=== PATIENT | male | born 1935 | race African-American/Black ===

== ENCOUNTER 2016-09-20 17:27 | Inpatient (IN) | payer MEDICARE, OTHER ==
[~2016-09-20] VITALS: Ht 188 cm; Wt 98.0 kg
[~2016-09-20 17:27] MED LIST: AMIODARONE HCL400 M1 ORAL; AMLODIPINE BESYL5 MG ORAL; AVODART0.5 MG ORAL; CARVEDILOL3.125 MG ORAL; COMBIVENT RESPIM4 GM IH; CRESTOR10 M1 ORAL; DOK250 M1 PO; FINASTERIDE5 MG ORAL; FUROSEMIDE20 M1 ORAL; HYDROCODON-ACE1 EA13 ORAL; KLOR-CON 88 MEQ ORAL; LEVAQUIN500 MG ORAL; LOPRESSOR25 M1 ORAL; LOSARTAN POTASS50 MG ORAL; LYRICA50 MG ORAL; MONTELUKAST SOD10 MG ORAL; NITROSTAT0.4 M2 SL; TEMAZEPAM30 MG ORAL; XARELTO10 MG ORAL
[2016-09-20 21:00] VITALS: BP 120/77
[2016-09-20] MEDS ORDERED: GABAPENTIN300 MG ORAL (22:10)
[2016-09-20] MEDS ORDERED: Norco 10mg/325mg tab ORAL PRN (22:30)
[2016-09-21] VITALS: BP 154/82
[2016-09-21] MEDS: DuoNeb 0.5-3(2.5)mg/3ml neb HHN SCH ×4 (02:11→19:00)
[2016-09-21 04:10] VITALS: BP 124/74
[2016-09-21] MEDS: Norco 10mg/325mg tab ORAL SCH ×2 (07:58→17:00)
[2016-09-21 08:00] VITALS: BP 123/80
[2016-09-21] MEDS: Docusate 250mg cap ORAL SCH (08:34)
[2016-09-21] MEDS: Losartan 50mg tab ORAL SCH (08:35)
[2016-09-21] MEDS: Amiodarone 200mg tab ORAL SCH (08:36)
[2016-09-21] MEDS ORDERED: Metoprolol 50mg tab ORAL SCH (09:00)
--- NOTE | 2016-09-21 09:18 | History and Physical Report ---
DATE OF ADMISSION: 09/20/2016 CHIEF COMPLAINT: CHF exacerbation. HISTORY OF PRESENT ILLNESS: The patient is a very pleasant, 80-year-old male. He has a history of hypertension, congestive heart failure, chronic atrial fibrillation, COPD, , BPH, and urinary retention. He has a prior history of aortic aneurysm status post repair. He was seen by his java software architect on the day of admission, complaints of lower extremity edema, worsening dyspnea on exertion and shortness of breath. He was diagnosed with CHF exacerbation. He has been on oral diuretic therapy, but did not improve and he is now admitted for further evaluation and care. PAST MEDICAL HISTORY: As above. PAST SURGICAL HISTORY: As above. MEDICATIONS: Current medications reconciled and reviewed. ALLERGIES: None. SOCIAL HISTORY: The patient is a prior smoker. No alcohol. no drugs. FAMILY HISTORY: None. REVIEW OF SYSTEMS: General: No fever or chills. HEENT: No headaches or visual changes. Cardiopulmonary: No chest pain. Positive shortness of breath and dyspnea on exertion. No orthopnea and PND. Gastrointestinal: No nausea or vomiting. Genitourinary: No urgency or frequency. Musculoskeletal: Positive joint swelling. Neurologic: No evidence of seizures. PHYSICAL EXAMINATION: VITAL SIGNS: Temperature 97.8 degrees, pulse 60, respirations 18, and blood pressure 124/74. GENERAL: The patient is a well-developed male, in no apparent distress. HEART: Regular rate and rhythm. NECK: There is no jugular venous distention. LUNGS: Clear except for diminished breath sounds and some rales at bases. ABDOMEN: Soft, nontender, and nondistended. EXTREMITIES: Without clubbing, cyanosis, or edema. LABORATORY DATA: Labs are pending. ASSESSMENT: This is a pleasant male who complaints of congestive heart failure exacerbation. Problems, 1. Congestive heart failure exacerbation. 2. History of thoracic aortic aneurysm status post repair. 3. Hypertension. 4. Paroxysmal atrial fibrillation. 5. Chronic obstructive pulmonary disease. PLAN: Diuresis. Follow up chest x-ray and labs. Supplemental oxygen as needed. DVT and stress ulcer prophylaxis. Sumit Hallman M.D. DR: Oliva JOB#: [id number] CC:
[2016-09-21 09:33] LABS: TROPONIN I < 0.30 ng/mL (<=0.30)
--- NOTE | 2016-09-21 09:51 | Diagnostic Imaging Report ---
Indication: Abnormal breath sounds Comparison: 11/07/14 A single view chest radiograph was obtained. Findings: Cardiomegaly and enlargement of the aorta noted. Pacemaker and sternotomy are present. Lungs are essentially clear. No pleural effusion appreciated. Impression: No acute disease
[2016-09-21 09:55] LABS: EOSINOPHILS % (AUTO) 10.4 % (0.0-3.0); LYMPHOCYTES % (AUTO) 26.5 % (20.0-45.0); MEAN CORPUSCULAR HEMOGLOBIN 27.9 PG (27.0-31.0); MEAN CORPUSCULAR HGB CONC 30.2 G/DL (32.0-36.0); MEAN CORPUSCULAR VOLUME 92 FL (80-99); MEAN PLATELET VOLUME 7.6 FL (6.5-10.1); MONOCYTES % (AUTO) 7.8 % (1.0-10.0); NEUTROPHILS % (AUTO) 54.3 % (45.0-75.0); PLATELET COUNT 121 K/UL (150-450); RED BLOOD COUNT 4.92 M/UL (4.70-6.10); RED CELL DISTRIBUTION WIDTH 15.1 % (11.6-14.8); WHITE BLOOD COUNT 6.4 K/UL (4.8-10.8)
[2016-09-21 10:06] LABS: ALANINE AMINOTRANSFERASE 9 U/L (3-41); ANION GAP 14 (5-15); ASPARTATE AMINO TRANSFERASE 15 U/L (5-40); CALCIUM 10.3 mg/dL (8.6-10.2); CARBON DIOXIDE 30 mEQ/L (20-30); CHLORIDE 95 mEQ/L (98-107); HEMOLYSIS 3; MAGNESIUM 1.7 mg/dL (1.7-2.5); POTASSIUM 3.5 mEQ/L (3.4-4.9); SODIUM 139 mEQ/L (135-145); TOTAL PROTEIN 7.8 g/dL (6.6-8.7)
[2016-09-21 10:17] LABS: THYROID STIMULATING HORMONE 0.723 uIU/mL (0.300-4.500)
[2016-09-21] MEDS: Norco 10mg/325mg tab ORAL PRN (11:48)
[2016-09-21 12:00] VITALS: BP 110/74
[2016-09-21] MEDS: Solu-MEDROL 40mg Inj IVP SCH ×2 (14:14→20:58)
[2016-09-21 16:00] VITALS: BP 137/91
[2016-09-21] MEDS: Montelukast 10mg tablet ORAL SCH (16:58)
[2016-09-21] MEDS: Xarelto 10mg tab ORAL SCH (16:58)
[2016-09-21 20:00] VITALS: BP 107/71
[2016-09-21] MEDS: Metoprolol 25mg tab ORAL SCH (20:58)
[2016-09-22] VITALS: BP 113/75
[2016-09-22] MEDS: Norco 10mg/325mg tab ORAL SCH ×3 (00:10→13:25)
[2016-09-22] MEDS: DuoNeb 0.5-3(2.5)mg/3ml neb HHN SCH ×2 (01:00→07:22)
[2016-09-22 04:00] VITALS: BP 119/76
--- NOTE | 2016-09-22 05:19 | Progress Note ---
DATE: 09/21/2016 CARDIOLOGY PROGRESS NOTE SUBJECTIVE: The patient feels better. Still short of breath and congested. No chest pain. Monitored rhythm is atrial paced with rare PVC. OBJECTIVE: VITAL SIGNS: Blood pressure 107/71, heart rate 60, and respiratory rate 18. NECK: Supple. LUNGS: With coarse breath sounds and rhonchi. HEART: Regular rhythm and rate. Normal S1 and S2. ABDOMEN: Soft. EXTREMITIES: Trace to 1+ ankle edema, but improved. LABORATORY DATA: White count 6.4, hemoglobin 13.7, potassium 3.5, BUN 9, and creatinine 1. Troponin negative. Pro-natriuretic peptide 279. TSH 0.7. Magnesium 1.7. IMPRESSION: 1. Chronic obstructive pulmonary disease exacerbation. 2. Permanent pacemaker. 3. Dmycf-zv-vonqfsd diastolic congestive heart failure. 4. Status post repair of thoracic aortic aneurysm. 5. Borderline potassium and magnesium levels. PLAN: 1. Continue inhaled bronchodilator. 2. Decrease beta-elyssa. 3. Maintenance dose amiodarone. 4. Steroid taper. 5. Nebulizer for home use. Yvan Encarnacion M.D. DR: Mike JOB#: [id number] CC:
[2016-09-22] MEDS: Norco 10mg/325mg tab ORAL PRN (06:28)
[2016-09-22 07:58] VITALS: BP 128/78
[2016-09-22] MEDS ORDERED: KCl 10% 20 mEq/15ml liquid ORAL ONE (08:00)
[2016-09-22] MEDS ORDERED: KCl 10% 40mEq/30ml liquid ORAL ONE (10:00)
[2016-09-22] MEDS: Losartan 50mg tab ORAL SCH (10:04)
[2016-09-22] MEDS: Amiodarone 200mg tab ORAL SCH (10:05)
[2016-09-22] MEDS: Metoprolol 25mg tab ORAL SCH (10:05)
[2016-09-22] MEDS: Docusate 250mg cap ORAL SCH (10:05)
[2016-09-22] MEDS: Solu-MEDROL 40mg Inj IVP SCH (10:05)
[2016-09-22 11:38] VITALS: BP 136/88
[2016-09-22 15:38] VITALS: BP 114/71
[2016-09-22] MEDS: Xarelto 10mg tab ORAL SCH (16:30)
[2016-09-22] MEDS: Montelukast 10mg tablet ORAL SCH (17:58)
--- NOTE | 2016-09-22 22:48 | Discharge Summary ---
DATE OF ADMISSION: 09/20/2016 DATE OF DISCHARGE: 09/22/2016 ADMISSION DIAGNOSES: 1. Acute on chronic diastolic and systolic heart failure exacerbation. 2. History of thoracic aortic aneurysm status post repair. 3. Hypertension. 4. History of anemia. 5. Chronic kidney disease. 6. Chronic obstructive pulmonary disease. DISCHARGE DIAGNOSES: 1. Acute on chronic diastolic and systolic heart failure exacerbation. 2. History of thoracic aortic aneurysm status post repair. 3. Hypertension. 4. History of anemia. 5. Chronic kidney disease. 6. Chronic obstructive pulmonary disease. HOSPITAL COURSE: The patient is a very pleasant male admitted with complaints of shortness of breath and lower extremity edema. He was admitted for diuretic therapy. He received intravenous Lasix, respiratory treatments, and steroids. He improved quickly. On discharge, he was doing well. The patient will be discharged home with close outpatient followup. DISCHARGE MEDICATIONS: Please see discharge medication list for discharge medications. DIET: Cardiac diet. ACTIVITY: Ad-amy. FOLLOWUP: The patient will follow up in one to two weeks in the office. Sumit Hallman M.D. DR: SERA JOB#: [id number] CC:
--- NOTE | 2016-09-23 00:59 | Progress Note ---
DATE: 09/22/2016 CARDIOLOGY PROGRESS NOTE SUBJECTIVE: The patient has less congestion. No shortness of breath or chest pain. Nebulizer was requested yesterday, however, the order has still not been processed by 4 p.m. OBJECTIVE: VITAL SIGNS: Blood pressure 128/78 to 136/88, oxygen saturation on room air 96%, heart rate 60 and atrial paced, and respiratory rate 20. He is afebrile. HEENT: Conjunctivae are pink. Sclerae are anicteric. No sinus tenderness. Oropharynx clear. Trachea midline. LUNGS: Coarse breath sounds. No wheezing or rales. HEART: Regular rhythm and rate. Normal S1 and S2 with a fourth heart sound and a 1/6 systolic murmur at apex. ABDOMEN: Soft. EXTREMITIES: There is no edema. IMPRESSION: 1. Chronic obstructive pulmonary disease exacerbation, improved. 2. Hypertensive heart disease, now with controlled blood pressure range overall. 3. Acute on chronic diastolic congestive heart failure, clinically compensated. 4. History of thoracic aortic aneurysm repair. 5. Permanent pacemaker. 6. Paroxysmal bronchospasm. PLAN: 1. Outpatient followup. 2. Nebulizer for home use on a p.r.n. basis. 3. Salt restriction. 4. Taper beta blockers. 5. Continue amiodarone. 6. Further medication adjustments will follow as an outpatient as the patient is stable for lower level of care. Yvan Encarnacion M.D. DR: AIYANA JOB#: [id number] CC:
--- NOTE | 2016-09-23 02:08 | Consultation ---
DATE OF CONSULTATION: 09/20/2016 CARDIOLOGY CONSULTATION CONSULTING PHYSICIAN: Yvan Encarnacion M.D. REQUESTING PHYSICIAN: Sumit Hallman M.D. REASON FOR CONSULTATION: Congestive heart failure exacerbation. HISTORY: This is an 80-year-old male with a longstanding history of hypertensive heart disease, paroxysmal atrial fibrillation, and permanent pacemaker. He has undergone repair of a thoracic aortic aneurysm about two years ago. He has been managed medically and remains on antiarrhythmics including amiodarone. The patient was seen in my office last several days ago and noted to have increasing congestion and shortness of breath. He was started on a low-dose diuretic and inhaled bronchodilator. He states that he has difficulty using the inhalers. He continued to progress with the symptoms noted and hospitalization has been initiated due to failure to improve with outpatient management. PAST MEDICAL HISTORY: Permanent pacemaker, chronic obstructive pulmonary disease, status post thoracic aortic aneurysm repair, hypertensive heart disease, diastolic dysfunction, degenerative valve disease, degenerative disk disease, osteoarthritis, prostatic hypertrophy, diverticular disease, paroxysmal atrial fibrillation, and hypothyroidism. MEDICATIONS: Prior to admission, reviewed and reconciled. ALLERGIES: None. SOCIAL HISTORY: Prior smoker. No alcohol or substance abuse. He is a [employer]oration[employer]. REVIEW OF SYSTEMS: No fevers. Some nonproductive cough. No loss of vision or hearing. No chest pain. Some leg swelling noted. He gained a few pounds over the past few days. He has some mucus production that is clear. He has no melena or bright red blood per rectum. He occasionally has difficulty voiding, but no recent change. He has chronic back and hip pain. There is no history of seizure or stroke. Recent echocardiogram revealed normal ejection fraction with concentric hypertrophy and mild tricuspid regurgitation. The patient ambulates with a walker or cane. IMPRESSION: 1. Acute on chronic diastolic congestive heart failure. 2. Paroxysmal atrial fibrillation maintaining sinus rhythm on amiodarone. 3. Permanent pacemaker. 4. History of thoracic aortic aneurysm repair. 5. Chronic obstructive pulmonary disease with mild exacerbation and difficulty using HFA inhalers. 6. Degenerative disk disease with gait abnormality and chronic pain. PLAN: 1. Cautious diuresis. 2. Titrate . 3. Consider steroids if symptoms progress. 4. Mobilize with pain control and fall precautions. Yvan Encarnacion M.D. DR: AIYANA JOB#: [id number] CC:
== END 2016-09-22 18:26 | disposition home or self-care (01) | DRG 291 ==
LOC: 2E 20:00
DX: I13.0 Hypertensive heart and chronic kidney disease with heart failure and stage 1 through stage 4 chronic kidney disease, or unspecified chronic kidney disease (principal); I50.33 Acute on chronic diastolic (congestive) heart failure; J44.1 Chronic obstructive pulmonary disease with (acute) exacerbation; I48.0 Paroxysmal atrial fibrillation; N18.9 Chronic kidney disease, unspecified; N40.1 Benign prostatic hyperplasia with lower urinary tract symptoms; R33.8 Other retention of urine; Z95.0 Presence of cardiac pacemaker
CPT/HCPCS: 36415; 71010; 80053; 83735; 83880; 84443; 84484; 85025; 94640; 94664; J7620

== ENCOUNTER 2017-03-09 11:19 | Outpatient (CLI) | payer MEDICARE, OTHER ==
[~2017-03-09 11:19] MED LIST changes: +GABAPENTIN300 MG ORAL
--- NOTE | 2017-03-09 12:14 | Diagnostic Imaging Report ---
Indication: Chest pain Technique: Two views of the chest Comparison: 09/21/2016 Findings: There is evidence of prior valve replacement and left atrial appendage clipping. Left chest pacemaker is again demonstrated. The lungs and pleural spaces are clear. Heart size is normal. Aorta is tortuous. Impression: No acute process. Stable findings as described
== END 2017-03-09 13:19 | disposition home or self-care (01) ==
LOC: RAD 11:19
DX: R04.2 Hemoptysis (principal); R07.9 Chest pain, unspecified; Z95.0 Presence of cardiac pacemaker; Z95.2 Presence of prosthetic heart valve
CPT/HCPCS: 71020

== ENCOUNTER 2017-08-08 11:59 | Inpatient (IN) | payer MEDICARE, OTHER ==
[~2017-08-08] VITALS: Ht 188 cm; Wt 99.8 kg
[2017-08-08] MEDS ORDERED: FUROSEMIDE20 M1 PO (15:38)
[2017-08-08] MEDS ORDERED: METOPROLOL SUCC25 MG PO (15:38)
[2017-08-08] MEDS ORDERED: FINASTERIDE5 MG PO (15:38)
[2017-08-08] MEDS ORDERED: LOSARTAN POTAS100 MG PO (15:38)
[2017-08-08] MEDS ORDERED: VITAMIN D22000 UNIT PO (15:39)
[2017-08-08 16:00] VITALS: BP 125/75
[2017-08-08] MEDS: HYDROcodone/Acetamin 10/325 tab ORAL PRN (17:41)
[2017-08-08] MEDS: Docusate 250mg cap ORAL SCH (19:00)
[2017-08-08 19:54] LABS: BASOPHILS % (AUTO) 0.9 % (0.0-2.0); EOSINOPHILS % (AUTO) 2.8 % (0.0-3.0); HEMATOCRIT 36.5 % (42.0-52.0); HEMOGLOBIN 11.4 G/DL (14.2-18.0); LYMPHOCYTES % (AUTO) 19.4 % (20.0-45.0); MEAN CORPUSCULAR VOLUME 91 FL (80-99); MONOCYTES % (AUTO) 7.5 % (1.0-10.0); NEUTROPHILS % (AUTO) 69.4 % (45.0-75.0); PLATELET COUNT 135 K/UL (150-450); RED BLOOD COUNT 4.02 M/UL (4.70-6.10); RED CELL DISTRIBUTION WIDTH 15.5 % (11.6-14.8); WHITE BLOOD COUNT 7.3 K/UL (4.8-10.8)
[2017-08-08 20:00] VITALS: BP 101/64
[2017-08-08 20:10] LABS: ALANINE AMINOTRANSFERASE 13 U/L (12-78); ALBUMIN 3.4 G/DL (3.4-5.0); ALBUMIN/GLOBULIN RATIO 0.8 (1.0-2.7); ALKALINE PHOSPHATASE 60 U/L (46-116); ANION GAP 4 mmol/L (5-15); ASPARTATE AMINO TRANSFERASE 13 U/L (15-37); BILIRUBIN,TOTAL 0.8 MG/DL (0.2-1.0); BLOOD UREA NITROGEN 11 mg/dL (7-18); CALCIUM 9.9 MG/DL (8.5-10.1); CARBON DIOXIDE 33 MMOL/L (21-32); CHLORIDE 105 MMOL/L (98-107); CHOLESTEROL 138 MG/DL (< 200); CREATININE 1.2 MG/DL (0.55-1.30); HDL CHOLESTEROL 79 MG/DL (40-60); SODIUM 142 MMOL/L (136-145); TRIGLYCERIDES 19 MG/DL (30-150)
[2017-08-08] MEDS: Atorvastatin 20mg tab ORAL SCH (21:15)
[2017-08-08] MEDS: Lyrica 50mg cap ORAL SCH (21:18)
[2017-08-09] VITALS: BP 115/74
[2017-08-09 04:00] VITALS: BP_SYST 110; BP_SYST 99; BP_DIAS 50; BP_DIAS 69
[2017-08-09 08:00] VITALS: BP 118/75
[2017-08-09] MEDS ORDERED: Xarelto 10mg tab ORAL SCH (09:00)
[2017-08-09] MEDS: HYDROcodone/Acetamin 10/325 tab ORAL PRN ×2 (09:16→20:14)
[2017-08-09] MEDS: Montelukast 10mg tablet ORAL SCH (09:23)
[2017-08-09] MEDS: Docusate 250mg cap ORAL SCH (09:23)
[2017-08-09] MEDS: Metoprolol Succinate XL 25mg tab ORAL SCH (09:23)
[2017-08-09] MEDS: Losartan 50mg tab ORAL SCH (09:24)
[2017-08-09] MEDS: Amiodarone 200mg tab ORAL SCH (09:25)
[2017-08-09] MEDS: Lyrica 50mg cap ORAL SCH ×2 (09:26→21:04)
--- NOTE | 2017-08-09 09:29 | Diagnostic Imaging Report ---
Indication: Altered mental status Technique: spiral acquisitions obtained through the brain. Angled axial and coronal 5 x 5 mm slices were reconstructed. No IV contrast utilized. Radiation dose was minimized using automated exposure control Total dose length product 1354.97 mGycm. CTDIvol(s) 70.38 mGy Comparison: none FINDINGS: No acute hemorrhage or edema. No mass effect or midline shift. There is age-related enlargement of the ventricles and extra axial CSF spaces. There is periventricular deep white matter ischemic change. Normal hamilton-white differentiation. There is evidence of prior bilateral cataract surgery. There is bilateral ethmoid and right sphenoid sinus mucosal thickening. The mastoids are clear. Intact calvarium. IMPRESSION: Chronic and age-related changes. Negative for acute intracranial bleed or mass effect -Agrees stat rad The CT scanner at [facility] is accredited by the [employer] and the scans are performed using protocols designed to limit radiation exposure to as low as reasonably achievable to attain images of sufficient resolution adequate for diagnostic evaluation
[2017-08-09 12:00] VITALS: BP 134/77
--- NOTE | 2017-08-09 12:21 | Neurology Progress Note ---
Objective Physical Exam Last Vital Signs Date Time Temp Pulse Resp B/P (MAP) Pulse Ox O2 Delivery O2 Flow Rate FiO2 08/09/17 10:15 98.4 08/09/17 09:26 63 118/75 08/09/17 08:00 19 98 Room Air Laboratory Tests Test 08/08/17 19:00 White Blood Count 7.3 K/UL (4.8-10.8) Red Blood Count 4.02 M/UL (4.70-6.10) L Hemoglobin 11.4 G/DL (14.2-18.0) L Hematocrit 36.5 % (42.0-52.0) L Mean Corpuscular Volume 91 FL (80-99) Mean Corpuscular Hemoglobin 28.4 PG (27.0-31.0) Mean Corpuscular Hemoglobin Concent 31.3 G/DL (32.0-36.0) L Red Cell Distribution Width 15.5 % (11.6-14.8) H Platelet Count 135 K/UL (150-450) L Mean Platelet Volume 10.6 FL (6.5-10.1) H Neutrophils (%) (Auto) 69.4 % (45.0-75.0) Lymphocytes (%) (Auto) 19.4 % (20.0-45.0) L Monocytes (%) (Auto) 7.5 % (1.0-10.0) Eosinophils (%) (Auto) 2.8 % (0.0-3.0) Basophils (%) (Auto) 0.9 % (0.0-2.0) Sodium Level 142 MMOL/L (136-145) Potassium Level 4.0 MMOL/L (3.5-5.1) Chloride Level 105 MMOL/L (98-107) Carbon Dioxide Level 33 MMOL/L (21-32) H Anion Gap 4 mmol/L (5-15) L Blood Urea Nitrogen 11 mg/dL (7-18) Creatinine 1.2 MG/DL (0.55-1.30) Estimat Glomerular Filtration Rate mL/min (>60) Glucose Level 136 MG/DL (74-106) H Calcium Level 9.9 MG/DL (8.5-10.1) Total Bilirubin 0.8 MG/DL (0.2-1.0) Aspartate Amino Transf (AST/SGOT) 13 U/L (15-37) L Alanine Aminotransferase (ALT/SGPT) 13 U/L (12-78) Alkaline Phosphatase 60 U/L (46-116) Total Protein 7.5 G/DL (6.4-8.2) Albumin 3.4 G/DL (3.4-5.0) Globulin 4.1 g/dL Albumin/Globulin Ratio 0.8 (1.0-2.7) L Triglycerides Level 19 MG/DL (30-150) L Cholesterol Level 138 MG/DL (< 200) LDL Cholesterol 61 mg/dL (<100) HDL Cholesterol 79 MG/DL (40-60) H Cholesterol/HDL Ratio 1.7 (3.3-4.4) L Impression/Recommendations Problems: (1) acute onset left [place] pulsy. (2) Generalized ischemic cerebrovascular disease Status: not improved, unchanged Recommendations #[id number] MOSHE RUSHING Aug 09, 2017 12:21
[2017-08-09 16:00] VITALS: BP 107/69
--- NOTE | 2017-08-09 16:15 | History and Physical Report ---
DATE OF ADMISSION: 08/08/2017 CHIEF COMPLAINT: Possible stroke. HISTORY OF PRESENT ILLNESS: The patient is a pleasant male. He has extensive past medical history includes a history of thoracic aneurysm, status post repair, hypertension, hypertensive heart disease, history of paroxysmal atrial fibrillation, and DVT. He presented to the office on the day of admission with complaints of drooping of the left face. According to the patient and his , he noted the onset of left facial droop and difficulty swallowing about two days prior to admission. He did not present until now. He denies any focal weakness or numbness. He has been drooling. He denies any headaches or visual changes. The patient was directly admitted with concern about a possible stroke. PAST MEDICAL HISTORY: As above. PAST SURGICAL HISTORY: Thoracic aneurysm repair, history of pacemaker, paroxysmal atrial fibrillation, COPD, history of degenerative disk disease, lumbar radiculopathy, and peripheral neuropathy. CURRENT MEDICATIONS: Reconciled and reviewed. ALLERGIES: None. FAMILY HISTORY: None. SOCIAL HISTORY: Negative for alcohol or drugs. The patient is a prior smoker. 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 PHYSICAL EXAMINATION: HEENT: There is a left facial droop. Pupils are equal, round, and reactive to light. Oropharynx clear. NECK: Supple. No jugular venous distention. No carotid bruits. HEART: Regular rate and rhythm. LUNGS: Clear. ABDOMEN: Soft, nontender, and nondistended. EXTREMITIES: Without clubbing, cyanosis, or edema. LABORATORY AND DIAGNOSTIC DATA: Labs, white count 7, hemoglobin 11. LDL 61. CT of the head currently pending. ASSESSMENT: This is a pleasant male admitted with complaints of left facial droop possibly secondary to stroke or possibly Lieberman's palsy. PROBLEM LIST: 1. Possible cerebrovascular accident, possible Lieberman's palsy. 2. History of thoracic aneurysm, status post repair. 3. Conduction system disease, status post pacemaker. 4. Hypertension. 5. COPD. 6. History of chronic lower back pain. 7. Peripheral neuropathy. PLAN: CT of the head. We will hold Xarelto until bleed has been ruled out. Neurology and Cardiology evaluations. Continue outpatient cardiac regimen. Get a swallow evaluation. Sumit Hallman M.D. DR: CLEOPATRA JOB#: [id number] CC:
[2017-08-09 20:00] VITALS: BP 129/78
--- NOTE | 2017-08-09 20:00 | Consultation ---
DATE OF CONSULTATION: 08/09/2017 NEUROLOGICAL CONSULTATION CONSULTING PHYSICIAN: Ambrosio Clark M.D. REQUESTING PHYSICIAN: Sumit Hallman M.D. HISTORY OF PRESENT ILLNESS: This 81-year-old gentleman seen in neurological consultation to evaluate the possible stroke. According to the patient in the last couple of months, he is bothered with hemoptysis. He was seen recently by a "specialist" and no cause of bleeding from his throat noted. Yesterday, he noticed that food was drooling from left side of the mouth. With this, he was sent to this facility for further assessment and treatment. Stat CT of the brain was obtained. This revealed no evidence of acute intracranial abnormalities. There were periventricular deep white matter ischemic changes. No evidence of acute stroke. No hemorrhage. No midline shift. Lab work included chemistry panel with blood sugar 136. Normal lipid panel. CBC study with mild anemia, hemoglobin 11.4 and hematocrit 36.5. Since admission till present, there were no further changes. The patient informed me that physical therapy was seeing him this morning and assisted him with ambulation. There were no changes in his gait. He was evaluated by Speech Therapy, found with mild aphagia, and placed on soft mechanical diet. PAST MEDICAL HISTORY: The patient has history of hypertension, hypertensive heart disease, history of paroxysmal atrial fibrillation. He underwent thoracic aortic aneurysm repair two years ago, following which he developed abnormal gait. He has a history of diastolic dysfunction, degenerative joint disease, prostatic hypertrophy, hypothyroidism, and COPD. MEDICATIONS: His treatment prior to admission included amiodarone, Avodart, vitamin D, finasteride, furosemide, gabapentin 300 mg q.i.d., [place] as needed, losartan, metoprolol, montelukast, nitro, Lyrica 100 mg b.i.d., Xarelto 20 mg daily, Crestor 10 mg daily, and temazepam. ALLERGIES: None reported. SOCIAL HISTORY: The patient lives at home. He has no history of alcohol or drug abuse. Previously a smoker. Hinduism. FAMILY HISTORY: Noncontributory. REVIEW OF SYMPTOMS: The patient indicates presence of facial asymmetry, feeling left eye getting slightly larger with some redness yesterday. He denies unilateral weakness, numbness, tingling. He admitted having hoarse voice, in the last couple of months hemoptysis. Shortness of breath on exertion. No chest pain. No palpitations. Gait abnormal, using walker, limited ambulation. PHYSICAL EXAMINATION: GENERAL: A well-developed, well-nourished, pleasant man, not in acute distress. VITAL SIGNS: Now are stable. Blood pressure 118/75, heart rate of 63, and temperature 98.3. HEENT: Head is normocephalic. There is no evidence of trauma. Eyes, ears, and throat are clear. There is slight tearing from the left eye. CRANIAL NERVE VII: Significant left facial droop, mild left periorbital weakness. CRANIAL NERVE IX THROUGH XII: Tongue is midline. Voice somewhat hoarse. Normal palate elevation. MOTOR EXAMINATION: Normal muscle tone and strength 5/5 in all extremities. There is a slight decrease in lateral hamstring 5-/5. Muscle tone is normal. Deep tendon reflexes 1+ bilaterally symmetric with absent both ankle jerks. Plantar response is flexor. No pathological responses. SENSORY: Normal to pinprick and light touch. COORDINATION: Normal [id number] test. GAIT: Positive Romberg test. Gait very ataxia . IMPRESSION: 1. New onset of left-sided Lieberman's palsy. Rule out minor right-sided lacunar stroke, ?old versus new. 2. Ischemic cerebrovascular disease, probably previous lacunar stroke without gait ataxia. 3. Paroxysmal atrial fibrillation. 4. Hypertension. 5. Status post thoracic aortic aneurysm repair. 6. Chronic obstructive pulmonary disease. 7. Hemoptysis. RECOMMENDATION: The patient has no strong evidence of acute stroke, but has definite peripheral left facial palsy. There is minor strength asymmetry in both lower extremities, which may indicate old lacunar stroke. This goes back to the time where the patient had acute onset of gait ataxia, which he claims occurred after having thoracic surgery. At this time, the patient to continue with his current treatment. A short course of steroid may improve outcome. Thank you for allowing me to see this interesting patient in neurological consultation. Ambrosio Clark M.D. DR: Shira JOB#: [id number] CC:
[2017-08-09] MEDS: Atorvastatin 20mg tab ORAL SCH (21:03)
[2017-08-10] VITALS: BP 128/74
[2017-08-10 04:00] VITALS: BP 111/73
--- NOTE | 2017-08-10 05:00 | Consultation ---
DATE OF CONSULTATION: 08/08/2017 CARDIOLOGY CONSULTATION The patient is seen in my office earlier today. REASON FOR CONSULTATION: Possible acute cerebrovascular insult in the setting of paroxysmal atrial fibrillation and coagulopathy due to rivaroxaban therapy. HISTORY OF PRESENT ILLNESS: This is a male, known to me for over 20 years of care. He is now 81 years of age. He presented to the office for evaluation of drooping of his left face with difficulty holding his secretions and chewing as well as swallowing. The symptoms have been ongoing for two days prior to admission and apparently worsened today. No weakness of his extremities was noted and he has been compliant with all his medications including his rivaroxaban anticoagulant. PAST MEDICAL HISTORY: 1. Status post repair of thoracic aortic aneurysm. 2. Paroxysmal atrial fibrillation. 3. Hypertensive heart disease. 4. Chronic obstructive pulmonary disease. 5. Permanent pacemaker. 6. Degenerative disk disease with chronic lumbar radiculopathy. 7. Peripheral neuropathy. MEDICATIONS: Prior to admission, reviewed and reconciled. ALLERGIES: None. SOCIAL HISTORY: Former smoker. He is a Christianity. No alcohol or substance abuse. FAMILY HISTORY: None known. PHYSICAL EXAMINATION: VITAL SIGNS: Blood pressure 125/75, pulse 60, respiratory rate 18, and afebrile. HEENT: Conjunctiva pink. Sclerae are anicteric. There is difficulty with strength of the left eye muscles. There is droop of the left facies. NECK: Supple. LUNGS: Coarse breath sounds. CARDIAC: Regular rhythm and rate. Normal S1, S2 with a 1/6 systolic murmur at the apex. Pacemaker pocket site noted. ABDOMEN: Soft. EXTREMITIES: No edema. All surgical scars are healed. LABORATORY AND DIAGNOSTIC DATA: CAT scan of the brain with no acute process. Monitored rhythm reveals atrial pacing. White count 7.3 and hemoglobin 11.4. Potassium 4, BUN 11, and creatinine 1.2. Glucose 136. LDL cholesterol 61. IMPRESSION: 1. Possible acute cerebrovascular insult versus Lieberman's palsy on the left. 2. Hypertensive heart disease with controlled blood pressure. 3. Paroxysmal atrial fibrillation maintaining sinus rhythm with amiodarone. 4. Permanent pacemaker with stable function. 5. Chronic obstructive pulmonary disease with no active bronchospasm. 6. Diastolic dysfunction with no signs of acute congestive heart failure. 7. History of thoracic aortic aneurysm repair. PLAN: 1. Neurologic evaluation. 2. Full anticoagulation. 3. Titrate antihypertensives. 4. P.r.n. bronchodilators. 5. Aspiration precautions. 6. Consider steroids if acute stroke is ruled out. This may limit affects of Lieberman's palsy. Yvan Phil Encarnacion DR: AIYANA JOB#: [id number] CC:
--- NOTE | 2017-08-10 05:00 | Progress Note ---
DATE: 08/09/2017 CARDIOLOGY PROGRESS NOTE SUBJECTIVE: The patient continues to have difficulty with chewing and he still has drooping of his left facies. He has not had any weakness of his left extremities. PHYSICAL EXAMINATION: VITAL SIGNS: Blood pressure 129/78, pulse 62, respiratory rate 16, and afebrile. Monitored rhythm is paced. LUNGS: Coarse breath sounds. HEART: Regular rhythm and rate. Normal S1, S2. ABDOMEN: Soft, no edema. NEUROLOGIC: Left facies with droop. Tongue is midline and there is also weakness of his left eye muscle. IMPRESSION: 1. Lieberman's palsy. 2. Cerebrovascular disease with prior lacunar infarct. 3. Hypertensive cardiomyopathy. 4. Paroxysmal atrial fibrillation. 5. Permanent pacemaker. 6. Status post repair of thoracic aortic aneurysm. 7. Chronic obstructive pulmonary disease. PLAN: 1. Steroid trial. 2. Titrate antihypertensives. 3. Maintenance dose diuretic. 4. Continue amiodarone for maintenance of sinus rhythm. 5. Full anticoagulation with rivaroxaban. Yvan Encarnacion M.D. DR: ANDREW JOB#: [id number] CC:
[2017-08-10] MEDS: HYDROcodone/Acetamin 10/325 tab ORAL PRN (05:18)
[2017-08-10 08:00] VITALS: BP 104/75
[2017-08-10] MEDS: Amiodarone 200mg tab ORAL SCH (09:00)
[2017-08-10] MEDS ORDERED: Xarelto 10mg tab ORAL SCH (09:00)
[2017-08-10] MEDS: Metoprolol Succinate XL 25mg tab ORAL SCH (09:00)
[2017-08-10] MEDS: Losartan 50mg tab ORAL SCH (09:00)
[2017-08-10] MEDS: Docusate 250mg cap ORAL SCH (09:01)
[2017-08-10] MEDS: Montelukast 10mg tablet ORAL SCH (09:01)
[2017-08-10] MEDS: Lyrica 50mg cap ORAL SCH ×2 (09:02→21:00)
--- NOTE | 2017-08-10 11:45 | Neurology Progress Note ---
Interim History Interim History ROS Limited/Unobtainable: No Complaints: hemoptysis, very concern. Events: started on steroids , no change in facial palsy Objective Physical Exam Last Vital Signs Date Time Temp Pulse Resp B/P (MAP) Pulse Ox O2 Delivery O2 Flow Rate FiO2 08/10/17 09:00 68 104/75 08/10/17 08:00 97.6 18 99 Room Air 97.6 General: well developed, well nourished, no acute distress Head: normocophalic, atraumatic Neck: no rigidity Neurologic Exam Mental Status: awake, alert, oriented x4, normal cognition Speech: normal speech, no dysarthia Language: normal language, no aphasia Cranial Nerve II: fundus normal, visual steele, no papilledema Cranial Nerves III, IV, : PERRLA, EOMI, pupils Cranial Nerve V: other - reduced PP L face Cranial Nerve VII: other - L face droop weakness L periorbital muscles Cranial Nerve VIII: no nystagmus Cranial Nerve IX: gag response Cranial Nerve XI: SCM symmetric, trapezii function normal Cranial Nerve XII: tongue midline, no tongue atrophy/fasciculations Motor System: normal muscle tone, strength 5/5, no involuntary movement, no muscle wasting Sensory: normal pinprick Coordination: normal finger to nose bilaterally, normal heel to jacob bilaterally Deep Tendon Reflexes: 0 bicep (L), 0 bicep (R), 0 tricep (L), 0 tricep (R), 0 brachioradialis (L), 0 brachioradialis (R), 0 knee (L), 0 knee (R), 0 ankle (L) , 0 ankle (R) Reflexes: mute plantar (L), mute plantar (R) Impression/Recommendations Problems: (1) acute onset left [place] pulsy. (2) Generalized ischemic cerebrovascular disease Status: stable, not improved, unchanged Recommendations #[id number] ok steroids x 6 days w/u of hemoptysis ? ENT MOSHE RUSHING Aug 10, 2017 11:45
[2017-08-10 12:00] VITALS: BP 123/73
[2017-08-10] MEDS ORDERED: Norco 5mg/325mg tab ORAL PRN (13:15)
[2017-08-10] MEDS ORDERED: HYDROcodone/Acetamin 10/325 tab ORAL PRN (13:30)
--- NOTE | 2017-08-10 15:09 | Diagnostic Imaging Report ---
Indication: Difficulty swallowing, left facial droop Technique: No IV contrast, per referring physician request Spiral acquisitions obtained through the face and neck Multiplanar reconstructions were generated. Total dose length product 697.57 mGycm. CTDIvol(s) 20.06 mGy. Radiation dose was minimized using automated exposure control. Facial and neck CT ordered; imaging volume extended cephalad to include the entire face Comparison: none Findings: The nasopharynx, oropharynx and hypopharynx, larynx are unremarkable. The cervical esophagus and proximal thoracic esophagus are unremarkable. The bilateral parapharyngeal spaces are clear, symmetric. No prevertebral soft tissue swelling is demonstrated. Minimal mucosal thickening is seen in the bilateral ethmoid sinuses, the right sphenoid sinus, and the left maxillary sinus. Polyp or mucocyst retention cyst is seen in the floor of the left maxillary sinus. There is questionably a faint calcification within the right submandibular gland. The salivary glands are otherwise unremarkable. No cervical mass or adenopathy. There is evidence of extensive prior dental extractions. The mastoid air cells are clear. The bones demonstrate reversal of the normal cervical lordosis, extensive cervical spondylosis, and at least mild lower cervical spinal stenosis. There is evidence of prior laminectomies of C3 and C4. There is extensive facet arthrosis and likely significant neural foraminal stenoses bilaterally. The thyroid is mildly enlarged and bulky but no discrete abnormality demonstrated. The included upper thoracic structures are remarkable for the presence of pulmonary hyperinflation and bullous changes. A calcified granuloma is seen in the right upper lobe. The ascending thoracic aorta is ectatic bordering on aneurysmal. Surgical clips are seen surrounding it and intake history describes prior surgical repair. The descending thoracic aorta is also aneurysmal proximally. There is a left chest pacemaker. No supraclavicular mass or adenopathy demonstrated. Impression: No definite mass or abnormality demonstrated to explain surgically history of difficulty swallowing. Note that evaluation for possible abscess is limited in the absence of IV contrast, but there is no soft tissue swelling or other finding to suggest such Mild sinus disease, as described Extensive cervical spondylosis and at least mild lower cervical spinal stenosis. Evidence of prior C3 and C4 laminectomies. Other degenerative changes, as described Mildly enlarged bulky thyroid, without discrete abnormality Equivocal small right submandibular salivary gland sialolith Evidence of COPD Evidence of old granulomatous disease in the right upper lobe Ectasia and aneurysmal changes of the visualized thoracic aorta, with postsurgical changes, clinical history of prior thoracic aortic aneurysm surgical repair Pacemaker The CT scanner at [facility] is accredited by the [employer] and the scans are performed using protocols designed to limit radiation exposure to as low as reasonably achievable to attain images of sufficient resolution adequate for diagnostic evaluation.
[2017-08-10 16:00] VITALS: BP 106/62
--- NOTE | 2017-08-10 16:14 | Cardiology Report ---
APPROVED REPORT EKG Measurement Heart [id number] CO 308P [id number] Atrial Pacemaker Left axis deviation Left ventricular hypertrophy with QRS widening and repolarization abnormality Abnormal ECG
[2017-08-10 20:00] VITALS: BP 104/70
--- NOTE | 2017-08-10 21:40 | General Progress Note ---
Assessment/Plan Problem List: (1) Hemoptysis ICD Codes: R04.2 - Hemoptysis SNOMED: 50070766 (2) Stroke ICD Codes: I63.9 - Cerebral infarction, unspecified SNOMED: 047317120 (3) acute onset left [place] pulsy. (4) COPD exacerbation ICD Codes: J44.1 - Chronic obstructive pulmonary disease with (acute) exacerbation SNOMED: 128178435 (5) Acute exacerbation of CHF (congestive heart failure) Status: stable Assessment/Plan steroids speech rx hold antiplt rx D/w - to have laryngoscopy follow ct neck Subjective ROS Limited/Unobtainable: No Constitutional: Reports: malaise, weakness HEENT: Reports: no symptoms Cardiovascular: Reports: no symptoms Respiratory: Reports: no symptoms Gastrointestinal/Abdominal: Reports: no symptoms Genitourinary: Reports: no symptoms Neurologic/Psychiatric: Reports: pre-existing deficit Endocrine: Reports: no symptoms Hematologic/Lymphatic: Reports: no symptoms Allergies: Coded Allergies: No Known Allergies (Verified Allergy, Mild, 01/23/09) All Systems: reviewed and negative except above Subjective ?hemoptysis last night. facial droop not any better. on steroids for possible bells palsy. Objective Last 24 Hour Vital Signs Date Time Temp Pulse Resp B/P (MAP) Pulse Ox O2 Delivery O2 Flow Rate FiO2 08/10/17 16:00 97.8 60 21 106/62 98 Room Air 97.8 08/10/17 15:30 63 08/10/17 12:00 97.5 73 20 123/73 96 Room Air 97.5 08/10/17 11:27 71 08/10/17 09:00 68 104/75 08/10/17 09:00 104/75 08/10/17 09:00 68 104/75 08/10/17 08:00 97.6 68 18 104/75 99 Room Air 97.6 08/10/17 07:50 71 08/10/17 04:00 98.1 69 20 111/73 95 Room Air 98.1 08/10/17 04:00 61 08/10/17 00:16 60 08/10/17 00:00 97.0 62 20 128/74 96 Room Air 97.0 Intake and Output 08/09/17 08/10/17 19:00 07:00 Intake Total 430 ml Output Total 1300 ml 700 ml Balance -870 ml -700 ml Intake Oral 430 ml Output Urine Total 1300 ml 700 ml # Voids 3 3 Height (Feet): 6 Height (Inches): 2.00 Weight (Pounds): 220 General Appearance: WD/WN, alert Neck: supple Cardiovascular: normal rate Respiratory/Chest: lungs clear, normal breath sounds Abdomen: normal bowel sounds, non tender, soft, no organomegaly Edema: no edema noted Arm (L), no edema noted Arm (R), no edema noted Leg (L), no edema noted Leg (R), no edema noted Pedal (L), no edema noted Pedal (R), no edema noted Generalized Neurologic: other - left facial droop BALDOMERO JURADO Aug 10, 2017 21:40
[2017-08-10] MEDS: Atorvastatin 20mg tab ORAL SCH (22:26)
[2017-08-11] VITALS: BP 97/66
[2017-08-11 04:00] VITALS: BP 102/70
--- NOTE | 2017-08-11 07:51 | General Progress Note ---
Assessment/Plan Problem List: (1) Hemoptysis ICD Codes: R04.2 - Hemoptysis SNOMED: 07279719 (2) Stroke ICD Codes: I63.9 - Cerebral infarction, unspecified SNOMED: 331210260 (3) acute onset left [place] pulsy. (4) COPD exacerbation ICD Codes: J44.1 - Chronic obstructive pulmonary disease with (acute) exacerbation SNOMED: 014753176 (5) Acute exacerbation of CHF (congestive heart failure) Status: stable, progressing Assessment/Plan steroids speech rx hold antiplt rx.xarelto D/w ent- no obvious source of bleeding on laryngoscopy pulm eval pending pain rx dc planning if no additional w/u needed steroid taper as outpt Subjective ROS Limited/Unobtainable: No Constitutional: Reports: malaise, weakness HEENT: Reports: no symptoms Cardiovascular: Reports: no symptoms Respiratory: Reports: cough Gastrointestinal/Abdominal: Reports: no symptoms Genitourinary: Reports: no symptoms Neurologic/Psychiatric: Reports: pre-existing deficit Endocrine: Reports: no symptoms Hematologic/Lymphatic: Reports: no symptoms Allergies: Coded Allergies: No Known Allergies (Verified Allergy, Mild, 01/23/09) All Systems: reviewed and negative except above Subjective no more hemoptysis. xarelto dcd night before lsat due to coughing/spitting up [place]. ct noted. Objective Last 24 Hour Vital Signs Date Time Temp Pulse Resp B/P (MAP) Pulse Ox O2 Delivery O2 Flow Rate FiO2 08/11/17 04:00 60 08/11/17 04:00 97.0 61 20 102/70 100 Room Air 97.0 08/11/17 00:00 97.0 64 20 97/66 97 Room Air 97.0 08/11/17 00:00 64 08/10/17 20:00 97.0 64 20 104/70 100 Room Air 97.0 08/10/17 19:19 64 08/10/17 16:00 97.8 60 21 106/62 98 Room Air 97.8 08/10/17 15:30 63 08/10/17 12:00 97.5 73 20 123/73 96 Room Air 97.5 08/10/17 11:27 71 08/10/17 09:00 68 104/75 08/10/17 09:00 104/75 08/10/17 09:00 68 104/75 08/10/17 08:00 97.6 68 18 104/75 99 Room Air 97.6 08/10/17 07:50 71 Intake and Output 08/10/17 08/11/17 19:00 07:00 Intake Total 600 ml Output Total 800 ml 1500 ml Balance -200 ml -1500 ml Intake Oral 600 ml Output Urine Total 800 ml 1500 ml # Voids 3 Height (Feet): 6 Height (Inches): 2.00 Weight (Pounds): 220 Objective General Appearance: WD/WN, alert Neck: supple Cardiovascular: normal rate Respiratory/Chest: lungs clear, normal breath sounds Abdomen: normal bowel sounds, non tender, soft, no organomegaly Edema: no edema noted Arm (L), no edema noted Arm (R), no edema noted Leg (L), no edema noted Leg (R), no edema noted Pedal (L), no edema noted Pedal (R), no edema noted Generalized Neurologic: other - left facial droop BALDOMERO JURADO Aug 11, 2017 07:51
[2017-08-11 08:00] VITALS: BP 106/65
--- NOTE | 2017-08-11 08:02 | Consultation ---
Consult Note Consult Note 81 year old patient presents with Acton Palsy. He has extensive past medical history and has noted hemoptysis. He presented to the office on the day of admission with complaints of drooping of the left face. He has persistent left facial droop and difficulty swallowing. He was seen by neuro and cleared for discharge. He has been drooling. he currently is doing well without distress. he is currently on anticoagulation and prednisone. no Asthma but possible COPD. no distress at present PAST MEDICAL HISTORY: thoracic aneurysm, status post repair, hypertension, hypertensive heart disease, history of paroxysmal atrial fibrillation, and DVT, history of pacemaker, COPD, history of degenerative disk disease, lumbar radiculopathy, and peripheral neuropathy. CURRENT MEDICATIONS: Reconciled and reviewed. ALLERGIES: None. FAMILY HISTORY: None. SOCIAL HISTORY: Negative for alcohol or drugs. The patient is a prior smoker. He is a [employer]. PHYSICAL EXAMINATION: 102/70 97.6 74 14 HEENT: There is a left facial droop. Pupils are equal, round, and reactive to light. Oropharynx clear without bleeding NECK: Supple. No jugular venous distention. No carotid bruits. HEART: Regular rate and rhythm. without MRG LUNGS: Clear. without rhonchi or wheeze ABDOMEN: Soft, nontender, and nondistended. EXTREMITIES: Without clubbing, cyanosis, or edema. Labs Test 08/08/17 19:00 White Blood Count 7.3 K/UL (4.8-10.8) Red Blood Count 4.02 M/UL (4.70-6.10) Hemoglobin 11.4 G/DL (14.2-18.0) Hematocrit 36.5 % (42.0-52.0) Mean Corpuscular Volume 91 FL (80-99) Mean Corpuscular Hemoglobin 28.4 PG (27.0-31.0) Mean Corpuscular Hemoglobin Concent 31.3 G/DL (32.0-36.0) Red Cell Distribution Width 15.5 % (11.6-14.8) Platelet Count 135 K/UL (150-450) Mean Platelet Volume 10.6 FL (6.5-10.1) Neutrophils (%) (Auto) 69.4 % (45.0-75.0) Lymphocytes (%) (Auto) 19.4 % (20.0-45.0) Monocytes (%) (Auto) 7.5 % (1.0-10.0) Eosinophils (%) (Auto) 2.8 % (0.0-3.0) Basophils (%) (Auto) 0.9 % (0.0-2.0) Sodium Level 142 MMOL/L (136-145) Potassium Level 4.0 MMOL/L (3.5-5.1) Chloride Level 105 MMOL/L (98-107) Carbon Dioxide Level 33 MMOL/L (21-32) Anion Gap 4 mmol/L (5-15) Blood Urea Nitrogen 11 mg/dL (7-18) Creatinine 1.2 MG/DL (0.55-1.30) Estimat Glomerular Filtration Rate mL/min (>60) Glucose Level 136 MG/DL (74-106) Calcium Level 9.9 MG/DL (8.5-10.1) Total Bilirubin 0.8 MG/DL (0.2-1.0) Aspartate Amino Transf (AST/SGOT) 13 U/L (15-37) Alanine Aminotransferase (ALT/SGPT) 13 U/L (12-78) Alkaline Phosphatase 60 U/L (46-116) Total Protein 7.5 G/DL (6.4-8.2) Albumin 3.4 G/DL (3.4-5.0) Globulin 4.1 g/dL Albumin/Globulin Ratio 0.8 (1.0-2.7) Triglycerides Level 19 MG/DL (30-150) Cholesterol Level 138 MG/DL (< 200) LDL Cholesterol 61 mg/dL (<100) HDL Cholesterol 79 MG/DL (40-60) Cholesterol/HDL Ratio 1.7 (3.3-4.4) PROBLEM LIST: 1. Lieberman's palsy. 2. History of thoracic aneurysm, status post repair. 3. Conduction system disease, status post pacemaker. 4. Hypertension. 5. COPD. 6. History of chronic lower back pain. 7. Peripheral neuropathy 8. Hemoptysis, likely due to anticoagulation and described nasal bleeding PLAN care noted ok to discharge consider CT chest after discharge monitor for change with anticoagulation would be happy to see as an outpatient for further evaluation impression, plan, and exam edited and reviewed in detail care discussed with CORNELIA RENE Aug 11, 2017 08:02
[2017-08-11] MEDS: Metoprolol Succinate XL 25mg tab ORAL SCH (09:00)
[2017-08-11] MEDS: Amiodarone 200mg tab ORAL SCH (09:00)
[2017-08-11] MEDS: Losartan 50mg tab ORAL SCH (09:00)
[2017-08-11] MEDS: Docusate 250mg cap ORAL SCH (09:12)
[2017-08-11] MEDS: Montelukast 10mg tablet ORAL SCH (09:12)
[2017-08-11] MEDS: Lyrica 50mg cap ORAL SCH (09:13)
[2017-08-11 12:00] VITALS: BP 90/56
[2017-08-11] MEDS ORDERED: Aspirin Baby 81mg ORAL SCH (13:00)
[2017-08-11] MEDS ORDERED: PREDNISONE10 M2 PO ×3 (13:03→13:05)
--- NOTE | 2017-08-11 21:00 | Operative Note - Dictated ---
DATE OF OPERATION: 08/10/2017 PROCEDURE: Fiberoptic laryngoscopy. SURGEON: Cornel Armas M.D. ANESTHESIA: None. INDICATION FOR PROCEDURE: Epistaxis and hemoptysis of unknown etiology. PREOPERATIVE DIAGNOSES: Epistaxis and hemoptysis of unknown etiology. POSTOPERATIVE DIAGNOSES: Epistaxis and hemoptysis of unknown etiology. FINDINGS: Basically normal exam. TECHNIQUE: The patient was prepped and draped in the usual manner. Scope placed both through the right and left nostrils to evaluate the nasal cavity and then going into the right nostril and further passed the soft palate to visualize the larynx. Scope was then removed. ESTIMATED BLOOD LOSS: Zero. COUNTS: None. DRAINS: None. The patient is stable before, throughout, and after the procedure. Please note, there was no bleeding during any of this procedure as well. Cornel Armas M.D. DR: PAVAN JOB#: [id number] CC: PETER
--- NOTE | 2017-08-11 21:30 | Consultation ---
DATE OF CONSULTATION: 08/11/2017 HEAD AND NECK SURGERY INITIAL CONSULTATION CONSULTING PHYSICIAN: Cornel Armas M.D. REQUESTING PHYSICIAN: Sumit Hallman M.D. INDICATION FOR CONSULTATION: This is an 81-year-old male who for months is complaining of spitting up blood. He has seen Dr. Day at the [facility], who did not find anything. He showed me some red-stained mucus he coughed up in the morning that he saved. PAST MEDICAL HISTORY: His past medical history through the patient and the records is significant for thoracic aneurysm repair, pacemaker, paroxysmal atrial fibrillation, COPD, degenerative disk disease, lumbar radiculopathy, and peripheral neuropathy. He was a smoker in the past, but not for many years. He is [employer] and has negative history for alcohol and drugs. He was admitted to the hospital on 08/08/2017 with left facial droop with consideration of Lieberman palsy, stroke, cerebrovascular accident. He did have head CT a day ago, which showed chronic age-related changes, but no acute disease. He also had a CT of his neck, which was done yesterday on my recommendation, mild sinus disease, what I was looking for was any vascular malformations, there were none found. MEDICATIONS: His medications in the hospital include prednisone, Pollock, Protonix, Xarelto, Cordarone, Lasix, Cozaar, Toprol, Proscar, Singulair, Restoril, Lipitor, and Colace. PHYSICAL EXAMINATION: VITAL SIGNS: Height 187.96 cm, weight 99.79 kg, and BMI 28.2 kg/m2. GENERAL: He is conversant, alert, awake, and stable. HEENT: Mouth is normal except he is missing many teeth. Fiberoptic exam, his nose did not show any site of bleeding. Possibly he had a few areas of hypovascularity, but I did not see any area that was bleeding. Down to his vocal cords, I did not see any area to explain the bleed. ASSESSMENT: He may be coughing hard and popping blood vessels back in his nose, but not evident. It is not significant amount of blood. He coughs very hard and certainly he has as issue and needs to be addressed, now that we ruled out any significant issues in his head and neck, both myself and Dr. Day a few months ago. He does have history of COPD. PLAN: The CT scan was done after my conversation with Dr. Hallman and noted above. I did see the patient yesterday and just did not complete the dictation, so doing that today. Thank you very much for asking my opinion in the care and treatment of this patient. Cornel Armas M.D. DR: DIEGO JOB#: [id number] CC: PETER
--- NOTE | 2017-08-12 08:52 | Diagnostic Imaging Report ---
APPROVED REPORT CPT Code: 66130 Vascular Symptoms CVA/TIA: Doppler Spectral Velocity Analysis RightLeft RIGHT SIDE: CCA - Imaging reveals no significant plaque in the common carotid artery. ICA arteries. The Doppler signal indicates the degree of stenosis is minimal (05- 10%) in the internal carotid, and in the external carotid arteries. VERTEBRAL - The vertebral artery is patent, without evidence of stenosis or steal. LEFT SIDE: CCA - Imaging reveals no significant plaque within the extracranial carotid arteries. The Doppler spectral flow analysis is within normal limits throughout the extracranial carotid arteries. VERTEBRAL - The vertebral artery is patent, without evidence of stenosis or steal.
--- NOTE | 2017-08-12 11:20 | Discharge Summary ---
Discharge Summary Discharge Summary Discharge Summary DATE OF ADMISSION: 08/08/2017 DATE OF DISCHARGE: 08/11/2017 CONSULTANTS: 1. Dr. Yvan Encarnacion 2. Dr. Adriano Castañeda 3. Dr. Cornel Armas ATTENDING: Dr. Sumit Hallman BRIEF HOSPITAL COURSE: Patient is an 81-year-old male who has extensive medical history, including thoracic aneurysm, status post repair, hypertension, hypertensive heart disease , history of paroxysmal atrial fibrillation, and DVT. He presented to the office on the day of admission with complaints of drooping of the left face. He had left facial droop and noted difficulty swallowing for 2 days. He denied any focal weakness or numbness. He denied any headaches or visual changes. He was then directly admitted to the hospital for concerns of a possible stroke. Xarelto was placed on hold. He underwent neuro evaluation with Dr. Clark. Head CT showed no definite mass or abnormality to explain difficulty swallowing. He had no strong evidence of acute stroke, but has discontinued peripheral left facial palsy. He was given trial of steroids. He also complained of hemoptysis. 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 He had a neck CT that showed no definite mass or abnormality to explain difficulty swallowing. There was no vascular malformations found. On 08/11/2017, he underwent fiberoptic laryngoscopy and showed epistaxis and hemoptysis of unknown etiology. He was eventually cleared for discharge home, to follow-up with Dr. Ricketts for an outpatient chest CT. FINAL DIAGNOSES: 1. Hemoptysis 2. Acute onset of left Lieberman's palsy 3. Generalized ischemic cerebrovascular disease 4. Hypertensive cardiomyopathy 5. Paroxysmal atrial fibrillation 6. Permanent pacemaker 7. Cerebrovascular disease with prior lacunar infarct 8. COPD DISPOSITION: Patient was discharged home. DISCHARGE MEDICATIONS: Refer to Discharge Medication List. Continue with tapering doses of steroids. I have been assigned to dictate discharge summary on this account, and I was not involved in the patient's management. Paty Lowry NP Aug 12, 2017 11:20
--- NOTE | 2017-08-13 03:45 | Progress Note ---
DATE: 08/10/2017 CARDIOLOGY PROGRESS NOTE Late entry for 08/10/2017. SUBJECTIVE: The patient was seen and evaluated. Case was discussed with Dr. Armas. He is status post laryngoscopy due to hemoptysis. No acute findings noted. CT scan of the neck is planned. The patient has no chest pain. His left facial weakness has decreased and there is no new focal weakness noted. OBJECTIVE: VITAL SIGNS: Blood pressure 106/62, pulse 60, and respirations 21. Afebrile. HEENT: Facial droop on the left. NECK: Supple. LUNGS: Clear. CARDIAC: Regular. Normal S1, S2 with a fourth heart sound and a 1/4 diastolic murmur. ABDOMEN: Soft. EXTREMITIES: No edema. IMPRESSION: 1. Paroxysmal atrial fibrillation, suppressed with amiodarone. 2. History of thoracic aortic repair. 3. Chronic obstructive pulmonary disease. 4. Chronic bronchitis. 5. Hemoptysis due to anticoagulation. 6. Lieberman's palsy. 7. Acute on chronic diastolic congestive heart failure. 8. Hypertensive cardiomyopathy. PLAN: 1. Discontinue rivaroxaban. 2. Resume aspirin. 3. Continue amiodarone, bronchodilators, steroids, and respiratory hygiene. 4. Titration of antihypertensives. 5. Maintenance dose diuretic. Yvan Encarnacion M.D. : AIYANA JOB#: [id number] CC:
--- NOTE | 2017-08-13 05:30 | Progress Note ---
DATE: 08/11/2017 CARDIOLOGY PROGRESS NOTE Late entry, 08/11/2017. SUBJECTIVE: No more hemoptysis. The patient is off anticoagulation. Anti-platelet therapy with aspirin has resumed. ENT evaluation negative. CT scan of the neck with no abnormalities. OBJECTIVE: VITAL SIGNS: Blood pressure 102/70, pulse 61, and respirations 20. LUNGS: Coarse breath sounds. Scattered rhonchi. No wheezing. HEART: Regular rhythm and rate. Normal S1, S2. A 1/4 diastolic decrescendo. ABDOMEN: Soft. EXTREMITIES: No edema. NEUROLOGIC: Left facial weakness and droop has improved. IMPRESSION: 1. Lieberman's palsy. 2. No acute cerebrovascular accident. 3. History of thoracic aortic aneurysm repair. 4. Paroxysmal atrial fibrillation, suppressed with amiodarone. 5. Hemoptysis resolved, likely due to COPD, bronchitis, and coagulopathy while on anticoagulants. 6. Hypertensive heart disease with stable blood pressure control. PLAN: 1. Steroid taper as outpatient as facial droop recovers. 2. Continue anti-platelet therapy. 3. No anticoagulation. 4. Respiratory bronchodilator therapy. 5. Maintain current antihypertensives with hold parameters based on outpatient monitoring. Yvan Encarnacion M.D. DR: AIYANA JOB#: [id number] CC:
--- NOTE | 2017-08-16 13:34 | Diagnostic Imaging Report ---
Indications: Dysphagia Technique: Patient ingested multiple substances under the supervision of speech pathology. Video fluoroscopic recording performed. Total fluoroscopy time 201 seconds. Total dose area product 0.90558 mGycm2 Comparison: none Findings: Supraglottic laryngeal penetration is observed with ingestion of thin liquid barium. Penetration of nectar thick liquid barium also demonstrated mild early pooling of honey thick liquid barium, no significant residual. No issues with barium puree Impression: Positive for penetration of thin liquid barium and nectar thick liquid barium Please refer to speech pathology report for more detailed analysis
== END 2017-08-11 14:55 | disposition home or self-care (01) | DRG 73 ==
LOC: OBSVTOIN 13:42 → 2E 13:42
PROC: 0CJS8ZZ Inspection of Larynx, Via Natural or Artificial Opening Endoscopic (ICD-10-PCS; principal; 2017-08-10)
DX: G51.0 Bell's palsy (principal); I50.33 Acute on chronic diastolic (congestive) heart failure; R04.2 Hemoptysis; D68.32 Hemorrhagic disorder due to extrinsic circulating anticoagulants; I48.0 Paroxysmal atrial fibrillation; J44.9 Chronic obstructive pulmonary disease, unspecified; Z95.0 Presence of cardiac pacemaker; G62.9 Polyneuropathy, unspecified; M51.16 Intervertebral disc disorders with radiculopathy, lumbar region; Z79.01 Long term (current) use of anticoagulants; Z86.73 Personal history of transient ischemic attack (TIA), and cerebral infarction without residual deficits; N40.0 Benign prostatic hyperplasia without lower urinary tract symptoms; E03.9 Hypothyroidism, unspecified; Z87.891 Personal history of nicotine dependence; J42 Unspecified chronic bronchitis; T45.515A Adverse effect of anticoagulants, initial encounter; I11.0 Hypertensive heart disease with heart failure
CPT/HCPCS: 36415; 70450; 70490; 74230; 80053; 80061; 85025; 93005; 93880

== ENCOUNTER 2017-12-14 15:25 | Outpatient (CLI) | payer MEDICARE, OTHER ==
[~2017-12-14 15:25] MED LIST changes: +FINASTERIDE5 MG PO; +FUROSEMIDE20 M1 PO; +LOSARTAN POTAS100 MG PO; +METOPROLOL SUCC25 MG PO; +PREDNISONE10 M2 PO; +VITAMIN D22000 UNIT PO
--- NOTE | 2017-12-14 16:40 | Diagnostic Imaging Report ---
Indication: Chronic back pain Technique: Spiral acquisitions obtained through the thoracic spine. No IV contrast utilized. Multiplanar reconstructions were generated. Total dose length product 1184.55 mGycm. CTDIvol(s) 29.41 mGy. Dose reduction achieved using automated exposure control Comparison: none Findings: The bony alignment is normal. Vertebral body heights are preserved. There is degenerative disc narrowing of the lower cervical spine. There are degenerative proliferative changes of the lower thoracic and upper lumbar spine. There is degenerative neural foraminal narrowing at C7-T1 bilaterally. At the thoracic levels, no significant disc bulge or protrusion, spinal stenosis, or neural foraminal stenosis. The included extraspinal soft tissues demonstrate a very large cyst coming off of the right kidney but this is incompletely included and therefore cannot be measured. There is evidence of a cardiac pacemaker. The thoracic disc spaces are preserved. No acute fractures. No dislocations. Impression: No acute bony trauma Mild degenerative changes, as described No evidence of significant thoracic neural impingement. Incidental finding large right renal cyst, incompletely visualized The CT scanner at [facility] is accredited by the [employer] and the scans are performed using protocols designed to limit radiation exposure to as low as reasonably achievable to attain images of sufficient resolution adequate for diagnostic evaluation.
--- NOTE | 2017-12-14 16:53 | Diagnostic Imaging Report ---
Indications: Chronic back pain Technique: Spiral acquisitions obtained through the lumbar spine. Multiplanar reconstructions were generated. No IV contrast utilized. Total dose length product 563.77 mGycm. CTDIvol(s) 19.3 mGy. Dose reduction achieved using automated exposure control Comparison: none Findings: Bony alignment is normal. Vertebral body heights are preserved. There is [id number] apposition of the L3, L4, L5, and S1 spinous processes. No acute fractures. No dislocations. At T12-L1, there is vacuum formation, indicating early degenerative change, but no significant disc narrowing. There is bilateral facet arthrosis. No significant disc bulge or protrusion, spinal stenosis, or neural foraminal stenosis. At L1-2, there is circumferential annular bulge. This results in mild to moderate narrowing of the spinal canal. There is bilateral facet arthrosis, resulting in mild narrowing of the bilateral neural foramina. The disc space is preserved, although there is vacuum phenomenon indicating early degenerative change. At L2-3, circumferential annular bulge results in mild narrowing of the spinal canal and mild compromise of the bilateral neural foramina. There is minimal bilateral facet arthrosis. There is mild degenerative disc narrowing At L3-4, there is vacuum phenomenon within the disc but no significant disc narrowing. There are degenerative proliferative changes. There is minimal bilateral facet arthrosis. There is mild circumferential annular bulge, but no definite significant spinal stenosis or neural foraminal narrowing. At L4-5, there is mild degenerative disc narrowing. There is considerable endplate irregularity, on both sides of the disc. There is minimal bilateral facet arthrosis. There is minimal circumferential annular bulge which does not significantly impinge upon the spinal canal. There is slight left paracentral evidence of foraminal disc protrusion, which may impinge slightly on the lateral recess. No significant neural foraminal compromise is evident. At L5-S1, there is mild degenerative disc narrowing. There is considerable irregularity of both endplates, with numerous subchondral cysts and subchondral sclerosis. Vacuum formation indicates degenerative change and likely absence of infection. There is bilateral facet arthrosis, resulting in mild bilateral neural foraminal stenosis. No significant disc bulge or protrusion or spinal stenosis. There are degenerative changes of the bilateral sacroiliac joints, with subchondral sclerosis and subchondral cysts on the iliac side bilaterally, and vacuum formation and joint space narrowing on the left, Included extraspinal soft tissues demonstrate colonic diverticulosis. There are at least 2 right renal cysts, incompletely included, that coming off of the upper pole being quite large. Impression: No acute bony trauma Degenerative changes, as detailed on a level by level basis above. Incidental finding of right renal cysts The CT scanner at [facility] is accredited by the [employer] and the scans are performed using protocols designed to limit radiation exposure to as low as reasonably achievable to attain images of sufficient resolution adequate for diagnostic evaluation.
== END 2017-12-14 17:25 | disposition home or self-care (01) ==
LOC: CAT 15:25
DX: M51.36 Other intervertebral disc degeneration, lumbar region (principal); N20.0 Calculus of kidney; K57.90 Diverticulosis of intestine, part unspecified, without perforation or abscess without bleeding
CPT/HCPCS: 72125; 72128; 72131

== ENCOUNTER 2018-03-07 15:00 | Outpatient (RCR) | payer MEDICARE, OTHER | END 2018-03-15 | disposition home or self-care (01) | LOC: PTY 15:00 | DX: R26.89 Other abnormalities of gait and mobility (principal); M54.17 Radiculopathy, lumbosacral region; M24.561 Contracture, right knee; I48.0 Paroxysmal atrial fibrillation; Z95.0 Presence of cardiac pacemaker; J44.9 Chronic obstructive pulmonary disease, unspecified; G62.9 Polyneuropathy, unspecified | CPT/HCPCS: 97110; 97116; 97162; G8978; G8979 ==

== ENCOUNTER 2018-03-22 12:55 | Outpatient (RCR) | payer MEDICARE, OTHER | END 2018-04-14 | disposition home or self-care (01) | LOC: PTY 12:55 | DX: R26.89 Other abnormalities of gait and mobility (principal); M54.16 Radiculopathy, lumbar region; M24.561 Contracture, right knee; M24.551 Contracture, right hip; G51.0 Bell's palsy; I48.91 Unspecified atrial fibrillation; J44.9 Chronic obstructive pulmonary disease, unspecified; Z95.0 Presence of cardiac pacemaker ==

== ENCOUNTER 2018-05-27 15:21 | Inpatient (IN) | payer MEDICARE, OTHER ==
[~2018-05-27] VITALS: Ht 188 cm; Wt 101.4 kg
[2018-05-27 15:35] VITALS: BP 166/66
--- NOTE | 2018-05-27 15:35 | NUR ---
ED Nurse Note: PT WALKED IN TO ER TODAY FROM HOME. AOX4. PT C/O SOB X 2-3 DAYS. LUNG SOUNDS CLEAR IN ALL LOBES. RR22 AT 90% O2 SAT ON 2L O2 VIA NC. PT HAS HX OF COPD. PT APPEARS SOB WITH EXERTION BUT NO DISTRESS SEEN AT REST.
[2018-05-27] MEDS ORDERED: Sodium Chloride 500ML 500 ML IV ONE (15:53)
[2018-05-27] MEDS ORDERED: Acetaminophen 500mg (ES) tab ORAL ONE (16:00)
[2018-05-27] MEDS ORDERED: Solu-MEDROL 125mg Inj IVP ONE (16:00)
--- NOTE | 2018-05-27 16:00 | NUR ---
ED Nurse Note: XRAY AT BEDSIDE.
[2018-05-27] MEDS: Ipratropium 0.02% Inh Soln 2.5ml UD HHN SCH ×3 (16:11→16:43)
[2018-05-27] MEDS: Albuterol ud Inhalation HHN SCH ×3 (16:14→16:45)
[2018-05-27 16:29] LABS: HEMATOCRIT 34.2 % (42.0-52.0); HEMOGLOBIN 10.4 G/DL (14.2-18.0); MEAN CORPUSCULAR VOLUME 84 FL (80-99); PLATELET COUNT 166 K/UL (150-450); RED BLOOD COUNT 4.05 M/UL (4.70-6.10); RED CELL DISTRIBUTION WIDTH 17.2 % (11.6-14.8); WHITE BLOOD COUNT 15.6 K/UL (4.8-10.8)
--- NOTE | 2018-05-27 16:30 | NUR ---
ED Nurse Note: PT STATES HE IS UNABLE TO GIVE URINE SAMPLE AT THIS TIME. PT REFUSES STRAIGHT CATHETER.
[2018-05-27] MEDS ORDERED: ASPIRIN EC325 MG ORAL (16:31)
[2018-05-27] MEDS ORDERED: TAMSULOSIN HCL0.4 MG ORAL (16:31)
[2018-05-27] MEDS ORDERED: ZOLPIDEM TARTRA10 MG ORAL (16:31)
[2018-05-27 16:37] LABS: ANION GAP 7 mmol/L (5-15); BLOOD UREA NITROGEN 16 mg/dL (7-18); CALCIUM 10.8 MG/DL (8.5-10.1); CARBON DIOXIDE 30 MMOL/L (21-32); CHLORIDE 102 MMOL/L (98-107); CREATININE 1.4 MG/DL (0.55-1.30); SODIUM 139 MMOL/L (136-145)
--- NOTE | 2018-05-27 16:37 | Diagnostic Imaging Report ---
EXAM: XR Chest, 1 View CLINICAL HISTORY: Shortness of breath TECHNIQUE: Frontal view of the chest. COMPARISON: Chest x-ray dated 03/09/17 FINDINGS: Lungs: Patchy opacities in bilateral lower lungs. Pleural space: Unremarkable. The costophrenic angles are sharp. No visible pneumothorax. Heart: Status post heart valve replacement. Borderline enlarged heart, however cardiac silhouette is magnified by portable film technique. Mediastinum: Unremarkable. Bones/joints: Status post median sternotomy. Sternal wires appear intact. Tubes, lines and devices: Cardiac pacer in the left chest wall with the lead tips in the right atrium and right ventricle regions. EKG leads overlie the thorax. IMPRESSION: Patchy opacities in bilateral lower lungs, which may represent pneumonia versus atelectasis.
[2018-05-27] MEDS ORDERED: Piperacillin/Tazobactam 3.375 GM in NS 110 ML IVPB ONE (16:45)
[2018-05-27] MEDS ORDERED: Azithromycin 500 MG in NS 275 ML IV ONE (16:45)
[2018-05-27 16:50] LABS: ALANINE AMINOTRANSFERASE 16 U/L (12-78); ALBUMIN 2.8 G/DL (3.4-5.0); ALBUMIN/GLOBULIN RATIO 0.6 (1.0-2.7); ALKALINE PHOSPHATASE 57 U/L (46-116); ASPARTATE AMINO TRANSFERASE 20 U/L (15-37); BILIRUBIN,TOTAL 1.4 MG/DL (0.2-1.0); CKMB < 0.5 NG/ML (0.0-3.6); CREATINE KINASE 153 U/L (26-308)
[2018-05-27 16:52] LABS: BILIRUBIN,DIRECT 0.5 MG/DL (0.0-0.3)
--- NOTE | 2018-05-27 17:00 | NUR ---
ED Nurse Note: PT REMINDED AGAIN THAT URINE SAMPLE IS NEEDED. PT STATES HE IS UNABLE AT THIS TIME AND CONTINUES TO REFUSE STRAIGHT CATHETER.
--- NOTE | 2018-05-27 17:12 | NUR ---
ED Nurse Note: second latic acid specimen sent down to the lab.
[2018-05-27 17:20] VITALS: BP 99/47
--- NOTE | 2018-05-27 17:50 | NUR ---
ED Nurse Note: TELE UNIT CALLED FOR PT TRANSFER. REPORT GIVEN TO JENNIFER OSORIO. PER BLEACHING SUPERVISOR, HOLD PT IN ER UNTIL 1615. WILL CONTINUE TO MONITOR PT UNTIL THAT TIME AND THEN TRANSFER UP TO TELE UNIT.
--- NOTE | 2018-05-27 18:00 | Emergency Room Report ---
History of Present Illness General Chief Complaint: Dyspnea/Respdistress Source: Patient, Medical Record Present Illness HPI 82-year-old M presents to ED for evaluation. Coming from home with shortness of breath 3 days. Hypoxic in triage. History of COPD. Notes cough is productive with yellowish phlegm. Has temperature of 101.5. Denies chest pain. Sick contacts or recent travel. No other aggravating relieving factors. Denies any other associated symptoms Allergies: Coded Allergies: No Known Allergies (Verified , 01/23/09) Patient History Past Medical History: HTN, COPD Past Surgical History: pacemaker Pertinent Family History: none Social History: Denies: smoking, alcohol use, drug use Immunizations: UTD Reviewed Nursing Documentation: PMH: Agreed; PSxH: Agreed Nursing Documentation-PMH Hx Hypertension: Yes Hx Pacemaker: Yes - L chest pacemaker Hx Asthma: Yes Hx COPD: Yes Hx Diabetes: No Hx Cancer: No Hx Gastrointestinal Problems: Yes - constipation Hx Dialysis: No Hx Neurological Problems: Yes - Hx Cerebrovascular Accident: No Hx Seizures: No Hx Peripheral Neuropathy: Yes Hx Memory Loss: Yes Hx Dizziness: Yes Hx Headaches: Yes Hx Weakness: Yes Review of Systems All Other Systems: negative except mentioned in HPI Physical Exam Vital Signs Date Time Temp Pulse Resp B/P (MAP) Pulse Ox O2 Delivery O2 Flow Rate FiO2 05/27/18 15:34 101.5 83 15 122/71 90 Nasal Cannula 2.0 05/27/18 16:16 28 Sp02 EP Interpretation: reviewed, normal General Appearance: no apparent distress, alert, GCS 15, non-toxic Head: normocephalic Eyes: bilateral eye normal inspection, bilateral eye PERRL ENT: normal ENT inspection Neck: normal inspection Respiratory: chest non-tender, lungs clear, decreased breath sounds, crackles, speaking full sentences, wheezing Cardiovascular #1: regular rate, rhythm, no edema Gastrointestinal: normal inspection Rectal: deferred Genitourinary: no CVA tenderness Musculoskeletal: normal inspection Neurologic: alert, oriented x3, responsive, motor strength/tone normal, sensory intact, speech normal Psychiatric: normal inspection Skin: normal inspection Lymphatic: normal inspection Procedures Critical Care Time Critical Care Time i. I feel this is a highly complex case requiring extensive working including EKG/Rhythm strip, Xray/CT/US, Blood/urine lab work, repeat exams while in ED, and administration of strong opiates/narcotics for pain control, admission to hospital or close patient follow up. Total time: 40 min bedside evaluation and treatment excludes procedures (EKG). Reason for critical care: hypoxic, pneumonia, elevated troponin Possible complications: hypotension, hypertension, NC, shock, arrhythmias, metabolic acidosis, end organ damage, respiratory failure. Interventions: labs, EKG, CXR, nebs, antibiotics, aspirin, Lasix, discussion with cardiology Course: Patient presents with shortness of breath, hypoxic, fever. History of COPD. Breathing treatments started. Chest x-ray shows bilateral infiltrates. Lactic elevated. Troponin elevated. BNP greater than 4000. No chest pain. Given aspirin. Given Lasix. Given broad-spectrum antibiotics. Discussed with cardiology Consultations: nursing staff, EMS, family Performed by: Dr Blanchard Tolerated well condition = serious j. because of unstable vital signs this patient had a condition that could potentially threaten life or limb. I feel this is a critical patient who required my full attention while patient was considered critical. Total Critical Care Time excluding procedures was greater than 35 minutes Medical Decision Making Diagnostic Impression: Primary Impression: Pneumonia Qualified Codes: J18.1 - Lobar pneumonia, unspecified organism Additional Impressions: COPD (chronic obstructive pulmonary disease) Qualified Codes: J44.9 - Chronic obstructive pulmonary disease, unspecified Sepsis Qualified Codes: A41.9 - Sepsis, unspecified organism Elevated troponin CHF (congestive heart failure) Qualified Codes: I50.9 - Heart failure, unspecified ER Course Hospital Course 82-year-old M presenting to ED with SOB, fever, hypoxic Differential diagnoses include: Pneumonia, CHF exacerbation, pneumothorax, fluid overload Clinical course Patient placed on stretcher. On monitoring manager with hypoxia on room air. After initial history and physical, I ordered nebulizer treatments. I ordered labs, IV fluids, EKG, chest x-ray, blood cultures, UA. Labs - leukocytosis noted, hemoglobin/hematocrit stable, Cr 1.4, lactic 2.6, trop 0.115, BNP > 4000 CXR - bilateral infiltrates Given Tylenol. Given broad-spectrum antibiotics. Given Lasix. 30 mL per KG fluid bolus withheld because of fluid overload due to CHF Case discussed with Dr. Hallman/Alysha and he agreed to the patient to his service for further care and support I feel this is a highly complex case requiring extensive working including EKG/ Rhythm strip, Xray/CT/US, Blood/urine lab work, repeat exams while in ED, and administration of strong opiates/narcotics for pain control, admission to hospital or close patient follow up. Diagnosis - pneumonia, COPD, sepsis, elevated troponin, CHF Patient admitted to telemetry in serious condition Labs Test 05/27/18 16:10 05/27/18 17:00 White Blood Count 15.6 K/UL (4.8-10.8) Red Blood Count 4.05 M/UL (4.70-6.10) Hemoglobin 10.4 G/DL (14.2-18.0) Hematocrit 34.2 % (42.0-52.0) Mean Corpuscular Volume 84 FL (80-99) Mean Corpuscular Hemoglobin 25.6 PG (27.0-31.0) Mean Corpuscular Hemoglobin Concent 30.4 G/DL (32.0-36.0) Red Cell Distribution Width 17.2 % (11.6-14.8) Platelet Count 166 K/UL (150-450) Mean Platelet Volume 6.5 FL (6.5-10.1) Neutrophils (%) (Auto) % (45.0-75.0) Lymphocytes (%) (Auto) % (20.0-45.0) Monocytes (%) (Auto) % (1.0-10.0) Eosinophils (%) (Auto) % (0.0-3.0) Basophils (%) (Auto) % (0.0-2.0) Differential Total Cells Counted 100 Neutrophils % (Manual) 90 % (45-75) Lymphocytes % (Manual) 3 % (20-45) Monocytes % (Manual) 7 % (1-10) Eosinophils % (Manual) 0 % (0-3) Basophils % (Manual) 0 % (0-2) Band Neutrophils 0 % (0-8) Platelet Estimate Adequate Platelet Morphology Normal Polychromasia 1+ Hypochromasia 1+ Anisocytosis 1+ Sodium Level 139 MMOL/L (136-145) Potassium Level 4.0 MMOL/L (3.5-5.1) Chloride Level 102 MMOL/L (98-107) Carbon Dioxide Level 30 MMOL/L (21-32) Anion Gap 7 mmol/L (5-15) Blood Urea Nitrogen 16 mg/dL (7-18) Creatinine 1.4 MG/DL (0.55-1.30) Estimat Glomerular Filtration Rate mL/min (>60) Glucose Level 138 MG/DL (74-106) Lactic Acid Level 2.60 mmol/L (0.4-2.0) 2.10 mmol/L (0.66-2.22) Calcium Level 10.8 MG/DL (8.5-10.1) Total Bilirubin 1.4 MG/DL (0.2-1.0) Direct Bilirubin 0.5 MG/DL (0.0-0.3) Aspartate Amino Transf (AST/SGOT) 20 U/L (15-37) Alanine Aminotransferase (ALT/SGPT) 16 U/L (12-78) Alkaline Phosphatase 57 U/L (46-116) Total Creatine Kinase 153 U/L (26-308) Creatine Kinase MB < 0.5 NG/ML (0.0-3.6) Creatine Kinase MB Relative Index 0.3 Troponin I 0.115 ng/mL (0.000-0.056) Pro-B-Type Natriuretic Peptide 4238 pg/mL (0-125) Total Protein 7.8 G/DL (6.4-8.2) Albumin 2.8 G/DL (3.4-5.0) Globulin 5.0 g/dL Albumin/Globulin Ratio 0.6 (1.0-2.7) EKG Diagnostic Results Rate: normal Rhythm: other - junctional ST Segments: no acute changes ASA given to the pt in ED: Yes Rhythm Strip Diag. Results EP Interpretation: yes Rhythm: no PVC's, no ectopy Chest X-Ray Diagnostic Results Chest X-Ray Diagnostic Results : Chest X-Ray Ordered: Yes # of Views/Limited/Complete: 1 View Indication: Shortness of Breath EP Interpretation: Yes Interpretation: no pneumothorax, other - bilateral opacities, infiltrates Impression: Other - CHF/PNA Electronically Signed by: Electronically signed by Shay Blanchard MD Last Vital Signs Date Time Temp Pulse Resp B/P (MAP) Pulse Ox O2 Delivery O2 Flow Rate FiO2 05/27/18 17:20 102.4 89 22 99/47 95 Nasal Cannula 2.0 05/27/18 17:18 28 Status: improved Disposition: ADMITTED INPATIENT Condition: Serious Referrals: Yvan Encarnacion MD (PCP) Shay Blanchard MD May 27, 2018 18:00
--- NOTE | 2018-05-27 19:00 | NUR ---
NURSE NOTES: report received from Damián RODRIGUEZ. patient a/o x 4. no c/o pain and SOB at this time. call light and frequent used objects left with in reach. bed at lowest position rails up x 2 for safety reasons.all belonging reviewed per protocol. patient placed on terminal superintendent. iv intact and patent. report given to Rob RODRIGUEZ.
--- NOTE | 2018-05-27 19:05 | NUR ---
NURSE NOTES: cont.. Needs and wants anticipated and attended, will continue plan of care and monitor for any changes noted
--- NOTE | 2018-05-27 19:05 | NUR ---
NURSE NOTES: Received report from Rene Langley RN. Patient in bed AAO x4 with HOB elevated at semi fowlers, no complaint of acute pain at this time, kept clean, dry, and comfortable in bed. IV line intact and patent. Safety precaution in place; siderails x3 up, call light within reach, bed in lowest position, brakes and alarm on at all times. nurse monitoring in place per protocol. Needs and wants anticipatye
[2018-05-27 20:00] VITALS: BP 91/56
[2018-05-27] MEDS ORDERED: Milk of Magnesia 30ml Ud ORAL PRN (20:00)
[2018-05-27] MEDS: Tamsulosin 0.4mg cap ORAL SCH (21:16)
[2018-05-27] MEDS: Solu-MEDROL 125mg Inj IVP SCH (21:16)
[2018-05-27] MEDS: Piperacillin/Tazobactam 3.375 GM in D5W 110 ML IVPB SCH (21:56)
[2018-05-28] VITALS: BP 96/62
[2018-05-28] MEDS: Albuterol/Ipratropium 3ml neb HHN SCH ×7 (00:59→22:46)
[2018-05-28] MEDS ORDERED: Vancomycin 1.5 GM/D5W 250ML IVPB ONE (02:00)
[2018-05-28 04:00] VITALS: BP 103/60
--- NOTE | 2018-05-28 04:30 | Consultation ---
DATE OF CONSULTATION: 05/27/2018 CARDIOLOGY CONSULTATION CONSULTING PHYSICIAN: Yvan Encarnacion M.D. REQUESTING PHYSICIAN: Sumit Hallman M.D. REASON FOR CONSULTATION: Cardiovascular management in the setting of hypoxia and respiratory distress with underlying cardiomyopathy. HISTORY OF PRESENT ILLNESS: This is an 82-year-old male with a known history of COPD, has had progressive shortness of breath and congestion for the past few days. In the emergency room, he was noted to be hypoxic, febrile, and had leukocytosis. He describes cough with yellow sputum production, but no chest pain or leg swelling. PAST MEDICAL HISTORY: Notable for: 1. Permanent pacemaker. 2. History of aortic aneurysm repair. 3. Non-flow limiting coronary atherosclerosis. 4. Hypertensive heart disease. 5. Chronic diastolic congestive heart failure. 6. Paroxysmal atrial fibrillation. 7. Diverticulosis. 8. Degenerative disk disease with lumbosacral radiculopathy. 9. Cerebrovascular atherosclerosis. 10. Hyperlipidemia. ALLERGIES: None. FAMILY HISTORY: Noncontributory. SOCIAL HISTORY: Former smoker. No alcohol or substance abuse. 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 MEDICATIONS: Prior to admission, reviewed and reconciled. REVIEW OF SYSTEMS: He has had fevers. No chills. There is a history of cataract surgery and some hearing loss. He has COPD. He has been on steroids in the past intermittently, but not chronically. There is no history of abnormal blood clotting. His permanent pacemaker was interrogated within the last six months and functioning appropriately. He is on amiodarone for atrial fibrillation. There is no history of flow-limiting coronary disease. He had a repair of a thoracic aortic aneurysm several years ago. There is no history of diabetes or thyroid impairment. There is no history of prostate cancer or elevated PSA. He does have some prostatic hypertrophy and has had episodes of difficulty voiding with urinary infection. He has been on anti-lipid therapy. There is no history of seizure or stroke. PHYSICAL EXAMINATION: GENERAL: Well developed and well nourished, in mild distress. VITAL SIGNS: Temperature 101.5, blood pressure 122/71, heart rate 83, respiratory rate 15, and oxygen saturation on 2 L 90%. Male pattern balding. HEENT: Conjunctivae are pink. Sclerae are anicteric. Arcus senilis. Oropharynx clear. Mucous membranes moist. No exudate. No thrush. NECK: Supple. No accessory muscle use. There is no thyromegaly or adenopathy. LUNGS: Coarse breath sounds. Rhonchi and rales at the right. CARDIAC: Regular rhythm and rate. Normal S1 and S2. There is a 1/6 systolic murmur at the apex. Chest wall with permanent pacemaker on the left. Site is clean and dry. ABDOMEN: Soft and nontender. EXTREMITIES: Good pulses. Trace edema. He ambulates with a cane. LABORATORY DATA: White count 15.6 and hemoglobin 10.4. Sodium 139, potassium 4, bicarbonate 30, BUN 16, and creatinine 1.4. Lactic acid 2.6. Glucose 138. Troponin 0.115. Natriuretic peptide 4238. Albumin 2.8. Chest x-ray revealed bilateral infiltrates and pulmonary venous congestion. EKG, atrial pacing and minimal voltage for left ventricular hypertrophy with repolarization changes. IMPRESSION: 1. Healthcare-acquired pneumonia. 2. Chronic obstructive pulmonary disease exacerbation. 3. Lactic acidosis. 4. Hypoxia. 5. Acute on chronic diastolic congestive heart failure. 6. Acute myocardial ischemia. 7. Paroxysmal atrial fibrillation, on amiodarone therapy. 8. Moderate protein-calorie malnutrition. PLAN: 1. Cardiac monitoring. 2. Nasal oxygen. 3. Inhaled bronchodilators. 4. Empiric antibiotics. 5. Follow up cultures of the blood and sputum. 6. Hydration with caution. 7. Hold additional diuresis for now. 8. Serial lactic acid levels. 9. DVT prophylaxis. 10. Reassess for steroids if no improvement in respiratory parameters. Yvan Encarnacion M.D. DR: ALEJANDRA JOB#: [id number] CC:
[2018-05-28] MEDS: Solu-MEDROL 125mg Inj IVP SCH ×3 (05:47→21:16)
[2018-05-28] MEDS: Piperacillin/Tazobactam 3.375 GM in D5W 110 ML IVPB SCH ×3 (05:47→21:16)
[2018-05-28] MEDS: HYDROcodone/Acetamin 10/325 tab ORAL PRN ×2 (05:50→16:14)
[2018-05-28 07:34] LABS: HEMATOCRIT 30.5 % (42.0-52.0); HEMOGLOBIN 9.6 G/DL (14.2-18.0); MEAN CORPUSCULAR VOLUME 83 FL (80-99); PLATELET COUNT 186 K/UL (150-450); RED BLOOD COUNT 3.68 M/UL (4.70-6.10); RED CELL DISTRIBUTION WIDTH 17.1 % (11.6-14.8)
--- NOTE | 2018-05-28 07:35 | NUR ---
HAND-OFF: Report given to Rene Dolan RN. Patient in stable condition, Endorsed plan of care.
--- NOTE | 2018-05-28 07:40 | NUR ---
NURSE NOTES: Received patient from JENNIFER Rivas. Patient resting in his bed with open eyes. AOx4. no c/o pain and distress at this time. IV site intact and patent. Bed brakes engaged. call light and frequent used objects are with in reach. pt instructed to use his call light when need help and do not try to get out of bed with no night assistant for safety reasons. patient verbalized understanding of the given instruction. will continue to monitor.
[2018-05-28 08:00] VITALS: BP 106/67
[2018-05-28 08:24] LABS: ALANINE AMINOTRANSFERASE 18 U/L (12-78); ALBUMIN 2.4 G/DL (3.4-5.0); ALBUMIN/GLOBULIN RATIO 0.5 (1.0-2.7); ALKALINE PHOSPHATASE 48 U/L (46-116); ANION GAP 7 mmol/L (5-15); ASPARTATE AMINO TRANSFERASE 19 U/L (15-37); BLOOD UREA NITROGEN 20 mg/dL (7-18); CALCIUM 10.5 MG/DL (8.5-10.1); CARBON DIOXIDE 29 MMOL/L (21-32); CHLORIDE 103 MMOL/L (98-107); CREATININE 1.5 MG/DL (0.55-1.30); POTASSIUM 3.4 MMOL/L (3.5-5.1); SODIUM 139 MMOL/L (136-145)
[2018-05-28] MEDS: Docusate 250mg cap ORAL SCH (09:05)
[2018-05-28] MEDS: Losartan 50mg tab ORAL SCH (09:05)
[2018-05-28] MEDS: Metoprolol Succinate XL 25mg tab ORAL SCH (09:06)
[2018-05-28] MEDS: Amiodarone 200mg tab ORAL SCH (09:06)
[2018-05-28 09:34] LABS: APPEARANCE,URINE CLEAR; BILIRUBIN, URINE NEGATIVE (NEGATIVE); COLOR,URINE PALE YELLOW; GLUCOSE, URINE (UA) NEGATIVE (NEGATIVE); KETONES,URINE NEGATIVE (NEGATIVE); LEUKOCYTE ESTERASE ,URINE 1+ (NEGATIVE); NITRITE,URINE NEGATIVE (NEGATIVE); PH,URINE 5 (4.5-8.0); PROTEIN,URINE 1+ (NEGATIVE); UROBILINOGEN,URINE NORMAL MG/DL (0.0-1.0)
--- NOTE | 2018-05-28 10:29 | Diagnostic Imaging Report ---
INDICATION: Chest pain COMPARISON: Chest x-ray dated 05/27/18 FINDINGS: Single frontal view demonstrates prominent cardiac size. Status post median sternotomy. Left chest wall pacemaker in place. Patchy bilateral mid to lower lung zone opacities, grossly unchanged. No pleural effusions. The visualized osseous structures are within normal limits. IMPRESSION: Prominent cardiac size. Status post median sternotomy. Left chest wall pacemaker in place. Patchy bilateral mid to lower lung zone opacities, grossly unchanged.
--- NOTE | 2018-05-28 11:45 | History and Physical Report ---
DATE OF ADMISSION: 05/27/2018 CHIEF COMPLAINT: Pneumonia. HISTORY OF PRESENT ILLNESS: The patient is a pleasant 82-year-old male, well known to me. He has a history of hypertension, COPD, and hypertensive heart disease. He has a history of congestive status post pacemaker. He has a history of a thoracic aortic aneurysm repair who presented from home with complaints of cough, congestion, and generalized weakness. According to the patient, he has been weak for the last several days. He has had a productive cough, shortness of breath, fevers, and chills. On evaluation in the emergency room, the patient was febrile to 101.5. He had x-ray evidence of bilateral pneumonia. The patient has been pancultured and has been started on broad-spectrum IV antibiotic therapy. He is now admitted for further evaluation and care. PAST MEDICAL HISTORY: As above. history of atrial fibrillation, hypertension, history of asthma, history of chronic cough, history of chronic lower back pain, and osteoarthritis. PAST SURGICAL HISTORY: As above. CURRENT MEDICATIONS: Reconciled and reviewed. ALLERGIES: None. FAMILY HISTORY: None. SOCIAL HISTORY: The patient is a prior smoker. No alcohol. No drugs. REVIEW OF SYSTEMS: GENERAL: Positive fevers and chills. No night sweats. HEENT: No headaches or visual changes. CARDIOPULMONARY: No chest pain. Positive cough, congestion, and shortness of breath. GASTROINTESTINAL: No nausea or vomiting. GENITOURINARY: No urgency or frequency. MUSCULOSKELETAL: History of chronic joint pains. NEUROLOGIC: No evidence of seizures. PHYSICAL EXAMINATION: VITAL SIGNS: T-max is 101.5, current temp 97.9 pulse 63, respirations 20, and blood pressure 103/60. GENERAL: The patient is well developed, in no apparent distress. HEART: Regular rate and rhythm. LUNGS: Significant for bilateral rhonchi and rales. ABDOMEN: Soft, nontender, and nondistended. EXTREMITIES: Without clubbing, cyanosis, or edema. LABORATORY AND IMAGING DATA: Sodium 139, potassium 4, and creatinine is 1.4. White count 16,000, hemoglobin 10, hematocrit 34, and platelets of 166,000. UA was clear. Chest x-ray showed bilateral infiltrates. ASSESSMENT: This is a pleasant male with multiple medical problems including history of hypertension, chronic obstructive pulmonary disease, history of thoracic aortic aneurysm repair, atrial fibrillation, pacemaker, admitted with complaints of sepsis secondary to pneumonia. 1. Sepsis. 2. Pneumonia. 3. Hypertension. 4. Atrial fibrillation. 5. History of chronic obstructive pulmonary disease. PLAN: 1. IV antibiotics. 2. Follow up cultures. 3. Respiratory treatments. 4. IV steroids for chronic obstructive pulmonary disease exacerbation. 5. Cardiology consultation. 6. ID and Pulmonary evaluations will be obtained. Sumit Hallman M.D. DR: PAULETTE JOB#: [id number] CC:
[2018-05-28 12:00] VITALS: BP 100/62
[2018-05-28] MEDS: Vancomycin 750mg/NS 250ml IVPB SCH (12:29)
--- NOTE | 2018-05-28 15:23 | Cardiology Report ---
APPROVED REPORT EKG Measurement Heart [id number] Low atrial focus. Left ventricular hypertrophy with repolarization abnormality Abnormal ECG
[2018-05-28 16:00] VITALS: BP 107/67
[2018-05-28] MEDS: Montelukast 10mg tablet ORAL SCH (16:13)
[2018-05-28] MEDS: Xarelto 10mg tab ORAL SCH (16:13)
--- NOTE | 2018-05-28 19:55 | NUR ---
HAND-OFF: Report given to Cynthia RODRIGUEZ.
[2018-05-28 20:00] VITALS: BP 101/55
--- NOTE | 2018-05-28 20:24 | NUR ---
NURSE NOTES: Report received from JENNIFER Hogan. Pt is lying comfortably in semi-fowlers with no signs of distress noted. A+Ox4, denies pain/SOB. IV site is patent, intact, and saline locked. Respirations are even and unlabored on 2 L NC. Bed is at lowest position, brakes engaged, siderails x2, bed alarm on, and call light within reach. Pt is in stable condition at this time; will continue to monitor. Addendum: 05/28/18 at 2024 by ALESSANDRO NGO RN Report received from Saad
[2018-05-28] MEDS: Tamsulosin 0.4mg cap ORAL SCH (21:16)
[2018-05-29] VITALS: BP 122/68
[2018-05-29] MEDS: HYDROcodone/Acetamin 10/325 tab ORAL PRN ×3 (00:16→17:55)
[2018-05-29] MEDS: Vancomycin 750mg/NS 250ml IVPB SCH ×2 (02:00→13:03)
[2018-05-29] MEDS ORDERED: cefTRIAXone 1 GM in D5W 55 ML IVPB SCH (02:00)
--- NOTE | 2018-05-29 02:30 | Progress Note ---
CARDIOLOGY PROGRESS NOTE DATE: 05/28/2018 SUBJECTIVE: The patient feels better today with less congestion, cough, and shortness of breath. He has defervesced. OBJECTIVE: VITAL SIGNS: Blood pressure 101/55, pulse 74, and respiratory rate 18. Monitored rhythm is sinus with atrial pacing. HEENT: Dry mucous membranes. NECK: Jugular venous pressure elevated. LUNGS: With coarse breath sounds and rhonchi. CARDIAC: Regular rhythm and rate. Normal S1, S2 with a fourth heart sound. ABDOMEN: Soft. EXTREMITIES: With trace dependent edema. DIAGNOSTIC DATA: Chest x-ray reveals cardiomegaly, median sternotomy left chest pacemaker, and bilateral patchy infiltrates. White count 16, hemoglobin 9.6. Potassium 3.4, magnesium 1.8. BUN 20, creatinine 1.5. Albumin 2.4. Pro-natriuretic peptide 3583. IMPRESSION: 1. Bilateral health community-acquired pneumonia. 2. Chronic obstructive pulmonary disease with exacerbation. 3. Acute on chronic diastolic congestive heart failure. 4. Acute myocardial ischemia. 5. Permanent pacemaker. 6. Paroxysmal bronchospasm. 7. Anemia of chronic disease. 8. Hypokalemia. 9. Chronic kidney disease. 10. Lactic acidosis, recovered. 11. Severe sepsis, improving. 12. Severe protein-calorie malnutrition. PLAN: 1. Cardiac monitoring. 2. Respiratory hygiene. 3. Bronchodilators. 4. Broad-spectrum antibiotics. 5. Discontinue hydration. 6. Hold diuresis. 7. Protein supplement. 8. Cardioembolic prophylaxis with rivaroxaban. 9. Maintain amiodarone for suppression of atrial tachyarrhythmias. Yvan Encarnacion M.D. DR: CAROLINE JOB#: [id number] CC:
[2018-05-29] MEDS: Albuterol/Ipratropium 3ml neb HHN SCH ×6 (03:15→22:53)
[2018-05-29 04:00] VITALS: BP 137/84
[2018-05-29] MEDS: Piperacillin/Tazobactam 3.375 GM in D5W 110 ML IVPB SCH ×3 (05:10→21:30)
[2018-05-29] MEDS: Solu-MEDROL 125mg Inj IVP SCH (05:14)
--- NOTE | 2018-05-29 07:20 | NUR ---
NURSE NOTES: I received the patient resting in bed. Patient alert and oriented x4. Bed in the lowest position and call light within reach. Patient does not display any signs of distress or SOB. I will continue to monitor the patient and implement care.
--- NOTE | 2018-05-29 07:21 | NUR ---
HAND-OFF: Report given to JENNIFER Saldana. Pt is in stable condition; plan of care endorsed.
--- NOTE | 2018-05-29 07:47 | General Progress Note ---
Assessment/Plan Problem List: (1) COPD (chronic obstructive pulmonary disease) ICD Codes: J44.9 - Chronic obstructive pulmonary disease, unspecified SNOMED: 07615284 Qualifiers: Qualified Codes: J44.9 - Chronic obstructive pulmonary disease, unspecified (2) Sepsis ICD Codes: A41.9 - Sepsis, unspecified organism SNOMED: 45203355 Qualifiers: Qualified Codes: A41.9 - Sepsis, unspecified organism (3) Pneumonia ICD Codes: J18.9 - Pneumonia, unspecified organism SNOMED: 618780204 Qualifiers: Qualified Codes: J18.1 - Lobar pneumonia, unspecified organism (4) Elevated troponin ICD Codes: R74.8 - Elevated troponin SNOMED: 532198572 (5) Stroke ICD Codes: I63.9 - Cerebral infarction, unspecified SNOMED: 100247047 Status: stable, progressing Assessment/Plan cont iv abx follow up repeat cxr follow up cultures resp rx wean iv steroids follow labs pt/ot Subjective ROS Limited/Unobtainable: No Constitutional: Reports: malaise, weakness HEENT: Reports: no symptoms Cardiovascular: Reports: no symptoms Respiratory: Reports: cough Gastrointestinal/Abdominal: Reports: no symptoms Neurologic/Psychiatric: Reports: no symptoms Endocrine: Reports: no symptoms Hematologic/Lymphatic: Reports: no symptoms Allergies: Coded Allergies: No Known Allergies (Verified , 01/23/09) All Systems: reviewed and negative except above Subjective states he feels "better." decreased cough and congestion. no fever or chills. no sob. labs not back yet Objective Last 24 Hour Vital Signs Date Time Temp Pulse Resp B/P (MAP) Pulse Ox O2 Delivery O2 Flow Rate FiO2 05/29/18 07:36 67 18 96 Nasal Cannula 2.0 28 05/29/18 07:23 95 Nasal Cannula 2.0 28 05/29/18 07:23 65 17 95 Nasal Cannula 2.0 28 05/29/18 07:23 Nasal Cannula 2.0 28 05/29/18 04:00 97.1 68 19 137/84 (101) 99 05/29/18 04:00 69 05/29/18 03:15 76 18 96 Nasal Cannula 2.0 28 05/29/18 03:03 67 18 94 Nasal Cannula 2.0 28 05/29/18 00:00 72 05/29/18 00:00 97.7 78 18 122/68 (86) 95 05/28/18 22:48 70 18 97 Nasal Cannula 2.0 28 05/28/18 22:40 65 18 95 Nasal Cannula 2.0 28 05/28/18 21:00 Nasal Cannula 3.0 05/28/18 20:00 97.6 74 18 101/55 (70) 95 05/28/18 20:00 71 05/28/18 19:00 72 18 96 Nasal Cannula 2.0 28 05/28/18 18:59 94 Nasal Cannula 2.0 28 05/28/18 18:57 Nasal Cannula 2.0 28 05/28/18 18:50 68 18 94 Nasal Cannula 2.0 28 05/28/18 16:44 97.8 05/28/18 16:00 97.5 64 20 107/67 (80) 94 05/28/18 16:00 68 05/28/18 15:20 74 20 97 Nasal Cannula 2.0 28 05/28/18 15:14 81 18 97 Nasal Cannula 2.0 28 05/28/18 15:14 28 05/28/18 12:00 97.8 68 20 100/62 (75) 94 05/28/18 12:00 68 05/28/18 10:52 79 18 97 Nasal Cannula 2.0 28 05/28/18 10:45 76 16 96 Nasal Cannula 2.0 28 05/28/18 10:45 28 05/28/18 09:06 84 106/67 05/28/18 09:05 84 106/67 05/28/18 09:05 106/67 05/28/18 09:00 Nasal Cannula 2.0 05/28/18 08:00 67 05/28/18 08:00 97.6 84 22 106/67 (80) 94 Intake and Output 05/28/18 05/29/18 19:00 07:00 Intake Total 360 ml Output Total 600 ml 600 ml Balance -240 ml -600 ml Intake Oral 360 ml Output Urine Total 600 ml 600 ml Height (Feet): 6 Height (Inches): 2.00 Weight (Pounds): 210 General Appearance: WD/WN, alert EENT: normal ENT inspection Neck: supple Cardiovascular: regular rhythm Respiratory/Chest: chest wall non-tender, rhonchi - bilaterally Abdomen: normal bowel sounds, non tender, soft, no organomegaly Edema: no edema noted Arm (L), no edema noted Arm (R), no edema noted Leg (L), no edema noted Leg (R), no edema noted Pedal (L), no edema noted Pedal (R), no edema noted Generalized Neurologic: sewer cleaner II-XII 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, no motor/sensory deficits, alert, oriented x 3 Sumit Hallman MD May 29, 2018 07:47
[2018-05-29 08:00] VITALS: BP 108/69
[2018-05-29 08:23] LABS: HEMATOCRIT 30.5 % (42.0-52.0); HEMOGLOBIN 9.3 G/DL (14.2-18.0); MEAN CORPUSCULAR VOLUME 84 FL (80-99); PLATELET COUNT 206 K/UL (150-450); RED BLOOD COUNT 3.64 M/UL (4.70-6.10); RED CELL DISTRIBUTION WIDTH 17.2 % (11.6-14.8)
[2018-05-29 08:31] LABS: WHITE BLOOD COUNT 23.3 K/UL (4.8-10.8)
[2018-05-29] MEDS: Docusate 250mg cap ORAL SCH (08:40)
[2018-05-29] MEDS: Amiodarone 200mg tab ORAL SCH (08:40)
[2018-05-29] MEDS: Losartan 50mg tab ORAL SCH (08:44)
[2018-05-29] MEDS: Metoprolol Succinate XL 25mg tab ORAL SCH (08:44)
[2018-05-29 09:03] LABS: ALANINE AMINOTRANSFERASE 19 U/L (12-78); ALBUMIN 2.4 G/DL (3.4-5.0); ALBUMIN/GLOBULIN RATIO 0.5 (1.0-2.7); ALKALINE PHOSPHATASE 48 U/L (46-116); ANION GAP 8 mmol/L (5-15); ASPARTATE AMINO TRANSFERASE 21 U/L (15-37); BILIRUBIN,TOTAL 0.6 MG/DL (0.2-1.0); BLOOD UREA NITROGEN 33 mg/dL (7-18); CALCIUM 10.9 MG/DL (8.5-10.1); CARBON DIOXIDE 28 MMOL/L (21-32); CHLORIDE 102 MMOL/L (98-107); CREATININE 1.7 MG/DL (0.55-1.30); POTASSIUM 3.5 MMOL/L (3.5-5.1); SODIUM 138 MMOL/L (136-145)
[2018-05-29 11:49] VITALS: BP 106/59
[2018-05-29 16:00] VITALS: BP 110/64
[2018-05-29] MEDS: Xarelto 10mg tab ORAL SCH (17:05)
[2018-05-29] MEDS: Montelukast 10mg tablet ORAL SCH (17:05)
--- NOTE | 2018-05-29 17:42 | NUR ---
CASE MANAGEMENT:REVIEW IN WHEELCHAIR FROM HOME CC; SOB X3 DAYS. T~101.5 SI: COPD. PNA. SEPSIS. ELEVATED TROPONIN 102.4 83 15 122/71 90% ON 2L/NC WBC+15.6 TROPONIN(+) 0.115 IS: DUONEB HHN Q15 X3 500CC NS BOLUS IV SOLUMEDROL TYLENOL PO CXR BLOOD CX : TO TELEMETRY INTERQUAL CRITERIA MET
--- NOTE | 2018-05-29 19:32 | NUR ---
HAND-OFF: Report given to JENNIFER Priest.
--- NOTE | 2018-05-29 19:34 | NUR ---
NURSE NOTES: Received report from Shana RODRIGUEZ. Pt in stable condition denies any pain or discomfort. No s/s of distress or discomfort noted. Call light within reach, bedside table within reach, bed in low and locked position. Continue to monitor.
[2018-05-29 20:00] VITALS: BP 115/68
[2018-05-29] MEDS ORDERED: Solu-MEDROL 125mg Inj IVP SCH (21:00)
[2018-05-29] MEDS: Tamsulosin 0.4mg cap ORAL SCH (21:29)
[2018-05-30] VITALS: BP 102/59
--- NOTE | 2018-05-30 02:15 | Progress Note ---
DATE: 05/29/2018 CARDIOLOGY PROGRESS NOTE SUBJECTIVE: The patient feels better. Less congestion and shortness of breath. No chest pain. Appetite is improved. He is on antimicrobials, intravenous steroids, inhaled bronchodilators, and he has been on diuresis as well. Monitored rhythm sinus with atrial ectopy. Cultures remain negative of the blood. PHYSICAL EXAMINATION: VITAL SIGNS: Blood pressure 115/68, pulse 67, respiratory rate 16. Afebrile. Oropharynx clear. NECK: Supple. LUNGS: With coarse breath sounds and rhonchi. CARDIAC: Regular rhythm and rate. Normal S1, S2 with a 1/6 systolic apical murmur. ABDOMEN: Soft, trace edema. LABORATORY DATA: White count 23, hemoglobin 9.3, sodium 138, potassium 3.5, bicarbonate 28, BUN 33, creatinine 1.7. Pro natriuretic peptide down to 1427. Albumin 2.4. Lactic acid has normalized. IMPRESSION: 1. Sepsis. 2. Pneumonia. 3. Acute on chronic diastolic congestive heart failure. 4. Hypokalemia corrected. 5. Acute on chronic renal failure post diuresis. 6. Lactic acidosis corrected. 7. Hypertensive heart disease with controlled blood pressure. 8. Severe protein-calorie malnutrition. 9. Permanent pacemaker. 10. History of thoracic aortic aneurysm repair. 11. Chronic obstructive pulmonary disease now with no active bronchospasm. 12. Leukocytosis due to steroids. PLAN: 1. Hold diuresis. 2. Monitor volume status. 3. Cardiorenal parameters. 4. Taper steroids. 5. Protein supplement. 6. Empiric antibiotics. 7. Continue cardioembolic prophylaxis with apixaban and arrhythmia suppression with amiodarone. Yvan Encarnacion M.D. DR: ANDREW JOB#: [id number] CC:
[2018-05-30] MEDS: Vancomycin 750mg/NS 250ml IVPB SCH ×2 (02:30→15:57)
[2018-05-30] MEDS: HYDROcodone/Acetamin 10/325 tab ORAL PRN ×3 (03:22→20:43)
[2018-05-30] MEDS: Albuterol/Ipratropium 3ml neb HHN SCH ×6 (03:40→23:02)
[2018-05-30 04:54] VITALS: BP 102/64
[2018-05-30] MEDS: Piperacillin/Tazobactam 3.375 GM in D5W 110 ML IVPB SCH ×3 (05:36→21:28)
[2018-05-30 07:16] LABS: HEMATOCRIT 28.4 % (42.0-52.0); HEMOGLOBIN 8.8 G/DL (14.2-18.0); MEAN CORPUSCULAR VOLUME 83 FL (80-99); PLATELET COUNT 219 K/UL (150-450); RED BLOOD COUNT 3.43 M/UL (4.70-6.10); RED CELL DISTRIBUTION WIDTH 17.2 % (11.6-14.8); WHITE BLOOD COUNT 20.4 K/UL (4.8-10.8)
[2018-05-30 07:20] LABS: ALANINE AMINOTRANSFERASE 20 U/L (12-78); ALBUMIN 2.2 G/DL (3.4-5.0); ALBUMIN/GLOBULIN RATIO 0.5 (1.0-2.7); ALKALINE PHOSPHATASE 51 U/L (46-116); ANION GAP 8 mmol/L (5-15); ASPARTATE AMINO TRANSFERASE 21 U/L (15-37); BILIRUBIN,TOTAL 0.5 MG/DL (0.2-1.0); BLOOD UREA NITROGEN 33 mg/dL (7-18); CALCIUM 10.5 MG/DL (8.5-10.1); CARBON DIOXIDE 28 MMOL/L (21-32); CHLORIDE 103 MMOL/L (98-107); CREATININE 1.4 MG/DL (0.55-1.30); POTASSIUM 4.2 MMOL/L (3.5-5.1); SODIUM 139 MMOL/L (136-145)
--- NOTE | 2018-05-30 07:30 | NUR ---
HAND-OFF: Report given to [facility] RN. Endorsed plan of care.
--- NOTE | 2018-05-30 07:58 | NUR ---
NURSE NOTES: Received patient from JENNIFER Barnhart. Patient resting in his bed with open eyes. AOx4. no c/o pain and distress at this time. IV site intact and patent. Bed brakes engaged. call light and frequent used objects are with in reach. pt instructed to use his call light when need help and do not try to get out of bed with no assistant professor of theater for safety reasons. patient verbalized understanding of the given instruction. will continue to monitor.
[2018-05-30 08:00] VITALS: BP 117/64
[2018-05-30] MEDS: Metoprolol Succinate XL 25mg tab ORAL SCH (08:23)
[2018-05-30] MEDS: Docusate 250mg cap ORAL SCH (08:25)
[2018-05-30] MEDS: Amiodarone 200mg tab ORAL SCH (08:25)
[2018-05-30] MEDS: Losartan 50mg tab ORAL SCH (08:27)
[2018-05-30] MEDS ORDERED: Solu-MEDROL 40mg Inj IVP SCH (09:00)
--- NOTE | 2018-05-30 09:56 | General Progress Note ---
Assessment/Plan Problem List: (1) COPD (chronic obstructive pulmonary disease) ICD Codes: J44.9 - Chronic obstructive pulmonary disease, unspecified SNOMED: 47424755 Qualifiers: Qualified Codes: J44.9 - Chronic obstructive pulmonary disease, unspecified (2) Sepsis ICD Codes: A41.9 - Sepsis, unspecified organism SNOMED: 89017899 Qualifiers: Qualified Codes: A41.9 - Sepsis, unspecified organism (3) Pneumonia ICD Codes: J18.9 - Pneumonia, unspecified organism SNOMED: 968582479 Qualifiers: Qualified Codes: J18.1 - Lobar pneumonia, unspecified organism (4) Elevated troponin ICD Codes: R74.8 - Elevated troponin SNOMED: 126208661 (5) Stroke ICD Codes: I63.9 - Cerebral infarction, unspecified SNOMED: 658695111 Status: stable, progressing Assessment/Plan cont iv abx follow up cultures resp rx wean iv steroids follow labs- wbc pt/ot Subjective ROS Limited/Unobtainable: No Constitutional: Reports: malaise, weakness HEENT: Reports: no symptoms Cardiovascular: Reports: no symptoms Respiratory: Reports: cough, shortness of breath Gastrointestinal/Abdominal: Reports: no symptoms Genitourinary: Reports: no symptoms Neurologic/Psychiatric: Reports: no symptoms Endocrine: Reports: no symptoms Hematologic/Lymphatic: Reports: no symptoms Allergies: Coded Allergies: No Known Allergies (Verified , 01/23/09) All Systems: reviewed and negative except above Subjective no complaints. feels better. cxr- no change. wbc remains elevatred- ?due to steroids remains on iv abx. Objective Last 24 Hour Vital Signs Date Time Temp Pulse Resp B/P (MAP) Pulse Ox O2 Delivery O2 Flow Rate FiO2 05/30/18 08:27 117/64 05/30/18 08:24 60 117/64 05/30/18 08:23 60 117/64 05/30/18 08:00 96.9 60 20 117/64 (81) 95 05/30/18 07:45 68 18 96 Nasal Cannula 2.0 28 05/30/18 07:36 100 Nasal Cannula 2.0 28 05/30/18 07:36 Nasal Cannula 2.0 28 05/30/18 07:35 60 18 100 Nasal Cannula 2.0 28 05/30/18 04:54 97.9 62 19 102/64 (77) 95 05/30/18 04:00 63 05/30/18 03:52 97.7 05/30/18 03:40 Nasal Cannula 2.0 28 05/30/18 03:40 Nasal Cannula 2.0 28 05/30/18 00:00 66 05/30/18 00:00 97.7 66 20 102/59 (73) 95 05/29/18 23:06 64 18 98 Nasal Cannula 2.0 28 05/29/18 22:53 66 18 94 Nasal Cannula 2.0 28 05/29/18 21:00 Nasal Cannula 2.0 05/29/18 20:00 65 05/29/18 20:00 97.7 67 16 115/68 (84) 98 05/29/18 19:52 66 18 98 Nasal Cannula 2.0 28 05/29/18 19:41 61 18 95 Nasal Cannula 2.0 28 05/29/18 19:41 95 Nasal Cannula 2.0 28 05/29/18 19:41 Nasal Cannula 2.0 28 05/29/18 16:00 98.0 62 20 110/64 (79) 95 05/29/18 15:16 65 05/29/18 15:16 64 16 97 Nasal Cannula 2.0 28 05/29/18 15:05 63 17 95 Nasal Cannula 2.0 28 05/29/18 12:23 73 05/29/18 11:49 98.5 69 20 106/59 (75) 95 05/29/18 11:10 69 17 97 Nasal Cannula 2.0 28 05/29/18 11:00 68 17 94 Nasal Cannula 2.0 28 Intake and Output 05/29/18 05/30/18 19:00 07:00 Intake Total 933.334 ml Output Total 500 ml 600 ml Balance 433.334 ml -600 ml Intake Oral 600 ml IV Total 333.334 ml Output Urine Total 500 ml 600 ml # Voids 2 Laboratory Tests 05/30/18 00:55: Vancomycin Level Trough 14.9H 05/30/18 06:05: White Blood Count 20.4H, Red Blood Count 3.43L, Hemoglobin 8.8L, Hematocrit 28.4L, Mean Corpuscular Volume 83, Mean Corpuscular Hemoglobin 25.7L, Mean Corpuscular Hemoglobin Concent 31.1L, Red Cell Distribution Width 17.2H, Platelet Count 219, Mean Platelet Volume 7.2, Neutrophils (%) (Auto) , Lymphocytes (%) (Auto) , Monocytes (%) (Auto) , Eosinophils (%) (Auto) , Basophils (%) (Auto) , Differential Total Cells Counted 100, Neutrophils % ( Manual) 94H, Lymphocytes % (Manual) 3L, Monocytes % (Manual) 2, Eosinophils % ( Manual) 0, Basophils % (Manual) 0, Band Neutrophils 1, Nucleated Red Blood Cells 1, Platelet Estimate Adequate, Platelet Morphology Normal, Hypochromasia 1 +, Anisocytosis 1+, Ovalocytes Occasional, Schistocytes Occasional, Sodium Level 139, Potassium Level 4.2, Chloride Level 103, Carbon Dioxide Level 28, Anion Gap 8, Blood Urea Nitrogen 33H, Creatinine 1.4H, Estimat Glomerular Filtration Rate , Glucose Level 147H, Calcium Level 10.5H, Total Bilirubin 0.5, Aspartate Amino Transf (AST/SGOT) 21, Alanine Aminotransferase (ALT/SGPT) 20, Alkaline Phosphatase 51, Total Protein 6.7, Albumin 2.2L, Globulin 4.5, Albumin/ Globulin Ratio 0.5L Height (Feet): 6 Height (Inches): 2.00 Weight (Pounds): 210 Objective General Appearance: WD/WN, alert EENT: normal ENT inspection Neck: supple Cardiovascular: regular rhythm Respiratory/Chest: chest wall non-tender, rhonchi - bilaterally Abdomen: normal bowel sounds, non tender, soft, no organomegaly Edema: no edema noted Arm (L), no edema noted Arm (R), no edema noted Leg (L), no edema noted Leg (R), no edema noted Pedal (L), no edema noted Pedal (R), no edema noted Generalized Neurologic: staff consultant II-XII 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, no motor/sensory deficits, alert, oriented x 3 Sumit Hallman MD May 30, 2018 09:56
[2018-05-30 12:00] VITALS: BP 103/63
[2018-05-30 16:06] VITALS: BP 130/77
[2018-05-30] MEDS: Xarelto 10mg tab ORAL SCH (16:26)
[2018-05-30] MEDS: Montelukast 10mg tablet ORAL SCH (16:26)
--- NOTE | 2018-05-30 19:00 | Progress Note ---
DATE: 05/30/2018 CARDIOLOGY PROGRESS NOTE SUBJECTIVE: The patient feels better. He is still coughing with congestion and shortness of breath. He is on IV antibiotics. OBJECTIVE: VITAL SIGNS: Blood pressure 130/77, pulse 69, and respirations 20. LUNGS: Coarse breath sounds. Few rhonchi. HEART: Regular rhythm and rate. Normal S1, S2. Monitor reveals a paced rhythm. ABDOMEN: Soft. EXTREMITIES: No edema with degenerative changes of the hands and leg joints. CULTURES: Remain negative. LABORATORY DATA: Labs notable for white count 20 and hemoglobin 8.8. Potassium 4.2, BUN 33, and creatinine 1.4. Albumin 2.2. IMPRESSION: 1. Pneumonia. 2. Paroxysmal bronchospasm. 3. Chronic obstructive pulmonary disease exacerbation. 4. Acute on chronic kidney injury. 5. Acute on chronic diastolic congestive heart failure. 6. Severe protein-calorie malnutrition. 7. Osteoarthritis. 8. Unsteady gait. 9. Permanent pacemaker. PLAN: 1. Antimicrobials. 2. Bronchodilators. 3. Respiratory hygiene. 4. Steroid taper. 5. Full anticoagulation for cardioembolic prophylaxis. 6. Protein supplement. 7. Monitor volume status. 8. Titrate anti-failure and antihypertensive regimen. Yvan Encarnacion M.D. DR: AIYANA JOB#: [id number] CC:
--- NOTE | 2018-05-30 19:14 | NUR ---
NURSE NOTES: Received bedside report from JENNIFER Nash.Patient stable,A&O x4,SR on monitor worker, 2 L/min N/C,IV asymptomatic,intact on L f/arm 20 G SL,pt bed bound,verbally understand given instructions,no c/o pain,no respiratory distress noted,BS active in all quadrants,bed secured in a low safety position,call light within a reach,Will continue to monitor and follow POC.
--- NOTE | 2018-05-30 19:36 | NUR ---
HAND-OFF: Report given to TRAMAINE RODRIGUEZ.
[2018-05-30 20:00] VITALS: BP 120/70
[2018-05-30] MEDS: Tamsulosin 0.4mg cap ORAL SCH (20:38)
[2018-05-31] VITALS (7 sets, daily range): BP systolic 102–140; BP diastolic 61–79
[2018-05-31] MEDS: Vancomycin 750mg/NS 250ml IVPB SCH (01:31)
[2018-05-31] MEDS: Albuterol/Ipratropium 3ml neb HHN SCH ×6 (03:00→23:18)
[2018-05-31] MEDS: Piperacillin/Tazobactam 3.375 GM in D5W 110 ML IVPB SCH ×3 (05:28→21:30)
--- NOTE | 2018-05-31 07:13 | NUR ---
NURSE NOTES: Report received from JENNIFER Fraire. Patient in 2L NC, denies any SOB or pain. L FA IV 20g running ProtoExchangen at this time. Site intact. Bed on lowest position, side rails upx2, brakes engaged. Call light within easy reach.
--- NOTE | 2018-05-31 07:13 | NUR ---
HAND-OFF: Report given to JENNIFER Rajput.Patient stable.
[2018-05-31] MEDS: Docusate 250mg cap ORAL SCH (08:51)
[2018-05-31] MEDS: Amiodarone 200mg tab ORAL SCH (08:51)
[2018-05-31] MEDS: Losartan 50mg tab ORAL SCH (08:52)
[2018-05-31] MEDS: Metoprolol Succinate XL 25mg tab ORAL SCH (08:52)
[2018-05-31] MEDS: HYDROcodone/Acetamin 10/325 tab ORAL PRN ×2 (08:59→17:12)
[2018-05-31 09:16] LABS: HEMATOCRIT 31.7 % (42.0-52.0); HEMOGLOBIN 9.8 G/DL (14.2-18.0); MEAN CORPUSCULAR VOLUME 83 FL (80-99); PLATELET COUNT 223 K/UL (150-450); RED CELL DISTRIBUTION WIDTH 17.6 % (11.6-14.8)
[2018-05-31 09:32] LABS: WHITE BLOOD COUNT 24.3 K/UL (4.8-10.8)
[2018-05-31 09:38] LABS: ALANINE AMINOTRANSFERASE 25 U/L (12-78); ALBUMIN 2.4 G/DL (3.4-5.0); ALBUMIN/GLOBULIN RATIO 0.5 (1.0-2.7); ALKALINE PHOSPHATASE 52 U/L (46-116); ANION GAP 7 mmol/L (5-15); ASPARTATE AMINO TRANSFERASE 21 U/L (15-37); BILIRUBIN,TOTAL 0.5 MG/DL (0.2-1.0); BLOOD UREA NITROGEN 33 mg/dL (7-18); CALCIUM 10.5 MG/DL (8.5-10.1); CARBON DIOXIDE 29 MMOL/L (21-32); CHLORIDE 103 MMOL/L (98-107); CREATININE 1.4 MG/DL (0.55-1.30); POTASSIUM 4.1 MMOL/L (3.5-5.1); SODIUM 139 MMOL/L (136-145)
--- NOTE | 2018-05-31 09:46 | NUR ---
REHAB MED PT NOTE CONSULT JEWEL CARRTED, PATIENT WILL BENEFIT FROM SKILLED PT DURING STAY FOR RETURN TO [facility]. RECOMMEND HOME PT AT MO. PLAN OF CARE INITIATED. DEE DEE LOTT PT DPT Addendum: 05/31/18 at 0947 by DE EDEE LOTT PT Amended: Links added.
--- NOTE | 2018-05-31 10:00 | Discharge Summary ---
DATE OF ADMISSION: 05/27/2018 DATE OF DISCHARGE: 05/31/2018 ADMISSION DIAGNOSES: 1. Pneumonia. 2. Hypertension. 3. COPD exacerbation. 4. Sepsis. 5. Elevated troponin. 6. History of thoracic aortic aneurysm repair. 7. Severe protein malnutrition. 8. Unstable gait. 9. History of pacemaker. DISCHARGE DIAGNOSES: 1. Pneumonia. 2. Hypertension. 3. COPD exacerbation. 4. Sepsis. 5. Elevated troponin. 6. History of thoracic aortic aneurysm repair. 7. Severe protein malnutrition. 8. Unstable gait. 9. History of pacemaker. BRIEF HISTORY AND HOSPITAL COURSE: The patient is a pleasant male, admitted with complaints of shortness of breath, cough, and congestion. He was diagnosed with pneumonia and COPD exacerbation. He received intravenous antibiotics and IV steroids. He received respiratory treatments [id number]. Cardiology consultation was obtained to assist with the patient's cardiac medications. The patient improved, but was too weak to go home. He will be discharged to go to a [facility] facility. We will complete antibiotic therapy as well as physical therapy. DISCHARGE MEDICATIONS: Please see discharge medication list for discharge medications. DIET: Cardiac diet. ACTIVITIES: Ad-amy. FOLLOWUP: The patient will follow up in one to two days at the [facility] facility. Sumit Hallman M.D. DR: CLEOPATRA JOB#: [id number] CC:
--- NOTE | 2018-05-31 10:45 | NUR ---
NURSE NOTES: Left a message to Dr. Hallman regarding Patient's WBC. Waiting for a call back.
[2018-05-31] MEDS ORDERED: Milk of Magnesia 30ml Ud ORAL PRN (13:00)
--- NOTE | 2018-05-31 13:00 | NUR ---
TRANSFER TO FLOOR: Patient transferred to [facility], per Dr. Encarnacion. Report given to ANA Kim. Belongings and medications given to ANA Kim. Patient called family to informed of transfer.
--- NOTE | 2018-05-31 13:10 | NUR ---
NURSE NOTES: Patient's own 2 electronic shaving devices and a bible added into belongings list.
[2018-05-31] MEDS: Vancomycin 750mg/NS 250ml 250 ML IVPB SCH ×2 (13:46→14:36)
[2018-05-31] MEDS ORDERED: Piperacillin/Tazobactam 3.375 GM in D5W 110 ML IVPB SCH (14:00)
[2018-05-31] MEDS: Xarelto 10mg tab ORAL SCH (16:11)
[2018-05-31] MEDS: Montelukast 10mg tablet ORAL SCH (16:12)
--- NOTE | 2018-05-31 17:13 | NUR ---
CASE MANAGEMENT:REVIEW 05/31/18 SI: COPD. PNA. SEPSIS. ELEVATED TROPONIN 97.3 65 20 140/73 92% ON 2L/NC WBC+24.3 IS: IV ZOSYN Q8HRS IV VANCOMYCIN Q12 DUONEB HHN Q4HRS PREDNISONE PO QD COZAAR PO QD NORVASC PO QD AMIODARONE PO QD : TELEMETRY STATUS DCP: PATIENT IS FROM HOME
--- NOTE | 2018-05-31 19:11 | NUR ---
HAND-OFF: Report given to JENNIFER Collier.
--- NOTE | 2018-05-31 19:30 | NUR ---
NURSE NOTES: Patient received sitting on the bed, no acute distress at this time. On o2 via NC. IV is intact and patent, zosyn infusing. Call light in reach. Urinal and personal belongings within reach. Will continue to monitor.
[2018-05-31] MEDS: Tamsulosin 0.4mg cap ORAL SCH (21:30)
[2018-06-01] MEDS: Vancomycin 750mg/NS 250ml 250 ML IVPB SCH ×2 (02:01→13:34)
[2018-06-01] MEDS: Albuterol/Ipratropium 3ml neb HHN SCH ×5 (02:44→20:10)
--- NOTE | 2018-06-01 04:15 | Progress Note ---
DATE: 05/31/2018 CARDIOLOGY PROGRESS NOTE SUBJECTIVE: The patient has less congestion and shortness of breath. Mobilization is just being started. OBJECTIVE: VITAL SIGNS: Blood pressure 104/65, pulse 64, respirations 19, and afebrile. LUNGS: Coarse breath sounds. Scattered rhonchi. HEART: Regular rhythm and rate. Normal S1 and S2. There is 1/6 systolic apical murmur. ABDOMEN: Soft. No edema. LABORATORY DATA: White count 24 and hemoglobin 9.8. Potassium 4.1, BUN 33, and creatinine 1.4. IMPRESSION: Improving. PLAN: 1. Continue antimicrobials. 2. Respiratory hygiene. 3. Steroid taper. 4. Transition from IV to oral diuretics. 5. Titrate anti-failure and antihypertensive regimen based on clinical parameters. 6. Physical and occupational therapy at retirement facility for rehabilitation. Short course of rehabilitation is being considered. Yvan Encarnacion M.D. DR: NOHEMY JOB#: [id number] CC:
[2018-06-01 04:16] VITALS: BP 120/70
[2018-06-01] MEDS: HYDROcodone/Acetamin 10/325 tab ORAL PRN ×3 (04:46→22:01)
[2018-06-01] MEDS: Piperacillin/Tazobactam 3.375 GM in D5W 110 ML IVPB SCH ×3 (05:02→22:42)
--- NOTE | 2018-06-01 06:59 | NUR ---
HAND-OFF: Report given to Alecia RODRIGUEZ.
--- NOTE | 2018-06-01 07:16 | NUR ---
NURSE NOTES: Report received from JENNIFER Collier. Pt in bed, awake, A/O x 4, eating breakfast, NC O2 on at 2 L, no SOB, no complaints of pain, no apparent distress, bed in lowest position, call light within reach.
--- NOTE | 2018-06-01 07:22 | General Progress Note ---
Assessment/Plan Problem List: (1) COPD (chronic obstructive pulmonary disease) ICD Codes: J44.9 - Chronic obstructive pulmonary disease, unspecified SNOMED: 62434048 Qualifiers: Qualified Codes: J44.9 - Chronic obstructive pulmonary disease, unspecified (2) Sepsis ICD Codes: A41.9 - Sepsis, unspecified organism SNOMED: 69740013 Qualifiers: Qualified Codes: A41.9 - Sepsis, unspecified organism (3) Pneumonia ICD Codes: J18.9 - Pneumonia, unspecified organism SNOMED: 817844646 Qualifiers: Qualified Codes: J18.1 - Lobar pneumonia, unspecified organism (4) Elevated troponin ICD Codes: R74.8 - Elevated troponin SNOMED: 646940474 (5) Stroke ICD Codes: I63.9 - Cerebral infarction, unspecified SNOMED: 158768386 Status: stable, progressing Assessment/Plan cont iv abx follow up cultures resp rx po steroid taper follow labs- wbc pt/ot dc planning to snf Subjective ROS Limited/Unobtainable: No Constitutional: Reports: malaise, weakness HEENT: Reports: no symptoms Cardiovascular: Reports: no symptoms Respiratory: Reports: cough, shortness of breath Gastrointestinal/Abdominal: Reports: no symptoms Genitourinary: Reports: no symptoms Neurologic/Psychiatric: Reports: no symptoms Endocrine: Reports: no symptoms Hematologic/Lymphatic: Reports: no symptoms Allergies: Coded Allergies: No Known Allergies (Verified , 01/23/09) All Systems: reviewed and negative except above Subjective no complaints. eating breakfast. nontoxic. feels better. cxr- no change. wbc remains elevatred- ?due to steroids remains on iv abx. labs pending for today. Objective Last 24 Hour Vital Signs Date Time Temp Pulse Resp B/P (MAP) Pulse Ox O2 Delivery O2 Flow Rate FiO2 06/01/18 05:16 98.0 06/01/18 04:16 98.0 61 18 120/70 (87) 97 06/01/18 02:45 Nasal Cannula 2.0 28 06/01/18 02:44 Nasal Cannula 2.0 28 05/31/18 23:38 97.6 61 19 116/65 (82) 94 05/31/18 23:19 64 20 99 Nasal Cannula 2.0 28 05/31/18 23:08 59 18 98 Nasal Cannula 2.0 28 05/31/18 21:00 Nasal Cannula 2.0 05/31/18 20:00 Nasal Cannula 2.0 28 05/31/18 20:00 97.4 64 19 104/65 (78) 97 05/31/18 20:00 Nasal Cannula 2.0 28 05/31/18 20:00 97 Nasal Cannula 2.0 28 05/31/18 20:00 Nasal Cannula 2.0 28 05/31/18 16:00 97.3 65 20 140/73 (95) 92 05/31/18 14:37 Nasal Cannula 2.0 28 05/31/18 14:37 Nasal Cannula 2.0 28 05/31/18 12:00 98.0 70 20 109/68 (82) 95 05/31/18 10:51 93 20 98 Nasal Cannula 2.0 28 05/31/18 10:45 88 22 96 Nasal Cannula 2.0 28 05/31/18 09:00 Nasal Cannula 2.0 05/31/18 08:52 69 122/71 05/31/18 08:52 122/71 05/31/18 08:51 69 122/71 05/31/18 08:00 97.9 69 20 122/71 (88) 98 05/31/18 07:39 67 05/31/18 07:25 89 22 99 Nasal Cannula 2.0 28 05/31/18 07:24 Nasal Cannula 2.0 28 05/31/18 07:24 97 Nasal Cannula 2.0 28 05/31/18 07:20 91 18 97 Nasal Cannula 2.0 Intake and Output 05/31/18 06/01/18 18:59 06:59 Intake Total 994.17 ml 692.500 ml Output Total 250 ml Balance 744.17 ml 692.500 ml Intake Oral 800 ml 250 ml IV Total 194.17 ml 442.500 ml Output Urine Total 250 ml # Voids 2 # Bowel Movements 1 Laboratory Tests 05/31/18 08:10: White Blood Count 24.3*H, Red Blood Count 3.80L, Hemoglobin 9.8L, Hematocrit 31.7L, Mean Corpuscular Volume 83, Mean Corpuscular Hemoglobin 25.7L, Mean Corpuscular Hemoglobin Concent 30.8L, Red Cell Distribution Width 17.6H, Platelet Count 223, Mean Platelet Volume 6.9, Neutrophils (%) (Auto) , Lymphocytes (%) (Auto) , Monocytes (%) (Auto) , Eosinophils (%) (Auto) , Basophils (%) (Auto) , Differential Total Cells Counted 100, Neutrophils % ( Manual) 87H, Lymphocytes % (Manual) 6L, Monocytes % (Manual) 4, Eosinophils % ( Manual) 0, Basophils % (Manual) 0, Band Neutrophils 3, Nucleated Red Blood Cells 1, Platelet Estimate Adequate, Platelet Morphology Normal, Hypochromasia 1 +, Anisocytosis 1+, Sodium Level 139, Potassium Level 4.1, Chloride Level 103, Carbon Dioxide Level 29, Anion Gap 7, Blood Urea Nitrogen 33H, Creatinine 1.4H, Estimat Glomerular Filtration Rate , Glucose Level 118H, Calcium Level 10.5H, Total Bilirubin 0.5, Aspartate Amino Transf (AST/SGOT) 21, Alanine Aminotransferase (ALT/SGPT) 25, Alkaline Phosphatase 52, Total Protein 7.2, Albumin 2.4L, Globulin 4.8, Albumin/Globulin Ratio 0.5L 05/31/18 13:00: Vancomycin Level Trough 14.6H Height (Feet): 6 Height (Inches): 2.00 Weight (Pounds): 223 Objective General Appearance: WD/WN, alert EENT: normal ENT inspection Neck: supple Cardiovascular: regular rhythm Respiratory/Chest: chest wall non-tender, rhonchi - bilaterally Abdomen: normal bowel sounds, non tender, soft, no organomegaly Edema: no edema noted Arm (L), no edema noted Arm (R), no edema noted Leg (L), no edema noted Leg (R), no edema noted Pedal (L), no edema noted Pedal (R), no edema noted 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
[2018-06-01 08:00] VITALS: BP 122/73
[2018-06-01] MEDS: Docusate 250mg cap ORAL SCH (08:10)
[2018-06-01] MEDS: Amiodarone 200mg tab ORAL SCH (08:10)
[2018-06-01] MEDS: Losartan 50mg tab ORAL SCH (08:12)
[2018-06-01 08:49] LABS: HEMOGLOBIN 9.5 G/DL (14.2-18.0); MEAN CORPUSCULAR VOLUME 83 FL (80-99); PLATELET COUNT 210 K/UL (150-450); RED BLOOD COUNT 3.73 M/UL (4.70-6.10); RED CELL DISTRIBUTION WIDTH 17.5 % (11.6-14.8); WHITE BLOOD COUNT 20.7 K/UL (4.8-10.8)
[2018-06-01 09:16] VITALS: BP 124/77
[2018-06-01] MEDS: Metoprolol Succinate XL 25mg tab ORAL SCH (09:16)
[2018-06-01 12:00] VITALS: BP 127/77
--- NOTE | 2018-06-01 14:31 | NUR ---
RADIOLOGY DEPT CHEST X-RAY DONE. ATTEMPTED LATERAL VIEW PT COULD NOT STAND AND FELL BACK OF SUPPORT CHAIR.VINNIE
[2018-06-01 15:59] VITALS: BP 103/57
[2018-06-01] MEDS: Montelukast 10mg tablet ORAL SCH (16:13)
[2018-06-01] MEDS: Xarelto 10mg tab ORAL SCH (16:13)
--- NOTE | 2018-06-01 19:30 | NUR ---
NURSE NOTES: Received report from JENNIFER Alston. Patient A&Ox4, in bed. On nasal cannula 2L/min,.No signs of distress or labored breathing. IV intact, patent, and infusing antibiotics. Currently denies pain. Bed in lowest position with call light in reach.
--- NOTE | 2018-06-01 19:42 | NUR ---
HAND-OFF: Report given to JENNIFER Williamson.
[2018-06-01 20:00] VITALS: BP 97/58
[2018-06-01] MEDS: Tamsulosin 0.4mg cap ORAL SCH (22:00)
[2018-06-02] VITALS: BP 122/73
--- NOTE | 2018-06-02 03:15 | Progress Note ---
DATE: 06/01/2018 CARDIOLOGY PROGRESS NOTE SUBJECTIVE: The patient still has some cough and congestion, but is improved. He is on tapering doses of steroids. He has no chest pain. OBJECTIVE: VITAL SIGNS: Blood pressure 103/57, pulse 71, and respirations 18. LUNGS: Coarse breath sounds. Few rhonchi. HEART: Regular rhythm and rate. Normal S1, S2. ABDOMEN: Soft. EXTREMITIES: No edema. LABORATORY DATA: Labs notable for white count 20.7, hemoglobin 9.5. Potassium 4.1, BUN 33, creatinine 1.4. Albumin 2.4. IMPRESSION: 1. COPD exacerbation. 2. Healthcare-acquired pneumonia. 3. Paroxysmal atrial fibrillation. 4. Acute on chronic diastolic congestive heart failure. 5. Permanent pacemaker. 6. Low range of blood pressure today. 7. Severe protein-calorie malnutrition. 8. Functional decline. 9. Degenerative disk disease. PLAN: The patient is slowly improving. Elevated white count is likely due to steroids and they will be tapered. Antimicrobials continued. Antihypertensive dose decreased. Antiarrhythmic therapy continued. Discharge planning. Anticoagulation ongoing for cardioembolic prophylaxis. Phil Alves JOB#: [id number] CC:
[2018-06-02] MEDS: Vancomycin 750mg/NS 250ml 250 ML IVPB SCH ×2 (03:19→14:07)
[2018-06-02 04:00] VITALS: BP 152/78
[2018-06-02] MEDS: Piperacillin/Tazobactam 3.375 GM in D5W 110 ML IVPB SCH ×2 (05:52→13:05)
[2018-06-02] MEDS: HYDROcodone/Acetamin 10/325 tab ORAL PRN ×2 (06:04→14:11)
[2018-06-02 08:00] VITALS: BP 110/62
--- NOTE | 2018-06-02 08:01 | NUR ---
HAND-OFF: Report given to JENNIFER Obrien.
--- NOTE | 2018-06-02 08:11 | NUR ---
NURSE NOTES: received patient lying in bed, no respiratory distress noted, on nasal cannula 2L: O2/min, no complaint of pain or discomfort. Patient has right hand IV access, saline locked. Call light within easy reach, siderails upx2, bed locked at the lowest position possible. Will continue to monitor patient and follow up with the plan of care.
[2018-06-02] MEDS: Metoprolol Succinate XL 25mg tab ORAL SCH (09:00)
[2018-06-02] MEDS: Docusate 250mg cap ORAL SCH ×2 (09:00→09:22)
[2018-06-02] MEDS: Losartan 50mg tab ORAL SCH (09:00)
[2018-06-02] MEDS: Amiodarone 200mg tab ORAL SCH (09:22)
--- NOTE | 2018-06-02 10:42 | General Progress Note ---
Assessment/Plan Problem List: (1) COPD (chronic obstructive pulmonary disease) ICD Codes: J44.9 - Chronic obstructive pulmonary disease, unspecified SNOMED: 00530041 Qualifiers: Qualified Codes: J44.9 - Chronic obstructive pulmonary disease, unspecified (2) Sepsis ICD Codes: A41.9 - Sepsis, unspecified organism SNOMED: 92310831 Qualifiers: Qualified Codes: A41.9 - Sepsis, unspecified organism (3) Pneumonia ICD Codes: J18.9 - Pneumonia, unspecified organism SNOMED: 580138882 Qualifiers: Qualified Codes: J18.1 - Lobar pneumonia, unspecified organism (4) Elevated troponin ICD Codes: R74.8 - Elevated troponin SNOMED: 319105928 (5) Stroke ICD Codes: I63.9 - Cerebral infarction, unspecified SNOMED: 852613706 Status: stable Assessment/Plan cont iv abx follow up cultures resp rx po steroid taper follow labs- wbc pt/ot dc planning to snf Subjective ROS Limited/Unobtainable: No Constitutional: Reports: malaise, weakness HEENT: Reports: no symptoms Cardiovascular: Reports: no symptoms Respiratory: Reports: cough Gastrointestinal/Abdominal: Reports: no symptoms Genitourinary: Reports: no symptoms Neurologic/Psychiatric: Reports: pre-existing deficit Endocrine: Reports: no symptoms Hematologic/Lymphatic: Reports: no symptoms Allergies: Coded Allergies: No Known Allergies (Verified , 01/23/09) All Systems: reviewed and negative except above Subjective no complaints. eating breakfast. nontoxic. feels better. cxr- no change. wbc remains elevatred- ?due to steroids remains on iv abx. labs pending for today. Objective Last 24 Hour Vital Signs Date Time Temp Pulse Resp B/P (MAP) Pulse Ox O2 Delivery O2 Flow Rate FiO2 06/02/18 09:00 64 110/62 06/02/18 09:00 110/62 06/02/18 08:00 98.0 64 19 110/62 (78) 98 06/02/18 04:00 97.0 69 19 152/78 (102) 97 06/02/18 00:00 97.7 60 19 122/73 (89) 97 06/01/18 23:37 Nasal Cannula 2.0 28 06/01/18 23:37 Nasal Cannula 2.0 28 06/01/18 21:00 Nasal Cannula 2.0 06/01/18 20:22 64 18 98 Nasal Cannula 2.0 28 06/01/18 20:11 65 18 95 Nasal Cannula 2.0 28 06/01/18 20:11 Nasal Cannula 2.0 28 06/01/18 20:11 95 Nasal Cannula 2.0 28 06/01/18 20:00 97.9 65 19 97/58 (71) 97 06/01/18 16:21 96 06/01/18 15:59 97.8 71 18 103/57 (72) 90 06/01/18 15:30 68 18 97 Nasal Cannula 2.0 28 06/01/18 15:18 67 16 90 Room Air 21 06/01/18 13:42 98.1 06/01/18 12:53 98.1 06/01/18 12:00 98.3 67 18 127/77 (94) 98 06/01/18 11:40 70 19 99 Nasal Cannula 2.0 28 06/01/18 11:27 68 18 97 Nasal Cannula 2.0 28 Intake and Output 06/01/18 06/02/18 18:59 06:59 Intake Total 442.50 ml 693.334 ml Output Total 1000 ml Balance 442.50 ml -306.666 ml Intake Oral 250 ml IV Total 442.50 ml 443.334 ml Output Urine Total 1000 ml # Voids 6 # Bowel Movements 2 3 Laboratory Tests 06/02/18 10:30: White Blood Count [Pending], Red Blood Count [Pending], Hemoglobin [Pending], Hematocrit [Pending], Mean Corpuscular Volume [Pending], Mean Corpuscular Hemoglobin [Pending], Mean Corpuscular Hemoglobin Concent [Pending], Red Cell Distribution Width [Pending], Platelet Count [Pending], Mean Platelet Volume [ Pending], Neutrophils (%) (Auto) [Pending], Lymphocytes (%) (Auto) [Pending], Monocytes (%) (Auto) [Pending], Eosinophils (%) (Auto) [Pending], Basophils (%) (Auto) [Pending], Sodium Level [Pending], Potassium Level [Pending], Chloride Level [Pending], Carbon Dioxide Level [Pending], Blood Urea Nitrogen [Pending], Creatinine [Pending], Estimat Glomerular Filtration Rate [Pending], Glucose Level [Pending], Calcium Level [Pending], Magnesium Level [Pending], Pro-B-Type Natriuretic Peptide [Pending] Height (Feet): 6 Height (Inches): 2.00 Weight (Pounds): 223 Objective General Appearance: WD/WN, alert EENT: normal ENT inspection Neck: supple Cardiovascular: regular rhythm Respiratory/Chest: chest wall non-tender, rhonchi - bilaterally Abdomen: normal bowel sounds, non tender, soft, no organomegaly Edema: no edema noted Arm (L), no edema noted Arm (R), no edema noted Leg (L), no edema noted Leg (R), no edema noted Pedal (L), no edema noted Pedal (R), no edema noted 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
[2018-06-02 10:52] LABS: BASOPHILS % (AUTO) 0.4 % (0.0-2.0); EOSINOPHILS % (AUTO) 2.1 % (0.0-3.0); HEMATOCRIT 29.7 % (42.0-52.0); LYMPHOCYTES % (AUTO) 8.4 % (20.0-45.0); MEAN CORPUSCULAR VOLUME 83 FL (80-99); MONOCYTES % (AUTO) 6.4 % (1.0-10.0); NEUTROPHILS % (AUTO) 82.7 % (45.0-75.0); PLATELET COUNT 209 K/UL (150-450); RED BLOOD COUNT 3.57 M/UL (4.70-6.10); RED CELL DISTRIBUTION WIDTH 17.7 % (11.6-14.8); WHITE BLOOD COUNT 16.8 K/UL (4.8-10.8)
[2018-06-02 10:57] LABS: ANION GAP 3 mmol/L (5-15); BLOOD UREA NITROGEN 26 mg/dL (7-18); CALCIUM 10.3 MG/DL (8.5-10.1); CARBON DIOXIDE 32 MMOL/L (21-32); CHLORIDE 104 MMOL/L (98-107); CREATININE 1.2 MG/DL (0.55-1.30); POTASSIUM 3.8 MMOL/L (3.5-5.1); SODIUM 138 MMOL/L (136-145)
[2018-06-02 12:00] VITALS: BP 117/80
[2018-06-02] MEDS ORDERED: Tubing IV Secondary IV ONE ×2 (13:36→16:39)
[2018-06-02] MEDS ORDERED: NS 275ml ONE (13:36)
[2018-06-02] MEDS ORDERED: Lactobacillus-GG tablet ORAL SCH (14:45)
--- NOTE | 2018-06-02 15:16 | NUR ---
*-* DISCHARGE PLANNED *-* PATIENT IS DISCHARGED TO: [facility] ROOM# 11-C SKILLED T:[phone] FOR NURSE TO NURSE REPORT [facility] HAS BEEN ARRANGED FOR [facility] AT 1615 S/[address]I [id number] Addendum: 06/02/18 at 1611 by RENATO SALAS CM SPOKE TO PATIENT DAUGHTER KAI LANTIGUA INFORMED HER PATIENT WOULD BE DISCHARGE TODAY TO [facility]. ALSO LEFT A VOICEMAIL FOR HIS SPOUSE JAIR YOUNG ALSO TO LET HER KNOW PATIENT WILL D/C TODAY
[2018-06-02] MEDS: Xarelto 10mg tab ORAL SCH (15:47)
[2018-06-02] MEDS: Montelukast 10mg tablet ORAL SCH (15:47)
[2018-06-02 16:00] VITALS: BP 104/62
--- NOTE | 2018-06-02 16:45 | NUR ---
NURSE NOTES: patient has been discharged to [facility], report given to JENNIFER Marin from the facility. Patient has signed the belongings list and left with all his belongings. Taken IV access off, no bleeding noted after site compression. Notified Lauren regarding the discharge and transfer to [facility]. Patient left with [facility], given discharge packet and report. Patient left in stable condition and VVSS, nocomplaint of pain or discomfort, left with 2L O2/min nasal cannula.
[2018-06-02] MEDS ORDERED: Augmentin 875mg Tab ORAL SCH (21:00)
--- NOTE | 2018-06-03 13:00 | Progress Note ---
DATE: 06/02/2018 CARDIOLOGY PROGRESS NOTE SUBJECTIVE: The patient feels better with regard to shortness of breath and congestion. He is able to mobilize with assist. Chest x-ray was not able to be performed due to his back pain. OBJECTIVE: VITAL SIGNS: Blood pressure 104/62, pulse 62, and respiratory rate 19. LUNGS: Coarse breath sounds. HEART: Regular rhythm and rate. Normal S1, S2. ABDOMEN: Soft. EXTREMITIES: No edema. LABORATORY DATA: White count 16.8, hemoglobin 9. Potassium 3.8, BUN 26, creatinine 1.2. Pro natriuretic peptide has decreased to 700. IMPRESSION: Significant improvement in cardiopulmonary parameters. PLAN: Transition from IV to oral antimicrobials. Continue steroid taper. Transition from IV to oral maintenance dose diuretic. Titrate antihypertensive. [facility]red [facility] for [facility] prior to returning home. Yvan Encarnacion M.D. DR: SAMMIE JOB#: [id number] CC:
== END 2018-06-02 16:40 | DRG 871 ==
LOC: EDBEDREQ 15:55 → EMR 16:19 → 2E 16:23 → EDBEDREQ 17:25 → 2E 18:33 → 4E 05-31 13:00
DX: A41.9 Sepsis, unspecified organism (principal); J18.9 Pneumonia, unspecified organism; I50.33 Acute on chronic diastolic (congestive) heart failure; E43 Unspecified severe protein-calorie malnutrition; J44.0 Chronic obstructive pulmonary disease with (acute) lower respiratory infection; J44.1 Chronic obstructive pulmonary disease with (acute) exacerbation; N17.9 Acute kidney failure, unspecified; I13.0 Hypertensive heart and chronic kidney disease with heart failure and stage 1 through stage 4 chronic kidney disease, or unspecified chronic kidney disease; R65.20 Severe sepsis without septic shock; I48.0 Paroxysmal atrial fibrillation; Z95.0 Presence of cardiac pacemaker; R26.81 Unsteadiness on feet; R74.8 Abnormal levels of other serum enzymes; I25.10 Atherosclerotic heart disease of native coronary artery without angina pectoris; E78.5 Hyperlipidemia, unspecified; Z87.891 Personal history of nicotine dependence; I51.3 Intracardiac thrombosis, not elsewhere classified; D63.8 Anemia in other chronic diseases classified elsewhere; E87.6 Hypokalemia; Z86.73 Personal history of transient ischemic attack (TIA), and cerebral infarction without residual deficits; N18.9 Chronic kidney disease, unspecified; M19.90 Unspecified osteoarthritis, unspecified site; N40.0 Benign prostatic hyperplasia without lower urinary tract symptoms; K57.90 Diverticulosis of intestine, part unspecified, without perforation or abscess without bleeding; M51.16 Intervertebral disc disorders with radiculopathy, lumbar region
CPT/HCPCS: 36415; 71045; 80048; 80053; 80202; 81003; 82248; 82550; 82553; 83605; 83735; 83880; 84443; 84484; 85007; 85025; 86710; 87040; 93005; 94640; 94644; 94664; 94760; 96361; 96365; 96368; 96375; 99285; J7620; J8499

== ENCOUNTER 2018-10-31 12:18 | Inpatient (IN) | payer MEDICARE, OTHER ==
[~2018-10-31] VITALS: Ht 188 cm; Wt 98.0 kg
[~2018-10-31 12:18] MED LIST changes: +ASPIRIN EC325 MG ORAL; +TAMSULOSIN HCL0.4 MG ORAL; +ZOLPIDEM TARTRA10 MG ORAL
[2018-10-31 18:35] VITALS: BP 123/70
--- NOTE | 2018-10-31 19:01 | NUR ---
NURSE NOTES: Patient arrived the floor by wheelchair, accompanied by transporter and his . Patient alert timesx4, on room air, no sign of distress and shortness of breath; no sign of chest pain. Belonging lists noted and singed by patient and RN at the bed side. Vitals taken upon arrival of the unit. T 98.6, BP 123/70, P 64 O2 92% R 16 No pain. Bed at lowest position, side rails up x2, breaks engaged. Call light within reach. Will keep monitoring.
--- NOTE | 2018-10-31 19:41 | NUR ---
HAND-OFF: Report given to JENNIFER Beauchamp.
[2018-10-31] MEDS ORDERED: PROSCAR5 MG ORAL (20:34)
[2018-10-31] MEDS ORDERED: PREDNISONE10 MG ORAL (20:34)
[2018-10-31] MEDS ORDERED: BREO ELLIPTA 11 EACH IH (20:34)
[2018-10-31] MEDS ORDERED: AMIODARONE HCL200 MG ORAL (20:34)
[2018-10-31] MEDS ORDERED: ASPIR 8181 MG ORAL (20:34)
[2018-10-31 20:38] VITALS: BP 101/63
--- NOTE | 2018-10-31 20:55 | NUR ---
NURSE NOTES: PATIENT IS A DIRECT ADMIT FROM HOME. PATIENT IN BED, AOX4. AT BEDSIDE. BROUGHT PATIENT'S MEDICATIONS, WILL TAKE HOME AFTER NURSE HAS WRITTEN DOWN MEDICATIONS. PATIENT DENIES FEELING SHORTNESS OF BREATH OR PAIN AT THIS TIME. BELONGINGS LIST WAS DONE BY PREVIOUS AM NURSE, JENNIFER QUILES. NO S/S DISTRESS NOTED. NOTED TO HAVE OPEN WOUND, PINK, NEAR SACRAL/RIGHT BUTTOCKS AREA, WCP TAKEN AND DRESSING DONE. WILL CONTINUE TO MONITOR.
[2018-10-31] MEDS ORDERED: Albuterol/Ipratropium 3ml neb HHN PRN (21:00)
--- NOTE | 2018-10-31 21:10 | NUR ---
NURSE NOTES: CALLED AND RECEIVED ADMISSION ORDERS FROM DR. JEAN.
[2018-10-31] MEDS: HYDROcodone/Acetamin 10/325 tab ORAL PRN (22:23)
--- NOTE | 2018-10-31 23:00 | NUR ---
NURSE NOTES: NEW IV ACCESS RIGHT ANTECUBITAL 20 GAUGE, INTACT AND PATENT.
[2018-10-31] MEDS: cefTRIAXone 1 GM in D5W 55 ML IVPB SCH (23:07)
[2018-11-01 00:18] VITALS: BP 117/70
[2018-11-01] MEDS: Solu-MEDROL 40mg Inj IVP SCH ×3 (02:23→20:25)
--- NOTE | 2018-11-01 03:11 | NUR ---
NURSE NOTES: PATIENT MADE AWARE OF NEED FOR SPUTUM CULTURE AND URINE SPECIMEN.
[2018-11-01 04:36] VITALS: BP 102/65
[2018-11-01 06:58] LABS: APPEARANCE,URINE SLIGHTLY CLOUDY; BILIRUBIN, URINE NEGATIVE (NEGATIVE); GLUCOSE, URINE (UA) NEGATIVE (NEGATIVE); KETONES,URINE NEGATIVE (NEGATIVE); LEUKOCYTE ESTERASE ,URINE 2+ (NEGATIVE); NITRITE,URINE NEGATIVE (NEGATIVE); PH,URINE 6.5 (4.5-8.0); PROTEIN,URINE 2+ (NEGATIVE); UROBILINOGEN,URINE 4 MG/DL (0.0-1.0)
[2018-11-01 07:01] LABS: COLOR,URINE YELLOW
--- NOTE | 2018-11-01 07:14 | NUR ---
HAND-OFF: Report given to ETTA KANG RN.
--- NOTE | 2018-11-01 07:28 | NUR ---
NURSE NOTES: Patient awake, alert x4; on room air, no sign of distress and shortness of breath; no sing of chest pain; IV Right AC flushes well; bed at lowest position, side rails up x2, breaks engaged, bed al; call light within reach. will keep monitoring.
[2018-11-01 07:38] LABS: HEMATOCRIT 25.7 % (42.0-52.0); HEMOGLOBIN 7.6 G/DL (14.2-18.0); MEAN CORPUSCULAR VOLUME 71 FL (80-99); PLATELET COUNT 228 K/UL (150-450); RED BLOOD COUNT 3.61 M/UL (4.70-6.10); WHITE BLOOD COUNT 9.6 K/UL (4.8-10.8)
[2018-11-01 08:00] VITALS: BP 109/68
[2018-11-01 08:14] LABS: ALANINE AMINOTRANSFERASE 19 U/L (12-78); ALBUMIN 2.5 G/DL (3.4-5.0); ALBUMIN/GLOBULIN RATIO 0.5 (1.0-2.7); ALKALINE PHOSPHATASE 44 U/L (46-116); ANION GAP 9 mmol/L (5-15); ASPARTATE AMINO TRANSFERASE 16 U/L (15-37); BILIRUBIN,TOTAL 0.7 MG/DL (0.2-1.0); BLOOD UREA NITROGEN 23 mg/dL (7-18); CALCIUM 10.5 MG/DL (8.5-10.1); CARBON DIOXIDE 27 MMOL/L (21-32); CHLORIDE 109 MMOL/L (98-107); CREATININE 1.3 MG/DL (0.55-1.30); POTASSIUM 4.5 MMOL/L (3.5-5.1); SODIUM 144 MMOL/L (136-145)
[2018-11-01] MEDS: Metoprolol Succinate XL 25mg tab ORAL SCH (08:51)
[2018-11-01] MEDS: Amiodarone 200mg tab ORAL SCH (08:51)
[2018-11-01] MEDS: Breo Ellipta 100/25mcg - 14 dose INH SCH (08:51)
[2018-11-01] MEDS: Losartan 50mg tab ORAL SCH (08:52)
[2018-11-01] MEDS ORDERED: Aspirin EC 81mg tab ORAL SCH (09:00)
--- NOTE | 2018-11-01 09:29 | Diagnostic Imaging Report ---
Indication: Shortness of breath Technique: One view of the chest Comparison: 05/28/2018 Findings: There is interstitial and airspace disease in the right mid and lower lung. This is more extensive than seen on the prior study. The left lung is probably clear. The heart is enlarged. There is a left chest bifocal pacemaker. Prosthetic heart valve and left atrial appendage clip are noted. Impression: Right mid and lower lung interstitial and airspace disease, likely pneumonia but interstitial edema from congestive heart failure also possible Other findings as noted
--- NOTE | 2018-11-01 10:05 | NUR ---
NURSE NOTES: Patient ambulates with assist, MD Encarnacion ordered ambulation for DVT Prophylaxis.
--- NOTE | 2018-11-01 11:45 | NUR ---
RADIOLOGY DEPT., CHEST X-RAY DONE.-P.DYE
[2018-11-01 12:00] VITALS: BP 115/70
[2018-11-01] MEDS ORDERED: Albuterol/Ipratropium 3ml neb HHN SCH (13:30)
[2018-11-01 14:13] LABS: HEMATOCRIT 27.1 % (42.0-52.0); HEMOGLOBIN 7.8 G/DL (14.2-18.0); MEAN CORPUSCULAR VOLUME 72 FL (80-99); PLATELET COUNT 249 K/UL (150-450); RED BLOOD COUNT 3.78 M/UL (4.70-6.10); RED CELL DISTRIBUTION WIDTH 21.1 % (11.6-14.8)
--- NOTE | 2018-11-01 14:45 | NUR ---
NURSE NOTES: MD Encarnacion ordered blood transfusion for patient. Patient stated that his a [employer] and doesn't accept blood transfusion. I call MD Encarnacion office and I was told that MD Encarnacion will call back. Waiting call back.
--- NOTE | 2018-11-01 14:59 | NUR ---
NURSE NOTES: MD Encarnacion asked if I got a call from lab regarding patient's hemoglobin which is 7.6. I told MD that I didn't received any call regarding patient's hemoglobin. MD Encarnacion stated that I should write incident report on the terrazzo laborer, with the hemoglobin of 7.6. I ask charge nurseTahir what I need to do, CN said called to nursing room service supervisor. I called NSP Sarah and asked what I need to do, NSP said call lab and find out the parameters of the hemoglobin and if the hemoglobin of the patient doesn't follow on the parameter to call and let MD Encarnacion know. Charge nurseTahir called lab and terrazzo laborer said any hemoglobin less than 6 should be notified to nurse. I called MD Encarnacion office to let him know the parameters of the lab. Waiting call back.
[2018-11-01] MEDS: Albuterol/Ipratropium 3ml neb HHN SCH ×3 (15:00→23:00)
--- NOTE | 2018-11-01 15:10 | NUR ---
NURSE NOTES: Sputum culture sent to lab; waiting for result.
[2018-11-01] MEDS: HYDROcodone/Acetamin 10/325 tab ORAL PRN ×2 (15:11→20:26)
--- NOTE | 2018-11-01 15:37 | NUR ---
CASE MANAGEMENT:REVIEW DIRECTLY ADMITTED FROM HOME SI: COPD. MALNUTRITION 98.6 64 16 123/70 92% ON RA H/H-7.6/25.7 IS: TRANSFUSE 1 UNIT PRBC'S IV ROCEPHIN Q24 IV SOLUMEDROL Q12 CXR URINE CX SPUTUM CX : DIRECTLY ADMITTED TO [facility]
--- NOTE | 2018-11-01 15:37 | Consultation ---
History of Present Illness Present Illness HPI This is a very pleasant 83 year old male who presented to [facility] for care and management. Patient states he was doing well recently and on admission was noted to have anemia as well as abnormal labs. On admission also noted to have forming sacral decubitus ulcer. States he had known something was forming in the sacral area but was unsure what. no n/v/f/c. surgery called to evaluate and assist with care. patient seen, chart reviewed, patient examined. Allergies: Coded Allergies: No Known Allergies (Verified , 01/23/09) Medication History Scheduled Amiodarone Hcl* (Cordarone*), 200 MG ORAL DAILY, (Reported) Amlodipine Besylate* (Amlodipine Besylate*), 5 MG ORAL DAILY, (Reported) Aspirin* (Aspir 81*), 81 MG ORAL DAILY, (Reported) Ergocalciferol (Vitamin D2) (Vitamin D2), 50,000 UNIT PO ONCE A WEEK, (Reported) Finasteride* (Proscar*), 5 MG ORAL DAILY, (Reported) Losartan Potassium (Losartan Potassium), 100 MG PO DAILY, (Reported) Metoprolol Succinate* (Metoprolol Succinate*), 25 MG PO DAILY, (Reported) Prednisone* (Prednisone*), 5 MG ORAL DAILY, (Reported) Rosuvastatin Calcium (Crestor), 10 MG ORAL DAILY, (Reported) Scheduled PRN Fluticasone/Vilanterol (Breo Ellipta 100-25 Mcg INH), 1 EACH IH DAILY PRN for Shortness of Breath, (Reported) Hydrocodone Bit/Acetaminophen 10-325* (Hydrocodon-Acetaminophn 10-325*), 1 TAB ORAL BID PRN for For Pain, (Reported) Ipratropium/Albuterol Sulfate (Combivent Respimat Inhal [place]), 4 GM IH for Shortness of Breath, (Reported) Temazepam* (Temazepam*), 15 MG ORAL BEDTIME PRN for Insomnia, (Reported) Discontinued Medications Amiodarone Hcl* (Amiodarone Hcl*), 200 MG ORAL DAILY, (Reported) Discontinued Reason: Medication dose changed Aspirin* (Aspirin Ec*), 325 MG ORAL, (Reported) Discontinued Reason: Medication dose changed Docusate Sodium (Dok), 250 MG PO DAILY, (Reported) Discontinued Reason: Pt stopped taking med Dutasteride (Avodart), 0.5 MG ORAL DAILY, (Reported) Discontinued Reason: Pt stopped taking med Finasteride (Finasteride), 5 MG PO DAILY, (Reported) Discontinued Reason: Medication dose changed Furosemide* (Lasix*), 20 MG PO DAILY, (Reported) Discontinued Reason: Pt stopped taking med Gabapentin* (Gabapentin*), 300 MG ORAL THREE TIMES A DAY, (Reported) Discontinued Reason: Pt stopped taking med Montelukast Sodium* (Montelukast Sodium*), 10 MG ORAL DAILY, (Reported) Discontinued Reason: Pt stopped taking med Nitroglycerin (Nitrostat), 0.4 MG SL, (Reported) Discontinued Reason: Pt stopped taking med Prednisone (Prednisone), 10 MG PO DAILY, (Reported) Discontinued Reason: Medication dose changed Prednisone (Prednisone), 10 MG PO DAILY, (Reported) Discontinued Reason: Medication dose changed Prednisone (Prednisone), 10 MG PO, (Reported) Discontinued Reason: Medication dose changed Pregabalin (Lyrica), 100 MG ORAL BID, (Reported) Discontinued Reason: Pt stopped taking med Rivaroxaban (Xarelto*), 20 MG ORAL DAILY Discontinued Reason: Pt stopped taking med Tamsulosin Hcl (Tamsulosin Hcl*), 0.4 MG ORAL, (Reported) Discontinued Reason: Pt stopped taking med Zolpidem Tartrate* (Zolpidem Tartrate*), 10 MG ORAL BEDTIME PRN for Insomnia, ( Reported) Discontinued Reason: Pt stopped taking med Patient History History Provided By: Patient, Medical Record, PMD Healthcare decision maker Resuscitation status Advanced Directive on File Past Medical/Surgical History Past Medical/Surgical History: (1) Chronic obstructive pulmonary disease (2) Elevated troponin (3) UTI (lower urinary tract infection) (4) Acute exacerbation of CHF (congestive heart failure) (5) UTI (lower urinary tract infection) (6) Atrial fibrillation (7) CHF (congestive heart failure) (8) Orthopnea (9) Dyspnea on exertion (10) Swelling of lower extremity (11) Generalized ischemic cerebrovascular disease (12) acute onset left [place] pulsy. (13) Hemoptysis (14) Stroke (15) COPD exacerbation (16) Acute exacerbation of CHF (congestive heart failure) (17) Epistaxis Review of Systems Review of Symptoms General ROS: no weight loss or fever Psychological ROS: no depression or mood changes, no memory loss Ophthalmic ROS: no visual changes or eye irritation ENT ROS: no nasal congestion, hearing loss, dizziness Allergy and Immunology ROS: no allergic symptoms or urticaria Hematological and Lymphatic ROS: no swollen glands, unusual bleeding or bruising Endocrine ROS: no polyuria, polydipsia, weight changes, temperature intolerance Respiratory ROS: no cough, shortness of breath, or wheezing Cardiovascular ROS: no chest pain or dyspnea on exertion Gastrointestinal ROS: denies abdominal pain, no right red blood in stool. Musculoskeletal ROS: no myalgias or arthralgias Neurological ROS: no TIA or stroke symptoms Dermatological ROS: no new or changing skin lesions, rashes or pruritis Physical Exam Physical Exam General appearance: alert, cooperative, no distress, appears stated age Head: Normocephalic, without obvious abnormality, atraumatic Eyes: conjunctivae/corneas clear. PERRL, EOM's intact. Fundi benign Throat: Lips, mucosa, and tongue normal. Teeth and gums normal Neck: supple, symmetrical, trachea midline, no adenopathy, thyroid: not enlarged, symmetric, no tenderness/mass/nodules, no carotid bruit and no JVD Lungs: clear to auscultation bilaterally Heart: regular rate and rhythm, S1, S2 normal, no murmur, click, rub or gallop Abdomen: soft, non-tender. Bowel sounds normal. No masses, no organomegaly Extremities: extremities normal, atraumatic, no cyanosis or edema Pulses: 2+ and symmetric Skin: Skin color, texture, turgor normal. No rashes or lesions Neurologic: Grossly normal Last 24 Hour Vital Signs Date Time Temp Pulse Resp B/P (MAP) Pulse Ox O2 Delivery O2 Flow Rate FiO2 11/01/18 15:31 Room Air 11/01/18 15:31 Room Air 11/01/18 14:06 60 20 96 Room Air 11/01/18 13:54 60 22 92 Room Air 11/01/18 12:00 98.1 89 18 115/70 (85) 97 11/01/18 09:00 Room Air 11/01/18 08:53 60 17 100 Room Air 11/01/18 08:52 109/68 11/01/18 08:51 60 17 100 Room Air 11/01/18 08:51 93 109/68 11/01/18 08:51 93 109/68 11/01/18 08:50 60 17 100 Room Air 21 11/01/18 08:00 97.9 93 18 109/68 (82) 96 11/01/18 04:36 97.8 61 18 102/65 (77) 94 11/01/18 00:18 98.4 83 18 117/70 (86) 92 10/31/18 22:53 98.2 10/31/18 20:38 98.2 62 18 101/63 (76) 93 10/31/18 20:00 Room Air 10/31/18 18:35 98.6 64 16 123/70 (87) 92 Intake and Output 10/31/18 11/01/18 18:59 06:59 Intake Total 55 ml Output Total 425 ml Balance -370 ml Intake IV Total 55 ml Output Urine Total 425 ml Laboratory Tests Test 11/01/18 04:16 11/01/18 06:06 11/01/18 13:49 Urine Color Yellow Urine Appearance Slightly cloudy Urine pH 6.5 (4.5-8.0) Urine Specific [place] 1.005 (1.005-1.035) Urine Protein 2+ (NEGATIVE) H Urine Glucose (UA) Negative (NEGATIVE) Urine Ketones Negative (NEGATIVE) Urine Blood Negative (NEGATIVE) Urine Nitrite Negative (NEGATIVE) Urine Bilirubin Negative (NEGATIVE) Urine Urobilinogen 4 MG/DL (0.0-1.0) H Urine Leukocyte Esterase 2+ (NEGATIVE) H Urine RBC 2-4 /HPF (0 - 0) H Urine WBC 5-10 /HPF (0 - 0) H Urine Squamous Epithelial Cells Occasional /LPF Urine Amorphous Sediment Moderate /LPF (NONE) H Urine Bacteria Many /HPF (NONE) H White Blood Count 9.6 K/UL (4.8-10.8) 7.0 K/UL (4.8-10.8) Red Blood Count 3.61 M/UL (4.70-6.10) L 3.78 M/UL (4.70-6.10) L Hemoglobin 7.6 G/DL (14.2-18.0) L 7.8 G/DL (14.2-18.0) L Hematocrit 25.7 % (42.0-52.0) L 27.1 % (42.0-52.0) L Mean Corpuscular Volume 71 FL (80-99) L 72 FL (80-99) L Mean Corpuscular Hemoglobin 21.0 PG (27.0-31.0) L 20.7 PG (27.0-31.0) L Mean Corpuscular Hemoglobin Concent 29.4 G/DL (32.0-36.0) L 28.9 G/DL (32.0-36.0) L Red Cell Distribution Width 21.0 % (11.6-14.8) H 21.1 % (11.6-14.8) H Platelet Count 228 K/UL (150-450) 249 K/UL (150-450) Mean Platelet Volume 6.8 FL (6.5-10.1) 6.1 FL (6.5-10.1) L Neutrophils (%) (Auto) % (45.0-75.0) % (45.0-75.0) Lymphocytes (%) (Auto) % (20.0-45.0) % (20.0-45.0) Monocytes (%) (Auto) % (1.0-10.0) % (1.0-10.0) Eosinophils (%) (Auto) % (0.0-3.0) % (0.0-3.0) Basophils (%) (Auto) % (0.0-2.0) % (0.0-2.0) Differential Total Cells Counted 100 100 Neutrophils % (Manual) 96 % (45-75) H 98 % (45-75) H Lymphocytes % (Manual) 2 % (20-45) L 1 % (20-45) L Monocytes % (Manual) 1 % (1-10) 1 % (1-10) Eosinophils % (Manual) 1 % (0-3) 0 % (0-3) Basophils % (Manual) 0 % (0-2) 0 % (0-2) Band Neutrophils 0 % (0-8) 0 % (0-8) Platelet Estimate Adequate Adequate Platelet Morphology Normal Normal Polychromasia 1+ Hypochromasia 1+ Anisocytosis 2+ 2+ Macrocytosis 1+ Acanthocytes 1+ 1+ Schistocytes 1+ Sodium Level 144 MMOL/L (136-145) Potassium Level 4.5 MMOL/L (3.5-5.1) Chloride Level 109 MMOL/L (98-107) H Carbon Dioxide Level 27 MMOL/L (21-32) Anion Gap 9 mmol/L (5-15) Blood Urea Nitrogen 23 mg/dL (7-18) H Creatinine 1.3 MG/DL (0.55-1.30) Estimat Glomerular Filtration Rate mL/min (>60) Glucose Level 125 MG/DL (74-106) H Calcium Level 10.5 MG/DL (8.5-10.1) H Magnesium Level 1.8 MG/DL (1.8-2.4) Total Bilirubin 0.7 MG/DL (0.2-1.0) Aspartate Amino Transf (AST/SGOT) 16 U/L (15-37) Alanine Aminotransferase (ALT/SGPT) 19 U/L (12-78) Alkaline Phosphatase 44 U/L (46-116) L Pro-B-Type Natriuretic Peptide 1425 pg/mL (0-125) H Total Protein 7.2 G/DL (6.4-8.2) Albumin 2.5 G/DL (3.4-5.0) L Globulin 4.7 g/dL Albumin/Globulin Ratio 0.5 (1.0-2.7) L Nucleated Red Blood Cells 4 /100 WBC Height (Feet): 6 Height (Inches): 2.00 Weight (Pounds): 216 Medications Current Medications Medications (Trade) Dose Ordered Sig/Susie Route PRN Reason Start Time Stop Time Status Last Admin Dose Admin Acetaminophen/ Hydrocodone Bitart ([place] 10/325) 1 tab BIDPRN PRN ORAL For Pain 10/31/18 21:00 11/07/18 20:59 11/01/18 15:11 Albuterol/ Ipratropium (Albuterol/ Ipratropium) 3 ml Q4HRT HHN 11/01/18 15:00 11/06/18 14:59 Amiodarone HCl (Cordarone) 200 mg DAILY ORAL 11/01/18 09:00 12/01/18 08:59 11/01/18 08:51 Amlodipine Besylate (Norvasc) 5 mg DAILY ORAL 11/01/18 09:00 12/01/18 08:59 11/01/18 08:51 Atorvastatin Calcium (Lipitor) 20 mg BEDTIME ORAL 11/01/18 21:00 12/01/18 20:59 Ceftriaxone Sodium 1 gm/ Dextrose 55 ml @ 110 mls/hr Q24H IVPB 10/31/18 22:00 11/07/18 21:59 10/31/18 23:07 Ergocalciferol (Drisdol) 50,000 intlu QWEEK ORAL 11/03/18 09:00 12/03/18 08:59 Finasteride (Proscar) 5 mg DAILY ORAL 11/01/18 09:00 12/01/18 08:59 11/01/18 08:51 Fluticasone/ Vilanterol (Breo Ellipta 100/25) 1 puff DAILY INH 11/01/18 09:00 12/01/18 08:59 11/01/18 08:51 Furosemide (Lasix) 40 mg ONCE ONCE IV 11/01/18 13:30 11/01/18 13:31 UNV Losartan Potassium (Cozaar) 100 mg DAILY ORAL 11/01/18 09:00 12/01/18 08:59 11/01/18 08:52 Methylprednisolone Sodium Succinate (Solu-MEDROL) 40 mg EVERY 12 HOURS IVP 11/01/18 01:45 12/01/18 01:44 11/01/18 08:52 Metoprolol Succinate (Toprol XL) 25 mg DAILY ORAL 11/01/18 09:00 12/01/18 08:59 11/01/18 08:51 Temazepam (Restoril) 15 mg HSPRN PRN ORAL Insomnia 10/31/18 21:30 11/07/18 21:29 Assessment/Plan Problem List: (1) Chronic obstructive pulmonary disease ICD Codes: J44.9 - Chronic obstructive pulmonary disease, unspecified SNOMED: 06362783 (2) Elevated troponin ICD Codes: R74.8 - Elevated troponin SNOMED: 615456690 (3) UTI (lower urinary tract infection) ICD Codes: N39.0 - Urinary tract infection, site not specified SNOMED: 3586413 (4) Acute exacerbation of CHF (congestive heart failure) ICD Codes: I50.9 - Heart failure, unspecified SNOMED: 18683990 (5) UTI (lower urinary tract infection) ICD Codes: N39.0 - Urinary tract infection, site not specified SNOMED: 0908539 (6) Atrial fibrillation ICD Codes: I48.91 - Atrial fibrillation SNOMED: 63238445 (7) CHF (congestive heart failure) ICD Codes: I50.9 - CHF (congestive heart failure) SNOMED: 74245040 (8) Orthopnea (9) Dyspnea on exertion (10) Swelling of lower extremity ICD Codes: M79.89 - Other specified soft tissue disorders SNOMED: 019752888, 334522503 (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 (13) Hemoptysis ICD Codes: R04.2 - Hemoptysis SNOMED: 05519771 (14) Stroke ICD Codes: I63.9 - Cerebral infarction, unspecified SNOMED: 729655408 (15) COPD exacerbation ICD Codes: J44.1 - Chronic obstructive pulmonary disease with (acute) exacerbation SNOMED: 485741062 (16) Acute exacerbation of CHF (congestive heart failure) (17) Epistaxis ICD Codes: R04.0 - Epistaxis SNOMED: 166489145 (18) Sacral decubitus ulcer Assessment & Plan: This is a very pleasant 83 year old male who presented with full thickness sacral decubitus ulcer. Seems to have been a DTPI prior which has opened up. Patient states he knew something was forming in the area but unsure what. 4cm x 3cm area of partial thickness epidermal skin loss and small area of central full thickness with opening. mehrdad wound okay. serous drainage. some stool soilage. Tx plan: discussed findings with patient. patient understands that this is a pressure injury. he is able to participate in exam and understands needs to off load pressure turn q2h air mattress ambulate as much as possible wash wound daily with NS, apply therahoney and foam dressing daily and prn will monitor while in hospital thank you ICD Codes: L89.159 - Pressure ulcer of sacral region, unspecified stage SNOMED: 485092200 Erlin Kearns Nov 01, 2018 15:37
[2018-11-01 16:00] VITALS: BP 119/74
--- NOTE | 2018-11-01 16:09 | NUR ---
NURSE NOTES: MD Encarnacion is aware that patient refused blood transfusion, also the parameter for hearing aide technician to notify nurse for Hemoglobin result is 6 and less.
--- NOTE | 2018-11-01 16:20 | NUR ---
NURSE NOTES: I called MD Encarnacion to get clarification on Lasix 40 MG order, which MD ordered it to be given after blood transfusion. However patient already refused blood transfusion and I want to find out if MD wants the patient to get Lasix or to discontinue the order. Waiting call back.
--- NOTE | 2018-11-01 16:53 | NUR ---
NURSE NOTES: Patient left the floor for CT of the head.
--- NOTE | 2018-11-01 17:12 | Diagnostic Imaging Report ---
Indications: Pain, status post fall Technique: Spiral acquisitions obtained through the brain. Angled axial and coronal 5 x 5 mm slices were reconstructed. Total dose length product 1390.16 mGycm. CTDI vol(s) 70.38 mGy. Dose reduction achieved using automated exposure control Comparison: None. Findings: There is minimal age-related enlargement of the ventricles and extra-axial CSF spaces there is minimal periventricular deep white matter low-attenuation, consistent with chronic microvascular ischemic change. No acute intracranial hemorrhage nor edema, mass effect, nor midline shift. Normal hamilton-white differentiation. 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 The orbits are unremarkable except for evidence of prior bilateral cataract surgery. The mastoids are clear. The sinuses are clear.. 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
--- NOTE | 2018-11-01 17:43 | NUR ---
NURSE NOTES: Second attempt regarding clarification on the Lasix 40MG order. I left my name, call back number and a brief message regarding my call. Waiting for call.
[2018-11-01] MEDS ORDERED: COMBIVENT RESPIM4 GM IH (19:43)
--- NOTE | 2018-11-01 19:52 | NUR ---
NURSE NOTES: Patients visitor gave me a paper saying that NO BLOOD TRANSFUSION for this patient. I asked the charge Nurse, Tahir if it is OK to add the paper on the chart. Charge nurse, Tahir said its OK to add the paper on charte. PM nurse, Nito Knapp/Maria DRN is aware.
--- NOTE | 2018-11-01 19:54 | NUR ---
HAND-OFF: Report given to Nito nKapp/JENNIFER Killian.
--- NOTE | 2018-11-01 19:57 | NUR ---
NURSE NOTES: Received patient from JENNIFER Johnson. Patient is awake, alert, and verbally responsive let needs known. AAOx4. Patient is breathing unlabored and evenly without signs of distress, discomfort, or SOB on a room air. No pain noted at the time of handoff. Patient has 20 g IV on Right AC intact, dry, and clean. Bed is placed at the lowest with HOB elevated. Bed alarm and breaks are on for patient safety. Side rails are up x 2. All questions answered at the moment. Call light is placed within reach for any assistance needed. Will continue to monitor.
[2018-11-01 20:00] VITALS: BP 104/53
[2018-11-01] MEDS: Atorvastatin 20mg tab ORAL SCH (20:25)
--- NOTE | 2018-11-01 20:40 | NUR ---
NURSE NOTES: Called Dr. Encarnacion and left a message for Lasix prescription pending pharmacy verification.
--- NOTE | 2018-11-01 20:45 | NUR ---
NURSE NOTES: Was able to reach Dr. Encarnacion and informed Dr. Encarnacion regards to pending Lasix prescription. No new orders given.
[2018-11-01] MEDS: cefTRIAXone 1 GM in D5W 55 ML IVPB SCH (21:34)
[2018-11-02] VITALS: BP 111/67
[2018-11-02] MEDS: Albuterol/Ipratropium 3ml neb HHN SCH ×6 (03:36→23:00)
--- NOTE | 2018-11-02 03:45 | History and Physical Report ---
DATE OF ADMISSION: 10/31/2018 CARDIOLOGY EVALUATION ADMITTING PHYSICIAN: Yvan Encarnacion M.D. REQUESTING PHYSICIAN: Sumit Hallman M.D. REASON FOR ADMISSION: Shortness of breath. HISTORY OF PRESENT ILLNESS: This is an 83-year-old male with advanced cardiopulmonary disease. He has had increasing cough and congestion over the past week. He was treated with inhaled bronchodilators and oral steroids, but failed to improve. He also noted some increase in leg swelling. He notes that these symptoms began following a head trauma episode about a week ago. He hit is head hard when getting out of his car although did not pass out or lose consciousness, but he continues to have severe significant headache daily. PAST MEDICAL HISTORY: 1. Chronic obstructive pulmonary disease. 2. History of thoracic aortic aneurysm repair. 3. Permanent pacemaker. 4. Coronary atherosclerosis. 5. Hypertensive heart disease. 6. Diastolic congestive heart failure. 7. Paroxysmal atrial fibrillation. 8. Diverticulosis. 9. Degenerative disk disease with lumbosacral radiculopathy. 10. Cerebrovascular atherosclerosis. 11. Hyperlipidemia. 12. Peripheral neuropathy. 13. Prior cataract surgery. MEDICATIONS: Prior to admission, reviewed and reconciled. ALLERGIES: None. FAMILY HISTORY: Noncontributory. SOCIAL HISTORY: Former smoker. No alcohol or substance abuse. He is a [employer] and refuses blood products. REVIEW OF SYSTEMS: No fevers. No chills. She is hard of hearing. His vision is stable. He has been on oral steroids recently as noted. He is no longer on anticoagulation, but is on amiodarone for arrhythmia suppression. He is on anti-lipid therapy. There is no history of prostate cancer. He does have a history of diverticular disease, but no recent change in bowel habits or bleeding. He does have a wound on his buttocks. There is no history of seizure or stroke. His pacemaker was interrogated within the last month and functioning appropriately. PHYSICAL EXAM: GENERAL: He is in mild distress with regard to congestion. VITAL SIGNS: Blood pressure 123/70, pulse 64, respirations 16, and afebrile. Room air oxygen sat 92%. HEENT: Normocephalic and atraumatic. Conjunctivae pink. Oropharynx clear. NECK: Supple. Jugular venous pressure slightly elevated. No accessory muscle use. LUNGS: Coarse breath sounds. Scattered rhonchi and few expiratory wheezes. CARDIAC: Regular rhythm and rate. Normal S1, S2 with a 1/6 systolic murmur at apex. Pacemaker in the chest wall area on the left with no signs of skin breakdown. ABDOMEN: Soft and nontender with no bruits. EXTREMITIES: Good pulses. No edema. SKIN: Reveals stage II sacral decubitus 3 to 4 cm with serous drainage. LABORATORY DATA: Laboratories are pending. Chest x-ray is pending. Outpatient chest x-ray revealed pulmonary infiltrates bibasilarly and edema. IMPRESSION: 1. Community-acquired pneumonia. 2. Chronic obstructive pulmonary disease exacerbation. 3. Paroxysmal bronchospasm. 4. Acute on chronic diastolic congestive heart failure. 5. Paroxysmal atrial fibrillation. 6. Sacral decubitus. 7. Permanent pacemaker. 8. Recent head trauma with headaches, possible concussion. PLAN: 1. Inhaled bronchodilators. 2. Intravenous steroids. 3. Empiric antibiotics intravenously. 4. Follow up chest x-ray. 5. Head CT. No contrast. 6. Reassess for diuresis. 7. Titrate antihypertensive and anti-failure regimen. 8. Wound care evaluation. Yvan Encarnacion M.D. DR: AIYANA JOB#: [id number] CC: PETER
[2018-11-02 04:00] VITALS: BP 118/74
--- NOTE | 2018-11-02 04:15 | Progress Note ---
DATE: 11/01/2018 CARDIOLOGY PROGRESS NOTE SUBJECTIVE: The patient has less congestion and shortness of breath. He does feel weak. He was noted to have a low hemoglobin level. He was offered a packed red blood cell transfusion. However, the order was canceled when the patient reminded me of his being a [employer] and refusing any blood products. The patient was seen in surgical evaluation of sacral decubitus. OBJECTIVE: VITAL SIGNS: Blood pressure 115/70, pulse 89, respirations 18, and afebrile. Room air oxygen sat is 92%. HEENT: Conjunctivae pink. Sclerae anicteric. Oropharynx clear. NECK: Supple. LUNGS: With few rales. CARDIAC: Regular rhythm and rate. Normal S1, S2 with a 1/6 systolic murmur at apex. ABDOMEN: Soft and nontender. EXTREMITIES: No edema. Sacral decubitus with dressing in place. LABORATORY DATA: White count 9.6, hemoglobin 7.6, and platelet count 228,000. Potassium 4.5, BUN 23, and creatinine 1.3. Pro-natriuretic peptide 1425. Albumin 2.5. IMPRESSION: 1. Acute chronic obstructive pulmonary disease exacerbation. 2. Paroxysmal bronchospasm. 3. Community-acquired pneumonia. 4. Acute on chronic diastolic congestive heart failure. 5. Sacral decubitus. 6. Moderate protein-calorie malnutrition. 7. Anemia, etiology unclear. PLAN: 1. Nasal oxygen. 2. Respiratory hygiene. 3. Antimicrobials intravenously. 4. Periodic diuresis. 5. Skin care. 6. Protein supplement. 7. Nasal oxygen. 8. No blood product transfusion. Yvan Encarnacion M.D. DR: AIYANA JOB#: [id number] CC:
--- NOTE | 2018-11-02 07:14 | NUR ---
HAND-OFF: Report given to JENNIFER Johnson. Informed about the Lasix.
--- NOTE | 2018-11-02 07:45 | NUR ---
NURSE NOTES: Patient alert x4, on room air, no sign of distress and shortness of breath; no sing of chest pain; IV Right AC flushes well; side rails up x2, breaks engaged, bed at lowest position, bed alarm on; call light and urinal within reach; will keep monitoring.
[2018-11-02 08:00] VITALS: BP 126/80
[2018-11-02] MEDS: Losartan 50mg tab ORAL SCH (08:46)
[2018-11-02] MEDS: Solu-MEDROL 40mg Inj IVP SCH ×2 (08:46→20:31)
[2018-11-02] MEDS: Metoprolol Succinate XL 25mg tab ORAL SCH (08:46)
[2018-11-02] MEDS: Amiodarone 200mg tab ORAL SCH (08:46)
[2018-11-02] MEDS: Breo Ellipta 100/25mcg - 14 dose INH SCH (10:22)
[2018-11-02] MEDS: HYDROcodone/Acetamin 10/325 tab ORAL PRN ×2 (10:32→20:31)
--- NOTE | 2018-11-02 11:00 | NUR ---
NURSE NOTES: Wound care provided by wound care nurse, patient tolerated well.
[2018-11-02 12:00] VITALS: BP 131/77
--- NOTE | 2018-11-02 14:34 | NUR ---
NURSE NOTES:WOUND CARE NOTES:Pt presented on admission with resolving pressure injury sacrococcygeal -R sacrum.25% slough at coccyx,75% pink granulation extending into R sacrum(L)4cm x (W)3cm. NO odor or exudate noted. An area that is purple and indurated noted inferior to base of wound(L)4cm x (W)2.5cm. Pt verbalized pain at site of wound and indurated area when minimally palpated. Both heels are dry and blanchable. Pt educated on wound prevention. encouraged to frequently turn side to side in bed to relieve pressure off buttocks. Instructed to avoid sliding against bed linens and to off-lift buttocks when repositioning.Pt denied bladder or bowel incontinence. Tx.Plan:Cleanse wound with Saline. Apply Therahoney to area of slough. Apply Triad periwound .Cover with Optifoam drsg. Change every 3 days and prn. Encourage and assist as needed with repositioning at least every 2 hours or as tolerated. Off-load heels with pillow.
--- NOTE | 2018-11-02 15:43 | NUR ---
NURSE NOTES: MD Encarnacion ordered NC 2 Liter, order carried out as ordered.
[2018-11-02 16:00] VITALS: BP 134/80
--- NOTE | 2018-11-02 19:35 | NUR ---
HAND-OFF: Report given to Miguel Knapp/JENNIFER Alvarado.
--- NOTE | 2018-11-02 19:44 | NUR ---
NURSE NOTES: Received report from JENNIFER Johnson. Patient is in bed, awake and alert x 4. No signs of respiratory distress. Right AC IV is intact. Bed is in the lowest position with 2 side rails up. Bed alarm is on, with the call light in reach. Will continue to monitor the patient.
[2018-11-02 20:00] VITALS: BP 117/60
[2018-11-02] MEDS: Atorvastatin 20mg tab ORAL SCH (20:30)
[2018-11-02] MEDS: cefTRIAXone 1 GM in D5W 55 ML IVPB SCH (22:02)
[2018-11-03] VITALS (8 sets, daily range): BP systolic 108–155; BP diastolic 60–87
--- NOTE | 2018-11-03 00:14 | Surgery Progress Note ---
Surgery Progress Note Objective Last 24 Hour Vital Signs Date Time Temp Pulse Resp B/P (MAP) Pulse Ox O2 Delivery O2 Flow Rate FiO2 11/02/18 23:27 Room Air 21 11/02/18 23:26 Room Air 11/02/18 20:00 98.0 62 18 117/60 (79) 96 11/02/18 19:58 Room Air 11/02/18 19:58 Room Air 21 11/02/18 16:07 66 20 99 Room Air 21 11/02/18 16:00 97.9 73 18 134/80 (98) 97 11/02/18 15:50 65 18 97 Room Air 21 11/02/18 12:00 98.1 78 18 131/77 (95) 98 11/02/18 11:33 Room Air 21 11/02/18 11:33 Room Air 21 11/02/18 11:02 97.9 11/02/18 10:25 63 16 97 Room Air 21 11/02/18 10:24 63 16 97 Room Air 21 11/02/18 09:00 Room Air 11/02/18 08:46 74 126/80 11/02/18 08:46 126/80 11/02/18 08:46 74 126/80 11/02/18 08:00 97.9 74 18 126/80 (95) 97 11/02/18 07:42 Room Air 21 11/02/18 07:40 Room Air 21 11/02/18 04:00 98.2 61 18 118/74 (89) 94 11/02/18 03:36 Room Air 21 11/02/18 03:36 Room Air 21 I&O Intake and Output 11/02/18 11/03/18 19:00 07:00 Intake Total 1100 ml Balance 1100 ml Intake Oral 1100 ml # Voids 6 # Bowel Movements 1 Plan Problems: (1) Chronic obstructive pulmonary disease (2) Elevated troponin (3) UTI (lower urinary tract infection) (4) Acute exacerbation of CHF (congestive heart failure) (5) UTI (lower urinary tract infection) (6) Atrial fibrillation (7) CHF (congestive heart failure) (8) Orthopnea (9) Dyspnea on exertion (10) Swelling of lower extremity (11) Generalized ischemic cerebrovascular disease (12) acute onset left [place] pulsy. (13) Hemoptysis (14) Stroke (15) COPD exacerbation (16) Acute exacerbation of CHF (congestive heart failure) (17) Epistaxis (18) Sacral decubitus ulcer Assessment & Plan: This is a very pleasant 83 year old male who presented with full thickness sacral decubitus ulcer. Seems to have been a DTPI prior which has opened up. Patient states he knew something was forming in the area but unsure what. 4cm x 3cm area of partial thickness epidermal skin loss and small area of central full thickness with opening. mehrdad wound okay. serous drainage. some stool soilage. sacrum.25% slough at coccyx,75% pink granulation extending into R sacrum(L)4cm x (W)3cm. NO odor or exudate noted. An area that is purple and indurated noted inferior to base of wound(L)4cm x (W)2.5cm. Pt verbalized pain at site of wound and indurated area when minimally palpated. Both heels are dry and blanchable. Pt educated on wound prevention. encouraged to frequently turn side to side in bed to relieve pressure off buttocks. Instructed to avoid sliding against bed linens and to off-lift buttocks when repositioning.Pt denied bladder or bowel incontinence. Tx plan: discussed findings with patient. patient understands that this is a pressure injury. he is able to participate in exam and understands needs to off load pressure turn q2h air mattress ambulate as much as possible Cleanse wound with Saline. Apply Therahoney to area of slough. Apply Triad periwound .Cover with Optifoam drsg. Change every 3 days and prn. Encourage and assist as needed with repositioning at least every 2 hours or as tolerated. Off-load heels with pillow. will monitor while in hospital thank you Erlin Kearns Nov 03, 2018 00:14
[2018-11-03] MEDS: Albuterol/Ipratropium 3ml neb HHN SCH ×6 (02:20→22:26)
--- NOTE | 2018-11-03 04:00 | Progress Note ---
DATE: 11/02/2018 CARDIOLOGY PROGRESS NOTE SUBJECTIVE: The patient reports no bleeding from his rectum, although he has noted dark stools. He has less shortness of breath. No chest pain. OBJECTIVE: VITAL SIGNS: Blood pressure 108/68, pulse 61, and respiratory rate 19. LUNGS: Coarse breath sounds. Scattered rhonchi. HEART: Regular rhythm and rate. Normal S1 and S2. ABDOMEN: Soft. EXTREMITIES: No edema. IMPRESSION: 1. Chronic obstructive pulmonary disease exacerbation. 2. Community-acquired pneumonia. 3. Severe anemia, possible gastrointestinal bleeding. 4. Hypertensive heart disease. 5. Paroxysmal atrial fibrillation. PLAN: 1. Await stool studies. 2. Serial hemoglobin. 3. Iron panel. 4. Steroid taper. 5. Intravenous antibiotics. 6. Inhaled bronchodilators. 7. No blood product transfusions due to his Jehovah Witness status. Yvan Encarnacion M.D. DR: NOHEMY JOB#: [id number] CC:
--- NOTE | 2018-11-03 04:21 | NUR ---
NURSE NOTES: Performed wound care using therahoney and optifoam, and changed dressing for sacral wound around 0400.
[2018-11-03] MEDS: HYDROcodone/Acetamin 10/325 tab ORAL PRN ×2 (04:56→21:37)
--- NOTE | 2018-11-03 07:15 | NUR ---
NURSE NOTES: Report received from Antionette RODRIGUEZ, rounds made. Patient sitting in chair at this time, alert oriented x4. Denies pain, NV or SOB on RA. Will assess sacral dressing. Call light in reach, bed in lowest position, will continue to monitor.
--- NOTE | 2018-11-03 07:24 | NUR ---
HAND-OFF: Report given to JENNIFER Aaron.
[2018-11-03] MEDS: Breo Ellipta 100/25mcg - 14 dose INH SCH (07:49)
[2018-11-03 08:45] LABS: HEMATOCRIT 25.4 % (42.0-52.0); HEMOGLOBIN 7.6 G/DL (14.2-18.0); MEAN CORPUSCULAR VOLUME 71 FL (80-99); PLATELET COUNT 265 K/UL (150-450); RED BLOOD COUNT 3.58 M/UL (4.70-6.10); RED CELL DISTRIBUTION WIDTH 20.1 % (11.6-14.8); WHITE BLOOD COUNT 15.6 K/UL (4.8-10.8)
[2018-11-03] MEDS ORDERED: Vitamin D 50,000 units cap ORAL SCH ×2 (09:00→11:00)
[2018-11-03] MEDS ORDERED: Solu-MEDROL 40mg Inj IVP SCH (09:00)
[2018-11-03 09:09] LABS: % IRON SATURATION 4 % (15-50); IRON 12 ug/dL (50-175); TOTAL IRON BINDING CAPACITY 303 ug/dL (250-450)
[2018-11-03 09:10] LABS: ANION GAP 11 mmol/L (5-15); BLOOD UREA NITROGEN 25 mg/dL (7-18); CALCIUM 10.5 MG/DL (8.5-10.1); CARBON DIOXIDE 26 MMOL/L (21-32); CHLORIDE 106 MMOL/L (98-107); CREATININE 1.3 MG/DL (0.55-1.30); POTASSIUM 4.3 MMOL/L (3.5-5.1); SODIUM 142 MMOL/L (136-145)
[2018-11-03] MEDS: Amiodarone 200mg tab ORAL SCH (09:53)
[2018-11-03] MEDS: Losartan 50mg tab ORAL SCH (09:54)
[2018-11-03] MEDS: Metoprolol Succinate XL 25mg tab ORAL SCH (09:54)
--- NOTE | 2018-11-03 11:04 | NUR ---
RD ASSESSMENT & RECOMMENDATIONS SEE CARE ACTIVITY FOR COMPLETE ASSESSMENT DAILY ESTIMATED NEEDS: Needs based on Cardiac, wound 89kg adj 25-35 kcals/kg 2379-8904 total kcals 1.25-1.5 g protein/kg 111-134 g total protein Fluid per MD, on lasix NUTRITION DIAGNOSIS: Increased kcal and pro needs r/t wound healing as evidenced by pt being mostly wheelchair bound w/ full thickness sacral decubitus ulcer. CURRENT DIET: BIGG PO DIET RECOMMENDATIONS: LOW NA DIET (texture per ENVIRONMENTAL MONITORING TECHNICIAN) + Snacks BID in b/w meals daily ADDITIONAL RECOMMENDATIONS: 1) Standing wt as able / CALIBRATED BED SCALE wt 2) Monitor BG and need for coverage on solumedrol 3) con't to encourage >75% po intake 4) Texture per ENVIRONMENTAL MONITORING TECHNICIAN 5) Add ENSURE ENLIVE BID in b/w meals 6) WOUND CARE: Add VIT C 250mg BID + MVI x1 daily + KELLEY BID
[2018-11-03] MEDS ORDERED: Vitamin B12 1000mcg/ml Inj IM SCH (12:51)
--- NOTE | 2018-11-03 14:30 | NUR ---
NURSE NOTES: Patient up to chair, has good activity tolerance and bed mobility. Instructed patient on skin precautions, change position every 2 hours, keep skin clean and dry, eat well, keep hydrated, verbalized understanding. Sacral dressing changed at 1235, see wound care assessment, cleansed with NS, pat dry, applied calazime to periwound and therahoney to slough, (wound bed pink), covered with optifoam and secured with tape. Skin guard overlay was delivered and applied at 1250. Will continue to monitor.
--- NOTE | 2018-11-03 15:34 | Surgery Progress Note ---
Surgery Progress Note Subjective Additional Comments leukocytosis noted today micro with UTI. afebrile, HD stable Objective Last 24 Hour Vital Signs Date Time Temp Pulse Resp B/P (MAP) Pulse Ox O2 Delivery O2 Flow Rate FiO2 11/03/18 12:35 Room Air 11/03/18 12:00 97.8 65 18 123/71 (88) 98 11/03/18 11:39 72 18 99 Room Air 21 11/03/18 11:29 69 18 97 Room Air 11/03/18 09:54 61 111/62 11/03/18 09:54 111/62 11/03/18 09:53 61 111/62 11/03/18 09:50 61 111/62 (78) 11/03/18 09:00 67 16 97 Room Air 21 11/03/18 09:00 Room Air 11/03/18 09:00 67 16 97 Room Air 21 11/03/18 08:00 98.2 67 18 112/63 (79) 96 11/03/18 07:59 69 18 98 Room Air 21 11/03/18 07:49 67 18 97 Room Air 11/03/18 04:00 97.9 62 18 108/65 (79) 96 11/03/18 02:21 Room Air 21 11/03/18 02:20 Room Air 11/03/18 00:00 97.6 61 19 108/68 (81) 96 11/02/18 23:27 Room Air 21 11/02/18 23:26 Room Air 11/02/18 21:00 Room Air 11/02/18 20:00 98.0 62 18 117/60 (79) 96 11/02/18 19:58 Room Air 11/02/18 19:58 Room Air 21 11/02/18 16:07 66 20 99 Room Air 21 11/02/18 16:00 97.9 73 18 134/80 (98) 97 11/02/18 15:50 65 18 97 Room Air 21 I&O Intake and Output 11/02/18 11/03/18 18:59 06:59 Intake Total 1100 ml 555 ml Balance 1100 ml 555 ml Intake Oral 1100 ml 500 ml IV Total 55 ml # Voids 6 4 # Bowel Movements 1 Dressing: dry Wound: clean Drains: none Cardiovascular: RSR Respiratory: clear Abdomen: soft, flat, non-tender Extremities: no tenderness, no cyanosis Laboratory Tests Test 6/21/19 06:34 White Blood Count 15.6 K/UL (4.8-10.8) H Red Blood Count 3.58 M/UL (4.70-6.10) L Hemoglobin 7.6 G/DL (14.2-18.0) L Hematocrit 25.4 % (42.0-52.0) L Mean Corpuscular Volume 71 FL (80-99) L Mean Corpuscular Hemoglobin 21.3 PG (27.0-31.0) L Mean Corpuscular Hemoglobin Concent 29.9 G/DL (32.0-36.0) L Red Cell Distribution Width 20.1 % (11.6-14.8) H Platelet Count 265 K/UL (150-450) Mean Platelet Volume 5.8 FL (6.5-10.1) L Neutrophils (%) (Auto) % (45.0-75.0) Lymphocytes (%) (Auto) % (20.0-45.0) Monocytes (%) (Auto) % (1.0-10.0) Eosinophils (%) (Auto) % (0.0-3.0) Basophils (%) (Auto) % (0.0-2.0) Differential Total Cells Counted 100 Neutrophils % (Manual) 96 % (45-75) H Lymphocytes % (Manual) 3 % (20-45) L Monocytes % (Manual) 1 % (1-10) Eosinophils % (Manual) 0 % (0-3) Basophils % (Manual) 0 % (0-2) Band Neutrophils 0 % (0-8) Nucleated Red Blood Cells 1 /100 WBC Platelet Estimate Adequate Platelet Morphology Normal Polychromasia 1+ Hypochromasia 2+ Anisocytosis 2+ Microcytosis 1+ Sodium Level 142 MMOL/L (136-145) Potassium Level 4.3 MMOL/L (3.5-5.1) Chloride Level 106 MMOL/L (98-107) Carbon Dioxide Level 26 MMOL/L (21-32) Anion Gap 11 mmol/L (5-15) Blood Urea Nitrogen 25 mg/dL (7-18) H Creatinine 1.3 MG/DL (0.55-1.30) Estimat Glomerular Filtration Rate mL/min (>60) Glucose Level 131 MG/DL (74-106) H Calcium Level 10.5 MG/DL (8.5-10.1) H Magnesium Level 2.0 MG/DL (1.8-2.4) Iron Level 12 ug/dL (50-175) L Total Iron Binding Capacity 303 ug/dL (250-450) Percent Iron Saturation 4 % (15-50) L Unsaturated Iron Binding 291 ug/dL (112-346) Plan Problems: (1) Chronic obstructive pulmonary disease (2) Elevated troponin (3) UTI (lower urinary tract infection) (4) Acute exacerbation of CHF (congestive heart failure) (5) UTI (lower urinary tract infection) Assessment & Plan: uti leukocytosis abx (6) Atrial fibrillation (7) CHF (congestive heart failure) (8) Orthopnea (9) Dyspnea on exertion (10) Swelling of lower extremity (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 (13) Hemoptysis (14) Stroke (15) COPD exacerbation (16) Acute exacerbation of CHF (congestive heart failure) (17) Epistaxis (18) Sacral decubitus ulcer Assessment & Plan: This is a very pleasant 83 year old male who presented with full thickness sacral decubitus ulcer. Seems to have been a DTPI prior which has opened up. Patient states he knew something was forming in the area but unsure what. 4cm x 3cm area of partial thickness epidermal skin loss and small area of central full thickness with opening. mehrdad wound okay. serous drainage. some stool soilage. sacrum.25% slough at coccyx,75% pink granulation extending into R sacrum(L)4cm x (W)3cm. NO odor or exudate noted. An area that is purple and indurated noted inferior to base of wound(L)4cm x (W)2.5cm. Pt verbalized pain at site of wound and indurated area when minimally palpated. Both heels are dry and blanchable. Pt educated on wound prevention. encouraged to frequently turn side to side in bed to relieve pressure off buttocks. Instructed to avoid sliding against bed linens and to off-lift buttocks when repositioning.Pt denied bladder or bowel incontinence. Tx plan: discussed findings with patient. patient understands that this is a pressure injury. he is able to participate in exam and understands needs to off load pressure turn q2h air mattress ambulate as much as possible Cleanse wound with Saline. Apply Therahoney to area of slough. Apply Triad periwound .Cover with Optifoam drsg. Change every 3 days and prn. Encourage and assist as needed with repositioning at least every 2 hours or as tolerated. Off-load heels with pillow. will monitor while in hospital thank you Erlin Kearns Nov 03, 2018 15:34
--- NOTE | 2018-11-03 16:20 | NUR ---
CASE MANAGEMENT:REVIEW 11/03/18 SI: COPD. ELEVATED TROPONIN 97.8 65 18 123/71 98% RA WBC+15.6 H/H-7.6/25.4 GLUCOSE+131 IS: IV VENOFER QHS IV SOLUMEDROL QD DUONEB HHN Q4HRS RTC AMIODARONE PO QD NORVASC PO QD COZAAR PO QD TOPROL XL PO QD IV ROCEPHIN Q24 : MED/SURG STATUS 3 EAST DCP: FROM HOME
--- NOTE | 2018-11-03 17:00 | NUR ---
NURSE NOTES: Patient up to bathroom, no BM, last BM 11/02. Appetite and PO fluid intake good. No NV. Outstanding Stool OB, patient aware. Vitamin B12 x1 IM administered as ordered. Patient aware of Venofer to given tonight.
--- NOTE | 2018-11-03 19:45 | NUR ---
HAND-OFF: Report given to Jo RODRIGUEZ. Addendum: 11/03/18 at 2019 by Agnieszka Lundberg RN Endorsed that patient has outstanding stool OB.
--- NOTE | 2018-11-03 19:45 | NUR ---
NURSE NOTES: Patient sitting up in chair, in no acute distress, on room air, instructed patient on skin precautions, change position every 2 hours, keep skin clean and dry, eat well, keep hydrated, verbalized understanding. Sacral dressing changed 11/03 on day shift, see wound care assessment, cleansed with NS, pat dry, applied calazime to periwound and therahoney to slough, (wound bed pink), covered with optifoam and secured with tape. Will continue to monitor.
[2018-11-03] MEDS: Iron Sucrose 100 MG in NS 55 ML IV SCH (21:12)
[2018-11-03] MEDS: Atorvastatin 20mg tab ORAL SCH (21:12)
[2018-11-03] MEDS: cefTRIAXone 1 GM in D5W 55 ML IVPB SCH (21:37)
[2018-11-03] MEDS: Piperacillin/Tazobactam 3.375 GM in NS 110 ML IVPB SCH (23:45)
--- NOTE | 2018-11-04 00:15 | Progress Note ---
DATE: 11/03/2018 CARDIOLOGY PROGRESS NOTE SUBJECTIVE: The patient had a bowel movement; however, nurses still have not admitted an occult blood test. He has got cough and congestion. He has been started on IV iron based on his iron panel. Cultures of the sputum revealed gram-negative rods. Cultures of the urine revealed Aerococcus. OBJECTIVE: VITAL SIGNS: Afebrile. Blood pressure 110/60, pulse 62, respirations 18. LUNGS: Coarse breath sounds. No wheezes. CARDIAC: Regular rhythm and rate. Normal S1, S2 with a fourth heart sound. ABDOMEN: Soft, nontender. EXTREMITIES: No edema. LABORATORY DATA: White count 15, hemoglobin 7.6. Potassium 4.3, BUN 25, creatinine 1.3. IMPRESSION: 1. Community-acquired pneumonia. 2. COPD exacerbation. 3. Recovering bronchospasm. 4. Severe iron deficiency with anemia. 5. Acute on chronic diastolic congestive heart failure. 6. Permanent pacemaker. 7. Paroxysmal atrial fibrillation. 8. Steroid-associated leukocytosis. 9. Urinary tract infection. PLAN: 1. Antimicrobials adjusted based on cultures. 2. Steroid taper. 3. IV iron. 4. Await stool occult blood testing. 5. Repeat chest x-ray. 6. Respiratory hygiene. 7. GI workup to follow if stool occult blood positive. Yvan Encarnacion M.D. DR: DAREN JOB#: [id number] CC:
[2018-11-04] MEDS: Albuterol/Ipratropium 3ml neb HHN SCH ×6 (02:29→22:42)
[2018-11-04 04:00] VITALS: BP 141/91
[2018-11-04] MEDS: Piperacillin/Tazobactam 3.375 GM in NS 110 ML IVPB SCH ×3 (05:21→22:35)
[2018-11-04 07:57] VITALS: BP 132/75
--- NOTE | 2018-11-04 08:10 | NUR ---
NURSE NOTES: stool ob collected and sent to the lab.
--- NOTE | 2018-11-04 08:14 | NUR ---
HAND-OFF: Report given to JENNIFER Reed.
[2018-11-04 08:48] LABS: HEMATOCRIT 30.2 % (42.0-52.0); HEMOGLOBIN 8.9 G/DL (14.2-18.0); MEAN CORPUSCULAR VOLUME 71 FL (80-99); PLATELET COUNT 295 K/UL (150-450); RED BLOOD COUNT 4.23 M/UL (4.70-6.10); RED CELL DISTRIBUTION WIDTH 21.1 % (11.6-14.8); WHITE BLOOD COUNT 16.2 K/UL (4.8-10.8)
[2018-11-04] MEDS: Solu-MEDROL 40mg Inj IVP SCH (08:56)
[2018-11-04] MEDS: Amiodarone 200mg tab ORAL SCH (08:57)
[2018-11-04] MEDS: Metoprolol Succinate XL 25mg tab ORAL SCH (08:58)
[2018-11-04] MEDS: Losartan 50mg tab ORAL SCH (08:58)
[2018-11-04] MEDS: HYDROcodone/Acetamin 10/325 tab ORAL PRN ×2 (09:01→21:33)
[2018-11-04 09:14] LABS: ALANINE AMINOTRANSFERASE 22 U/L (12-78); ALBUMIN/GLOBULIN RATIO 0.6 (1.0-2.7); ALKALINE PHOSPHATASE 46 U/L (46-116); ANION GAP 11 mmol/L (5-15); ASPARTATE AMINO TRANSFERASE 17 U/L (15-37); BILIRUBIN,TOTAL 0.6 MG/DL (0.2-1.0); BLOOD UREA NITROGEN 30 mg/dL (7-18); CALCIUM 10.8 MG/DL (8.5-10.1); CARBON DIOXIDE 26 MMOL/L (21-32); CHLORIDE 105 MMOL/L (98-107); CREATININE 1.3 MG/DL (0.55-1.30); POTASSIUM 4.3 MMOL/L (3.5-5.1); SODIUM 142 MMOL/L (136-145)
[2018-11-04] MEDS: Breo Ellipta 100/25mcg - 14 dose INH SCH (09:30)
[2018-11-04 12:00] VITALS: BP 116/68
--- NOTE | 2018-11-04 15:21 | Diagnostic Imaging Report ---
EXAM: XR Chest, 2 Views CLINICAL HISTORY: ABN CHST TECHNIQUE: Frontal and lateral views of the chest. COMPARISON: Chest radiograph on 11/01/2018 FINDINGS: Hardware: None. Lungs/pleura: Hyperinflation of the lungs is suggestive of COPD. Probable pulmonary vasculature congestion. Left basilar opacity may represent atelectasis versus pneumonia. No pleural effusion or pneumothorax. Heart/mediastinum: Similar enlargement of the cardiomediastinal silhouette. Left atrial appendage clip. 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 Left-sided pacemaker. Soft tissues: Unremarkable. Bones: No acute fracture. Osteopenia. Degenerative changes of the acromioclavicular joints. Upper abdomen: Normal. IMPRESSION: Hyperinflation of the lungs is suggestive of COPD. Probable pulmonary vasculature congestion. Left basilar opacity may represent atelectasis versus pneumonia.
[2018-11-04 16:00] VITALS: BP 108/67
--- NOTE | 2018-11-04 16:55 | Surgery Progress Note ---
Surgery Progress Note Subjective Additional Comments afebrile, HD stable, exam stable. more mobile. Objective Last 24 Hour Vital Signs Date Time Temp Pulse Resp B/P (MAP) Pulse Ox O2 Delivery O2 Flow Rate FiO2 11/04/18 16:00 98.8 94 18 108/67 (81) 98 11/04/18 15:47 68 18 100 Room Air 21 11/04/18 15:39 63 18 92 Room Air 21 11/04/18 12:00 97.2 61 18 116/68 (84) 97 11/04/18 11:35 Room Air 11/04/18 11:35 Room Air 11/04/18 09:33 60 18 96 Room Air 21 11/04/18 09:31 97.5 11/04/18 09:30 60 18 96 Room Air 21 11/04/18 09:30 Room Air 11/04/18 08:58 61 132/75 11/04/18 08:58 132/75 11/04/18 08:57 61 132/75 11/04/18 07:57 97.5 61 18 132/75 (94) 99 11/04/18 06:45 Room Air 21 11/04/18 06:45 Room Air 21 11/04/18 02:29 Room Air 21 11/04/18 02:29 Room Air 21 11/03/18 22:26 Room Air 21 11/03/18 22:26 Room Air 21 11/03/18 21:00 Room Air 11/03/18 20:43 97.7 62 18 110/60 (77) 95 11/03/18 20:31 Room Air 21 11/03/18 20:31 60 16 92 Room Air 21 I&O Intake and Output 11/03/18 11/04/18 19:00 07:00 Intake Total 1188 ml 360 ml Output Total 250 ml 550 ml Balance 938 ml -190 ml Intake Oral 1188 ml 360 ml Output Urine Total 250 ml 550 ml # Voids 2 2 Dressing: dry Wound: clean Cardiovascular: RSR Respiratory: clear Abdomen: soft, present bowel sounds Extremities: no tenderness, no cyanosis Laboratory Tests Test 11/04/18 08:00 11/04/18 08:16 Stool Occult Blood Positive (NEGATIVE) White Blood Count 16.2 K/UL (4.8-10.8) H Red Blood Count 4.23 M/UL (4.70-6.10) L Hemoglobin 8.9 G/DL (14.2-18.0) L Hematocrit 30.2 % (42.0-52.0) L Mean Corpuscular Volume 71 FL (80-99) L Mean Corpuscular Hemoglobin 21.0 PG (27.0-31.0) L Mean Corpuscular Hemoglobin Concent 29.5 G/DL (32.0-36.0) L Red Cell Distribution Width 21.1 % (11.6-14.8) H Platelet Count 295 K/UL (150-450) Mean Platelet Volume 5.1 FL (6.5-10.1) L Neutrophils (%) (Auto) % (45.0-75.0) Lymphocytes (%) (Auto) % (20.0-45.0) Monocytes (%) (Auto) % (1.0-10.0) Eosinophils (%) (Auto) % (0.0-3.0) Basophils (%) (Auto) % (0.0-2.0) Differential Total Cells Counted 100 Neutrophils % (Manual) 94 % (45-75) H Lymphocytes % (Manual) 3 % (20-45) L Monocytes % (Manual) 3 % (1-10) Eosinophils % (Manual) 0 % (0-3) Basophils % (Manual) 0 % (0-2) Band Neutrophils 0 % (0-8) Nucleated Red Blood Cells 3 /100 WBC Platelet Estimate Adequate Platelet Morphology Normal Polychromasia 1+ Hypochromasia 1+ Anisocytosis 3+ Microcytosis 1+ Sodium Level 142 MMOL/L (136-145) Potassium Level 4.3 MMOL/L (3.5-5.1) Chloride Level 105 MMOL/L (98-107) Carbon Dioxide Level 26 MMOL/L (21-32) Anion Gap 11 mmol/L (5-15) Blood Urea Nitrogen 30 mg/dL (7-18) H Creatinine 1.3 MG/DL (0.55-1.30) Estimat Glomerular Filtration Rate mL/min (>60) Glucose Level 102 MG/DL (74-106) Calcium Level 10.8 MG/DL (8.5-10.1) H Magnesium Level 2.1 MG/DL (1.8-2.4) Total Bilirubin 0.6 MG/DL (0.2-1.0) Aspartate Amino Transf (AST/SGOT) 17 U/L (15-37) Alanine Aminotransferase (ALT/SGPT) 22 U/L (12-78) Alkaline Phosphatase 46 U/L (46-116) Pro-B-Type Natriuretic Peptide 2264 pg/mL (0-125) H Total Protein 8.0 G/DL (6.4-8.2) Albumin 3.0 G/DL (3.4-5.0) L Globulin 5.0 g/dL Albumin/Globulin Ratio 0.6 (1.0-2.7) L Carcinoembryonic Antigen Pending Plan Problems: (1) Chronic obstructive pulmonary disease (2) Elevated troponin (3) UTI (lower urinary tract infection) (4) Acute exacerbation of CHF (congestive heart failure) (5) UTI (lower urinary tract infection) Assessment & Plan: uti leukocytosis (steroid ? 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 (13) Hemoptysis (14) Stroke (15) COPD exacerbation (16) Acute exacerbation of CHF (congestive heart failure) (17) Epistaxis (18) Sacral decubitus ulcer Assessment & Plan: This is a very pleasant 83 year old male who presented with full thickness sacral decubitus ulcer. Seems to have been a DTPI prior which has opened up. Patient states he knew something was forming in the area but unsure what. 4cm x 3cm area of partial thickness epidermal skin loss and small area of central full thickness with opening. mehrdad wound okay. serous drainage. some stool soilage. sacrum.25% slough at coccyx,75% pink granulation extending into R sacrum(L)4cm x (W)3cm. NO odor or exudate noted. An area that is purple and indurated noted inferior to base of wound(L)4cm x (W)2.5cm. Pt verbalized pain at site of wound and indurated area when minimally palpated. Both heels are dry and blanchable. Pt educated on wound prevention. encouraged to frequently turn side to side in bed to relieve pressure off buttocks. Instructed to avoid sliding against bed linens and to off-lift buttocks when repositioning.Pt denied bladder or bowel incontinence. Tx plan: discussed findings with patient. patient understands that this is a pressure injury. he is able to participate in exam and understands needs to off load pressure turn q2h air mattress ambulate as much as possible Cleanse wound with Saline. Apply Therahoney to area of slough. Apply Triad periwound .Cover with Optifoam drsg. Change every 3 days and prn. Encourage and assist as needed with repositioning at least every 2 hours or as tolerated. Off-load heels with pillow. will monitor while in hospital thank you Erlin Kearns Nov 04, 2018 16:55
--- NOTE | 2018-11-04 18:48 | NUR ---
NURSE NOTES: left VM to Dr. Encarnacion regarding positive result for ob stool. await for call back
--- NOTE | 2018-11-04 19:29 | NUR ---
HAND-OFF: Report given to JENNIFER Hernandez.
[2018-11-04 20:00] VITALS: BP 119/80
--- NOTE | 2018-11-04 20:01 | Progress Note ---
CARDIOLOGY AND INTERNAL MEDICINE PROGRESS NOTE DATE: 11/04/2018 SUBJECTIVE: The patient has less congestion, but possibly more short of breath. No chest pain. He received IV iron yesterday. His hemoglobin has improved. His oxygen saturation is now adequate on room air at 96%. OBJECTIVE: VITAL SIGNS: Blood pressure 116/68, pulse 61, respiratory rate 18, and afebrile. LUNGS: With few rales. CARDIAC: Regular rhythm and rate. Normal S1, S2 with a 1/6 systolic murmur at apex. ABDOMEN: Soft. EXTREMITIES: No edema. LABORATORY DATA: Stool occult blood is pending. Magnesium 2.1. Potassium 4.3, BUN 30, and creatinine 1.3. Albumin 3. Pro-natriuretic peptide is 2265. Culture of the sputum is positive for Citrobacter and culture of the urine is positive for Enterococcus. IMPRESSION: 1. Community-acquired gram-negative pneumonia with Citrobacter freundii. 2. Chronic obstructive pulmonary disease exacerbation. 3. Acute bronchospasm. 4. Acute on chronic diastolic congestive heart failure. 5. Permanent pacemaker. 6. Paroxysmal atrial fibrillation. 7. Urinary tract infection. 8. Iron deficiency with anemia. 9. Possible gastrointestinal bleeding. PLAN: 1. Await stool occult blood test. 2. Continue IV iron. 3. Continue inhaled bronchodilators, IV antibiotics, and respiratory hygiene. 4. Titrate cardiovascular regimen. 5. IV diuretic added for today. 6. GI consult if stool occult blood is positive. Yvan Encarnacion M.D. DR: CAROLINE JOB#: [id number] CC:
--- NOTE | 2018-11-04 20:38 | NUR ---
NURSE NOTES: RECIEVED PT. SITTING IN A CHAIR ALERT AND ORIENTED W/ NO SIGN OF DISTRESS NOTED @ TIME .V/S STABLE CALL LIGHT WITHIN REACH.INSTRUCTED TO CALL FOR ANY ASSISTANCE,VERBALIZES UNDERSTANDING.REFUSED RESPIRATORY TREATMENT PER RT.O2 SAT ON R/A 97%.WILL CONTINUE TO MONITOR.
[2018-11-04] MEDS: Atorvastatin 20mg tab ORAL SCH (21:32)
[2018-11-04] MEDS: Iron Sucrose 100 MG in NS 55 ML IV SCH (22:25)
[2018-11-05] VITALS: BP_SYST 111; BP_SYST 123; BP_DIAS 66; BP_DIAS 73
[2018-11-05] MEDS: Albuterol/Ipratropium 3ml neb HHN SCH ×6 (03:34→22:22)
[2018-11-05 04:00] VITALS: BP 123/69
[2018-11-05] MEDS: Piperacillin/Tazobactam 3.375 GM in NS 110 ML IVPB SCH ×3 (05:57→22:37)
--- NOTE | 2018-11-05 07:19 | NUR ---
HAND-OFF: Report given to JERAMIE RODRIGUEZ.
--- NOTE | 2018-11-05 07:36 | NUR ---
RESPIRATORY NOTE: Attempted to give pt breathing TX Duoneb. Pt is refusing. Pt is awake, alert, no SOB or resp distress and has been refusing breathing TX. Inform pt that if he feels SOB and need breathing Tx, please let RN know to call RT. Pt understands it. RN Afsoon made aware.
--- NOTE | 2018-11-05 07:57 | NUR ---
NURSE NOTES: Received pt from JENNIFER SOLO. Pt is alert and orient x4. pt is in RA, No SOB or acute respiratory distress noted. pt has intact iv access LFA 22G SL. Pt is eating breakfast independently. All needs attended, bed is locked and is in the lowest position. call light within easy reach. will continue to monitor.
[2018-11-05 08:00] VITALS: BP 120/72
[2018-11-05] MEDS: Breo Ellipta 100/25mcg - 14 dose INH SCH (08:38)
[2018-11-05] MEDS: Metoprolol Succinate XL 25mg tab ORAL SCH (08:50)
[2018-11-05] MEDS: Losartan 50mg tab ORAL SCH (08:50)
[2018-11-05] MEDS: HYDROcodone/Acetamin 10/325 tab ORAL PRN ×2 (08:51→21:28)
[2018-11-05] MEDS: Amiodarone 200mg tab ORAL SCH (08:51)
[2018-11-05] MEDS: Solu-MEDROL 40mg Inj IVP SCH (08:51)
[2018-11-05 12:00] VITALS: BP 126/77
[2018-11-05] MEDS ORDERED: NS 275ml ONE (13:07)
--- NOTE | 2018-11-05 13:40 | Surgery Progress Note ---
Surgery Progress Note Subjective Additional Comments Patient seen and examined at bedside. Denies any nausea vomiting fever chills. States he feels well. Is up sitting in the chair and ambulatory. Tolerating oral diet. Is less congested today. Objective Last 24 Hour Vital Signs Date Time Temp Pulse Resp B/P (MAP) Pulse Ox O2 Delivery O2 Flow Rate FiO2 11/05/18 12:00 98.0 68 19 126/77 (93) 98 11/05/18 11:06 Room Air 21 11/05/18 11:06 Room Air 21 11/05/18 09:21 97.1 11/05/18 09:00 Room Air 11/05/18 08:51 60 120/72 11/05/18 08:50 60 120/72 11/05/18 08:50 120/72 11/05/18 08:40 60 18 97 Room Air 21 11/05/18 08:38 61 17 96 Room Air 21 11/05/18 08:00 97.1 63 19 120/72 (88) 98 11/05/18 07:36 Room Air 21 11/05/18 07:36 Room Air 21 11/05/18 04:00 97.5 61 18 123/69 (87) 97 11/05/18 03:34 Room Air 21 11/05/18 03:34 Room Air 11/05/18 00:00 97.7 60 18 111/66 (81) 96 11/04/18 22:42 Room Air 11/04/18 22:42 Room Air 21 11/04/18 21:00 Room Air 11/04/18 20:39 60 16 97 Room Air 21 11/04/18 20:39 Room Air 11/04/18 20:00 98.0 63 19 119/80 (93) 99 11/04/18 16:00 98.8 94 18 108/67 (81) 98 11/04/18 15:47 68 18 100 Room Air 21 11/04/18 15:39 63 18 92 Room Air 21 I&O Intake and Output 11/04/18 11/05/18 19:00 07:00 Intake Total 830.0 ml 617.5 ml Output Total 850 ml Balance 830.0 ml -232.5 ml Intake Oral 720 ml 480 ml IV Total 110.0 ml 137.5 ml Output Urine Total 850 ml # Voids 3 2 # Bowel Movements 2 Dressing: dry Wound: clean Cardiovascular: RSR Respiratory: clear, decreased breath sounds Abdomen: soft, present bowel sounds, non-distended Extremities: no tenderness, no cyanosis Plan Problems: (1) Chronic obstructive pulmonary disease (2) Elevated troponin (3) UTI (lower urinary tract infection) (4) Acute exacerbation of CHF (congestive heart failure) (5) UTI (lower urinary tract infection) Assessment & Plan: uti leukocytosis (steroid ? 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 (13) Hemoptysis (14) Stroke (15) COPD exacerbation (16) Acute exacerbation of CHF (congestive heart failure) (17) Epistaxis (18) Sacral decubitus ulcer Assessment & Plan: This is a very pleasant 83 year old male who presented with full thickness sacral decubitus ulcer. Seems to have been a DTPI prior which has opened up. Patient states he knew something was forming in the area but unsure what. 4cm x 3cm area of partial thickness epidermal skin loss and small area of central full thickness with opening. mehrdad wound okay. serous drainage. some stool soilage. sacrum.25% slough at coccyx,75% pink granulation extending into R sacrum(L)4cm x (W)3cm. NO odor or exudate noted. An area that is purple and indurated noted inferior to base of wound(L)4cm x (W)2.5cm. Pt verbalized pain at site of wound and indurated area when minimally palpated. Both heels are dry and blanchable. Pt educated on wound prevention. encouraged to frequently turn side to side in bed to relieve pressure off buttocks. Instructed to avoid sliding against bed linens and to off-lift buttocks when repositioning.Pt denied bladder or bowel incontinence. Tx plan: discussed findings with patient. patient understands that this is a pressure injury. he is able to participate in exam and understands needs to off load pressure turn q2h air mattress ambulate as much as possible Cleanse wound with Saline. Apply Therahoney to area of slough. Apply Triad periwound .Cover with Optifoam drsg. Change every 3 days and prn. Encourage and assist as needed with repositioning at least every 2 hours or as tolerated. Off-load heels with pillow. will monitor while in hospital thank you Erlin Kearns Nov 05, 2018 13:40
[2018-11-05 16:00] VITALS: BP 124/80
--- NOTE | 2018-11-05 19:30 | NUR ---
HAND-OFF: Report given to JENNIFER BROWN.
--- NOTE | 2018-11-05 19:55 | NUR ---
RESPIRATORY NOTE: ATTEMPTED TO GIVE PT HHN TX SCHEDULED BUT PT REFUSED. RISK AND BENEFITS WERE EXPLAINED AND PT STILL DECLINED TX. PT IS AWAKE AND ALERT SHOWING NO S/S OF RESPIRATORY DISTRESS. ALL VS ARE WNL. PT AGREED TO LET RN KNOW IF HE FEELS SOB AND NEEDS RESP TX TO BE GIVEN BY RT. JENNIFER BROWN NOTIFIED.
[2018-11-05 20:00] VITALS: BP 103/64
[2018-11-05] MEDS: Iron Sucrose 100 MG in NS 55 ML IV SCH (21:00)
[2018-11-05] MEDS: Atorvastatin 20mg tab ORAL SCH (21:25)
[2018-11-06] VITALS: BP 103/73
--- NOTE | 2018-11-06 02:30 | Progress Note ---
DATE: 11/05/2018 CARDIOLOGY PROGRESS NOTE SUBJECTIVE: Stool occult blood was positive. The patient has less shortness of breath and congestion. Multiple culture results are abnormal. OBJECTIVE: VITAL SIGNS: Blood pressure 124/80, pulse 65, respiratory rate 18. LUNGS: Clear. CARDIAC: Regular. Normal S1 and S2. ABDOMEN: Soft. EXTREMITIES: No edema. IMPRESSION: 1. Gastrointestinal bleed. 2. Iron deficiency anemia. 3. Polymicrobial pneumonia. 4. Urinary tract infection. 5. Pacemaker. 6. Paroxysmal atrial fibrillation. 7. Sacral wound. 8. Moderate protein calorie malnutrition. PLAN: 1. Adjust antimicrobials. 2. ID consultation. 3. Monitor hemoglobin. No transfusions due to [employer] status. 4. Gastrointestinal consult for panendoscopy. 5. Respiratory hygiene. 6. Titrate cardiovascular regimen based on clinical parameters. Yvan Encarnacion M.D. DR: DELVIN JOB#: [id number] CC:
[2018-11-06] MEDS: Albuterol/Ipratropium 3ml neb HHN SCH ×3 (03:00→11:54)
[2018-11-06 04:00] VITALS: BP 117/71
[2018-11-06 06:41] LABS: HEMATOCRIT 29.4 % (42.0-52.0); HEMOGLOBIN 8.8 G/DL (14.2-18.0); MEAN CORPUSCULAR VOLUME 72 FL (80-99); PLATELET COUNT 306 K/UL (150-450)
[2018-11-06 06:42] LABS: ANION GAP 6 mmol/L (5-15); BLOOD UREA NITROGEN 25 mg/dL (7-18); CALCIUM 10.1 MG/DL (8.5-10.1); CARBON DIOXIDE 30 MMOL/L (21-32); CHLORIDE 105 MMOL/L (98-107); CREATININE 1.3 MG/DL (0.55-1.30); POTASSIUM 4.2 MMOL/L (3.5-5.1); SODIUM 141 MMOL/L (136-145)
--- NOTE | 2018-11-06 07:13 | General Progress Note ---
Assessment/Plan Problem List: (1) PNA (pneumonia) ICD Codes: J18.9 - Pneumonia, unspecified organism SNOMED: 069478753 (2) Chronic obstructive pulmonary disease ICD Codes: J44.9 - Chronic obstructive pulmonary disease, unspecified SNOMED: 98188540 (3) Elevated troponin ICD Codes: R74.8 - Elevated troponin SNOMED: 850615278 (4) Acute exacerbation of CHF (congestive heart failure) ICD Codes: I50.9 - Heart failure, unspecified SNOMED: 12084410 (5) Dyspnea on exertion (6) COPD exacerbation ICD Codes: J44.1 - Chronic obstructive pulmonary disease with (acute) exacerbation SNOMED: 164444894 Status: stable, progressing Assessment/Plan: cont resp care o2 resp rx monitor for bleeding ID for abx BP rx Subjective ROS Limited/Unobtainable: No Constitutional: Reports: malaise, weakness HEENT: Reports: no symptoms Cardiovascular: Reports: no symptoms Respiratory: Reports: cough, shortness of breath Gastrointestinal/Abdominal: Reports: no symptoms Genitourinary: Reports: no symptoms Neurologic/Psychiatric: Reports: no symptoms Endocrine: Reports: no symptoms Hematologic/Lymphatic: Reports: anemia Allergies: Coded Allergies: No Known Allergies (Verified , 01/23/09) All Systems: reviewed and negative except above Subjective no complaints. decreased cough and congestion. +cultures. + infil on cxr. stool ob +. ambulates to the bathroom Objective Last 24 Hour Vital Signs Date Time Temp Pulse Resp B/P (MAP) Pulse Ox O2 Delivery O2 Flow Rate FiO2 11/06/18 04:00 97.5 61 18 117/71 (86) 98 11/06/18 03:00 Room Air 21 11/06/18 03:00 Room Air 11/06/18 02:21 Room Air 11/06/18 00:00 97.9 62 18 103/73 (83) 97 11/05/18 22:22 Room Air 21 11/05/18 22:22 Room Air 21 11/05/18 21:00 Room Air 11/05/18 20:00 97.7 61 18 103/64 (77) 11/05/18 19:55 Room Air 21 11/05/18 19:55 60 20 98 Room Air 21 11/05/18 16:00 98.1 65 18 124/80 (95) 97 11/05/18 15:11 Room Air 21 11/05/18 15:11 Room Air 21 11/05/18 12:00 98.0 68 19 126/77 (93) 98 11/05/18 11:06 Room Air 21 11/05/18 11:06 Room Air 21 11/05/18 09:21 97.1 11/05/18 09:00 Room Air 11/05/18 08:51 60 120/72 11/05/18 08:50 60 120/72 11/05/18 08:50 120/72 11/05/18 08:40 60 18 97 Room Air 21 11/05/18 08:38 61 17 96 Room Air 21 11/05/18 08:00 97.1 63 19 120/72 (88) 98 11/05/18 07:36 Room Air 21 11/05/18 07:36 Room Air 21 Intake and Output 11/05/18 11/06/18 19:00 07:00 Intake Total 1052.5 ml 860 ml Output Total 1820 ml Balance 1052.5 ml -960 ml Intake Oral 860 ml 860 ml IV Total 192.5 ml Output Urine Total 1820 ml # Voids 8 4 Laboratory Tests 11/06/18 05:20: White Blood Count 18.0H, Red Blood Count 4.10L, Hemoglobin 8.8L, Hematocrit 29.4L, Mean Corpuscular Volume 72L, Mean Corpuscular Hemoglobin 21.4L, Mean Corpuscular Hemoglobin Concent 29.9L, Red Cell Distribution Width 21.0H, Platelet Count 306, Mean Platelet Volume 6.2L, Neutrophils (%) (Auto) , Lymphocytes (%) (Auto) , Monocytes (%) (Auto) , Eosinophils (%) (Auto) , Basophils (%) (Auto) , Neutrophils % (Manual) [Pending], Lymphocytes % (Manual) [Pending], Platelet Estimate [Pending], Platelet Morphology [Pending], Sodium Level 141, Potassium Level 4.2, Chloride Level 105, Carbon Dioxide Level 30, Anion Gap 6, Blood Urea Nitrogen 25H, Creatinine 1.3, Estimat Glomerular Filtration Rate , Glucose Level 91, Calcium Level 10.1 Height (Feet): 6 Height (Inches): 2.00 Weight (Pounds): 216 General Appearance: WD/WN, alert Cardiovascular: normal rate Respiratory/Chest: rhonchi - bilaterally Abdomen: normal bowel sounds, non tender, soft, no organomegaly Edema: no edema noted Arm (L), no edema noted Arm (R), no edema noted Leg (L), no edema noted Leg (R), no edema noted Pedal (L), no edema noted Pedal (R), no edema noted Generalized Sumit Hallman MD Nov 06, 2018 07:13
--- NOTE | 2018-11-06 07:34 | NUR ---
NURSE NOTES: pt in bed with no sob nor in any form of distress noted. breathing regular and unlabored. no episode of bleeding noted. denies any pain at this time. bed in lowest position. call light within reach at all time. will continue to monitor.
[2018-11-06 08:00] VITALS: BP 114/70
[2018-11-06] MEDS: Losartan 50mg tab ORAL SCH (08:18)
[2018-11-06] MEDS: Amiodarone 200mg tab ORAL SCH (08:18)
[2018-11-06] MEDS: Metoprolol Succinate XL 25mg tab ORAL SCH (08:19)
[2018-11-06] MEDS: Breo Ellipta 100/25mcg - 14 dose INH SCH (08:21)
[2018-11-06] MEDS: HYDROcodone/Acetamin 10/325 tab ORAL PRN ×2 (08:24→20:42)
--- NOTE | 2018-11-06 08:28 | NUR ---
CASE MANAGEMENT:REVIEW 11/06/18 SI: COPD. PNA. CHF 97.8 63 18 114/70 99% ON RA WBC+18.0 H/H-8.8/29.4 IS: PREDNISONE PO QD IV LEVAQUIN Q24 IV VENOFER QHS DUONEB HHN Q4HRS RTC AMIODARONE PO QD NORVASC PO QD COZAAR PO QD TOPROL XL PO QD : MED/SURG STATUS 4EAST DCP: FROM HOME
[2018-11-06 12:00] VITALS: BP 110/75
[2018-11-06] MEDS ORDERED: Nulytely 4L ORAL SCH (13:00)
[2018-11-06] MEDS: Nystatin Susp 500,000 units/5ml ORAL SCH ×3 (13:46→20:42)
[2018-11-06 16:00] VITALS: BP 120/73
--- NOTE | 2018-11-06 16:53 | Surgery Progress Note ---
Surgery Progress Note Subjective Additional Comments afebrile, HD Stable, exam stable. doing well. wbc 18k Objective Last 24 Hour Vital Signs Date Time Temp Pulse Resp B/P (MAP) Pulse Ox O2 Delivery O2 Flow Rate FiO2 11/06/18 16:00 98.0 68 19 120/73 (89) 99 11/06/18 12:00 97.8 65 17 110/75 (87) 99 11/06/18 11:55 Room Air 21 11/06/18 11:54 Room Air 11/06/18 09:09 Room Air 11/06/18 08:54 97.8 11/06/18 08:31 63 18 99 Room Air 11/06/18 08:25 63 18 99 Room Air 21 11/06/18 08:21 63 18 99 Room Air 21 11/06/18 08:19 63 114/70 11/06/18 08:19 63 114/70 11/06/18 08:18 114/70 11/06/18 08:00 97.8 63 18 114/70 (85) 99 11/06/18 07:59 Room Air 21 11/06/18 07:59 Room Air 21 11/06/18 04:00 97.5 61 18 117/71 (86) 98 11/06/18 03:00 Room Air 21 11/06/18 03:00 Room Air 21 11/06/18 02:21 Room Air 11/06/18 00:00 97.9 62 18 103/73 (83) 97 11/05/18 22:22 Room Air 21 11/05/18 22:22 Room Air 21 11/05/18 21:00 Room Air 11/05/18 20:00 97.7 61 18 103/64 (77) 11/05/18 19:55 Room Air 11/05/18 19:55 60 20 98 Room Air 21 I&O Intake and Output 11/05/18 11/06/18 19:00 07:00 Intake Total 1052.5 ml 860 ml Output Total 1820 ml Balance 1052.5 ml -960 ml Intake Oral 860 ml 860 ml IV Total 192.5 ml Output Urine Total 1820 ml # Voids 8 4 Dressing: dry Wound: clean Drains: none Cardiovascular: RSR Respiratory: clear Abdomen: soft, present bowel sounds, non-distended Extremities: no tenderness, no cyanosis Laboratory Tests Test 11/06/18 05:20 White Blood Count 18.0 K/UL (4.8-10.8) H Red Blood Count 4.10 M/UL (4.70-6.10) L Hemoglobin 8.8 G/DL (14.2-18.0) L Hematocrit 29.4 % (42.0-52.0) L Mean Corpuscular Volume 72 FL (80-99) L Mean Corpuscular Hemoglobin 21.4 PG (27.0-31.0) L Mean Corpuscular Hemoglobin Concent 29.9 G/DL (32.0-36.0) L Red Cell Distribution Width 21.0 % (11.6-14.8) H Platelet Count 306 K/UL (150-450) Mean Platelet Volume 6.2 FL (6.5-10.1) L Neutrophils (%) (Auto) % (45.0-75.0) Lymphocytes (%) (Auto) % (20.0-45.0) Monocytes (%) (Auto) % (1.0-10.0) Eosinophils (%) (Auto) % (0.0-3.0) Basophils (%) (Auto) % (0.0-2.0) Differential Total Cells Counted 100 Neutrophils % (Manual) 84 % (45-75) H Lymphocytes % (Manual) 10 % (20-45) L Monocytes % (Manual) 6 % (1-10) Eosinophils % (Manual) 0 % (0-3) Basophils % (Manual) 0 % (0-2) Band Neutrophils 0 % (0-8) Nucleated Red Blood Cells 1 /100 WBC Platelet Estimate Adequate Platelet Morphology Normal Polychromasia 1+ Hypochromasia 1+ Anisocytosis 3+ Microcytosis 1+ Schistocytes Occasional Sodium Level 141 MMOL/L (136-145) Potassium Level 4.2 MMOL/L (3.5-5.1) Chloride Level 105 MMOL/L (98-107) Carbon Dioxide Level 30 MMOL/L (21-32) Anion Gap 6 mmol/L (5-15) Blood Urea Nitrogen 25 mg/dL (7-18) H Creatinine 1.3 MG/DL (0.55-1.30) Estimat Glomerular Filtration Rate mL/min (>60) Glucose Level 91 MG/DL (74-106) Calcium Level 10.1 MG/DL (8.5-10.1) Plan Problems: (1) Chronic obstructive pulmonary disease (2) Elevated troponin (3) UTI (lower urinary tract infection) (4) Acute exacerbation of CHF (congestive heart failure) (5) UTI (lower urinary tract infection) Assessment & Plan: uti leukocytosis (steroid ? 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 (13) Hemoptysis (14) Stroke (15) COPD exacerbation (16) Acute exacerbation of CHF (congestive heart failure) (17) Epistaxis (18) Sacral decubitus ulcer Assessment & Plan: This is a very pleasant 83 year old male who presented with full thickness sacral decubitus ulcer. Seems to have been a DTPI prior which has opened up. Patient states he knew something was forming in the area but unsure what. 4cm x 3cm area of partial thickness epidermal skin loss and small area of central full thickness with opening. mehrdad wound okay. serous drainage. some stool soilage. sacrum.25% slough at coccyx,75% pink granulation extending into R sacrum(L)4cm x (W)3cm. NO odor or exudate noted. An area that is purple and indurated noted inferior to base of wound(L)4cm x (W)2.5cm. Pt verbalized pain at site of wound and indurated area when minimally palpated. Both heels are dry and blanchable. Pt educated on wound prevention. encouraged to frequently turn side to side in bed to relieve pressure off buttocks. Instructed to avoid sliding against bed linens and to off-lift buttocks when repositioning.Pt denied bladder or bowel incontinence. Tx plan: discussed findings with patient. patient understands that this is a pressure injury. he is able to participate in exam and understands needs to off load pressure turn q2h air mattress ambulate as much as possible Cleanse wound with Saline. Apply Therahoney to area of slough. Apply Triad periwound .Cover with Optifoam drsg. Change every 3 days and prn. Encourage and assist as needed with repositioning at least every 2 hours or as tolerated. Off-load heels with pillow. will monitor while in hospital thank you Erlin Kearns Nov 06, 2018 16:53
--- NOTE | 2018-11-06 18:54 | General Progress Note ---
Assessment/Plan Status: stable, progressing Assessment/Plan: GI CONSULT Dictated Will schedule for EGD/Colon Tuesday Thank you Jacob Deleon MD Subjective Allergies: Coded Allergies: No Known Allergies (Verified , 01/23/09) Objective Last 24 Hour Vital Signs Date Time Temp Pulse Resp B/P (MAP) Pulse Ox O2 Delivery O2 Flow Rate FiO2 11/06/18 16:00 98.0 68 19 120/73 (89) 99 11/06/18 12:00 97.8 65 17 110/75 (87) 99 11/06/18 11:55 Room Air 21 11/06/18 11:54 Room Air 21 11/06/18 09:09 Room Air 11/06/18 08:54 97.8 11/06/18 08:31 63 18 99 Room Air 21 11/06/18 08:25 63 18 99 Room Air 21 11/06/18 08:21 63 18 99 Room Air 21 11/06/18 08:19 63 114/70 11/06/18 08:19 63 114/70 11/06/18 08:18 114/70 11/06/18 08:00 97.8 63 18 114/70 (85) 99 11/06/18 07:59 Room Air 21 11/06/18 07:59 Room Air 21 11/06/18 04:00 97.5 61 18 117/71 (86) 98 11/06/18 03:00 Room Air 21 11/06/18 03:00 Room Air 21 11/06/18 02:21 Room Air 11/06/18 00:00 97.9 62 18 103/73 (83) 97 11/05/18 22:22 Room Air 21 11/05/18 22:22 Room Air 21 11/05/18 21:00 Room Air 11/05/18 20:00 97.7 61 18 103/64 (77) 11/05/18 19:55 Room Air 21 11/05/18 19:55 60 20 98 Room Air 21 Intake and Output 11/05/18 11/06/18 19:00 07:00 Intake Total 1052.5 ml 860 ml Output Total 1820 ml Balance 1052.5 ml -960 ml Intake Oral 860 ml 860 ml IV Total 192.5 ml Output Urine Total 1820 ml # Voids 8 4 Laboratory Tests 11/06/18 05:20: White Blood Count 18.0H, Red Blood Count 4.10L, Hemoglobin 8.8L, Hematocrit 29.4L, Mean Corpuscular Volume 72L, Mean Corpuscular Hemoglobin 21.4L, Mean Corpuscular Hemoglobin Concent 29.9L, Red Cell Distribution Width 21.0H, Platelet Count 306, Mean Platelet Volume 6.2L, Neutrophils (%) (Auto) , Lymphocytes (%) (Auto) , Monocytes (%) (Auto) , Eosinophils (%) (Auto) , Basophils (%) (Auto) , Differential Total Cells Counted 100, Neutrophils % ( Manual) 84H, Lymphocytes % (Manual) 10L, Monocytes % (Manual) 6, Eosinophils % ( Manual) 0, Basophils % (Manual) 0, Band Neutrophils 0, Nucleated Red Blood Cells 1, Platelet Estimate Adequate, Platelet Morphology Normal, Polychromasia 1 +, Hypochromasia 1+, Anisocytosis 3+, Microcytosis 1+, Schistocytes Occasional, Sodium Level 141, Potassium Level 4.2, Chloride Level 105, Carbon Dioxide Level 30, Anion Gap 6, Blood Urea Nitrogen 25H, Creatinine 1.3, Estimat Glomerular Filtration Rate , Glucose Level 91, Calcium Level 10.1 Height (Feet): 6 Height (Inches): 2.00 Weight (Pounds): 216 Jacob Deleon MD Nov 06, 2018 18:54
[2018-11-06] MEDS ORDERED: Sorbitol Solution UD 30ml ORAL SCH (19:00)
--- NOTE | 2018-11-06 19:37 | NUR ---
NURSE NOTES: Received patient in bed , awake, alert, oriented, able to make his needs known, VSS, afebrile, call light is within reach, bed is in low position, locked, and alarm is on. Will continue to monitor for safety and comfort.
[2018-11-06 20:00] VITALS: BP 109/63
[2018-11-06] MEDS: Iron Sucrose 100 MG in NS 55 ML IV SCH (20:42)
[2018-11-06] MEDS: Atorvastatin 20mg tab ORAL SCH (20:42)
[2018-11-07 00:33] VITALS: BP 112/62
--- NOTE | 2018-11-07 03:30 | Progress Note ---
DATE: 11/06/2018 CARDIOLOGY PROGRESS NOTE SUBJECTIVE: Gastrointestinal consult appreciated. Stool occult blood positive. Severe iron deficiency noted with anemia. Panendoscopy is planned. OBJECTIVE: VITAL SIGNS: Blood pressure 110/75, pulse 65, respirations 17, and afebrile. Oxygen saturation on room air 99%. LUNGS: Coarse breath sounds. No wheezing. HEART: Regular rhythm and rate. Normal S1, S2 with a fourth heart sound. ABDOMEN: Soft. EXTREMITIES: No edema. LABORATORY DATA: White count 10 and hemoglobin 8.8. Potassium 4.2, BUN 25, and creatinine 1.3. IMPRESSION AND PLAN: 1. Stable for panendoscopy from cardiopulmonary standpoint. 2. We will continue medication titration and adjustments as recovery advances. 3. Antimicrobials on board for acute pulmonary and urologic infection. 4. The patient is a [employer] and does not accept any transfusion. 5. Intravenous iron continuing pending completion of GI workup. Yvan Encarnacion M.D. DR: AIYANA JOB#: [id number] CC:
[2018-11-07 04:00] VITALS: BP 130/76
--- NOTE | 2018-11-07 06:52 | NUR ---
HAND-OFF: Report given to Tahir RODRIGUEZ.
[2018-11-07] MEDS ORDERED: Nulytely 4L ORAL SCH (07:00)
--- NOTE | 2018-11-07 07:45 | General Progress Note ---
Assessment/Plan Problem List: (1) PNA (pneumonia) ICD Codes: J18.9 - Pneumonia, unspecified organism SNOMED: 298750634 (2) Chronic obstructive pulmonary disease ICD Codes: J44.9 - Chronic obstructive pulmonary disease, unspecified SNOMED: 53959302 (3) Elevated troponin ICD Codes: R74.8 - Elevated troponin SNOMED: 773287682 (4) Acute exacerbation of CHF (congestive heart failure) ICD Codes: I50.9 - Heart failure, unspecified SNOMED: 53001417 (5) Dyspnea on exertion (6) COPD exacerbation ICD Codes: J44.1 - Chronic obstructive pulmonary disease with (acute) exacerbation SNOMED: 713336712 Status: stable, progressing Assessment/Plan: cont resp care o2 resp rx monitor for bleeding iv abx BP rx monitor labs colonoscopy tomorrow Subjective ROS Limited/Unobtainable: No Constitutional: Reports: no symptoms HEENT: Reports: no symptoms Cardiovascular: Reports: no symptoms Respiratory: Reports: cough Gastrointestinal/Abdominal: Reports: no symptoms Genitourinary: Reports: no symptoms Neurologic/Psychiatric: Reports: no symptoms Endocrine: Reports: no symptoms Hematologic/Lymphatic: Reports: anemia Allergies: Coded Allergies: No Known Allergies (Verified , 01/23/09) All Systems: reviewed and negative except above Subjective no complaints. decreased cough and congestion. +cultures- urine and sputum. + infil on cxr. stool ob +. gi noted. cards noted Objective Last 24 Hour Vital Signs Date Time Temp Pulse Resp B/P (MAP) Pulse Ox O2 Delivery O2 Flow Rate FiO2 11/07/18 04:00 97.8 64 18 130/76 (94) 11/07/18 00:33 97.6 62 16 112/62 (79) 11/06/18 21:00 Room Air 11/06/18 20:00 98.1 61 14 109/63 (78) 11/06/18 16:00 98.0 68 19 120/73 (89) 99 11/06/18 12:00 97.8 65 17 110/75 (87) 99 11/06/18 11:55 Room Air 21 11/06/18 11:54 Room Air 21 11/06/18 09:09 Room Air 11/06/18 08:54 97.8 11/06/18 08:31 63 18 99 Room Air 21 11/06/18 08:25 63 18 99 Room Air 21 11/06/18 08:21 63 18 99 Room Air 21 11/06/18 08:19 63 114/70 11/06/18 08:19 63 114/70 11/06/18 08:18 114/70 11/06/18 08:00 97.8 63 18 114/70 (85) 99 11/06/18 07:59 Room Air 21 11/06/18 07:59 Room Air 21 Intake and Output 11/06/18 11/07/18 18:59 06:59 Intake Total 940 ml Balance 940 ml Intake Oral 840 ml IV Total 100 ml # Voids 6 Height (Feet): 6 Height (Inches): 2.00 Weight (Pounds): 216 Objective General Appearance: WD/WN, alert Cardiovascular: normal rate Respiratory/Chest: rhonchi - bilaterally Abdomen: normal bowel sounds, non tender, soft, no organomegaly Edema: no edema noted Arm (L), no edema noted Arm (R), no edema noted Leg (L), no edema noted Leg (R), no edema noted Pedal (L), no edema noted Pedal (R), no edema noted Generalized Sumit Hallman MD Nov 07, 2018 07:45
[2018-11-07 08:00] VITALS: BP 104/69
[2018-11-07] MEDS: Metoprolol Succinate XL 25mg tab ORAL SCH (08:47)
[2018-11-07] MEDS: Losartan 50mg tab ORAL SCH (08:47)
[2018-11-07] MEDS: Amiodarone 200mg tab ORAL SCH (08:54)
[2018-11-07] MEDS: HYDROcodone/Acetamin 10/325 tab ORAL PRN ×2 (08:54→20:50)
[2018-11-07] MEDS: Nystatin Susp 500,000 units/5ml ORAL SCH ×4 (08:54→20:50)
[2018-11-07] MEDS: Breo Ellipta 100/25mcg - 14 dose INH SCH (09:26)
--- NOTE | 2018-11-07 10:06 | NUR ---
NURSE NOTES: pt started bowel prep. provided bed side commode at bedside. denies any pain at this time. call light within reach at all time. will continue to monitor
--- NOTE | 2018-11-07 11:09 | Infectious Diseases Prog Note ---
"Assessment/Plan Assessment/Plan antibiotics : levoquin A 1. citrobacter | stenotrophomonas pneumonia 2. aerococcus urinae UTI 3. leucocytosis increased likely secondary to steroids 4. COPD 5. CHF P 1. continue po levoquin 5 more days 2. will follow up cultures Subjective Constitutional: Denies: fever, chills Respiratory: Reports: shortness of breath - decreased, productive cough - decreased Gastrointestinal/Abdominal: Denies: nausea, vomiting, diarrhea Musculoskeletal: Denies: pain Allergies: Coded Allergies: No Known Allergies (Verified , 01/23/09) Objective Vital Signs Last 24 Hour Vital Signs Date Time Temp Pulse Resp B/P (MAP) Pulse Ox O2 Delivery O2 Flow Rate FiO2 11/07/18 09:27 67 20 98 Room Air 21 11/07/18 09:26 67 20 97 Room Air 21 11/07/18 09:24 97.8 11/07/18 09:00 Room Air 11/07/18 08:47 61 104/69 11/07/18 08:47 104/69 11/07/18 08:46 61 104/69 11/07/18 08:00 97.7 61 18 104/69 (81) 11/07/18 04:00 97.8 64 18 130/76 (94) 11/07/18 00:33 97.6 62 16 112/62 (79) 11/06/18 21:00 Room Air 11/06/18 20:00 98.1 61 14 109/63 (78) 11/06/18 16:00 98.0 68 19 120/73 (89) 99 11/06/18 12:00 97.8 65 17 110/75 (87) 99 11/06/18 11:55 Room Air 21 11/06/18 11:54 Room Air 21 Height (Feet): 6 Height (Inches): 2.00 Weight (Pounds): 216 Respiratory/Chest: lungs clear Cardiovascular: normal rate, regular rhythm, no gallop/murmur Abdomen: soft, non tender Extremities: no edema Current Medications Medications (Trade) Dose Ordered Sig/Susie Route PRN Reason Start Time Stop Time Status Last Admin Dose Admin Acetaminophen/ Hydrocodone Bitart ([place] 10/325) 1 tab BIDPRN PRN ORAL For Pain 10/31/18 21:00 11/07/18 20:59 11/07/18 08:54 Amiodarone HCl (Cordarone) 200 mg DAILY ORAL 11/01/18 09:00 12/01/18 08:59 11/07/18 08:54 Amlodipine Besylate (Norvasc) 5 mg DAILY ORAL 11/01/18 09:00 12/01/18 08:59 11/05/18 08:51 Atorvastatin Calcium (Lipitor) 20 mg BEDTIME ORAL 11/01/18 21:00 12/01/18 20:59 11/06/18 20:42 Ergocalciferol (Drisdol) 50,000 intlu QWEEK ORAL 11/03/18 11:00 12/03/18 10:59 11/03/18 12:13 Finasteride (Proscar) 5 mg DAILY ORAL 11/01/18 09:00 12/01/18 08:59 11/07/18 08:54 Fluticasone/ Vilanterol (Breo Ellipta 100/25) 1 puff DAILY INH 11/01/18 09:00 12/01/18 08:59 11/07/18 09:26 Iron Sucrose 100 mg/Sodium Chloride 60 ml @ 240 mls/hr BEDTIME IV 11/03/18 21:00 11/07/18 21:14 11/06/18 20:42 Levofloxacin 100 ml @ 100 mls/hr Q24H IVPB 11/06/18 09:00 11/13/18 08:59 11/07/18 08:54 Losartan Potassium (Cozaar) 100 mg DAILY ORAL 11/01/18 09:00 12/01/18 08:59 11/06/18 08:18 Metoprolol Succinate (Toprol XL) 25 mg DAILY ORAL 11/01/18 09:00 12/01/18 08:59 11/05/18 08:50 Nystatin (Nystatin) 5 ml QID ORAL 11/06/18 14:00 11/13/18 13:59 11/07/18 08:54 Pantoprazole (Protonix) 40 mg DAILY ORAL 11/07/18 09:00 12/07/18 08:59 11/07/18 08:54 Polyethylene Glycol/ Electrolytes (Nulytely) 4,000 ml ONCE ORAL 11/07/18 07:00 11/07/18 23:59 11/07/18 08:53 Prednisone (predniSONE) 10 mg DAILY ORAL 11/06/18 09:00 12/06/18 08:59 11/07/18 08:54 Temazepam (Restoril) 15 mg HSPRN PRN ORAL Insomnia 10/31/18 21:30 11/07/18 21:29 11/06/18 23:35 Otis Viveros MD Nov 07, 2018 11:09"
[2018-11-07] MEDS ORDERED: Tubing IV Secondary IV ONE (11:29)
[2018-11-07 12:00] VITALS: BP 133/83
--- NOTE | 2018-11-07 13:26 | Surgery Progress Note ---
Surgery Progress Note Subjective Symptoms: improved, tolerating diet, voiding well, BM Objective Last 24 Hour Vital Signs Date Time Temp Pulse Resp B/P (MAP) Pulse Ox O2 Delivery O2 Flow Rate FiO2 11/07/18 12:00 97.8 64 18 133/83 (100) 100 11/07/18 09:27 67 20 98 Room Air 21 11/07/18 09:26 67 20 97 Room Air 21 11/07/18 09:24 97.8 11/07/18 09:00 Room Air 11/07/18 08:47 61 104/69 11/07/18 08:47 104/69 11/07/18 08:46 61 104/69 11/07/18 08:00 97.7 61 18 104/69 (81) 11/07/18 04:00 97.8 64 18 130/76 (94) 11/07/18 00:33 97.6 62 16 112/62 (79) 11/06/18 21:00 Room Air 11/06/18 20:00 98.1 61 14 109/63 (78) 11/06/18 16:00 98.0 68 19 120/73 (89) 99 I&O Intake and Output 11/06/18 11/07/18 19:00 07:00 Intake Total 940 ml Balance 940 ml Intake Oral 840 ml IV Total 100 ml # Voids 6 Dressing: dry Wound: clean, dry Cardiovascular: RSR Respiratory: clear Abdomen: soft, flat, non-tender, present bowel sounds Extremities: no edema, no tenderness, no cyanosis Plan Problems: (1) Chronic obstructive pulmonary disease (2) Elevated troponin (3) UTI (lower urinary tract infection) (4) Acute exacerbation of CHF (congestive heart failure) (5) UTI (lower urinary tract infection) Assessment & Plan: uti leukocytosis (steroid ? 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 (13) Hemoptysis (14) Stroke (15) COPD exacerbation (16) Acute exacerbation of CHF (congestive heart failure) (17) Epistaxis (18) Sacral decubitus ulcer Assessment & Plan: This is a very pleasant 83 year old male who presented with full thickness sacral decubitus ulcer. Seems to have been a DTPI prior which has opened up. Patient states he knew something was forming in the area but unsure what. 4cm x 3cm area of partial thickness epidermal skin loss and small area of central full thickness with opening. mehrdad wound okay. serous drainage. some stool soilage. sacrum.25% slough at coccyx,75% pink granulation extending into R sacrum(L)4cm x (W)3cm. NO odor or exudate noted. An area that is purple and indurated noted inferior to base of wound(L)4cm x (W)2.5cm. Pt verbalized pain at site of wound and indurated area when minimally palpated. Both heels are dry and blanchable. Pt educated on wound prevention. encouraged to frequently turn side to side in bed to relieve pressure off buttocks. Instructed to avoid sliding against bed linens and to off-lift buttocks when repositioning.Pt denied bladder or bowel incontinence. Tx plan: discussed findings with patient. patient understands that this is a pressure injury. he is able to participate in exam and understands needs to off load pressure turn q2h air mattress ambulate as much as possible Cleanse wound with Saline. Apply Therahoney to area of slough. Apply Triad periwound .Cover with Optifoam drsg. Change every 3 days and prn. Encourage and assist as needed with repositioning at least every 2 hours or as tolerated. Off-load heels with pillow. will monitor while in hospital thank you Erlin Kearns Nov 07, 2018 13:26
[2018-11-07 16:00] VITALS: BP 131/78
--- NOTE | 2018-11-07 19:05 | NUR ---
HAND-OFF: Report given to JENNIFER Tovar.
--- NOTE | 2018-11-07 19:38 | NUR ---
NURSE NOTES: Received patient in bed, awake, alert, oriented, able to make his needs known, no acute distress noted, VSS, afebrile. Call light is within reach, bed is locked and alarm is on. Will continue to monitor for safety and comfort.
[2018-11-07 20:00] VITALS: BP 146/74
[2018-11-07] MEDS: Atorvastatin 20mg tab ORAL SCH (20:51)
[2018-11-07] MEDS: Iron Sucrose 100 MG in NS 55 ML IV SCH (21:00)
--- NOTE | 2018-11-07 21:09 | General Progress Note ---
Assessment/Plan Status: stable, progressing Assessment/Plan: Assessment - Iron deficiency anemia - OB (+) stools - normal CEA - Jehova's witness Recommendations - clear liquid - abx - IV Iron - GI tract preparation - EGD/Colon in am Subjective Allergies: Coded Allergies: No Known Allergies (Verified , 01/23/09) Subjective Feels OK (+) BM on clears for colonoscopy confirmed with this Jehova's witness patient that no transfusion of blood products are to be given, even if the alternative outcome would be Objective Last 24 Hour Vital Signs Date Time Temp Pulse Resp B/P (MAP) Pulse Ox O2 Delivery O2 Flow Rate FiO2 11/07/18 16:00 97.4 62 18 131/78 (95) 99 11/07/18 12:00 97.8 64 18 133/83 (100) 100 11/07/18 09:27 67 20 98 Room Air 21 11/07/18 09:26 67 20 97 Room Air 21 11/07/18 09:24 97.8 11/07/18 09:00 Room Air 11/07/18 08:47 61 104/69 11/07/18 08:47 104/69 11/07/18 08:46 61 104/69 11/07/18 08:00 97.7 61 18 104/69 (81) 11/07/18 04:00 97.8 64 18 130/76 (94) 11/07/18 00:33 97.6 62 16 112/62 (79) Intake and Output 11/06/18 11/07/18 19:00 07:00 Intake Total 940 ml Balance 940 ml Intake Oral 840 ml IV Total 100 ml # Voids 6 Height (Feet): 6 Height (Inches): 2.00 Weight (Pounds): 216 Objective WDWN NCAT supple CTA RRR abd soft ND No edema non focal Jacob Deleon MD Nov 07, 2018 21:09
[2018-11-08] VITALS (10 sets, daily range): BP systolic 100–144; BP diastolic 60–89
[2018-11-08 06:28] LABS: BASOPHILS % (AUTO) 0.3 % (0.0-2.0); EOSINOPHILS % (AUTO) 0.7 % (0.0-3.0); HEMATOCRIT 31.5 % (42.0-52.0); HEMOGLOBIN 9.4 G/DL (14.2-18.0); LYMPHOCYTES % (AUTO) 10.9 % (20.0-45.0); MEAN CORPUSCULAR VOLUME 73 FL (80-99); MONOCYTES % (AUTO) 7.6 % (1.0-10.0); NEUTROPHILS % (AUTO) 80.6 % (45.0-75.0); PLATELET COUNT 288 K/UL (150-450); RED BLOOD COUNT 4.34 M/UL (4.70-6.10); RED CELL DISTRIBUTION WIDTH 23.5 % (11.6-14.8); WHITE BLOOD COUNT 11.9 K/UL (4.8-10.8)
[2018-11-08 06:53] LABS: ALANINE AMINOTRANSFERASE 28 U/L (12-78); ALBUMIN 2.7 G/DL (3.4-5.0); ALBUMIN/GLOBULIN RATIO 0.7 (1.0-2.7); ALKALINE PHOSPHATASE 48 U/L (46-116); ANION GAP 7 mmol/L (5-15); ASPARTATE AMINO TRANSFERASE 19 U/L (15-37); BILIRUBIN,TOTAL 0.9 MG/DL (0.2-1.0); BLOOD UREA NITROGEN 13 mg/dL (7-18); CALCIUM 10.1 MG/DL (8.5-10.1); CARBON DIOXIDE 30 MMOL/L (21-32); CHLORIDE 108 MMOL/L (98-107); CREATININE 1.1 MG/DL (0.55-1.30); SODIUM 145 MMOL/L (136-145)
--- NOTE | 2018-11-08 06:58 | Anethesia Preoperative Eval ---
Anesthesia Pre-op PMH/ROS General Date of Evaluation: Nov 08, 2018 Anesthesiologist: Fadi ASA Score: ASA 4 Mallampati Score Class I : Soft palate, uvula, fauces, pillars visible Class II: Soft palate, uvula, fauces visible Class III: Soft palate, base of uvula visible Class IV: Only hard plate visible Mallampati Classification: Class IV Surgeon: Adrienne Diagnosis: Anemia Surgical Procedure: EGD and colonoscopy Anesthesia History: none Family History: no anesthesia problems Allergies: Coded Allergies: No Known Allergies (Verified , 01/23/09) Medications: see eMAR Patient NPO?: Yes NPO Date: Nov 07, 2018 NPO Time: 22:00 Past Medical History Cardiovascular: Reports: HTN, CAD - s/p stent X1, arrhythmia - paroxysmal afib s/p pacemaker placement, other - CHF, h/o aortic aneurysm s/p repair, HLD; Denies: LA, valve dz Pulmonary: Reports: COPD, other - paroxysmal bronchospasm; Denies: asthma, [place] Gastrointestinal/Genitourinary: Denies: GERD, CRI, ESRD, other Neurologic/Psychiatric: Reports: dementia - mild; Denies: CVA, depression/anxiety, TIA, other Endocrine: Denies: DM, hypothyroidism, steroids, other HEENT: Reports: other - chronic CROSS, CT head-clear; Denies: cataract (L), cataract (R), glaucoma, DOUGLAS (L), DOUGLAS (R) Hematology/Immune: Reports: anemia - chronic; Denies: DVT, bleeding disorder, other Musculoskeletal/Integumentary: Reports: RA; Denies: OA, DJD, DDD, edema, other Other: obesity, other - gout PSxH Narrative: pacemaker, aortic valve repair, T&A, bilateral cataract Anesthesia Pre-op Phys. Exam Physician Exam Last Vital Signs Date Time Temp Pulse Resp B/P (MAP) Pulse Ox O2 Delivery O2 Flow Rate FiO2 11/08/18 04:39 97.8 61 18 128/71 (90) 11/07/18 21:00 Room Air 11/07/18 16:00 99 11/07/18 09:27 21 Constitutional: NAD Cardiovascular: RRR Respiratory: CTA Airway Exam Mallampati Score: Class III MO: limited ROM: limited Anesthesia Pre-op A/P Labs Hematology Test 11/08/18 05:10 White Blood Count 11.9 K/UL (4.8-10.8) H Red Blood Count 4.34 M/UL (4.70-6.10) L Hemoglobin 9.4 G/DL (14.2-18.0) L Hematocrit 31.5 % (42.0-52.0) L Mean Corpuscular Volume 73 FL (80-99) L Mean Corpuscular Hemoglobin 21.8 PG (27.0-31.0) L Mean Corpuscular Hemoglobin Concent 30.0 G/DL (32.0-36.0) L Red Cell Distribution Width 23.5 % (11.6-14.8) H Platelet Count 288 K/UL (150-450) Mean Platelet Volume 6.4 FL (6.5-10.1) L Neutrophils (%) (Auto) 80.6 % (45.0-75.0) H Lymphocytes (%) (Auto) 10.9 % (20.0-45.0) L Monocytes (%) (Auto) 7.6 % (1.0-10.0) Eosinophils (%) (Auto) 0.7 % (0.0-3.0) Basophils (%) (Auto) 0.3 % (0.0-2.0) Chemistry Test 11/08/18 05:10 Sodium Level Pending Potassium Level Pending Chloride Level Pending Carbon Dioxide Level Pending Blood Urea Nitrogen Pending Creatinine Pending Estimat Glomerular Filtration Rate Pending Glucose Level Pending Calcium Level Pending Magnesium Level Pending Total Bilirubin Pending Aspartate Amino Transf (AST/SGOT) Pending Alanine Aminotransferase (ALT/SGPT) Pending Alkaline Phosphatase Pending Total Protein Pending Albumin Pending Globulin Pending Studies Pre-op Studies: EKG - afib, CXR - hyperinflation, possible congestion vs atelectasis, other - CT head- no acute process Risk Assessment & Plan Assessment: ASA IV Plan: MAC Status Change Before Surgery: No Pre-Antibiotics Drug: N/A Janice Armenta MD Nov 08, 2018 06:58
[2018-11-08] MEDS ORDERED: DiphenhydrAMINE 50mg/ml Inj IVP PRN (07:00)
[2018-11-08] MEDS ORDERED: LR 1000ml 1,000 ML IVLG SCH (07:00)
--- NOTE | 2018-11-08 07:33 | NUR ---
HAND-OFF: Report given to Petty RODRIGUEZ.
--- NOTE | 2018-11-08 07:33 | NUR ---
NURSE NOTES: Endorsed to am nurse that a tech called from GI lab stating that per anesthesiologist patient to take his 10 mg dose of prednisone as soon as possible prior to his procedure this morning.
--- NOTE | 2018-11-08 07:44 | General Progress Note ---
Assessment/Plan Problem List: (1) PNA (pneumonia) ICD Codes: J18.9 - Pneumonia, unspecified organism SNOMED: 281474451 (2) Chronic obstructive pulmonary disease ICD Codes: J44.9 - Chronic obstructive pulmonary disease, unspecified SNOMED: 40943927 (3) Elevated troponin ICD Codes: R74.8 - Elevated troponin SNOMED: 487907423 (4) Acute exacerbation of CHF (congestive heart failure) ICD Codes: I50.9 - Heart failure, unspecified SNOMED: 44168943 (5) Dyspnea on exertion (6) COPD exacerbation ICD Codes: J44.1 - Chronic obstructive pulmonary disease with (acute) exacerbation SNOMED: 799452472 Status: stable, progressing Assessment/Plan: cont resp care o2 resp rx monitor for bleeding iv abx per id BP rx monitor labs colonoscopy Subjective ROS Limited/Unobtainable: No Constitutional: Reports: malaise, weakness HEENT: Reports: no symptoms Cardiovascular: Reports: no symptoms Respiratory: Reports: cough Gastrointestinal/Abdominal: Reports: no symptoms Genitourinary: Reports: no symptoms Neurologic/Psychiatric: Reports: no symptoms Endocrine: Reports: no symptoms Hematologic/Lymphatic: Reports: anemia Allergies: Coded Allergies: No Known Allergies (Verified , 01/23/09) All Systems: reviewed and negative except above Subjective no new complaints. npo for endoscopy. no fever or chills. no cough. on iv abx. h /h trending up Objective Last 24 Hour Vital Signs Date Time Temp Pulse Resp B/P (MAP) Pulse Ox O2 Delivery O2 Flow Rate FiO2 11/08/18 04:39 97.8 61 18 128/71 (90) 11/08/18 00:37 97.8 66 18 124/66 (85) 11/07/18 21:00 Room Air 11/07/18 20:00 97.6 68 18 146/74 (98) 11/07/18 16:00 97.4 62 18 131/78 (95) 99 11/07/18 12:00 97.8 64 18 133/83 (100) 100 11/07/18 09:27 67 20 98 Room Air 21 11/07/18 09:26 67 20 97 Room Air 21 11/07/18 09:24 97.8 11/07/18 09:00 Room Air 11/07/18 08:47 61 104/69 11/07/18 08:47 /11/07/18 08:46 61 /11/07/18 08:00 97.7 61 18 / (81) Intake and Output 11/07/18 11/08/18 18:59 06:59 Intake Total 700 ml Output Total 700 ml Balance 0 ml Intake Oral 600 ml IV Total 100 ml Output Urine Total 700 ml # Voids 2 # Bowel Movements 7 Laboratory Tests 11/08/18 05:10: White Blood Count 11.9H, Red Blood Count 4.34L, Hemoglobin 9.4L, Hematocrit 31.5L, Mean Corpuscular Volume 73L, Mean Corpuscular Hemoglobin 21.8L, Mean Corpuscular Hemoglobin Concent 30.0L, Red Cell Distribution Width 23.5H, Platelet Count 288, Mean Platelet Volume 6.4L, Neutrophils (%) (Auto) 80.6H, Lymphocytes (%) (Auto) 10.9L, Monocytes (%) (Auto) 7.6, Eosinophils (%) (Auto) 0.7, Basophils (%) (Auto) 0.3, Sodium Level 145, Potassium Level 4.0, Chloride Level 108H, Carbon Dioxide Level 30, Anion Gap 7, Blood Urea Nitrogen 13, Creatinine 1.1, Estimat Glomerular Filtration Rate , Glucose Level 71L, Calcium Level 10.1, Magnesium Level 1.8, Total Bilirubin 0.9, Aspartate Amino Transf ( AST/SGOT) 19, Alanine Aminotransferase (ALT/SGPT) 28, Alkaline Phosphatase 48, Total Protein 6.7, Albumin 2.7L, Globulin 4.0, Albumin/Globulin Ratio 0.7L Height (Feet): 6 Height (Inches): 2.00 Weight (Pounds): 216 Objective General Appearance: WD/WN, alert Cardiovascular: normal rate Respiratory/Chest: rhonchi - bilaterally Abdomen: normal bowel sounds, non tender, soft, no organomegaly Edema: no edema noted Arm (L), no edema noted Arm (R), no edema noted Leg (L), no edema noted Leg (R), no edema noted Pedal (L), no edema noted Pedal (R), no edema noted Generalized Sumit Hallman MD Nov 08, 2018 07:44
--- NOTE | 2018-11-08 07:46 | NUR ---
CASE MANAGEMENT:REVIEW 11/08/18 SI: COPD. PNA. CHF PRESSURE ULCER. ANEMIA 97.8 61 18 128/71 99% ON RA WBC+11.9 H/H-9.4/31.5 IS: PREDNISONE PO QD IV LEVAQUIN Q24 AMIODARONE PO QD NORVASC PO QD COZAAR PO QD TOPROL XL PO QD : MED/SURG STATUS 4EAST DCP: FROM HOME PLAN: EGD/COLONOSCOPY TODAY ~ HAD LOW H/H
--- NOTE | 2018-11-08 07:55 | NUR ---
NURSE NOTES: Patient awake , alert x4; on room air, no sign of distress and shortness of breath; no sing of chest pain; IV Left-Hand 24G flushes well; urinal and commond within reach; patient scheduled for Colonoscopy, consent on file; PM nurse recevied a call from GI lab to give Prednisone 10MG before the Colonoscopy; side rails up x2, breaks engaged, bed at lowest position; call light within reach; will keep monitoring.
[2018-11-08] MEDS ORDERED: Albuterol 90mcg Inhaler 8gm INH ONE (08:09)
[2018-11-08] MEDS: Losartan 50mg tab ORAL SCH (09:00)
[2018-11-08] MEDS ORDERED: Lidocaine 1% MPF 10mg/ml 5ml ONE (09:00)
[2018-11-08] MEDS ORDERED: NS 500ML IVPB ONE (09:00)
[2018-11-08] MEDS: Metoprolol Succinate XL 25mg tab ORAL SCH (09:00)
[2018-11-08] MEDS: Nystatin Susp 500,000 units/5ml ORAL SCH ×4 (09:00→20:47)
[2018-11-08] MEDS ORDERED: Propofol 200mg/20ml IV ONE (09:00)
[2018-11-08] MEDS: Amiodarone 200mg tab ORAL SCH (09:00)
--- NOTE | 2018-11-08 09:00 | General Progress Note ---
Assessment/Plan Status: stable, progressing Assessment/Plan: Assessment - Iron deficiency anemia - OB (+) stools - normal CEA - Jehova's witness Recommendations - NPO - abx - IV Iron - monitor CBC - EGD/Colon today POST PROCEDURE ADDENDUM EGD; Normal except for small incidental hiatal hernia Colon: Redundant colon, no lesions seen to explain anemia Subjective Allergies: Coded Allergies: No Known Allergies (Verified , 01/23/09) Subjective Feels OK NPO for EGD and Colonoscopy Objective Last 24 Hour Vital Signs Date Time Temp Pulse Resp B/P (MAP) Pulse Ox O2 Delivery O2 Flow Rate FiO2 11/08/18 08:00 98.0 60 18 111/71 (84) 97 11/08/18 04:39 97.8 61 18 128/71 (90) 11/08/18 00:37 97.8 66 18 124/66 (85) 11/07/18 21:00 Room Air 11/07/18 20:00 97.6 68 18 146/74 (98) 11/07/18 16:00 97.4 62 18 131/78 (95) 99 11/07/18 12:00 97.8 64 18 133/83 (100) 100 11/07/18 09:27 67 20 98 Room Air 21 11/07/18 09:26 67 20 97 Room Air 21 11/07/18 09:24 97.8 Intake and Output 11/07/18 11/08/18 18:59 06:59 Intake Total 700 ml Output Total 700 ml Balance 0 ml Intake Oral 600 ml IV Total 100 ml Output Urine Total 700 ml # Voids 2 # Bowel Movements 7 Laboratory Tests 11/08/18 05:10: White Blood Count 11.9H, Red Blood Count 4.34L, Hemoglobin 9.4L, Hematocrit 31.5L, Mean Corpuscular Volume 73L, Mean Corpuscular Hemoglobin 21.8L, Mean Corpuscular Hemoglobin Concent 30.0L, Red Cell Distribution Width 23.5H, Platelet Count 288, Mean Platelet Volume 6.4L, Neutrophils (%) (Auto) 80.6H, Lymphocytes (%) (Auto) 10.9L, Monocytes (%) (Auto) 7.6, Eosinophils (%) (Auto) 0.7, Basophils (%) (Auto) 0.3, Sodium Level 145, Potassium Level 4.0, Chloride Level 108H, Carbon Dioxide Level 30, Anion Gap 7, Blood Urea Nitrogen 13, Creatinine 1.1, Estimat Glomerular Filtration Rate , Glucose Level 71L, Calcium Level 10.1, Magnesium Level 1.8, Total Bilirubin 0.9, Aspartate Amino Transf ( AST/SGOT) 19, Alanine Aminotransferase (ALT/SGPT) 28, Alkaline Phosphatase 48, Total Protein 6.7, Albumin 2.7L, Globulin 4.0, Albumin/Globulin Ratio 0.7L Height (Feet): 6 Height (Inches): 2.00 Weight (Pounds): 216 Objective WDWN NCAT supple CTA RRR abd soft ND No edema non focal Jacob Deleon MD Nov 08, 2018 09:00
--- NOTE | 2018-11-08 09:02 | Pre-Procedure Note/Attestation ---
Pre-Procedure Note/Attestation Complete Prior to Procedure Planned Procedure: not applicable Procedure Narrative: esophagogastroduodenoscopy colon Indications for Procedure Pre-Operative Diagnosis: anemia Attestation I attest that I discussed the nature of the procedure; its benefits; risks and complications; and alternatives (and the risks and benefits of such alternatives ), prior to the procedure, with the patient (or the patient's legal customer care representative). I attest that, the patient has stated that he is a Jehova Witness and declines to have a transfusion even if his life is at risk I attest that I re-evaluated the patient just prior to the surgery and that there has been no change in the patient's H&P, except as documented below: Jacob Deleon MD Nov 08, 2018 09:02
[2018-11-08] MEDS: Breo Ellipta 100/25mcg - 14 dose INH SCH (09:35)
--- NOTE | 2018-11-08 10:23 | Immediate Post-Op Evaluation ---
Immediate Post-Op Evalulation Immediate Post-Op Evalulation Procedure: EGD and colonoscopy Date of Evaluation: Nov 08, 2018 Time of Evaluation: 10:24 IV Fluids: 200 Blood Products: 0 Estimated Blood Loss: 0 Urinary Output: 0 Blood Pressure Systolic: 144 Blood Pressure Diastolic: 81 Pulse Rate: 62 Respiratory Rate: 16 O2 Sat by Pulse Oximetry: 100 Temperature (Fahrenheit): 97.3 Pain Score (1-10): 0 Nausea: No Vomiting: No Complications 0 Patient Status: awake, reacts, patent, none Hydration Status: adequate Drug: N/A Janice Armenta MD Nov 08, 2018 10:23
--- NOTE | 2018-11-08 10:24 | 48 Hour Post Anesthesia Eval ---
Post Anesthesia Evaluation Procedure: EGD and colonoscopy Date of Evaluation: Nov 08, 2018 Airway: patent Nausea: No Vomiting: No Hydration Status: adequate Cardiopulmonary Status: at baseline Mental Status/LOC: patient returned to baseline Post-Anesthesia Complications: 0 Follow-up care needed: N/A - further care as per primary team Janice Armenta MD Nov 08, 2018 10:24
--- NOTE | 2018-11-08 11:03 | Infectious Diseases Prog Note ---
"Assessment/Plan Assessment/Plan antibiotics : levoquin A 1. citrobacter | stenotrophomonas pneumonia 2. aerococcus urinae UTI 3. leucocytosis resolved 4. COPD 5. CHF P 1. continue po levoquin 4 more days 2. will follow up cultures Subjective Constitutional: Denies: fever, chills Respiratory: Reports: shortness of breath - decreased, productive cough - decreased Gastrointestinal/Abdominal: Denies: nausea, vomiting, diarrhea Musculoskeletal: Denies: pain Allergies: Coded Allergies: No Known Allergies (Verified , 01/23/09) Objective Vital Signs Last 24 Hour Vital Signs Date Time Temp Pulse Resp B/P (MAP) Pulse Ox O2 Delivery O2 Flow Rate FiO2 11/08/18 10:35 97.8 60 15 132/80 100 Room Air 11/08/18 10:29 60 15 144/77 100 Room Air 11/08/18 10:24 60 13 136/89 100 Room Air 11/08/18 10:23 62 16 100 11/08/18 10:19 97.3 61 15 144/81 100 Simple Mask 6 11/08/18 09:40 Room Air 21 11/08/18 09:40 Room Air 21 11/08/18 09:00 Room Air 11/08/18 08:00 98.0 60 18 111/71 (84) 97 11/08/18 04:39 97.8 61 18 128/71 (90) 11/08/18 00:37 97.8 66 18 124/66 (85) 11/07/18 21:00 Room Air 11/07/18 20:00 97.6 68 18 146/74 (98) 11/07/18 16:00 97.4 62 18 131/78 (95) 99 11/07/18 12:00 97.8 64 18 133/83 (100) 100 Height (Feet): 6 Height (Inches): 2.00 Weight (Pounds): 216 Respiratory/Chest: lungs clear Cardiovascular: normal rate, regular rhythm, no gallop/murmur Abdomen: soft, non tender Extremities: no edema Laboratory Tests Test 11/08/18 05:10 White Blood Count 11.9 K/UL (4.8-10.8) H Red Blood Count 4.34 M/UL (4.70-6.10) L Hemoglobin 9.4 G/DL (14.2-18.0) L Hematocrit 31.5 % (42.0-52.0) L Mean Corpuscular Volume 73 FL (80-99) L Mean Corpuscular Hemoglobin 21.8 PG (27.0-31.0) L Mean Corpuscular Hemoglobin Concent 30.0 G/DL (32.0-36.0) L Red Cell Distribution Width 23.5 % (11.6-14.8) H Platelet Count 288 K/UL (150-450) Mean Platelet Volume 6.4 FL (6.5-10.1) L Neutrophils (%) (Auto) 80.6 % (45.0-75.0) H Lymphocytes (%) (Auto) 10.9 % (20.0-45.0) L Monocytes (%) (Auto) 7.6 % (1.0-10.0) Eosinophils (%) (Auto) 0.7 % (0.0-3.0) Basophils (%) (Auto) 0.3 % (0.0-2.0) Sodium Level 145 MMOL/L (136-145) Potassium Level 4.0 MMOL/L (3.5-5.1) Chloride Level 108 MMOL/L (98-107) H Carbon Dioxide Level 30 MMOL/L (21-32) Anion Gap 7 mmol/L (5-15) Blood Urea Nitrogen 13 mg/dL (7-18) Creatinine 1.1 MG/DL (0.55-1.30) Estimat Glomerular Filtration Rate mL/min (>60) Glucose Level 71 MG/DL (74-106) L Calcium Level 10.1 MG/DL (8.5-10.1) Magnesium Level 1.8 MG/DL (1.8-2.4) Total Bilirubin 0.9 MG/DL (0.2-1.0) Aspartate Amino Transf (AST/SGOT) 19 U/L (15-37) Alanine Aminotransferase (ALT/SGPT) 28 U/L (12-78) Alkaline Phosphatase 48 U/L (46-116) Total Protein 6.7 G/DL (6.4-8.2) Albumin 2.7 G/DL (3.4-5.0) L Globulin 4.0 g/dL Albumin/Globulin Ratio 0.7 (1.0-2.7) L Current Medications Medications (Trade) Dose Ordered Sig/Susie Route PRN Reason Start Time Stop Time Status Last Admin Dose Admin Acetaminophen (Tylenol) 650 mg Q4H PRN ORAL Mild Pain (Pain Scale 1-3) 11/08/18 07:00 11/08/18 12:00 Amiodarone HCl (Cordarone) 200 mg DAILY ORAL 11/01/18 09:00 12/01/18 08:59 11/07/18 08:54 Amlodipine Besylate (Norvasc) 5 mg DAILY ORAL 11/01/18 09:00 12/01/18 08:59 11/05/18 08:51 Atorvastatin Calcium (Lipitor) 20 mg BEDTIME ORAL 11/01/18 21:00 12/01/18 20:59 11/07/18 20:51 Diphenhydramine HCl (Benadryl) 25 mg Q15M PRN IVP Itching 11/08/18 07:00 11/08/18 12:00 Ergocalciferol (Drisdol) 50,000 intlu QWEEK ORAL 11/03/18 11:00 12/03/18 10:59 11/03/18 12:13 Finasteride (Proscar) 5 mg DAILY ORAL 11/01/18 09:00 12/01/18 08:59 11/07/18 08:54 Fluticasone/ Vilanterol (Breo Ellipta 100/25) 1 puff DAILY INH 11/01/18 09:00 12/01/18 08:59 11/07/18 09:26 Hydralazine HCl (Apresoline) 5 mg Q30M PRN IV SBP>160 OR___/DBP>90 OR___ 11/08/18 07:00 11/08/18 12:00 Lactated Ringer's 1,000 ml @ 10 mls/hr Q24H IVLG 11/08/18 07:00 11/08/18 12:00 Levofloxacin 100 ml @ 100 mls/hr Q24H IVPB 11/06/18 09:00 11/13/18 08:59 11/07/18 08:54 Losartan Potassium (Cozaar) 100 mg DAILY ORAL 11/01/18 09:00 12/01/18 08:59 11/06/18 08:18 Metoprolol Succinate (Toprol XL) 25 mg DAILY ORAL 11/01/18 09:00 12/01/18 08:59 11/05/18 08:50 Nystatin (Nystatin) 5 ml QID ORAL 11/06/18 14:00 11/13/18 13:59 11/07/18 20:50 Pantoprazole (Protonix) 40 mg DAILY ORAL 11/07/18 09:00 12/07/18 08:59 11/07/18 08:54 Prednisone (predniSONE) 10 mg DAILY ORAL 11/06/18 09:00 12/06/18 08:59 11/08/18 08:18 Otis Viveros MD Nov 08, 2018 11:03"
--- NOTE | 2018-11-08 11:46 | NUR ---
NURSE NOTES: Patient back from Colonoscopy, I communicated MD Deleon to get a diet order. Waiting for order.
--- NOTE | 2018-11-08 12:15 | NUR ---
NURSE NOTES: called and spoke w dr Deleon re diet order cardiac diet order entered kitchen called
--- NOTE | 2018-11-08 13:52 | Surgery Progress Note ---
Surgery Progress Note Subjective Symptoms: improved, pain absent, tolerating diet, passing flatus, BM Objective Last 24 Hour Vital Signs Date Time Temp Pulse Resp B/P (MAP) Pulse Ox O2 Delivery O2 Flow Rate FiO2 11/08/18 12:00 97.7 60 18 130/74 (92) 95 11/08/18 10:35 97.8 60 15 132/80 100 Room Air 11/08/18 10:29 60 15 144/77 100 Room Air 11/08/18 10:24 60 13 136/89 100 Room Air 11/08/18 10:23 62 16 100 11/08/18 10:19 97.3 61 15 144/81 100 Simple Mask 6 11/08/18 09:40 Room Air 21 11/08/18 09:40 Room Air 21 11/08/18 09:00 Room Air 11/08/18 08:00 98.0 60 18 111/71 (84) 97 11/08/18 04:39 97.8 61 18 128/71 (90) 11/08/18 00:37 97.8 66 18 124/66 (85) 11/07/18 21:00 Room Air 11/07/18 20:00 97.6 68 18 146/74 (98) 11/07/18 16:00 97.4 62 18 131/78 (95) 99 I&O Intake and Output 11/07/18 11/08/18 19:00 07:00 Intake Total 700 ml Output Total 700 ml Balance 0 ml Intake Oral 600 ml IV Total 100 ml Output Urine Total 700 ml # Voids 2 # Bowel Movements 7 Dressing: dry Wound: clean Cardiovascular: RSR Respiratory: clear Abdomen: soft, non-tender, present bowel sounds Extremities: no tenderness, no cyanosis Laboratory Tests Test 11/08/18 05:10 White Blood Count 11.9 K/UL (4.8-10.8) H Red Blood Count 4.34 M/UL (4.70-6.10) L Hemoglobin 9.4 G/DL (14.2-18.0) L Hematocrit 31.5 % (42.0-52.0) L Mean Corpuscular Volume 73 FL (80-99) L Mean Corpuscular Hemoglobin 21.8 PG (27.0-31.0) L Mean Corpuscular Hemoglobin Concent 30.0 G/DL (32.0-36.0) L Red Cell Distribution Width 23.5 % (11.6-14.8) H Platelet Count 288 K/UL (150-450) Mean Platelet Volume 6.4 FL (6.5-10.1) L Neutrophils (%) (Auto) 80.6 % (45.0-75.0) H Lymphocytes (%) (Auto) 10.9 % (20.0-45.0) L Monocytes (%) (Auto) 7.6 % (1.0-10.0) Eosinophils (%) (Auto) 0.7 % (0.0-3.0) Basophils (%) (Auto) 0.3 % (0.0-2.0) Sodium Level 145 MMOL/L (136-145) Potassium Level 4.0 MMOL/L (3.5-5.1) Chloride Level 108 MMOL/L (98-107) H Carbon Dioxide Level 30 MMOL/L (21-32) Anion Gap 7 mmol/L (5-15) Blood Urea Nitrogen 13 mg/dL (7-18) Creatinine 1.1 MG/DL (0.55-1.30) Estimat Glomerular Filtration Rate mL/min (>60) Glucose Level 71 MG/DL (74-106) L Calcium Level 10.1 MG/DL (8.5-10.1) Magnesium Level 1.8 MG/DL (1.8-2.4) Total Bilirubin 0.9 MG/DL (0.2-1.0) Aspartate Amino Transf (AST/SGOT) 19 U/L (15-37) Alanine Aminotransferase (ALT/SGPT) 28 U/L (12-78) Alkaline Phosphatase 48 U/L (46-116) Total Protein 6.7 G/DL (6.4-8.2) Albumin 2.7 G/DL (3.4-5.0) L Globulin 4.0 g/dL Albumin/Globulin Ratio 0.7 (1.0-2.7) L Plan Problems: (1) Chronic obstructive pulmonary disease (2) Elevated troponin (3) UTI (lower urinary tract infection) (4) Acute exacerbation of CHF (congestive heart failure) (5) UTI (lower urinary tract infection) Assessment & Plan: uti leukocytosis (steroid ? 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 (13) Hemoptysis (14) Stroke (15) COPD exacerbation (16) Acute exacerbation of CHF (congestive heart failure) (17) Epistaxis (18) Sacral decubitus ulcer Assessment & Plan: This is a very pleasant 83 year old male who presented with full thickness sacral decubitus ulcer. Seems to have been a DTPI prior which has opened up. Patient states he knew something was forming in the area but unsure what. 4cm x 3cm area of partial thickness epidermal skin loss and small area of central full thickness with opening. mehrdad wound okay. serous drainage. some stool soilage. sacrum.25% slough at coccyx,75% pink granulation extending into R sacrum(L)4cm x (W)3cm. NO odor or exudate noted. An area that is purple and indurated noted inferior to base of wound(L)4cm x (W)2.5cm. Pt verbalized pain at site of wound and indurated area when minimally palpated. Both heels are dry and blanchable. Pt educated on wound prevention. encouraged to frequently turn side to side in bed to relieve pressure off buttocks. Instructed to avoid sliding against bed linens and to off-lift buttocks when repositioning.Pt denied bladder or bowel incontinence. Tx plan: discussed findings with patient. patient understands that this is a pressure injury. he is able to participate in exam and understands needs to off load pressure turn q2h air mattress ambulate as much as possible Cleanse wound with Saline. Apply Therahoney to area of slough. Apply Triad periwound .Cover with Optifoam drsg. Change every 3 days and prn. Encourage and assist as needed with repositioning at least every 2 hours or as tolerated. Off-load heels with pillow. will monitor while in hospital thank you Erlin Kearns Nov 08, 2018 13:52
--- NOTE | 2018-11-08 14:00 | NUR ---
RD ASSESSMENT & RECOMMENDATIONS SEE CARE ACTIVITY FOR COMPLETE ASSESSMENT DAILY ESTIMATED NEEDS: Needs based on Cardiac, wound 89kg adj 25-35 kcals/kg 4526-4934 total kcals 1.25-1.5 g protein/kg 111-134 g total protein Fluid per MD, on lasix mL/kg total fluid mLs NUTRITION DIAGNOSIS: Increased kcal and pro needs r/t wound healing as evidenced by pt being mostly wheelchair bound w/ full thickness sacral decubitus ulcer. CURRENT DIET:CARDIAC + Ensure Enlive QD PO DIET RECOMMENDATIONS: LOW NA DIET (texture per [employer]) + Snacks BID in b/w meals daily ADDITIONAL RECOMMENDATIONS: 1) Standing wt as able / CALIBRATED BED SCALE wt 2) Monitor BG and need for coverage on steroidal med 3) con't to encourage >75% po intake 4) Texture per [employer] 5) Add ENSURE ENLIVE BID in b/w meals 6) WOUND CARE: Add VIT C 500mg BID + MVI w/ min x1 daily + continue KELLEY BID
[2018-11-08] MEDS: HYDROcodone/Acetamin 10/325 tab ORAL PRN ×2 (15:01→20:46)
--- NOTE | 2018-11-08 16:27 | NUR ---
SS note Chart reviewed; patient is from home and showing weakness with nursing. This SW recommended P.T to see patient.
[2018-11-08] MEDS: Levofloxacin 500mg tab ORAL SCH (16:58)
--- NOTE | 2018-11-08 19:42 | NUR ---
HAND-OFF: Report given to Miguel Alvarado/JENNIFER.
--- NOTE | 2018-11-08 19:45 | NUR ---
NURSE NOTES: Received report from JENNIFER Leal. Patient is awake and alert x 4. Patient was on the bedside commode. Helped him back to his bed. No signs of respiratory distress. Left hand IV intact. Bed is in lowest position with 2 bed rails up. Call light is in reach. Will continue to monitor.
[2018-11-08] MEDS: Atorvastatin 20mg tab ORAL SCH (20:47)
--- NOTE | 2018-11-08 21:57 | NUR ---
NURSE NOTES: Performed dressing change for patient's sacral wound at 2152.
--- NOTE | 2018-11-08 23:45 | NUR ---
NURSE NOTES: Patient is requesting a sleep aid. Contacted Dr. Encarnacion around [phone] to ask if he would like to order something for the patient.
[2018-11-09] VITALS: BP 111/68
[2018-11-09 04:00] VITALS: BP 115/69
--- NOTE | 2018-11-09 05:15 | Progress Note ---
DATE: 11/08/2018 CARDIOLOGY PROGRESS NOTE SUBJECTIVE: The patient had a panendoscopy. No source of bleeding found. The patient is tolerating diet. He denies shortness of breath. OBJECTIVE: VITAL SIGNS: Blood pressure 132/80, pulse 60, and respirations 15. Afebrile. LUNGS: Few rhonchi. CARDIAC: Regular rhythm and rate. Normal S1, S2 with a fourth heart sound. ABDOMEN: Soft. No tenderness or edema. IMPRESSION: 1. Polymicrobial pneumonia. 2. Hemoccult-positive stools. 3. Iron deficiency anemia. 4. Permanent pacemaker. 5. Chronic obstructive pulmonary disease. 6. Hypertensive heart disease. PLAN: 1. Decrease prednisone to maintenance dose. 2. Resume diet. 3. Continue iron replacement. 4. Baseline cardiovascular regimen including amiodarone and metoprolol. 5. Discharge planning. Yvan Encarnacion M.D. DR: AIYANA JOB#: [id number] CC:
--- NOTE | 2018-11-09 07:11 | NUR ---
HAND-OFF: Report given to JENNIFER Ho.
--- NOTE | 2018-11-09 07:30 | NUR ---
NURSE NOTES: Received pt from JENNIFER MANNING. Pt is alert and orient x4. pt is in RA, No SOB or acute respiratory distress noted. pt has intact iv access LFA 22G SL. Pt is eating breakfast independently. all needs attended, bed is locked and is in the lowest position. call light within easy reach. will continue to monitor.
[2018-11-09 07:38] LABS: BASOPHILS % (AUTO) 0.3 % (0.0-2.0); HEMOGLOBIN 9.3 G/DL (14.2-18.0); LYMPHOCYTES % (AUTO) 12.5 % (20.0-45.0); MEAN CORPUSCULAR VOLUME 73 FL (80-99); MONOCYTES % (AUTO) 7.3 % (1.0-10.0); NEUTROPHILS % (AUTO) 78.9 % (45.0-75.0); PLATELET COUNT 226 K/UL (150-450); RED BLOOD COUNT 4.25 M/UL (4.70-6.10); WHITE BLOOD COUNT 10.2 K/UL (4.8-10.8)
[2018-11-09 08:00] VITALS: BP 110/61
[2018-11-09 08:10] LABS: ALANINE AMINOTRANSFERASE 22 U/L (12-78); ALBUMIN 2.6 G/DL (3.4-5.0); ALBUMIN/GLOBULIN RATIO 0.7 (1.0-2.7); ALKALINE PHOSPHATASE 42 U/L (46-116); ANION GAP 8 mmol/L (5-15); ASPARTATE AMINO TRANSFERASE 16 U/L (15-37); BILIRUBIN,TOTAL 0.7 MG/DL (0.2-1.0); BLOOD UREA NITROGEN 16 mg/dL (7-18); CALCIUM 9.6 MG/DL (8.5-10.1); CARBON DIOXIDE 29 MMOL/L (21-32); CHLORIDE 105 MMOL/L (98-107); CREATININE 1.3 MG/DL (0.55-1.30); POTASSIUM 3.2 MMOL/L (3.5-5.1); SODIUM 142 MMOL/L (136-145)
--- NOTE | 2018-11-09 08:21 | General Progress Note ---
Assessment/Plan Problem List: (1) PNA (pneumonia) ICD Codes: J18.9 - Pneumonia, unspecified organism SNOMED: 978657953 (2) Chronic obstructive pulmonary disease ICD Codes: J44.9 - Chronic obstructive pulmonary disease, unspecified SNOMED: 81961610 (3) Elevated troponin ICD Codes: R74.8 - Elevated troponin SNOMED: 560865426 (4) Acute exacerbation of CHF (congestive heart failure) ICD Codes: I50.9 - Heart failure, unspecified SNOMED: 88585422 (5) Dyspnea on exertion (6) COPD exacerbation ICD Codes: J44.1 - Chronic obstructive pulmonary disease with (acute) exacerbation SNOMED: 983202311 Status: stable, progressing Assessment/Plan: cont resp care o2 resp rx monitor for bleeding iv abx per id BP rx replace k monitor labs pt/ot Subjective ROS Limited/Unobtainable: No Constitutional: Reports: malaise, weakness HEENT: Reports: no symptoms Cardiovascular: Reports: no symptoms Respiratory: Reports: cough Gastrointestinal/Abdominal: Reports: no symptoms Genitourinary: Reports: no symptoms Neurologic/Psychiatric: Reports: no symptoms Endocrine: Reports: no symptoms Hematologic/Lymphatic: Reports: anemia Allergies: Coded Allergies: No Known Allergies (Verified , 01/23/09) All Systems: reviewed and negative except above Subjective no new complaints.endoscopy results noted. low k noted Objective Last 24 Hour Vital Signs Date Time Temp Pulse Resp B/P (MAP) Pulse Ox O2 Delivery O2 Flow Rate FiO2 11/09/18 04:00 98.3 61 18 115/69 (84) 97 11/09/18 00:00 98.4 61 18 111/68 (82) 97 11/08/18 21:00 Room Air 11/08/18 20:00 98.7 69 18 110/60 (77) 99 11/08/18 16:00 98.0 77 18 109/64 (79) 100 11/08/18 15:31 97.7 11/08/18 12:00 97.7 60 18 130/74 (92) 95 11/08/18 10:35 97.8 60 15 132/80 100 Room Air 11/08/18 10:29 60 15 144/77 100 Room Air 11/08/18 10:24 60 13 136/89 100 Room Air 11/08/18 10:23 62 16 100 11/08/18 10:19 97.3 61 15 144/81 100 Simple Mask 6 11/08/18 09:40 Room Air 21 11/08/18 09:40 Room Air 21 11/08/18 09:00 Room Air Intake and Output 11/08/18 11/09/18 19:00 07:00 Intake Total 440 ml Output Total 700 ml Balance 440 ml -700 ml Intake Oral 240 ml IV Total 200 ml Output Urine Total 700 ml # Voids 3 Laboratory Tests 11/09/18 05:32: White Blood Count 10.2, Red Blood Count 4.25L, Hemoglobin 9.3L, Hematocrit 31.0L , Mean Corpuscular Volume 73L, Mean Corpuscular Hemoglobin 22.0L, Mean Corpuscular Hemoglobin Concent 30.1L, Red Cell Distribution Width 25.0H, Platelet Count 226, Mean Platelet Volume 5.4L, Neutrophils (%) (Auto) 78.9H, Lymphocytes (%) (Auto) 12.5L, Monocytes (%) (Auto) 7.3, Eosinophils (%) (Auto) 1.0, Basophils (%) (Auto) 0.3, Sodium Level 142, Potassium Level 3.2L, Chloride Level 105, Carbon Dioxide Level 29, Anion Gap 8, Blood Urea Nitrogen 16, Creatinine 1.3, Estimat Glomerular Filtration Rate , Glucose Level 73L, Calcium Level 9.6, Total Bilirubin 0.7, Aspartate Amino Transf (AST/SGOT) 16, Alanine Aminotransferase (ALT/SGPT) 22, Alkaline Phosphatase 42L, Pro-B-Type Natriuretic Peptide 612H, Total Protein 6.1L, Albumin 2.6L, Globulin 3.5, Albumin/Globulin Ratio 0.7L Height (Feet): 6 Height (Inches): 2.00 Weight (Pounds): 216 Objective General Appearance: WD/WN, alert Cardiovascular: normal rate Respiratory/Chest: rhonchi - bilaterally Abdomen: normal bowel sounds, non tender, soft, no organomegaly Edema: no edema noted Arm (L), no edema noted Arm (R), no edema noted Leg (L), no edema noted Leg (R), no edema noted Pedal (L), no edema noted Pedal (R), no edema noted Generalized Sumit Hallman MD Nov 09, 2018 08:21
[2018-11-09] MEDS: Losartan 50mg tab ORAL SCH (08:50)
[2018-11-09] MEDS: Levofloxacin 500mg tab ORAL SCH (08:51)
[2018-11-09] MEDS: Nystatin Susp 500,000 units/5ml ORAL SCH ×2 (08:51→12:03)
[2018-11-09] MEDS: Metoprolol Succinate XL 25mg tab ORAL SCH (08:51)
[2018-11-09] MEDS: HYDROcodone/Acetamin 10/325 tab ORAL PRN (08:51)
[2018-11-09] MEDS: Amiodarone 200mg tab ORAL SCH (08:51)
[2018-11-09] MEDS: Breo Ellipta 100/25mcg - 14 dose INH SCH (09:44)
[2018-11-09 12:00] VITALS: BP 106/60
--- NOTE | 2018-11-09 12:08 | Endoscopy Procedure Note ---
Endoscopy Procedure Note General Indication for Procedure: anemia Procedures Performed: EGD, colonoscopy Operative Findings/Diagnosis: normal EGD, Colon polyp x 3, one cold snare Specimen: yes Pt Tolerated Procedure Well: Yes Estimated Blood Loss: none Anesthesia Anesthesiologist: see report Anesthesia: MAC Medications Medication Given: see anesthesia record Inserted Devices Implant(s) used?: No GI Core Measures 50 yrs or older w/o bx or poly: Not Applicable 10yrs. F/U recommended: Not Applicable If not recommended, why?: Jacob Deleon MD Nov 09, 2018 12:08
--- NOTE | 2018-11-09 12:09 | Brief Operative Note ---
Immediate Post Operative Note Operative Note Chief Complaint: anemia Pre-op Diagnosis: anemia Procedure: esophagogastroduodenoscopy, colon with bx and polypectomy, Post-op Diagnosis: normal EGD, cecum polyp x 1 - cold snare, x1 - biopsy, sigmoid polyp x1 - bx Surgeon: salud Anesthesiologist: see report Anesthesia: MAC Specimen: yes Complications: none Condition: stable Fluids: per anesthesia Estimated Blood Loss: none Drains: none Implant(s) used?: No Jacob Deleon MD Nov 09, 2018 12:09
--- NOTE | 2018-11-09 12:12 | General Progress Note ---
Assessment/Plan Status: stable, progressing Assessment/Plan: Assessment - Iron deficiency anemia - OB (+) stools - normal CEA - normal EGD, 3 small colon polyps - removed - Jehova's witness Recommendations - push PO - IV Iron - monitor CBC - OK for d/c from GI standpoint - outpatient GI f/u for capsule endoscopy Subjective Allergies: Coded Allergies: No Known Allergies (Verified , 01/23/09) Subjective Feels OK feels well d/w patient re EGD (normal) and colonoscopy (3 small polyps) results advised to see me as outpatient for possible capsule endoscopy Objective Last 24 Hour Vital Signs Date Time Temp Pulse Resp B/P (MAP) Pulse Ox O2 Delivery O2 Flow Rate FiO2 11/09/18 09:45 69 18 98 Room Air 21 11/09/18 09:45 69 18 98 Room Air 21 11/09/18 09:21 97.9 11/09/18 09:00 Room Air 11/09/18 08:52 61 110/61 11/09/18 08:51 61 110/61 11/09/18 08:50 110/61 11/09/18 08:00 97.9 61 20 110/61 (77) 95 11/09/18 04:00 98.3 61 18 115/69 (84) 97 11/09/18 00:00 98.4 61 18 111/68 (82) 97 11/08/18 21:00 Room Air 11/08/18 20:00 98.7 69 18 110/60 (77) 99 11/08/18 16:00 98.0 77 18 109/64 (79) 100 Intake and Output 11/08/18 11/09/18 18:59 06:59 Intake Total 440 ml Output Total 700 ml Balance 440 ml -700 ml Intake Oral 240 ml IV Total 200 ml Output Urine Total 700 ml # Voids 3 Laboratory Tests 11/09/18 05:32: White Blood Count 10.2, Red Blood Count 4.25L, Hemoglobin 9.3L, Hematocrit 31.0L , Mean Corpuscular Volume 73L, Mean Corpuscular Hemoglobin 22.0L, Mean Corpuscular Hemoglobin Concent 30.1L, Red Cell Distribution Width 25.0H, Platelet Count 226, Mean Platelet Volume 5.4L, Neutrophils (%) (Auto) 78.9H, Lymphocytes (%) (Auto) 12.5L, Monocytes (%) (Auto) 7.3, Eosinophils (%) (Auto) 1.0, Basophils (%) (Auto) 0.3, Sodium Level 142, Potassium Level 3.2L, Chloride Level 105, Carbon Dioxide Level 29, Anion Gap 8, Blood Urea Nitrogen 16, Creatinine 1.3, Estimat Glomerular Filtration Rate , Glucose Level 73L, Calcium Level 9.6, Total Bilirubin 0.7, Aspartate Amino Transf (AST/SGOT) 16, Alanine Aminotransferase (ALT/SGPT) 22, Alkaline Phosphatase 42L, Pro-B-Type Natriuretic Peptide 612H, Total Protein 6.1L, Albumin 2.6L, Globulin 3.5, Albumin/Globulin Ratio 0.7L Height (Feet): 6 Height (Inches): 2.00 Weight (Pounds): 216 Objective WDWN NCAT supple CTA RRR abd soft ND No edema non focal Jacob Deleon MD Nov 09, 2018 12:12
[2018-11-09] MEDS ORDERED: LEVOFLOXACIN500 MG ORAL (12:15)
--- NOTE | 2018-11-09 13:13 | NUR ---
P.T Note: P.T evaluation completed and treatment initiated. Please refer to P.T evaluation for current functional status and POC. Pt is alert, x 4, pleasant and cooperative. Pt denied c/o pain but reports feeling of generalized weakness and easily gets fatigued affecting overall mobility independence and safety. Pt currently require SBA x 1 for bed mobilities, MIN A X 1 for transfers and gait/ambulation activities using the FWW. Pt will benefit from skilled P.T services to increase his strength , balance and activity tolerance to increase his mobility independence and safety. Recommend either SNF for short rehab or home P.T with family assist DC. Thank you for this referral.
--- NOTE | 2018-11-09 13:59 | NUR ---
NURSE NOTES:WOUND CARE FOLLOW-UP NOTES:Full thickness sacral wound with 60% slough with surrounding pink granulation.Small amt seropurulent exudate noted. No odor noted .Periwound without erythema or induration.(L)4cm x (W)6.2cm.Pt re-educated on wound prevention. Encouraged to turn frequently while in bed.Pt sitting up in chair at bedside and reminded to shift and off-lift at least every 15-30 mins to relieve pressure. Pt verbalized understanding on importance to relieving pressure for wound to heal. No new skin concerns noted.
--- NOTE | 2018-11-09 14:35 | NUR ---
NURSE NOTES: Dr troncoso visited pt [phone] and ordered to discharge pt home with home meds and continue levofloxacin for 3 more days, noted and carried out. is aware about sacral wound and asked RN to fax wound order treatment to HH [phone]. didn't tell RN HH name. RN faxed order and given a copy to pt to give it to HH. All discharge assessments and instructions done and pt verbally confirmed to understand all. pt is notified about ATB for 3 days. wound picture done and uploaded. all belongings are with pt and checked with RN and belonging's paper signed with pt. pt is ready to D/C. waiting for to last picker pt. will continue to monitor.
--- NOTE | 2018-11-09 14:57 | Surgery Progress Note ---
Surgery Progress Note Subjective Symptoms: improved, tolerating diet, BM, pain decreased Objective Last 24 Hour Vital Signs Date Time Temp Pulse Resp B/P (MAP) Pulse Ox O2 Delivery O2 Flow Rate FiO2 11/09/18 12:00 97.0 70 18 106/60 (75) 96 11/09/18 09:45 69 18 98 Room Air 21 11/09/18 09:45 69 18 98 Room Air 21 11/09/18 09:21 97.9 11/09/18 09:00 Room Air 11/09/18 08:52 61 110/61 11/09/18 08:51 61 110/61 11/09/18 08:50 110/61 11/09/18 08:00 97.9 61 20 110/61 (77) 95 11/09/18 04:00 98.3 61 18 115/69 (84) 97 11/09/18 00:00 98.4 61 18 111/68 (82) 97 11/08/18 21:00 Room Air 11/08/18 20:00 98.7 69 18 110/60 (77) 99 11/08/18 16:00 98.0 77 18 109/64 (79) 100 I&O Intake and Output 11/08/18 11/09/18 19:00 07:00 Intake Total 440 ml Output Total 700 ml Balance 440 ml -700 ml Intake Oral 240 ml IV Total 200 ml Output Urine Total 700 ml # Voids 3 Dressing: dry Wound: clean Cardiovascular: RSR Respiratory: clear Abdomen: soft, present bowel sounds, non-distended Extremities: no tenderness, no cyanosis Laboratory Tests Test 11/09/18 05:32 White Blood Count 10.2 K/UL (4.8-10.8) Red Blood Count 4.25 M/UL (4.70-6.10) L Hemoglobin 9.3 G/DL (14.2-18.0) L Hematocrit 31.0 % (42.0-52.0) L Mean Corpuscular Volume 73 FL (80-99) L Mean Corpuscular Hemoglobin 22.0 PG (27.0-31.0) L Mean Corpuscular Hemoglobin Concent 30.1 G/DL (32.0-36.0) L Red Cell Distribution Width 25.0 % (11.6-14.8) H Platelet Count 226 K/UL (150-450) Mean Platelet Volume 5.4 FL (6.5-10.1) L Neutrophils (%) (Auto) 78.9 % (45.0-75.0) H Lymphocytes (%) (Auto) 12.5 % (20.0-45.0) L Monocytes (%) (Auto) 7.3 % (1.0-10.0) Eosinophils (%) (Auto) 1.0 % (0.0-3.0) Basophils (%) (Auto) 0.3 % (0.0-2.0) Sodium Level 142 MMOL/L (136-145) Potassium Level 3.2 MMOL/L (3.5-5.1) L Chloride Level 105 MMOL/L (98-107) Carbon Dioxide Level 29 MMOL/L (21-32) Anion Gap 8 mmol/L (5-15) Blood Urea Nitrogen 16 mg/dL (7-18) Creatinine 1.3 MG/DL (0.55-1.30) Estimat Glomerular Filtration Rate mL/min (>60) Glucose Level 73 MG/DL (74-106) L Calcium Level 9.6 MG/DL (8.5-10.1) Total Bilirubin 0.7 MG/DL (0.2-1.0) Aspartate Amino Transf (AST/SGOT) 16 U/L (15-37) Alanine Aminotransferase (ALT/SGPT) 22 U/L (12-78) Alkaline Phosphatase 42 U/L (46-116) L Pro-B-Type Natriuretic Peptide 612 pg/mL (0-125) H Total Protein 6.1 G/DL (6.4-8.2) L Albumin 2.6 G/DL (3.4-5.0) L Globulin 3.5 g/dL Albumin/Globulin Ratio 0.7 (1.0-2.7) L Plan Problems: (1) Chronic obstructive pulmonary disease (2) Elevated troponin (3) UTI (lower urinary tract infection) (4) Acute exacerbation of CHF (congestive heart failure) (5) UTI (lower urinary tract infection) Assessment & Plan: uti leukocytosis (steroid ? abx GI eval for all positive blood in stool We will follow with recommendations thank you for this consultation (6) Atrial fibrillation (7) CHF (congestive heart failure) (8) Orthopnea (9) Dyspnea on exertion (10) Swelling of lower extremity Assessment & Plan: improved (11) Generalized ischemic cerebrovascular disease (12) acute onset left [place] pulsy. (13) Hemoptysis (14) Stroke (15) COPD exacerbation (16) Acute exacerbation of CHF (congestive heart failure) (17) Epistaxis (18) Sacral decubitus ulcer Assessment & Plan: This is a very pleasant 83 year old male who presented with full thickness sacral decubitus ulcer. Seems to have been a DTPI prior which has opened up. Patient states he knew something was forming in the area but unsure what. 4cm x 3cm area of partial thickness epidermal skin loss and small area of central full thickness with opening. mehrdad wound okay. serous drainage. some stool soilage. sacrum.25% slough at coccyx,75% pink granulation extending into R sacrum(L)4cm x (W)3cm. NO odor or exudate noted. An area that is purple and indurated noted inferior to base of wound(L)4cm x (W)2.5cm. Pt verbalized pain at site of wound and indurated area when minimally palpated. Both heels are dry and blanchable. Pt educated on wound prevention. encouraged to frequently turn side to side in bed to relieve pressure off buttocks. Instructed to avoid sliding against bed linens and to off-lift buttocks when repositioning.Pt denied bladder or bowel incontinence. Tx plan: discussed findings with patient. patient understands that this is a pressure injury. he is able to participate in exam and understands needs to off load pressure turn q2h air mattress ambulate as much as possible Cleanse wound with Saline. Apply santyl to area of slough. Apply Triad periwound .Cover with Optifoam drsg. Change every 3 days and prn. Encourage and assist as needed with repositioning at least every 2 hours or as tolerated. Off-load heels with pillow. will monitor while in hospital thank you Erlin Kearns Nov 09, 2018 14:57
[2018-11-09 16:00] VITALS: BP 119/65
--- NOTE | 2018-11-09 16:00 | NUR ---
NURSE NOTES: pt is stable. V/S stable. pt's knows about all instructions too and RN told her to give wound care order to HH. iv access D/C. pt left hospital with accompany of .
--- NOTE | 2018-11-09 16:15 | Operative Note - Dictated ---
DATE OF OPERATION: 11/08/2018 GASTROENTEROLOGY PROCEDURE REPORT PRE-ENDOSCOPIC DIAGNOSIS: Anemia. POST-ENDOSCOPIC DIAGNOSES: 1. Normal upper endoscopy. 2. Two polyps in the cecum and one in the sigmoid colon, which were all removed as described below. 3. No pathology identified to explain the patient's anemia. PROCEDURE IN DETAIL: The procedure, its risks, indications, alternatives, and possible complications were explained and informed consent was obtained. The diagnostic upper endoscope was introduced through the oropharynx and advanced to the duodenum. It was gradually withdrawn and the mucosa examined carefully. The upper gastrointestinal tract was normal. Specifically, there is no evidence of ulcerations or arteriovenous malformations. Rectal exam was then done and the colonoscope was used in the rectum and advanced to the cecum. The cecum was identified by the appearance of the ileocecal valve and the appendiceal orifice. There were two diminutive polyps in the cecum, one was 4 to 5 mm that was removed with a cold snare polypectomy. The other was close to appendiceal orifice that was removed with biopsy forceps. In the sigmoid colon, there was a diminutive polyp, which was removed with biopsy forceps. The rest of the colon was unremarkable and specifically there was no evidence of masses, tumors, or malformations. The colonoscope was removed and the patient was sent to Recovery in good condition. COMPLICATIONS: None. ASSESSMENT: The above examination did not show the site of bleeding, but there were no malignancies or significant pathology identified. The patient should undergo a capsule endoscopy examination, which can be done as an outpatient. RECOMMENDATIONS: 1. Resume oral diet. 2. Complete intravenous iron. 3. Monitor CBC. 4. Outpatient capsule endoscopy. Thank you for asking me to participate in the care of this patient. Jacob Deleon M.D. DR: DAFNE JOB#: [id number] CC:
[2018-11-09] MEDS ORDERED: Iron Sucrose 100 MG in NS 55 ML IV SCH (21:00)
--- NOTE | 2018-11-10 13:10 | Discharge Summary ---
Discharge Summary Discharge Summary _ DATE OF ADMISSION: 10/31/2018 DATE OF DISCHARGE: 11/09/2018 DISCHARGED BY: Dr. Yvan Encarnacion CONSULTANTS: Dr. Sumit Kearns BRIEF HOSPITAL COURSE: Patient is an 83-year-old -Luxembourger male, with advanced cardiopulmonary disease. He had increased cough and congestion over the past week. He was treated with inhaled bronchodilators and oral steroids, but failed to improve. He noted increase in leg swelling. He noted symptoms started following a head trauma episode about a week ago. He hit his head hard when getting out of the car, although he did not pass out or lose consciousness. He continued to have severe significant headache daily. He has medical history significant for COPD , history of thoracic aortic aneurysm repair, permanent pacemaker, coronary atherosclerosis, hypertensive heart disease, diastolic congestive heart failure , paroxysmal atrial fibrillation, reticulosis, hyperlipidemia, degenerative disc disease with lumbosacral radiculopathy, peripheral neuropathy, and prior cataract surgery. He was admitted for pneumonia and COPD exacerbation. He was given inhaled bronchodilators. He was started on intravenous steroids and was given him. Antibiotics. Chest x-ray showed right mid and lower lung interstitial and airspace disease. 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 On admission, he was noted to have a forming sacral decubitus ulcer. Surgery was consulted. Patient presented with full-thickness sacral decubitus ulcer which seemed to have been a deep tissue pressure injury which has opened up. There was area of partial thickness and epidermal skin loss and small area of central full-thickness with opening. Wound had serous drainage. He was given wound care. He was educated on wound care. He was placed on air mattress. He was advised to change position/turn frequently and to ambulate as much as possible. He was noted to have anemia. Hemoglobin 7.6 and hematocrit 25.7 blood transfusion was ordered, however, patient is a Confucianist and would not consent with transfusion. Anemia work-up was done, he was started on IV iron. Sputum culture showed growth of Citrobacter/ Stenotrophomonas and urine culture with aerococcus. ID was consulted. He was given Levaquin. Stool OB positive. GI was consulted. On 11/08/2018, he underwent EGD with colonoscopy. Patient had normal upper endoscopy. There were 2 polyps in the cecum and one in the sigmoid colon which were all removed. The rest of the colon was unremarkable. There was no pathology identified to explain patient's anemia. There was no source of bleeding found. He was recommended outpatient capsule endoscopy. Diet was resumed. Prednisone was decreased to maintenance dose. He was continued on iron replacement and cardiovascular regimen including amiodarone and metoprolol. He was eventually discharged home. FINAL DIAGNOSES: Polymicrobial pneumonia UTI Iron deficiency anemia COPD exacerbation Hypertensive heart disease Permanent pacemaker Full-thickness sacral decubitus ulcer, present on admission Moderate protein calorie malnutrition Status post EGD and colonoscopy Colonic polyp status post removal DISPOSITION: Patient was discharged home with home health. DISCHARGE MEDICATIONS: Refer to Discharge Medication List. DISCHARGE INSTRUCTIONS: Follow-up in a week. I have been assigned to complete a discharge summary on this account, I was not involved with the patient's management.--MERON Pearson Jacqueline Robles NP Nov 10, 2018 13:10
== END 2018-11-09 15:55 | disposition home or self-care (01) | DRG 177 ==
LOC: 4E 17:53
PROC: 0DJ08ZZ Inspection of Upper Intestinal Tract, Via Natural or Artificial Opening Endoscopic (ICD-10-PCS; principal; 2018-11-08 09:06)
PROC: 0DBN8ZZ Excision of Sigmoid Colon, Via Natural or Artificial Opening Endoscopic (ICD-10-PCS; principal; 2018-11-08 09:06)
PROC: 0DBH8ZZ Excision of Cecum, Via Natural or Artificial Opening Endoscopic (ICD-10-PCS; principal; 2018-11-08 09:06)
DX: J15.6 Pneumonia due to other Gram-negative bacteria (principal); I50.33 Acute on chronic diastolic (congestive) heart failure; J44.1 Chronic obstructive pulmonary disease with (acute) exacerbation; N39.0 Urinary tract infection, site not specified; E44.0 Moderate protein-calorie malnutrition; I67.82 Cerebral ischemia; R04.2 Hemoptysis; B96.89 Other specified bacterial agents as the cause of diseases classified elsewhere; Z95.0 Presence of cardiac pacemaker; K57.90 Diverticulosis of intestine, part unspecified, without perforation or abscess without bleeding; Z87.891 Personal history of nicotine dependence; I48.0 Paroxysmal atrial fibrillation; L89.159 Pressure ulcer of sacral region, unspecified stage; E78.5 Hyperlipidemia, unspecified; D50.9 Iron deficiency anemia, unspecified; K63.5 Polyp of colon; G51.0 Bell's palsy; Z86.73 Personal history of transient ischemic attack (TIA), and cerebral infarction without residual deficits; I11.0 Hypertensive heart disease with heart failure; R04.0 Epistaxis; R51 Headache
CPT/HCPCS: 36415; 70450; 71045; 71046; 80048; 80053; 81003; 82270; 82378; 83540; 83550; 83735; 83880; 85007; 85025; 86850; 86900; 86901; 86920; 87070; 87086; 87181; 87205; 94003; 94150; 94640; 94664; J7620; J8499

== ENCOUNTER 2020-06-25 16:12 | Inpatient (IN) | payer MEDICARE, OTHER ==
[~2020-06-25] VITALS: Ht 185.4 cm; Wt 81.6 kg
[~2020-06-25 16:12] MED LIST changes: +AMIODARONE HCL200 MG ORAL; +ASPIR 8181 MG ORAL; +BREO ELLIPTA 11 EACH IH; +LEVOFLOXACIN500 MG ORAL; +PREDNISONE10 MG ORAL; +PROSCAR5 MG ORAL
[2020-06-25 19:40] VITALS: BP 94/48
--- NOTE | 2020-06-25 19:45 | NUR ---
NURSE NOTES: Pt received as direct admit from Dr. Encarnacion's office via wheelchair, ambulated from wheelchair to bed with max assist. Pt alert and oriented x3, with no acute s/s of distress noted, on room air. No IV site noted, pt with list of his home medications with him. Upon interview, pt stated that he "is a Religious and does not consent to any blood transfusions." Pt states that he last had a BM today (06/25) but stated that he did not assess the stool's color or characteristics. Pt denies pain, dizziness or falls within the last few days. 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 Belongings with patient upon admission. Bed in lowest position, call light and belongings within reach.
[2020-06-25] MEDS ORDERED: FLOMAX0.4 MG ORAL (20:25)
[2020-06-25] MEDS ORDERED: FAMOTIDINE20 MG ORAL (20:25)
[2020-06-25] MEDS ORDERED: FUROSEMIDE40 MG ORAL (20:25)
[2020-06-25] MEDS ORDERED: POTASSIUM CHLO20 ME1 ORAL (20:25)
[2020-06-25] MEDS ORDERED: ASPIRIN EC81 MG ORAL (20:25)
[2020-06-25] MEDS ORDERED: FERROUS SULFAT325 MG ORAL (20:25)
[2020-06-25] MEDS ORDERED: ATORVASTATIN CA40 MG ORAL (20:25)
[2020-06-25] MEDS ORDERED: LOSARTAN POTASS50 MG ORAL (20:25)
[2020-06-25] MEDS ORDERED: OXYBUTYNIN CHLOR5 M2 PO (20:25)
--- NOTE | 2020-06-25 20:30 | NUR ---
NURSE NOTES: Received admission orders from Dr. Hallman, will carry out orders accordingly.
[2020-06-25 21:39] LABS: HEMATOCRIT 20.1 % (42.0-52.0); MEAN CORPUSCULAR VOLUME 83 FL (80-99); PLATELET COUNT 125 K/UL (150-450); RED BLOOD COUNT 2.42 M/UL (4.70-6.10); RED CELL DISTRIBUTION WIDTH 22.2 % (11.6-14.8); WHITE BLOOD COUNT 7.3 K/UL (4.8-10.8)
[2020-06-25 21:48] LABS: HEMOGLOBIN 5.8 G/DL (14.2-18.0)
[2020-06-25 22:05] LABS: % IRON SATURATION 4 % (15-50); IRON 17 ug/dL (50-175); TOTAL IRON BINDING CAPACITY 386 ug/dL (250-450)
--- NOTE | 2020-06-25 22:10 | NUR ---
NURSE NOTES: Received Critical Lab result from [facility] - Hgb 5.8, Hct 20.1 at approximately 2140. RN spoke with patient at bedside and communicated critical lab result including the benefits of receiving blood in his case as well as the risks of not accepting the blood. Pt verbalized understanding but reiterated that he "is a Mormon. I do not want to accept someone else's blood. If I were to take it, I would be taking their life. I do not want to take someone else's life." RN endorsed to Dr. Hallman, no new orders given.
[2020-06-25 22:11] LABS: ALANINE AMINOTRANSFERASE 11 U/L (12-78); ALBUMIN 2.9 G/DL (3.4-5.0); ALBUMIN/GLOBULIN RATIO 0.7 (1.0-2.7); ALKALINE PHOSPHATASE 78 U/L (46-116); ANION GAP 10 mmol/L (5-15); ASPARTATE AMINO TRANSFERASE 20 U/L (15-37); BILIRUBIN,TOTAL 1.9 MG/DL (0.2-1.0); BLOOD UREA NITROGEN 62 mg/dL (7-18); CALCIUM 9.8 MG/DL (8.5-10.1); CARBON DIOXIDE 25 MMOL/L (21-32); CHLORIDE 110 MMOL/L (98-107); CREATININE 2.7 MG/DL (0.55-1.30); POTASSIUM 4.1 MMOL/L (3.5-5.1); SODIUM 145 MMOL/L (136-145)
[2020-06-25 22:20] LABS: BILIRUBIN,DIRECT 1.2 MG/DL (0.0-0.3)
[2020-06-25] MEDS: Dyna-Hex 2% Top Sol 2oz TOPIC SCH (22:46)
[2020-06-25] MEDS: Atorvastatin 20mg tab ORAL SCH (22:51)
[2020-06-25] MEDS ORDERED: Epoetin Alfa-EPBX (NON ESRD)10,000 unit/ml vial SUBQ SCH (23:00)
[2020-06-26] VITALS: BP 94/52
--- NOTE | 2020-06-26 03:42 | NUR ---
NURSE NOTES: Pt is incontinent of urine, unable to collect urine collection through urinal provided. Bed bath given and wound care protocol done. Condom catheter placed on patient for urine collection. No stool noted.
[2020-06-26 04:00] VITALS: BP 111/55
--- NOTE | 2020-06-26 04:12 | NUR ---
NURSE NOTES: Pt complained of left lower abdominal sharp pain, requesting for pain medication for relief. RN endorsed to Dr Hallman who ordered for Tylenol 650 mg PO q4h PRN for pain. Will carry out orders accordingly.
--- NOTE | 2020-06-26 07:19 | NUR ---
NURSE HAND-OFF REPORT: Important Events on Shift: Pt incontinent, unable to obtain urine culture, placed condom catheter on to obtain urine collection. Hgb noted at 5.8 but pt refused blood transfusion. VS WNL, afebrile. A-fib (60s) overnight. Patient Status: Ongoing Diet: Cardiac Pending Orders: CT head, David Duplex B lower extremities Pending Results/Labs: n/a Pending MD notification: n/a Latest Vital Signs: Temperature 97.5 , Pulse 60 , B/P 111 /55 , Respiratory Rate 14 , O2 SAT 98 , , O2 Flow Rate . Vital Sign Comment: wNL EKG Rhythm: Atrial Fibrillation Rhythm change?: N MD Notified?: - MD Response: Latest Munroe Fall Score: 55 Fall Risk: High Risk Safety Measures: Call light Within Reach, Bed Alarm Zone 2, Side Rails Side Rails x2, Bed position Low and Locked. Fall Precautions: Yellow Socks Yellow Gown Door Sign Patient Fall Education Report given to JENNIFER Russell.
--- NOTE | 2020-06-26 07:31 | NUR ---
NURSE NOTES: Patient received from Justen RN. Patient comfortable in bed, alert and oriented x3. No c/o pain and no s/s of respiratory distress. On room air, saturation wNL. IV site patent and intact on Right AC 20G and Left FA 22G running NS @ 70cc/hr. Noted to have low Hgb but patient refusing blood transfusion, MD aware per morning nurse. Bed in lowest position and locked. Call light and bedside table within reach.
[2020-06-26 08:00] VITALS: BP 110/52
--- NOTE | 2020-06-26 08:20 | NUR ---
NURSE NOTES: Dr. Hallman came to see patient, notified of critical low Hgb, MD spoke to patient about risks and benefits of blood transfusion but patient refused transfusion. Patient is a Anglican.
[2020-06-26] MEDS: Amiodarone 200mg tab ORAL SCH (08:31)
[2020-06-26] MEDS: Tamsulosin 0.4mg cap ORAL SCH (08:31)
--- NOTE | 2020-06-26 08:37 | NUR ---
NURSE NOTES: Patient taken downstairs on [place] bed for Head CT
--- NOTE | 2020-06-26 09:00 | NUR ---
NURSE NOTES: Patient back from Head CT. Ekg done for admission ,result on chart
--- NOTE | 2020-06-26 09:38 | NUR ---
NURSE NOTES: Dr. Deleon at bedside
--- NOTE | 2020-06-26 11:25 | NUR ---
CASE MANAGEMENT:REVIEW 84 YR OLD MALE SENT FROM MD'S OFFICE SI: ANEMIA IN SETTING OF EPISCOPALIAN 98.8 60 19 94/48 97% ON RA H/H-5.8/20.1 PLT-125 BUN+62 CR+2.7 IS: IV VENOFER QHS IVF@70/HR EPOETIN SQ MWF PROTONIX PO QD AMIODARONE PO QD PROSCAR PO QD FLOMAX PO QD : DIRECTLY ADMITTED TO TELEMETRY
[2020-06-26] MEDS: Iron Sucrose 100 MG in NS 55 ML IVPB SCH (11:28)
[2020-06-26 12:00] VITALS: BP 118/51
--- NOTE | 2020-06-26 12:29 | General Progress Note ---
Subjective Allergies: Coded Allergies: No Known Allergies (Verified , 01/23/09) Objective Last 24 Hour Vital Signs Date Time Temp Pulse Resp B/P (MAP) Pulse Ox O2 Delivery O2 Flow Rate FiO2 06/26/20 09:00 Room Air 06/26/20 08:00 97.7 60 18 110/52 (71) 97 06/26/20 08:00 60 06/26/20 04:00 97.5 53 14 111/55 (73) 98 06/26/20 04:00 60 06/26/20 00:00 97.5 60 16 94/52 (66) 96 06/26/20 00:00 60 06/25/20 21:00 Room Air 06/25/20 20:05 Room Air 06/25/20 20:00 60 06/25/20 19:40 98.8 60 19 94/48 (63) 97 Intake and Output 06/25/20 06/26/20 19:00 07:00 Intake Total 1260 ml Balance 1260 ml Intake Oral 700 ml IV Total 560 ml # Voids 3 Laboratory Tests 06/25/20 21:35: White Blood Count 7.3, Red Blood Count 2.42L, Hemoglobin 5.8*L, Hematocrit 20.1L , Mean Corpuscular Volume 83, Mean Corpuscular Hemoglobin 23.8L, Mean Corpu scular Hemoglobin Concent 28.6L, Red Cell Distribution Width 22.2H, Platelet Count 125L, Mean Platelet Volume 6.4L, Neutrophils (%) (Auto) , Lymphocytes (%) (Auto) , Monocytes (%) (Auto) , Eosinophils (%) (Auto) , Basophils (%) (Auto) , Differential Total Cells Counted 100, Neutrophils % (Manual) 65, Lymphocytes % (Manual) 22, Monocytes % (Manual) 5, Eosinophils % (Manual) 3, Basophils % (Manual) 0, Metamyelocytes % 2H, Myelocytes % 2H, Band Neutrophils 1, Platelet Estimate DecreasedL, Platelet Morphology Normal, Polychromasia 2+, Hypochromasia 3+, Poikilocytosis 2+, Anisocytosis 3+, Schistocytes 2+, Reticulocyte Count 1.4, Sodium Level 145, Potassium Level 4.1, Chloride Level 110H, Carbon Dioxide Level 25, Anion Gap 10, Blood Urea Nitrogen 62H, Creatinine 2.7H, Estimat Glomerular Filtration Rate 27.4, Glucose Level 107H, Calcium Level 9.8, Iron Level 17L, Total Iron Binding Capacity 386, Percent Iron Saturation 4L, Unsaturated Iron Binding 369H, Total Bilirubin 1.9H, Direct Bilirubin 1.2H, Aspartate Amino Transf (AST/SGOT) 20, Alanine Aminotransferase (ALT/SGPT) 11L, Alkaline Phosphatase 78, Total Protein 7.3, Albumin 2.9L, Globulin 4.4, Albumin/Globulin Ratio 0.7L Height (Feet): 6 Height (Inches): 2.00 Weight (Pounds): 204 Assessment/Plan Assessment/Plan: Assessment - Iron deficiency anemia - Jehovas, declines transfusion - lower abdominal TTP, ? etiology - b/l edema - anemia - azotemia - CHF - COPD - CHF Recommendations - Agree with EPO - give qd for a few days, to help boost hematopoiesis - IV Iron - check CT abd/pelvis - PPI - EGD/Colon next week, hopefully with higher H&H Thank you MD Adrienne Ward Payman MD Jun 26, 2020 12:29
[2020-06-26] MEDS ORDERED: Sorbitol Solution UD 30ml ORAL SCH (12:30)
--- NOTE | 2020-06-26 15:10 | Diagnostic Imaging Report ---
Indication: Bilateral leg pain Technique: Grayscale and duplex images of the bilateral lower extremity veins Comparison: 06/26/2020 Findings: Bilaterally, grayscale and duplex images demonstrate no evidence of intraluminal thrombus. Normal phasic Doppler waveforms, demonstrating normal augmentation response and no evidence of valvular insufficiency. Greater saphenous vein(s) and tibial veins are patent. Normal compressibility. Impression: Negative for evidence of lower extremity deep venous thrombosis bilaterally
--- NOTE | 2020-06-26 15:25 | Diagnostic Imaging Report ---
Indications: Altered mental status Technique: Spiral acquisitions obtained through the brain. Angled axial and coronal 5 x 5 mm slices were reconstructed. Total dose length product 1045 mGycm. CTDI vol(s) 53 mGy. Dose reduction achieved using automated exposure control Comparison: 11/01/2018 Findings: Old right parietal deep white matter infarct again demonstrated. Old right cerebellar deep white matter infarct again demonstrated. There is generalized periventricular deep white matter low-attenuation, consistent with chronic microvascular ischemic change. There is age-related enlargement of the ventricles and extra-axial CSF spaces. Visualized orbits and sinuses are unremarkable. The mastoids are clear. The calvarium is intact. Findings are unchanged Impression: Chronic and age related changes, including old infarcts, as described Negative for acute intracranial bleed or mass effect The CT scanner at [facility] is accredited by the [employer] and the scans are performed using protocols designed to limit radiation exposure to as low as reasonably achievable to attain images of sufficient resolution adequate for diagnostic evaluation.
[2020-06-26 16:00] VITALS: BP 113/50
--- NOTE | 2020-06-26 16:24 | Diagnostic Imaging Report ---
Indication: Abdominal pain Technique: Spiral acquisitions obtained through the abdomen and pelvis. Patient given oral contrast. No IV contrast utilized, region estimated.. Multiplanar reconstructions were generated. Total dose length product 456 mGycm. CTDIvol(s) 8 mGy. Dose reduction achieved using automated exposure control Comparison: none Findings: There is extensive and diffuse edema of the subcutaneous fat. There is also edema of the retroperitoneal and mesenteric fat. The included lung bases demonstrate mosaic attenuation pattern and interstitial septal thickening, as well as a few small bullous changes. There is a trace right pleural effusion. The heart is markedly enlarged, contains a pacemaker. There is distention of the inferior vena cava and hepatic veins There is fairly extensive colonic diverticulosis. No definite evidence of diverticulitis, although this is difficult to exclude given the presence of stranding soft tissue edema which could obscure inflammatory changes. The appendix is barely identifiable, probably normal. No small bowel distention or small bowel wall thickening. Ingested contrast has traversed the entirety of the small bowel and is also seen distally in the rectum. There is some contrast within the distal esophagus, could indicate dysmotility or reflux. The stomach is unremarkable. The duodenum is unremarkable. No free intraperitoneal gas. There is some free fluid within the pelvis and in the right paracolic gutter. There is also trace fluid over the dome of the liver. The gallbladder is distended. No definite gallstones. There is questionably some pericholecystic edema. Lack of IV contrast limits assessment of the solid organs. The liver is grossly unremarkable except for a few uptake calcifications. No biliary ductal dilatation. The pancreas, spleen, adrenals are unremarkable. The left kidney demonstrates subcentimeter low attenuation lesions which are too small to characterize. Right kidney demonstrates multiple cysts, including a large upper pole cyst that measures 10 cm long axis dimension. Prominent but not frankly enlarged retroperitoneal nodes are demonstrated. The bladder demonstrates mild wall thickening. The prostate is unremarkable. The bones demonstrate fairly extensive degenerative spondylosis changes. Impression: Marked cardiomegaly Anasarca, probably on the basis of congestive heart failure given the above, with ascites, diffuse edema of the subcutaneous and mesenteric fat, probable pulmonary edema, trace right pleural fluid Colonic diverticulosis. No evidence of diverticulitis Distended gallbladder. No definite gallstones. Pericholecystic edema is probably a manifestation of anasarca Multiple right renal cysts. Subcentimeter low-attenuation left renal lesions also likely represent benign simple cysts and no further follow-up is necessary for these Bladder wall thickening, may indicate chronic outlet obstruction or cystitis Degenerative spondylosis Pulmonary mosaic attenuation and interstitial septal thickening probably represents pulmonary edema. There is also evidence of bullous COPD Pacemaker The CT scanner at [facility] is accredited by the [employer] and the scans are performed using protocols designed to limit radiation exposure to as low as reasonably achievable to attain images of sufficient resolution adequate for diagnostic evaluation.
[2020-06-26] MEDS: Gentamicin 0.3% Opth Soln 5ml BOTH EYES SCH ×2 (17:08→20:22)
[2020-06-26] MEDS: Epoetin Alfa-EPBX (NON ESRD)10,000 unit/ml vial SUBQ SCH (17:08)
--- NOTE | 2020-06-26 18:41 | NUR ---
NURSE HAND-OFF REPORT: Important Events on Shift:[Refused blood transfusion, Dr. Hallman aware. Patient signed form for refusal of blood transfusion. CT abd pelvis done Dr Deleon notified for results, CT head done] Patient Status: [A&O x3, FC, ] Diet: [Cardiac Diet] Pending Orders: [] Pending Results/Labs:[] Pending MD notification:[] Latest Vital Signs: Temperature 97.5 , Pulse 60 , B/P 113 /50 , Respiratory Rate 18 , O2 SAT 99 , , O2 Flow Rate . Vital Sign Comment: [] EKG Rhythm: A-Paced Rhythm change?: N MD Notified?: - MD Response: Latest Munroe Fall Score: 55 Fall Risk: High Risk Safety Measures: Call light Within Reach, Bed Alarm Zone 2, Side Rails Side Rails x2, Bed position Low and Locked. Fall Precautions: Yellow Socks Yellow Gown Door Sign Patient Fall Education Report given to []. Addendum: 06/26/20 at 1920 by Yvonne Munoz RN Patient report given to Tucker [id number]
--- NOTE | 2020-06-26 19:15 | NUR ---
NURSE NOTES: Pt received from JENNIFER Russell. Pt is resting comfortably in bed and c/o pain in eyes relieved by eye drop medication. Pt is A/Ox3 and unoriented to time. Pt is bedbound, able to use wheelchair, and requires q2h turning. Pt is on cardiac monitoring Apaced with BLE swelling. Pt is breathing unlabored on RA and asymptomatic. Pt has RAC 20G and LFA 22G running NS 70ml/hr both patent with dressing dry and intact. Bed is locked and in lowest position with call light within reach. Will continue to monitor.
[2020-06-26 20:00] VITALS: BP 94/44
[2020-06-26] MEDS: Dyna-Hex 2% Top Sol 2oz TOPIC SCH (20:19)
[2020-06-26] MEDS: Atorvastatin 20mg tab ORAL SCH (20:19)
--- NOTE | 2020-06-26 21:00 | NUR ---
NURSE NOTES: Pt reports difficulty sleeping and resting even with fatigue. Requested sleep medication. Notified Dr Hallman and received new order for medication. Pt received medication and states attempt to sleep. Will continue to monitor.
--- NOTE | 2020-06-26 21:29 | History and Physical Report ---
DATE OF ADMISSION: 06/25/2020 CHIEF COMPLAINT: Severe anemia, acute renal failure, congestive heart failure. HISTORY OF PRESENT ILLNESS: The patient is an 84-year-old male, well known to me. He has a history of hypertensive heart disease, chronic kidney disease, paroxysmal atrial fibrillation, history of stroke, thoracic aneurysm status post repair. 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 He was sent to the emergency room because of his overall poor condition and shortness of breath. He was noted in the emergency room to be significantly anemic with a hemoglobin of 5.8. His creatinine was elevated at 2.7. He had elevated liver function tests. CT scan of the head was negative. CT scan of the abdomen showed diffuse anasarca and CHF. The patient is Religion and declined a blood transfusion. He has been admitted now for further evaluation and care. PAST MEDICAL HISTORY: As above. PAST SURGICAL HISTORY: Includes thoracic aneurysm repair. CURRENT MEDICATIONS: Reconciled and reviewed. ALLERGIES: None. FAMILY HISTORY: None. SOCIAL HISTORY: There is no known history of tobacco, ethanol, or drugs. REVIEW OF SYSTEMS: GENERAL: No fevers or chills. HEENT: No headaches or visual changes. CARDIOPULMONARY: No chest pain or shortness of breath. GI: No nausea or vomiting. Positive anorexia. : No urgency or frequency. MUSCULOSKELETAL: No joint pain or swelling. NEURO: No history of seizures. PHYSICAL EXAMINATION: VITAL SIGNS: Temperature 98, pulse 53, respirations 14, blood pressure 111/55. GENERAL: The patient is a chronically ill looking male. He is poorly responsive, but does answer some simple questions and follow simple commands. HEENT: Head is normocephalic and atraumatic. Sclerae anicteric. Oropharynx clear. NECK: Supple. There is mild jugular venous distention noted. HEART: Regular rate and rhythm. No murmurs, rubs, or gallops. LUNGS: Scattered rhonchi. ABDOMEN: Soft, nontender, nondistended. EXTREMITIES: Significant for 3+ pitting edema. LABORATORY DATA: White count 7, hemoglobin 5 8, hematocrit 20. Sodium 145, BUN 62, creatinine is 2.7. Total bilirubin of 1.9. ASSESSMENT: This is an 80-year-old male with complaints of severe anemia of unclear etiology, acute renal failure, congestive heart failure exacerbation. PLAN: Cautious diuresis. IV proton pump inhibitor. Check stool for occult blood. Iron replacement and high-dose Epogen. Again the option of the transfusion was discussed with the patient. He is Religion. He is aware that his hemoglobin and hematocrit is at critical at a potential life-threatening level, but again declines transfusion. He is aware of the risks including . Sumit Hallman M.D. DR: JAMIR JOB#: [id number] CC:
[2020-06-26 21:40] LABS: APPEARANCE,URINE CLOUDY; BILIRUBIN, URINE NEGATIVE (NEGATIVE); GLUCOSE, URINE (UA) NEGATIVE (NEGATIVE); KETONES,URINE NEGATIVE (NEGATIVE); LEUKOCYTE ESTERASE ,URINE 1+ (NEGATIVE); NITRITE,URINE NEGATIVE (NEGATIVE); PH,URINE 6 (4.5-8.0); PROTEIN,URINE 2+ (NEGATIVE); UROBILINOGEN,URINE 4 MG/DL (0.0-1.0)
[2020-06-26 21:43] LABS: COLOR,URINE YELLOW
[2020-06-27] VITALS: BP 110/54
[2020-06-27] MEDS: Gentamicin 0.3% Opth Soln 5ml BOTH EYES SCH ×6 (00:37→20:25)
--- NOTE | 2020-06-27 01:44 | Consultation ---
DATE OF CONSULTATION: 06/26/2020 GASTROENTEROLOGY CONSULTATION CONSULTING PHYSICIAN: Jacob Deleon MD CHIEF COMPLAINT: I was asked to see this patient by Dr. Sumit Hallman for evaluation of anemia. HISTORY OF PRESENT ILLNESS: The patient is an 84-year-old man who is a Rastafarian who has multiple medical problems who was brought in to the hospital due to severe anemia. Patient denies any abdominal pain, nausea, vomiting, diarrhea, or constipation, although he reports now that for the past 1 day he had some abdominal pain in lower belly. The patient states his last colonoscopy was approximately 10 years ago. He cannot recall any history of anemia, although he is somewhat of a poor historian. PAST MEDICAL HISTORY: History of hypertension, hypercholesterolemia, history of thoracic aneurysm repair. FAMILY HISTORY: Noncontributory. SOCIAL HISTORY: Patient denies any smoking or drinking. He is . He has 2 children one of whom is . He is a Rastafarian. REVIEW OF SYSTEMS: Otherwise negative. PHYSICAL EXAMINATION: GENERAL: Elderly, man, seen in his room, in no distress. HEENT: Normocephalic and atraumatic. Sclerae are anicteric. Oropharynx clear. NECK: Supple. CHEST: Clear to auscultation. CARDIOVASCULAR: Revealed a regular rate. ABDOMEN: Soft and mildly distended. There is some mild tenderness to palpation in the lower quadrant without guarding or rebound. EXTREMITIES: Revealed bilateral lower extremity edema. LABORATORY DATA: Noted. ASSESSMENT: This patient presents with severe microcytic anemia, which has also iron deficiency indices. Patient can be a candidate for endoscopy and colonoscopy. However, he is Rastafarian and refuses transfusion and therefore the procedure should ideally be delayed to improve patient's operative risk. I would give daily doses of erythropoietin on a temporary basis as well as intravenous iron infusions trying to boost the patient's hematopoiesis. Should the above parameters improve by next week, then endoscopy and colonoscopy can be considered. There is no evidence of active gastrointestinal bleeding and therefore the procedure is not necessary on an urgent basis. For the patient's abdominal discomfort, a CT scan of the abdomen and pelvis can be ordered and further recommendations will be made. RECOMMENDATIONS: 1. PO intake as tolerated. 2. Intravenous iron. 3. Erythropoietin. 4. Monitor CBC. 5. Proton pump inhibitor. 6. Endoscopy and colonoscopy once patient's medical parameters have improved. Jacob Deleon M.D. DR: ESTRELLA JOB#: [id number] CC: PETER
[2020-06-27 04:00] VITALS: BP 122/67
[2020-06-27 05:20] LABS: HEMATOCRIT 19.2 % (42.0-52.0); MEAN CORPUSCULAR VOLUME 81 FL (80-99); PLATELET COUNT 134 K/UL (150-450); RED BLOOD COUNT 2.36 M/UL (4.70-6.10); RED CELL DISTRIBUTION WIDTH 21.3 % (11.6-14.8); WHITE BLOOD COUNT 5.5 K/UL (4.8-10.8)
[2020-06-27 05:27] LABS: HEMOGLOBIN 5.6 G/DL (14.2-18.0)
[2020-06-27 05:33] LABS: CALCIUM 9.4 MG/DL (8.5-10.1); CREATININE 2.3 MG/DL (0.55-1.30); POTASSIUM 3.6 MMOL/L (3.5-5.1)
--- NOTE | 2020-06-27 06:28 | NUR ---
NURSE HAND-OFF REPORT: Important Events on Shift:Pt received scheduled medications. Pt received new order for sleep medication. Patient Status: Stable Diet: Cardiac Diet Pending Orders: Pending Results/Labs:AM labs Pending MD notification: Latest Vital Signs: Temperature 97.9 , Pulse 80 , B/P 122 /67 , Respiratory Rate 16 , O2 SAT 100 , , O2 Flow Rate . Vital Sign Comment: VSS EKG Rhythm: A-Paced Rhythm change?: N MD Notified?: - MD Response: Latest Munroe Fall Score: 55 Fall Risk: High Risk Safety Measures: Call light Within Reach, Bed Alarm Zone 2, Side Rails Side Rails x2, Bed position Low and Locked. Fall Precautions: Yellow Socks Yellow Gown Door Sign Patient Fall Education Report given to JENNIFER Russell.
--- NOTE | 2020-06-27 07:24 | NUR ---
NURSE NOTES: Patient received from Tucker Ruiz RN. Patient alert and oriented x 3. No c/o pain, no s/s of respiratory distress, breathing even and unlabored., saturating well in room air. IV site patent and intact, no redness and no erythema noted. Low Hgb noted will notify doctor, patient has signed papers for refusal of blood transfusion, MD aware. Bed in lowest position and locked. Call light and bedside table within reach.
[2020-06-27 07:46] VITALS: BP 118/60
[2020-06-27] MEDS: Amiodarone 200mg tab ORAL SCH (08:12)
[2020-06-27] MEDS: Tamsulosin 0.4mg cap ORAL SCH (08:12)
[2020-06-27 12:00] VITALS: BP 115/59
--- NOTE | 2020-06-27 12:29 | General Progress Note ---
Subjective ROS Limited/Unobtainable: No Constitutional: Reports: malaise, weakness HEENT: Reports: no symptoms Cardiovascular: Reports: edema Respiratory: Reports: cough, shortness of breath Gastrointestinal/Abdominal: Reports: no symptoms Genitourinary: Reports: no symptoms Neurologic/Psychiatric: Reports: pre-existing deficit Endocrine: Reports: no symptoms Hematologic/Lymphatic: Reports: anemia Allergies: Coded Allergies: No Known Allergies (Verified , 01/23/09) All Systems: reviewed and negative except above Subjective Stable shortness of breath. Good urine output on IV Lasix. Still with generalized edema. Hemoglobin stable. GI consult appreciated. Renal function slightly better. No fevers chills or cough. Objective Last 24 Hour Vital Signs Date Time Temp Pulse Resp B/P (MAP) Pulse Ox O2 Delivery O2 Flow Rate FiO2 06/27/20 12:00 97.9 60 18 115/59 (77) 98 06/27/20 09:00 Room Air 06/27/20 08:00 60 06/27/20 07:46 97.7 80 20 118/60 (79) 99 06/27/20 04:00 97.9 80 16 122/67 (85) 100 06/27/20 04:00 60 06/27/20 00:00 97.4 60 18 110/54 (72) 98 06/27/20 00:00 60 06/26/20 21:00 Room Air 06/26/20 20:00 97.8 74 18 94/44 (61) 98 06/26/20 20:00 60 06/26/20 16:00 60 06/26/20 16:00 97.5 60 18 113/50 (71) 99 Intake and Output 06/26/20 06/27/20 19:00 07:00 Intake Total 120 ml 800 ml Output Total 600 ml 1200 ml Balance -480 ml -400 ml Intake Oral 120 ml 800 ml Output Urine Total 600 ml 1200 ml Laboratory Tests 06/26/20 18:35: Stool Occult Blood Positive 06/26/20 21:15: Urine Color Yellow, Urine Appearance Cloudy, Urine pH 6, Urine Specific [place] 1.010, Urine Protein 2+H, Urine Glucose (UA) Negative, Urine Ketones Negative, Urine Blood 5+H, Urine Nitrite Negative, Urine Bilirubin Negative, Urine Urobilinogen 4H, Urine Leukocyte Esterase 1+H, Urine RBC 40-60H, Urine WBC 5-10H , Urine Squamous Epithelial Cells Occasional, Urine Bacteria ManyH 06/27/20 04:50: White Blood Count 5.5, Red Blood Count 2.36L, Hemoglobin 5.6*L, Hematocrit 19.2L , Mean Corpuscular Volume 81, Mean Corpuscular Hemoglobin 23.5L, Mean Corpuscular Hemoglobin Concent 28.9L, Red Cell Distribution Width 21.3H, Platelet Count 134L, Mean Platelet Volume 8.8, Neutrophils (%) (Auto) , Lymphocytes (%) (Auto) , Monocytes (%) (Auto) , Eosinophils (%) (Auto) , Basophils (%) (Auto) , Differential Total Cells Counted 100, Neutrophils % (Manual) 54, Lymphocytes % (Manual) 33, Monocytes % (Manual) 5, Eosinophils % (Manual) 8H, Basophils % (Manual) 0, Band Neutrophils 0, Nucleated Red Blood Cells 3, Platelet Estimate DecreasedL, Platelet Morphology , Giant Platelets Occasional, Hypochromasia 3+, Anisocytosis 3+, Schistocytes 1+, Sodium Level 144, Potassium Level 3.6, Chloride Level 109H, Carbon Dioxide Level 25, Anion Gap 10, Blood Urea Nitrogen 52H, Creatinine 2.3H, Estimat Glomerular Filtration Rate 33.0, Glucose Level 94, Calcium Level 9.4 Height (Feet): 6 Height (Inches): 2.00 Weight (Pounds): 204 General Appearance: WD/WN, alert, confused EENT: normal ENT inspection Neck: normal alignment, supple Cardiovascular: normal rate, regular rhythm Respiratory/Chest: chest wall non-tender, lungs clear, normal breath sounds, no respiratory distress, no accessory muscle use Abdomen: normal bowel sounds, non tender, soft, no organomegaly Edema: 3+ Pedal (L), 3+ Pedal (R) Edema: severe edema Neurologic: manager decision support II-XII 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, alert, responsive Skin: normal pigmentation, warm/dry Assessment/Plan Problem List: (1) Acute exacerbation of CHF (congestive heart failure) (2) Swelling of lower extremity ICD Codes: M79.89 - Other specified soft tissue disorders SNOMED: 522561784, 338134958 (3) Orthopnea (4) CHF (congestive heart failure) ICD Codes: I50.9 - CHF (congestive heart failure) SNOMED: 01899208 (5) Atrial fibrillation ICD Codes: I48.91 - Atrial fibrillation SNOMED: 71370286 (6) Anemia ICD Codes: D64.9 - Anemia, unspecified SNOMED: 674000997 (7) Elevated troponin ICD Codes: R74.8 - Elevated troponin SNOMED: 330821548 Status: stable, progressing Assessment/Plan: Continue IV diuresis Elevate legs Monitor renal function and lites with diuresis Continue Epogen and iron supplements Follow-up urine cultures Monitor for bleeding IV proton pump inhibitors Endoscopy next week when more stable Sumit Hallman MD Jun 27, 2020 12:29
[2020-06-27] MEDS ORDERED: NEURONTIN300 MG ORAL (13:42)
[2020-06-27] MEDS ORDERED: POTASSIUM CHLO20 ME1 ORAL (13:42)
[2020-06-27] MEDS ORDERED: DUONEB 0.5-3(2.53 ML HHN (13:42)
[2020-06-27] MEDS ORDERED: PROVENTIL HFA6.7 G1 IH (13:42)
[2020-06-27] MEDS ORDERED: FLUTICASONE PRO16 G1 NASAL (13:42)
[2020-06-27] MEDS ORDERED: PACERONE100 MG ORAL (13:42)
[2020-06-27] MEDS ORDERED: GENTAK5 ML BOTH EYES (13:42)
[2020-06-27] MEDS ORDERED: VOLTAREN100 G1 TP (13:42)
--- NOTE | 2020-06-27 13:51 | NUR ---
CASE MANAGEMENT:REVIEW 06/27/20 SI: ANEMIA IN SETTING OF [facility] 97.9 60 18 115/59 98% ON RA H/H-5.6/19.2 PLT-134 BUN+52 CR+2.3 IS; IV VENOFER QHS IV LASIX QD EPOETIN SQ QOD FLOMAX PO QD AMIODARONE PO QD PROTONIX PO QD : TELEMETRY STATUS DCP: FROM HOME
[2020-06-27 16:00] VITALS: BP 120/63
--- NOTE | 2020-06-27 17:48 | NUR ---
NURSE HAND-OFF REPORT: Important Events on Shift:[Hgb low, MD aware of patient's refusal for blood transfusion] Patient Status: [FC, Alert awake orientedx3] Diet: [Cardiac Diet] Pending Orders: [] Pending Results/Labs:[] Pending MD notification:[] Latest Vital Signs: Temperature 97.5 , Pulse 60 , B/P 120 /63 , Respiratory Rate 20 , O2 SAT 97 , , O2 Flow Rate . Vital Sign Comment: [] EKG Rhythm: A-Paced Rhythm change?: N MD Notified?: - MD Response: Latest Munroe Fall Score: 55 Fall Risk: High Risk Safety Measures: Call light Within Reach, Bed Alarm Zone 2, Side Rails Side Rails x2, Bed position Low and Locked. Fall Precautions: Yellow Socks Yellow Gown Door Sign Patient Fall Education Report given to []. Addendum: 06/27/20 at 1916 by Yvonne Munoz RN Patient report given to Tucker RODRIGUEZ
--- NOTE | 2020-06-27 18:53 | General Progress Note ---
Subjective Allergies: Coded Allergies: No Known Allergies (Verified , 01/23/09) Subjective feels weak Objective Last 24 Hour Vital Signs Date Time Temp Pulse Resp B/P (MAP) Pulse Ox O2 Delivery O2 Flow Rate FiO2 06/27/20 16:00 97.5 60 20 120/63 (82) 97 06/27/20 16:00 60 06/27/20 12:00 60 06/27/20 12:00 97.9 60 18 115/59 (77) 98 06/27/20 09:00 Room Air 06/27/20 08:00 60 06/27/20 07:46 97.7 80 20 118/60 (79) 99 06/27/20 04:00 97.9 80 16 122/67 (85) 100 06/27/20 04:00 60 06/27/20 00:00 97.4 60 18 110/54 (72) 98 06/27/20 00:00 60 06/26/20 21:00 Room Air 06/26/20 20:00 97.8 74 18 94/44 (61) 98 06/26/20 20:00 60 Intake and Output 06/26/20 06/27/20 19:00 07:00 Intake Total 120 ml 800 ml Output Total 600 ml 1200 ml Balance -480 ml -400 ml Intake Oral 120 ml 800 ml Output Urine Total 600 ml 1200 ml Laboratory Tests 06/26/20 21:15: Urine Color Yellow, Urine Appearance Cloudy, Urine pH 6, Urine Specific [place] 1.010, Urine Protein 2+H, Urine Glucose (UA) Negative, Urine Ketones Negative, Urine Blood 5+H, Urine Nitrite Negative, Urine Bilirubin Negative, Urine Urobilinogen 4H, Urine Leukocyte Esterase 1+H, Urine RBC 40-60H, Urine WBC 5-10H , Urine Squamous Epithelial Cells Occasional, Urine Bacteria ManyH 06/27/20 04:50: White Blood Count 5.5, Red Blood Count 2.36L, Hemoglobin 5.6*L, Hematocrit 19.2L , Mean Corpuscular Volume 81, Mean Corpuscular Hemoglobin 23.5L, Mean Corpuscular Hemoglobin Concent 28.9L, Red Cell Distribution Width 21.3H, Platelet Count 134L, Mean Platelet Volume 8.8, Neutrophils (%) (Auto) , Lymphocytes (%) (Auto) , Monocytes (%) (Auto) , Eosinophils (%) (Auto) , Basophils (%) (Auto) , Differential Total Cells Counted 100, Neutrophils % (Manual) 54, Lymphocytes % (Manual) 33, Monocytes % (Manual) 5, Eosinophils % (Manual) 8H, Basophils % (Manual) 0, Band Neutrophils 0, Nucleated Red Blood Cells 3, Platelet Estimate DecreasedL, Platelet Morphology , Giant Platelets Occasional, Hypochromasia 3+, Anisocytosis 3+, Schistocytes 1+, Sodium Level 144, Potassium Level 3.6, Chloride Level 109H, Carbon Dioxide Level 25, Anion Gap 10, Blood Urea Nitrogen 52H, Creatinine 2.3H, Estimat Glomerular Filtration Rate 33.0, Glucose Level 94, Calcium Level 9.4 Height (Feet): 6 Height (Inches): 2.00 Weight (Pounds): 204 Objective NCAT supple CTA RRR abd mildly distended, mild diffuse TTP (+) edema Assessment/Plan Status: stable, progressing Assessment/Plan: Assessment - Iron deficiency anemia - Jehovas, declines transfusion - lower abdominal TTP, ? etiology - b/l edema and anasarca - anemia - azotemia - CHF - COPD - CHF Recommendations - Daily EPO - IV Iron - check CT abd/pelvis --> anasarca, diverticulosis - PPI - EGD/Colon once H&H improved Jacob Deleon MD Jun 27, 2020 18:53
--- NOTE | 2020-06-27 19:42 | NUR ---
NURSE NOTES: Pt received from JENNIFER Russell. Pt is resting comfortably in bed and c/o pain in eyes relieved by eye drop medication. Pt is A/Ox3 and unoriented to time. Pt is bedbound, able to use wheelchair, and requires q2h turning. Pt is on cardiac monitoring Apaced with BLE swelling. Pt is breathing unlabored on RA and asymptomatic. Pt has RAC 20G and LFA 22G running NS 70ml/hr both not patent and will be replaced. Bed is locked and in lowest position with call light within reach. Will continue to monitor.
[2020-06-27 20:00] VITALS: BP 113/73
[2020-06-27] MEDS: Atorvastatin 20mg tab ORAL SCH (20:24)
[2020-06-27] MEDS: Dyna-Hex 2% Top Sol 2oz TOPIC SCH (20:25)
[2020-06-27] MEDS ORDERED: Iron Sucrose 100 MG in NS 55 ML IVPB SCH (21:00)
[2020-06-27] MEDS: Iron Sucrose 100 MG in NS 55 ML IVPB SCH (21:00)
--- NOTE | 2020-06-27 21:00 | NUR ---
NURSE NOTES: Pt has two IV sites currently not patent. Replaced IV with new site in LAC 18G. IV is patent with dressing dry and intact. Will continue to monitor.
[2020-06-28] VITALS: BP 118/60
[2020-06-28] MEDS: Gentamicin 0.3% Opth Soln 5ml BOTH EYES SCH ×6 (01:15→20:26)
[2020-06-28 04:00] VITALS: BP 108/57
[2020-06-28 08:00] VITALS: BP 91/45
[2020-06-28] MEDS: Tamsulosin 0.4mg cap ORAL SCH (08:54)
[2020-06-28] MEDS: Amiodarone 200mg tab ORAL SCH (08:54)
--- NOTE | 2020-06-28 09:00 | NUR ---
NURSE NOTES: RECIEVED PT. IN BED EYES CLOSED BUT EASILY AROUSABLE, NO DISTRESS NOTED @ THIS TIME.TURNED AND REPOSITIONED FOR COMFORT.CALL LIGHT WITHIN REACH.INSTRUCTED TO CALL FOR ANY ASSISTANCE,VERBALIZES UNDERSTANDING.CONTINUE W/ PLAN OF CARE.
[2020-06-28] MEDS ORDERED: Tubing IV Secondary IV ONE (09:56)
--- NOTE | 2020-06-28 11:25 | General Progress Note ---
Subjective ROS Limited/Unobtainable: No Constitutional: Reports: malaise, weakness HEENT: Reports: no symptoms Cardiovascular: Reports: edema Respiratory: Reports: no symptoms Gastrointestinal/Abdominal: Reports: no symptoms Genitourinary: Reports: no symptoms Neurologic/Psychiatric: Reports: pre-existing deficit Endocrine: Reports: no symptoms Hematologic/Lymphatic: Reports: anemia Allergies: Coded Allergies: No Known Allergies (Verified , 01/23/09) All Systems: reviewed and negative except above Subjective more alert. eating breakfast. Good urine output on IV Lasix. Still with generalized edema. labs pending today. Objective Last 24 Hour Vital Signs Date Time Temp Pulse Resp B/P (MAP) Pulse Ox O2 Delivery O2 Flow Rate FiO2 06/28/20 08:00 64 06/28/20 08:00 97.0 68 20 91/45 (60) 98 06/28/20 04:00 97.7 60 18 108/57 (74) 98 06/28/20 04:00 60 06/28/20 00:00 97.7 60 19 118/60 (79) 99 06/27/20 21:00 Room Air 06/27/20 20:00 98.9 59 20 113/73 (86) 98 06/27/20 20:00 60 06/27/20 16:00 97.5 60 20 120/63 (82) 97 06/27/20 16:00 60 06/27/20 12:00 60 06/27/20 12:00 97.9 60 18 115/59 (77) 98 Intake and Output 06/27/20 06/28/20 19:00 07:00 Intake Total 360 ml 800 ml Output Total 800 ml Balance -440 ml 800 ml Intake Oral 360 ml 800 ml Output Urine Total 800 ml Height (Feet): 6 Height (Inches): 2.00 Weight (Pounds): 204 Objective General Appearance: WD/WN, alert, confused EENT: normal ENT inspection Neck: normal alignment, supple Cardiovascular: normal rate, regular rhythm Respiratory/Chest: chest wall non-tender, lungs clear, normal breath sounds, no respiratory distress, no accessory muscle use Abdomen: normal bowel sounds, non tender, soft, no organomegaly Edema: 3+ Pedal (L), 3+ Pedal (R) Edema: severe edema Neurologic: orthopedic surgeon II-XII 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, alert, responsive Skin: normal pigmentation, warm/dry Assessment/Plan Problem List: (1) Acute exacerbation of CHF (congestive heart failure) (2) Swelling of lower extremity ICD Codes: M79.89 - Other specified soft tissue disorders SNOMED: 378216721, 370694641 (3) Orthopnea (4) CHF (congestive heart failure) ICD Codes: I50.9 - CHF (congestive heart failure) SNOMED: 45251364 (5) Atrial fibrillation ICD Codes: I48.91 - Atrial fibrillation SNOMED: 64725389 (6) Anemia ICD Codes: D64.9 - Anemia, unspecified SNOMED: 708091652 (7) Elevated troponin ICD Codes: R74.8 - Elevated troponin SNOMED: 138473105 Status: stable, progressing Assessment/Plan: Continue IV diuresis Elevate legs Monitor renal function and lites with diuresis Continue Epogen and iron supplements Follow-up urine cultures Monitor for bleeding IV proton pump inhibitors Endoscopy next week when more stable Sumit Hallman MD Jun 28, 2020 11:25
[2020-06-28 12:00] VITALS: BP 100/44
[2020-06-28 12:30] LABS: CALCIUM 9.4 MG/DL (8.5-10.1); CREATININE 2.2 MG/DL (0.55-1.30); POTASSIUM 3.5 MMOL/L (3.5-5.1)
[2020-06-28 16:00] VITALS: BP 105/48
--- NOTE | 2020-06-28 19:53 | NUR ---
NURSE HAND-OFF REPORT: Important Events on Shift:[no] Patient Status: full Diet: cardiac diet Pending Orders: [] Pending Results/Labs:[] Pending MD notification:[] Latest Vital Signs: Temperature 97.5 , Pulse 60 , B/P 105 /48 , Respiratory Rate 20 , O2 SAT 98 , , O2 Flow Rate . Vital Sign Comment: [] EKG Rhythm: A-Paced Rhythm change?: N MD Notified?: - MD Response: Latest Munroe Fall Score: 55 Fall Risk: High Risk Safety Measures: Call light Within Reach, Bed Alarm Zone 2, Side Rails Side Rails x2, Bed position Low and Locked. Fall Precautions: Yellow Socks Report given to [].KIKI FERRIS
[2020-06-28 20:00] VITALS: BP 100/51
[2020-06-28] MEDS: Atorvastatin 20mg tab ORAL SCH (20:24)
[2020-06-28] MEDS: Epoetin Alfa-EPBX (NON ESRD)10,000 unit/ml vial SUBQ SCH (20:25)
[2020-06-28] MEDS: Dyna-Hex 2% Top Sol 2oz TOPIC SCH (20:25)
[2020-06-28] MEDS: Iron Sucrose 100 MG in NS 55 ML IVPB SCH (20:26)
--- NOTE | 2020-06-28 21:45 | General Progress Note ---
Subjective Allergies: Coded Allergies: No Known Allergies (Verified , 01/23/09) Subjective eating OK d/w patient re plan of care Objective Last 24 Hour Vital Signs Date Time Temp Pulse Resp B/P (MAP) Pulse Ox O2 Delivery O2 Flow Rate FiO2 06/28/20 16:00 97.5 59 20 105/48 (67) 98 06/28/20 16:00 60 06/28/20 12:00 60 06/28/20 12:00 97.7 60 20 100/44 (62) 98 06/28/20 09:00 Room Air 06/28/20 08:00 64 06/28/20 08:00 97.0 68 20 91/45 (60) 98 06/28/20 04:00 97.7 60 18 108/57 (74) 98 06/28/20 04:00 60 06/28/20 00:00 97.7 60 19 118/60 (79) 99 Intake and Output 06/27/20 06/28/20 19:00 07:00 Intake Total 360 ml 800 ml Output Total 800 ml Balance -440 ml 800 ml Intake Oral 360 ml 800 ml Output Urine Total 800 ml Laboratory Tests 06/28/20 11:50: Sodium Level 140, Potassium Level 3.5, Chloride Level 107, Carbon Dioxide Level 25, Anion Gap 8, Blood Urea Nitrogen 44H, Creatinine 2.2H, Estimat Glomerular Filtration Rate 34.8, Glucose Level 96, Calcium Level 9.4 Height (Feet): 6 Height (Inches): 2.00 Weight (Pounds): 204 Objective NCAT supple CTA RRR abd mildly distended, mild diffuse TTP (+) edema Assessment/Plan Status: stable, progressing Assessment/Plan: Assessment - Iron deficiency anemia - Jehovas, declines transfusion - lower abdominal TTP, ? etiology - b/l edema and anasarca - anemia - azotemia - CHF - COPD - CHF Recommendations - Daily EPO - IV Iron - check CT abd/pelvis --> anasarca, diverticulosis - PPI - EGD/Colon once H&H improved Jacob Deleon MD Jun 28, 2020 21:45
--- NOTE | 2020-06-28 23:15 | NUR ---
NURSE NOTES: Wound care on sacral and scrotum performed, pt. tolerated well. Will upload wound pictures per protocol.
[2020-06-29] VITALS: BP 112/52
[2020-06-29] MEDS: Gentamicin 0.3% Opth Soln 5ml BOTH EYES SCH ×6 (01:43→20:16)
[2020-06-29 04:00] VITALS: BP 117/70
--- NOTE | 2020-06-29 07:02 | NUR ---
NURSE HAND-OFF REPORT: Important Events on Shift:[Pt. with pain, treated with PRN pain medication, wounds dressed and wound pictures taken] Patient Status: stable, eating Diet: cardiac Pending Orders: na Pending Results/Labs:na Pending MD notification:na Latest Vital Signs: Temperature 97.9 , Pulse 60 , B/P 117 /70 , Respiratory Rate 20 , O2 SAT 96 , , O2 Flow Rate . Vital Sign Comment: EKG Rhythm: A-Paced Rhythm change?: N MD Notified?: - MD Response: Latest Munroe Fall Score: 50 Fall Risk: High Risk Safety Measures: Call light Within Reach, Bed Alarm Zone 1, Side Rails Side Rails x2, Bed position Low and Locked. Fall Precautions: Yellow Socks Report given to [JENNIFER Vasquez].
--- NOTE | 2020-06-29 07:05 | NUR ---
NURSE NOTES: Received report from Dylon/RN, Observed patient awake, sitting up and eating breakfast in bed, on room air, no acute distress/SOB noted. Able to make needs known, Denies pain at this time. IV on Left AC patent and intact. Bed in low position and locked, Call light within reach. Encouraged to use call light when needed. Will continue plan of care.
[2020-06-29 08:00] VITALS: BP 100/49
[2020-06-29 08:18] LABS: HEMATOCRIT 20.1 % (42.0-52.0); MEAN CORPUSCULAR VOLUME 81 FL (80-99); PLATELET COUNT 145 K/UL (150-450); RED BLOOD COUNT 2.47 M/UL (4.70-6.10); RED CELL DISTRIBUTION WIDTH 21.9 % (11.6-14.8); WHITE BLOOD COUNT 6.9 K/UL (4.8-10.8)
[2020-06-29 08:27] LABS: HEMOGLOBIN 5.8 G/DL (14.2-18.0)
[2020-06-29] MEDS: Tamsulosin 0.4mg cap ORAL SCH (08:30)
[2020-06-29] MEDS: Amiodarone 200mg tab ORAL SCH (08:30)
[2020-06-29 08:40] LABS: CALCIUM 9.7 MG/DL (8.5-10.1); CREATININE 2.1 MG/DL (0.55-1.30); POTASSIUM 3.7 MMOL/L (3.5-5.1)
--- NOTE | 2020-06-29 09:34 | General Progress Note ---
Subjective ROS Limited/Unobtainable: No Constitutional: Reports: malaise, weakness HEENT: Reports: no symptoms Cardiovascular: Reports: edema Respiratory: Reports: cough Gastrointestinal/Abdominal: Reports: no symptoms Genitourinary: Reports: no symptoms Neurologic/Psychiatric: Reports: emotional problems, pre-existing deficit Endocrine: Reports: no symptoms Hematologic/Lymphatic: Reports: anemia Allergies: Coded Allergies: No Known Allergies (Verified , 01/23/09) All Systems: reviewed and negative except above Subjective more alert. eating breakfast. Good urine output on IV Lasix. Still with generalized edema but improving. labs improving but still with severe anemia. Objective Last 24 Hour Vital Signs Date Time Temp Pulse Resp B/P (MAP) Pulse Ox O2 Delivery O2 Flow Rate FiO2 06/29/20 08:00 98.1 63 20 100/49 (66) 98 06/29/20 04:00 97.9 60 20 117/70 (86) 96 06/29/20 04:00 60 06/29/20 00:00 98.9 60 22 112/52 (72) 100 06/29/20 00:00 60 06/28/20 21:00 Room Air 06/28/20 20:00 97.9 60 20 100/51 (67) 97 06/28/20 20:00 60 06/28/20 16:00 97.5 59 20 105/48 (67) 98 06/28/20 16:00 60 06/28/20 12:00 60 06/28/20 12:00 97.7 60 20 100/44 (62) 98 Intake and Output 06/28/20 06/29/20 19:00 07:00 Intake Total 730 ml 360 ml Output Total 450 ml 400 ml Balance 280 ml -40 ml Intake Oral 730 ml 300 ml IV Total 60 ml Output Urine Total 450 ml 400 ml Laboratory Tests 06/28/20 11:50: Sodium Level 140, Potassium Level 3.5, Chloride Level 107, Carbon Dioxide Level 25, Anion Gap 8, Blood Urea Nitrogen 44H, Creatinine 2.2H, Estimat Glomerular Filtration Rate 34.8, Glucose Level 96, Calcium Level 9.4 06/29/20 07:30: Sodium Level 142, Potassium Level 3.7, Chloride Level 108H, Carbon Dioxide Level 25, Anion Gap 9, Blood Urea Nitrogen 42H, Creatinine 2.1H, Estimat Glomerular Filtration Rate 36.6, Glucose Level 101, Calcium Level 9.7, White Blood Count 6.9, Red Blood Count 2.47L, Hemoglobin 5.8*L, Hematocrit 20.1L, Mean Corpuscular Volume 81, Mean Corpuscular Hemoglobin 23.6L, Mean Corpuscular Hemoglobin Concent 29.1L, Red Cell Distribution Width 21.9H, Platelet Count 145L, Mean Platelet Volume 8.2, Neutrophils (%) (Auto) , Lymphocytes (%) (Auto) , Monocytes (%) (Auto) , Eosinophils (%) (Auto) , Basophils (%) (Auto) , Differential Total Cells Counted 100, Neutrophils % (Manual) 71, Lymphocytes % (Manual) 21, Monocytes % (Manual) 8, Eosinophils % (Manual) 0, Basophils % (Manual) 0, Band Neutrophils 0, Nucleated Red Blood Cells 1, Platelet Estimate DecreasedL, Platelet Morphology Normal, Polychromasia 1+, Hypochromasia 2+, Anisocytosis 3+, Acanthocytes Occasional, Schistocytes 1+ Height (Feet): 6 Height (Inches): 2.00 Weight (Pounds): 204 Objective General Appearance: WD/WN, alert, confused EENT: normal ENT inspection Neck: normal alignment, supple Cardiovascular: normal rate, regular rhythm Respiratory/Chest: chest wall non-tender, lungs clear, normal breath sounds, no respiratory distress, no accessory muscle use Abdomen: normal bowel sounds, non tender, soft, no organomegaly Edema: 3+ Pedal (L), 3+ Pedal (R) Edema: severe edema Neurologic: podiatric physician II-XII 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, alert, responsive Skin: normal pigmentation, warm/dry Assessment/Plan Problem List: (1) Acute exacerbation of CHF (congestive heart failure) (2) Swelling of lower extremity ICD Codes: M79.89 - Other specified soft tissue disorders SNOMED: 009535029, 276462426 (3) Orthopnea (4) CHF (congestive heart failure) ICD Codes: I50.9 - CHF (congestive heart failure) SNOMED: 45810290 (5) Atrial fibrillation ICD Codes: I48.91 - Atrial fibrillation SNOMED: 38973661 (6) Anemia ICD Codes: D64.9 - Anemia, unspecified SNOMED: 448496465 (7) Elevated troponin ICD Codes: R74.8 - Elevated troponin SNOMED: 648907161 Status: stable, progressing Assessment/Plan: Continue IV diuresis Elevate legs Monitor renal function and lites with diuresis Continue Epogen and iron supplements refusinf transfusion- pt jehovahs witness pansensitive ecoli in urine - on iv abx Monitor for bleeding IV proton pump inhibitors Endoscopy next week when more stable Sumit Hallman MD Jun 29, 2020 09:34
--- NOTE | 2020-06-29 10:15 | NUR ---
NURSE NOTES: Patient stated burning on both eyes after receiving eye drops, Contacted dr. Hallman for if patient can have different medication. Per dr. Hallman, he will contact ID doctor for alternatives.
[2020-06-29 12:00] VITALS: BP 119/57
--- NOTE | 2020-06-29 13:00 | NUR ---
NURSE NOTES: Patient refused eye drops.
[2020-06-29 16:00] VITALS: BP 111/56
--- NOTE | 2020-06-29 18:29 | General Progress Note ---
Subjective Allergies: Coded Allergies: No Known Allergies (Verified , 01/23/09) Subjective eating OK d/w patient re plan of care H&H without significant improvement Objective Last 24 Hour Vital Signs Date Time Temp Pulse Resp B/P (MAP) Pulse Ox O2 Delivery O2 Flow Rate FiO2 06/29/20 16:00 97.7 59 20 111/56 (74) 99 06/29/20 16:00 63 06/29/20 12:00 97.5 61 20 119/57 (77) 98 06/29/20 12:00 60 06/29/20 09:00 Room Air 06/29/20 08:00 98.1 63 20 100/49 (66) 98 06/29/20 08:00 67 06/29/20 04:00 97.9 60 20 117/70 (86) 96 06/29/20 04:00 60 06/29/20 00:00 98.9 60 22 112/52 (72) 100 06/29/20 00:00 60 06/28/20 21:00 Room Air 06/28/20 20:00 97.9 60 20 100/51 (67) 97 06/28/20 20:00 60 Intake and Output 06/28/20 06/29/20 19:00 07:00 Intake Total 730 ml 360 ml Output Total 450 ml 400 ml Balance 280 ml -40 ml Intake Oral 730 ml 300 ml IV Total 60 ml Output Urine Total 450 ml 400 ml Laboratory Tests 06/29/20 07:30: White Blood Count 6.9, Red Blood Count 2.47L, Hemoglobin 5.8*L, Hematocrit 20.1L , Mean Corpuscular Volume 81, Mean Corpuscular Hemoglobin 23.6L, Mean Corpuscular Hemoglobin Concent 29.1L, Red Cell Distribution Width 21.9H, Platelet Count 145L, Mean Platelet Volume 8.2, Neutrophils (%) (Auto) , Lymphocytes (%) (Auto) , Monocytes (%) (Auto) , Eosinophils (%) (Auto) , Basophils (%) (Auto) , Differential Total Cells Counted 100, Neutrophils % (Manual) 71, Lymphocytes % (Manual) 21, Monocytes % (Manual) 8, Eosinophils % (Manual) 0, Basophils % (Manual) 0, Band Neutrophils 0, Nucleated Red Blood Cells 1, Platelet Estimate DecreasedL, Platelet Morphology Normal, Polychromasia 1+, Hypochromasia 2+, Anisocytosis 3+, Acanthocytes Occasional, Schistocytes 1+, Sodium Level 142, Potassium Level 3.7, Chloride Level 108H, Carbon Dioxide Level 25, Anion Gap 9, Blood Urea Nitrogen 42H, Creatinine 2.1H, Estimat Glomerular Filtration Rate 36.6, Glucose Level 101, Calcium Level 9.7 Height (Feet): 6 Height (Inches): 2.00 Weight (Pounds): 204 Objective NCAT supple CTA RRR abd mildly distended, mild diffuse TTP (+) edema Assessment/Plan Status: stable, progressing Assessment/Plan: Assessment - Iron deficiency anemia - Jehovas, declines transfusion - lower abdominal TTP, ? etiology - b/l edema and anasarca - anemia - azotemia - CHF - COPD - CHF Recommendations - Daily EPO - IV Iron - check CT abd/pelvis --> anasarca, diverticulosis - PPI - EGD/Colon once H&H improved Jacob Deleon MD Jun 29, 2020 18:29
--- NOTE | 2020-06-29 19:10 | NUR ---
NURSE HAND-OFF REPORT: Important Events on Shift: Patient refused eye drop Patient Status: Full code Diet: Cardiac Pending Orders: N/A Pending Results/Labs:morning labs Pending MD notification:N/A Latest Vital Signs: Temperature 97.7 , Pulse 63 , B/P 111 /56 , Respiratory Rate 20 , O2 SAT 99 , , O2 Flow Rate . Vital Sign Comment: stable EKG Rhythm: AV-Paced Rhythm change?: N MD Notified?: - MD Response: Latest Munroe Fall Score: 50 Fall Risk: High Risk Safety Measures: Call light Within Reach, Bed Alarm Zone 1, Side Rails Side Rails x2, Bed position Low and Locked. Fall Precautions: Yellow Socks Report given to Dylon/JENNIFER.
--- NOTE | 2020-06-29 19:15 | NUR ---
NURSE NOTES: Pt. received from JENNIFER Vasquez. Pt. AAOx3, forgetful at times, breathing even and unlabored on room air, no indications of respiratory distress, no active complaints of pain at this time. IV noted left ac 18g saline locked. Condom catheter intact, draining well. Bed low and locked, side rails x3 up, bed alarm active, and call light in reach.
[2020-06-29 20:00] VITALS: BP 119/56
[2020-06-29] MEDS: Dyna-Hex 2% Top Sol 2oz TOPIC SCH (20:15)
[2020-06-29] MEDS: Atorvastatin 20mg tab ORAL SCH (20:16)
[2020-06-29] MEDS: Iron Sucrose 100 MG in NS 55 ML IVPB SCH (20:17)
[2020-06-30] VITALS: BP 114/59
[2020-06-30] MEDS: Gentamicin 0.3% Opth Soln 5ml BOTH EYES SCH ×5 (00:26→12:50)
[2020-06-30 04:00] VITALS: BP 127/55
--- NOTE | 2020-06-30 06:57 | NUR ---
NURSE HAND-OFF REPORT: Important Events on Shift:[pt. refusing scheduled eyedrops MD Hallman aware, no acute overnight events] Patient Status: stable Diet: cardiac Pending Orders: na Pending Results/Labs:na Pending MD notification:na Latest Vital Signs: Temperature 97.7 , Pulse 62 , B/P 127 /55 , Respiratory Rate 20 , O2 SAT 93 , , O2 Flow Rate . Vital Sign Comment: stable EKG Rhythm: A-Paced Rhythm change?: N MD Notified?: - MD Response: Latest Munroe Fall Score: 50 Fall Risk: High Risk Safety Measures: Call light Within Reach, Bed Alarm Zone 1, Side Rails Side Rails x2, Bed position Low and Locked. Fall Precautions: Yellow Socks Report given to []. Addendum: 06/30/20 at 0725 by Dylon Mishra RN Hand off given to JENNIFER Rowley.
--- NOTE | 2020-06-30 07:54 | NUR ---
NURSE NOTES: Received patient from JENNIFER Osborne. Patient observed to be awake, alert, and oriented x3. Seen currently on room air, with HOB elevated currently consuming breakfast. Patient with IV site located on LAC g18. IV site dry, inplace, and patent. Bed placed on lowest and locked, call light placed within reach and will continue to monitor for any changes in patient's condition.
[2020-06-30 08:00] VITALS: BP 142/64
[2020-06-30] MEDS: Amiodarone 200mg tab ORAL SCH (08:50)
[2020-06-30] MEDS: Tamsulosin 0.4mg cap ORAL SCH (08:50)
--- NOTE | 2020-06-30 09:04 | NUR ---
CASE MANAGEMENT:REVIEW 06/30/20 SI: ANEMIA. CATHOLIC 96.8 67 18 142/64 99% ON RA LABS CURRENTLY PENDING IS; IV VENOFER QHS IV LASIX QD EPOETIN SQ QOD FLOMAX PO QD PROSCAR PO QD AMIODARONE PO QD PROTONIX PO QD LIPITOR PO QHS : TELEMETRY STATUS DCP: FROM HOME
[2020-06-30 09:06] LABS: HEMATOCRIT 21.6 % (42.0-52.0); MEAN CORPUSCULAR VOLUME 82 FL (80-99); PLATELET COUNT 147 K/UL (150-450); RED BLOOD COUNT 2.64 M/UL (4.70-6.10); WHITE BLOOD COUNT 7.7 K/UL (4.8-10.8)
[2020-06-30 09:12] LABS: HEMOGLOBIN 6.2 G/DL (14.2-18.0)
[2020-06-30 12:00] VITALS: BP 140/61
--- NOTE | 2020-06-30 13:59 | CDS Physician Query ---
Clarification is required for compliance, coding accuracy, and to reflect severity of illness for this patient Dear Dr. Sumit Hallman Date 06/30/2020 Senior Systems Architect/CDS Name: Ginny Ramos Clinical Documentation states: HNP - This is an 80-year-old male with complaints of severe anemia of unclear etiology, acute renal failure, congestive heart failure exacerbation. Treatment: IV lasix Please Clarify: Type [] Systolic [] Diastolic [x] Systolic & Diastolic (Combined) [] Other: Present on Admission: [x] Yes [] No [] Clinically Undetermined Physician signature Date Please also document in your Progress Notes and/or Discharge Summary and indicate if the condition was present on admission. MTDD
[2020-06-30 16:00] VITALS: BP 145/81
--- NOTE | 2020-06-30 17:04 | Cardiology Progress Note ---
Subjective DATE OF SERVICE: Jun 30, 2020 More interactive and close to baseline mentation. No CP. Denies SOB. Still with lower abdominal discomfort. Eyes draining at times; he was on topical abx just before admit. Objective Last 24 Hour Vital Signs Date Time Temp Pulse Resp B/P (MAP) Pulse Ox O2 Delivery O2 Flow Rate FiO2 06/30/20 16:00 96.6 61 20 145/81 (102) 96 06/30/20 16:00 62 06/30/20 12:00 98.7 60 20 140/61 (87) 98 06/30/20 12:00 60 06/30/20 09:00 Room Air 06/30/20 08:00 96.8 67 18 142/64 (90) 99 06/30/20 08:00 62 06/30/20 04:00 62 06/30/20 04:00 97.7 62 20 127/55 (79) 93 06/30/20 00:00 98.1 62 18 114/59 (77) 97 06/30/20 00:00 62 06/29/20 21:00 Room Air 06/29/20 20:00 97.7 62 20 119/56 (77) 96 06/29/20 20:00 62 HEENT: normal ENT inspection RHYTHM: Afib, other - demand Ventric pacing LUNGS: diminished breath sounds CARDIAC: normal rate, normal S1 and S2, irregularly irregular, systolic murmur - 1/6 apical systolic murmur ABDOMEN: normal bowel sounds EXTREMITIES: normal range of motion, +2 edema Laboratory Tests Test 06/30/20 08:53 White Blood Count 7.7 K/UL (4.8-10.8) Red Blood Count 2.64 M/UL (4.70-6.10) L Hemoglobin 6.2 G/DL (14.2-18.0) *L Hematocrit 21.6 % (42.0-52.0) L Mean Corpuscular Volume 82 FL (80-99) Mean Corpuscular Hemoglobin 23.5 PG (27.0-31.0) L Mean Corpuscular Hemoglobin Concent 28.6 G/DL (32.0-36.0) L Red Cell Distribution Width 22.0 % (11.6-14.8) H Platelet Count 147 K/UL (150-450) L Mean Platelet Volume 6.1 FL (6.5-10.1) L Neutrophils (%) (Auto) % (45.0-75.0) Lymphocytes (%) (Auto) % (20.0-45.0) Monocytes (%) (Auto) % (1.0-10.0) Eosinophils (%) (Auto) % (0.0-3.0) Basophils (%) (Auto) % (0.0-2.0) Differential Total Cells Counted 100 Neutrophils % (Manual) 67 % (45-75) Lymphocytes % (Manual) 22 % (20-45) Monocytes % (Manual) 6 % (1-10) Eosinophils % (Manual) 4 % (0-3) H Basophils % (Manual) 1 % (0-2) Band Neutrophils 0 % (0-8) Platelet Estimate Decreased L Platelet Morphology Normal Polychromasia 1+ Hypochromasia 2+ Anisocytosis 3+ Acanthocytes Occasional Schistocytes 1+ Reticulocyte Count 4.2 % (0.5-2.0) H Assessment/Plan Assessment/Plan Severe anemia GI bleed Jehovahs witness Ac/chr diastolic CHF PAFib Pacemaker Hx thoracic aorta repair Elev LFT's may be due to passive congestion COPD Conjunctivitis Abd pain Ac/chr renal failure - improved Diuresis O2 suppl IV iron and sq EPO Titrate anti-failure rx No aspirin or anticoag rx; off NSAID's Topical abx Defer endoscopy Yvan Encarnacion MD Jun 30, 2020 17:04
--- NOTE | 2020-06-30 17:04 | Cardiology Progress Note ---
Subjective DATE OF SERVICE: Jun 26, 2020 Late entry No CP or SOB at rest. Confirms that he would not consent to any transfusions, even if life threatening anemia. Agrees to IV iron and epogen. Objective Last 24 Hour Vital Signs reviewed HEENT: normal ENT inspection RHYTHM: Afib, other - demand Ventric pacing LUNGS: diminished breath sounds CARDIAC: normal rate, normal S1 and S2, irregularly irregular, systolic murmur - 1/6 apical systolic murmur ABDOMEN: normal bowel sounds EXTREMITIES: normal range of motion, +3 edema Laboratory Tests Assessment/Plan Assessment/Plan Anemia with iron deficiency, likely due to slow GI bleeding Hypertensive cardiomyopathy PAFib with recurrence due to severe anemia associated cardiac compromise Ac/chr diastolic CHF Pacemaker Hx of thoracic abd aorta repair COPD Defer Endoscopy until cardiovascular parameters and hemoglobin levels have improved. Plan of care updated in discussion with Dr Hallman. Yvan Encarnacion MD Jun 30, 2020 17:04
--- NOTE | 2020-06-30 17:14 | NUR ---
NURSE NOTES:WOUND CARE NOTES:Pt presented on admission with multiple Pressure Injuries: Resolving Sacral Pressure(L)2.5cm x (W)0.5cm. Base of wound is moist and mihai with surrounding darker skin tone without induration or fluctuance. Multiple Wounds base of Scrotum:(#1) Full Thickness Pressure Injury base of Scrotum(L)2.8cm x (W)1.4cm x(D)0.3cm. Base of wound is75% mihai ,25% slough .Borders are macerated. Small amt sanguineous exudate noted. (#2) To the R side of base of scrotal wound but in close proximity is a Partial thickness wound (L)2cm x (W)2.5cm. Base of wound is moist ,mihai with macerated borders. No exudate noted. (#3)Third smaller partial thickness wound noted Proximally to first wound (L)1.1cm x (W)1cm.Base of wound is moist and viable. DTPI Lateral L Heel (L)2.2cm x (W)4.5cm. Base of wound is maroon, fluctuant , and tender when minimally palpated . Marginal erythema along borders. Surrounding heel is dry, callused with Xerotic skin heel and plantar L foot. DTPI R Heel and medial aspect of heel(L)3.5cm x (W)5cm. Base of Pressure Injury is maroon,fluctuant and tender when minimally palpated. Tx.Plan: Clean wound base of Scrotum with saline. Apply TheraHoney. Apply Moisture Barrier Paste to surrounding scrotum. Cover with Optifoam drsg Daily and prn Apply Moisture Barrier Paste to Sacrum. Cover with Optifoam drsg. Change every 3 days and prn. Apply Cavilon Skin Barrier to Both Heels. Cover each heel with Optifoam drsg. Change every 7 days and prn. Reposition at least every 2hours or as tolerated. Off-load heels with Pillow.
--- NOTE | 2020-06-30 19:20 | NUR ---
NURSE NOTES: Receive a report from JENNIFER Rowley. Round is made. Pt is awake and alert. No acute distress noted. On bed bound. Done sore dressing previous shift and intact. Noted site pain tolerating. No dizziness noted. Elevated bilateral L/E with pillow. On Rt AC 18 H/L. Call light within reach. Will continue to monitor.
--- NOTE | 2020-06-30 19:25 | NUR ---
NURSE HAND-OFF REPORT: Important Events on Shift:WOUND CARE, HGB LVL MONITORING Patient Status: STABLE Diet:CARDIAC Pending Orders: N/A Pending Results/Labs:N/A Pending MD notification:N/A Latest Vital Signs: Temperature 96.6 , Pulse 62 , B/P 145 /81 , Respiratory Rate 20 , O2 SAT 96 , , O2 Flow Rate . Vital Sign Comment: STABLE EKG Rhythm: A-Paced Rhythm change?: N MD Notified?: - MD Response: Latest Munroe Fall Score: 50 Fall Risk: High Risk Safety Measures: Call light Within Reach, Bed Alarm Zone 1, Side Rails Side Rails x2, Bed position Low and Locked. Fall Precautions: Yellow Socks Report given to JENNIFER Begum.
--- NOTE | 2020-06-30 19:34 | General Progress Note ---
Subjective ROS Limited/Unobtainable: No Constitutional: Reports: malaise, weakness HEENT: Reports: no symptoms Cardiovascular: Reports: edema Respiratory: Reports: cough, shortness of breath Gastrointestinal/Abdominal: Reports: no symptoms Genitourinary: Reports: no symptoms Neurologic/Psychiatric: Reports: pre-existing deficit Endocrine: Reports: no symptoms Hematologic/Lymphatic: Reports: anemia Allergies: Coded Allergies: No Known Allergies (Verified , 01/23/09) All Systems: reviewed and negative except above Subjective no complaints. less confused. more alert. decreased edema. no fevers or chills. h/h trending up. on iv lasix and iv abx. Objective Last 24 Hour Vital Signs Date Time Temp Pulse Resp B/P (MAP) Pulse Ox O2 Delivery O2 Flow Rate FiO2 06/30/20 16:00 96.6 61 20 145/81 (102) 96 06/30/20 16:00 62 06/30/20 12:00 98.7 60 20 140/61 (87) 98 06/30/20 12:00 60 06/30/20 09:00 Room Air 06/30/20 08:00 96.8 67 18 142/64 (90) 99 06/30/20 08:00 62 06/30/20 04:00 62 06/30/20 04:00 97.7 62 20 127/55 (79) 93 06/30/20 00:00 98.1 62 18 114/59 (77) 97 06/30/20 00:00 62 06/29/20 21:00 Room Air 06/29/20 20:00 97.7 62 20 119/56 (77) 96 06/29/20 20:00 62 Intake and Output 06/29/20 06/30/20 19:00 07:00 Intake Total 630 ml 460 ml Output Total 850 ml 600 ml Balance -220 ml -140 ml Intake Oral 630 ml 400 ml IV Total 60 ml Output Urine Total 850 ml 600 ml # Bowel Movements 2 Laboratory Tests 06/30/20 08:53: White Blood Count 7.7, Red Blood Count 2.64L, Hemoglobin 6.2*L, Hematocrit 21.6L , Mean Corpuscular Volume 82, Mean Corpuscular Hemoglobin 23.5L, Mean Corpuscular Hemoglobin Concent 28.6L, Red Cell Distribution Width 22.0H, Platelet Count 147L, Mean Platelet Volume 6.1L, Neutrophils (%) (Auto) , Lymphocytes (%) (Auto) , Monocytes (%) (Auto) , Eosinophils (%) (Auto) , Basophils (%) (Auto) , Differential Total Cells Counted 100, Neutrophils % (Manual) 67, Lymphocytes % (Manual) 22, Monocytes % (Manual) 6, Eosinophils % (Manual) 4H, Basophils % (Manual) 1, Band Neutrophils 0, Platelet Estimate DecreasedL, Platelet Morphology Normal, Polychromasia 1+, Hypochromasia 2+, Anisocytosis 3+, Acanthocytes Occasional, Schistocytes 1+, Reticulocyte Count 4.2H Height (Feet): 6 Height (Inches): 2.00 Weight (Pounds): 204 Objective General Appearance: WD/WN, alert, confused EENT: normal ENT inspection Neck: normal alignment, supple Cardiovascular: normal rate, regular rhythm Respiratory/Chest: chest wall non-tender, lungs clear, normal breath sounds, no respiratory distress, no accessory muscle use Abdomen: normal bowel sounds, non tender, soft, no organomegaly Edema: 3+ Pedal (L), 3+ Pedal (R) Edema: severe edema Neurologic: continuous towel roller II-XII 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, alert, responsive Skin: normal pigmentation, warm/dry Assessment/Plan Problem List: (1) Acute exacerbation of CHF (congestive heart failure) (2) Swelling of lower extremity ICD Codes: M79.89 - Other specified soft tissue disorders SNOMED: 942634556, 349072257 (3) Orthopnea (4) CHF (congestive heart failure) ICD Codes: I50.9 - CHF (congestive heart failure) SNOMED: 30227475 (5) Atrial fibrillation ICD Codes: I48.91 - Atrial fibrillation SNOMED: 54494523 (6) Anemia ICD Codes: D64.9 - Anemia, unspecified SNOMED: 065578972 (7) Elevated troponin ICD Codes: R74.8 - Elevated troponin SNOMED: 212399329 Status: stable, progressing Assessment/Plan: Continue IV diuresis Elevate legs Monitor renal function and lites with diuresis Continue Epogen and iron supplements refusing transfusion- pt jehovahs witness pansensitive ecoli in urine - on iv abx Monitor for bleeding IV proton pump inhibitors Endoscopy next week when more stable follow up labs Sumit Hallman MD Jun 30, 2020 19:34
[2020-06-30 20:00] VITALS: BP 110/51
[2020-06-30] MEDS: Dyna-Hex 2% Top Sol 2oz TOPIC SCH (20:00)
--- NOTE | 2020-06-30 21:02 | General Progress Note ---
Subjective Allergies: Coded Allergies: No Known Allergies (Verified , 01/23/09) Subjective eating OK d/w patient re plan of care Hg higher, now 6.2 Objective Last 24 Hour Vital Signs Date Time Temp Pulse Resp B/P (MAP) Pulse Ox O2 Delivery O2 Flow Rate FiO2 06/30/20 16:00 96.6 61 20 145/81 (102) 96 06/30/20 16:00 62 06/30/20 12:00 98.7 60 20 140/61 (87) 98 06/30/20 12:00 60 06/30/20 09:00 Room Air 06/30/20 08:00 96.8 67 18 142/64 (90) 99 06/30/20 08:00 62 06/30/20 04:00 62 06/30/20 04:00 97.7 62 20 127/55 (79) 93 06/30/20 00:00 98.1 62 18 114/59 (77) 97 06/30/20 00:00 62 Intake and Output 06/29/20 06/30/20 19:00 07:00 Intake Total 630 ml 460 ml Output Total 850 ml 600 ml Balance -220 ml -140 ml Intake Oral 630 ml 400 ml IV Total 60 ml Output Urine Total 850 ml 600 ml # Bowel Movements 2 Laboratory Tests 06/30/20 08:53: White Blood Count 7.7, Red Blood Count 2.64L, Hemoglobin 6.2*L, Hematocrit 21.6L , Mean Corpuscular Volume 82, Mean Corpuscular Hemoglobin 23.5L, Mean Corpuscular Hemoglobin Concent 28.6L, Red Cell Distribution Width 22.0H, Platelet Count 147L, Mean Platelet Volume 6.1L, Neutrophils (%) (Auto) , Lymphocytes (%) (Auto) , Monocytes (%) (Auto) , Eosinophils (%) (Auto) , Basophils (%) (Auto) , Differential Total Cells Counted 100, Neutrophils % (Manual) 67, Lymphocytes % (Manual) 22, Monocytes % (Manual) 6, Eosinophils % (Manual) 4H, Basophils % (Manual) 1, Band Neutrophils 0, Platelet Estimate DecreasedL, Platelet Morphology Normal, Polychromasia 1+, Hypochromasia 2+, Anisocytosis 3+, Acanthocytes Occasional, Schistocytes 1+, Reticulocyte Count 4.2H Height (Feet): 6 Height (Inches): 2.00 Weight (Pounds): 204 Objective NCAT supple CTA RRR abd mildly distended, mild diffuse TTP (+) edema Assessment/Plan Status: stable, progressing Assessment/Plan: Assessment - Iron deficiency anemia - Jehovas, declines transfusion - lower abdominal TTP, ? etiology - b/l edema and anasarca - anemia - azotemia - CHF - COPD - CHF Recommendations - Daily EPO - IV Iron - check CT abd/pelvis --> anasarca, diverticulosis - PPI - EGD/Colon once H&H improved, possibly end of this week Jacob Deleon MD Jun 30, 2020 21:02
[2020-06-30] MEDS: Epoetin Alfa-EPBX (NON ESRD)10,000 unit/ml vial SUBQ SCH (21:18)
[2020-06-30] MEDS: Iron Sucrose 100 MG in NS 55 ML IVPB SCH (21:18)
[2020-06-30] MEDS: Atorvastatin 20mg tab ORAL SCH (21:18)
[2020-07-01] VITALS: BP 123/59
--- NOTE | 2020-07-01 | NUR ---
NURSE NOTES: No acute distress noted. Breathing is even and non labored. No SOB/ wheezing noted. Incontinent B/B. Kept dry and clean. Change dressing on sacrum with opticform. Will continue to monitor.
--- NOTE | 2020-07-01 02:14 | Consultation ---
DATE OF CONSULTATION: 06/30/2020 CARDIOLOGY CONSULTATION CONSULTING PHYSICIAN: Yvan Encarnacion MD REQUESTING PHYSICIAN: Sumit Hallman MD REASON FOR CONSULTATION: Congestive heart failure. HISTORY OF PRESENT ILLNESS: This 84-year-old male with hypertensive cardiomyopathy, paroxysmal atrial fibrillation and permanent pacemaker, who is also status post repair of thoracic aortic aneurysm several years ago, was seen in my office for follow up yesterday. He complained of increasing leg swelling, weakness and shortness of breath and his noted him to have increasing episodes of confusion and somnolence over the past few days. Routine laboratory studies were obtained in my office and concern was raised over a hemoglobin level of around 6 grams, previously his hemoglobin had been in the range of 9. The patient also had new changes in his kidney function studies and was referred to the hospital for further care upon discussion with his primary care physician. The patient could not be scheduled for a packed red blood cell transfusion as he is a Rastafari and declines any blood products under any circumstance. The patient has not had any chest pain. He has had prior cardiac catheterizations, which revealed the absence of flow-limiting coronary disease. PAST MEDICAL HISTORY: Hypertensive heart disease, diastolic congestive heart failure, paroxysmal atrial fibrillation, permanent pacemaker, cerebrovascular disease, history of thoracic aortic aneurysm repair, degenerative disc disease, osteoarthritis, hyperlipidemia, prostatic hypertrophy, peripheral neuropathy, vitamin D deficiency, and COPD. ALLERGIES: None known. MEDICATIONS: Reviewed and reconciled. FAMILY HISTORY: Noncontributory. SOCIAL HISTORY: Negative for smoking, alcohol or substance abuse. REVIEW OF SYSTEMS: Recent echocardiogram with normal ejection fraction, right concentric hypertrophy, mild pulmonary hypertension, moderate tricuspid regurgitation, mild aortic and mitral regurgitation. Pacemaker was interrogated in the last 3 months and noted to be functioning appropriately with adequate battery life. There is no history of flow-limiting coronary disease. He has been on amiodarone for atrial fibrillation and has maintained sinus rhythm in the past. He is on anti-platelet therapy, but has been off anticoagulants for some time. There is no history of diabetes or thyroid disorder. His cholesterol parameters revealed an LDL less than 70. He has not had any known COVID-19 exposures. He does use inhalers for his COPD and has not required steroids for a number of years. PHYSICAL EXAMINATION: VITAL SIGNS: Blood pressure 111/55, heart rate 59, respirations 14, and afebrile. HEENT: Temporal wasting. Arcus senilis. Anicteric sclerae. Oropharynx clear. NECK: Supple. Jugular venous pressure normal. LUNGS: Few rhonchi. CARDIAC: Irregularly irregular rhythm. Normal S1, paradoxically split S2. A 1/6 systolic murmur, apex. ABDOMEN: Soft, nontender. Mild hepatomegaly. EXTREMITIES: 3+ pitting edema. Gait is impaired. NEUROLOGIC: Reveals some delay in response time, which is different from his prior baseline several weeks earlier. LABORATORY DATA: Notable for hemoglobin 5.8. BUN 62, creatinine 2.7 and total bilirubin 1.9. IMPRESSION: 1. Acute on chronic diastolic congestive heart failure. 2. Severe anemia, iron deficiency. 3. Acute on chronic renal failure. 4. Paroxysmal atrial fibrillation, Rastafari status. PLAN: 1. Iron, intravenously. 2. Proton pump inhibitor. 3. Stool occult blood testing. 4. Cautious diuresis. 5. Hold aspirin. 6. High-dose Epogen therapy. 7. Less actively bleeding, would defer any endoscopic intervention at this time. Yvan Encarnacion M.D. DR: VERONIQUE JOB#: [id number] CC:
[2020-07-01 04:00] VITALS: BP 120/52
--- NOTE | 2020-07-01 06:24 | NUR ---
NURSE HAND-OFF REPORT: Important Events on Shift: No distress noted. Afebrile. Noted forgetfulness-asking where he is. Given orientation. Patient Status: [stable] Diet: [cardiac diet] Pending Orders: [] Pending Results/Labs:[] Pending MD notification:[] Latest Vital Signs: Temperature 98.2 , Pulse 61 , B/P 120 /52 , Respiratory Rate 20 , O2 SAT 100 , , O2 Flow Rate . Vital Sign Comment: [] EKG Rhythm: A-Paced Rhythm change?: N MD Notified?: - MD Response: Latest Munroe Fall Score: 50 Fall Risk: High Risk Safety Measures: Call light Within Reach, Bed Alarm Zone 1, Side Rails Side Rails x2, Bed position Low and Locked. Fall Precautions: Yellow Socks
--- NOTE | 2020-07-01 07:26 | NUR ---
NURSE NOTES: Given report to JENNIFER Greenberg. Round is made.
[2020-07-01 07:34] LABS: CALCIUM 10.1 MG/DL (8.5-10.1); CREATININE 1.7 MG/DL (0.55-1.30); POTASSIUM 3.5 MMOL/L (3.5-5.1)
[2020-07-01 08:00] VITALS: BP 123/62
--- NOTE | 2020-07-01 08:07 | NUR ---
NURSE NOTES: Received patient report from JENNIFER Begum. Patient is AO x2 awake and able to make needs known. Patient shows no signs of distress or pain at the time. Patient is on room air and shows no signs of respiratory distress at the time. IV is patent and flushed. There are no signs of erythema, infiltration, or bleeding. Bed is in the lowest position, call light is within reach, side rails up x3. Will continue to monitor.
[2020-07-01] MEDS: Amiodarone 200mg tab ORAL SCH (09:04)
[2020-07-01] MEDS: Gentamicin 0.3% Opth Soln 5ml BOTH EYES SCH ×2 (09:04→17:44)
[2020-07-01] MEDS: Tamsulosin 0.4mg cap ORAL SCH (09:05)
[2020-07-01 12:00] VITALS: BP 110/55
--- NOTE | 2020-07-01 13:16 | NUR ---
RD ASSESSMENT & RECOMMENDATIONS SEE CARE ACTIVITY FOR COMPLETE ASSESSMENT DAILY ESTIMATED NEEDS: Needs based on Cardiac, wound 88kg abw 25-35 kcals/kg 7748-7526 total kcals 1.25-1.5 g protein/kg 110-132 g total protein Fluid per MD, on lasix NUTRITION DIAGNOSIS: Increased kcal and pro needs r/t wound healing as evidenced by w/ full thickness scrotal wound, refer to full wound care eval. CURRENT DIET:cardiac PO DIET RECOMMENDATIONS: Liberalized Regular diet/ texture as tolerated w/ variable po intake ADDITIONAL RECOMMENDATIONS: 1)CALIBRATED BED SCALE wt 2) On lasix, monitor lytes daily 3) 1:1 feeds 4) Texture per DUCT MAKER 5) Add ENSURE ENLIVE BID BID in b/w meal s 6) WOUND CARE: Add VIT C 500mg BID + MVI w/ min x1 daily + KELLEY BID
[2020-07-01 16:00] VITALS: BP 100/57
--- NOTE | 2020-07-01 19:15 | NUR ---
NURSE HAND-OFF REPORT: Important Events on Shift:[Patient placed on 2L nasal canula per Dr. Encarnacion. Hgb improving but still 6.2] Patient Status: [Full code] Diet: [Cardiac Diet] Pending Orders: [] Pending Results/Labs:[] Pending MD notification:[] Latest Vital Signs: Temperature 97.9 , Pulse 61 , B/P 100 /57 , Respiratory Rate 20 , O2 SAT 99 , , O2 Flow Rate . Vital Sign Comment: [] EKG Rhythm: A-Paced Rhythm change?: N MD Notified?: - MD Response: Latest Munroe Fall Score: 50 Fall Risk: High Risk Safety Measures: Call light Within Reach, Bed Alarm Zone 1, Side Rails Side Rails x2, Bed position Low and Locked. Fall Precautions: Yellow Socks Report given to [JENNIFER Finnegan].
--- NOTE | 2020-07-01 19:20 | NUR ---
NURSE NOTES: Report received from JENNIFER Greenberg. Patient is awake on bed, alert and oriented x 2. property assessment monitor is in place, shows Sinus rhythm/A-paced and no chest pain reported. On cardiac diet, instructed and amenable. Patient is bedbound. IV site is on left AC g-18 saline locked that is patent and intact. Safety measures are in place, bed in lowest and locked position, side rails up x 2, call light button and bedside table within reach, instructed to call for any assistance needed. Will continue plan of care.
[2020-07-01 20:00] VITALS: BP 110/58
[2020-07-01] MEDS: Dyna-Hex 2% Top Sol 2oz TOPIC SCH (20:23)
[2020-07-01] MEDS: Atorvastatin 20mg tab ORAL SCH (20:23)
--- NOTE | 2020-07-01 20:37 | General Progress Note ---
Subjective Allergies: Coded Allergies: No Known Allergies (Verified , 01/23/09) Subjective eating OK d/w patient re plan of care retic count now high Objective Last 24 Hour Vital Signs Date Time Temp Pulse Resp B/P (MAP) Pulse Ox O2 Delivery O2 Flow Rate FiO2 07/01/20 18:13 97.9 07/01/20 16:00 61 07/01/20 16:00 97.9 69 20 100/57 (71) 99 07/01/20 12:00 67 07/01/20 12:00 97.8 66 18 110/55 (73) 97 07/01/20 09:35 98.1 07/01/20 09:00 Room Air 07/01/20 08:00 98.1 66 20 123/62 (82) 98 07/01/20 08:00 66 07/01/20 04:00 98.2 63 20 120/52 (74) 100 07/01/20 04:00 61 07/01/20 00:00 98.0 63 20 123/59 (80) 97 07/01/20 00:00 63 06/30/20 21:00 Room Air Intake and Output 06/30/20 07/01/20 19:00 07:00 Intake Total 700 ml Output Total 1000 ml 400 ml Balance -300 ml -400 ml Intake Oral 700 ml Output Urine Total 1000 ml 400 ml # Voids 1 # Bowel Movements 1 1 Laboratory Tests 07/01/20 06:47: Sodium Level 144, Potassium Level 3.5, Chloride Level 110H, Carbon Dioxide Level 27, Anion Gap 7, Blood Urea Nitrogen 28H, Creatinine 1.7H, Estimat Glomerular Filtration Rate 46.8, Glucose Level 84, Calcium Level 10.1, Magnesium Level 1.9 Height (Feet): 6 Height (Inches): 2.00 Weight (Pounds): 204 Objective NCAT supple CTA RRR abd mildly distended, mild diffuse TTP (+) edema Assessment/Plan Status: stable, progressing Assessment/Plan: Assessment - Iron deficiency anemia - Jehovas, declines transfusion - lower abdominal TTP, ? etiology - b/l edema and anasarca - anemia - azotemia - CHF - COPD - CHF Recommendations - Daily EPO - IV Iron - check CT abd/pelvis --> anasarca, diverticulosis - PPI - EGD/Colon once H&H improved, possibly end of this week - re check CBC in am Jacob Deleon MD Jul 01, 2020 20:37
[2020-07-02] VITALS (7 sets, daily range): BP systolic 113–123; BP diastolic 53–62
--- NOTE | 2020-07-02 02:08 | Cardiology Progress Note ---
Subjective DATE OF SERVICE: Jul 01, 2020 More interactive and closer to baseline mentation; still with slow response time. No CP. Denies SOB. Less lower abdominal discomfort. Appetite poor Objective Last 24 Hour Vital Signs Date Time Temp Pulse Resp B/P (MAP) Pulse Ox O2 Delivery O2 Flow Rate FiO2 07/02/20 00:00 61 07/01/20 21:00 Room Air 07/01/20 20:00 60 07/01/20 20:00 98.9 60 18 110/58 (75) 100 07/01/20 18:13 97.9 07/01/20 16:00 61 07/01/20 16:00 97.9 69 20 100/57 (71) 99 07/01/20 12:00 67 07/01/20 12:00 97.8 66 18 110/55 (73) 97 07/01/20 09:35 98.1 07/01/20 09:00 Room Air 07/01/20 08:00 98.1 66 20 123/62 (82) 98 07/01/20 08:00 66 07/01/20 04:00 98.2 63 20 120/52 (74) 100 07/01/20 04:00 61 HEENT: normal ENT inspection RHYTHM: Afib, other - demand Ventric pacing LUNGS: diminished breath sounds CARDIAC: normal rate, normal S1 and S2, irregularly irregular, systolic murmur - 1/6 apical systolic murmur ABDOMEN: normal bowel sounds EXTREMITIES: normal range of motion, +3 edema Laboratory Tests Test 07/01/20 06:47 Sodium Level 144 MMOL/L (136-145) Potassium Level 3.5 MMOL/L (3.5-5.1) Chloride Level 110 MMOL/L (98-107) H Carbon Dioxide Level 27 MMOL/L (21-32) Anion Gap 7 mmol/L (5-15) Blood Urea Nitrogen 28 mg/dL (7-18) H Creatinine 1.7 MG/DL (0.55-1.30) H Estimat Glomerular Filtration Rate 46.8 mL/min (>60) Glucose Level 84 MG/DL (74-106) Calcium Level 10.1 MG/DL (8.5-10.1) Magnesium Level 1.9 MG/DL (1.8-2.4) Assessment/Plan Assessment/Plan Severe anemia GI bleed Jehovahs witness Ac/chr diastolic CHF PAFib Pacemaker Hx thoracic aorta repair Elev LFT's may be due to passive congestion COPD Conjunctivitis Abd pain Ac/chr renal failure - improved Diuresis O2 suppl IV iron and sq EPO Titrate anti-failure rx No aspirin or anticoag rx; off NSAID's Topical abx Defer endoscopy Yvan Encarnacion MD Jul 02, 2020 02:08
--- NOTE | 2020-07-02 07:20 | NUR ---
NURSE NOTES: Received report from Stefanie/RN, Observed patient awake, eating breakfast in bed, on 2L nasal canula, no acute distress/SOB noted. Able to make needs known, Denies pain at this time. IV on left AC, patent and intact. Bed in low position and locked, Call light within reach. Encouraged to use call light when needed. Will continue plan of care.
--- NOTE | 2020-07-02 07:30 | NUR ---
NURSE HAND-OFF REPORT: Important Events on Shift: Patient has been resting well the whole shift Patient Status: Patient is awake on bed in stable condition. Plan of care endorsed. Diet: Cardiac diet Pending Orders: none Pending Results/Labs:AM lab result Pending MD notification:none Latest Vital Signs: Temperature 97.9 , Pulse 62 , B/P 113 /53 , Respiratory Rate 18 , O2 SAT 99 , , O2 Flow Rate . Vital Sign Comment: stable EKG Rhythm: A-Paced Rhythm change?: N MD Notified?: - MD Response: Latest Munroe Fall Score: 50 Fall Risk: High Risk Safety Measures: Call light Within Reach, Bed Alarm Zone 1, Side Rails Side Rails x2, Bed position Low and Locked. Fall Precautions: Yellow Socks Report given to JENNIFER Lin.
[2020-07-02] MEDS: Amiodarone 200mg tab ORAL SCH (08:46)
[2020-07-02] MEDS: Spironolactone 25mg tab ORAL SCH (08:46)
[2020-07-02] MEDS: Tamsulosin 0.4mg cap ORAL SCH (08:46)
[2020-07-02] MEDS: Gentamicin 0.3% Opth Soln 5ml BOTH EYES SCH ×2 (08:47→18:00)
[2020-07-02 09:28] LABS: HEMATOCRIT 22.5 % (42.0-52.0); MEAN CORPUSCULAR VOLUME 85 FL (80-99); PLATELET COUNT 196 K/UL (150-450); RED BLOOD COUNT 2.63 M/UL (4.70-6.10); RED CELL DISTRIBUTION WIDTH 28.2 % (11.6-14.8)
[2020-07-02 09:36] LABS: HEMOGLOBIN 6.6 G/DL (14.2-18.0)
[2020-07-02] MEDS ORDERED: Sorbitol Solution UD 30ml ORAL SCH (10:45)
--- NOTE | 2020-07-02 13:37 | NUR ---
CASE MANAGEMENT:REVIEW 07/02/20 SI: ANEMIA. JEWISH 97.6 60 20 116/57 100% ON RA H/H-6.6/.5 IS; IV VENOFER QHS IV LASIX QD EPOETIN SQ QOD FLOMAX PO QD PROSCAR PO QD AMIODARONE PO QD PROTONIX PO QD LIPITOR PO QHS : TELEMETRY STATUS DCP: FROM HOME H/H 06/25/20 ~ 5.8/20.1 06/27/20 ~ 5.6/19.2 06/29/20 ~ 5.8/20.1 06/30/20 ~ 6.2/21.6 07/02/20 ~ 6.6/.5
--- NOTE | 2020-07-02 19:25 | NUR ---
NURSE HAND-OFF REPORT: Important Events on Shift:N/A Patient Status: full code Diet: Clear liquid Pending Orders: N/A Pending Results/Labs:N/A Pending MD notification:N/A Latest Vital Signs: Temperature 97.3 , Pulse 60 , B/P 119 /62 , Respiratory Rate 18 , O2 SAT 100 , , O2 Flow Rate . Vital Sign Comment: Stable EKG Rhythm: A-Paced Rhythm change?: N MD Notified?: - MD Response: Latest Munroe Fall Score: 50 Fall Risk: High Risk Safety Measures: Call light Within Reach, Bed Alarm Zone 1, Side Rails Side Rails x2, Bed position Low and Locked. Fall Precautions: Yellow Socks Report given to Florecita/JENNIFER.
--- NOTE | 2020-07-02 19:45 | NUR ---
NURSE NOTES: Patient in bed, resting at this time. On 2L O2 via nasal canula, with no signs of distress or SOB. IV intact and patent. floral decorator in place. Bed locked and in lowest position. Call light within easy reach. Will continue plan of care.
[2020-07-02] MEDS: Dyna-Hex 2% Top Sol 2oz TOPIC SCH (20:11)
[2020-07-02] MEDS: Atorvastatin 20mg tab ORAL SCH (20:11)
[2020-07-02] MEDS: Epoetin Alfa-EPBX (NON ESRD)10,000 unit/ml vial SUBQ SCH (20:12)
--- NOTE | 2020-07-02 23:38 | General Progress Note ---
Subjective Allergies: Coded Allergies: No Known Allergies (Verified , 01/23/09) Subjective eating OK no new complaints H&H slowly rising Objective Last 24 Hour Vital Signs Date Time Temp Pulse Resp B/P (MAP) Pulse Ox O2 Delivery O2 Flow Rate FiO2 07/02/20 21:00 Room Air 07/02/20 20:00 98.4 60 18 123/56 (78) 100 07/02/20 20:00 60 07/02/20 16:00 60 07/02/20 16:00 97.3 60 18 119/62 (81) 100 07/02/20 12:00 60 07/02/20 12:00 97.6 60 20 116/57 (76) 100 07/02/20 09:00 Room Air 07/02/20 09:00 97.6 60 20 116/57 (76) 100 07/02/20 08:00 97.3 67 18 120/59 (79) 100 07/02/20 08:00 65 07/02/20 04:00 97.9 62 18 113/53 (73) 99 07/02/20 04:00 60 07/02/20 00:00 61 07/02/20 00:00 98.6 61 18 117/59 (78) 99 Intake and Output 07/01/20 07/02/20 19:00 07:00 Intake Total 360 ml 300 ml Output Total 700 ml 750 ml Balance -340 ml -450 ml Intake Oral 360 ml 300 ml Output Urine Total 700 ml 750 ml Laboratory Tests 07/02/20 09:10: White Blood Count 8.0, Red Blood Count 2.63L, Hemoglobin 6.6*L, Hematocrit 22.5L , Mean Corpuscular Volume 85, Mean Corpuscular Hemoglobin 25.0L, Mean Corpuscular Hemoglobin Concent 29.3L, Red Cell Distribution Width 28.2H, Platelet Count 196, Mean Platelet Volume 9.2, Neutrophils (%) (Auto) , Lymphocytes (%) (Auto) , Monocytes (%) (Auto) , Eosinophils (%) (Auto) , Basophils (%) (Auto) , Differential Total Cells Counted 100, Neutrophils % (Manual) 66, Lymphocytes % (Manual) 22, Monocytes % (Manual) 7, Eosinophils % (Manual) 5H, Basophils % (Manual) 0, Band Neutrophils 0, Platelet Estimate Adequate, Platelet Morphology Normal, Hypochromasia 2+, Anisocytosis 2+, [place] Cells 1+, Schistocytes 1+ Height (Feet): 6 Height (Inches): 2.00 Weight (Pounds): 204 Objective NCAT supple CTA RRR abd mildly distended, mild diffuse TTP (+) edema Assessment/Plan Status: stable, progressing Assessment/Plan: Assessment - Iron deficiency anemia - Jehovas, declines transfusion - lower abdominal TTP, ? etiology - b/l edema and anasarca - anemia - azotemia - CHF - COPD - CHF Recommendations - Daily EPO - IV Iron - check CT abd/pelvis --> anasarca, diverticulosis - PPI - EGD/Colon once H&H improved, Jacob Deleon MD Jul 02, 2020 23:38
--- NOTE | 2020-07-02 23:54 | Cardiology Progress Note ---
Subjective DATE OF SERVICE: Jul 02, 2020 No change in status No CP. Denies SOB. Less lower abdominal discomfort. Appetite fair. Hemoglobin up to 6.6. Objective Last 24 Hour Vital Signs Date Time Temp Pulse Resp B/P (MAP) Pulse Ox O2 Delivery O2 Flow Rate FiO2 07/02/20 21:00 Room Air 07/02/20 20:00 98.4 60 18 123/56 (78) 100 07/02/20 20:00 60 07/02/20 16:00 60 07/02/20 16:00 97.3 60 18 119/62 (81) 100 07/02/20 12:00 60 07/02/20 12:00 97.6 60 20 116/57 (76) 100 07/02/20 09:00 Room Air 07/02/20 09:00 97.6 60 20 116/57 (76) 100 07/02/20 08:00 97.3 67 18 120/59 (79) 100 07/02/20 08:00 65 07/02/20 04:00 97.9 62 18 113/53 (73) 99 07/02/20 04:00 60 07/02/20 00:00 61 07/02/20 00:00 98.6 61 18 117/59 (78) 99 HEENT: normal ENT inspection RHYTHM: Afib, other - demand Ventric pacing LUNGS: diminished breath sounds CARDIAC: normal rate, normal S1 and S2, irregularly irregular, systolic murmur - 1/6 apical systolic murmur ABDOMEN: normal bowel sounds EXTREMITIES: normal range of motion, +3 edema Laboratory Tests Test 07/02/20 09:10 White Blood Count 8.0 K/UL (4.8-10.8) Red Blood Count 2.63 M/UL (4.70-6.10) L Hemoglobin 6.6 G/DL (14.2-18.0) *L Hematocrit 22.5 % (42.0-52.0) L Mean Corpuscular Volume 85 FL (80-99) Mean Corpuscular Hemoglobin 25.0 PG (27.0-31.0) L Mean Corpuscular Hemoglobin Concent 29.3 G/DL (32.0-36.0) L Red Cell Distribution Width 28.2 % (11.6-14.8) H Platelet Count 196 K/UL (150-450) Mean Platelet Volume 9.2 FL (6.5-10.1) Neutrophils (%) (Auto) % (45.0-75.0) Lymphocytes (%) (Auto) % (20.0-45.0) Monocytes (%) (Auto) % (1.0-10.0) Eosinophils (%) (Auto) % (0.0-3.0) Basophils (%) (Auto) % (0.0-2.0) Differential Total Cells Counted 100 Neutrophils % (Manual) 66 % (45-75) Lymphocytes % (Manual) 22 % (20-45) Monocytes % (Manual) 7 % (1-10) Eosinophils % (Manual) 5 % (0-3) H Basophils % (Manual) 0 % (0-2) Band Neutrophils 0 % (0-8) Platelet Estimate Adequate Platelet Morphology Normal Hypochromasia 2+ Anisocytosis 2+ [place] Cells 1+ Schistocytes 1+ Assessment/Plan Assessment/Plan Severe anemia GI bleed Jehovahs witness Ac/chr diastolic CHF PAFib Pacemaker Hx thoracic aorta repair Elev LFT's may be due to passive congestion COPD Conjunctivitis Abd pain Ac/chr renal failure - improved Diuresis O2 suppl IV iron and sq EPO Titrate anti-failure rx No aspirin or anticoag rx; off NSAID's Topical abx Defer endoscopy Yvan Encarnacion MD Jul 02, 2020 23:54
[2020-07-03] VITALS: BP 120/58
[2020-07-03 04:00] VITALS: BP 110/53
--- NOTE | 2020-07-03 07:43 | NUR ---
NURSE HAND-OFF REPORT: Important Events on Shift: No acute events Patient Status: Stable Diet: Clear liquid Pending Orders: N/A Pending Results/Labs: CBC, CMP, Mag, BNP Pending MD notification: N/A Latest Vital Signs: Temperature 98.2 , Pulse 60 , B/P 110 /53 , Respiratory Rate 18 , O2 SAT 99 , , O2 Flow Rate . Vital Sign Comment: [] EKG Rhythm: A-Paced Rhythm change?: N MD Notified?: - MD Response: Latest Munroe Fall Score: 50 Fall Risk: High Risk Safety Measures: Call light Within Reach, Bed Alarm Zone 1, Side Rails Side Rails x2, Bed position Low and Locked. Fall Precautions: Yellow Socks Report given to JENNIFER Russell
--- NOTE | 2020-07-03 07:56 | NUR ---
NURSE NOTES: Patient received from Florecita Gillette. patient alert and oriented x 2-3. Patient known to have left upper chest pacemaker. Skin issues noted. patient saturating well with 2L of oxygen via nasal cannula. no c/o pain and no s/s of respiratory distress. Noted to have low hgb, Dr aware. IV site patent and intact SL. Bed in lowest position and locked. CAll light and bedside table within reach,
[2020-07-03 08:00] VITALS: BP 126/60
[2020-07-03] MEDS: Tamsulosin 0.4mg cap ORAL SCH (08:09)
[2020-07-03] MEDS: Spironolactone 25mg tab ORAL SCH (08:09)
[2020-07-03] MEDS: Amiodarone 200mg tab ORAL SCH (08:09)
[2020-07-03] MEDS: Gentamicin 0.3% Opth Soln 5ml BOTH EYES SCH ×2 (09:00→17:41)
[2020-07-03 12:00] VITALS: BP 95/69
[2020-07-03 16:00] VITALS: BP 126/69
--- NOTE | 2020-07-03 16:02 | NUR ---
NURSE NOTES:WOUND CARE FOLLOW-UP NOTES:Pt presented on admission with multiple Pressure Injuries. Sacral Pressure Injury resolving(L)1.5cm x (W)0.5cm. Base of wound is pink with maceration. Multiple Ulcerations at base of Scrotum . Wounds are resolving(#1)Full thickness Pressure Injury base of wound resolving. Base of wound is 50% mihai 50% pink epithelial(L)2cm x (W)1.2cm. Edges are adherent to base of wound. NO exudate noted. (#2)Wound R testicle resolving. [place] epithelial at base of wound. No exudate noted (L)2cm x (W)1.2cm. (#3)Wound that is proximally to above documented wounds is also resolving(L)1cm x (W)1cm. Base of wound is 25% mihai ,75% surrounding pink epithelial.. L Heel has resolved. Heel is boggy but blanchable and non-tender when palpated . R heel has resolved. R heel is boggy but blanchable and non-tender when palpated. Pt is frequently and heavily incontinent of Bladder. Order obtained from Dr. Kearns to place urinary pouch to minimize further skin breakdown from incontinence. Pt is well endowed and unable to place urinary pouch. Confirmed with Dr. Kearns that it is Ok to improvise with Fecal pouch to contain incontinence. Fecal pouch in place and attached to drainage bag.
--- NOTE | 2020-07-03 18:26 | NUR ---
NURSE HAND-OFF REPORT: Important Events on Shift:[Wound care nurse did wound care today. ] Patient Status: [FC, A&O x3] Diet: [Clear liquid diet] Pending Orders: [] Pending Results/Labs:[] Pending MD notification:[] Latest Vital Signs: Temperature 97.9 , Pulse 63 , B/P 126 /69 , Respiratory Rate 19 , O2 SAT 100 , , O2 Flow Rate . Vital Sign Comment: [] EKG Rhythm: V-Paced Rhythm change?: N MD Notified?: - MD Response: Latest Munroe Fall Score: 50 Fall Risk: High Risk Safety Measures: Call light Within Reach, Bed Alarm Zone 1, Side Rails Side Rails x2, Bed position Low and Locked. Fall Precautions: Yellow Socks Report given to []. Addendum: 07/03/20 at 1927 by Yvonne Munoz RN Patient report given to Enrique
[2020-07-03] MEDS ORDERED: NS 275ml ONE (18:31)
[2020-07-03] MEDS ORDERED: Tubing IV Secondary IV ONE (18:31)
--- NOTE | 2020-07-03 19:30 | NUR ---
NURSE NOTES: Receive a report from JENNIFER Briseno. Round is made. Pt is asleep but easily aroused. No acute distress noted. No SOB/ chest distress noted. Pt states that CROSS decreased after pain medication earlier. On using fecal pouch to drain urine to protect scrotal wound and attached well. Noted decreased L/E edema. Call light within reach. Will continue to monitor.
[2020-07-03 20:00] VITALS: BP 120/54
--- NOTE | 2020-07-03 20:31 | General Progress Note ---
Subjective Allergies: Coded Allergies: No Known Allergies (Verified , 01/23/09) Subjective eating OK no new complaints H&H slowly rising Objective Last 24 Hour Vital Signs Date Time Temp Pulse Resp B/P (MAP) Pulse Ox O2 Delivery O2 Flow Rate FiO2 07/03/20 16:00 97.9 60 19 126/69 (88) 100 07/03/20 16:00 63 07/03/20 12:00 98.0 60 17 95/69 (78) 99 07/03/20 12:00 60 07/03/20 09:00 Room Air 07/03/20 08:00 97.9 60 18 126/60 (82) 100 07/03/20 08:00 60 07/03/20 04:00 98.2 60 18 110/53 (72) 99 07/03/20 04:00 60 07/03/20 00:00 97.9 60 16 120/58 (78) 100 07/02/20 23:00 60 07/02/20 21:00 Room Air Intake and Output 07/02/20 07/03/20 19:00 07:00 Intake Total 240 ml 480 ml Output Total 1000 ml Balance -760 ml 480 ml Intake Oral 240 ml 480 ml Output Urine Total 1000 ml # Bowel Movements 1 3 Height (Feet): 6 Height (Inches): 2.00 Weight (Pounds): 204 Objective NCAT supple CTA RRR abd mildly distended, mild diffuse lower abd TTP (+) edema Assessment/Plan Status: stable, progressing Assessment/Plan: Assessment - Iron deficiency anemia - Jehovas, declines transfusion - lower abdominal TTP, ? etiology - b/l edema and anasarca - anemia - azotemia - CHF - COPD - CHF Recommendations - EPO - IV Iron - check CT abd/pelvis --> anasarca, diverticulosis - PPI - EGD/Colon once H&H adequately improved--> can be done as outpatient if discharged Jacob Deleon MD Jul 03, 2020 20:31
[2020-07-03] MEDS: Atorvastatin 20mg tab ORAL SCH (20:45)
[2020-07-03] MEDS: Dyna-Hex 2% Top Sol 2oz TOPIC SCH (20:45)
[2020-07-04] VITALS: BP 104/48
--- NOTE | 2020-07-04 02:39 | Cardiology Progress Note ---
Subjective DATE OF SERVICE: Jul 03, 2020 No change in status; wants to go home No CP. Denies SOB. Less lower abdominal discomfort. Appetite fair. Hemoglobin up to 6.8. Objective Last 24 Hour Vital Signs Date Time Temp Pulse Resp B/P (MAP) Pulse Ox O2 Delivery O2 Flow Rate FiO2 07/04/20 00:00 97.1 61 18 104/48 (66) 100 07/04/20 00:00 60 07/03/20 21:00 Nasal Cannula 2.0 07/03/20 20:00 60 07/03/20 20:00 97.9 61 19 120/54 (76) 100 07/03/20 16:00 97.9 60 19 126/69 (88) 100 07/03/20 16:00 63 07/03/20 12:00 98.0 60 17 95/69 (78) 99 07/03/20 12:00 60 07/03/20 09:00 Room Air 07/03/20 08:00 97.9 60 18 126/60 (82) 100 07/03/20 08:00 60 07/03/20 04:00 98.2 60 18 110/53 (72) 99 07/03/20 04:00 60 HEENT: normal ENT inspection RHYTHM: Afib, other - demand Ventric pacing LUNGS: diminished breath sounds CARDIAC: normal rate, normal S1 and S2, irregularly irregular, systolic murmur - 1/6 apical systolic murmur ABDOMEN: normal bowel sounds EXTREMITIES: normal range of motion, +3 edema Assessment/Plan Assessment/Plan Severe anemia GI bleed Jehovahs witness Ac/chr diastolic CHF PAFib Pacemaker Hx thoracic aorta repair Elev LFT's may be due to passive congestion COPD Conjunctivitis Abd pain Ac/chr renal failure - improved Diuresis O2 suppl IV iron and sq EPO Titrate anti-failure rx No aspirin or anticoag rx; off NSAID's Topical abx Defer endoscopy Ptx for mobilization Yvan Encarnacion MD Jul 04, 2020 02:39
[2020-07-04 04:00] VITALS: BP 103/60
[2020-07-04 06:59] LABS: HEMATOCRIT 21.7 % (42.0-52.0); MEAN CORPUSCULAR VOLUME 87 FL (80-99); PLATELET COUNT 168 K/UL (150-450); RED CELL DISTRIBUTION WIDTH 27.6 % (11.6-14.8); WHITE BLOOD COUNT 6.4 K/UL (4.8-10.8)
--- NOTE | 2020-07-04 07:15 | NUR ---
NURSE HAND-OFF REPORT: Important Events on Shift: Denies pain. No bleeding signs noted. Patient Status: [stable] Diet: [] Pending Orders: [] Pending Results/Labs:[] Pending MD notification:[] Latest Vital Signs: Temperature 98.3 , Pulse 60 , B/P 103 /60 , Respiratory Rate 18 , O2 SAT 100 , , O2 Flow Rate 2.0 . Vital Sign Comment: [] EKG Rhythm: A-Paced Rhythm change?: N MD Notified?: - MD Response: Latest Munroe Fall Score: 50 Fall Risk: High Risk Safety Measures: Call light Within Reach, Bed Alarm Zone 1, Side Rails Side Rails x2, Bed position Low and Locked. Fall Precautions: Yellow Socks Report given to JENNIFER Russell.
--- NOTE | 2020-07-04 07:21 | NUR ---
NURSE NOTES: Patient awake alert and oriented x3. Saturating well on room air. No c/o pain and no s/s of respiratory distress. Skin issues noted. IV site patent and intact. Bed in lowest position and locked. Call light and bedside table within reach.
[2020-07-04 07:32] LABS: ALBUMIN 2.4 G/DL (3.4-5.0); ALBUMIN/GLOBULIN RATIO 0.6 (1.0-2.7); BILIRUBIN,TOTAL 2.2 MG/DL (0.2-1.0); CREATININE 1.4 MG/DL (0.55-1.30); POTASSIUM 3.3 MMOL/L (3.5-5.1)
[2020-07-04 07:43] LABS: BILIRUBIN,DIRECT 1.1 MG/DL (0.0-0.3)
[2020-07-04 08:00] VITALS: BP 111/56
--- NOTE | 2020-07-04 08:30 | NUR ---
NURSE NOTES: Called and left message for Dr. Encarnacion for patient's labs. Awaiting call back
[2020-07-04] MEDS: Spironolactone 25mg tab ORAL SCH (08:49)
[2020-07-04] MEDS: Amiodarone 200mg tab ORAL SCH (08:49)
[2020-07-04] MEDS: Tamsulosin 0.4mg cap ORAL SCH (08:49)
[2020-07-04] MEDS: Gentamicin 0.3% Opth Soln 5ml BOTH EYES SCH ×2 (09:00→17:05)
--- NOTE | 2020-07-04 11:53 | NUR ---
CASE MANAGEMENT:REVIEW 07/04/20 SI: ANEMIA. EVANGELICAL 97.9 60 18 111/56 100% ON 2L/NC RBC-2.5 H/H-6.0/21.7 K-3.3 CR+1.4 IS; K-DUR PO QD ALDACTONE PO QD IV LASIX QD EPOETIN SQ QOD FLOMAX PO QD PROSCAR PO QD AMIODARONE PO QD PROTONIX PO QD : TELEMETRY STATUS DCP: FROM HOME H/H 06/25/20 ~ 5.8/20.1 06/27/20 ~ 5.6/19.2 06/29/20 ~ 5.8/20.1 06/30/20 ~ 6.2/.6 07/02/20 ~ 6.6/.5 07/04/20 ~ 6.0/.7
[2020-07-04 12:00] VITALS: BP 96/51
--- NOTE | 2020-07-04 12:34 | Consultation ---
History of Present Illness General Date patient seen: Jul 04, 2020 Present Illness HPI 84-year-old male currently admitted to [facility] anemia significant under medical care and management identified to have decubitus ulcer sacrum as well as incontinence urinary issues with incontinence associated dermatitis being identified surgery called to evaluate assist with care patient seen patient evaluate chart reviewed. Patient dates he is doing well no nausea fever chills labs noted comfortable wounds evaluated care plan initiated Allergies: Coded Allergies: No Known Allergies (Verified , 01/23/09) COVID-19 Screening Contact w/high risk pt: No Experienced COVID-19 symptoms?: No Medication History Scheduled Amiodarone Hcl* (Pacerone*), 200 MG ORAL DAILY, (Reported) Aspirin Ec* (Aspirin Ec*), 81 MG ORAL DAILY, (Reported) Atorvastatin Calcium* (Atorvastatin Calcium*), 40 MG ORAL BEDTIME, (Reported) Diclofenac Sodium (Voltaren), 2-4 GM TP TID, (Reported) Ergocalciferol (Vitamin D2) (Vitamin D2), 50,000 UNIT PO ONCE A WEEK, (Reported) Famotidine* (Pepcid 20mg tablet*), 20 MG ORAL TWICE A DAY, (Reported) Ferrous Sulfate* (Ferrous Sulfate*), 325 MG ORAL DAILY, (Reported) Finasteride* (Proscar*), 5 MG ORAL DAILY, (Reported) Fluticasone Propionate* (Fluticasone Propionate*), 1 SPRAY NASAL DAILY, (R eported) Furosemide* (Lasix*), 40 MG ORAL DAILY, (Reported) Gabapentin (Neurontin), 300 MG ORAL THREE TIMES A DAY, (Reported) Gentamicin Sulfate* (Gentak*), 2 DROP BOTH EYES BID, (Reported) Losartan Potassium (Losartan Potassium), 100 MG PO DAILY, (Reported) Metoprolol Succinate* (Metoprolol Succinate*), 25 MG PO DAILY, (Reported) Potassium Chloride* (K-Dur*), 20 MEQ ORAL DAILY, (Reported) Tamsulosin HCl (Flomax), 0.4 MG ORAL DAILY, (Reported) Scheduled PRN Albuterol Sulfate (Proventil Hfa), 1-2 PUFFS IH Q4 TO 6 HRS PRN for Shortness of Breath, (Reported) Fluticasone/Vilanterol (Breo Ellipta 100-25 Mcg INH), 1 EACH IH DAILY PRN for Shortness of Breath, (Reported) Hydrocodone Bit/Acetaminophen 10-325* (Hydrocodon-Acetaminophn 10-325*), 1 TAB ORAL BID PRN for For Pain, (Reported) Ipratropium/Albuterol Sulfate (Combivent Respimat Inhal [place]), 1 PUFF IH QID PRN for Shortness of Breath, (Reported) Ipratropium/Albuterol Sulfate (DuoNeb 0.5-3(2.5)mg/3ml), 3 ML HHN TID PRN for Shortness of Breath, (Reported) Temazepam* (Temazepam*), 30 MG ORAL BEDTIME PRN for Insomnia, (Reported) Discontinued Medications Amiodarone Hcl* (Cordarone*), 200 MG ORAL DAILY, (Reported) Discontinued Reason: Prescription changed Amlodipine Besylate* (Amlodipine Besylate*), 2.5 MG ORAL DAILY, (Reported) Discontinued Reason: Therapy completed Aspirin* (Aspir 81*), 81 MG ORAL DAILY, (Reported) Discontinued Reason: Therapy completed Levofloxacin (Levofloxacin*), 500 MG ORAL DAILY, (Reported) Discontinued Reason: Therapy completed Losartan Potassium* (Losartan Potassium*), 100 MG ORAL DAILY, (Reported) Discontinued Reason: Therapy completed Oxybutynin Chloride (Oxybutynin Chloride Er), 5 MG PO BEDTIME, (Reported) Discontinued Reason: Therapy completed Potassium Chloride* (K-Dur*), 20 MEQ ORAL TWICE A DAY, (Reported) Discontinued Reason: Pt had allergic rxn Prednisone* (Prednisone*), 5 MG ORAL DAILY, (Reported) Discontinued Reason: Therapy completed Rosuvastatin Calcium (Crestor), 10 MG ORAL DAILY, (Reported) Discontinued Reason: Therapy completed Patient History History Provided By: Patient, Medical Record, PMD Healthcare decision maker Resuscitation status Advanced Directive on File Yes Past Medical/Surgical History Past Medical/Surgical History: (1) Chronic obstructive pulmonary disease (2) Sacral decubitus ulcer (3) PNA (pneumonia) (4) Anemia (5) Elevated troponin (6) UTI (lower urinary tract infection) (7) Acute exacerbation of CHF (congestive heart failure) (8) UTI (lower urinary tract infection) (9) Atrial fibrillation (10) CHF (congestive heart failure) (11) Orthopnea (12) Dyspnea on exertion (13) Swelling of lower extremity (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 (16) Hemoptysis (17) Stroke (18) COPD exacerbation (19) Acute exacerbation of CHF (congestive heart failure) (20) Epistaxis Review of Systems Review of Symptoms General ROS: no weight loss or fever Psychological ROS: no depression or mood changes, no memory loss Ophthalmic ROS: no visual changes or eye irritation ENT ROS: no nasal congestion, hearing loss, dizziness Allergy and Immunology ROS: no allergic symptoms or urticaria Hematological and Lymphatic ROS: no swollen glands, unusual bleeding or bruising Endocrine ROS: no polyuria, polydipsia, weight changes, temperature intolerance Respiratory ROS: no cough, shortness of breath, or wheezing Cardiovascular ROS: no chest pain or dyspnea on exertion Gastrointestinal ROS: denies abdominal pain, bright red blood in stool. Musculoskeletal ROS: no myalgias or arthralgias Neurological ROS: no TIA or stroke symptoms Dermatological ROS: no new or changing skin lesions, rashes or pruritis Physical Exam Physical Exam General appearance: alert, cooperative, no distress, appears stated age Head: Normocephalic, without obvious abnormality, atraumatic Eyes: conjunctivae/corneas clear. PERRL, EOM's intact. Fundi benign Throat: Lips, mucosa, and tongue normal. Teeth and gums normal Neck: supple, symmetrical, trachea midline, no adenopathy, thyroid: not enlarged, symmetric, no tenderness/mass/nodules, no carotid bruit and no JVD Lungs: clear to auscultation bilaterally Heart: regular rate and rhythm, S1, S2 normal, no murmur, click, rub or gallop Abdomen: soft, non-tender. Bowel sounds normal. No masses, no organomegaly Extremities: extremities normal, atraumatic, no cyanosis or edema Pulses: 2+ and symmetric Skin: Skin see below Neurologic: Grossly normal Last 24 Hour Vital Signs Date Time Temp Pulse Resp B/P (MAP) Pulse Ox O2 Delivery O2 Flow Rate FiO2 07/04/20 12:00 97.9 60 18 96/51 (66) 100 07/04/20 09:00 Nasal Cannula 2.0 07/04/20 08:00 97.9 60 18 111/56 (74) 100 07/04/20 08:00 60 07/04/20 04:00 98.3 62 18 103/60 (74) 100 07/04/20 04:00 60 07/04/20 00:00 97.1 61 18 104/48 (66) 100 07/04/20 00:00 60 07/03/20 21:00 Nasal Cannula 2.0 07/03/20 20:00 60 07/03/20 20:00 97.9 61 19 120/54 (76) 100 07/03/20 16:00 97.9 60 19 126/69 (88) 100 07/03/20 16:00 63 Intake and Output 07/03/20 07/04/20 19:00 07:00 Intake Total 100 ml Output Total 200 ml 500 ml Balance -200 ml -400 ml Intake Oral 100 ml Output Urine Total 200 ml 500 ml # Voids 4 # Bowel Movements 1 Laboratory Tests Test 07/04/20 06:20 White Blood Count 6.4 K/UL (4.8-10.8) Red Blood Count 2.50 M/UL (4.70-6.10) L Hemoglobin 6.0 G/DL (14.2-18.0) *L Hematocrit 21.7 % (42.0-52.0) L Mean Corpuscular Volume 87 FL (80-99) Mean Corpuscular Hemoglobin 23.9 PG (27.0-31.0) L Mean Corpuscular Hemoglobin Concent 27.5 G/DL (32.0-36.0) L Red Cell Distribution Width 27.6 % (11.6-14.8) H Platelet Count 168 K/UL (150-450) Mean Platelet Volume 7.3 FL (6.5-10.1) Neutrophils (%) (Auto) % (45.0-75.0) Lymphocytes (%) (Auto) % (20.0-45.0) Monocytes (%) (Auto) % (1.0-10.0) Eosinophils (%) (Auto) % (0.0-3.0) Basophils (%) (Auto) % (0.0-2.0) Differential Total Cells Counted 100 Neutrophils % (Manual) 58 % (45-75) Lymphocytes % (Manual) 23 % (20-45) Monocytes % (Manual) 11 % (1-10) H Eosinophils % (Manual) 8 % (0-3) H Basophils % (Manual) 0 % (0-2) Band Neutrophils 0 % (0-8) Platelet Estimate Adequate Platelet Morphology Normal Polychromasia 1+ Hypochromasia 2+ Anisocytosis 3+ Target Cells Occasional Schistocytes 2+ Sodium Level 142 MMOL/L (136-145) Potassium Level 3.3 MMOL/L (3.5-5.1) L Chloride Level 109 MMOL/L (98-107) H Carbon Dioxide Level 29 MMOL/L (21-32) Anion Gap 4 mmol/L (5-15) L Blood Urea Nitrogen 19 mg/dL (7-18) H Creatinine 1.4 MG/DL (0.55-1.30) H Estimat Glomerular Filtration Rate 58.5 mL/min (>60) Glucose Level 83 MG/DL (74-106) Calcium Level 10.0 MG/DL (8.5-10.1) Magnesium Level 1.9 MG/DL (1.8-2.4) Total Bilirubin 2.2 MG/DL (0.2-1.0) H Direct Bilirubin 1.1 MG/DL (0.0-0.3) H Aspartate Amino Transf (AST/SGOT) 21 U/L (15-37) Alanine Aminotransferase (ALT/SGPT) 8 U/L (12-78) L Alkaline Phosphatase 66 U/L (46-116) Pro-B-Type Natriuretic Peptide 4569 pg/mL (0-125) H Total Protein 6.4 G/DL (6.4-8.2) Albumin 2.4 G/DL (3.4-5.0) L Globulin 4.0 g/dL Albumin/Globulin Ratio 0.6 (1.0-2.7) L Height (Feet): 6 Height (Inches): 2.00 Weight (Pounds): 204 Medications Current Medications Medications (Trade) Dose Ordered Sig/Susie Route PRN Reason Start Time Stop Time Status Last Admin Dose Admin Acetaminophen (Tylenol) 650 mg Q4H PRN ORAL For Pain 06/26/20 04:15 07/26/20 04:14 07/04/20 08:58 Amiodarone HCl (Cordarone) 200 mg DAILY ORAL 06/26/20 09:00 09/24/20 08:59 07/04/20 08:49 Atorvastatin Calcium (Lipitor) 40 mg BEDTIME ORAL 06/25/20 23:00 09/23/20 22:59 07/03/20 20:45 Chlorhexidine Gluconate (Zaira-Hex 2%) 1 applic DAILY@2000 TOPIC 06/25/20 23:00 09/23/20 22:59 07/03/20 20:45 Dextrose (Dextrose 50%) 25 ml Q30M PRN IV Hypoglycemia 06/25/20 20:15 09/23/20 20:14 Dextrose (Dextrose 50%) 50 ml Q30M PRN IV Hypoglycemia 06/25/20 20:15 09/23/20 20:14 Epoetin Diony (Epoetin Diony-EPBX(NON ESRD)) 10,000 unit QOD@2100 SUBQ 06/26/20 14:00 07/14/20 21:01 07/02/20 20:12 Finasteride (Proscar) 5 mg DAILY ORAL 06/26/20 09:00 09/24/20 08:59 07/04/20 08:49 Furosemide (Lasix) 40 mg DAILY IV 06/26/20 17:15 07/26/20 17:14 07/04/20 08:49 Gentamicin Sulfate (Garamycin 0.3% Opt Sol) 1 drop BID BOTH EYES 07/01/20 09:00 07/06/20 10:00 07/01/20 09:04 Pantoprazole (Protonix) 40 mg DAILY ORAL 06/26/20 09:00 07/26/20 08:59 07/04/20 08:49 Potassium Chloride (K-Dur) 20 meq DAILY ORAL 07/05/20 09:00 10/03/20 08:59 Spironolactone (Aldactone) 25 mg DAILY ORAL 07/02/20 09:00 08/01/20 08:59 07/04/20 08:49 Tamsulosin HCl (Flomax) 0.4 mg DAILY ORAL 06/26/20 09:00 07/26/20 08:59 07/04/20 08:49 Assessment/Plan Problem List: (1) Anemia ICD Codes: D64.9 - Anemia, unspecified SNOMED: 319487902 (2) Chronic obstructive pulmonary disease ICD Codes: J44.9 - Chronic obstructive pulmonary disease, unspecified SNOMED: 64072007 (3) Sacral decubitus ulcer Assessment & Plan: Pt presented on admission with multiple Pressure Injuries. Sacral Pressure Injury resolving(L)1.5cm x (W)0.5cm. Base of wound is pink with maceration. Multiple Ulcerations at base of Scrotum . Wounds are resolving(#1) Full thickness Pressure Injury base of wound resolving. Base of wound is 50% mihai 50% pink epithelial(L)2cm x (W)1.2cm. Edges are adherent to base of wound. NO exudate noted. (#2)Wound R testicle resolving. Whitestone epithelial at base of wound. No exudate noted (L)2cm x (W)1.2cm. (#3)Wound that is proximally to above documented wounds is also resolving(L)1cm x (W)1cm. Base of wound is 25% mihai ,75% surrounding pink epithelial.. L Heel has resolved. Heel is boggy but blanchable and non-tender when palpated R heel has resolved. R heel is boggy but blanchable and non-tender when palpated. Pt is frequently and heavily incontinent of Bladder. place urinary pouch to m inimize further skin breakdown from incontinence. Pt is well endowed and unable to place urinary pouch. Ok to improvise with Fecal pouch to contain incontinence. Fecal pouch in place and attached to drainage bag. DAILY ESTIMATED NEEDS: Needs based on Cardiac, wound 88kg abw 25-35 kcals/kg [id number] total kcals 1.25-1.5 g protein/kg 110-132 g total protein Fluid per MD, on lasix NUTRITION DIAGNOSIS: Increased kcal and pro needs r/t wound healing as evidenced by w/ full thickness scrotal wound, refer to full wound care eval. CURRENT DIET:cardiac PO DIET RECOMMENDATIONS: Liberalized Regular diet/ texture as tolerated w/ variable po intake ADDITIONAL RECOMMENDATIONS: 1)CALIBRATED BED SCALE wt 2) On lasix, monitor lytes daily 3) 1:1 feeds 4) Texture per DOLLYMAN 5) Add ENSURE ENLIVE BID BID in b/w meal s 6) WOUND CARE: Add VIT C 500mg BID + MVI w/ min x1 daily + KELLEY BID ICD Codes: L89.159 - Pressure ulcer of sacral region, unspecified stage SNOMED: 513823954 (4) PNA (pneumonia) ICD Codes: J18.9 - Pneumonia, unspecified organism SNOMED: 420630686 (5) Elevated troponin ICD Codes: R74.8 - Elevated troponin SNOMED: 448611454 (6) UTI (lower urinary tract infection) ICD Codes: N39.0 - Urinary tract infection, site not specified SNOMED: 3880858 (7) Acute exacerbation of CHF (congestive heart failure) ICD Codes: I50.9 - Heart failure, unspecified SNOMED: 60298514 (8) UTI (lower urinary tract infection) ICD Codes: N39.0 - Urinary tract infection, site not specified SNOMED: 7077662 (9) Atrial fibrillation ICD Codes: I48.91 - Atrial fibrillation SNOMED: 19865364 (10) CHF (congestive heart failure) ICD Codes: I50.9 - CHF (congestive heart failure) SNOMED: 78189050 (11) Orthopnea (12) Dyspnea on exertion (13) Swelling of lower extremity ICD Codes: M79.89 - Other specified soft tissue disorders SNOMED: 797782471, 052375096 (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 (16) Hemoptysis ICD Codes: R04.2 - Hemoptysis SNOMED: 50353398 (17) Stroke ICD Codes: I63.9 - Cerebral infarction, unspecified SNOMED: 560808189 (18) COPD exacerbation ICD Codes: J44.1 - Chronic obstructive pulmonary disease with (acute) exacerbation SNOMED: 995516553 (19) Acute exacerbation of CHF (congestive heart failure) (20) Epistaxis ICD Codes: R04.0 - Epistaxis SNOMED: 519709663 Erlin Kearns Jul 04, 2020 12:34
--- NOTE | 2020-07-04 13:45 | NUR ---
PT EVALUATION NOTE Patient seen for initial evaluation and treatment initiated. Patient presents with generalized weakness and low Hgb with impaired ability to perform mobility tasks safely. Patient requires mod/max assist for bed mobility, unable to transfer at this time due to weakness. Patient able to tolerate sitting at the EOB x 7 minutes. Patient will benefit from skilled inpatient PT intervention to increase strength and postural stability for improved level of functional mobility, safety and activity tolerance. Recommend discharge to SNF for continued rehab once medically cleared by MD. Addendum: 07/04/20 at 1428 by PEYTON MILLER PT Amended: Links added.
[2020-07-04 16:00] VITALS: BP 123/84
[2020-07-04] MEDS: Ascorbic Acid 500mg tab ORAL SCH (17:05)
--- NOTE | 2020-07-04 17:58 | Cardiology Progress Note ---
Subjective DATE OF SERVICE: Jul 04, 2020 Feels weak, but denies CP. No SOB in bedbound state; mobilization OOB planned today No N/V/D or pain. Appetite fair. Hemoglobin dropped from 6.8 to 6.0 today; no signs of GI blood loss. Objective Last 24 Hour Vital Signs Date Time Temp Pulse Resp B/P (MAP) Pulse Ox O2 Delivery O2 Flow Rate FiO2 07/04/20 16:00 60 07/04/20 16:00 97.9 60 17 123/84 (97) 100 07/04/20 12:00 60 07/04/20 12:00 97.9 60 18 96/51 (66) 100 07/04/20 09:00 Nasal Cannula 2.0 07/04/20 08:00 97.9 60 18 111/56 (74) 100 07/04/20 08:00 60 07/04/20 04:00 98.3 62 18 103/60 (74) 100 07/04/20 04:00 60 07/04/20 00:00 97.1 61 18 104/48 (66) 100 07/04/20 00:00 60 07/03/20 21:00 Nasal Cannula 2.0 07/03/20 20:00 60 07/03/20 20:00 97.9 61 19 120/54 (76) 100 HEENT: normal ENT inspection RHYTHM: Afib, other - demand Ventric pacing LUNGS: diminished breath sounds CARDIAC: normal rate, normal S1 and S2, irregularly irregular, systolic murmur - 1/6 apical systolic murmur ABDOMEN: normal bowel sounds EXTREMITIES: normal range of motion, +3 edema Laboratory Tests Test 07/04/20 06:20 White Blood Count 6.4 K/UL (4.8-10.8) Red Blood Count 2.50 M/UL (4.70-6.10) L Hemoglobin 6.0 G/DL (14.2-18.0) *L Hematocrit 21.7 % (42.0-52.0) L Mean Corpuscular Volume 87 FL (80-99) Mean Corpuscular Hemoglobin 23.9 PG (27.0-31.0) L Mean Corpuscular Hemoglobin Concent 27.5 G/DL (32.0-36.0) L Red Cell Distribution Width 27.6 % (11.6-14.8) H Platelet Count 168 K/UL (150-450) Mean Platelet Volume 7.3 FL (6.5-10.1) Neutrophils (%) (Auto) % (45.0-75.0) Lymphocytes (%) (Auto) % (20.0-45.0) Monocytes (%) (Auto) % (1.0-10.0) Eosinophils (%) (Auto) % (0.0-3.0) Basophils (%) (Auto) % (0.0-2.0) Differential Total Cells Counted 100 Neutrophils % (Manual) 58 % (45-75) Lymphocytes % (Manual) 23 % (20-45) Monocytes % (Manual) 11 % (1-10) H Eosinophils % (Manual) 8 % (0-3) H Basophils % (Manual) 0 % (0-2) Band Neutrophils 0 % (0-8) Platelet Estimate Adequate Platelet Morphology Normal Polychromasia 1+ Hypochromasia 2+ Anisocytosis 3+ Target Cells Occasional Schistocytes 2+ Sodium Level 142 MMOL/L (136-145) Potassium Level 3.3 MMOL/L (3.5-5.1) L Chloride Level 109 MMOL/L (98-107) H Carbon Dioxide Level 29 MMOL/L (21-32) Anion Gap 4 mmol/L (5-15) L Blood Urea Nitrogen 19 mg/dL (7-18) H Creatinine 1.4 MG/DL (0.55-1.30) H Estimat Glomerular Filtration Rate 58.5 mL/min (>60) Glucose Level 83 MG/DL (74-106) Calcium Level 10.0 MG/DL (8.5-10.1) Magnesium Level 1.9 MG/DL (1.8-2.4) Total Bilirubin 2.2 MG/DL (0.2-1.0) H Direct Bilirubin 1.1 MG/DL (0.0-0.3) H Aspartate Amino Transf (AST/SGOT) 21 U/L (15-37) Alanine Aminotransferase (ALT/SGPT) 8 U/L (12-78) L Alkaline Phosphatase 66 U/L (46-116) Pro-B-Type Natriuretic Peptide 4569 pg/mL (0-125) H Total Protein 6.4 G/DL (6.4-8.2) Albumin 2.4 G/DL (3.4-5.0) L Globulin 4.0 g/dL Albumin/Globulin Ratio 0.6 (1.0-2.7) L Assessment/Plan Assessment/Plan Severe anemia GI bleed Jehovahs witness Ac/chr diastolic CHF PAFib Pacemaker Hx thoracic aorta repair Elev LFT's may be due to passive congestion COPD Conjunctivitis Abd pain Ac/chr renal failure - improved Diuresis with caution O2 suppl IV iron and sq EPO Titrate anti-failure rx No aspirin or anticoag rx; off NSAID's Topical abx Reassess for endoscopy Ptx for mobilization Discussed with , Lauren x 20" Yvan Encarnacion MD Jul 04, 2020 17:58
--- NOTE | 2020-07-04 18:16 | NUR ---
NURSE HAND-OFF REPORT: Important Events on Shift:[PT eval today, Doctor aware of labs, K 3.3 given K-Dur 40MEQ] Patient Status: [FC, A&O x3] Diet: [Clear liquid diet] Pending Orders: [] Pending Results/Labs:[] Pending MD notification:[] Latest Vital Signs: Temperature 97.9 , Pulse 60 , B/P 123 /84 , Respiratory Rate 17 , O2 SAT 100 , , O2 Flow Rate 2.0 . Vital Sign Comment: [] EKG Rhythm: A-Paced Rhythm change?: N MD Notified?: - MD Response: Latest [place] Fall Score: 50 Fall Risk: High Risk Safety Measures: Call light Within Reach, Bed Alarm Zone 1, Side Rails Side Rails x2, Bed position Low and Locked. Fall Precautions: Yellow Socks Report given to []. Addendum: 07/04/20 at 1935 by Yvonne Munoz RN Patient report given to Mercedes Snow
--- NOTE | 2020-07-04 19:15 | NUR ---
NURSE NOTES: Important Events on Shift: Received report from Yvonne Steven RN. Pt in bed, c/o ongoing eye pain, given Tylenol, will reassess appropriately. MDs Alysha and Lexx previously aware of eye pain; currently being treated. Pt is using warm compress to help relieve pain, states it has been effective. Pt has no other complaints at this time. Will continue plan of care and close monitoring. Patient Status: Full Code Diet: Clear liquid Pending Orders: none Pending Results/Labs: AM labs Pending MD notification: none Latest Vital Signs: Temperature 97.9 , Pulse 60 , B/P 122 /66 , Respiratory Rate 18 , O2 SAT 100 , , O2 Flow Rate 2.0 . Vital Sign Comment: Per report, stable throughout shift. EKG Rhythm: A-Paced Rhythm change?: N MD Notified?: - MD Response: - Latest [place] Fall Score: 50 Fall Risk: High Risk Safety Measures: Call light Within Reach, Bed Alarm Zone 1, Side Rails Side Rails x2, Bed position Low and Locked. Fall Precautions: Yellow Socks, Yellow gown. door sign, pt education.
[2020-07-04 20:00] VITALS: BP 108/50
[2020-07-04] MEDS: Dyna-Hex 2% Top Sol 2oz TOPIC SCH (20:40)
[2020-07-04] MEDS: Epoetin Alfa-EPBX (NON ESRD)10,000 unit/ml vial SUBQ SCH (20:41)
[2020-07-04] MEDS: Atorvastatin 20mg tab ORAL SCH (20:44)
--- NOTE | 2020-07-04 21:44 | General Progress Note ---
Subjective Allergies: Coded Allergies: No Known Allergies (Verified , 01/23/09) Subjective eating OK no new complaints H&H lower today but Cr gradually declining as well Objective Last 24 Hour Vital Signs Date Time Temp Pulse Resp B/P (MAP) Pulse Ox O2 Delivery O2 Flow Rate FiO2 07/04/20 16:00 60 07/04/20 16:00 97.9 60 17 123/84 (97) 100 07/04/20 12:00 60 07/04/20 12:00 97.9 60 18 96/51 (66) 100 07/04/20 09:00 Nasal Cannula 2.0 07/04/20 08:00 97.9 60 18 111/56 (74) 100 07/04/20 08:00 60 07/04/20 04:00 98.3 62 18 103/60 (74) 100 07/04/20 04:00 60 07/04/20 00:00 97.1 61 18 104/48 (66) 100 07/04/20 00:00 60 Intake and Output 07/03/20 07/04/20 19:00 07:00 Intake Total 100 ml Output Total 200 ml 500 ml Balance -200 ml -400 ml Intake Oral 100 ml Output Urine Total 200 ml 500 ml # Voids 4 # Bowel Movements 1 Laboratory Tests 07/04/20 06:20: White Blood Count 6.4, Red Blood Count 2.50L, Hemoglobin 6.0*L, Hematocrit 21.7L , Mean Corpuscular Volume 87, Mean Corpuscular Hemoglobin 23.9L, Mean Corpuscular Hemoglobin Concent 27.5L, Red Cell Distribution Width 27.6H, Platelet Count 168, Mean Platelet Volume 7.3, Neutrophils (%) (Auto) , Lymphocy ed (%) (Auto) , Monocytes (%) (Auto) , Eosinophils (%) (Auto) , Basophils (%) (Auto) , Differential Total Cells Counted 100, Neutrophils % (Manual) 58, Lymphocytes % (Manual) 23, Monocytes % (Manual) 11H, Eosinophils % (Manual) 8H, Basophils % (Manual) 0, Band Neutrophils 0, Platelet Estimate Adequate, Platelet Morphology Normal, Polychromasia 1+, Hypochromasia 2+, Anisocytosis 3+, Target Cells Occasional, Schistocytes 2+, Sodium Level 142, Potassium Level 3.3L, Chloride Level 109H, Carbon Dioxide Level 29, Anion Gap 4L, Blood Urea Nitrogen 19H, Creatinine 1.4H, Estimat Glomerular Filtration Rate 58.5, Glucose Level 83, Calcium Level 10.0, Magnesium Level 1.9, Total Bilirubin 2.2H, Direct Bilirubin 1.1H, Aspartate Amino Transf (AST/SGOT) 21, Alanine Aminotransferase (ALT/SGPT) 8L, Alkaline Phosphatase 66, Pro-B-Type Natriuretic Peptide 4569H, Total Protein 6.4, Albumin 2.4L, Globulin 4.0, Albumin/Globulin Ratio 0.6L Height (Feet): 6 Height (Inches): 2.00 Weight (Pounds): 204 Objective NCAT supple CTA RRR abd mildly distended, mild diffuse lower abd TTP (+) edema Assessment/Plan Status: stable, progressing Assessment/Plan: Assessment - Iron deficiency anemia - Jehovas, declines transfusion - lower abdominal TTP, ? etiology - b/l edema and anasarca - improved - azotemia - improving - CHF - COPD - CHF Recommendations - EPO - IV Iron - check CT abd/pelvis --> anasarca, diverticulosis - PPI - EGD/Colon once H&H adequately improved--> can be done as outpatient if dischar Jacob Aragon MD Jul 04, 2020 21:44
[2020-07-05 00:15] VITALS: BP 122/66
[2020-07-05 03:49] VITALS: BP 153/90
[2020-07-05 05:57] LABS: HEMATOCRIT 23.2 % (42.0-52.0); MEAN CORPUSCULAR VOLUME 86 FL (80-99); PLATELET COUNT 174 K/UL (150-450); RED BLOOD COUNT 2.69 M/UL (4.70-6.10); RED CELL DISTRIBUTION WIDTH 26.9 % (11.6-14.8); WHITE BLOOD COUNT 6.6 K/UL (4.8-10.8)
[2020-07-05 06:07] LABS: HEMOGLOBIN 6.4 G/DL (14.2-18.0)
[2020-07-05 06:23] LABS: ALBUMIN 2.6 G/DL (3.4-5.0); ALBUMIN/GLOBULIN RATIO 0.6 (1.0-2.7); BILIRUBIN,TOTAL 2.3 MG/DL (0.2-1.0); CREATININE 1.4 MG/DL (0.55-1.30); POTASSIUM 3.6 MMOL/L (3.5-5.1)
[2020-07-05 06:25] LABS: BILIRUBIN,DIRECT 1.1 MG/DL (0.0-0.3)
--- NOTE | 2020-07-05 07:18 | General Progress Note ---
Subjective ROS Limited/Unobtainable: Yes Allergies: Coded Allergies: No Known Allergies (Verified , 01/23/09) Objective Last 24 Hour Vital Signs Date Time Temp Pulse Resp B/P (MAP) Pulse Ox O2 Delivery O2 Flow Rate FiO2 07/05/20 04:00 64 07/05/20 03:49 97.7 63 19 153/90 (111) 100 07/05/20 00:15 97.9 60 18 122/66 (84) 100 07/05/20 00:00 60 07/04/20 21:16 97.9 07/04/20 21:00 Nasal Cannula 2.0 07/04/20 20:00 97.9 60 19 108/50 (69) 100 07/04/20 20:00 64 07/04/20 16:00 60 07/04/20 16:00 97.9 60 17 123/84 (97) 100 07/04/20 12:00 60 07/04/20 12:00 97.9 60 18 96/51 (66) 100 07/04/20 09:00 Nasal Cannula 2.0 07/04/20 08:00 97.9 60 18 111/56 (74) 100 07/04/20 08:00 60 Intake and Output 07/04/20 07/05/20 19:00 07:00 Intake Total 100 ml 560 ml Output Total 600 ml 1000 ml Balance -500 ml -440 ml Intake Oral 100 ml 300 ml Other 260 ml Output Urine Total 600 ml 1000 ml # Bowel Movements 1 Laboratory Tests 07/05/20 04:55: White Blood Count 6.6, Red Blood Count 2.69L, Hemoglobin 6.4*L, Hematocrit 23.2L , Mean Corpuscular Volume 86, Mean Corpuscular Hemoglobin 23.9L, Mean Corpuscular Hemoglobin Concent 27.7L, Red Cell Distribution Width 26.9H, Platelet Count 174, Mean Platelet Volume 6.6, Neutrophils (%) (Auto) , Lymphocytes (%) (Auto) , Monocytes (%) (Auto) , Eosinophils (%) (Auto) , Basophils (%) (Auto) , Neutrophils % (Manual) [Pending], Lymphocytes % (Manual) [Pending], Platelet Estimate [Pending], Platelet Morphology [Pending], Sodium Level 141, Potassium Level 3.6, Chloride Level 107, Carbon Dioxide Level 27, Anion Gap 7, Blood Urea Nitrogen 24H, Creatinine 1.4H, Estimat Glomerular Filtration Rate 58.5, Glucose Level 93, Calcium Level 10.0, Total Bilirubin 2.3H , Direct Bilirubin 1.1H, Aspartate Amino Transf (AST/SGOT) 27, Alanine Aminotransferase (ALT/SGPT) 11L, Alkaline Phosphatase 73, Total Protein 7.0, Albumin 2.6L, Globulin 4.4, Albumin/Globulin Ratio 0.6L Height (Feet): 6 Height (Inches): 2.00 Weight (Pounds): 204 General Appearance: no apparent distress EENT: normal ENT inspection Neck: supple Cardiovascular: normal rate Respiratory/Chest: decreased breath sounds Abdomen: decreased bowel sounds Extremities: non-tender Assessment/Plan Status: stable, progressing Assessment/Plan: Assessment/Plan: Assessment - Iron deficiency anemia - Jehovas, declines transfusion - lower abdominal TTP, ? etiology - b/l edema and anasarca - improved - azotemia - improving - CHF - COPD - CHF Recommendations - EPO - IV Iron - check CT abd/pelvis --> anasarca, diverticulosis - PPI - EGD/Colon once H&H adequately improved--> can be done as outpatient if discharged Dhaval Campbell MD Jul 05, 2020 07:18
[2020-07-05 08:00] VITALS: BP 122/57
--- NOTE | 2020-07-05 08:00 | NUR ---
NURSE HAND-OFF REPORT: Important Events on Shift: Pt HBG trending up as expected to 6.4, Patient Status: full code Diet: clear liquid Pending Orders: none Pending Results/Labs: none Pending MD notification: HBG trending up as expected Latest Vital Signs: Temperature 97.7 , Pulse 64 , B/P 153 /90 , Respiratory Rate 19 , O2 SAT 100 , , O2 Flow Rate 2.0 . Vital Sign Comment: stable throughout shift EKG Rhythm: NSR w/ 1AVB Rhythm change?: N MD Notified?: - MD Response: Latest Munroe Fall Score: 50 Fall Risk: High Risk Safety Measures: Call light Within Reach, Bed Alarm Zone 1, Side Rails Side Rails x2, Bed position Low and Locked. Fall Precautions: Yellow Socks, yellow gown, pt education, door sign. Report given to Niko Gonzalez RN.
--- NOTE | 2020-07-05 08:26 | NUR ---
NURSE NOTES: Received report from Mercedes Snow RN. Patient sitting up in bed, awkae and alert, on 1 liter nasal cannula, asking for bagel, cream cheese, bed in lowest position, call light within reach, no c/o pain, no SOB, side rails up x 3, in no apparent distress.
[2020-07-05] MEDS: Ascorbic Acid 500mg tab ORAL SCH ×2 (09:57→17:41)
[2020-07-05] MEDS: Tamsulosin 0.4mg cap ORAL SCH (09:57)
[2020-07-05] MEDS: Spironolactone 25mg tab ORAL SCH (09:58)
[2020-07-05] MEDS: Amiodarone 200mg tab ORAL SCH (09:59)
[2020-07-05] MEDS: Gentamicin 0.3% Opth Soln 5ml BOTH EYES SCH ×2 (10:00→17:35)
--- NOTE | 2020-07-05 10:04 | Surgery Progress Note ---
Surgery Progress Note Subjective Symptoms: improved, tolerating diet, voiding well, passing flatus Objective Last 24 Hour Vital Signs Date Time Temp Pulse Resp B/P (MAP) Pulse Ox O2 Delivery O2 Flow Rate FiO2 07/05/20 08:00 97.5 60 20 122/57 (78) 94 07/05/20 05:21 97.7 07/05/20 04:00 64 07/05/20 03:49 97.7 63 19 153/90 (111) 100 07/05/20 00:15 97.9 60 18 122/66 (84) 100 07/05/20 00:00 60 07/04/20 21:16 97.9 07/04/20 21:00 Nasal Cannula 2.0 07/04/20 20:00 97.9 60 19 108/50 (69) 100 07/04/20 20:00 64 07/04/20 16:00 60 07/04/20 16:00 97.9 60 17 123/84 (97) 100 07/04/20 12:00 60 07/04/20 12:00 97.9 60 18 96/51 (66) 100 I&O Intake and Output 07/04/20 07/05/20 19:00 07:00 Intake Total 100 ml 560 ml Output Total 600 ml 1000 ml Balance -500 ml -440 ml Intake Oral 100 ml 300 ml Other 260 ml Output Urine Total 600 ml 1000 ml # Bowel Movements 1 Dressing: dry Wound: clean Cardiovascular: RSR Respiratory: clear Abdomen: soft, non-tender, present bowel sounds, non-distended Extremities: no edema, no tenderness, no cyanosis Laboratory Tests Test 07/05/20 04:55 White Blood Count 6.6 K/UL (4.8-10.8) Red Blood Count 2.69 M/UL (4.70-6.10) L Hemoglobin 6.4 G/DL (14.2-18.0) *L Hematocrit 23.2 % (42.0-52.0) L Mean Corpuscular Volume 86 FL (80-99) Mean Corpuscular Hemoglobin 23.9 PG (27.0-31.0) L Mean Corpuscular Hemoglobin Concent 27.7 G/DL (32.0-36.0) L Red Cell Distribution Width 26.9 % (11.6-14.8) H Platelet Count 174 K/UL (150-450) Mean Platelet Volume 6.6 FL (6.5-10.1) Neutrophils (%) (Auto) % (45.0-75.0) Lymphocytes (%) (Auto) % (20.0-45.0) Monocytes (%) (Auto) % (1.0-10.0) Eosinophils (%) (Auto) % (0.0-3.0) Basophils (%) (Auto) % (0.0-2.0) Differential Total Cells Counted 100 Neutrophils % (Manual) 73 % (45-75) Lymphocytes % (Manual) 14 % (20-45) L Monocytes % (Manual) 8 % (1-10) Eosinophils % (Manual) 5 % (0-3) H Basophils % (Manual) 0 % (0-2) Band Neutrophils 0 % (0-8) Platelet Estimate Adequate Platelet Morphology Normal Polychromasia 1+ Hypochromasia 2+ Anisocytosis 3+ Acanthocytes Occasional Schistocytes 1+ Sodium Level 141 MMOL/L (136-145) Potassium Level 3.6 MMOL/L (3.5-5.1) Chloride Level 107 MMOL/L (98-107) Carbon Dioxide Level 27 MMOL/L (21-32) Anion Gap 7 mmol/L (5-15) Blood Urea Nitrogen 24 mg/dL (7-18) H Creatinine 1.4 MG/DL (0.55-1.30) H Estimat Glomerular Filtration Rate 58.5 mL/min (>60) Glucose Level 93 MG/DL (74-106) Calcium Level 10.0 MG/DL (8.5-10.1) Total Bilirubin 2.3 MG/DL (0.2-1.0) H Direct Bilirubin 1.1 MG/DL (0.0-0.3) H Aspartate Amino Transf (AST/SGOT) 27 U/L (15-37) Alanine Aminotransferase (ALT/SGPT) 11 U/L (12-78) L Alkaline Phosphatase 73 U/L (46-116) Total Protein 7.0 G/DL (6.4-8.2) Albumin 2.6 G/DL (3.4-5.0) L Globulin 4.4 g/dL Albumin/Globulin Ratio 0.6 (1.0-2.7) L Plan Problems: (1) Anemia (2) Chronic obstructive pulmonary disease (3) Sacral decubitus ulcer Assessment & Plan: Pt presented on admission with multiple Pressure Injuries. Sacral Pressure Injury resolving(L)1.5cm x (W)0.5cm. Base of wound is pink with maceration. Multiple Ulcerations at base of Scrotum . Wounds are resolving(#1) Full thickness Pressure Injury base of wound resolving. Base of wound is 50% mihai 50% pink epithelial(L)2cm x (W)1.2cm. Edges are adherent to base of wound. NO exudate noted. (#2)Wound R testicle resolving. [place] epithelial at base of wound. No exudate noted (L)2cm x (W)1.2cm. (#3)Wound that is proximally to above documented wounds is also resolving(L)1cm x (W)1cm. Base of wound is 25% mihai ,75% surrounding pink epithelial.. L Heel has resolved. Heel is boggy but blanchable and non-tender when palpated R heel has resolved. R heel is boggy but blanchable and non-tender when palpated. Pt is frequently and heavily incontinent of Bladder. place urinary pouch to minimize further skin breakdown from incontinence. Pt is well endowed and unable to place urinary pouch. Ok to improvise with Fecal pouch to contain incontinence. Fecal pouch in place and attached to drainage bag. DAILY ESTIMATED NEEDS: Needs based on Cardiac, wound 88kg abw 25-35 kcals/kg 2830-9144 total kcals 1.25-1.5 g protein/kg 110-132 g total protein Fluid per MD, on lasix NUTRITION DIAGNOSIS: Increased kcal and pro needs r/t wound healing as evidenced by w/ full thickness scrotal wound, refer to full wound care eval. CURRENT DIET:cardiac PO DIET RECOMMENDATIONS: Liberalized Regular diet/ texture as tolerated w/ variable po intake ADDITIONAL RECOMMENDATIONS: 1)CALIBRATED BED SCALE wt 2) On lasix, monitor lytes daily 3) 1:1 feeds 4) Texture per [employer] 5) Add ENSURE ENLIVE BID BID in b/w meal s 6) WOUND CARE: Add VIT C 500mg BID + MVI w/ min x1 daily + KELLEY BID (4) PNA (pneumonia) (5) Elevated troponin (6) UTI (lower urinary tract infection) (7) Acute exacerbation of CHF (congestive heart failure) (8) UTI (lower urinary tract infection) (9) Atrial fibrillation (10) CHF (congestive heart failure) (11) Orthopnea (12) Dyspnea on exertion (13) Swelling of lower extremity (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 (16) Hemoptysis (17) Stroke (18) COPD exacerbation (19) Acute exacerbation of CHF (congestive heart failure) (20) Epistaxis Erlin Kearns Jul 05, 2020 10:03
[2020-07-05 12:00] VITALS: BP 130/64
[2020-07-05 16:00] VITALS: BP 123/59
--- NOTE | 2020-07-05 16:35 | General Progress Note ---
Subjective ROS Limited/Unobtainable: No Constitutional: Reports: malaise, weakness HEENT: Reports: no symptoms Cardiovascular: Reports: edema Respiratory: Reports: no symptoms Gastrointestinal/Abdominal: Reports: no symptoms Genitourinary: Reports: no symptoms Neurologic/Psychiatric: Reports: pre-existing deficit Endocrine: Reports: no symptoms Hematologic/Lymphatic: Reports: anemia Allergies: Coded Allergies: No Known Allergies (Verified , 01/23/09) All Systems: reviewed and negative except above Subjective no complaints. less confused. more alert. decreased edema. no fevers or chills. h/h trending up. on iv lasix. completed i abx. wants to go home Objective Last 24 Hour Vital Signs Date Time Temp Pulse Resp B/P (MAP) Pulse Ox O2 Delivery O2 Flow Rate FiO2 07/05/20 12:00 60 07/05/20 12:00 97.9 75 20 130/64 (86) 93 07/05/20 11:43 Nasal Cannula 2.0 07/05/20 08:00 60 07/05/20 08:00 97.5 60 20 122/57 (78) 94 07/05/20 05:21 97.7 07/05/20 04:00 64 07/05/20 03:49 97.7 63 19 153/90 (111) 100 07/05/20 00:15 97.9 60 18 122/66 (84) 100 07/05/20 00:00 60 07/04/20 21:16 97.9 07/04/20 21:00 Nasal Cannula 2.0 07/04/20 20:00 97.9 60 19 108/50 (69) 100 07/04/20 20:00 64 Intake and Output 07/04/20 07/05/20 19:00 07:00 Intake Total 100 ml 560 ml Output Total 600 ml 1000 ml Balance -500 ml -440 ml Intake Oral 100 ml 300 ml Other 260 ml Output Urine Total 600 ml 1000 ml # Bowel Movements 1 Laboratory Tests 07/05/20 04:55: White Blood Count 6.6, Red Blood Count 2.69L, Hemoglobin 6.4*L, Hematocrit 23.2L , Mean Corpuscular Volume 86, Mean Corpuscular Hemoglobin 23.9L, Mean Corpuscular Hemoglobin Concent 27.7L, Red Cell Distribution Width 26.9H, Platelet Count 174, Mean Platelet Volume 6.6, Neutrophils (%) (Auto) , Lymphocytes (%) (Auto) , Monocytes (%) (Auto) , Eosinophils (%) (Auto) , Basophils (%) (Auto) , Differential Total Cells Counted 100, Neutrophils % (Manual) 73, Lymphocytes % (Manual) 14L, Monocytes % (Manual) 8, Eosinophils % (Manual) 5H, Basophils % (Manual) 0, Band Neutrophils 0, Platelet Estimate Adequate, Platelet Morphology Normal, Polychromasia 1+, Hypochromasia 2+, Anisoc ytosis 3+, Acanthocytes Occasional, Schistocytes 1+, Sodium Level 141, Potassium Level 3.6, Chloride Level 107, Carbon Dioxide Level 27, Anion Gap 7, Blood Urea Nitrogen 24H, Creatinine 1.4H, Estimat Glomerular Filtration Rate 58.5, Glucose Level 93, Calcium Level 10.0, Total Bilirubin 2.3H, Direct Bilirubin 1.1H, Aspartate Amino Transf (AST/SGOT) 27, Alanine Aminotransferase (ALT/SGPT) 11L, Alkaline Phosphatase 73, Total Protein 7.0, Albumin 2.6L, Globulin 4.4, Albumin/Globulin Ratio 0.6L Height (Feet): 6 Height (Inches): 2.00 Weight (Pounds): 204 Objective General Appearance: WD/WN, alert, confused EENT: normal ENT inspection Neck: normal alignment, supple Cardiovascular: normal rate, regular rhythm Respiratory/Chest: chest wall non-tender, lungs clear, normal breath sounds, no respiratory distress, no accessory muscle use Abdomen: normal bowel sounds, non tender, soft, no organomegaly Edema: 3+ Pedal (L), 3+ Pedal (R) Edema: severe edema Neurologic: airport ramp agent II-XII 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, alert, responsive Skin: normal pigmentation, warm/dry Assessment/Plan Problem List: (1) Acute exacerbation of CHF (congestive heart failure) (2) Swelling of lower extremity ICD Codes: M79.89 - Other specified soft tissue disorders SNOMED: 111200310, 219258139 (3) Orthopnea (4) CHF (congestive heart failure) ICD Codes: I50.9 - CHF (congestive heart failure) SNOMED: 46541320 (5) Atrial fibrillation ICD Codes: I48.91 - Atrial fibrillation SNOMED: 16965491 (6) Anemia ICD Codes: D64.9 - Anemia, unspecified SNOMED: 180496735 (7) Elevated troponin ICD Codes: R74.8 - Elevated troponin SNOMED: 794999256 Status: stable, progressing Assessment/Plan: IV diuresis Elevate legs Monitor renal function and lytes with diuresis Continue Epogen and iron supplements refusing transfusion- pt jehovahs witness completed abx for uti Monitor for bleeding IV proton pump inhibitors follow up labs Sumit Hallman MD Jul 05, 2020 16:35
--- NOTE | 2020-07-05 17:05 | Cardiology Progress Note ---
Subjective DATE OF SERVICE: Jul 05, 2020 Feels weak, but denies CP. No SOB in bedbound state; mobilization OOB planned today No N/V/D or pain. Appetite fair. Hemoglobin dropped from 6.8 to 6.0 yesterday, and back to 6.4 today; no signs of GI blood loss. All discussed with patient's Lauren, yesterday. Objective Last 24 Hour Vital Signs Date Time Temp Pulse Resp B/P (MAP) Pulse Ox O2 Delivery O2 Flow Rate FiO2 07/05/20 12:00 60 07/05/20 12:00 97.9 75 20 130/64 (86) 93 07/05/20 11:43 Nasal Cannula 2.0 07/05/20 08:00 60 07/05/20 08:00 97.5 60 20 122/57 (78) 94 07/05/20 05:21 97.7 07/05/20 04:00 64 07/05/20 03:49 97.7 63 19 153/90 (111) 100 07/05/20 00:15 97.9 60 18 122/66 (84) 100 07/05/20 00:00 60 07/04/20 21:16 97.9 07/04/20 21:00 Nasal Cannula 2.0 07/04/20 20:00 97.9 60 19 108/50 (69) 100 07/04/20 20:00 64 HEENT: normal ENT inspection RHYTHM: Afib, other - demand Ventric pacing LUNGS: diminished breath sounds CARDIAC: normal rate, normal S1 and S2, irregularly irregular, systolic murmur - 1/6 apical systolic murmur ABDOMEN: normal bowel sounds EXTREMITIES: normal range of motion, +3 edema Laboratory Tests Test 07/05/20 04:55 White Blood Count 6.6 K/UL (4.8-10.8) Red Blood Count 2.69 M/UL (4.70-6.10) L Hemoglobin 6.4 G/DL (14.2-18.0) *L Hematocrit 23.2 % (42.0-52.0) L Mean Corpuscular Volume 86 FL (80-99) Mean Corpuscular Hemoglobin 23.9 PG (27.0-31.0) L Mean Corpuscular Hemoglobin Concent 27.7 G/DL (32.0-36.0) L Red Cell Distribution Width 26.9 % (11.6-14.8) H Platelet Count 174 K/UL (150-450) Mean Platelet Volume 6.6 FL (6.5-10.1) Neutrophils (%) (Auto) % (45.0-75.0) Lymphocytes (%) (Auto) % (20.0-45.0) Monocytes (%) (Auto) % (1.0-10.0) Eosinophils (%) (Auto) % (0.0-3.0) Basophils (%) (Auto) % (0.0-2.0) Differential Total Cells Counted 100 Neutrophils % (Manual) 73 % (45-75) Lymphocytes % (Manual) 14 % (20-45) L Monocytes % (Manual) 8 % (1-10) Eosinophils % (Manual) 5 % (0-3) H Basophils % (Manual) 0 % (0-2) Band Neutrophils 0 % (0-8) Platelet Estimate Adequate Platelet Morphology Normal Polychromasia 1+ Hypochromasia 2+ Anisocytosis 3+ Acanthocytes Occasional Schistocytes 1+ Sodium Level 141 MMOL/L (136-145) Potassium Level 3.6 MMOL/L (3.5-5.1) Chloride Level 107 MMOL/L (98-107) Carbon Dioxide Level 27 MMOL/L (21-32) Anion Gap 7 mmol/L (5-15) Blood Urea Nitrogen 24 mg/dL (7-18) H Creatinine 1.4 MG/DL (0.55-1.30) H Estimat Glomerular Filtration Rate 58.5 mL/min (>60) Glucose Level 93 MG/DL (74-106) Calcium Level 10.0 MG/DL (8.5-10.1) Total Bilirubin 2.3 MG/DL (0.2-1.0) H Direct Bilirubin 1.1 MG/DL (0.0-0.3) H Aspartate Amino Transf (AST/SGOT) 27 U/L (15-37) Alanine Aminotransferase (ALT/SGPT) 11 U/L (12-78) L Alkaline Phosphatase 73 U/L (46-116) Total Protein 7.0 G/DL (6.4-8.2) Albumin 2.6 G/DL (3.4-5.0) L Globulin 4.4 g/dL Albumin/Globulin Ratio 0.6 (1.0-2.7) L Assessment/Plan Assessment/Plan Severe anemia GI bleed Jehovahs witness Ac/chr diastolic CHF PAFib Pacemaker Hx thoracic aorta repair Elev LFT's may be due to passive congestion COPD Conjunctivitis Abd pain Ac/chr renal failure - improved Diuresis with caution O2 suppl IV iron and sq EPO Titrate anti-failure rx No aspirin or anticoag rx; off NSAID's Topical abx Reassess for endoscopy - not stable to defer after discharge. Ptx for mobilization Discussed with , Lauren x 20 yesterday evening. Yvan Encarnacion MD Jul 05, 2020 17:05
--- NOTE | 2020-07-05 19:35 | NUR ---
NURSE HAND-OFF REPORT: Important Events on Shift: Patient's hemoglobin increased to 6.4. Wound care performed. Patient Status: In no apparent distress. Diet: Clear liquid. Pending Orders: N/A Pending Results/Labs:am labs. Pending MD notification:N/A Latest Vital Signs: Temperature 97.9 , Pulse 67 , B/P 123 /59 , Respiratory Rate 20 , O2 SAT 100 , , O2 Flow Rate 2.0 . Vital Sign Comment: N/A EKG Rhythm: A-Paced Rhythm change?: N MD Notified?: - MD Response: Latest [place] Fall Score: 50 Fall Risk: High Risk Safety Measures: Call light Within Reach, Bed Alarm Zone 1, Side Rails Side Rails x2, Bed position Low and Locked. Fall Precautions: Yellow Socks Report given to Connor Ramirez RN.
--- NOTE | 2020-07-05 19:40 | NUR ---
NURSE NOTES: Patient received from JENNIFER Pope. Patient is wake, alert and oriented x 4. Patient is on 2 L nasal cannula with no signs of acute respiratory depression. Patient has no complaints as of the moment. Patient has an IV on his right forearm 22 gauge, saline locked. Bed is in the lowest position, call light within reach. Will continue to monitor.
[2020-07-05 20:00] VITALS: BP 132/61
[2020-07-05] MEDS: Dyna-Hex 2% Top Sol 2oz TOPIC SCH (21:01)
[2020-07-05] MEDS: Atorvastatin 20mg tab ORAL SCH (21:02)
[2020-07-06] VITALS: BP 132/62
[2020-07-06 04:00] VITALS: BP 124/59
--- NOTE | 2020-07-06 07:47 | NUR ---
NURSE HAND-OFF REPORT: Important Events on Shift:[Wound pictures taken] Patient Status: [Stable] Diet: [Clear liquid diet] Pending Orders: [] Pending Results/Labs:[] Pending MD notification:[] Latest Vital Signs: Temperature 98.1 , Pulse 62 , B/P 124 /59 , Respiratory Rate 18 , O2 SAT 100 , , O2 Flow Rate 2.0 . Vital Sign Comment: [] EKG Rhythm: SR w/ 1st degree AVB Rhythm change?: N MD Notified?: N - MD Response: Latest [place]roe Fall Score: 50 Fall Risk: High Risk Safety Measures: Call light Within Reach, Bed Alarm Zone 1, Side Rails Side Rails x2, Bed position Low and Locked. Fall Precautions: Yellow Socks Report given to [JENNIFER Baltazar].
[2020-07-06 08:00] VITALS: BP 136/65
[2020-07-06 08:35] LABS: HEMATOCRIT 23.2 % (42.0-52.0); HEMOGLOBIN 6.5 G/DL (14.2-18.0); MEAN CORPUSCULAR VOLUME 84 FL (80-99); PLATELET COUNT 200 K/UL (150-450); RED BLOOD COUNT 2.76 M/UL (4.70-6.10); RED CELL DISTRIBUTION WIDTH 26.4 % (11.6-14.8); WHITE BLOOD COUNT 6.9 K/UL (4.8-10.8)
--- NOTE | 2020-07-06 08:38 | General Progress Note ---
Subjective ROS Limited/Unobtainable: Yes Allergies: Coded Allergies: No Known Allergies (Verified , 01/23/09) Objective Last 24 Hour Vital Signs Date Time Temp Pulse Resp B/P (MAP) Pulse Ox O2 Delivery O2 Flow Rate FiO2 07/06/20 04:00 98.1 77 18 124/59 (80) 100 07/06/20 04:00 62 07/06/20 00:00 62 07/06/20 00:00 99.9 62 20 132/62 (85) 95 07/05/20 21:00 Nasal Cannula 2.0 07/05/20 20:00 99.1 59 18 132/61 (84) 100 07/05/20 20:00 65 07/05/20 16:49 97.9 07/05/20 16:00 97.5 65 20 123/59 (80) 100 07/05/20 16:00 67 07/05/20 12:00 60 07/05/20 12:00 97.9 75 20 130/64 (86) 93 07/05/20 11:43 Nasal Cannula 2.0 Intake and Output 07/05/20 07/06/20 19:00 07:00 Intake Total 400 ml 240 ml Output Total 1400 ml Balance -1000 ml 240 ml Intake Oral 400 ml 240 ml Output Urine Total 1400 ml # Voids 2 # Bowel Movements 3 Laboratory Tests 07/06/20 07:25: White Blood Count 6.9, Red Blood Count 2.76L, Hemoglobin 6.5*L, Hematocrit 23.2L , Mean Corpuscular Volume 84, Mean Corpuscular Hemoglobin 23.5L, Mean Corpuscular Hemoglobin Concent 27.9L, Red Cell Distribution Width 26.4H, Platelet Count 200, Mean Platelet Volume 7.5, Neutrophils (%) (Auto) , Lymphocytes (%) (Auto) , Monocytes (%) (Auto) , Eosinophils (%) (Auto) , Basophils (%) (Auto) , Neutrophils % (Manual) [Pending], Lymphocytes % (Manual) [Pending], Platelet Estimate [Pending], Platelet Morphology [Pending] Height (Feet): 6 Height (Inches): 2.00 Weight (Pounds): 204 General Appearance: no apparent distress EENT: normal ENT inspection Neck: normal alignment Cardiovascular: normal rate Respiratory/Chest: decreased breath sounds Abdomen: hypoactive bowel sounds Extremities: non-tender Assessment/Plan Status: stable, progressing Assessment/Plan: Assessment/Plan: Assessment - Iron deficiency anemia - Jehovas, declines transfusion - lower abdominal TTP, ? etiology - b/l edema and anasarca - improved - azotemia - improving - CHF - COPD - CHF Recommendations - EPO - IV Iron - check CT abd/pelvis --> anasarca, diverticulosis - PPI - EGD/Colon once H&H adequately improved--> can be done as outpatient if discharged Dhaval Campbell MD Jul 06, 2020 08:38
[2020-07-06] MEDS: Gentamicin 0.3% Opth Soln 5ml BOTH EYES SCH (09:00)
[2020-07-06] MEDS: Tamsulosin 0.4mg cap ORAL SCH (09:43)
[2020-07-06] MEDS: Amiodarone 200mg tab ORAL SCH (09:44)
[2020-07-06] MEDS: Ascorbic Acid 500mg tab ORAL SCH ×2 (09:44→18:24)
[2020-07-06] MEDS: Spironolactone 25mg tab ORAL SCH (09:46)
--- NOTE | 2020-07-06 11:04 | General Progress Note ---
Subjective ROS Limited/Unobtainable: No Constitutional: Reports: malaise, weakness HEENT: Reports: no symptoms Cardiovascular: Reports: no symptoms Respiratory: Reports: cough Gastrointestinal/Abdominal: Reports: no symptoms Genitourinary: Reports: no symptoms Neurologic/Psychiatric: Reports: no symptoms Endocrine: Reports: no symptoms Hematologic/Lymphatic: Reports: anemia Allergies: Coded Allergies: No Known Allergies (Verified , 01/23/09) All Systems: reviewed and negative except above Subjective no complaints. less confused. more alert. decreased edema. no fevers or chills. h/h trending up. on iv lasix. completed abx. wants to go home speech slightly slurred. no focal weakness Objective Last 24 Hour Vital Signs Date Time Temp Pulse Resp B/P (MAP) Pulse Ox O2 Delivery O2 Flow Rate FiO2 07/06/20 08:00 97.6 62 20 136/65 (88) 98 07/06/20 04:00 98.1 77 18 124/59 (80) 100 07/06/20 04:00 62 07/06/20 00:00 62 07/06/20 00:00 99.9 62 20 132/62 (85) 95 07/05/20 21:00 Nasal Cannula 2.0 07/05/20 20:00 99.1 59 18 132/61 (84) 100 07/05/20 20:00 65 07/05/20 16:49 97.9 07/05/20 16:00 97.5 65 20 123/59 (80) 100 07/05/20 16:00 67 07/05/20 12:00 60 07/05/20 12:00 97.9 75 20 130/64 (86) 93 07/05/20 11:43 Nasal Cannula 2.0 Intake and Output 07/05/20 07/06/20 19:00 07:00 Intake Total 400 ml 240 ml Output Total 1400 ml Balance -1000 ml 240 ml Intake Oral 400 ml 240 ml Output Urine Total 1400 ml # Voids 2 # Bowel Movements 3 Laboratory Tests 07/06/20 07:25: White Blood Count 6.9, Red Blood Count 2.76L, Hemoglobin 6.5*L, Hematocrit 23.2L , Mean Corpuscular Volume 84, Mean Corpuscular Hemoglobin 23.5L, Mean Corpuscular Hemoglobin Concent 27.9L, Red Cell Distribution Width 26.4H, Platelet Count 200, Mean Platelet Volume 7.5, Neutrophils (%) (Auto) , Lympho cytes (%) (Auto) , Monocytes (%) (Auto) , Eosinophils (%) (Auto) , Basophils (%) (Auto) , Differential Total Cells Counted 100, Neutrophils % (Manual) 71, Lymphocytes % (Manual) 18L, Monocytes % (Manual) 6, Eosinophils % (Manual) 5H, Basophils % (Manual) 0, Band Neutrophils 0, Platelet Estimate Adequate, Platelet Morphology Normal, Polychromasia 1+, Hypochromasia 2+, Anisocytosis 3+, Target Cells Occasional, Acanthocytes Occasional, Schistocytes 1+ Height (Feet): 6 Height (Inches): 2.00 Weight (Pounds): 204 Objective General Appearance: WD/WN, alert, confused EENT: normal ENT inspection Neck: normal alignment, supple Cardiovascular: normal rate, regular rhythm Respiratory/Chest: chest wall non-tender, lungs clear, normal breath sounds, no respiratory distress, no accessory muscle use Abdomen: normal bowel sounds, non tender, soft, no organomegaly Edema: 3+ Pedal (L), 3+ Pedal (R) Edema: severe edema Neurologic: office communication professor II-XII 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, alert, responsive Skin: normal pigmentation, warm/dry Assessment/Plan Problem List: (1) Acute exacerbation of CHF (congestive heart failure) (2) Swelling of lower extremity ICD Codes: M79.89 - Other specified soft tissue disorders SNOMED: 981481731, 762132755 (3) Orthopnea (4) CHF (congestive heart failure) ICD Codes: I50.9 - CHF (congestive heart failure) SNOMED: 01627019 (5) Atrial fibrillation ICD Codes: I48.91 - Atrial fibrillation SNOMED: 85584246 (6) Anemia ICD Codes: D64.9 - Anemia, unspecified SNOMED: 459192626 (7) Elevated troponin ICD Codes: R74.8 - Elevated troponin SNOMED: 888670287 Status: stable, progressing Assessment/Plan: diuresis Elevate legs Monitor renal function and lytes with diuresis Continue Epogen and iron supplements refusing transfusion- pt jehovahs witness completed abx for uti Monitor for bleeding IV proton pump inhibitors follow up labs EGD when stable probably needs snf Sumit Hallman MD Jul 06, 2020 11:04
[2020-07-06 12:00] VITALS: BP 127/64
--- NOTE | 2020-07-06 13:01 | Surgery Progress Note ---
Surgery Progress Note Subjective Symptoms: improved, tolerating diet, passing flatus Objective Last 24 Hour Vital Signs Date Time Temp Pulse Resp B/P (MAP) Pulse Ox O2 Delivery O2 Flow Rate FiO2 07/06/20 09:00 Room Air 07/06/20 08:00 97.6 62 20 136/65 (88) 98 07/06/20 04:00 98.1 77 18 124/59 (80) 100 07/06/20 04:00 62 07/06/20 00:00 62 07/06/20 00:00 99.9 62 20 132/62 (85) 95 07/05/20 21:00 Nasal Cannula 2.0 07/05/20 20:00 99.1 59 18 132/61 (84) 100 07/05/20 20:00 65 07/05/20 16:49 97.9 07/05/20 16:00 97.5 65 20 123/59 (80) 100 07/05/20 16:00 67 I&O Intake and Output 07/05/20 07/06/20 19:00 07:00 Intake Total 400 ml 240 ml Output Total 1400 ml Balance -1000 ml 240 ml Intake Oral 400 ml 240 ml Output Urine Total 1400 ml # Voids 2 # Bowel Movements 3 Dressing: saturated Cardiovascular: RSR Respiratory: decreased breath sounds Abdomen: soft, flat, non-tender, present bowel sounds, non-distended Extremities: no edema, no tenderness, no cyanosis Laboratory Tests Test 07/06/20 07:25 White Blood Count 6.9 K/UL (4.8-10.8) Red Blood Count 2.76 M/UL (4.70-6.10) L Hemoglobin 6.5 G/DL (14.2-18.0) *L Hematocrit 23.2 % (42.0-52.0) L Mean Corpuscular Volume 84 FL (80-99) Mean Corpuscular Hemoglobin 23.5 PG (27.0-31.0) L Mean Corpuscular Hemoglobin Concent 27.9 G/DL (32.0-36.0) L Red Cell Distribution Width 26.4 % (11.6-14.8) H Platelet Count 200 K/UL (150-450) Mean Platelet Volume 7.5 FL (6.5-10.1) Neutrophils (%) (Auto) % (45.0-75.0) Lymphocytes (%) (Auto) % (20.0-45.0) Monocytes (%) (Auto) % (1.0-10.0) Eosinophils (%) (Auto) % (0.0-3.0) Basophils (%) (Auto) % (0.0-2.0) Differential Total Cells Counted 100 Neutrophils % (Manual) 71 % (45-75) Lymphocytes % (Manual) 18 % (20-45) L Monocytes % (Manual) 6 % (1-10) Eosinophils % (Manual) 5 % (0-3) H Basophils % (Manual) 0 % (0-2) Band Neutrophils 0 % (0-8) Platelet Estimate Adequate Platelet Morphology Normal Polychromasia 1+ Hypochromasia 2+ Anisocytosis 3+ Target Cells Occasional Acanthocytes Occasional Schistocytes 1+ Plan Problems: (1) Anemia (2) Chronic obstructive pulmonary disease (3) Sacral decubitus ulcer Assessment & Plan: Pt presented on admission with multiple Pressure Injuries. Sacral Pressure Injury resolving(L)1.5cm x (W)0.5cm. Base of wound is pink with maceration. Multiple Ulcerations at base of Scrotum . Wounds are resolving(#1) Full thickness Pressure Injury base of wound resolving. Base of wound is 50% mihai 50% pink epithelial(L)2cm x (W)1.2cm. Edges are adherent to base of wound. NO exudate noted. (#2)Wound R testicle resolving. [place] epithelial at base of wound. No exudate noted (L)2cm x (W)1.2cm. (#3)Wound that is proximally to above documented wounds is also resolving(L)1cm x (W)1cm. Base of wound is 25% mihai ,75% surrounding pink epithelial.. L Heel has resolved. Heel is boggy but blanchable and non-tender when palpated R heel has resolved. R heel is boggy but blanchable and non-tender when palpated. Pt is frequently and heavily incontinent of Bladder. place urinary pouch to minimize further skin breakdown from incontinence. Pt is well endowed and unable to place urinary pouch. Ok to improvise with Fecal pouch to contain incontine nce. Fecal pouch in place and attached to drainage bag. DAILY ESTIMATED NEEDS: Needs based on Cardiac, wound 88kg abw 25-35 kcals/kg 1506-4889 total kcals 1.25-1.5 g protein/kg 110-132 g total protein Fluid per MD, on lasix NUTRITION DIAGNOSIS: Increased kcal and pro needs r/t wound healing as evidenced by w/ full thickness scrotal wound, refer to full wound care eval. CURRENT DIET:cardiac PO DIET RECOMMENDATIONS: Liberalized Regular diet/ texture as tolerated w/ variable po intake ADDITIONAL RECOMMENDATIONS: 1)CALIBRATED BED SCALE wt 2) On lasix, monitor lytes daily 3) 1:1 feeds 4) Texture per C PYTHON DEVELOPER 5) Add ENSURE ENLIVE BID BID in b/w meal s 6) WOUND CARE: Add VIT C 500mg BID + MVI w/ min x1 daily + KELLEY BID (4) PNA (pneumonia) (5) Elevated troponin (6) UTI (lower urinary tract infection) (7) Acute exacerbation of CHF (congestive heart failure) (8) UTI (lower urinary tract infection) (9) Atrial fibrillation (10) CHF (congestive heart failure) (11) Orthopnea (12) Dyspnea on exertion (13) Swelling of lower extremity (14) Generalized ischemic cerebrovascular disease (15) acute onset left [place] pulsy. (16) Hemoptysis (17) Stroke (18) COPD exacerbation (19) Acute exacerbation of CHF (congestive heart failure) (20) Epistaxis Erlin Kearns Jul 06, 2020 13:01
[2020-07-06 16:00] VITALS: BP 110/56
--- NOTE | 2020-07-06 19:32 | NUR ---
NURSE HAND-OFF REPORT: Important Events on Shift:[] Patient Status: []STABLE Diet: []cardiet Pending Orders: [] Pending Results/Labs:[] Pending MD notification:[] Latest Vital Signs: Temperature 97.7 , Pulse 60 , B/P 110 /56 , Respiratory Rate 20 , O2 SAT 98 , , O2 Flow Rate 2.0 . Vital Sign Comment: [] EKG Rhythm: A-Paced Rhythm change?: N MD Notified?: N - MD Response: Latest [place] Fall Score: 50 Fall Risk: High Risk Safety Measures: Call light Within Reach, Bed Alarm Zone 1, Side Rails Side Rails x2, Bed position Low and Locked. Fall Precautions: Yellow Socks Report given to [].SHYANN HAMMONDS RN
--- NOTE | 2020-07-06 19:35 | NUR ---
NURSE NOTES: Patient received from JENNIFER Baltazar. Patient is awake, alert and oriented x 4. Patient is very talkative, complaining of headache and asking for pain medication. Will tend to his needs. Patient is on 2 L Nasal cannula with no signs of acute respiratory distress noted. Patient has a right forearm IV 22 gauge saline locked. Bed is in the lowest position and locked, call light within reach will continue to monitor.
[2020-07-06] MEDS: Dyna-Hex 2% Top Sol 2oz TOPIC SCH (19:51)
[2020-07-06 20:00] VITALS: BP 127/61
--- NOTE | 2020-07-06 20:00 | NUR ---
NURSE NOTES: Patient still complaining of headache and pain on his left rib. Requesting for a stronger pain medication. Notified and left a message to Dr. Encarnacion. Waiting for call back.
[2020-07-06] MEDS: Epoetin Alfa-EPBX (NON ESRD)10,000 unit/ml vial SUBQ SCH (20:40)
[2020-07-06] MEDS: Atorvastatin 20mg tab ORAL SCH (20:41)
--- NOTE | 2020-07-06 22:24 | Cardiology Progress Note ---
Subjective DATE OF SERVICE: Jul 06, 2020 C/o headache and back pain. No CP. No SOB in bedbound state; mobilization OOB planned today No N/V/D or pain. Appetite fair. Hemoglobin dropped from 6.8 to 6.0 on 07/04, and back to 6.5 today; no signs of GI blood loss. Objective Last 24 Hour Vital Signs Date Time Temp Pulse Resp B/P (MAP) Pulse Ox O2 Delivery O2 Flow Rate FiO2 07/06/20 20:00 97.9 69 18 127/61 (83) 98 07/06/20 20:00 65 07/06/20 16:00 97.7 61 20 110/56 (74) 98 07/06/20 16:00 60 07/06/20 12:00 64 07/06/20 12:00 97.6 20 127/64 (85) 64 07/06/20 09:00 Room Air 07/06/20 08:00 97.6 62 20 136/65 (88) 98 07/06/20 08:00 64 07/06/20 04:00 98.1 77 18 124/59 (80) 100 07/06/20 04:00 62 07/06/20 00:00 62 07/06/20 00:00 99.9 62 20 132/62 (85) 95 HEENT: normal ENT inspection RHYTHM: Afib, other - demand Ventric pacing LUNGS: diminished breath sounds CARDIAC: normal rate, normal S1 and S2, irregularly irregular, systolic murmur - 1/6 apical systolic murmur ABDOMEN: normal bowel sounds EXTREMITIES: normal range of motion, +3 edema Laboratory Tests Test 07/06/20 07:25 White Blood Count 6.9 K/UL (4.8-10.8) Red Blood Count 2.76 M/UL (4.70-6.10) L Hemoglobin 6.5 G/DL (14.2-18.0) *L Hematocrit 23.2 % (42.0-52.0) L Mean Corpuscular Volume 84 FL (80-99) Mean Corpuscular Hemoglobin 23.5 PG (27.0-31.0) L Mean Corpuscular Hemoglobin Concent 27.9 G/DL (32.0-36.0) L Red Cell Distribution Width 26.4 % (11.6-14.8) H Platelet Count 200 K/UL (150-450) Mean Platelet Volume 7.5 FL (6.5-10.1) Neutrophils (%) (Auto) % (45.0-75.0) Lymphocytes (%) (Auto) % (20.0-45.0) Monocytes (%) (Auto) % (1.0-10.0) Eosinophils (%) (Auto) % (0.0-3.0) Basophils (%) (Auto) % (0.0-2.0) Differential Total Cells Counted 100 Neutrophils % (Manual) 71 % (45-75) Lymphocytes % (Manual) 18 % (20-45) L Monocytes % (Manual) 6 % (1-10) Eosinophils % (Manual) 5 % (0-3) H Basophils % (Manual) 0 % (0-2) Band Neutrophils 0 % (0-8) Platelet Estimate Adequate Platelet Morphology Normal Polychromasia 1+ Hypochromasia 2+ Anisocytosis 3+ Target Cells Occasional Acanthocytes Occasional Schistocytes 1+ Assessment/Plan Assessment/Plan Severe anemia GI bleed Jehovahs witness Ac/chr diastolic CHF now compensated PAFib Pacemaker Hx thoracic aorta repair Elev LFT's may be due to passive congestion COPD Conjunctivitis Abd pain Ac/chr renal failure - improved Add hydrocodone prn for back pain and CROSS Diuresis now switched to maint oral dose O2 suppl IV iron and sq EPO Titrate anti-failure rx No aspirin or anticoag rx; off NSAID's Topical abx Reassess for endoscopy - not stable to defer after discharge. Ptx for mobilization Discussed with , Lauren x 20 yesterday evening. Yvan Encarnacion MD Jul 06, 2020 22:24
[2020-07-07] VITALS: BP 127/64
[2020-07-07] MEDS: HYDROcodone/Acetamin 5/325 tab ORAL PRN ×2 (00:11→15:48)
[2020-07-07 04:00] VITALS: BP 159/57
--- NOTE | 2020-07-07 07:49 | NUR ---
NURSE HAND-OFF REPORT: Important Events on Shift:[Patient complained of headache unresolved by Tylenol. Notified Dr. Encarnacion, ordered to give [place] for moderate to severe pain] Patient Status: [Stable] Diet: [Clear liquid diet] Pending Orders: [] Pending Results/Labs:[] Pending MD notification:[] Latest Vital Signs: Temperature 98.1 , Pulse 60 , B/P 159 /57 , Respiratory Rate 16 , O2 SAT 100 , , O2 Flow Rate 2.0 . Vital Sign Comment: [] EKG Rhythm: A-Paced Rhythm change?: N MD Notified?: N - MD Response: Latest [place] Fall Score: 50 Fall Risk: High Risk Safety Measures: Call light Within Reach, Bed Alarm Zone 1, Side Rails Side Rails x2, Bed position Low and Locked. Fall Precautions: Yellow Socks Report given to [JENNIFER Huffman].
[2020-07-07 08:00] VITALS: BP 115/56
[2020-07-07] MEDS: Amiodarone 200mg tab ORAL SCH (09:25)
[2020-07-07] MEDS: Spironolactone 25mg tab ORAL SCH (09:25)
[2020-07-07] MEDS: Ascorbic Acid 500mg tab ORAL SCH ×2 (09:25→18:25)
[2020-07-07] MEDS: Furosemide 40mg tab ORAL SCH (09:25)
[2020-07-07] MEDS: Tamsulosin 0.4mg cap ORAL SCH (09:25)
--- NOTE | 2020-07-07 11:01 | Surgery Progress Note ---
Surgery Progress Note Subjective Additional Comments h/h stable no complaints states he is well but seems confused today no n/v/f/c Objective Last 24 Hour Vital Signs Date Time Temp Pulse Resp B/P (MAP) Pulse Ox O2 Delivery O2 Flow Rate FiO2 07/07/20 08:00 60 07/07/20 04:00 98.1 60 16 159/57 (91) 100 07/07/20 04:00 60 07/07/20 00:00 64 07/07/20 00:00 97.6 64 22 127/64 (85) 100 07/06/20 21:00 Nasal Cannula 2.0 07/06/20 20:00 97.9 69 18 127/61 (83) 98 07/06/20 20:00 65 07/06/20 16:00 97.7 61 20 110/56 (74) 98 07/06/20 16:00 60 07/06/20 12:00 64 07/06/20 12:00 97.6 20 127/64 (85) 64 I&O Intake and Output 07/06/20 07/07/20 19:00 07:00 Intake Total 324 ml 120 ml Balance 324 ml 120 ml Intake Oral 324 ml 120 ml # Voids 4 # Bowel Movements 1 Dressing: dry Wound: clean Cardiovascular: RSR Respiratory: clear Abdomen: soft, non-tender, present bowel sounds, non-distended Extremities: no edema, no tenderness, no cyanosis Plan Problems: (1) Anemia (2) Chronic obstructive pulmonary disease (3) Sacral decubitus ulcer Assessment & Plan: Pt presented on admission with multiple Pressure Injuries. Sacral Pressure Injury resolving(L)1.5cm x (W)0.5cm. Base of wound is pink with maceration. Multiple Ulcerations at base of Scrotum . Wounds are resolving(#1) Full thickness Pressure Injury base of wound resolving. Base of wound is 50% mihai 50% pink epithelial(L)2cm x (W)1.2cm. Edges are adherent to base of wound. NO exudate noted. (#2)Wound R testicle resolving. [place] epithelial at base of wound. No exudate noted (L)2cm x (W)1.2cm. (#3)Wound that is proximally to above documented wounds is also resolving(L)1cm x (W)1cm. Base of wound is 25% mihai ,75% surrounding pink epithelial.. L Heel has resolved. Heel is boggy but blanchable and non-tender when palpated R heel has resolved. R heel is boggy but blanchable and non-tender when palpated. Pt is frequently and heavily incontinent of Bladder. place urinary pouch to minimize further skin breakdown from incontinence. Pt is well endowed and unable to place urinary pouch. Ok to improvise with Fecal pouch to contain incontinence. Fecal pouch in place and attached to drainage bag. DAILY ESTIMATED NEEDS: Needs based on Cardiac, wound 88kg abw 25-35 kcals/kg 9955-9044 total kcals 1.25-1.5 g protein/kg 110-132 g total protein Fluid per MD, on lasix NUTRITION DIAGNOSIS: Increased kcal and pro needs r/t wound healing as evidenced by w/ full thickness scrotal wound, refer to full wound care eval. CURRENT DIET:cardiac PO DIET RECOMMENDATIONS: Liberalized Regular diet/ texture as tolerated w/ variable po intake ADDITIONAL RECOMMENDATIONS: 1)CALIBRATED BED SCALE wt 2) On lasix, monitor lytes daily 3) 1:1 feeds 4) Texture per SERVICE STATION OPERATOR 5) Add ENSURE ENLIVE BID BID in b/w meal s 6) WOUND CARE: Add VIT C 500mg BID + MVI w/ min x1 daily + KELLEY BID (4) PNA (pneumonia) (5) Elevated troponin (6) UTI (lower urinary tract infection) (7) Acute exacerbation of CHF (congestive heart failure) (8) UTI (lower urinary tract infection) (9) Atrial fibrillation (10) CHF (congestive heart failure) (11) Orthopnea (12) Dyspnea on exertion (13) Swelling of lower extremity (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 (16) Hemoptysis (17) Stroke (18) COPD exacerbation (19) Acute exacerbation of CHF (congestive heart failure) (20) Epistaxis Erlin Kearns Jul 07, 2020 11:01
--- NOTE | 2020-07-07 11:22 | NUR ---
RD ASSESSMENT & RECOMMENDATIONS SEE CARE ACTIVITY FOR COMPLETE ASSESSMENT DAILY ESTIMATED NEEDS: Needs based on Cardiac, wound 88kg abw 25-35 kcals/kg 4367-2949 total kcals 1.25-1.5 g protein/kg 110-132 g total protein Fluid per MD, on lasix NUTRITION DIAGNOSIS: Increased kcal and pro needs r/t wound healing as evidenced by w/ full thickness scrotal wound, refer to full wound care eval. CURRENT DIET:CLEAR LIQUID DIET (SINCE 07/02) PO DIET RECOMMENDATIONS: Liberalized Regular diet/ texture as tolerated w/ variable po intake ADDITIONAL RECOMMENDATIONS: 1) CALIBRATED BED SCALE wt 2) On lasix, monitor lytes daily 3) Monitor for diet advancement- on CLD since 07/02 -> continue Ensure Clear TID w/ CLD; Ensure Enlive w/ advanced diet 4) FURNITURE REPRODUCER eval for appropriate texture w/ diet advancement 5) WOUND CARE: continue MVI and Vit C KELLEY BID added to tray
[2020-07-07 12:00] VITALS: BP 113/62
[2020-07-07 16:00] VITALS: BP 127/53
--- NOTE | 2020-07-07 16:38 | General Progress Note ---
Subjective ROS Limited/Unobtainable: No Constitutional: Reports: malaise, weakness HEENT: Reports: no symptoms Cardiovascular: Reports: edema Respiratory: Reports: shortness of breath Gastrointestinal/Abdominal: Reports: no symptoms Genitourinary: Reports: no symptoms Neurologic/Psychiatric: Reports: pre-existing deficit Endocrine: Reports: no symptoms Hematologic/Lymphatic: Reports: anemia Allergies: Coded Allergies: No Known Allergies (Verified , 01/23/09) All Systems: reviewed and negative except above Subjective No new complaints. Denies chest pain or shortness of breath. Mild cough. No reports of bleeding. On oral diuretic treatment. Hopeful to go home soon. Remains on PPI treatment. Objective Last 24 Hour Vital Signs Date Time Temp Pulse Resp B/P (MAP) Pulse Ox O2 Delivery O2 Flow Rate FiO2 07/07/20 12:00 60 07/07/20 12:00 97.7 62 20 113/62 (79) 97 07/07/20 08:00 60 07/07/20 08:00 97.7 61 20 115/56 (75) 96 07/07/20 04:00 98.1 60 16 159/57 (91) 100 07/07/20 04:00 60 07/07/20 00:00 64 07/07/20 00:00 97.6 64 22 127/64 (85) 100 07/06/20 21:00 Nasal Cannula 2.0 07/06/20 20:00 97.9 69 18 127/61 (83) 98 07/06/20 20:00 65 Intake and Output 07/06/20 07/07/20 19:00 07:00 Intake Total 324 ml 120 ml Balance 324 ml 120 ml Intake Oral 324 ml 120 ml # Voids 4 # Bowel Movements 1 Height (Feet): 6 Height (Inches): 2.00 Weight (Pounds): 204 Objective General Appearance: WD/WN, alert, confused EENT: normal ENT inspection Neck: normal alignment, supple Cardiovascular: normal rate, regular rhythm Respiratory/Chest: chest wall non-tender, lungs clear, normal breath sounds, no respiratory distress, no accessory muscle use Abdomen: normal bowel sounds, non tender, soft, no organomegaly Edema: 3+ Pedal (L), 3+ Pedal (R) Edema: severe edema Neurologic: travel service consultant II-XII 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, alert, responsive Skin: normal pigmentation, warm/dry Assessment/Plan Problem List: (1) Acute exacerbation of CHF (congestive heart failure) (2) Swelling of lower extremity ICD Codes: M79.89 - Other specified soft tissue disorders SNOMED: 102587173, 031156782 (3) Orthopnea (4) CHF (congestive heart failure) ICD Codes: I50.9 - CHF (congestive heart failure) SNOMED: 32785828 (5) Atrial fibrillation ICD Codes: I48.91 - Atrial fibrillation SNOMED: 28885584 (6) Anemia ICD Codes: D64.9 - Anemia, unspecified SNOMED: 567489729 (7) Elevated troponin ICD Codes: R74.8 - Elevated troponin SNOMED: 264260802 Status: stable, progressing Assessment/Plan: diuresis Elevate legs Monitor renal function and lytes with diuresis Continue Epogen and iron supplements refusing transfusion- pt jehovahs witness monitor labs as needed-try to avoid unnecessary lab draws Monitor for bleeding IV proton pump inhibitors follow up labs EGD when stable probably needs snf Sumit Hallman MD Jul 07, 2020 16:38
--- NOTE | 2020-07-07 19:15 | General Progress Note ---
Subjective Allergies: Coded Allergies: No Known Allergies (Verified , 01/23/09) Subjective no new complaints d/w staff genetic counselor H&H still low d/w patient re slow response to Iron and EPO advised will need to discharge him and re-admit for EGD/Colon advised will advance diet Objective Last 24 Hour Vital Signs Date Time Temp Pulse Resp B/P (MAP) Pulse Ox O2 Delivery O2 Flow Rate FiO2 07/07/20 16:18 97.7 07/07/20 16:00 60 07/07/20 12:00 60 07/07/20 12:00 97.7 62 20 113/62 (79) 97 07/07/20 08:00 60 07/07/20 08:00 97.7 61 20 115/56 (75) 96 07/07/20 04:00 98.1 60 16 159/57 (91) 100 07/07/20 04:00 60 07/07/20 00:00 64 07/07/20 00:00 97.6 64 22 127/64 (85) 100 07/06/20 21:00 Nasal Cannula 2.0 07/06/20 20:00 97.9 69 18 127/61 (83) 98 07/06/20 20:00 65 Intake and Output 07/06/20 07/07/20 19:00 07:00 Intake Total 324 ml 120 ml Balance 324 ml 120 ml Intake Oral 324 ml 120 ml # Voids 4 # Bowel Movements 1 Height (Feet): 6 Height (Inches): 2.00 Weight (Pounds): 204 Objective Patient evaluated using telehealth protocol Patient understood limitations and agreed to proceed. Assessment/Plan Status: stable, progressing Assessment/Plan: Assessment - Iron deficiency anemia - Jehovas, declines transfusion - lower abdominal TTP, ? etiology - b/l edema and anasarca - improved - azotemia - improved - CHF - COPD - CHF Recommendations - EPO - IV Iron - check CT abd/pelvis --> anasarca, diverticulosis - PPI - EGD/Colon once H&H adequately improved - OK from GI standpoint for discharge to SNF ---> can return as outpatient for EGD/Colon Jacob Deleon MD Jul 07, 2020 19:15
--- NOTE | 2020-07-07 19:19 | NUR ---
NURSE HAND-OFF REPORT: Important Events on Shift: turned patient every 2 hours, a-paced, v/s wnl Patient Status: full code, stable condition, discussed with patient Dr. Deleon intent to send patient to intermediate soon to stablize lab levels prior to proceeding with colonoscopy Diet: CARDIAC DIET Pending Orders: [] Pending Results/Labs:[] Pending MD notification:[] Latest Vital Signs: Temperature 97.9 , Pulse 73 , B/P 118 /88 , Respiratory Rate 16 , O2 SAT 95 , Room Air, O2 Flow Rate 2.0 . Vital Sign Comment: [] EKG Rhythm: Sinus Rhythm Rhythm change?: N MD Notified?: Y -Dr. Carolee KESSLER Response: Latest [place] Fall Score: 45 Fall Risk: High Risk Safety Measures: Call light Within Reach, Bed Alarm Zone 2, Side Rails Side Rails x2, Bed position Low and Locked. Fall Precautions: Yellow Socks Yellow Gown Door Sign Patient Fall Education Report given to JENNIFER Valera
--- NOTE | 2020-07-07 19:30 | NUR ---
NURSE NOTES: Received report & pt from Armida Toro RN. Pt in bed, a&ox3, on O2 via NC @ 2LPM. No s/s of acute distress & no c/o pain at this time. IV site intact & S/L'd. Bed in lowest position. Call light within reach. Plan of care discussed. Will continue to monitor.
[2020-07-07 20:00] VITALS: BP 115/63
[2020-07-07] MEDS: Dyna-Hex 2% Top Sol 2oz TOPIC SCH (20:13)
[2020-07-07] MEDS: Atorvastatin 20mg tab ORAL SCH (20:14)
[2020-07-08] VITALS: BP 133/62
--- NOTE | 2020-07-08 | NUR ---
NURSE NOTES: Pt asleep. In no acute distress. Turned & repositioned.
--- NOTE | 2020-07-08 01:50 | Cardiology Progress Note ---
Subjective DATE OF SERVICE: Jul 07, 2020 C/o headache and back pain. No CP. No SOB in bedbound state; mobilization OOB planned today No N/V/D or pain. Appetite fair. Hemoglobin dropped from 6.8 to 6.0 on 07/04, and back to 6.5 yesterday; no signs of GI blood loss. Very weak , but refuses a SNF. Objective Last 24 Hour Vital Signs Date Time Temp Pulse Resp B/P (MAP) Pulse Ox O2 Delivery O2 Flow Rate FiO2 07/08/20 00:00 60 07/08/20 00:00 98.4 68 18 133/62 (85) 97 07/07/20 21:00 Nasal Cannula 2.0 07/07/20 20:00 97.8 60 20 115/63 (80) 97 07/07/20 20:00 60 07/07/20 16:18 97.7 07/07/20 16:00 60 07/07/20 16:00 98.1 61 20 127/53 (77) 97 07/07/20 12:00 60 07/07/20 12:00 97.7 62 20 113/62 (79) 97 07/07/20 09:00 Nasal Cannula 2.0 07/07/20 08:00 60 07/07/20 08:00 97.7 61 20 115/56 (75) 96 07/07/20 04:00 98.1 60 16 159/57 (91) 100 07/07/20 04:00 60 HEENT: normal ENT inspection RHYTHM: Afib, other - demand Ventric pacing LUNGS: diminished breath sounds CARDIAC: normal rate, normal S1 and S2, irregularly irregular, systolic murmur - 1/6 apical systolic murmur ABDOMEN: normal bowel sounds EXTREMITIES: normal range of motion, +3 edema Assessment/Plan Assessment/Plan Severe anemia GI bleed Jehovahs witness Ac/chr diastolic CHF now compensated PAFib Pacemaker Hx thoracic aorta repair Elev LFT's may be due to passive congestion COPD Conjunctivitis Abd pain Ac/chr renal failure - improved Continue hydrocodone prn for back pain and CROSS Diuresis now switched to maint oral dose O2 suppl IV iron and sq EPO Titrate anti-failure rx No aspirin or anticoag rx; off NSAID's Topical abx Reassess for endoscopy - not stable to defer after discharge. Ptx for mobilization Discussed with , Lauren x 20 yesterday evening. Yvan Encarnacion MD Jul 08, 2020 01:50
[2020-07-08 04:00] VITALS: BP 120/59
--- NOTE | 2020-07-08 06:23 | NUR ---
NURSE HAND-OFF REPORT: Important Events on Shift:none Patient Status: stable Diet: cardiac Pending Orders: none Pending Results/Labs:none Pending MD notification:none Latest Vital Signs: Temperature 98.6 , Pulse 64 , B/P 120 /59 , Respiratory Rate 19 , O2 SAT 98 , , O2 Flow Rate 2.0 . Vital Sign Comment: none EKG Rhythm: A-Paced Rhythm change?: N MD Notified?: N - MD Response: Latest Munroe Fall Score: 50 Fall Risk: High Risk Safety Measures: Call light Within Reach, Bed Alarm Zone 1, Side Rails Side Rails x2, Bed position Low and Locked. Fall Precautions: Yellow Socks Yellow Gown Door Sign Patient Fall Education Report given to Kunal Liang RN.
--- NOTE | 2020-07-08 07:20 | NUR ---
NURSE NOTES: Received patient in bed. Awake, A/O x3. On 2 L NC, respirations unlabored. Patient denies pain. Bed low and locked, side rails up x2, call light within reach with return demonstration.
[2020-07-08 07:45] LABS: HEMATOCRIT 24.4 % (42.0-52.0); MEAN CORPUSCULAR VOLUME 85 FL (80-99); PLATELET COUNT 205 K/UL (150-450); RED BLOOD COUNT 2.86 M/UL (4.70-6.10); RED CELL DISTRIBUTION WIDTH 26.2 % (11.6-14.8); WHITE BLOOD COUNT 6.8 K/UL (4.8-10.8)
[2020-07-08 07:58] LABS: HEMOGLOBIN 6.8 G/DL (14.2-18.0)
[2020-07-08 08:00] VITALS: BP 108/56
[2020-07-08 08:14] LABS: CALCIUM 9.9 MG/DL (8.5-10.1); CREATININE 1.5 MG/DL (0.55-1.30); POTASSIUM 3.6 MMOL/L (3.5-5.1)
[2020-07-08] MEDS: Tamsulosin 0.4mg cap ORAL SCH (08:58)
[2020-07-08] MEDS: Amiodarone 200mg tab ORAL SCH (08:59)
[2020-07-08] MEDS: Ascorbic Acid 500mg tab ORAL SCH ×2 (08:59→17:02)
[2020-07-08] MEDS: Furosemide 40mg tab ORAL SCH (08:59)
[2020-07-08] MEDS: Spironolactone 25mg tab ORAL SCH (08:59)
[2020-07-08] MEDS: HYDROcodone/Acetamin 5/325 tab ORAL PRN ×3 (09:00→23:16)
--- NOTE | 2020-07-08 11:57 | NUR ---
PRIMER CHARGER NOTE SW met w/ pt and completed the home safety evaluation. Pt resides w/ his at [address] [place] [address]. Pt resides in a two story house. Pt uses a wheelchair and he is able to wheel by self. There are 4 steps to enter his house and pt reports he does not have any issue with such steps. PT reports hx of fall. Pt was unable to recall his last fall incident. Pt does not have a caregiver. Pt reports his assists w/ some ADLs and IADLs including cooking and bathing. Pt reports he would not consider short term rehab, but prefers home health. Pt provided verbal consent to contact his , Lauren Aly. SW spoke w/ pt's , Lauren and obtained information that pt receives [facility] 59.45hrs/mo and the caregiver provides assistance to pt. AMBROSE encouraged Lauren to contact [facility] SW to advocate for re-evaluation of service hours. She verbalized understanding. Lauren agrees pt returning home w/ service. Lauren reports pt received the service from [facility] in the past. Emergency contacts: Lauren Aly () [phone] and Nicole Ward (granddaughter) [phone]
[2020-07-08 12:00] VITALS: BP 109/54
--- NOTE | 2020-07-08 15:40 | General Progress Note ---
Subjective ROS Limited/Unobtainable: Yes Constitutional: Reports: malaise, weakness HEENT: Reports: no symptoms Cardiovascular: Reports: edema Respiratory: Reports: cough, SOB with excertion Gastrointestinal/Abdominal: Reports: no symptoms Genitourinary: Reports: no symptoms Neurologic/Psychiatric: Reports: no symptoms Endocrine: Reports: no symptoms Hematologic/Lymphatic: Reports: anemia Allergies: Coded Allergies: No Known Allergies (Verified , 01/23/09) All Systems: reviewed and negative except above Subjective No new complaints. resting. no distress. Denies chest pain or shortness of breath. lying flat. Mild cough. no sputum, No reports of bleeding. On oral diuretic treatment. Objective Last 24 Hour Vital Signs Date Time Temp Pulse Resp B/P (MAP) Pulse Ox O2 Delivery O2 Flow Rate FiO2 07/08/20 12:00 74 07/08/20 12:00 97.5 62 17 109/54 (72) 99 07/08/20 09:00 Nasal Cannula 2.0 07/08/20 08:00 97.9 63 17 108/56 (73) 100 07/08/20 08:00 61 07/08/20 04:00 64 07/08/20 04:00 98.6 82 19 120/59 (79) 98 07/08/20 00:00 60 07/08/20 00:00 98.4 68 18 133/62 (85) 97 07/07/20 21:00 Nasal Cannula 2.0 07/07/20 20:00 97.8 60 20 115/63 (80) 97 07/07/20 20:00 60 07/07/20 16:18 97.7 07/07/20 16:00 60 07/07/20 16:00 98.1 61 20 127/53 (77) 97 Intake and Output 07/07/20 07/08/20 19:00 07:00 Intake Total 200 ml 120 ml Output Total 800 ml Balance 200 ml -680 ml Intake Oral 200 ml 120 ml Other 800 ml # Voids 2 # Bowel Movements 1 Laboratory Tests 07/08/20 07:09: White Blood Count 6.8, Red Blood Count 2.86L, Hemoglobin 6.8*L, Hematocrit 24.4L , Mean Corpuscular Volume 85, Mean Corpuscular Hemoglobin 23.9L, Mean Corpuscular Hemoglobin Concent 28.0L, Red Cell Distribution Width 26.2H, Platelet Count 205, Mean Platelet Volume 7.3, Neutrophils (%) (Auto) , Lymphocytes (%) (Auto) , Monocytes (%) (Auto) , Eosinophils (%) (Auto) , Basophils (%) (Auto) , Differential Total Cells Counted 100, Neutrophils % (Manual) 79H, Lymphocytes % (Manual) 11L, Monocytes % (Manual) 9, Eosinophils % (Manual) 1, Basophils % (Manual) 0, Band Neutrophils 0, Platelet Estimate Adequate, Platelet Morphology Normal, Polychromasia 1+, Hypochromasia 2+, Anisocytosis 3+, Target Cells Occasional, Acanthocytes Occasional, Schistocytes 1+, Sodium Level 143, Potassium Level 3.6, Chloride Level 109H, Carbon Dioxide Level 27, Anion Gap 7, Blood Urea Nitrogen 21H, Creatinine 1.5H, Estimat Glomerular Filtration Rate 54.1, Glucose Level 79, Calcium Level 9.9, Magnesium Level 1.6L, Pro-B-Type Natriuretic Peptide 5076H Height (Feet): 6 Height (Inches): 2.00 Weight (Pounds): 204 Objective General Appearance: WD/WN, alert, confused EENT: normal ENT inspection Neck: normal alignment, supple Cardiovascular: normal rate, regular rhythm Respiratory/Chest: chest wall non-tender, lungs clear, normal breath sounds, no respiratory distress, no accessory muscle use Abdomen: normal bowel sounds, non tender, soft, no organomegaly Edema: 3+ Pedal (L), 3+ Pedal (R) Edema: severe edema 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, alert, responsive Skin: normal pigmentation, warm/dry Assessment/Plan Problem List: (1) Acute exacerbation of CHF (congestive heart failure) (2) Swelling of lower extremity ICD Codes: M79.89 - Other specified soft tissue disorders SNOMED: 486812219, 189470609 (3) Orthopnea (4) CHF (congestive heart failure) ICD Codes: I50.9 - CHF (congestive heart failure) SNOMED: 54631361 (5) Atrial fibrillation ICD Codes: I48.91 - Atrial fibrillation SNOMED: 70741458 (6) Anemia ICD Codes: D64.9 - Anemia, unspecified SNOMED: 594269696 (7) Elevated troponin ICD Codes: R74.8 - Elevated troponin SNOMED: 678161787 Status: stable, progressing Assessment/Plan: po lasix Elevate legs Monitor renal function and lytes with diuresis Continue Epogen and iron supplements refusing transfusion- pt jehovahs witness monitor labs as needed-try to avoid unnecessary lab draws Monitor for bleeding IV proton pump inhibitors follow up labs EGD when stable probably needs snf. prefers to take pt home with home health Sumit Hallman MD Jul 08, 2020 15:40
[2020-07-08 16:00] VITALS: BP 106/58
--- NOTE | 2020-07-08 19:02 | Surgery Progress Note ---
Surgery Progress Note Subjective Additional Comments tolerating diet advance doing well no n/v Objective Last 24 Hour Vital Signs Date Time Temp Pulse Resp B/P (MAP) Pulse Ox O2 Delivery O2 Flow Rate FiO2 07/08/20 16:00 60 07/08/20 16:00 97.6 66 18 106/58 (74) 99 07/08/20 12:00 74 07/08/20 12:00 97.5 62 17 109/54 (72) 99 07/08/20 09:00 Nasal Cannula 2.0 07/08/20 08:00 97.9 63 17 108/56 (73) 100 07/08/20 08:00 61 07/08/20 04:00 64 07/08/20 04:00 98.6 82 19 120/59 (79) 98 07/08/20 00:00 60 07/08/20 00:00 98.4 68 18 133/62 (85) 97 07/07/20 21:00 Nasal Cannula 2.0 07/07/20 20:00 97.8 60 20 115/63 (80) 97 07/07/20 20:00 60 I&O Intake and Output 07/07/20 07/08/20 19:00 07:00 Intake Total 200 ml 120 ml Output Total 800 ml Balance 200 ml -680 ml Intake Oral 200 ml 120 ml Other 800 ml # Voids 2 # Bowel Movements 1 Dressing: saturated Cardiovascular: RSR Respiratory: decreased breath sounds Abdomen: soft, non-tender, present bowel sounds, non-distended Extremities: no tenderness, no cyanosis Laboratory Tests Test 07/08/20 07:09 White Blood Count 6.8 K/UL (4.8-10.8) Red Blood Count 2.86 M/UL (4.70-6.10) L Hemoglobin 6.8 G/DL (14.2-18.0) *L Hematocrit 24.4 % (42.0-52.0) L Mean Corpuscular Volume 85 FL (80-99) Mean Corpuscular Hemoglobin 23.9 PG (27.0-31.0) L Mean Corpuscular Hemoglobin Concent 28.0 G/DL (32.0-36.0) L Red Cell Distribution Width 26.2 % (11.6-14.8) H Platelet Count 205 K/UL (150-450) Mean Platelet Volume 7.3 FL (6.5-10.1) Neutrophils (%) (Auto) % (45.0-75.0) Lymphocytes (%) (Auto) % (20.0-45.0) Monocytes (%) (Auto) % (1.0-10.0) Eosinophils (%) (Auto) % (0.0-3.0) Basophils (%) (Auto) % (0.0-2.0) Differential Total Cells Counted 100 Neutrophils % (Manual) 79 % (45-75) H Lymphocytes % (Manual) 11 % (20-45) L Monocytes % (Manual) 9 % (1-10) Eosinophils % (Manual) 1 % (0-3) Basophils % (Manual) 0 % (0-2) Band Neutrophils 0 % (0-8) Platelet Estimate Adequate Platelet Morphology Normal Polychromasia 1+ Hypochromasia 2+ Anisocytosis 3+ Target Cells Occasional Acanthocytes Occasional Schistocytes 1+ Sodium Level 143 MMOL/L (136-145) Potassium Level 3.6 MMOL/L (3.5-5.1) Chloride Level 109 MMOL/L (98-107) H Carbon Dioxide Level 27 MMOL/L (21-32) Anion Gap 7 mmol/L (5-15) Blood Urea Nitrogen 21 mg/dL (7-18) H Creatinine 1.5 MG/DL (0.55-1.30) H Estimat Glomerular Filtration Rate 54.1 mL/min (>60) Glucose Level 79 MG/DL (74-106) Calcium Level 9.9 MG/DL (8.5-10.1) Magnesium Level 1.6 MG/DL (1.8-2.4) L Pro-B-Type Natriuretic Peptide 5076 pg/mL (0-125) H Plan Problems: (1) Anemia (2) Chronic obstructive pulmonary disease (3) Sacral decubitus ulcer Assessment & Plan: Pt presented on admission with multiple Pressure Injuries. Sacral Pressure Injury resolving(L)1.5cm x (W)0.5cm. Base of wound is pink with maceration. Multiple Ulcerations at base of Scrotum . Wounds are resolving(#1) Full thickness Pressure Injury base of wound resolving. Base of wound is 50% mihai 50% pink epithelial(L)2cm x (W)1.2cm. Edges are adherent to base of wound. NO exudate noted. (#2)Wound R testicle resolving. [place] epithelial at base of wound. No exudate noted (L)2cm x (W)1.2cm. (#3)Wound that is proximally to above documented wounds is also resolving(L)1cm x (W)1cm. Base of wound is 25% mihai ,75% surrounding pink epithelial.. L Heel has resolved. Heel is boggy but blanchable and non-tender when palpated R heel has resolved. R heel is boggy but blanchable and non-tender when palpated. Pt is frequently and heavily incontinent of Bladder. place urinary pouch to minimize further skin breakdown from incontinence. Pt is well endowed and unable to place urinary pouch. Ok to improvise with Fecal pouch to contain incontinence. Fecal pouch in place and attached to drainage bag. DAILY ESTIMATED NEEDS: Needs based on Cardiac, wound 88kg abw 25-35 kcals/kg 9212-5251 total kcals 1.25-1.5 g protein/kg 110-132 g total protein Fluid per MD, on lasix NUTRITION DIAGNOSIS: Increased kcal and pro needs r/t wound healing as evidenced by w/ full thickness scrotal wound, refer to full wound care eval. 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 (16) Hemoptysis (17) Stroke (18) COPD exacerbation (19) Acute exacerbation of CHF (congestive heart failure) (20) Epistaxis Benyamini,Erlin Jul 08, 2020 19:02
--- NOTE | 2020-07-08 19:20 | NUR ---
NURSE HAND-OFF REPORT: Important Events on Shift:[] Patient Status: [FULL CODE] Diet: [cardiac] Pending Orders: [] Pending Results/Labs:[] Pending MD notification:[] Latest Vital Signs: Temperature 97.6 , Pulse 66 , B/P 106 /58 , Respiratory Rate 18 , O2 SAT 99 , , O2 Flow Rate 2.0 . Vital Sign Comment: [] EKG Rhythm: Sinus Rhythm Rhythm change?: N MD Notified?: N - MD Response: Latest Munroe Fall Score: 50 Fall Risk: High Risk Safety Measures: Call light Within Reach, Bed Alarm Zone 1, Side Rails Side Rails x2, Bed position Low and Locked. Fall Precautions: Yellow Socks Yellow Gown Door Sign Patient Fall Education Report given to [Susan RODRIGUEZ].
[2020-07-08 20:00] VITALS: BP 105/55
[2020-07-08] MEDS: Epoetin Alfa-EPBX (NON ESRD)10,000 unit/ml vial SUBQ SCH (20:07)
[2020-07-08] MEDS: Dyna-Hex 2% Top Sol 2oz TOPIC SCH (20:07)
[2020-07-08] MEDS: Atorvastatin 20mg tab ORAL SCH (20:07)
[2020-07-09] VITALS: BP 119/63
--- NOTE | 2020-07-09 00:01 | Cardiology Progress Note ---
Subjective DATE OF SERVICE: Jul 08, 2020 Better control of pain noted. No CP. No SOB in bedbound state or with limited mobilization. No N/V/D or pain. Appetite fair. Hemoglobin dropped from 6.8 to 6.0 on 07/04, and back to 6.8 today; no signs of GI blood loss. Very weak , but refuses a SNF. Objective Last 24 Hour Vital Signs Date Time Temp Pulse Resp B/P (MAP) Pulse Ox O2 Delivery O2 Flow Rate FiO2 07/08/20 21:00 Nasal Cannula 2.0 07/08/20 20:00 61 07/08/20 20:00 98.1 60 24 105/55 (72) 98 07/08/20 16:00 60 07/08/20 16:00 97.6 66 18 106/58 (74) 99 07/08/20 12:00 74 07/08/20 12:00 97.5 62 17 109/54 (72) 99 07/08/20 09:00 Nasal Cannula 2.0 07/08/20 08:00 97.9 63 17 108/56 (73) 100 07/08/20 08:00 61 07/08/20 04:00 64 07/08/20 04:00 98.6 82 19 120/59 (79) 98 07/08/20 00:00 60 07/08/20 00:00 98.4 68 18 133/62 (85) 97 HEENT: normal ENT inspection RHYTHM: Afib, other - demand Ventric pacing LUNGS: diminished breath sounds CARDIAC: normal rate, normal S1 and S2, irregularly irregular, systolic murmur - 1/6 apical systolic murmur ABDOMEN: normal bowel sounds EXTREMITIES: normal range of motion, +3 edema Laboratory Tests Test 07/08/20 07:09 White Blood Count 6.8 K/UL (4.8-10.8) Red Blood Count 2.86 M/UL (4.70-6.10) L Hemoglobin 6.8 G/DL (14.2-18.0) *L Hematocrit 24.4 % (42.0-52.0) L Mean Corpuscular Volume 85 FL (80-99) Mean Corpuscular Hemoglobin 23.9 PG (27.0-31.0) L Mean Corpuscular Hemoglobin Concent 28.0 G/DL (32.0-36.0) L Red Cell Distribution Width 26.2 % (11.6-14.8) H Platelet Count 205 K/UL (150-450) Mean Platelet Volume 7.3 FL (6.5-10.1) Neutrophils (%) (Auto) % (45.0-75.0) Lymphocytes (%) (Auto) % (20.0-45.0) Monocytes (%) (Auto) % (1.0-10.0) Eosinophils (%) (Auto) % (0.0-3.0) Basophils (%) (Auto) % (0.0-2.0) Differential Total Cells Counted 100 Neutrophils % (Manual) 79 % (45-75) H Lymphocytes % (Manual) 11 % (20-45) L Monocytes % (Manual) 9 % (1-10) Eosinophils % (Manual) 1 % (0-3) Basophils % (Manual) 0 % (0-2) Band Neutrophils 0 % (0-8) Platelet Estimate Adequate Platelet Morphology Normal Polychromasia 1+ Hypochromasia 2+ Anisocytosis 3+ Target Cells Occasional Acanthocytes Occasional Schistocytes 1+ Sodium Level 143 MMOL/L (136-145) Potassium Level 3.6 MMOL/L (3.5-5.1) Chloride Level 109 MMOL/L (98-107) H Carbon Dioxide Level 27 MMOL/L (21-32) Anion Gap 7 mmol/L (5-15) Blood Urea Nitrogen 21 mg/dL (7-18) H Creatinine 1.5 MG/DL (0.55-1.30) H Estimat Glomerular Filtration Rate 54.1 mL/min (>60) Glucose Level 79 MG/DL (74-106) Calcium Level 9.9 MG/DL (8.5-10.1) Magnesium Level 1.6 MG/DL (1.8-2.4) L Pro-B-Type Natriuretic Peptide 5076 pg/mL (0-125) H Assessment/Plan Assessment/Plan Severe anemia GI bleed Jehovahs witness Ac/chr diastolic CHF now compensated PAFib Pacemaker Hx thoracic aorta repair Elev LFT's may be due to passive congestion COPD Conjunctivitis Abd pain Ac/chr renal failure - improved Orthostatic risk Hypomagnesemia Continue hydrocodone prn for back pain and CROSS Diuresis O2 suppl IV iron and sq EPO Titrate anti-failure rx - decrease for low range BP. No aspirin or anticoag rx; off NSAID's Topical abx Reassess for endoscopy - not stable to defer after discharge. IV magnesium repl Yvan Encarnacion MD Jul 09, 2020 00:01
[2020-07-09 04:00] VITALS: BP 126/64
[2020-07-09] MEDS: HYDROcodone/Acetamin 5/325 tab ORAL PRN ×2 (06:22→17:48)
--- NOTE | 2020-07-09 07:14 | NUR ---
NURSE HAND-OFF REPORT: Important Events on Shift:pain management, Mg infusion x 2 Patient Status: stable Diet: cardiac Pending Orders: Pending Results/Labs: Pending MD notification: Latest Vital Signs: Temperature 97.5 , Pulse 60 , B/P 126 /64 , Respiratory Rate 24 , O2 SAT 98 , , O2 Flow Rate 2.0 . Vital Sign Comment: EKG Rhythm: A-Paced Rhythm change?: N MD Notified?: N - MD Response: Latest Munroe Fall Score: 50 Fall Risk: High Risk Safety Measures: Call light Within Reach, Bed Alarm Zone 1, Side Rails Side Rails x2, Bed position Low and Locked. Fall Precautions: Yellow Socks Yellow Gown Door Sign Patient Fall Education Report given to Kunal Liang RN.
--- NOTE | 2020-07-09 07:22 | NUR ---
NURSE NOTES: Received patient in bed. Awake, A/O x3. On 2 L NC. Patient denies pain at this time. IV in the Right FA, site intact. Bed low and locked, side rails up x2, call light within reach with return demonstration.
[2020-07-09 08:00] VITALS: BP 113/48
[2020-07-09] MEDS: Spironolactone 25mg tab ORAL SCH (08:47)
[2020-07-09] MEDS: Furosemide 40mg tab ORAL SCH (08:48)
[2020-07-09] MEDS: Tamsulosin 0.4mg cap ORAL SCH (08:48)
[2020-07-09] MEDS: Ascorbic Acid 500mg tab ORAL SCH ×2 (08:48→17:46)
[2020-07-09] MEDS: Amiodarone 200mg tab ORAL SCH (08:48)
[2020-07-09 12:00] VITALS: BP 100/50
--- NOTE | 2020-07-09 13:07 | Surgery Progress Note ---
Surgery Progress Note Subjective Symptoms: improved, tolerating diet, voiding well, passing flatus, BM Objective Last 24 Hour Vital Signs Date Time Temp Pulse Resp B/P (MAP) Pulse Ox O2 Delivery O2 Flow Rate FiO2 07/09/20 12:00 97.4 60 18 100/50 (67) 100 07/09/20 09:00 Nasal Cannula 2.0 07/09/20 08:00 97.0 60 17 113/48 (69) 100 07/09/20 08:00 60 07/09/20 04:00 61 07/09/20 04:00 97.5 60 24 126/64 (84) 98 07/09/20 00:00 97.6 64 24 119/63 (81) 97 07/09/20 00:00 60 07/08/20 21:00 Nasal Cannula 2.0 07/08/20 20:00 61 07/08/20 20:00 98.1 60 24 105/55 (72) 98 07/08/20 16:00 60 07/08/20 16:00 97.6 66 18 106/58 (74) 99 I&O Intake and Output 07/08/20 07/09/20 19:00 07:00 Intake Total 400 ml 300 ml Output Total 200 ml 500 ml Balance 200 ml -200 ml Intake Oral 400 ml 300 ml Output Urine Total 200 ml 500 ml # Voids 2 Dressing: other Wound: other Cardiovascular: RSR Respiratory: decreased breath sounds Abdomen: soft, non-tender, present bowel sounds Extremities: no tenderness, no cyanosis Plan Problems: (1) Anemia (2) Chronic obstructive pulmonary disease (3) Sacral decubitus ulcer Assessment & Plan: Pt presented on admission with multiple Pressure Injuries. Sacral Pressure Injury resolving(L)1.5cm x (W)0.5cm. Base of wound is pink with maceration. Multiple Ulcerations at base of Scrotum . Wounds are resolving(#1) Full thickness Pressure Injury base of wound resolving. Base of wound is 50% mihai 50% pink epithelial(L)2cm x (W)1.2cm. Edges are adherent to base of wound. NO exudate noted. (#2)Wound R testicle resolving. [place] epithelial at base of wound. No exudate noted (L)2cm x (W)1.2cm. (#3)Wound that is proximally to above documented wounds is also resolving(L)1cm x (W)1cm. Base of wound is 25% mihai ,75% surrounding pink epithelial.. L Heel has resolved. Heel is boggy but blanchable and non-tender when palpated R heel has resolved. R heel is boggy but blanchable and non-tender when palpated. Pt is frequently and heavily incontinent of Bladder. place urinary pouch to minimize further skin breakdown from incontinence. Pt is well endowed and unable to place urinary pouch. Ok to improvise with Fecal pouch to contain incontinence. Fecal pouch in place and attached to drainage bag. DAILY ESTIMATED NEEDS: Needs based on Cardiac, wound 88kg abw 25-35 kcals/kg 4055-1436 total kcals 1.25-1.5 g protein/kg 110-132 g total protein Fluid per MD, on lasix NUTRITION DIAGNOSIS: Increased kcal and pro needs r/t wound healing as evidenced by w/ full thickness scrotal wound, refer to full wound care eval. CURRENT DIET:CLEAR LIQUID DIET (SINCE 07/02) PO DIET RECOMMENDATIONS: Liberalized Regular diet/ texture as tolerated w/ variable po intake ADDITIONAL RECOMMENDATIONS: 1) CALIBRATED BED SCALE wt 2) On lasix, monitor lytes daily 3) Monitor for diet advancement- on CLD since 07/02 -> continue Ensure Clear TID w/ CLD; Ensure Enlive w/ advanced diet 4) TUG MASTER eval for appropriate texture w/ diet advancement 5) WOUND CARE: continue MVI and Vit C KELLEY BID added to tray (4) PNA (pneumonia) (5) Elevated troponin (6) UTI (lower urinary tract infection) (7) Acute exacerbation of CHF (congestive heart failure) (8) UTI (lower urinary tract infection) (9) Atrial fibrillation (10) CHF (congestive heart failure) (11) Orthopnea (12) Dyspnea on exertion (13) Swelling of lower extremity (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 (16) Hemoptysis (17) Stroke (18) COPD exacerbation (19) Acute exacerbation of CHF (congestive heart failure) (20) Epistaxis Erlin Kearns Jul 09, 2020 13:07
[2020-07-09 16:00] VITALS: BP 116/63
--- NOTE | 2020-07-09 16:15 | NUR ---
CASE MANAGEMENT:REVIEW 07/09/20 SI: ANEMIA. VS: T 97.4 HR 60 RR 18 B/P 100/50 SATS 100% ON 2L/NC LABS: HGB 6.8 HCT 24.4 CL 109 BUN 21 CR 1.5 MG 1.6 BNP 5076 IS; K-DUR PO QD ALDACTONE PO QD IV LASIX QD EPOETIN SQ QOD FLOMAX PO QD PROSCAR PO QD AMIODARONE PO QD PROTONIX PO QD : TELEMETRY STATUS DCP: FROM HOME
--- NOTE | 2020-07-09 16:27 | General Progress Note ---
Subjective ROS Limited/Unobtainable: No Constitutional: Reports: malaise, weakness HEENT: Reports: no symptoms Cardiovascular: Reports: edema Respiratory: Reports: no symptoms Gastrointestinal/Abdominal: Reports: no symptoms Genitourinary: Reports: no symptoms Neurologic/Psychiatric: Reports: no symptoms Endocrine: Reports: no symptoms Hematologic/Lymphatic: Reports: anemia Allergies: Coded Allergies: No Known Allergies (Verified , 01/23/09) All Systems: reviewed and negative except above Subjective No new complaints. resting. no distress. Denies chest pain or shortness of breath. lying flat. Mild cough. no sputum, No reports of bleeding. On oral diuretic treatment. Objective Last 24 Hour Vital Signs Date Time Temp Pulse Resp B/P (MAP) Pulse Ox O2 Delivery O2 Flow Rate FiO2 07/09/20 12:00 97.4 60 18 100/50 (67) 100 07/09/20 12:00 60 07/09/20 09:00 Nasal Cannula 2.0 07/09/20 08:00 97.0 60 17 113/48 (69) 100 07/09/20 08:00 60 07/09/20 04:00 61 07/09/20 04:00 97.5 60 24 126/64 (84) 98 07/09/20 00:00 97.6 64 24 119/63 (81) 97 07/09/20 00:00 60 07/08/20 21:00 Nasal Cannula 2.0 07/08/20 20:00 61 07/08/20 20:00 98.1 60 24 105/55 (72) 98 Intake and Output 07/08/20 07/09/20 19:00 07:00 Intake Total 400 ml 300 ml Output Total 200 ml 500 ml Balance 200 ml -200 ml Intake Oral 400 ml 300 ml Output Urine Total 200 ml 500 ml # Voids 2 Height (Feet): 6 Height (Inches): 2.00 Weight (Pounds): 204 Objective General Appearance: WD/WN, alert, confused EENT: normal ENT inspection Neck: normal alignment, supple Cardiovascular: normal rate, regular rhythm Respiratory/Chest: chest wall non-tender, lungs clear, normal breath sounds, no respiratory distress, no accessory muscle use Abdomen: normal bowel sounds, non tender, soft, no organomegaly Edema: 3+ Pedal (L), 3+ Pedal (R) Edema: severe edema 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, alert, responsive Skin: normal pigmentation, warm/dry Assessment/Plan Problem List: (1) Acute exacerbation of CHF (congestive heart failure) (2) Swelling of lower extremity ICD Codes: M79.89 - Other specified soft tissue disorders SNOMED: 238271429, 870708404 (3) Orthopnea (4) CHF (congestive heart failure) ICD Codes: I50.9 - CHF (congestive heart failure) SNOMED: 22040843 (5) Atrial fibrillation ICD Codes: I48.91 - Atrial fibrillation SNOMED: 86599344 (6) Anemia ICD Codes: D64.9 - Anemia, unspecified SNOMED: 643514038 (7) Elevated troponin ICD Codes: R74.8 - Elevated troponin SNOMED: 942854930 Status: stable, progressing Assessment/Plan: po lasix Elevate legs Monitor renal function and lytes with diuresis Continue Epogen and iron supplements refusing transfusion- pt jehovahs witness monitor labs as needed-try to avoid unnecessary lab draws Monitor for bleeding IV proton pump inhibitors follow up labs EGD when stable with d/w cards. Hgb >8 probably needs snf. prefers to take pt home with home health Sumit Hallman MD Jul 09, 2020 16:27
--- NOTE | 2020-07-09 18:54 | NUR ---
NURSE HAND-OFF REPORT: Important Events on Shift:[] Patient Status: [FULL CODE] Diet: [cardiac] Pending Orders: [] Pending Results/Labs:[] Pending MD notification:[] Latest Vital Signs: Temperature 97.6 , Pulse 60 , B/P 116 /63 , Respiratory Rate 18 , O2 SAT 98 , , O2 Flow Rate 2.0 . Vital Sign Comment: [] EKG Rhythm: SR/A-PACED Rhythm change?: N MD Notified?: N - MD Response: Latest Munroe Fall Score: 50 Fall Risk: High Risk Safety Measures: Call light Within Reach, Bed Alarm Zone 1, Side Rails Side Rails x2, Bed position Low and Locked. Fall Precautions: Yellow Socks Yellow Gown Door Sign Patient Fall Education Report given to [Barbie RODRIGUEZ].
--- NOTE | 2020-07-09 19:00 | NUR ---
NURSE NOTES: Report received from Kunal RODRIGUEZ. Upon assessment pt is observed awake in bed. A/Ox2. PERRLA. Bp appears to be hypotensive. Afebrile. Saturating 95% on 2L N/C. 5-lead EKG SR at 61 bpm. Right arm IV patent and intact. Made aware of J.W. status and abnormal Hgb. Bed kept in lowest and locked position. Call light within reach. Side rails up x3. Will monitor.
[2020-07-09 20:00] VITALS: BP_SYST 105; BP_SYST 92; BP_DIAS 56; BP_DIAS 57
--- NOTE | 2020-07-09 20:00 | NUR ---
NURSE NOTES: Pt , Lauren, called asking me / phlebotomy not to draw "too much of patient's blood because he's low." Reassured blood draws are per physician order only and not done routinely/daily. confirms is Jehovah Witness.
[2020-07-09] MEDS: Atorvastatin 20mg tab ORAL SCH (20:30)
--- NOTE | 2020-07-09 22:25 | General Progress Note ---
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 H&H still low d/w patient re slow response to Iron and EPO advised will need to discharge him and re-admit for EGD/Colon Objective Last 24 Hour Vital Signs Date Time Temp Pulse Resp B/P (MAP) Pulse Ox O2 Delivery O2 Flow Rate FiO2 07/09/20 21:00 Nasal Cannula 2.0 07/09/20 20:00 97.6 81 16 105/57 (73) 99 07/09/20 16:00 97.6 62 18 116/63 (80) 98 07/09/20 16:00 60 07/09/20 12:00 97.4 60 18 100/50 (67) 100 07/09/20 12:00 60 07/09/20 09:00 Nasal Cannula 2.0 07/09/20 08:00 97.0 60 17 113/48 (69) 100 07/09/20 08:00 60 07/09/20 04:00 61 07/09/20 04:00 97.5 60 24 126/64 (84) 98 07/09/20 00:00 97.6 64 24 119/63 (81) 97 07/09/20 00:00 60 Intake and Output 07/08/20 07/09/20 19:00 07:00 Intake Total 400 ml 300 ml Output Total 200 ml 500 ml Balance 200 ml -200 ml Intake Oral 400 ml 300 ml Output Urine Total 200 ml 500 ml # Voids 2 Height (Feet): 6 Height (Inches): 2.00 Weight (Pounds): 204 Objective Patient evaluated using telehealth protocol Patient understood limitations and agreed to proceed. Assessment/Plan Status: stable, progressing Assessment/Plan: Assessment - Iron deficiency anemia - Jehovas, declines transfusion - lower abdominal TTP, ? etiology - b/l edema and anasarca - improved - azotemia - improved - CHF - COPD - CHF Recommendations - EPO - IV Iron - check CT abd/pelvis --> anasarca, diverticulosis - PPI - EGD/Colon once H&H adequately improved - OK from GI standpoint for discharge to SNF ---> can return as outpatient for EGD/Colon Jacob Deleon MD Jul 09, 2020 22:25
--- NOTE | 2020-07-09 23:00 | NUR ---
NURSE NOTES: Pt c/o generalized pain 10/10 throughout body. States, "He knows he's sick but just wants to go home." Offered PRN but patient refuses. Repositioned and kept patient warm. Will monitor.
[2020-07-10] VITALS: BP 108/52
--- NOTE | 2020-07-10 00:32 | Cardiology Progress Note ---
Subjective DATE OF SERVICE: Jul 09, 2020 Discussed with for 30"; she does not want him to go to a SNF (even though he has gone in the past) because of concerns for COVID. Better control of pain noted. No CP. No SOB in bedbound state or with limited mobilization. No N/V/D or pain. Appetite fair. Hemoglobin dropped from 6.8 to 6.0 on 07/04, and back to 6.8 today; no signs of GI blood loss. Very weak , but refuses a SNF. Objective Last 24 Hour Vital Signs Date Time Temp Pulse Resp B/P (MAP) Pulse Ox O2 Delivery O2 Flow Rate FiO2 07/10/20 00:00 97.9 62 16 108/52 (70) 98 07/09/20 21:00 Nasal Cannula 2.0 07/09/20 20:00 61 07/09/20 20:00 97.6 81 16 105/57 (73) 99 07/09/20 16:00 97.6 62 18 116/63 (80) 98 07/09/20 16:00 60 07/09/20 12:00 97.4 60 18 100/50 (67) 100 07/09/20 12:00 60 07/09/20 09:00 Nasal Cannula 2.0 07/09/20 08:00 97.0 60 17 113/48 (69) 100 07/09/20 08:00 60 07/09/20 04:00 61 07/09/20 04:00 97.5 60 24 126/64 (84) 98 HEENT: normal ENT inspection RHYTHM: Afib, other - demand Ventric pacing LUNGS: diminished breath sounds CARDIAC: normal rate, normal S1 and S2, irregularly irregular, systolic murmur - 1/6 apical systolic murmur ABDOMEN: normal bowel sounds EXTREMITIES: normal range of motion, +3 edema Assessment/Plan Assessment/Plan Severe anemia GI bleed Jehovahs witness Ac/chr diastolic CHF now compensated PAFib Pacemaker Hx thoracic aorta repair Elev LFT's may be due to passive congestion COPD Conjunctivitis Abd pain Ac/chr renal failure - improved Orthostatic risk Hypomagnesemia Continue hydrocodone prn for back pain and CROSS Diuresis O2 suppl IV iron and sq EPO Titrate anti-failure rx - decrease for low range BP. No aspirin or anticoag rx; off NSAID's Topical abx Reassess for endoscopy - not stable to defer after discharge. CAN LIKELY DO SAFELY WITH Hb above 7. IV magnesium repl as needed Yvan Encarnacion MD Jul 10, 2020 00:32
[2020-07-10 04:00] VITALS: BP 120/55
[2020-07-10] MEDS: HYDROcodone/Acetamin 5/325 tab ORAL PRN ×3 (04:51→20:50)
--- NOTE | 2020-07-10 07:02 | NUR ---
NURSE HAND-OFF REPORT: Important Events on Shift: no changes; H&H still low Patient Status: Stable Diet: Cardiac Pending Orders: Pending Results/Labs: Pending MD notification: Latest Vital Signs: Temperature 98.0 , Pulse 62 , B/P 120 /55 , Respiratory Rate 18 , O2 SAT 98 , , O2 Flow Rate 2.0 . Vital Sign Comment: EKG Rhythm: SR/A-PACED Rhythm change?: N MD Notified?: N - MD Response: Latest Munroe Fall Score: 50 Fall Risk: High Risk Safety Measures: Call light Within Reach, Bed Alarm Zone 1, Side Rails Side Rails x3, Bed position Low and Locked. Fall Precautions: Yellow Socks Yellow Gown Door Sign Patient Fall Education Report given to JENNIFER Stokes.
--- NOTE | 2020-07-10 07:59 | NUR ---
NURSE NOTES: Patient seen in bed in low fowlers position with no acute signs of distress and on nasal cannula 2L O2 with oxygen saturation within normal limits. The patient has a R FA 22G saline locked, that is clean, patent and intact. The patients bed is in lowest position, locked, side rails x3, bed alarm in zone 1 and call light within reach.
[2020-07-10 08:00] VITALS: BP 98/42
--- NOTE | 2020-07-10 08:25 | General Progress Note ---
Subjective ROS Limited/Unobtainable: No Constitutional: Reports: malaise, weakness HEENT: Reports: no symptoms Cardiovascular: Reports: edema Respiratory: Reports: no symptoms Gastrointestinal/Abdominal: Reports: no symptoms Genitourinary: Reports: no symptoms Neurologic/Psychiatric: Reports: pre-existing deficit Endocrine: Reports: no symptoms Hematologic/Lymphatic: Reports: anemia Allergies: Coded Allergies: No Known Allergies (Verified , 01/23/09) All Systems: reviewed and negative except above Subjective No new complaints. resting. no distress. Denies chest pain or shortness of breath. lying flat. Mild cough. no sputum, No reports of bleeding. On oral diuretic treatment. cards noted Objective Last 24 Hour Vital Signs Date Time Temp Pulse Resp B/P (MAP) Pulse Ox O2 Delivery O2 Flow Rate FiO2 07/10/20 05:23 98.0 07/10/20 04:00 98.0 61 18 120/55 (76) 98 07/10/20 04:00 62 07/10/20 00:00 60 07/10/20 00:00 97.9 62 16 108/52 (70) 98 07/09/20 21:00 Nasal Cannula 2.0 07/09/20 20:00 61 07/09/20 20:00 97.6 81 16 105/57 (73) 99 07/09/20 16:00 97.6 62 18 116/63 (80) 98 07/09/20 16:00 60 07/09/20 12:00 97.4 60 18 100/50 (67) 100 07/09/20 12:00 60 07/09/20 09:00 Nasal Cannula 2.0 Intake and Output 07/09/20 07/10/20 19:00 07:00 Intake Total 350 ml 100 ml Output Total 550 ml 450 ml Balance -200 ml -350 ml Intake Oral 350 ml 100 ml Output Urine Total 550 ml 450 ml Height (Feet): 6 Height (Inches): 2.00 Weight (Pounds): 204 Objective General Appearance: WD/WN, alert, confused EENT: normal ENT inspection Neck: normal alignment, supple Cardiovascular: normal rate, regular rhythm Respiratory/Chest: chest wall non-tender, lungs clear, normal breath sounds, no respiratory distress, no accessory muscle use Abdomen: normal bowel sounds, non tender, soft, no organomegaly Edema: 3+ Pedal (L), 3+ Pedal (R) Edema: severe edema 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, alert, responsive Skin: normal pigmentation, warm/dry Assessment/Plan Problem List: (1) Acute exacerbation of CHF (congestive heart failure) (2) Swelling of lower extremity ICD Codes: M79.89 - Other specified soft tissue disorders SNOMED: 184434093, 640448701 (3) Orthopnea (4) CHF (congestive heart failure) ICD Codes: I50.9 - CHF (congestive heart failure) SNOMED: 63162502 (5) Atrial fibrillation ICD Codes: I48.91 - Atrial fibrillation SNOMED: 84704980 (6) Anemia ICD Codes: D64.9 - Anemia, unspecified SNOMED: 086264973 (7) Elevated troponin ICD Codes: R74.8 - Elevated troponin SNOMED: 928228223 Status: stable, progressing Assessment/Plan: po lasix Elevate legs Monitor renal function and lytes with diuresis Continue Epogen and iron supplements refusing transfusion- pt jehovahs witness monitor labs as needed-try to avoid unnecessary lab draws Monitor for bleeding IV proton pump inhibitors follow up labs EGD when stable with d/w cards. Hgb >7 follow up labs from today gi follow up for possible colonoscopy if hgb >7 probably needs snf. prefers to take pt home with home health Sumit Hallman MD Jul 10, 2020 08:25
[2020-07-10] MEDS: Tamsulosin 0.4mg cap ORAL SCH (10:09)
[2020-07-10] MEDS: Amiodarone 200mg tab ORAL SCH (10:09)
[2020-07-10] MEDS: Spironolactone 25mg tab ORAL SCH (10:10)
[2020-07-10] MEDS: Furosemide 40mg tab ORAL SCH (10:11)
[2020-07-10] MEDS: Ascorbic Acid 500mg tab ORAL SCH ×2 (10:11→17:40)
[2020-07-10 10:16] LABS: HEMATOCRIT 24.7 % (42.0-52.0); MEAN CORPUSCULAR VOLUME 84 FL (80-99); PLATELET COUNT 213 K/UL (150-450); RED BLOOD COUNT 2.93 M/UL (4.70-6.10); WHITE BLOOD COUNT 6.7 K/UL (4.8-10.8)
[2020-07-10 10:23] LABS: HEMOGLOBIN 6.7 G/DL (14.2-18.0)
[2020-07-10 10:40] LABS: ALBUMIN 2.6 G/DL (3.4-5.0); ALBUMIN/GLOBULIN RATIO 0.6 (1.0-2.7); BILIRUBIN,TOTAL 2.2 MG/DL (0.2-1.0); CALCIUM 9.9 MG/DL (8.5-10.1); CREATININE 1.5 MG/DL (0.55-1.30); POTASSIUM 3.7 MMOL/L (3.5-5.1)
[2020-07-10 10:41] LABS: BILIRUBIN,DIRECT 1.2 MG/DL (0.0-0.3)
--- NOTE | 2020-07-10 11:57 | Surgery Progress Note ---
Surgery Progress Note Subjective Symptoms: improved, tolerating diet, passing flatus Objective Last 24 Hour Vital Signs Date Time Temp Pulse Resp B/P (MAP) Pulse Ox O2 Delivery O2 Flow Rate FiO2 07/10/20 09:00 Nasal Cannula 2.0 07/10/20 08:00 60 07/10/20 08:00 97.8 100 20 98/42 (60) 100 07/10/20 05:23 98.0 07/10/20 04:00 98.0 61 18 120/55 (76) 98 07/10/20 04:00 62 07/10/20 00:00 60 07/10/20 00:00 97.9 62 16 108/52 (70) 98 07/09/20 21:00 Nasal Cannula 2.0 07/09/20 20:00 61 07/09/20 20:00 97.6 81 16 105/57 (73) 99 07/09/20 16:00 97.6 62 18 116/63 (80) 98 07/09/20 16:00 60 07/09/20 12:00 97.4 60 18 100/50 (67) 100 07/09/20 12:00 60 I&O Intake and Output 07/09/20 07/10/20 19:00 07:00 Intake Total 350 ml 100 ml Output Total 550 ml 450 ml Balance -200 ml -350 ml Intake Oral 350 ml 100 ml Output Urine Total 550 ml 450 ml Dressing: saturated Cardiovascular: RSR Respiratory: decreased breath sounds Abdomen: soft, flat, non-tender, present bowel sounds, non-distended Extremities: no edema, no tenderness, no cyanosis Laboratory Tests Test 07/10/20 09:50 White Blood Count 6.7 K/UL (4.8-10.8) Red Blood Count 2.93 M/UL (4.70-6.10) L Hemoglobin 6.7 G/DL (14.2-18.0) *L Hematocrit 24.7 % (42.0-52.0) L Mean Corpuscular Volume 84 FL (80-99) Mean Corpuscular Hemoglobin 22.9 PG (27.0-31.0) L Mean Corpuscular Hemoglobin Concent 27.1 G/DL (32.0-36.0) L Red Cell Distribution Width 26.0 % (11.6-14.8) H Platelet Count 213 K/UL (150-450) Mean Platelet Volume 5.8 FL (6.5-10.1) L Neutrophils (%) (Auto) % (45.0-75.0) Lymphocytes (%) (Auto) % (20.0-45.0) Monocytes (%) (Auto) % (1.0-10.0) Eosinophils (%) (Auto) % (0.0-3.0) Basophils (%) (Auto) % (0.0-2.0) Differential Total Cells Counted 100 Neutrophils % (Manual) 74 % (45-75) Lymphocytes % (Manual) 17 % (20-45) L Monocytes % (Manual) 6 % (1-10) Eosinophils % (Manual) 3 % (0-3) Basophils % (Manual) 0 % (0-2) Band Neutrophils 0 % (0-8) Platelet Estimate Adequate Platelet Morphology Normal Hypochromasia 3+ Anisocytosis 2+ Target Cells Occasional Acanthocytes Occasional Schistocytes 1+ Sodium Level 140 MMOL/L (136-145) Potassium Level 3.7 MMOL/L (3.5-5.1) Chloride Level 106 MMOL/L (98-107) Carbon Dioxide Level 26 MMOL/L (21-32) Anion Gap 8 mmol/L (5-15) Blood Urea Nitrogen 24 mg/dL (7-18) H Creatinine 1.5 MG/DL (0.55-1.30) H Estimat Glomerular Filtration Rate 54.1 mL/min (>60) Glucose Level 90 MG/DL (74-106) Calcium Level 9.9 MG/DL (8.5-10.1) Magnesium Level 1.8 MG/DL (1.8-2.4) Total Bilirubin 2.2 MG/DL (0.2-1.0) H Direct Bilirubin 1.2 MG/DL (0.0-0.3) H Aspartate Amino Transf (AST/SGOT) 22 U/L (15-37) Alanine Aminotransferase (ALT/SGPT) 9 U/L (12-78) L Alkaline Phosphatase 79 U/L (46-116) Pro-B-Type Natriuretic Peptide 5101 pg/mL (0-125) H Total Protein 6.8 G/DL (6.4-8.2) Albumin 2.6 G/DL (3.4-5.0) L Globulin 4.2 g/dL Albumin/Globulin Ratio 0.6 (1.0-2.7) L Plan Problems: (1) Anemia (2) Chronic obstructive pulmonary disease (3) Sacral decubitus ulcer Assessment & Plan: Pt presented on admission with multiple Pressure Injuries. Sacral Pressure Injury resolving(L)1.5cm x (W)0.5cm. Base of wound is pink with maceration. Multiple Ulcerations at base of Scrotum . Wounds are resolving(#1) Full thickness Pressure Injury base of wound resolving. Base of wound is 50% mihai 50% pink epithelial(L)2cm x (W)1.2cm. Edges are adherent to base of wound. NO exudate noted. (#2)Wound R testicle resolving. [place] epithelial at base of wound. No exudate noted (L)2cm x (W)1.2cm. (#3)Wound that is proximally to above documented wounds is also resolving(L)1cm x (W)1cm. Base of wound is 25% mihai ,75% surrounding pink epithelial.. L Heel has resolved. Heel is boggy but blanchable and non-tender when palpated R heel has resolved. R heel is boggy but blanchable and non-tender when palpated. Pt is frequently and heavily incontinent of Bladder. place urinary pouch to minimize further skin breakdown from incontinence. Pt is well endowed and unable to place urinary pouch. Ok to improvise with Fecal pouch to contain incontinence. Fecal pouch in place and attached to drainage bag. DAILY ESTIMATED NEEDS: Needs based on Cardiac, wound 88kg abw 25-35 kcals/kg 3502-9298 total kcals 1.25-1.5 g protein/kg 110-132 g total protein Fluid per MD, on lasix NUTRITION DIAGNOSIS: Increased kcal and pro needs r/t wound healing as evidenced by w/ full thickness scrotal wound, refer to full wound care eval. 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 (16) Hemoptysis (17) Stroke (18) COPD exacerbation (19) Acute exacerbation of CHF (congestive heart failure) (20) Epistaxis Erlin Kearns Jul 10, 2020 11:57
[2020-07-10 12:00] VITALS: BP 100/61
--- NOTE | 2020-07-10 12:10 | NUR ---
RD ASSESSMENT & RECOMMENDATIONS SEE CARE ACTIVITY FOR COMPLETE ASSESSMENT DAILY ESTIMATED NEEDS: Needs based on Cardiac, wound 88kg abw 25-35 kcals/kg 4803-1170 total kcals 1.25-1.5 g protein/kg 110-132 g total protein Fluid per MD, on lasix NUTRITION DIAGNOSIS: Increased kcal and pro needs r/t wound healing as evidenced by w/ full thickness scrotal wound, refer to full wound care eval. CURRENT DIET:CARDIAC PO DIET RECOMMENDATIONS: Liberalized Regular diet/ texture as tolerated w/ variable po intake ADDITIONAL RECOMMENDATIONS: 1) CALIBRATED BED SCALE wt 2) On lasix and aldactone, monitor lytes daily 3) Ensure Enlive TID w/ meals 4) ASSEMBLER EQUIPMENT eval for appropriate texture 5) WOUND CARE: continue MVI and Vit C KELLEY BID added to tray .
[2020-07-10 16:00] VITALS: BP 103/57
--- NOTE | 2020-07-10 18:37 | NUR ---
NURSE HAND-OFF REPORT: Important Events on Shift:[continual Low H&H] Patient Status: [Full Code] Diet: [Cardiac Diet] Pending Orders: [N/A] Pending Results/Labs:[N/A] Pending MD notification:[N/A] Latest Vital Signs: Temperature 98.9 , Pulse 60 , B/P 103 /57 , Respiratory Rate 18 , O2 SAT 98 , , O2 Flow Rate 2.0 . Vital Sign Comment: [] EKG Rhythm: SR/A-PACED Rhythm change?: N MD Notified?: N - MD Response: Latest Munroe Fall Score: 50 Fall Risk: High Risk Safety Measures: Call light Within Reach, Bed Alarm Zone 1, Side Rails Side Rails x3, Bed position Low and Locked. Fall Precautions: Yellow Socks Yellow Gown Door Sign Patient Fall Education Report given to [JENNIFER Valentin].
--- NOTE | 2020-07-10 19:00 | NUR ---
NURSE NOTES: Report received from JENNIFER Stokes with update. Upon assessment pt is observed resting in bed. Responsive to verbal/tactile stimuli. Denies pain. Vitals WNL. Saturating 96% on 2L N/C. Rhonchi auscultated on lower lung lobes. Repositioned pt. 5-lead EKG NSR. Bowel sounds auscultated on RLQ. Right arm IV patent and intact. Bed kept in lowest and locked position. Call light within reach. Side rails up x3. Will monitor.
--- NOTE | 2020-07-10 19:40 | Cardiology Progress Note ---
Subjective DATE OF SERVICE: Jul 10, 2020 Discussed with for 30" yesterday; she does not want him to go to a SNF (even though he has gone in the past) because of concerns for COVID. Better control of pain noted. No CP. No SOB in bedbound state or with limited mobilization. No N/V/D or pain. Appetite fair. Hemoglobin dropped from 6.8 to 6.0 on 07/04, and back to 6.7 today; no signs of GI blood loss. Very weak , but refuses a SNF. Objective Last 24 Hour Vital Signs Date Time Temp Pulse Resp B/P (MAP) Pulse Ox O2 Delivery O2 Flow Rate FiO2 07/10/20 16:00 98.9 60 18 103/57 (72) 98 07/10/20 16:00 60 07/10/20 12:00 60 07/10/20 12:00 97.7 86 18 100/61 (74) 98 07/10/20 09:00 Nasal Cannula 2.0 07/10/20 08:00 60 07/10/20 08:00 97.8 100 20 98/42 (60) 100 07/10/20 05:23 98.0 07/10/20 04:00 98.0 61 18 120/55 (76) 98 07/10/20 04:00 62 07/10/20 00:00 60 07/10/20 00:00 97.9 62 16 108/52 (70) 98 07/09/20 21:00 Nasal Cannula 2.0 07/09/20 20:00 61 07/09/20 20:00 97.6 81 16 105/57 (73) 99 HEENT: normal ENT inspection RHYTHM: Afib, other - demand Ventric pacing LUNGS: diminished breath sounds CARDIAC: normal rate, normal S1 and S2, irregularly irregular, systolic murmur - 1/6 apical systolic murmur ABDOMEN: normal bowel sounds EXTREMITIES: normal range of motion, +3 edema Laboratory Tests Test 07/10/20 09:50 White Blood Count 6.7 K/UL (4.8-10.8) Red Blood Count 2.93 M/UL (4.70-6.10) L Hemoglobin 6.7 G/DL (14.2-18.0) *L Hematocrit 24.7 % (42.0-52.0) L Mean Corpuscular Volume 84 FL (80-99) Mean Corpuscular Hemoglobin 22.9 PG (27.0-31.0) L Mean Corpuscular Hemoglobin Concent 27.1 G/DL (32.0-36.0) L Red Cell Distribution Width 26.0 % (11.6-14.8) H Platelet Count 213 K/UL (150-450) Mean Platelet Volume 5.8 FL (6.5-10.1) L Neutrophils (%) (Auto) % (45.0-75.0) Lymphocytes (%) (Auto) % (20.0-45.0) Monocytes (%) (Auto) % (1.0-10.0) Eosinophils (%) (Auto) % (0.0-3.0) Basophils (%) (Auto) % (0.0-2.0) Differential Total Cells Counted 100 Neutrophils % (Manual) 74 % (45-75) Lymphocytes % (Manual) 17 % (20-45) L Monocytes % (Manual) 6 % (1-10) Eosinophils % (Manual) 3 % (0-3) Basophils % (Manual) 0 % (0-2) Band Neutrophils 0 % (0-8) Platelet Estimate Adequate Platelet Morphology Normal Hypochromasia 3+ Anisocytosis 2+ Target Cells Occasional Acanthocytes Occasional Schistocytes 1+ Sodium Level 140 MMOL/L (136-145) Potassium Level 3.7 MMOL/L (3.5-5.1) Chloride Level 106 MMOL/L (98-107) Carbon Dioxide Level 26 MMOL/L (21-32) Anion Gap 8 mmol/L (5-15) Blood Urea Nitrogen 24 mg/dL (7-18) H Creatinine 1.5 MG/DL (0.55-1.30) H Estimat Glomerular Filtration Rate 54.1 mL/min (>60) Glucose Level 90 MG/DL (74-106) Calcium Level 9.9 MG/DL (8.5-10.1) Magnesium Level 1.8 MG/DL (1.8-2.4) Total Bilirubin 2.2 MG/DL (0.2-1.0) H Direct Bilirubin 1.2 MG/DL (0.0-0.3) H Aspartate Amino Transf (AST/SGOT) 22 U/L (15-37) Alanine Aminotransferase (ALT/SGPT) 9 U/L (12-78) L Alkaline Phosphatase 79 U/L (46-116) Pro-B-Type Natriuretic Peptide 5101 pg/mL (0-125) H Total Protein 6.8 G/DL (6.4-8.2) Albumin 2.6 G/DL (3.4-5.0) L Globulin 4.2 g/dL Albumin/Globulin Ratio 0.6 (1.0-2.7) L Assessment/Plan Assessment/Plan Severe anemia GI bleed Jehovahs witness Ac/chr diastolic CHF now compensated PAFib Pacemaker Hx thoracic aorta repair Elev LFT's may be due to passive congestion COPD Conjunctivitis Abd pain Ac/chr renal failure - improved Orthostatic risk Hypomagnesemia Stable for endoscopy at present despite hb at current level - based on observation over past 10 days. Continue hydrocodone prn for back pain and CROSS Diuresis adjustment based on clinical status. O2 suppl IV iron and sq EPO Titrate anti-failure rx - decrease for low range BP. No aspirin or anticoag rx; off NSAID's Topical abx IV magnesium repl and oral potassium rx as needed Yvan Encarnacion MD Jul 10, 2020 19:39
[2020-07-10 20:00] VITALS: BP 100/60
[2020-07-10] MEDS: Atorvastatin 20mg tab ORAL SCH (20:28)
[2020-07-10] MEDS: Epoetin Alfa-EPBX (NON ESRD)10,000 unit/ml vial SUBQ SCH (20:28)
--- NOTE | 2020-07-10 20:30 | NUR ---
NURSE NOTES: Dr. Encarnacion visiting at bedside. Says pt is stable enough for EGD despite Hgb of 6.7 and Jehova. Successfully moved pt from room 221-2 to room 216-2 per MD request.
--- NOTE | 2020-07-10 22:26 | General Progress Note ---
Subjective Allergies: Coded Allergies: No Known Allergies (Verified , 01/23/09) Subjective no new complaints no abdominal complaints H&H noted D/w cardiology Objective Last 24 Hour Vital Signs Date Time Temp Pulse Resp B/P (MAP) Pulse Ox O2 Delivery O2 Flow Rate FiO2 07/10/20 22:17 98.9 07/10/20 21:00 Nasal Cannula 2.0 07/10/20 16:00 98.9 60 18 103/57 (72) 98 07/10/20 16:00 60 07/10/20 12:00 60 07/10/20 12:00 97.7 86 18 100/61 (74) 98 07/10/20 09:00 Nasal Cannula 2.0 07/10/20 08:00 60 07/10/20 08:00 97.8 100 20 98/42 (60) 100 07/10/20 05:23 98.0 07/10/20 04:00 98.0 61 18 120/55 (76) 98 07/10/20 04:00 62 07/10/20 00:00 60 07/10/20 00:00 97.9 62 16 108/52 (70) 98 Intake and Output 07/09/20 07/10/20 19:00 07:00 Intake Total 350 ml 100 ml Output Total 550 ml 450 ml Balance -200 ml -350 ml Intake Oral 350 ml 100 ml Output Urine Total 550 ml 450 ml Laboratory Tests 07/10/20 09:50: White Blood Count 6.7, Red Blood Count 2.93L, Hemoglobin 6.7*L, Hematocrit 24.7L , Mean Corpuscular Volume 84, Mean Corpuscular Hemoglobin 22.9L, Mean Corpuscular Hemoglobin Concent 27.1L, Red Cell Distribution Width 26.0H, Platelet Count 213, Mean Platelet Volume 5.8L, Neutrophils (%) (Auto) , Lymphocytes (%) (Auto) , Monocytes (%) (Auto) , Eosinophils (%) (Auto) , Basophils (%) (Auto) , Differential Total Cells Counted 100, Neutrophils % (Manual) 74, Lymphocytes % (Manual) 17L, Monocytes % (Manual) 6, Eosinophils % (Manual) 3, Basophils % (Manual) 0, Band Neutrophils 0, Platelet Estimate Adequate, Platelet Morphology Normal, Hypochromasia 3+, Anisocytosis 2+, Target Cells Occasional, Acanthocytes Occasional, Schistocytes 1+, Sodium Level 140, Potassium Level 3.7, Chloride Level 106, Carbon Dioxide Level 26, Anion Gap 8, Blood Urea Nitrogen 24H, Creatinine 1.5H, Estimat Glomerular Filtration Rate 54.1, Glucose Level 90, Calcium Level 9.9, Magnesium Level 1.8, Total Bilirubin 2.2H, Direct Bilirubin 1.2H, Aspartate Amino Transf (AST/SGOT) 22, Alanine Aminotransferase (ALT/SGPT) 9L, Alkaline Phosphatase 79, Pro-B-Type Natriuretic Peptide 5101H, Total Protein 6.8, Albumin 2.6L, Globulin 4.2, Albumin/Globulin Ratio 0.6L Height (Feet): 6 Height (Inches): 2.00 Weight (Pounds): 204 Objective WDWN NCAT supple CTA RRR abd soft ND trace edema Assessment/Plan Status: stable, progressing Assessment/Plan: Assessment - Iron deficiency anemia - Jehovas, declines transfusion - lower abdominal TTP, ? etiology - b/l edema and anasarca - improved - azotemia - improved - CHF - COPD - CHF Recommendations - EPO - IV Iron - check CT abd/pelvis --> anasarca, diverticulosis - PPI - Will schedule for EGD tomorrow afternoon Jacob Deleon MD Jul 10, 2020 22:26
--- NOTE | 2020-07-10 22:58 | NUR ---
NURSE NOTES: Made aware of EGD ordered for tomorrow pending consent. Clarified and Dr. Deleon states it is scheduled for 3PM. Per , Lauren, "MD has yet to explain procedure, risks, and benefits." Provided MD with number, says he will call her in AM.
[2020-07-11] VITALS (9 sets, daily range): BP systolic 110–133; BP diastolic 50–63
--- NOTE | 2020-07-11 03:48 | NUR ---
NURSE NOTES: Bed bath and oral care provided. NPO initiated for EGD; pending consent.
--- NOTE | 2020-07-11 06:13 | NUR ---
NURSE NOTES: Pt states he gives consent to EGD, but prefers to get it done a different day. No distress noted. Still NPO status. Will monitor.
[2020-07-11 06:46] LABS: HEMATOCRIT 24.6 % (42.0-52.0); MEAN CORPUSCULAR VOLUME 83 FL (80-99); PLATELET COUNT 259 K/UL (150-450); RED BLOOD COUNT 2.96 M/UL (4.70-6.10); RED CELL DISTRIBUTION WIDTH 25.2 % (11.6-14.8); WHITE BLOOD COUNT 6.8 K/UL (4.8-10.8)
--- NOTE | 2020-07-11 06:46 | NUR ---
NURSE HAND-OFF REPORT: Important Events on Shift: PENDING EGD/CONSENT Patient Status: Stable Diet: NPO Midnight Pending Orders: Pending Results/Labs: Pending MD notification:N Latest Vital Signs: Temperature 97.8 , Pulse 63 , B/P 119 /52 , Respiratory Rate 20 , O2 SAT 97 , , O2 Flow Rate 2.0 . Vital Sign Comment: WNL EKG Rhythm: V/A-Paced Rhythm change?: N MD Notified?: N - MD Response: Latest Munroe Fall Score: 50 Fall Risk: High Risk Safety Measures: Call light Within Reach, Bed Alarm Zone 1, Side Rails Side Rails x3, Bed position Low and Locked. Fall Precautions: Yellow Socks Yellow Gown Door Sign Patient Fall Education Report given to JENNIFER Salas.
[2020-07-11] MEDS: Tamsulosin 0.4mg cap ORAL SCH (09:32)
[2020-07-11] MEDS: Furosemide 40mg tab ORAL SCH (09:32)
[2020-07-11] MEDS: Ascorbic Acid 500mg tab ORAL SCH ×2 (09:33→17:58)
[2020-07-11] MEDS: Spironolactone 25mg tab ORAL SCH (09:33)
[2020-07-11] MEDS: Amiodarone 200mg tab ORAL SCH (09:33)
--- NOTE | 2020-07-11 11:17 | Surgery Progress Note ---
Surgery Progress Note Subjective Symptoms: improved, tolerating diet, passing flatus, BM, pain decreased Objective Last 24 Hour Vital Signs Date Time Temp Pulse Resp B/P (MAP) Pulse Ox O2 Delivery O2 Flow Rate FiO2 07/11/20 04:00 63 07/11/20 04:00 97.8 63 20 119/52 (74) 97 07/11/20 00:00 97.7 60 20 121/59 (79) 98 07/11/20 00:00 61 07/10/20 22:17 98.9 07/10/20 21:00 Nasal Cannula 2.0 07/10/20 20:00 98.9 62 18 100/60 (73) 98 07/10/20 16:00 98.9 60 18 103/57 (72) 98 07/10/20 16:00 60 07/10/20 12:00 60 07/10/20 12:00 97.7 86 18 100/61 (74) 98 I&O Intake and Output 07/10/20 07/11/20 19:00 07:00 Intake Total 480 ml 300 ml Output Total 300 ml 300 ml Balance 180 ml 0 ml Intake Oral 480 ml 200 ml IV Total 100 ml Output Urine Total 300 ml 300 ml Dressing: saturated Cardiovascular: RSR Respiratory: clear, decreased breath sounds Abdomen: soft, non-tender, present bowel sounds, non-distended Extremities: no edema, no tenderness, no cyanosis Laboratory Tests Test 07/11/20 06:15 White Blood Count 6.8 K/UL (4.8-10.8) Red Blood Count 2.96 M/UL (4.70-6.10) L Hemoglobin 7.0 G/DL (14.2-18.0) L Hematocrit 24.6 % (42.0-52.0) L Mean Corpuscular Volume 83 FL (80-99) Mean Corpuscular Hemoglobin 23.7 PG (27.0-31.0) L Mean Corpuscular Hemoglobin Concent 28.6 G/DL (32.0-36.0) L Red Cell Distribution Width 25.2 % (11.6-14.8) H Platelet Count 259 K/UL (150-450) Mean Platelet Volume 8.0 FL (6.5-10.1) Neutrophils (%) (Auto) % (45.0-75.0) Lymphocytes (%) (Auto) % (20.0-45.0) Monocytes (%) (Auto) % (1.0-10.0) Eosinophils (%) (Auto) % (0.0-3.0) Basophils (%) (Auto) % (0.0-2.0) Differential Total Cells Counted 100 Neutrophils % (Manual) 73 % (45-75) Lymphocytes % (Manual) 18 % (20-45) L Monocytes % (Manual) 7 % (1-10) Eosinophils % (Manual) 2 % (0-3) Basophils % (Manual) 0 % (0-2) Band Neutrophils 0 % (0-8) Platelet Estimate Adequate Platelet Morphology Normal Polychromasia 1+ Hypochromasia 2+ Anisocytosis 3+ Target Cells Occasional Acanthocytes Occasional Schistocytes 1+ Plan Problems: (1) Anemia (2) Chronic obstructive pulmonary disease (3) Sacral decubitus ulcer Assessment & Plan: Pt presented on admission with multiple Pressure Injuries. Sacral Pressure Injury resolving(L)1.5cm x (W)0.5cm. Base of wound is pink with maceration. Multiple Ulcerations at base of Scrotum . Wounds are resolving(#1) Full thickness Pressure Injury base of wound resolving. Base of wound is 50% mihai 50% pink epithelial(L)2cm x (W)1.2cm. Edges are adherent to base of wound. NO exudate noted. (#2)Wound R testicle resolving. Adams epithelial at base of wound. No exudate noted (L)2cm x (W)1.2cm. (#3)Wound that is proximally to above documented wounds is also resolving(L)1cm x (W)1cm. Base of wound is 25% mihai ,75% surrounding pink epithelial.. L Heel has resolved. Heel is boggy but blanchable and non-tender when palpated R heel has resolved. R heel is boggy but blanchable and non-tender when palpated. Pt is frequently and heavily incontinent of Bladder. place urinary pouch to minimize further skin breakdown from incontinence. Pt is well endowed and unable to place urinary pouch. Ok to improvise with Fecal pouch to contain incontinence. Fecal pouch in place and attached to drainage bag. DAILY ESTIMATED NEEDS: Needs based on Cardiac, wound 88kg abw 25-35 kcals/kg 1129-2891 total kcals 1.25-1.5 g protein/kg 110-132 g total protein Fluid per MD, on lasix NUTRITION DIAGNOSIS: Increased kcal and pro needs r/t wound healing as evidenced by w/ full thickness scrotal wound, refer to full wound care eval. CURRENT DIET:CLEAR LIQUID DIET (SINCE 07/02) PO DIET RECOMMENDATIONS: Liberalized Regular diet/ texture as tolerated w/ variable po intake ADDITIONAL RECOMMENDATIONS: 1) CALIBRATED BED SCALE wt 2) On lasix, monitor lytes daily 3) Monitor for diet advancement- on CLD since 07/02 -> continue Ensure Clear TID w/ CLD; Ensure Enlive w/ advanced diet 4) POT PULLER eval for appropriate texture w/ diet advancement 5) WOUND CARE: continue MVI and Vit C KELLEY BID added to tray (4) PNA (pneumonia) (5) Elevated troponin (6) UTI (lower urinary tract infection) (7) Acute exacerbation of CHF (congestive heart failure) (8) UTI (lower urinary tract infection) (9) Atrial fibrillation (10) CHF (congestive heart failure) (11) Orthopnea (12) Dyspnea on exertion (13) Swelling of lower extremity (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 (16) Hemoptysis (17) Stroke (18) COPD exacerbation (19) Acute exacerbation of CHF (congestive heart failure) (20) Epistaxis Erlin Kearns Jul 11, 2020 11:17
--- NOTE | 2020-07-11 14:25 | General Progress Note ---
Subjective ROS Limited/Unobtainable: No Constitutional: Reports: malaise, weakness HEENT: Reports: no symptoms Cardiovascular: Reports: edema Respiratory: Reports: cough, shortness of breath Gastrointestinal/Abdominal: Reports: no symptoms Genitourinary: Reports: no symptoms Neurologic/Psychiatric: Reports: pre-existing deficit Endocrine: Reports: no symptoms Hematologic/Lymphatic: Reports: anemia Allergies: Coded Allergies: No Known Allergies (Verified , 01/23/09) All Systems: reviewed and negative except above Subjective No new complaints. Currently resting. N.p.o. for possible EGD later today. CT scan noted-extensive anasarca and edema likely due to CHF. Hemoglobin now 7. No reports of bleeding. Objective Last 24 Hour Vital Signs Date Time Temp Pulse Resp B/P (MAP) Pulse Ox O2 Delivery O2 Flow Rate FiO2 07/11/20 12:00 97.7 61 18 128/57 (80) 100 07/11/20 12:00 60 07/11/20 09:00 Nasal Cannula 2.0 07/11/20 08:00 60 07/11/20 08:00 97.3 60 20 124/59 (80) 99 07/11/20 04:00 63 07/11/20 04:00 97.8 63 20 119/52 (74) 97 07/11/20 00:00 97.7 60 20 121/59 (79) 98 07/11/20 00:00 61 07/10/20 22:17 98.9 07/10/20 21:00 Nasal Cannula 2.0 07/10/20 20:00 98.9 62 18 100/60 (73) 98 07/10/20 16:00 98.9 60 18 103/57 (72) 98 07/10/20 16:00 60 Intake and Output 07/10/20 07/11/20 19:00 07:00 Intake Total 480 ml 300 ml Output Total 300 ml 300 ml Balance 180 ml 0 ml Intake Oral 480 ml 200 ml IV Total 100 ml Output Urine Total 300 ml 300 ml Laboratory Tests 07/11/20 06:15: White Blood Count 6.8, Red Blood Count 2.96L, Hemoglobin 7.0L, Hematocrit 24.6L, Mean Corpuscular Volume 83, Mean Corpuscular Hemoglobin 23.7L, Mean Corpuscular Hemoglobin Concent 28.6L, Red Cell Distribution Width 25.2H, Platelet Count 259, Mean Platelet Volume 8.0, Neutrophils (%) (Auto) , Lymphocytes (%) (Auto) , Monocytes (%) (Auto) , Eosinophils (%) (Auto) , Basophils (%) (Auto) , Different ial Total Cells Counted 100, Neutrophils % (Manual) 73, Lymphocytes % (Manual) 18L, Monocytes % (Manual) 7, Eosinophils % (Manual) 2, Basophils % (Manual) 0, Band Neutrophils 0, Platelet Estimate Adequate, Platelet Morphology Normal, P olychromasia 1+, Hypochromasia 2+, Anisocytosis 3+, Target Cells Occasional, Acanthocytes Occasional, Schistocytes 1+ Height (Feet): 6 Height (Inches): 1.00 Weight (Pounds): 180 Objective General Appearance: WD/WN, alert, confused EENT: normal ENT inspection Neck: normal alignment, supple Cardiovascular: normal rate, regular rhythm Respiratory/Chest: chest wall non-tender, lungs clear, normal breath sounds, no respiratory distress, no accessory muscle use Abdomen: normal bowel sounds, non tender, soft, no organomegaly Edema: 3+ Pedal (L), 3+ Pedal (R) Edema: severe edema Neurologic: information technology associate II-XII 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, alert, responsive Skin: normal pigmentation, warm/dry Assessment/Plan Problem List: (1) Acute exacerbation of CHF (congestive heart failure) (2) Swelling of lower extremity ICD Codes: M79.89 - Other specified soft tissue disorders SNOMED: 356822639, 212961825 (3) Orthopnea (4) CHF (congestive heart failure) ICD Codes: I50.9 - CHF (congestive heart failure) SNOMED: 84301228 (5) Atrial fibrillation ICD Codes: I48.91 - Atrial fibrillation SNOMED: 27073718 (6) Anemia ICD Codes: D64.9 - Anemia, unspecified SNOMED: 263150053 (7) Elevated troponin ICD Codes: R74.8 - Elevated troponin SNOMED: 717215899 Status: stable, progressing Assessment/Plan: po lasix Elevate legs Monitor renal function and lytes with diuresis Continue Epogen and iron supplements refusing transfusion- pt jehovahs witness monitor labs as needed-try to avoid unnecessary lab draws Monitor for bleeding ppi rx monitor labs Endoscopy later today probably needs snf. prefers to take pt home with home health pt/ot Sumit Hallman MD Jul 11, 2020 14:25
[2020-07-11] MEDS ORDERED: Metoclopramide 10mg/2ml Inj IVP PRN (15:00)
[2020-07-11] MEDS ORDERED: Atropine Sulfate 0.4mg/ml inj IVP PRN (15:00)
[2020-07-11] MEDS ORDERED: DiphenhydrAMINE 50mg/ml Inj IVP PRN (15:00)
[2020-07-11] MEDS ORDERED: LR 1000ml 1,000 ML IVLG SCH (15:00)
[2020-07-11] MEDS ORDERED: Lidocaine 1% MPF 10mg/ml 5ml ONE (15:00)
[2020-07-11] MEDS ORDERED: Hydromorphone 0.5mg/0.5ml inj IVP PRN (15:00)
[2020-07-11] MEDS ORDERED: HYDROcodone/Acetamin 7.5/325 tab ORAL PRN (15:00)
[2020-07-11] MEDS ORDERED: fentaNYL 100 mcg/2 mL IV PRN (15:00)
[2020-07-11] MEDS ORDERED: Midazolam 2mg/2ml Inj IVP PRN (15:00)
[2020-07-11] MEDS ORDERED: Ketorolac 30mg Inj IV PRN ×2 (15:00)
[2020-07-11] MEDS ORDERED: Labetalol 5mg/ml 20ml vial IV PRN (15:00)
[2020-07-11] MEDS ORDERED: oxyCODONE HCL/Acetaminophen 5/325mg ORAL PRN (15:00)
[2020-07-11] MEDS ORDERED: HYDROcodone/Acetamin 5/325 tab ORAL PRN (15:00)
[2020-07-11] MEDS ORDERED: LORazepam Inj 2mg/ml 1ml IV PRN (15:00)
[2020-07-11] MEDS ORDERED: Meperidine 25mg/1ml Inj (FOR RIGORS ONLY) IV PRN (15:00)
--- NOTE | 2020-07-11 15:11 | General Progress Note ---
Subjective Allergies: Coded Allergies: No Known Allergies (Verified , 01/23/09) Subjective no new complaints no abdominal complaints H&H noted - now Hg 7.0 Objective Last 24 Hour Vital Signs Date Time Temp Pulse Resp B/P (MAP) Pulse Ox O2 Delivery O2 Flow Rate FiO2 07/11/20 12:00 97.7 61 18 128/57 (80) 100 07/11/20 12:00 60 07/11/20 09:00 Nasal Cannula 2.0 07/11/20 08:00 60 07/11/20 08:00 97.3 60 20 124/59 (80) 99 07/11/20 04:00 63 07/11/20 04:00 97.8 63 20 119/52 (74) 97 07/11/20 00:00 97.7 60 20 121/59 (79) 98 07/11/20 00:00 61 07/10/20 22:17 98.9 07/10/20 21:00 Nasal Cannula 2.0 07/10/20 20:00 98.9 62 18 100/60 (73) 98 07/10/20 16:00 98.9 60 18 103/57 (72) 98 07/10/20 16:00 60 Intake and Output 07/10/20 07/11/20 19:00 07:00 Intake Total 480 ml 300 ml Output Total 300 ml 300 ml Balance 180 ml 0 ml Intake Oral 480 ml 200 ml IV Total 100 ml Output Urine Total 300 ml 300 ml Laboratory Tests 07/11/20 06:15: White Blood Count 6.8, Red Blood Count 2.96L, Hemoglobin 7.0L, Hematocrit 24.6L, Mean Corpuscular Volume 83, Mean Corpuscular Hemoglobin 23.7L, Mean Corpuscular Hemoglobin Concent 28.6L, Red Cell Distribution Width 25.2H, Platelet Count 259, Mean Platelet Volume 8.0, Neutrophils (%) (Auto) , Lymphocytes (%) (Auto) , Monocytes (%) (Auto) , Eosinophils (%) (Auto) , Basophils (%) (Auto) , Differential Total Cells Counted 100, Neutrophils % (Manual) 73, Lymphocytes % (Manual) 18L, Monocytes % (Manual) 7, Eosinophils % (Manual) 2, Basophils % (Manual) 0, Band Neutrophils 0, Platelet Estimate Adequate, Platelet Morphology Normal, Polychromasia 1+, Hypochromasia 2+, Anisocytosis 3+, Target Cells Occasional, Acanthocytes Occasional, Schistocytes 1+ Height (Feet): 6 Height (Inches): 1.00 Weight (Pounds): 180 Objective WDWN NCAT supple CTA RRR abd soft ND trace edema Assessment/Plan Status: stable, progressing Assessment/Plan: Assessment - Iron deficiency anemia - Jehovas, declines transfusion - lower abdominal TTP, ? etiology - b/l edema and anasarca - improved - azotemia - improved - CHF - COPD - CHF Recommendations - EPO - IV Iron - check CT abd/pelvis --> anasarca, diverticulosis - PPI - EGD today Jacob Deleon MD Jul 11, 2020 15:11
--- NOTE | 2020-07-11 15:14 | Pre-Procedure Note/Attestation ---
Pre-Procedure Note/Attestation Complete Prior to Procedure Planned Procedure: not applicable Procedure Narrative: endoscopy Indications for Procedure Pre-Operative Diagnosis: Anemia Attestation I attest that I discussed the nature of the procedure; its benefits; risks and complications; and alternatives (and the risks and benefits of such alternatives), prior to the procedure, with the patient (or the patient's legal desk representative). I attest that, if there was a reasonable possibility of needing a blood transfus ion, the patient (or the patient's legal desk representative) was given the [facility] standardized written summary, pursuant to the Dionisio Lockbourne Blood Safety Act ([place] Health and Safety Code # 1645, as amended). However, the patient is Jehovas Witness and absolutely refuses blood transfusion I attest that I re-evaluated the patient just prior to the surgery and that there has been no change in the patient's H&P, except as documented below: Jacob Deleon MD Jul 11, 2020 15:14
[2020-07-11] MEDS ORDERED: NS 500ML IVPB ONE (15:15)
--- NOTE | 2020-07-11 15:24 | Endoscopy Procedure Note ---
Endoscopy Procedure Note General Indication for Procedure: anemia Procedures Performed: EGD Operative Findings/Diagnosis: normal Specimen: none Pt Tolerated Procedure Well: Yes Estimated Blood Loss: none Anesthesia Anesthesiologist: Peterson Anesthesia: MAC Medications Medication Given: see anesthesia record Inserted Devices Implant(s) used?: No GI Core Measures 50 yrs or older w/o bx or poly: Not Applicable 10yrs. F/U recommended: Not Applicable Jacob Deleon MD Jul 11, 2020 15:24
--- NOTE | 2020-07-11 15:25 | Brief Operative Note ---
Immediate Post Operative Note Operative Note Chief Complaint: Anemia Pre-op Diagnosis: Anemia Procedure: EGD Post-op Diagnosis: Normal Surgeon: Adrienne Anesthesiologist: Peterson Anesthesia: MAC Specimen: none Complications: none Condition: stable Fluids: Per anesthesia Estimated Blood Loss: none Drains: none Implant(s) used?: No Jacob Deleon MD Jul 11, 2020 15:25
--- NOTE | 2020-07-11 15:28 | Anethesia Preoperative Eval ---
Anesthesia Pre-op PMH/ROS General Date of Evaluation: Jul 11, 2020 Time of Evaluation: 14:52 Anesthesiologist: Festus ASA Score: ASA 4 Mallampati Score Class I : Soft palate, uvula, fauces, pillars visible Class II: Soft palate, uvula, fauces visible Class III: Soft palate, base of uvula visible Class IV: Only hard plate visible Mallampati Classification: Class II Surgeon: Adrienne Diagnosis: Anemia Surgical Procedure: EGD Anesthesia History: none Family History: no anesthesia problems Allergies: Coded Allergies: No Known Allergies (Verified , 01/23/09) Medications: see eMAR Patient NPO?: Yes Past Medical History Cardiovascular: Reports: HTN, CAD, valve dz - Aortic Valve repaired, other - Aortic Aneurysm, CHF, Pacemaker, HL Pulmonary: Reports: asthma - Bronchitis, COPD Gastrointestinal/Genitourinary: Reports: other - BPH HEENT: Reports: cataract (L), cataract (R) Hematology/Immune: Reports: anemia Musculoskeletal/Integumentary: Reports: OA, edema, other - Jehovahs Witness, Gout Anesthesia Pre-op Phys. Exam Physician Exam Last Vital Signs Date Time Temp Pulse Resp B/P (MAP) Pulse Ox O2 Delivery O2 Flow Rate FiO2 07/11/20 12:00 97.7 61 18 128/57 (80) 100 07/11/20 09:00 Nasal Cannula 2.0 Constitutional: NAD Neurologic: CN 2-12 intact Cardiovascular: RRR Respiratory: CTA Gastrointestinal: S/NT/ND Airway Exam Mallampati Score: Class II MO: full ROM: limited Teeth: missing, intact Anesthesia Pre-op A/P Labs Hematology Test 07/11/20 06:15 White Blood Count 6.8 K/UL (4.8-10.8) Red Blood Count 2.96 M/UL (4.70-6.10) L Hemoglobin 7.0 G/DL (14.2-18.0) L Hematocrit 24.6 % (42.0-52.0) L Mean Corpuscular Volume 83 FL (80-99) Mean Corpuscular Hemoglobin 23.7 PG (27.0-31.0) L Mean Corpuscular Hemoglobin Concent 28.6 G/DL (32.0-36.0) L Red Cell Distribution Width 25.2 % (11.6-14.8) H Platelet Count 259 K/UL (150-450) Mean Platelet Volume 8.0 FL (6.5-10.1) Neutrophils (%) (Auto) % (45.0-75.0) Lymphocytes (%) (Auto) % (20.0-45.0) Monocytes (%) (Auto) % (1.0-10.0) Eosinophils (%) (Auto) % (0.0-3.0) Basophils (%) (Auto) % (0.0-2.0) Differential Total Cells Counted 100 Neutrophils % (Manual) 73 % (45-75) Lymphocytes % (Manual) 18 % (20-45) L Monocytes % (Manual) 7 % (1-10) Eosinophils % (Manual) 2 % (0-3) Basophils % (Manual) 0 % (0-2) Band Neutrophils 0 % (0-8) Platelet Estimate Adequate Platelet Morphology Normal Polychromasia 1+ Hypochromasia 2+ Anisocytosis 3+ Target Cells Occasional Acanthocytes Occasional Schistocytes 1+ Risk Assessment & Plan Assessment: ASA 4 Plan: TIVA Status Change Before Surgery: Rory Balderrama MD Jul 11, 2020 15:28
--- NOTE | 2020-07-11 15:33 | Immediate Post-Op Evaluation ---
Immediate Post-Op Evalulation Immediate Post-Op Evalulation Procedure: EGD Date of Evaluation: Jul 11, 2020 Time of Evaluation: 15:58 IV Fluids: 200 NS Blood Products: 0 Estimated Blood Loss: 1 Urinary Output: 0 Blood Pressure Systolic: 131 Blood Pressure Diastolic: 63 Pulse Rate: 61 Respiratory Rate: 16 O2 Sat by Pulse Oximetry: 100 Pain Score (1-10): 1 Nausea: No Vomiting: No Complications 0 Patient Status: awake, reacts, patent, none Hydration Status: adequate Rory Mortensen MD Jul 11, 2020 15:32
--- NOTE | 2020-07-11 15:33 | 48 Hour Post Anesthesia Eval ---
Post Anesthesia Evaluation Procedure: EGD Date of Evaluation: Jul 11, 2020 Time of Evaluation: 18:12 Blood Pressure Systolic: 127 0: 64 Pulse Rate: 61 Respiratory Rate: 18 Temperature (Fahrenheit): 98.6 O2 Sat by Pulse Oximetry: 100 Airway: patent Nausea: No Vomiting: No Pain Intensity: 1 Hydration Status: adequate Cardiopulmonary Status: Stable Mental Status/LOC: patient returned to baseline Follow-up Care/Observations: 0 Post-Anesthesia Complications: 0 Follow-up care needed: N/A Rory Mortensen MD Jul 11, 2020 15:33
--- NOTE | 2020-07-11 19:22 | NUR ---
NURSE NOTES: Received report from JENNIFER Green. Pt is asleep, easily arousable to name. A/Ox4, no acute distress noted, no complaints of pain. SR paced on monitor. spo2 100% on 2L NC, titrated down to 1L NC, will continue to monitor oxygenation. Breathing is even and unlabored. condom cath intact and draining well to gravity yellow urine. Bed is alarmed, locked, and in lowest position. Call light within reach. Will continue plan of care. Will continue to monitor.
[2020-07-11] MEDS: Atorvastatin 20mg tab ORAL SCH (20:19)
[2020-07-11] MEDS: HYDROcodone/Acetamin 5/325 tab ORAL PRN (22:34)
[2020-07-12] VITALS: BP 99/47
[2020-07-12 04:00] VITALS: BP 105/50
--- NOTE | 2020-07-12 05:58 | NUR ---
NURSE NOTES: Pt cleaned and turned. No BM noted. Linens and gown changed. Sacral wound dressed. Pt tolerated well. Pt weaned to RA from 1L, spo2 94%. Will continue plan of care, will continue to monitor.
--- NOTE | 2020-07-12 07:01 | NUR ---
NURSE HAND-OFF REPORT: Important Events on Shift:[No acute events] Patient Status: [Stable] Diet: [Cardiac] Pending Orders: [NA] Pending Results/Labs:[NA] Pending MD notification:[NA] Latest Vital Signs: Temperature 97.9 , Pulse 60 , B/P 105 /50 , Respiratory Rate 20 , O2 SAT 97 , Nasal Cannula, O2 Flow Rate 1.0 . Vital Sign Comment: [Stable] EKG Rhythm: A-Paced w/ BBB Rhythm change?: N MD Notified?: N - MD Response: Latest [place] Fall Score: 50 Fall Risk: High Risk Safety Measures: Call light Within Reach, Bed Alarm Zone 1, Side Rails Side Rails x3, Bed position Low and Locked. Fall Precautions: Yellow Socks Yellow Gown Door Sign Patient Fall Education Report given to [JENNIFER Green].
[2020-07-12 08:00] VITALS: BP 107/54
[2020-07-12] MEDS: Tamsulosin 0.4mg cap ORAL SCH (08:17)
[2020-07-12] MEDS: Spironolactone 25mg tab ORAL SCH (08:17)
[2020-07-12] MEDS: Ascorbic Acid 500mg tab ORAL SCH ×2 (08:18→17:53)
[2020-07-12] MEDS: HYDROcodone/Acetamin 5/325 tab ORAL PRN ×2 (08:19→16:01)
[2020-07-12] MEDS: Amiodarone 200mg tab ORAL SCH (08:19)
[2020-07-12] MEDS: Furosemide 40mg tab ORAL SCH (08:27)
--- NOTE | 2020-07-12 09:11 | Surgery Progress Note ---
Surgery Progress Note Subjective Additional Comments EGD noted h/h comfortable no complaints Objective Last 24 Hour Vital Signs Date Time Temp Pulse Resp B/P (MAP) Pulse Ox O2 Delivery O2 Flow Rate FiO2 07/12/20 08:00 97.7 20 107/54 (71) 97 07/12/20 04:00 97.9 20 105/50 (68) 97 07/12/20 04:00 60 07/12/20 00:00 98.0 20 99/47 (64) 100 07/12/20 00:00 60 07/11/20 23:06 97.7 07/11/20 21:00 Nasal Cannula 1.0 07/11/20 20:00 60 07/11/20 20:00 97.7 20 110/50 (70) 100 07/11/20 16:05 97.5 60 24 133/59 100 Nasal Cannula 3 07/11/20 16:00 60 07/11/20 15:55 60 23 129/61 100 Nasal Cannula 3 07/11/20 15:45 60 25 131/63 100 Nasal Cannula 3 07/11/20 15:44 61 18 100 07/11/20 15:40 98.7 61 22 122/60 100 Nasal Cannula 3 07/11/20 12:00 97.7 61 18 128/57 (80) 100 07/11/20 12:00 60 I&O Intake and Output 07/11/20 07/12/20 19:00 07:00 Intake Total 420 ml 300 ml Output Total 2500 ml 400 ml Balance -2080 ml -100 ml Intake Oral 200 ml 300 ml IV Total 220 ml Output Urine Total 2500 ml 400 ml Dressing: other Wound: other Cardiovascular: RSR Respiratory: decreased breath sounds Abdomen: soft, flat, non-tender, present bowel sounds Extremities: no tenderness, no cyanosis Plan Problems: (1) Anemia (2) Chronic obstructive pulmonary disease (3) Sacral decubitus ulcer Assessment & Plan: Pt presented on admission with multiple Pressure Injuries. Sacral Pressure Injury resolving(L)1.5cm x (W)0.5cm. Base of wound is pink with maceration. Multiple Ulcerations at base of Scrotum . Wounds are resolving(#1) Full thickness Pressure Injury base of wound resolving. Base of wound is 50% mihai 50% pink epithelial(L)2cm x (W)1.2cm. Edges are adherent to base of wound. NO exudate noted. (#2)Wound R testicle resolving. [place] epithelial at base of wound. No exudate noted (L)2cm x (W)1.2cm. (#3)Wound that is proximally to above documented wounds is also resolving(L)1cm x (W)1cm. Base of wound is 25% mihai ,75% surrounding pink epithelial.. L Heel has resolved. Heel is boggy but blanchable and non-tender when palpated R heel has resolved. R heel is boggy but blanchable and non-tender when palpated. Pt is frequently and heavily incontinent of Bladder. place urinary pouch to minimize further skin breakdown from incontinence. Pt is well endowed and unable to place urinary pouch. Ok to improvise with Fecal pouch to contain incontinence. Fecal pouch in place and attached to drainage bag. DAILY ESTIMATED NEEDS: Needs based on Cardiac, wound 88kg abw 25-35 kcals/kg 6508-4867 total kcals 1.25-1.5 g protein/kg 110-132 g total protein Fluid per MD, on lasix NUTRITION DIAGNOSIS: Increased kcal and pro needs r/t wound healing as evidenced by w/ full thickness scrotal wound, refer to full wound care eval. 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 (16) Hemoptysis (17) Stroke (18) COPD exacerbation (19) Acute exacerbation of CHF (congestive heart failure) (20) Epistaxis Erlin Kearns Jul 12, 2020 09:11
[2020-07-12 12:00] VITALS: BP 121/60
--- NOTE | 2020-07-12 14:05 | General Progress Note ---
Subjective ROS Limited/Unobtainable: No Constitutional: Reports: malaise, weakness HEENT: Reports: no symptoms Cardiovascular: Reports: edema Respiratory: Reports: no symptoms Gastrointestinal/Abdominal: Reports: no symptoms Genitourinary: Reports: no symptoms Neurologic/Psychiatric: Reports: no symptoms Endocrine: Reports: no symptoms Hematologic/Lymphatic: Reports: anemia Allergies: Coded Allergies: No Known Allergies (Verified , 01/23/09) All Systems: reviewed and negative except above Subjective no events. w/o complaints. wants to go home. s/p endoscopy. no chest pain or sob. no fever or chills. Objective Last 24 Hour Vital Signs Date Time Temp Pulse Resp B/P (MAP) Pulse Ox O2 Delivery O2 Flow Rate FiO2 07/12/20 12:00 97.9 20 121/60 (80) 97 07/12/20 12:00 60 07/12/20 09:00 Nasal Cannula 2.0 07/12/20 08:00 97.7 20 107/54 (71) 97 07/12/20 08:00 60 07/12/20 04:00 97.9 20 105/50 (68) 97 07/12/20 04:00 60 07/12/20 00:00 98.0 20 99/47 (64) 100 07/12/20 00:00 60 07/11/20 23:06 97.7 07/11/20 21:00 Nasal Cannula 1.0 07/11/20 20:00 60 07/11/20 20:00 97.7 20 110/50 (70) 100 07/11/20 16:05 97.5 60 24 133/59 100 Nasal Cannula 3 07/11/20 16:00 60 07/11/20 15:55 60 23 129/61 100 Nasal Cannula 3 07/11/20 15:45 60 25 131/63 100 Nasal Cannula 3 07/11/20 15:44 61 18 100 07/11/20 15:40 98.7 61 22 122/60 100 Nasal Cannula 3 Intake and Output 07/11/20 07/12/20 19:00 07:00 Intake Total 420 ml 300 ml Output Total 2500 ml 400 ml Balance -2080 ml -100 ml Intake Oral 200 ml 300 ml IV Total 220 ml Output Urine Total 2500 ml 400 ml Height (Feet): 6 Height (Inches): 1.00 Weight (Pounds): 180 Objective General Appearance: WD/WN, alert, confused EENT: normal ENT inspection Neck: normal alignment, supple Cardiovascular: normal rate, regular rhythm Respiratory/Chest: chest wall non-tender, lungs clear, normal breath sounds, no respiratory distress, no accessory muscle use Abdomen: normal bowel sounds, non tender, soft, no organomegaly Edema: 3+ Pedal (L), 3+ Pedal (R) Edema: severe edema 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, alert, responsive Skin: normal pigmentation, warm/dry Assessment/Plan Problem List: (1) Acute exacerbation of CHF (congestive heart failure) (2) Swelling of lower extremity ICD Codes: M79.89 - Other specified soft tissue disorders SNOMED: 017949396, 064517934 (3) Orthopnea (4) CHF (congestive heart failure) ICD Codes: I50.9 - CHF (congestive heart failure) SNOMED: 05229051 (5) Atrial fibrillation ICD Codes: I48.91 - Atrial fibrillation SNOMED: 25925931 (6) Anemia ICD Codes: D64.9 - Anemia, unspecified SNOMED: 183987896 (7) Elevated troponin ICD Codes: R74.8 - Elevated troponin SNOMED: 613153271 Status: stable, progressing Assessment/Plan: po lasix Elevate legs Monitor renal function and lytes with diuresis Continue Epogen and iron supplements monitor labs as needed-try to avoid unnecessary lab draws Monitor for bleeding ppi rx monitor labs probably needs snf. prefers to take pt home with home health pt/ot Sumit Hallman MD Jul 12, 2020 14:05
[2020-07-12 16:00] VITALS: BP 108/59
--- NOTE | 2020-07-12 17:57 | NUR ---
Patient's oxygen saturation is 97% on room air.
--- NOTE | 2020-07-12 18:26 | Cardiology Progress Note ---
Subjective DATE OF SERVICE: Jul 11, 2020 (late entry due to computer malfxn) EGD completed today without complication; no bleeding source found. No CP. No SOB in bedbound state or with limited mobilization. No N/V/D or pain. Appetite fair. Hemoglobin dropped from 6.8 to 6.0 on 07/04, and back to 6.7 yesterday; no signs of GI blood loss. Very weak , but refuses a SNF. Objective Last 24 Hour Vital Signs reviewed HEENT: normal ENT inspection RHYTHM: Afib, other - demand Ventric pacing LUNGS: diminished breath sounds CARDIAC: normal rate, normal S1 and S2, irregularly irregular, systolic murmur - 1/6 apical systolic murmur ABDOMEN: normal bowel sounds EXTREMITIES: normal range of motion, +3 edema Assessment/Plan Assessment/Plan Severe anemia GI bleed Jehovahs witness Ac/chr diastolic CHF now compensated PAFib Pacemaker Hx thoracic aorta repair Elev LFT's may be due to passive congestion COPD Conjunctivitis Abd pain Ac/chr renal failure - improved Orthostatic risk Hypomagnesemia Consider colonoscopy when hb more stable; monitor blood counts. Continue hydrocodone prn for back pain and CROSS Diuresis adjustment based on clinical status. O2 suppl IV iron and sq EPO Titrate anti-failure rx - decrease for low range BP. No aspirin or anticoag rx; off NSAID's Topical abx IV magnesium repl and oral potassium rx as needed Yvan Encarnacion MD Jul 12, 2020 18:26
--- NOTE | 2020-07-12 18:28 | Cardiology Progress Note ---
Subjective DATE OF SERVICE: Jul 12, 2020 EGD completed 07/11/20 without complication; no bleeding source found. No CP. No SOB in bedbound state or with limited mobilization. No N/V/D or pain. Appetite fair. Hemoglobin dropped from 6.8 to 6.0 on 07/04, and back to 7gm/dl today; no signs of GI blood loss. Very weak , but refuses a SNF. Objective Last 24 Hour Vital Signs Date Time Temp Pulse Resp B/P (MAP) Pulse Ox O2 Delivery O2 Flow Rate FiO2 07/12/20 16:00 98.0 61 20 108/59 (75) 97 07/12/20 16:00 60 07/12/20 12:00 97.9 20 121/60 (80) 97 07/12/20 12:00 60 07/12/20 09:00 Nasal Cannula 2.0 07/12/20 08:00 97.7 20 107/54 (71) 97 07/12/20 08:00 60 07/12/20 04:00 97.9 20 105/50 (68) 97 07/12/20 04:00 60 07/12/20 00:00 98.0 20 99/47 (64) 100 07/12/20 00:00 60 07/11/20 23:06 97.7 07/11/20 21:00 Nasal Cannula 1.0 07/11/20 20:00 60 07/11/20 20:00 97.7 20 110/50 (70) 100 HEENT: normal ENT inspection RHYTHM: Afib, other - demand Ventric pacing LUNGS: diminished breath sounds CARDIAC: normal rate, normal S1 and S2, irregularly irregular, systolic murmur - 1/6 apical systolic murmur ABDOMEN: normal bowel sounds EXTREMITIES: normal range of motion, +3 edema Assessment/Plan Assessment/Plan Severe anemia GI bleed Jehovahs witness Ac/chr diastolic CHF now compensated PAFib Pacemaker Hx thoracic aorta repair Elev LFT's may be due to passive congestion COPD Conjunctivitis Abd pain Ac/chr renal failure - improved Orthostatic risk Hypomagnesemia Consider colonoscopy when hb more stable; monitor blood counts. Continue hydrocodone prn for back pain and CROSS Diuresis adjustment based on clinical status. O2 suppl IV iron and sq EPO Titrate anti-failure rx - decrease for low range BP. No aspirin or anticoag rx; off NSAID's Topical abx IV magnesium repl and oral potassium rx as needed Yvan Encarnacion MD Jul 12, 2020 18:28
--- NOTE | 2020-07-12 19:11 | General Progress Note ---
Subjective Allergies: Coded Allergies: No Known Allergies (Verified , 01/23/09) Subjective no new complaints no abdominal complaints Objective Last 24 Hour Vital Signs Date Time Temp Pulse Resp B/P (MAP) Pulse Ox O2 Delivery O2 Flow Rate FiO2 07/12/20 16:00 98.0 61 20 108/59 (75) 97 07/12/20 16:00 60 07/12/20 12:00 97.9 20 121/60 (80) 97 07/12/20 12:00 60 07/12/20 09:00 Nasal Cannula 2.0 07/12/20 08:00 97.7 20 107/54 (71) 97 07/12/20 08:00 60 07/12/20 04:00 97.9 20 105/50 (68) 97 07/12/20 04:00 60 07/12/20 00:00 98.0 20 99/47 (64) 100 07/12/20 00:00 60 07/11/20 23:06 97.7 07/11/20 21:00 Nasal Cannula 1.0 07/11/20 20:00 60 07/11/20 20:00 97.7 20 110/50 (70) 100 Intake and Output 07/11/20 07/12/20 19:00 07:00 Intake Total 420 ml 300 ml Output Total 2500 ml 400 ml Balance -2080 ml -100 ml Intake Oral 200 ml 300 ml IV Total 220 ml Output Urine Total 2500 ml 400 ml Height (Feet): 6 Height (Inches): 1.00 Weight (Pounds): 180 Objective WDWN NCAT supple CTA RRR abd soft ND trace edema Assessment/Plan Status: stable, progressing Assessment/Plan: Assessment - Iron deficiency anemia - negative EGD - Rayne, declines transfusion - lower abdominal TTP, ? etiology - b/l edema and anasarca - improved - azotemia - improved - CHF - COPD - CHF Recommendations - EPO - IV Iron - check CT abd/pelvis --> anasarca, diverticulosis - PPI - Outpatient colonoscopy, once Hg 8.0 Jacob Deleon MD Jul 12, 2020 19:11
[2020-07-12 20:00] VITALS: BP 105/54
[2020-07-12] MEDS: Atorvastatin 20mg tab ORAL SCH (20:57)
[2020-07-12] MEDS: Epoetin Alfa-EPBX (NON ESRD)10,000 unit/ml vial SUBQ SCH (20:58)
[2020-07-13] VITALS: BP 95/60
--- NOTE | 2020-07-13 03:35 | NUR ---
patient is awake, watching tv, and had his meds
[2020-07-13 04:00] VITALS: BP 100/50
[2020-07-13 07:31] LABS: HEMATOCRIT 23.8 % (42.0-52.0); MEAN CORPUSCULAR VOLUME 80 FL (80-99); PLATELET COUNT 255 K/UL (150-450); RED BLOOD COUNT 2.96 M/UL (4.70-6.10); RED CELL DISTRIBUTION WIDTH 24.8 % (11.6-14.8); WHITE BLOOD COUNT 7.2 K/UL (4.8-10.8)
[2020-07-13 07:33] LABS: HEMOGLOBIN 6.8 G/DL (14.2-18.0)
--- NOTE | 2020-07-13 07:47 | NUR ---
Received a call from Hannah in the lab and was notified that patient's hemoglobin is 6.8. Notified Dr. Kearns no new orders received. Also notified that patient is now refusing condom catheter. no new orders received.
[2020-07-13 08:00] VITALS: BP 116/51
[2020-07-13] MEDS: Amiodarone 200mg tab ORAL SCH (08:03)
[2020-07-13] MEDS: Ascorbic Acid 500mg tab ORAL SCH ×2 (08:03→17:49)
[2020-07-13] MEDS: Tamsulosin 0.4mg cap ORAL SCH (08:03)
[2020-07-13 08:04] LABS: ALBUMIN 2.8 G/DL (3.4-5.0); ALBUMIN/GLOBULIN RATIO 0.7 (1.0-2.7); BILIRUBIN,TOTAL 1.9 MG/DL (0.2-1.0); CALCIUM 10.6 MG/DL (8.5-10.1); CREATININE 1.7 MG/DL (0.55-1.30); POTASSIUM 4.2 MMOL/L (3.5-5.1)
[2020-07-13] MEDS: Spironolactone 25mg tab ORAL SCH (08:04)
[2020-07-13] MEDS: HYDROcodone/Acetamin 5/325 tab ORAL PRN ×2 (08:04→17:50)
[2020-07-13] MEDS: Furosemide 40mg tab ORAL SCH (08:04)
[2020-07-13 08:05] LABS: BILIRUBIN,DIRECT 1.1 MG/DL (0.0-0.3)
--- NOTE | 2020-07-13 11:06 | Surgery Progress Note ---
Surgery Progress Note Subjective Additional Comments refusing condom cath incontinence no n/v Objective Last 24 Hour Vital Signs Date Time Temp Pulse Resp B/P (MAP) Pulse Ox O2 Delivery O2 Flow Rate FiO2 07/13/20 09:00 Room Air 07/13/20 08:00 98.4 62 20 116/51 (72) 100 07/13/20 08:00 65 07/13/20 04:00 60 07/13/20 04:00 97.7 62 20 100/50 (67) 95 07/13/20 00:00 97.9 65 16 95/60 (72) 93 07/13/20 00:00 61 07/12/20 21:00 Nasal Cannula 2.0 07/12/20 20:00 60 07/12/20 20:00 97.7 62 16 105/54 (71) 97 07/12/20 16:00 98.0 61 20 108/59 (75) 97 07/12/20 16:00 60 07/12/20 12:00 97.9 20 121/60 (80) 97 07/12/20 12:00 60 I&O Intake and Output 07/12/20 07/13/20 19:00 07:00 Intake Total 720 ml 240 ml Output Total 850 ml Balance -130 ml 240 ml Intake Oral 720 ml 240 ml Output Urine Total 850 ml Dressing: saturated Cardiovascular: RSR Respiratory: decreased breath sounds Abdomen: soft, non-tender, present bowel sounds, non-distended Extremities: no tenderness, no cyanosis Laboratory Tests Test 07/13/20 07:07 White Blood Count 7.2 K/UL (4.8-10.8) Red Blood Count 2.96 M/UL (4.70-6.10) L Hemoglobin 6.8 G/DL (14.2-18.0) *L Hematocrit 23.8 % (42.0-52.0) L Mean Corpuscular Volume 80 FL (80-99) Mean Corpuscular Hemoglobin 23.1 PG (27.0-31.0) L Mean Corpuscular Hemoglobin Concent 28.7 G/DL (32.0-36.0) L Red Cell Distribution Width 24.8 % (11.6-14.8) H Platelet Count 255 K/UL (150-450) Mean Platelet Volume 6.1 FL (6.5-10.1) L Neutrophils (%) (Auto) % (45.0-75.0) Lymphocytes (%) (Auto) % (20.0-45.0) Monocytes (%) (Auto) % (1.0-10.0) Eosinophils (%) (Auto) % (0.0-3.0) Basophils (%) (Auto) % (0.0-2.0) Differential Total Cells Counted 100 Neutrophils % (Manual) 62 % (45-75) Lymphocytes % (Manual) 28 % (20-45) Monocytes % (Manual) 8 % (1-10) Eosinophils % (Manual) 2 % (0-3) Basophils % (Manual) 0 % (0-2) Band Neutrophils 0 % (0-8) Platelet Estimate Adequate Platelet Morphology Normal Polychromasia 1+ Hypochromasia 2+ Anisocytosis 3+ Target Cells Occasional Acanthocytes Occasional Schistocytes 1+ Sodium Level 140 MMOL/L (136-145) Potassium Level 4.2 MMOL/L (3.5-5.1) Chloride Level 105 MMOL/L (98-107) Carbon Dioxide Level 29 MMOL/L (21-32) Anion Gap 6 mmol/L (5-15) Blood Urea Nitrogen 30 mg/dL (7-18) H Creatinine 1.7 MG/DL (0.55-1.30) H Estimat Glomerular Filtration Rate 46.8 mL/min (>60) Glucose Level 84 MG/DL (74-106) Calcium Level 10.6 MG/DL (8.5-10.1) H Magnesium Level 1.9 MG/DL (1.8-2.4) Total Bilirubin 1.9 MG/DL (0.2-1.0) H Direct Bilirubin 1.1 MG/DL (0.0-0.3) H Aspartate Amino Transf (AST/SGOT) 26 U/L (15-37) Alanine Aminotransferase (ALT/SGPT) 10 U/L (12-78) L Alkaline Phosphatase 83 U/L (46-116) Pro-B-Type Natriuretic Peptide 5229 pg/mL (0-125) H Total Protein 7.1 G/DL (6.4-8.2) Albumin 2.8 G/DL (3.4-5.0) L Globulin 4.3 g/dL Albumin/Globulin Ratio 0.7 (1.0-2.7) L Plan Problems: (1) Anemia (2) Chronic obstructive pulmonary disease (3) Sacral decubitus ulcer Assessment & Plan: Pt presented on admission with multiple Pressure Injuries. Sacral Pressure Injury resolving(L)1.5cm x (W)0.5cm. Base of wound is pink with maceration. Multiple Ulcerations at base of Scrotum . Wounds are resolving(#1) Full thickness Pressure Injury base of wound resolving. Base of wound is 50% mihai 50% pink epithelial(L)2cm x (W)1.2cm. Edges are adherent to base of wound. NO exudate noted. (#2)Wound R testicle resolving. [place] epithelial at base of wound. No exudate noted (L)2cm x (W)1.2cm. (#3)Wound that is proximally to above documented wounds is also resolving(L)1cm x (W)1cm. Base of wound is 25% mihai ,75% surrounding pink epithelial.. L Heel has resolved. Heel is boggy but blanchable and non-tender when palpated R heel has resolved. R heel is boggy but blanchable and non-tender when palpate d. Pt is frequently and heavily incontinent of Bladder. place urinary pouch to minimize further skin breakdown from incontinence. Pt is well endowed and unable to place urinary pouch. Ok to improvise with Fecal pouch to contain incontinence. Fecal pouch in place and attached to drainage bag. DAILY ESTIMATED NEEDS: Needs based on Cardiac, wound 88kg abw 25-35 kcals/kg 3756-3825 total kcals 1.25-1.5 g protein/kg 110-132 g total protein Fluid per MD, on lasix NUTRITION DIAGNOSIS: Increased kcal and pro needs r/t wound healing as evidenced by w/ full thickness scrotal wound, refer to full wound care eval. 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 (16) Hemoptysis (17) Stroke (18) COPD exacerbation (19) Acute exacerbation of CHF (congestive heart failure) (20) Epistaxis Erlin Kearns Jul 13, 2020 11:06
[2020-07-13 12:00] VITALS: BP 107/47
--- NOTE | 2020-07-13 13:11 | General Progress Note ---
Subjective ROS Limited/Unobtainable: No Constitutional: Reports: malaise, weakness HEENT: Reports: no symptoms Cardiovascular: Reports: no symptoms Respiratory: Reports: cough, shortness of breath, SOB with excertion Gastrointestinal/Abdominal: Reports: no symptoms Genitourinary: Reports: no symptoms Neurologic/Psychiatric: Reports: pre-existing deficit Endocrine: Reports: no symptoms Hematologic/Lymphatic: Reports: anemia Allergies: Coded Allergies: No Known Allergies (Verified , 01/23/09) All Systems: reviewed and negative except above Subjective no events. w/o complaints. wants to go home. s/p endoscopy. no chest pain or sob. no fever or chills. H&H left lower today no reports of any. Objective Last 24 Hour Vital Signs Date Time Temp Pulse Resp B/P (MAP) Pulse Ox O2 Delivery O2 Flow Rate FiO2 07/13/20 09:00 Room Air 07/13/20 08:00 98.4 62 20 116/51 (72) 100 07/13/20 08:00 65 07/13/20 04:00 60 07/13/20 04:00 97.7 62 20 100/50 (67) 95 07/13/20 00:00 97.9 65 16 95/60 (72) 93 07/13/20 00:00 61 07/12/20 21:00 Nasal Cannula 2.0 07/12/20 20:00 60 07/12/20 20:00 97.7 62 16 105/54 (71) 97 07/12/20 16:00 98.0 61 20 108/59 (75) 97 07/12/20 16:00 60 Intake and Output 07/12/20 07/13/20 19:00 07:00 Intake Total 720 ml 240 ml Output Total 850 ml Balance -130 ml 240 ml Intake Oral 720 ml 240 ml Output Urine Total 850 ml Laboratory Tests 07/13/20 07:07: White Blood Count 7.2, Red Blood Count 2.96L, Hemoglobin 6.8*L, Hematocrit 23.8L , Mean Corpuscular Volume 80, Mean Corpuscular Hemoglobin 23.1L, Mean Corpuscular Hemoglobin Concent 28.7L, Red Cell Distribution Width 24.8H, Platelet Count 255, Mean Platelet Volume 6.1L, Neutrophils (%) (Auto) , Lymphocytes (%) (Auto) , Monocytes (%) (Auto) , Eosinophils (%) (Auto) , Basophils (%) (Auto) , Differential Total Cells Counted 100, Neutrophils % (Manual) 62, Lymphocytes % (Manual) 28, Monocytes % (Manual) 8, Eosinophils % (Manual) 2, Basophils % (Manual) 0, Band Neutrophils 0, Platelet Estimate Adequate, Platelet Morphology Normal, Polychromasia 1+, Hypochromasia 2+, Anisocytosis 3+, Target Cells Occasional, Acanthocytes Occasional, Schistocytes 1+, Sodium Level 140, Potassium Level 4.2, Chloride Level 105, Carbon Dioxide Level 29, Anion Gap 6, Blood Urea Nitrogen 30H, Creatinine 1.7H, Estimat Glomerular Filtration Rate 46.8, Glucose Level 84, Calcium Level 10.6H, Magnesium Level 1.9, Total Bilirubin 1.9H, Direct Bilirubin 1.1H, Aspartate Amino Transf (AST/SGOT) 26, Alanine Aminotransferase (ALT/SGPT) 10L, Alkaline Phosphatase 83, Pro-B-Type Natriuretic Peptide 5229H, Total Protein 7.1, Albumin 2.8L, Globulin 4.3, Albumin/Globulin Ratio 0.7L Height (Feet): 6 Height (Inches): 1.00 Weight (Pounds): 180 Objective General Appearance: WD/WN, alert, confused EENT: normal ENT inspection Neck: normal alignment, supple Cardiovascular: normal rate, regular rhythm Respiratory/Chest: chest wall non-tender, lungs clear, normal breath sounds, no respiratory distress, no accessory muscle use Abdomen: normal bowel sounds, non tender, soft, no organomegaly Edema: 3+ Pedal (L), 3+ Pedal (R) Edema: severe edema 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, alert, responsive Skin: normal pigmentation, warm/dry Assessment/Plan Problem List: (1) Acute exacerbation of CHF (congestive heart failure) (2) Swelling of lower extremity ICD Codes: M79.89 - Other specified soft tissue disorders SNOMED: 758608139, 431595197 (3) Orthopnea (4) CHF (congestive heart failure) ICD Codes: I50.9 - CHF (congestive heart failure) SNOMED: 14136521 (5) Atrial fibrillation ICD Codes: I48.91 - Atrial fibrillation SNOMED: 23774893 (6) Anemia ICD Codes: D64.9 - Anemia, unspecified SNOMED: 902726750 (7) Elevated troponin ICD Codes: R74.8 - Elevated troponin SNOMED: 668258124 Status: stable, progressing Assessment/Plan: po lasix Elevate legs Monitor renal function and lytes diuresis Continue Epogen and iron supplements monitor labs Monitor for bleeding ppi rx monitor labs probably needs snf. prefers to take pt home with home health pt/ot Sumit Hallman MD Jul 13, 2020 13:11
[2020-07-13] MEDS ORDERED: Tubing IV Secondary IV ONE (14:05)
[2020-07-13 16:00] VITALS: BP 105/48
--- NOTE | 2020-07-13 17:47 | Cardiology Progress Note ---
Subjective DATE OF SERVICE: Jul 13, 2020 EGD completed 07/11/20 without complication; no bleeding source found. No CP. No SOB in bedbound state or with limited mobilization. No N/V/D or pain. Appetite fair. Hemoglobin remains below 7gm/dl; its back to 6.8 gm/dl today; no signs of GI blood loss. Objective Last 24 Hour Vital Signs Date Time Temp Pulse Resp B/P (MAP) Pulse Ox O2 Delivery O2 Flow Rate FiO2 07/13/20 16:00 97.9 67 20 105/48 (67) 97 07/13/20 16:00 60 07/13/20 12:00 60 07/13/20 12:00 97.3 61 20 107/47 (67) 96 07/13/20 09:00 Room Air 07/13/20 08:00 98.4 62 20 116/51 (72) 100 07/13/20 08:00 65 07/13/20 04:00 60 07/13/20 04:00 97.7 62 20 100/50 (67) 95 07/13/20 00:00 97.9 65 16 95/60 (72) 93 07/13/20 00:00 61 07/12/20 21:00 Nasal Cannula 2.0 07/12/20 20:00 60 07/12/20 20:00 97.7 62 16 105/54 (71) 97 HEENT: normal ENT inspection RHYTHM: Afib, other - demand Ventric pacing LUNGS: diminished breath sounds CARDIAC: normal rate, normal S1 and S2, irregularly irregular, systolic murmur - 1/6 apical systolic murmur ABDOMEN: normal bowel sounds EXTREMITIES: normal range of motion, +3 edema Laboratory Tests Test 07/13/20 07:07 White Blood Count 7.2 K/UL (4.8-10.8) Red Blood Count 2.96 M/UL (4.70-6.10) L Hemoglobin 6.8 G/DL (14.2-18.0) *L Hematocrit 23.8 % (42.0-52.0) L Mean Corpuscular Volume 80 FL (80-99) Mean Corpuscular Hemoglobin 23.1 PG (27.0-31.0) L Mean Corpuscular Hemoglobin Concent 28.7 G/DL (32.0-36.0) L Red Cell Distribution Width 24.8 % (11.6-14.8) H Platelet Count 255 K/UL (150-450) Mean Platelet Volume 6.1 FL (6.5-10.1) L Neutrophils (%) (Auto) % (45.0-75.0) Lymphocytes (%) (Auto) % (20.0-45.0) Monocytes (%) (Auto) % (1.0-10.0) Eosinophils (%) (Auto) % (0.0-3.0) Basophils (%) (Auto) % (0.0-2.0) Differential Total Cells Counted 100 Neutrophils % (Manual) 62 % (45-75) Lymphocytes % (Manual) 28 % (20-45) Monocytes % (Manual) 8 % (1-10) Eosinophils % (Manual) 2 % (0-3) Basophils % (Manual) 0 % (0-2) Band Neutrophils 0 % (0-8) Platelet Estimate Adequate Platelet Morphology Normal Polychromasia 1+ Hypochromasia 2+ Anisocytosis 3+ Target Cells Occasional Acanthocytes Occasional Schistocytes 1+ Sodium Level 140 MMOL/L (136-145) Potassium Level 4.2 MMOL/L (3.5-5.1) Chloride Level 105 MMOL/L (98-107) Carbon Dioxide Level 29 MMOL/L (21-32) Anion Gap 6 mmol/L (5-15) Blood Urea Nitrogen 30 mg/dL (7-18) H Creatinine 1.7 MG/DL (0.55-1.30) H Estimat Glomerular Filtration Rate 46.8 mL/min (>60) Glucose Level 84 MG/DL (74-106) Calcium Level 10.6 MG/DL (8.5-10.1) H Magnesium Level 1.9 MG/DL (1.8-2.4) Total Bilirubin 1.9 MG/DL (0.2-1.0) H Direct Bilirubin 1.1 MG/DL (0.0-0.3) H Aspartate Amino Transf (AST/SGOT) 26 U/L (15-37) Alanine Aminotransferase (ALT/SGPT) 10 U/L (12-78) L Alkaline Phosphatase 83 U/L (46-116) Pro-B-Type Natriuretic Peptide 5229 pg/mL (0-125) H Total Protein 7.1 G/DL (6.4-8.2) Albumin 2.8 G/DL (3.4-5.0) L Globulin 4.3 g/dL Albumin/Globulin Ratio 0.7 (1.0-2.7) L Assessment/Plan Assessment/Plan Severe anemia GI bleed Jehovahs witness Ac/chr diastolic CHF now compensated PAFib Pacemaker Hx thoracic aorta repair Elev LFT's may be due to passive congestion COPD Conjunctivitis Abd pain Ac/chr renal failure - improved Orthostatic risk Hypomagnesemia Consider colonoscopy when hb more stable; monitor blood counts. Continue hydrocodone prn for back pain and CROSS Diuresis adjustment based on clinical status. O2 suppl IV iron and sq EPO Titrate anti-failure rx - decrease for low range BP. No aspirin or anticoag rx; off NSAID's Topical abx IV magnesium repl and oral potassium rx as needed Will need to arrange hospital bed and other assist before can manage at home. Per GI, defer colonscopy until hb above 8. ?benefit of Yvan Mendosa MD Jul 13, 2020 17:46
--- NOTE | 2020-07-13 18:07 | General Progress Note ---
Subjective Allergies: Coded Allergies: No Known Allergies (Verified , 01/23/09) Subjective no new complaints no abdominal complaints Objective Last 24 Hour Vital Signs Date Time Temp Pulse Resp B/P (MAP) Pulse Ox O2 Delivery O2 Flow Rate FiO2 07/13/20 16:00 97.9 67 20 105/48 (67) 97 07/13/20 16:00 60 07/13/20 12:00 60 07/13/20 12:00 97.3 61 20 107/47 (67) 96 07/13/20 09:00 Room Air 07/13/20 08:00 98.4 62 20 116/51 (72) 100 07/13/20 08:00 65 07/13/20 04:00 60 07/13/20 04:00 97.7 62 20 100/50 (67) 95 07/13/20 00:00 97.9 65 16 95/60 (72) 93 07/13/20 00:00 61 07/12/20 21:00 Nasal Cannula 2.0 07/12/20 20:00 60 07/12/20 20:00 97.7 62 16 105/54 (71) 97 Intake and Output 07/12/20 07/13/20 19:00 07:00 Intake Total 720 ml 240 ml Output Total 850 ml Balance -130 ml 240 ml Intake Oral 720 ml 240 ml Output Urine Total 850 ml Laboratory Tests 07/13/20 07:07: White Blood Count 7.2, Red Blood Count 2.96L, Hemoglobin 6.8*L, Hematocrit 23.8L , Mean Corpuscular Volume 80, Mean Corpuscular Hemoglobin 23.1L, Mean Corpuscular Hemoglobin Concent 28.7L, Red Cell Distribution Width 24.8H, Platelet Count 255, Mean Platelet Volume 6.1L, Neutrophils (%) (Auto) , Lymphocytes (%) (Auto) , Monocytes (%) (Auto) , Eosinophils (%) (Auto) , Basophils (%) (Auto) , Differential Total Cells Counted 100, Neutrophils % (Manual) 62, Lymphocytes % (Manual) 28, Monocytes % (Manual) 8, Eosinophils % (Manual) 2, Basophils % (Manual) 0, Band Neutrophils 0, Platelet Estimate Adequate, Platelet Morphology Normal, Polychromasia 1+, Hypochromasia 2+, Anisocytosis 3+, Target Cells Occasional, Acanthocytes Occasional, Schistocytes 1+, Sodium Level 140, Potassium Level 4.2, Chloride Level 105, Carbon Dioxide Level 29, Anion Gap 6, Blood Urea Nitrogen 30H, Creatinine 1.7H, Estimat Glomerular Filtration Rate 46.8, Glucose Level 84, Calcium Level 10.6H, Magnesium Level 1.9, Total Bilirubin 1.9H, Direct Bilirubin 1.1H, Aspartate Amino Transf (AST/SGOT) 26, Alanine Aminotransferase (ALT/SGPT) 10L, Alkaline Phosphatase 83, Pro-B-Type Natriuretic Peptide 5229H, Total Protein 7.1, Albumin 2.8L, Globulin 4.3, Albumin/Globulin Ratio 0.7L Height (Feet): 6 Height (Inches): 1.00 Weight (Pounds): 180 Objective WDWN NCAT supple CTA RRR abd soft ND trace edema Assessment/Plan Status: stable, progressing Assessment/Plan: Assessment - Iron deficiency anemia - negative EGD - [place], declines transfusion - lower abdominal TTP, ? etiology - b/l edema and anasarca - improved - azotemia - improved - CHF - COPD - CHF Recommendations - EPO - IV Iron - check CT abd/pelvis --> anasarca, diverticulosis - PPI - Outpatient colonoscopy, once Hg 8.0 Jacob Deleon MD Jul 13, 2020 18:07
[2020-07-13 20:00] VITALS: BP 108/53
[2020-07-13] MEDS: Atorvastatin 20mg tab ORAL SCH (21:27)
[2020-07-14] VITALS: BP 103/44
[2020-07-14 04:00] VITALS: BP 102/50
--- NOTE | 2020-07-14 07:27 | NUR ---
NURSE NOTES: PATIENT ALERT TIME 3 IN BED SLEEPING
[2020-07-14 08:00] VITALS: BP 126/57
[2020-07-14 09:02] LABS: HEMATOCRIT 23.8 % (42.0-52.0); MEAN CORPUSCULAR VOLUME 81 FL (80-99); PLATELET COUNT 291 K/UL (150-450); RED BLOOD COUNT 2.92 M/UL (4.70-6.10); RED CELL DISTRIBUTION WIDTH 24.5 % (11.6-14.8); WHITE BLOOD COUNT 7.3 K/UL (4.8-10.8)
[2020-07-14 09:06] LABS: HEMOGLOBIN 6.8 G/DL (14.2-18.0)
--- NOTE | 2020-07-14 09:45 | NUR ---
*-*DISCHARGE PLANNING*-* PATIENT HAS BEEN REFERRED TO: [facility] P:[phone]
[2020-07-14 09:58] LABS: ALBUMIN 2.8 G/DL (3.4-5.0); ALBUMIN/GLOBULIN RATIO 0.7 (1.0-2.7); CALCIUM 10.8 MG/DL (8.5-10.1); CREATININE 1.7 MG/DL (0.55-1.30); POTASSIUM 4.4 MMOL/L (3.5-5.1)
[2020-07-14] MEDS: Amiodarone 200mg tab ORAL SCH (10:08)
[2020-07-14] MEDS: Tamsulosin 0.4mg cap ORAL SCH (10:08)
[2020-07-14] MEDS: Spironolactone 25mg tab ORAL SCH (10:09)
[2020-07-14] MEDS: Furosemide 40mg tab ORAL SCH (10:09)
[2020-07-14] MEDS: Ascorbic Acid 500mg tab ORAL SCH ×2 (10:09→18:12)
[2020-07-14 12:00] VITALS: BP 99/53
--- NOTE | 2020-07-14 12:07 | Surgery Progress Note ---
Surgery Progress Note Subjective Additional Comments h/h stable asymptomatic no pain no n/v Objective Last 24 Hour Vital Signs Date Time Temp Pulse Resp B/P (MAP) Pulse Ox O2 Delivery O2 Flow Rate FiO2 07/14/20 08:00 97.4 62 20 126/57 (80) 97 07/14/20 04:00 97.5 61 16 102/50 (67) 98 07/14/20 04:00 60 07/14/20 00:00 60 07/14/20 00:00 97.5 61 16 103/44 (63) 98 07/13/20 21:00 Room Air 07/13/20 20:00 97.4 60 16 108/53 (71) 96 07/13/20 20:00 60 07/13/20 16:00 97.9 67 20 105/48 (67) 97 07/13/20 16:00 60 I&O Intake and Output 07/13/20 07/14/20 19:00 07:00 Intake Total 730 ml Balance 730 ml Intake Oral 730 ml # Voids 3 6 # Bowel Movements 1 Dressing: saturated Cardiovascular: RSR Respiratory: decreased breath sounds Abdomen: soft, flat, non-tender, present bowel sounds, non-distended Extremities: no tenderness, no cyanosis Laboratory Tests Test 07/14/20 08:25 White Blood Count 7.3 K/UL (4.8-10.8) Red Blood Count 2.92 M/UL (4.70-6.10) L Hemoglobin 6.8 G/DL (14.2-18.0) *L Hematocrit 23.8 % (42.0-52.0) L Mean Corpuscular Volume 81 FL (80-99) Mean Corpuscular Hemoglobin 23.4 PG (27.0-31.0) L Mean Corpuscular Hemoglobin Concent 28.7 G/DL (32.0-36.0) L Red Cell Distribution Width 24.5 % (11.6-14.8) H Platelet Count 291 K/UL (150-450) Mean Platelet Volume 7.4 FL (6.5-10.1) Neutrophils (%) (Auto) % (45.0-75.0) Lymphocytes (%) (Auto) % (20.0-45.0) Monocytes (%) (Auto) % (1.0-10.0) Eosinophils (%) (Auto) % (0.0-3.0) Basophils (%) (Auto) % (0.0-2.0) Differential Total Cells Counted 100 Neutrophils % (Manual) 77 % (45-75) H Lymphocytes % (Manual) 16 % (20-45) L Monocytes % (Manual) 5 % (1-10) Eosinophils % (Manual) 2 % (0-3) Basophils % (Manual) 0 % (0-2) Band Neutrophils 0 % (0-8) Platelet Estimate Adequate Platelet Morphology Normal Polychromasia 1+ Hypochromasia 2+ Anisocytosis 2+ Target Cells Occasional Acanthocytes 1+ Schistocytes 1+ Sodium Level 144 MMOL/L (136-145) Potassium Level 4.4 MMOL/L (3.5-5.1) Chloride Level 108 MMOL/L (98-107) H Carbon Dioxide Level 31 MMOL/L (21-32) Anion Gap 5 mmol/L (5-15) Blood Urea Nitrogen 36 mg/dL (7-18) H Creatinine 1.7 MG/DL (0.55-1.30) H Estimat Glomerular Filtration Rate 46.8 mL/min (>60) Glucose Level 88 MG/DL (74-106) Calcium Level 10.8 MG/DL (8.5-10.1) H Total Bilirubin 2.0 MG/DL (0.2-1.0) H Direct Bilirubin 1.0 MG/DL (0.0-0.3) H Aspartate Amino Transf (AST/SGOT) 26 U/L (15-37) Alanine Aminotransferase (ALT/SGPT) 11 U/L (12-78) L Alkaline Phosphatase 79 U/L (46-116) Total Protein 7.1 G/DL (6.4-8.2) Albumin 2.8 G/DL (3.4-5.0) L Globulin 4.3 g/dL Albumin/Globulin Ratio 0.7 (1.0-2.7) L Plan Problems: (1) Anemia (2) Chronic obstructive pulmonary disease (3) Sacral decubitus ulcer Assessment & Plan: Pt presented on admission with multiple Pressure Injuries. Sacral Pressure Injury resolving(L)1.5cm x (W)0.5cm. Base of wound is pink with maceration. Multiple Ulcerations at base of Scrotum . Wounds are resolving(#1) Full thickness Pressure Injury base of wound resolving. Base of wound is 50% mihai 50% pink epithelial(L)2cm x (W)1.2cm. Edges are adherent to base of wound. NO exudate noted. (#2)Wound R testicle resolving. Blairs epithelial at base of wound. No exudate noted (L)2cm x (W)1.2cm. (#3)Wound that is proximally to above documented wounds is also resolving(L)1cm x (W)1cm. Base of wound is 25% mihai ,75% surrounding pink epithelial.. L Heel has resolved. Heel is boggy but blanchable and non-tender when palpated R heel has resolved. R heel is boggy but blanchable and non-tender when palpated. Pt is frequently and heavily incontinent of Bladder. place urinary pouch to minimize further skin breakdown from incontinence. Pt is well endowed and unable to place urinary pouch. Ok to improvise with Fecal pouch to contain incontinence. Fecal pouch in place and attached to drainage bag. DAILY ESTIMATED NEEDS: Needs based on Cardiac, wound 88kg abw 25-35 kcals/kg 0970-2257 total kcals 1.25-1.5 g protein/kg 110-132 g total protein Fluid per MD, on lasix NUTRITION DIAGNOSIS: Increased kcal and pro needs r/t wound healing as evidenced by w/ full thickness scrotal wound, refer to full wound care eval. CURRENT DIET:CLEAR LIQUID DIET (SINCE 07/02) PO DIET RECOMMENDATIONS: Liberalized Regular diet/ texture as tolerated w/ variable po intake ADDITIONAL RECOMMENDATIONS: 1) CALIBRATED BED SCALE wt 2) On lasix, monitor lytes daily 3) Monitor for diet advancement- on CLD since 07/02 -> continue Ensure Clear TID w/ CLD; Ensure Enlive w/ advanced diet 4) CLASSIFICATION CLERK eval for appropriate texture w/ diet advancement 5) WOUND CARE: continue MVI and Vit C KELLEY BID added to tray (4) PNA (pneumonia) (5) Elevated troponin (6) UTI (lower urinary tract infection) (7) Acute exacerbation of CHF (congestive heart failure) (8) UTI (lower urinary tract infection) (9) Atrial fibrillation (10) CHF (congestive heart failure) (11) Orthopnea (12) Dyspnea on exertion (13) Swelling of lower extremity (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 (16) Hemoptysis (17) Stroke (18) COPD exacerbation (19) Acute exacerbation of CHF (congestive heart failure) (20) Epistaxis Erlin Kearns Jul 14, 2020 12:07
--- NOTE | 2020-07-14 13:18 | NUR ---
RD ASSESSMENT & RECOMMENDATIONS SEE CARE ACTIVITY FOR COMPLETE ASSESSMENT DAILY ESTIMATED NEEDS: Needs based on Cardiac, wound 88kg abw 25-35 kcals/kg 2714-9825 total kcals 1.25-1.5 g protein/kg 110-132 g total protein Fluid per MD, on lasix NUTRITION DIAGNOSIS: Increased kcal and pro needs r/t wound healing as evidenced by w/ full thickness scrotal wound, refer to full wound care eval. CURRENT DIET:CARDIAC PO DIET RECOMMENDATIONS: Liberalized Regular diet/ texture as tolerated w/ variable po intake ADDITIONAL RECOMMENDATIONS: 1) CALIBRATED BED SCALE wt 2) On lasix and aldactone, monitor lytes daily 3) Ensure Enlive TID w/ meals 4) ROAD PRODUCTION GENERAL MANAGER eval for appropriate texture 5) WOUND CARE: continue MVI and Vit C KELLEY BID added to tray .
--- NOTE | 2020-07-14 15:58 | General Progress Note ---
Subjective ROS Limited/Unobtainable: No Constitutional: Reports: malaise, weakness HEENT: Reports: no symptoms Cardiovascular: Reports: edema Respiratory: Reports: cough Gastrointestinal/Abdominal: Reports: no symptoms Genitourinary: Reports: no symptoms Neurologic/Psychiatric: Reports: pre-existing deficit Endocrine: Reports: no symptoms Hematologic/Lymphatic: Reports: anemia Allergies: Coded Allergies: No Known Allergies (Verified , 01/23/09) All Systems: reviewed and negative except above Subjective no events. w/o complaints. wants to go home. s/p endoscopy. no chest pain or sob. no fever or chills. H&H stable. no reports of bleeding. Objective Last 24 Hour Vital Signs Date Time Temp Pulse Resp B/P (MAP) Pulse Ox O2 Delivery O2 Flow Rate FiO2 07/14/20 12:00 60 07/14/20 12:00 97.8 72 20 99/53 (68) 98 07/14/20 09:00 Room Air 07/14/20 08:00 63 07/14/20 08:00 97.4 62 20 126/57 (80) 97 07/14/20 04:00 97.5 61 16 102/50 (67) 98 07/14/20 04:00 60 07/14/20 00:00 60 07/14/20 00:00 97.5 61 16 103/44 (63) 98 07/13/20 21:00 Room Air 07/13/20 20:00 97.4 60 16 108/53 (71) 96 07/13/20 20:00 60 07/13/20 16:00 97.9 67 20 105/48 (67) 97 07/13/20 16:00 60 Intake and Output 07/13/20 07/14/20 19:00 07:00 Intake Total 730 ml Balance 730 ml Intake Oral 730 ml # Voids 3 6 # Bowel Movements 1 Laboratory Tests 07/14/20 08:25: White Blood Count 7.3, Red Blood Count 2.92L, Hemoglobin 6.8*L, Hematocrit 23.8L , Mean Corpuscular Volume 81, Mean Corpuscular Hemoglobin 23.4L, Mean Corpuscular Hemoglobin Concent 28.7L, Red Cell Distribution Width 24.5H, Platelet Count 291, Mean Platelet Volume 7.4, Neutrophils (%) (Auto) , Lymphocytes (%) (Auto) , Monocytes (%) (Auto) , Eosinophils (%) (Auto) , Basophils (%) (Auto) , Differential Total Cells Counted 100, Neutrophils % (Manual) 77H, Lymphocytes % (Manual) 16L, Monocytes % (Manual) 5, Eosinophils % (Manual) 2, Basophils % (Manual) 0, Band Neutrophils 0, Platelet Estimate Adequate, Platelet Morphology Normal, Polychromasia 1+, Hypochromasia 2+, Anisocytosis 2+, Target Cells Occasional, Acanthocytes 1+, Schistocytes 1+, Sodium Level 144, Potassium Level 4.4, Chloride Level 108H, Carbon Dioxide Level 31, Anion Gap 5, Blood Urea Nitrogen 36H, Creatinine 1.7H, Estimat Glomerular Filtration Rate 46.8, Glucose Level 88, Calcium Level 10.8H, Total Bilirubin 2.0H, Direct Bilirubin 1.0H, Aspartate Amino Transf (AST/SGOT) 26, Alanine Aminotransferase (ALT/SGPT) 11L, Alkaline Phosphatase 79, Total Protein 7.1, Albumin 2.8L, Globulin 4.3, Albumin/Globulin Ratio 0.7L Height (Feet): 6 Height (Inches): 1.00 Weight (Pounds): 180 Objective General Appearance: WD/WN, alert, confused EENT: normal ENT inspection Neck: normal alignment, supple Cardiovascular: normal rate, regular rhythm Respiratory/Chest: chest wall non-tender, lungs clear, normal breath sounds, no respiratory distress, no accessory muscle use Abdomen: normal bowel sounds, non tender, soft, no organomegaly Edema: 3+ Pedal (L), 3+ Pedal (R) Edema: severe edema Neurologic: lead injection mold technician II-XII 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, alert, responsive Skin: normal pigmentation, warm/dry Assessment/Plan Problem List: (1) Acute exacerbation of CHF (congestive heart failure) (2) Swelling of lower extremity ICD Codes: M79.89 - Other specified soft tissue disorders SNOMED: 015158217, 808194038 (3) Orthopnea (4) CHF (congestive heart failure) ICD Codes: I50.9 - CHF (congestive heart failure) SNOMED: 24737864 (5) Atrial fibrillation ICD Codes: I48.91 - Atrial fibrillation SNOMED: 66546753 (6) Anemia ICD Codes: D64.9 - Anemia, unspecified SNOMED: 249199029 (7) Elevated troponin ICD Codes: R74.8 - Elevated troponin SNOMED: 118759120 Status: stable, progressing Assessment/Plan: po lasix Elevate legs Monitor renal function and lytes diuresis Continue Epogen and iron supplements monitor labs Monitor for bleeding ppi rx monitor labs probably needs snf. prefers to take pt home with home health pt/ot pt needs hospital bed to help keep hob >45. pt has congestion heart failure and needs HOB elevated to help manage secretion and SOB. this cannot be done in regular bed. Sumit Hallman MD Jul 14, 2020 15:58
[2020-07-14 16:00] VITALS: BP 122/59
--- NOTE | 2020-07-14 16:28 | Diagnostic Imaging Report ---
Indication: Abnormal renal function tests, abnormal liver function tests Technique: Goodman-scale and duplex images of the upper abdomen were obtained Comparison: No comparison sonograms. Reference made to abdomen pelvis CT scan dated 06/26/2020 Findings: There is ascites fluid present. Gallbladder demonstrates wall thickening and pericholecystic edema, but no gallstones. Sonographic Turner's sign is negative. Common bile duct measures 11 mm in diameter. No intrahepatic biliary ductal dilatation. Liver demonstrates normal echogenicity, no focal abnormality. Portal vein and hepatic veins are patent, but to and fro flow is seen within the main portal vein Pancreas is unremarkable. Spleen is unremarkable. Left kidney measures 10 point cm in length. Right kidney measures 10.11 cm length. Both kidneys demonstrate normal echogenicity. There is no hydronephrosis. There are renal cysts bilaterally, some on the right are large. The bladder is nondistended but equivocally somewhat thick-walled.. Abdominal aorta is partially obscured by bowel gas, visualized portions are non-aneurysmal . . There is pleural fluid on the right. The hepatic veins are somewhat distended. Impression: Ascites Right pleural effusion Distended inferior vena cava and hepatic veins, suggestive of a central venous hypertension Negative for gallstones. Gallbladder wall thickening and pericholecystic edema, suspect related to the above Dilated common bile duct, 11 mm. Downstream obstruction possible. Correlate with liver function tests, consider MRCP if clinically indicated To and fro flow within the main portal vein, could indicate portal hypertension Bilateral renal cysts Note incomplete visualization of the abdominal aorta Equivocal mild bladder wall thickening, probably artifact of lack of distention
[2020-07-14] MEDS: HYDROcodone/Acetamin 5/325 tab ORAL PRN (18:12)
--- NOTE | 2020-07-14 19:30 | NUR ---
NURSE NOTES: received patient alert resting comfortable in bed. assessment initiated. patient show no signs of distress. call evans within reach, bed in low position. will continue to monitor.
--- NOTE | 2020-07-14 19:58 | Cardiology Progress Note ---
Subjective DATE OF SERVICE: Jul 14, 2020 Overall condition unchanged. EGD completed 07/11/20 without complication; no bleeding source found. No CP. No SOB in bedbound state or with limited mobilization. No N/V/D or pain. Appetite fair. Hemoglobin remains below 7gm/dl; its back to 6.8 gm/dl yesterday; no signs of GI blood loss. Needs almost total assist with care. Objective Last 24 Hour Vital Signs Date Time Temp Pulse Resp B/P (MAP) Pulse Ox O2 Delivery O2 Flow Rate FiO2 07/14/20 16:00 97.5 64 20 122/59 (80) 98 07/14/20 16:00 64 07/14/20 12:00 60 07/14/20 12:00 97.8 72 20 99/53 (68) 98 07/14/20 09:00 Room Air 07/14/20 08:00 63 07/14/20 08:00 97.4 62 20 126/57 (80) 97 07/14/20 04:00 97.5 61 16 102/50 (67) 98 07/14/20 04:00 60 07/14/20 00:00 60 07/14/20 00:00 97.5 61 16 103/44 (63) 98 07/13/20 21:00 Room Air 07/13/20 20:00 97.4 60 16 108/53 (71) 96 07/13/20 20:00 60 HEENT: normal ENT inspection RHYTHM: Afib, other - demand Ventric pacing LUNGS: diminished breath sounds CARDIAC: normal rate, normal S1 and S2, irregularly irregular, systolic murmur - 1/6 apical systolic murmur ABDOMEN: normal bowel sounds EXTREMITIES: normal range of motion, +3 edema Laboratory Tests Test 07/14/20 08:25 White Blood Count 7.3 K/UL (4.8-10.8) Red Blood Count 2.92 M/UL (4.70-6.10) L Hemoglobin 6.8 G/DL (14.2-18.0) *L Hematocrit 23.8 % (42.0-52.0) L Mean Corpuscular Volume 81 FL (80-99) Mean Corpuscular Hemoglobin 23.4 PG (27.0-31.0) L Mean Corpuscular Hemoglobin Concent 28.7 G/DL (32.0-36.0) L Red Cell Distribution Width 24.5 % (11.6-14.8) H Platelet Count 291 K/UL (150-450) Mean Platelet Volume 7.4 FL (6.5-10.1) Neutrophils (%) (Auto) % (45.0-75.0) Lymphocytes (%) (Auto) % (20.0-45.0) Monocytes (%) (Auto) % (1.0-10.0) Eosinophils (%) (Auto) % (0.0-3.0) Basophils (%) (Auto) % (0.0-2.0) Differential Total Cells Counted 100 Neutrophils % (Manual) 77 % (45-75) H Lymphocytes % (Manual) 16 % (20-45) L Monocytes % (Manual) 5 % (1-10) Eosinophils % (Manual) 2 % (0-3) Basophils % (Manual) 0 % (0-2) Band Neutrophils 0 % (0-8) Platelet Estimate Adequate Platelet Morphology Normal Polychromasia 1+ Hypochromasia 2+ Anisocytosis 2+ Target Cells Occasional Acanthocytes 1+ Schistocytes 1+ Sodium Level 144 MMOL/L (136-145) Potassium Level 4.4 MMOL/L (3.5-5.1) Chloride Level 108 MMOL/L (98-107) H Carbon Dioxide Level 31 MMOL/L (21-32) Anion Gap 5 mmol/L (5-15) Blood Urea Nitrogen 36 mg/dL (7-18) H Creatinine 1.7 MG/DL (0.55-1.30) H Estimat Glomerular Filtration Rate 46.8 mL/min (>60) Glucose Level 88 MG/DL (74-106) Calcium Level 10.8 MG/DL (8.5-10.1) H Total Bilirubin 2.0 MG/DL (0.2-1.0) H Direct Bilirubin 1.0 MG/DL (0.0-0.3) H Aspartate Amino Transf (AST/SGOT) 26 U/L (15-37) Alanine Aminotransferase (ALT/SGPT) 11 U/L (12-78) L Alkaline Phosphatase 79 U/L (46-116) Total Protein 7.1 G/DL (6.4-8.2) Albumin 2.8 G/DL (3.4-5.0) L Globulin 4.3 g/dL Albumin/Globulin Ratio 0.7 (1.0-2.7) L Assessment/Plan Assessment/Plan Severe anemia GI bleed Jehovahs witness Ac/chr diastolic CHF now compensated PAFib Pacemaker Hx thoracic aorta repair Elev LFT's may be due to passive congestion COPD Conjunctivitis Abd pain Ac/chr renal failure - improved Orthostatic risk Hypomagnesemia Consider colonoscopy when hb more stable; monitor blood counts. Continue hydrocodone prn for back pain and CROSS Diuresis adjustment based on clinical status. O2 suppl IV iron and sq EPO Titrate anti-failure rx - decrease for low range BP. No aspirin or anticoag rx; off NSAID's Topical abx IV magnesium repl and oral potassium rx as needed Will need to arrange hospital bed and other assist before can manage at home. Per GI, defer colonscopy until hb above 8. ?benefit of Yvan Mendosa MD Jul 14, 2020 19:58
[2020-07-14 20:00] VITALS: BP 109/56
[2020-07-14] MEDS: Atorvastatin 20mg tab ORAL SCH (21:07)
[2020-07-14] MEDS: Epoetin Alfa-EPBX (NON ESRD)10,000 unit/ml vial SUBQ SCH (21:08)
--- NOTE | 2020-07-14 21:45 | General Progress Note ---
Subjective Allergies: Coded Allergies: No Known Allergies (Verified , 01/23/09) Subjective no new complaints no abdominal complaints H&H noted - still Hg 6.8 unable to order a capsule endoscopy - hospital is out of capsule devices d/w cardiology - will order SBFT instead abdominal ultrasound ordered and resulted: - mild CBD dilation, r/o distal obstruction - Ascites, new - Pleural effusion - elevated (R) sided pressures Objective Last 24 Hour Vital Signs Date Time Temp Pulse Resp B/P (MAP) Pulse Ox O2 Delivery O2 Flow Rate FiO2 07/14/20 20:53 Room Air 07/14/20 20:00 66 07/14/20 20:00 97.8 74 20 109/56 (73) 99 07/14/20 16:00 97.5 64 20 122/59 (80) 98 07/14/20 16:00 64 07/14/20 12:00 60 07/14/20 12:00 97.8 72 20 99/53 (68) 98 07/14/20 09:00 Room Air 07/14/20 08:00 63 07/14/20 08:00 97.4 62 20 126/57 (80) 97 07/14/20 04:00 97.5 61 16 102/50 (67) 98 07/14/20 04:00 60 07/14/20 00:00 60 07/14/20 00:00 97.5 61 16 103/44 (63) 98 Intake and Output 07/13/20 07/14/20 19:00 07:00 Intake Total 730 ml Balance 730 ml Intake Oral 730 ml # Voids 3 6 # Bowel Movements 1 Laboratory Tests 07/14/20 08:25: White Blood Count 7.3, Red Blood Count 2.92L, Hemoglobin 6.8*L, Hematocrit 23.8L , Mean Corpuscular Volume 81, Mean Corpuscular Hemoglobin 23.4L, Mean Corpuscular Hemoglobin Concent 28.7L, Red Cell Distribution Width 24.5H, Platelet Count 291, Mean Platelet Volume 7.4, Neutrophils (%) (Auto) , Lymphocytes (%) (Auto) , Monocytes (%) (Auto) , Eosinophils (%) (Auto) , Basophils (%) (Auto) , Differential Total Cells Counted 100, Neutrophils % (Manual) 77H, Lymphocytes % (Manual) 16L, Monocytes % (Manual) 5, Eosinophils % (Manual) 2, Basophils % (Manual) 0, Band Neutrophils 0, Platelet Estimate Adequate, Platelet Morphology Normal, Polychromasia 1+, Hypochromasia 2+, Anisocytosis 2+, Target Cells Occasional, Acanthocytes 1+, Schistocytes 1+, Sodium Level 144, Potassium Level 4.4, Chloride Level 108H, Carbon Dioxide Level 31, Anion Gap 5, Blood Urea Nitrogen 36H, Creatinine 1.7H, Estimat Glomerular Filtration Rate 46.8, Glucose Level 88, Calcium Level 10.8H, Total Bilirubin 2.0H, Direct Bilirubin 1.0H, Aspartate Amino Transf (AST/SGOT) 26, Alanine Aminotransferase (ALT/SGPT) 11L, Alkaline Phosphatase 79, Total Protein 7.1, Albumin 2.8L, Globulin 4.3, Albumin/Globulin Ratio 0.7L Height (Feet): 6 Height (Inches): 1.00 Weight (Pounds): 180 Objective WDWN NCAT supple CTA RRR abd soft NT, but distended trace edema Assessment/Plan Status: stable, progressing Assessment/Plan: Assessment - Iron deficiency anemia - negative EGD - Rayne, declines transfusion - lower abdominal TTP, ? etiology - improved - New Ascites - ? due to (R) sided CHF - r/o malignancy - will consider paracentesis once H&H higher - Elevated Bilirubin - ? due to passive congestion - biliary ductal dilation, r/o downstream obstruction - MRCP vs EUS (will check if Pacer is MR compatible) - b/l edema and anasarca - azotemia - improved - CHF - COPD - CHF Recommendations - EPO - IV Iron - Check SBFT in am - PPI - Pending studies to consider: - colonoscopy - MRCP vs EUS - paracentesis Jacob Deleon MD Jul 14, 2020 21:45
[2020-07-15] VITALS: BP 101/53
[2020-07-15 04:00] VITALS: BP 121/54
--- NOTE | 2020-07-15 04:00 | NUR ---
NURSE NOTES: patient resting in bed comfortable with no signs of distress. call evans within reach, will continue to monitor.
--- NOTE | 2020-07-15 04:44 | NUR ---
NURSE NOTES: patient resting in bed comfortable with no signs of distress. call evans within reach, will continue to monitor.
--- NOTE | 2020-07-15 06:56 | NUR ---
NURSE HAND-OFF REPORT: Important Events on Shift:[] Patient Status: [] Diet: [] Pending Orders: [] Pending Results/Labs:[] Pending MD notification:[] Latest Vital Signs: Temperature 97.6 , Pulse 61 , B/P 121 /54 , Respiratory Rate 20 , O2 SAT 100 , Nasal Cannula, O2 Flow Rate 2.0 . Vital Sign Comment: [] EKG Rhythm: A-Paced Rhythm change?: N MD Notified?: N - MD Response: Latest Munroe Fall Score: 50 Fall Risk: High Risk Safety Measures: Call light Within Reach, Bed Alarm Zone 1, Side Rails Side Rails x3, Bed position Low and Locked. Fall Precautions: Yellow Socks Yellow Gown Door Sign Patient Fall Education Report given to [].
--- NOTE | 2020-07-15 07:59 | NUR ---
NURSE NOTES: Patient seen in bed in semi fowlers position, with no acute signs of distress and no complaint s of pain 0/10. The patient has a 22G IV that is clean, patent intact and saline locked. the patient is on room air with oxygen saturation within normal limits. The patients bed is in lowest position, locked, side rials x3 and call light within reach.
[2020-07-15 08:00] VITALS: BP 107/54
[2020-07-15] MEDS: Spironolactone 25mg tab ORAL SCH (08:53)
[2020-07-15] MEDS: Furosemide 40mg tab ORAL SCH (08:53)
[2020-07-15] MEDS: Ascorbic Acid 500mg tab ORAL SCH ×2 (08:54→17:52)
[2020-07-15] MEDS: Amiodarone 200mg tab ORAL SCH (08:55)
[2020-07-15] MEDS: Tamsulosin 0.4mg cap ORAL SCH (08:55)
--- NOTE | 2020-07-15 10:55 | NUR ---
PT NOTE Attempted to see patient for PT treatment. Patient off the floor for a test. Will re-attempt later as schedule permits.
--- NOTE | 2020-07-15 11:33 | NUR ---
PT WEEKLY PROGRESS NOTE Patient is being seen by PT for strengthening exercises, bed mobility training and transfer training. Patient requires mod/max assist for bed mobility and mod assist for sit <-> stand with FWW. Patient unable to take any steps at this time. Patient will benefit from continued skilled inpatient PT intervention to increase LE strength and postural stability for improved level of functional mobility, safety and activity tolerance.
--- NOTE | 2020-07-15 11:38 | Surgery Progress Note ---
Surgery Progress Note Subjective Additional Comments not moving much at times non complaint with care plan no n/v labs noted Objective Last 24 Hour Vital Signs Date Time Temp Pulse Resp B/P (MAP) Pulse Ox O2 Delivery O2 Flow Rate FiO2 07/15/20 09:00 Room Air 07/15/20 08:00 98.5 61 20 107/54 (71) 96 07/15/20 08:00 60 07/15/20 04:00 61 07/15/20 04:00 97.6 61 20 121/54 (76) 100 07/15/20 00:00 98.0 62 20 101/53 (69) 99 07/15/20 00:00 60 07/14/20 20:53 Room Air 07/14/20 20:00 66 07/14/20 20:00 97.8 74 20 109/56 (73) 99 07/14/20 16:00 97.5 64 20 122/59 (80) 98 07/14/20 16:00 64 07/14/20 12:00 60 07/14/20 12:00 97.8 72 20 99/53 (68) 98 I&O Intake and Output 07/14/20 07/15/20 19:00 07:00 # Voids 5 3 # Bowel Movements 1 Dressing: saturated Cardiovascular: RSR Respiratory: decreased breath sounds Abdomen: soft, flat, non-tender, present bowel sounds, non-distended Extremities: no tenderness, no cyanosis Laboratory Tests Test 07/15/20 06:50 CA 19-9 Antigen Pending Plan Problems: (1) Anemia (2) Chronic obstructive pulmonary disease (3) Sacral decubitus ulcer Assessment & Plan: Pt presented on admission with multiple Pressure Injuries. Sacral Pressure Injury resolving(L)1.5cm x (W)0.5cm. Base of wound is pink with maceration. Multiple Ulcerations at base of Scrotum . Wounds are resolving(#1) Full thickness Pressure Injury base of wound resolving. Base of wound is 50% mihai 50% pink epithelial(L)2cm x (W)1.2cm. Edges are adherent to base of wound. NO exudate noted. (#2)Wound R testicle resolving. Agnew epithelial at base of wound. No exudate noted (L)2cm x (W)1.2cm. (#3)Wound that is proximally to above documented wounds is also resolving(L)1cm x (W)1cm. Base of wound is 25% mihai ,75% surrounding pink epithelial.. L Heel has resolved. Heel is boggy but blanchable and non-tender when palpated R heel has resolved. R heel is boggy but blanchable and non-tender when palpated. Pt is frequently and heavily incontinent of Bladder. place urinary pouch to minimize further skin breakdown from incontinence. Pt is well endowed and unable to place urinary pouch. Ok to improvise with Fecal pouch to contain incontin ence. Fecal pouch in place and attached to drainage bag. DAILY ESTIMATED NEEDS: Needs based on Cardiac, wound 88kg abw 25-35 kcals/kg 0329-2156 total kcals 1.25-1.5 g protein/kg 110-132 g total protein Fluid per MD, on lasix NUTRITION DIAGNOSIS: Increased kcal and pro needs r/t wound healing as evidenced by w/ full thickness scrotal wound, refer to full wound care eval. CURRENT DIET:CARDIAC PO DIET RECOMMENDATIONS: Liberalized Regular diet/ texture as tolerated w/ variable po intake ADDITIONAL RECOMMENDATIONS: 1) CALIBRATED BED SCALE wt 2) On lasix and aldactone, monitor lytes daily 3) Ensure Enlive TID w/ meals 4) CUT OFF WORKER eval for appropriate texture 5) WOUND CARE: continue MVI and Vit C KELLEY BID added to tray (4) PNA (pneumonia) (5) Elevated troponin (6) UTI (lower urinary tract infection) (7) Acute exacerbation of CHF (congestive heart failure) (8) UTI (lower urinary tract infection) (9) Atrial fibrillation (10) CHF (congestive heart failure) (11) Orthopnea (12) Dyspnea on exertion (13) Swelling of lower extremity Assessment & Plan: not moving much breakdown noted edema stable nutritional optimization (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 (16) Hemoptysis (17) Stroke (18) COPD exacerbation (19) Acute exacerbation of CHF (congestive heart failure) (20) Epistaxis Erlin Kearns Jul 15, 2020 11:38
[2020-07-15 12:00] VITALS: BP 121/55
--- NOTE | 2020-07-15 13:50 | NUR ---
CLERK TELEGRAPH SERVICE NOTES ORDER FAXED TO [facility] FOR A HOSPITAL BED. WILL FOLLOW UP. [facility] [phone]
--- NOTE | 2020-07-15 15:08 | General Progress Note ---
Subjective Allergies: Coded Allergies: No Known Allergies (Verified , 01/23/09) Subjective no new complaints no abdominal complaints H&H noted - still Hg 6.8 Objective Last 24 Hour Vital Signs Date Time Temp Pulse Resp B/P (MAP) Pulse Ox O2 Delivery O2 Flow Rate FiO2 07/15/20 12:00 97.5 61 18 121/55 (77) 95 07/15/20 12:00 60 07/15/20 09:00 Room Air 07/15/20 08:00 98.5 61 20 107/54 (71) 96 07/15/20 08:00 60 07/15/20 04:00 61 07/15/20 04:00 97.6 61 20 121/54 (76) 100 07/15/20 00:00 98.0 62 20 101/53 (69) 99 07/15/20 00:00 60 07/14/20 20:53 Room Air 07/14/20 20:00 66 07/14/20 20:00 97.8 74 20 109/56 (73) 99 07/14/20 16:00 97.5 64 20 122/59 (80) 98 07/14/20 16:00 64 Intake and Output 0 07/14/20 07/15/20 19:00 07:00 # Voids 5 3 # Bowel Movements 1 Laboratory Tests 07/15/20 06:50: CA 19-9 Antigen [Pending] Height (Feet): 6 Height (Inches): 1.00 Weight (Pounds): 180 Objective WDWN NCAT supple CTA RRR abd soft NT, but distended trace edema Assessment/Plan Status: stable, progressing Assessment/Plan: Assessment - Iron deficiency anemia - negative EGD - unable to oder capsule endoscopy - SBFT pending - Yashhodisha, declines transfusion - lower abdominal TTP, ? etiology - improved - New Ascites - ? due to (R) sided CHF - r/o malignancy - will consider paracentesis once H&H higher - Elevated Bilirubin - ? due to passive congestion - biliary ductal dilation, r/o downstream obstruction - Cannot order MRCP due to pacer --> will need EUS - Check CEA and CA 19-9 - b/l edema and anasarca - azotemia - improved - CHF - COPD - CHF Recommendations - EPO - IV Iron - Check SBFT - PPI - Pending studies to consider: - colonoscopy - EUS - paracentesis Jacob Deleon MD Jul 15, 2020 15:08
--- NOTE | 2020-07-15 15:31 | NUR ---
RADIOLOGY DEPT., SMALL BOWEL SERIES IS COMPLETED.- P.DYE
--- NOTE | 2020-07-15 15:34 | General Progress Note ---
Subjective ROS Limited/Unobtainable: No Constitutional: Reports: malaise, weakness HEENT: Reports: no symptoms Cardiovascular: Reports: edema Respiratory: Reports: cough, shortness of breath Gastrointestinal/Abdominal: Reports: no symptoms Genitourinary: Reports: no symptoms Neurologic/Psychiatric: Reports: pre-existing deficit Endocrine: Reports: no symptoms Hematologic/Lymphatic: Reports: anemia Allergies: Coded Allergies: No Known Allergies (Verified , 01/23/09) All Systems: reviewed and negative except above Subjective no change. stable. bed bound. no fever or chills. no sob. edema improved. H/h still low but trending up. Objective Last 24 Hour Vital Signs Date Time Temp Pulse Resp B/P (MAP) Pulse Ox O2 Delivery O2 Flow Rate FiO2 07/15/20 12:00 97.5 61 18 121/55 (77) 95 07/15/20 12:00 60 07/15/20 09:00 Room Air 07/15/20 08:00 98.5 61 20 107/54 (71) 96 07/15/20 08:00 60 07/15/20 04:00 61 07/15/20 04:00 97.6 61 20 121/54 (76) 100 07/15/20 00:00 98.0 62 20 101/53 (69) 99 07/15/20 00:00 60 07/14/20 20:53 Room Air 07/14/20 20:00 66 07/14/20 20:00 97.8 74 20 109/56 (73) 99 07/14/20 16:00 97.5 64 20 122/59 (80) 98 07/14/20 16:00 64 Intake and Output 07/14/20 07/15/20 19:00 07:00 # Voids 5 3 # Bowel Movements 1 Laboratory Tests 07/15/20 06:50: CA 19-9 Antigen [Pending] Height (Feet): 6 Height (Inches): 1.00 Weight (Pounds): 180 Objective General Appearance: WD/WN, alert, confused EENT: normal ENT inspection Neck: normal alignment, supple Cardiovascular: normal rate, regular rhythm Respiratory/Chest: chest wall non-tender, lungs clear, normal breath sounds, no respiratory distress, no accessory muscle use Abdomen: normal bowel sounds, non tender, soft, no organomegaly Edema: 3+ Pedal (L), 3+ Pedal (R) Edema: severe edema Neurologic: rare/endangered species specialist II-XII 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, alert, responsive Skin: normal pigmentation, warm/dry Assessment/Plan Problem List: (1) Acute exacerbation of CHF (congestive heart failure) (2) Swelling of lower extremity ICD Codes: M79.89 - Other specified soft tissue disorders SNOMED: 497802773, 753949890 (3) Orthopnea (4) CHF (congestive heart failure) ICD Codes: I50.9 - CHF (congestive heart failure) SNOMED: 43856958 (5) Atrial fibrillation ICD Codes: I48.91 - Atrial fibrillation SNOMED: 28682898 (6) Anemia ICD Codes: D64.9 - Anemia, unspecified SNOMED: 056300543 (7) Elevated troponin ICD Codes: R74.8 - Elevated troponin SNOMED: 745447949 Status: stable, progressing Assessment/Plan: po lasix Elevate legs Monitor renal function and lytes diuresis Continue Epogen and iron supplements monitor labs Monitor for bleeding ppi rx monitor labs probably needs snf. prefers to take pt home with home health. not agreeable to snf pt/ot Sumit Hallman MD Jul 15, 2020 15:34
[2020-07-15 16:00] VITALS: BP 111/54
--- NOTE | 2020-07-15 16:22 | Diagnostic Imaging Report ---
Indication: GI bleed Technique: Patient ingested oral thin liquid barium. Serial overhead films were obtained. No fluoroscopy was utilized. Total number of images is 11 Comparison: July 13, 2005 Findings: [employer] Professor image demonstrates unremarkable bowel gas pattern. There are degenerative changes of the lumbar spine. Images after ingestion of contrast demonstrate mildly dilated duodenum but brisk transit of contrast into the small bowel. Small bowel caliber is normal. Mucosal pattern is normal. No filling defects or other focal abnormality demonstrated. Contrast is seen within the colon on the 4.5 hour film. Impression: Negative
--- NOTE | 2020-07-15 18:28 | Cardiology Progress Note ---
Subjective DATE OF SERVICE: Jul 15, 2020 Overall condition unchanged. EGD completed 07/11/20 without complication; no bleeding source found. Small bowel series (07/15/20) normal. No CP. No SOB in bedbound state or with limited mobilization. No N/V/D or pain. Appetite fair. Hemoglobin remains below 7gm/dl; its back to 6.8 gm/dl yesterday; no signs of GI blood loss. Needs almost total assist with care. Objective Last 24 Hour Vital Signs Date Time Temp Pulse Resp B/P (MAP) Pulse Ox O2 Delivery O2 Flow Rate FiO2 07/15/20 16:00 97.5 60 20 111/54 (73) 97 07/15/20 16:00 60 07/15/20 12:00 97.5 61 18 121/55 (77) 95 07/15/20 12:00 60 07/15/20 09:00 Room Air 07/15/20 08:00 98.5 61 20 107/54 (71) 96 07/15/20 08:00 60 07/15/20 04:00 61 07/15/20 04:00 97.6 61 20 121/54 (76) 100 07/15/20 00:00 98.0 62 20 101/53 (69) 99 07/15/20 00:00 60 07/14/20 20:53 Room Air 07/14/20 20:00 66 07/14/20 20:00 97.8 74 20 109/56 (73) 99 HEENT: normal ENT inspection RHYTHM: Afib, other - demand Ventric pacing LUNGS: diminished breath sounds CARDIAC: normal rate, normal S1 and S2, irregularly irregular, systolic murmur - 1/6 apical systolic murmur ABDOMEN: normal bowel sounds EXTREMITIES: normal range of motion, +3 edema Laboratory Tests Test 07/15/20 06:50 Carcinoembryonic Antigen Pending CA 19-9 Antigen Pending Assessment/Plan Assessment/Plan Severe anemia GI bleed Jehovahs witness Ac/chr diastolic CHF now compensated PAFib Pacemaker Hx thoracic aorta repair Elev LFT's may be due to passive congestion COPD Conjunctivitis Abd pain Ac/chr renal failure - improved Orthostatic risk Hypomagnesemia Tumor markers pending (CEA/Ca19-9) Continue hydrocodone prn for back pain and CROSS Diuresis adjustment based on clinical status. O2 suppl IV iron and sq EPO Titrate anti-failure rx - decrease for low range BP. No aspirin or anticoag rx; off NSAID's Topical abx IV magnesium repl and oral potassium rx as needed Will need to arrange hospital bed and other assist before can manage at home. Per GI, defer colonscopy until hb above 8. Yvan Encarnacion MD Jul 15, 2020 18:28
[2020-07-15] MEDS: HYDROcodone/Acetamin 5/325 tab ORAL PRN (18:52)
--- NOTE | 2020-07-15 19:04 | NUR ---
NURSE HAND-OFF REPORT: Important Events on Shift:[Small Bowel Xray: negative, low HGB] Patient Status: [Full code] Diet: [Cardiac] Pending Orders: [N/A] Pending Results/Labs:[N/A] Pending MD notification:[N/A] Latest Vital Signs: Temperature 97.5 , Pulse 60 , B/P 111 /54 , Respiratory Rate 20 , O2 SAT 97 , Nasal Cannula, O2 Flow Rate 2.0 . Vital Sign Comment: [] EKG Rhythm: A-Paced, SR, 1st AVB Rhythm change?: N MD Notified?: N - MD Response: Latest Munroe Fall Score: 50 Fall Risk: High Risk Safety Measures: Call light Within Reach, Bed Alarm Zone 1, Side Rails Side Rails x3, Bed position Low and Locked. Fall Precautions: Yellow Socks Yellow Gown Door Sign Patient Fall Education Report given to [JENNIFER Monet].
--- NOTE | 2020-07-15 19:48 | NUR ---
NURSE NOTES: received patient alert awake resting comfortable in bed. assessment initiated. patient show no signs of distress. discussed plan of care. bed in low position. call light within reach, will continue to monitor.
[2020-07-15 20:00] VITALS: BP 103/47
[2020-07-15] MEDS: Atorvastatin 20mg tab ORAL SCH (20:44)
[2020-07-16] VITALS: BP 102/47
[2020-07-16 04:00] VITALS: BP 108/53
--- NOTE | 2020-07-16 04:00 | NUR ---
NURSE NOTES: patient resting comfortable in bed with no signs of distress. call evans within reach, will continue to monitor.
--- NOTE | 2020-07-16 06:52 | NUR ---
NURSE HAND-OFF REPORT: Important Events on Shift:[] Patient Status: [] Diet: [] Pending Orders: [] Pending Results/Labs:[] Pending MD notification:[] Latest Vital Signs: Temperature 97.8 , Pulse 60 , B/P 108 /53 , Respiratory Rate 20 , O2 SAT 97 , Nasal Cannula, O2 Flow Rate 2.0 . Vital Sign Comment: [] EKG Rhythm: A-Paced, SR, 1st AVB Rhythm change?: N MD Notified?: N - MD Response: Latest Munroe Fall Score: 50 Fall Risk: High Risk Safety Measures: Call light Within Reach, Bed Alarm Zone 1, Side Rails Side Rails x3, Bed position Low and Locked. Fall Precautions: Yellow Socks Yellow Gown Door Sign Patient Fall Education Report given to [].
--- NOTE | 2020-07-16 07:32 | NUR ---
NURSE NOTES: Patient seen in bed in low fowlers position with no acute signs of distress and no complaints of pain 0/10. The patient is on room air with oxygen saturation within normal limits. The patient has a R FA 22G IV that is clean, patent intact and saline locked. The patients bed is in lowest position, locked, side rails x3, bed alarm in zone 1 and call light within reach. Patient instructed to press call light for further needs.
[2020-07-16 08:00] VITALS: BP 145/61
--- NOTE | 2020-07-16 08:42 | NUR ---
*-*DISCHARGE PLAN*-* PATIENT HAS BEEN ACCEPTED WITH: [facility] P:[phone] S/W RACHELL, WILL SERVICE PATIENT UPON DISCHARGE.
[2020-07-16] MEDS: Tamsulosin 0.4mg cap ORAL SCH (08:47)
[2020-07-16] MEDS: Amiodarone 200mg tab ORAL SCH (08:48)
[2020-07-16] MEDS: Ascorbic Acid 500mg tab ORAL SCH ×2 (08:48→17:08)
[2020-07-16] MEDS: Spironolactone 25mg tab ORAL SCH (08:49)
[2020-07-16] MEDS: Furosemide 40mg tab ORAL SCH (08:49)
--- NOTE | 2020-07-16 11:03 | General Progress Note ---
Subjective ROS Limited/Unobtainable: No Constitutional: Reports: malaise, weakness HEENT: Reports: no symptoms Cardiovascular: Reports: edema Respiratory: Reports: shortness of breath Gastrointestinal/Abdominal: Reports: no symptoms Genitourinary: Reports: no symptoms Neurologic/Psychiatric: Reports: no symptoms Endocrine: Reports: no symptoms Hematologic/Lymphatic: Reports: anemia Allergies: Coded Allergies: No Known Allergies (Verified , 01/23/09) All Systems: reviewed and negative except above Subjective no real change. in bed. resting. no new complaints. mild sob. no fever or chills. no cough. no reports of bleeding. cards and GI noted. Objective Last 24 Hour Vital Signs Date Time Temp Pulse Resp B/P (MAP) Pulse Ox O2 Delivery O2 Flow Rate FiO2 07/16/20 09:00 Room Air 07/16/20 08:00 96.7 61 19 145/61 (89) 97 07/16/20 08:00 60 07/16/20 04:00 60 07/16/20 04:00 97.8 64 20 108/53 (71) 97 07/16/20 00:00 97.6 61 20 102/47 (65) 98 07/16/20 00:00 60 07/15/20 21:00 Room Air 07/15/20 20:00 97.8 61 20 103/47 (65) 97 07/15/20 20:00 60 07/15/20 16:00 97.5 60 20 111/54 (73) 97 07/15/20 16:00 60 07/15/20 12:00 97.5 61 18 121/55 (77) 95 07/15/20 12:00 60 Intake and Output 07/15/20 07/16/20 19:00 07:00 Intake Total 120 ml Balance 120 ml Intake Oral 120 ml # Voids 3 3 # Bowel Movements 1 Height (Feet): 6 Height (Inches): 1.00 Weight (Pounds): 180 Objective General Appearance: WD/WN, alert, confused EENT: normal ENT inspection Neck: normal alignment, supple Cardiovascular: normal rate, regular rhythm Respiratory/Chest: chest wall non-tender, lungs clear, normal breath sounds, no respiratory distress, no accessory muscle use Abdomen: normal bowel sounds, non tender, soft, no organomegaly Edema: 3+ Pedal (L), 3+ Pedal (R) Edema: severe edema 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, alert, responsive Skin: normal pigmentation, warm/dry Assessment/Plan Problem List: (1) Acute exacerbation of CHF (congestive heart failure) (2) Swelling of lower extremity ICD Codes: M79.89 - Other specified soft tissue disorders SNOMED: 790405301, 888265522 (3) Orthopnea (4) CHF (congestive heart failure) ICD Codes: I50.9 - CHF (congestive heart failure) SNOMED: 03980296 (5) Atrial fibrillation ICD Codes: I48.91 - Atrial fibrillation SNOMED: 58521088 (6) Anemia ICD Codes: D64.9 - Anemia, unspecified SNOMED: 258434046 (7) Elevated troponin ICD Codes: R74.8 - Elevated troponin SNOMED: 702528676 Status: stable, progressing Assessment/Plan: po lasix Elevate legs woudn care Monitor renal function and lytes diuresis Continue Epogen and iron supplements monitor labs Monitor for bleeding ppi rx monitor labs EUS and paracentesis per GI colonoscopy when inr >8 probably needs snf. prefers to take pt home with home health. not agreeable to snf pt/ot Sumit Hallman MD Jul 16, 2020 11:03
[2020-07-16 12:00] VITALS: BP 130/98
--- NOTE | 2020-07-16 13:02 | NUR ---
RD ASSESSMENT & RECOMMENDATIONS SEE CARE ACTIVITY FOR COMPLETE ASSESSMENT DAILY ESTIMATED NEEDS: Needs based on Cardiac, wound 88kg abw 25-35 kcals/kg 7370-4349 total kcals 1.25-1.5 g protein/kg 110-132 g total protein Fluid per MD, on lasix NUTRITION DIAGNOSIS: Increased kcal and pro needs r/t wound healing as evidenced by w/ full thickness scrotal wound, refer to full wound care eval. CURRENT DIET:CARDIAC PO DIET RECOMMENDATIONS: Liberalized Regular diet/ texture as tolerated w/ variable po intake ENTERAL NUTRITION RECOMMENDATIONS: Non oral feed if part of POC w/ continued poor po intake ADDITIONAL RECOMMENDATIONS: 1) CALIBRATED BED SCALE wt 2) On lasix and aldactone, monitor lytes daily 3) Ensure Enlive TID w/ meals 4) INTERNAL REVENUE AGENT eval for appropriate texture 5) WOUND CARE: continue MVI and Vit C KELLEY BID added to tray .
--- NOTE | 2020-07-16 13:25 | Surgery Progress Note ---
Surgery Progress Note Subjective Additional Comments wants to go home ? snf but reluctant no n/v labs noted worsening breakdown Objective Last 24 Hour Vital Signs Date Time Temp Pulse Resp B/P (MAP) Pulse Ox O2 Delivery O2 Flow Rate FiO2 07/16/20 12:00 60 07/16/20 12:00 97.6 87 20 130/98 (109) 98 07/16/20 09:00 Room Air 07/16/20 08:00 96.7 61 19 145/61 (89) 97 07/16/20 08:00 60 07/16/20 04:00 60 07/16/20 04:00 97.8 64 20 108/53 (71) 97 07/16/20 00:00 97.6 61 20 102/47 (65) 98 07/16/20 00:00 60 07/15/20 21:00 Room Air 07/15/20 20:00 97.8 61 20 103/47 (65) 97 07/15/20 20:00 60 07/15/20 16:00 97.5 60 20 111/54 (73) 97 07/15/20 16:00 60 I&O Intake and Output 07/15/20 07/16/20 19:00 07:00 Intake Total 120 ml Balance 120 ml Intake Oral 120 ml # Voids 3 3 # Bowel Movements 1 Dressing: saturated Cardiovascular: RSR Respiratory: decreased breath sounds Abdomen: soft, non-tender, present bowel sounds, non-distended Extremities: no edema, no tenderness, no cyanosis Plan Problems: (1) Anemia (2) Chronic obstructive pulmonary disease (3) Sacral decubitus ulcer Assessment & Plan: Pt presented on admission with multiple Pressure Injuries. Sacral Pressure Injury resolving(L)1.5cm x (W)0.5cm. Base of wound is pink with maceration. Multiple Ulcerations at base of Scrotum . Wounds are resolving(#1) Full thickness Pressure Injury base of wound resolving. Base of wound is 50% mihai 50% pink epithelial(L)2cm x (W)1.2cm. Edges are adherent to base of wound. NO exudate noted. (#2)Wound R testicle resolving. [place] epithelial at base of wound. No exudate noted (L)2cm x (W)1.2cm. (#3)Wound that is proximally to above documented wounds is also resolving(L)1cm x (W)1cm. Base of wound is 25% mihai ,75% surrounding pink epithelial.. L Heel has resolved. Heel is boggy but blanchable and non-tender when palpated R heel has resolved. R heel is boggy but blanchable and non-tender when palpat ed. Pt is frequently and heavily incontinent of Bladder. place urinary pouch to minimize further skin breakdown from incontinence. Pt is well endowed and unable to place urinary pouch. Ok to improvise with Fecal pouch to contain incontinence. Fecal pouch in place and attached to drainage bag. DAILY ESTIMATED NEEDS: Needs based on Cardiac, wound 88kg abw 25-35 kcals/kg 4867-9297 total kcals 1.25-1.5 g protein/kg 110-132 g total protein Fluid per MD, on lasix NUTRITION DIAGNOSIS: Increased kcal and pro needs r/t wound healing as evidenced by w/ full thickness scrotal wound, refer to full wound care eval. 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 (16) Hemoptysis (17) Stroke (18) COPD exacerbation (19) Acute exacerbation of CHF (congestive heart failure) (20) Epistaxis Erlin Kearns Jul 16, 2020 13:25
--- NOTE | 2020-07-16 13:30 | NUR ---
EDUCATIONAL AID NOTES SPOKE WITH EDDIE FROM [facility], ORDER FOR BED IS BEING PROCESSED. WILL FOLLOW UP WITH APPROVAL.
--- NOTE | 2020-07-16 14:20 | NUR ---
NURSE NOTES:WOUND CARE FOLLOW-UP NOTES:Pt presented on admission with multiple Scrotal Pressure injuries. Wounds are resolving.(#1)Wound at base of Scrotum is superficial with re-epithelialization. NO exudate noted. Edges are adherent to base of wound(L)1.5cm x (W)0.9cm. #2 Wound R testicle (proximally)is resolving. Base of wound is superficial with re-epithelialization.(L)1cm x (W)0.4cm. (#3)Wound R testicle(distally) resolving . Base of wound is superficial, pink with re-epithelialization. edges are adherent to base of wound.(L)1cm x (W)1cm. Small callused area at cleft noted(L)1cm x (W)0.5cm. Pt complained site is tender when minimally palpated or when he lies on his back.No erythema fluctuance or induration to surrounding sacrum.Pt confirmed Hx of having Pressure ulcer at source of callusing. R heel is boggy but blanchable. L Heel is boggy with non-blanchable erythema with delineated margins(L)4.5cm x (W)7.5cm.Tender when minimally palpated. Tx.Plan: Apply Moisture Barrier Paste to Scrotal Ulcers. Cover with Optifoam drsg. Change every 3 days and prn. Please cover Scrotal wounds with Optifoam to minimize friction. Apply Moisture Barrier Paste to Sacrum. Cover with Optifoam drsg. Change every 3 days and prn. Apply Cavilon Skin Barrier to Both heels. Cover each heel with Optifoam drsg. Change every 7 days and prn. Reposition at least every 2hours or as tolerated. Off-load heels with Pillow.
[2020-07-16 16:00] VITALS: BP 141/61
--- NOTE | 2020-07-16 19:36 | NUR ---
NURSE HAND-OFF REPORT: Important Events on Shift:[P200 mattress, wound care, BM] Patient Status: [Full code] Diet: [Cardiac] Pending Orders: [N/A] Pending Results/Labs:[CEA, CA 19-9] Pending MD notification:[N/A] Latest Vital Signs: Temperature 96.6 , Pulse 93 , B/P 141 /61 , Respiratory Rate 19 , O2 SAT 96 , Nasal Cannula, O2 Flow Rate 2.0 . Vital Sign Comment: [] EKG Rhythm: A-Paced, SR, 1st AVB Rhythm change?: N MD Notified?: N - MD Response: Latest Munroe Fall Score: 50 Fall Risk: High Risk Safety Measures: Call light Within Reach, Bed Alarm Zone 1, Side Rails Side Rails x3, Bed position Low and Locked. Fall Precautions: Yellow Socks Yellow Gown Door Sign Patient Fall Education Report given to [JENNIFER Monet].
--- NOTE | 2020-07-16 19:40 | NUR ---
NURSE NOTES: received patient resting comfortable in bed with no signs of distress. no chest pain. no discomfort. assessment initiated. discussed plan of care. bed in low position. call evans within reach, will continue to monitor frequently and reposition.
[2020-07-16 20:00] VITALS: BP 107/51
[2020-07-16] MEDS: Atorvastatin 20mg tab ORAL SCH (20:33)
[2020-07-16] MEDS: Epoetin Alfa-EPBX (NON ESRD)10,000 unit/ml vial SUBQ SCH (20:33)
--- NOTE | 2020-07-16 21:25 | General Progress Note ---
Subjective Allergies: Coded Allergies: No Known Allergies (Verified , 01/23/09) Subjective no new complaints no abdominal complaints H&H ordered for tomorrow advised can to EUS as inpatient if Hg at least 7 Objective Last 24 Hour Vital Signs Date Time Temp Pulse Resp B/P (MAP) Pulse Ox O2 Delivery O2 Flow Rate FiO2 07/16/20 16:00 96.6 93 19 141/61 (87) 96 07/16/20 16:00 60 07/16/20 12:00 60 07/16/20 12:00 97.6 87 20 130/98 (109) 98 07/16/20 09:00 Room Air 07/16/20 08:00 96.7 61 19 145/61 (89) 97 07/16/20 08:00 60 07/16/20 04:00 60 07/16/20 04:00 97.8 64 20 108/53 (71) 97 07/16/20 00:00 97.6 61 20 102/47 (65) 98 07/16/20 00:00 60 Intake and Output 07/15/20 07/16/20 19:00 07:00 Intake Total 120 ml Balance 120 ml Intake Oral 120 ml # Voids 3 3 # Bowel Movements 1 Height (Feet): 6 Height (Inches): 1.00 Weight (Pounds): 180 Objective WDWN NCAT supple CTA RRR abd soft NT, but distended trace edema Assessment/Plan Status: stable, progressing Assessment/Plan: Assessment - Iron deficiency anemia - negative EGD - unable to oder capsule endoscopy - SBFT normal - Jehovas, declines transfusion - lower abdominal TTP, ? etiology - improved - New Ascites - ? due to (R) sided CHF - r/o malignancy - will consider paracentesis once H&H higher - Elevated Bilirubin - ? due to passive congestion - biliary ductal dilation, r/o downstream obstruction - Cannot order MRCP due to pacer --> will need EUS - Check CEA and CA 19-9 - pending - b/l edema and anasarca - azotemia - improved - CHF - COPD - CHF Recommendations - EPO - IV Iron - PPI - f/u CEA and CA 19-9 - Pending studies to consider: - colonoscopy - EUS - paracentesis Jacob Deleon MD Jul 16, 2020 21:25
[2020-07-17] VITALS (7 sets, daily range): BP systolic 92–126; BP diastolic 48–73
--- NOTE | 2020-07-17 01:08 | Cardiology Progress Note ---
Subjective DATE OF SERVICE: Jul 16, 2020 PATIENTS VENOFER WAS DISCONT'D BY PHARMACY WITHOUT NOTIFYING ANY MD OF EXPIRATION. EGD completed 07/11/20 without complication; no bleeding source found. Small bowel series (07/15/20) normal. No CP. No SOB in bedbound state or with limited mobilization. No N/V/D or pain. Appetite fair. Hemoglobin remains below 7gm/dl; its back to 6.8 gm/dl yesterday; no signs of GI blood loss. Needs almost total assist with care. Objective Last 24 Hour Vital Signs Date Time Temp Pulse Resp B/P (MAP) Pulse Ox O2 Delivery O2 Flow Rate FiO2 07/16/20 21:00 Room Air 07/16/20 20:00 60 07/16/20 20:00 98.0 62 20 107/51 (69) 98 07/16/20 16:00 96.6 93 19 141/61 (87) 96 07/16/20 16:00 60 07/16/20 12:00 60 07/16/20 12:00 97.6 87 20 130/98 (109) 98 07/16/20 09:00 Room Air 07/16/20 08:00 96.7 61 19 145/61 (89) 97 07/16/20 08:00 60 07/16/20 04:00 60 07/16/20 04:00 97.8 64 20 108/53 (71) 97 HEENT: normal ENT inspection RHYTHM: Afib, other - demand Ventric pacing LUNGS: diminished breath sounds CARDIAC: normal rate, normal S1 and S2, irregularly irregular, systolic murmur - 1/6 apical systolic murmur ABDOMEN: normal bowel sounds EXTREMITIES: normal range of motion, +3 edema Assessment/Plan Assessment/Plan Severe anemia with iron deficiency GI bleed Jehovahs witness Ac/chr diastolic CHF now compensated PAFib Pacemaker Hx thoracic aorta repair Elev LFT's may be due to passive congestion COPD Conjunctivitis Abd pain Ac/chr renal failure - improved Orthostatic risk Hypomagnesemia Venofer resumed. Tumor markers pending (CEA/Ca19-9) Continue hydrocodone prn for back pain and CROSS Diuresis adjustment based on clinical status. O2 suppl IV iron and sq EPO Titrate anti-failure rx - decrease for low range BP. No aspirin or anticoag rx; off NSAID's Topical abx IV magnesium repl and oral potassium rx as needed Will need to arrange hospital bed and other assist before can manage at home. Per GI, defer colonscopy until hb above 8. Yvan Encarnacion MD Jul 17, 2020 01:08
--- NOTE | 2020-07-17 02:15 | NUR ---
NURSE NOTES: patient resting comfortable in bed with no signs of distress. repositioned. call evans within reach, will continue to monitor.
[2020-07-17] MEDS ORDERED: Iron Sucrose 100 MG in NS 55 ML IVPB ONE ×2 (03:00→09:00)
--- NOTE | 2020-07-17 04:23 | NUR ---
NURSE NOTES: Devin scheduled for 0300 as new order. pharmacy closed. per charge nurse its okay to call the hotline and have them reschedule for in the morning.
[2020-07-17 06:11] LABS: HEMATOCRIT 23.5 % (42.0-52.0); MEAN CORPUSCULAR VOLUME 80 FL (80-99); PLATELET COUNT 277 K/UL (150-450); RED BLOOD COUNT 2.92 M/UL (4.70-6.10); RED CELL DISTRIBUTION WIDTH 24.7 % (11.6-14.8); WHITE BLOOD COUNT 6.7 K/UL (4.8-10.8)
[2020-07-17 06:46] LABS: ALBUMIN 2.7 G/DL (3.4-5.0); ALBUMIN/GLOBULIN RATIO 0.6 (1.0-2.7); BILIRUBIN,TOTAL 1.9 MG/DL (0.2-1.0); CALCIUM 10.9 MG/DL (8.5-10.1); CREATININE 1.6 MG/DL (0.55-1.30); POTASSIUM 4.4 MMOL/L (3.5-5.1)
[2020-07-17 06:49] LABS: HEMOGLOBIN 6.5 G/DL (14.2-18.0)
--- NOTE | 2020-07-17 06:55 | NUR ---
NURSE NOTES: patient hbg level is 6.8. MD aware. charge are. patient is schedule to receive iron infusion. patient is a Jehovah witness. will continue to monitor. no new orders.
[2020-07-17 07:05] LABS: BILIRUBIN,DIRECT 1.2 MG/DL (0.0-0.3)
--- NOTE | 2020-07-17 07:05 | NUR ---
NURSE HAND-OFF REPORT: Important Events on Shift:[] Patient Status: [] Diet: [] Pending Orders: [] Pending Results/Labs:[] Pending MD notification:[] Latest Vital Signs: Temperature 97.8 , Pulse 60 , B/P 115 /57 , Respiratory Rate 20 , O2 SAT 97 , Nasal Cannula, O2 Flow Rate 2.0 . Vital Sign Comment: [] EKG Rhythm: A-Paced, SR, 1st AVB Rhythm change?: N MD Notified?: N - MD Response: Latest Munroe Fall Score: 50 Fall Risk: High Risk Safety Measures: Call light Within Reach, Bed Alarm Zone 1, Side Rails Side Rails x3, Bed position Low and Locked. Fall Precautions: Yellow Socks Yellow Gown Door Sign Patient Fall Education Report given to [].
--- NOTE | 2020-07-17 07:31 | NUR ---
NURSE NOTES: The patient is alert and oriented x4, cooperative with his care and doesn't appear to be in any active distress at this time. He was noted on 2 liters of oxygen via NC with Spo2 % 96%. IV line noted in the RFA 22g that is intact and asymptomatic. The bed in lowest position, call light within easy reach. will continue to monitor as indicated.
[2020-07-17] MEDS: Spironolactone 25mg tab ORAL SCH (08:17)
[2020-07-17] MEDS: Amiodarone 200mg tab ORAL SCH (08:17)
[2020-07-17] MEDS: Furosemide 40mg tab ORAL SCH (08:17)
[2020-07-17] MEDS: Tamsulosin 0.4mg cap ORAL SCH (08:17)
[2020-07-17] MEDS: Ascorbic Acid 500mg tab ORAL SCH ×2 (08:18→17:35)
--- NOTE | 2020-07-17 10:08 | Surgery Progress Note ---
Surgery Progress Note Subjective Additional Comments no acute events comfortable working with pt stood up yesterday may walk today Objective Last 24 Hour Vital Signs Date Time Temp Pulse Resp B/P (MAP) Pulse Ox O2 Delivery O2 Flow Rate FiO2 07/17/20 08:00 60 07/17/20 08:00 97.1 59 18 105/53 (70) 97 07/17/20 04:00 97.8 61 20 115/57 (76) 97 07/17/20 04:00 60 07/17/20 00:00 60 07/17/20 00:00 98.3 61 20 92/48 (63) 97 07/16/20 21:00 Room Air 07/16/20 20:00 60 07/16/20 20:00 98.0 62 20 107/51 (69) 98 07/16/20 16:00 96.6 93 19 141/61 (87) 96 07/16/20 16:00 60 07/16/20 12:00 60 07/16/20 12:00 97.6 87 20 130/98 (109) 98 I&O Intake and Output 07/16/20 07/17/20 19:00 07:00 Intake Total 120 ml Balance 120 ml Intake Oral 120 ml # Voids 2 4 # Bowel Movements 1 Dressing: saturated Cardiovascular: RSR Respiratory: decreased breath sounds Abdomen: soft, non-tender, present bowel sounds Extremities: no tenderness, no cyanosis Laboratory Tests Test 07/17/20 05:55 White Blood Count 6.7 K/UL (4.8-10.8) Red Blood Count 2.92 M/UL (4.70-6.10) L Hemoglobin 6.5 G/DL (14.2-18.0) *L Hematocrit 23.5 % (42.0-52.0) L Mean Corpuscular Volume 80 FL (80-99) Mean Corpuscular Hemoglobin 22.3 PG (27.0-31.0) L Mean Corpuscular Hemoglobin Concent 27.7 G/DL (32.0-36.0) L Red Cell Distribution Width 24.7 % (11.6-14.8) H Platelet Count 277 K/UL (150-450) Mean Platelet Volume 5.4 FL (6.5-10.1) L Neutrophils (%) (Auto) % (45.0-75.0) Lymphocytes (%) (Auto) % (20.0-45.0) Monocytes (%) (Auto) % (1.0-10.0) Eosinophils (%) (Auto) % (0.0-3.0) Basophils (%) (Auto) % (0.0-2.0) Differential Total Cells Counted 100 Neutrophils % (Manual) 75 % (45-75) Lymphocytes % (Manual) 13 % (20-45) L Monocytes % (Manual) 5 % (1-10) Eosinophils % (Manual) 7 % (0-3) H Basophils % (Manual) 0 % (0-2) Band Neutrophils 0 % (0-8) Platelet Estimate Adequate Platelet Morphology Normal Polychromasia 1+ Hypochromasia 2+ Anisocytosis 3+ Schistocytes 1+ Sodium Level 139 MMOL/L (136-145) Potassium Level 4.4 MMOL/L (3.5-5.1) Chloride Level 103 MMOL/L (98-107) Carbon Dioxide Level 31 MMOL/L (21-32) Anion Gap 6 mmol/L (5-15) Blood Urea Nitrogen 34 mg/dL (7-18) H Creatinine 1.6 MG/DL (0.55-1.30) H Estimat Glomerular Filtration Rate 50.2 mL/min (>60) Glucose Level 85 MG/DL (74-106) Calcium Level 10.9 MG/DL (8.5-10.1) H Total Bilirubin 1.9 MG/DL (0.2-1.0) H Direct Bilirubin 1.2 MG/DL (0.0-0.3) H Aspartate Amino Transf (AST/SGOT) 28 U/L (15-37) Alanine Aminotransferase (ALT/SGPT) 12 U/L (12-78) Alkaline Phosphatase 79 U/L (46-116) Total Protein 7.0 G/DL (6.4-8.2) Albumin 2.7 G/DL (3.4-5.0) L Globulin 4.3 g/dL Albumin/Globulin Ratio 0.6 (1.0-2.7) L Plan Problems: (1) Anemia (2) Chronic obstructive pulmonary disease (3) Sacral decubitus ulcer Assessment & Plan: Pt presented on admission with multiple Pressure Injuries. Sacral Pressure Injury resolving(L)1.5cm x (W)0.5cm. Base of wound is pink with maceration. Multiple Ulcerations at base of Scrotum . Wounds are resolving(#1) Full thickness Pressure Injury base of wound resolving. Base of wound is 50% mihai 50% pink epithelial(L)2cm x (W)1.2cm. Edges are adherent to base of wound. NO exudate noted. (#2)Wound R testicle resolving. [place] epithelial at base of wound. No exudate noted (L)2cm x (W)1.2cm. (#3)Wound that is proximally to above documented wounds is also resolving(L)1cm x (W)1cm. Base of wound is 25% mihai ,75% surrounding pink epithelial.. L Heel has resolved. Heel is boggy but blanchable and non-tender when palpated R heel has resolved. R heel is boggy but blanchable and non-tender when palpated. Pt is frequently and heavily incontinent of Bladder. place urinary pouch to minimize further skin breakdown from incontinence. Pt is well endowed and unable to place urinary pouch. Ok to improvise with Fecal pouch to contain incontinence. Fecal pouch in place and attached to drainage bag. DAILY ESTIMATED NEEDS: Needs based on Cardiac, wound 88kg abw 25-35 kcals/kg 0795-6794 total kcals 1.25-1.5 g protein/kg 110-132 g total protein Fluid per MD, on lasix NUTRITION DIAGNOSIS: Increased kcal and pro needs r/t wound healing as evidenced by w/ full thickness scrotal wound, refer to full wound care eval. 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 Wounds are resolving.(#1)Wound at base of Scrotum is superficial with re-epithelialization. NO exudate noted. Edges are adherent to base of wound(L)1.5cm x (W)0.9cm. #2 Wound R testicle (proximally)is resolving. Base of wound is superficial with re-epithelialization.(L)1cm x (W)0.4cm. (#3)Wound R testicle(distally) resolving . Base of wound is superficial, pink with re-epithelialization. edges are adherent to base of wound.(L)1cm x (W)1cm. Small callused area at cleft noted(L)1cm x (W)0.5cm. Pt complained site is tender when minimally palpated or when he lies on his back.No erythema fluctuance or induration to surrounding sacrum.Pt confirmed Hx of having Pressure ulcer at source of callusing. R heel is boggy but blanchable. L Heel is boggy with non-blanchable erythema with delineated margins(L)4.5cm x (W)7.5cm.Tender when minimally palpated. Tx.Plan: Apply Moisture Barrier Paste to Scrotal Ulcers. Cover with Optifoam drsg. Change every 3 days and prn. Please cover Scrotal wounds with Optifoam to minimize friction. Apply Moisture Barrier Paste to Sacrum. Cover with Optifoam drsg. Change every 3 days and prn. Apply Cavilon Skin Barrier to Both heels. Cover each heel with Optifoam drsg. Change every 7 days and prn. Reposition at least every 2hours or as tolerated. Off-load heels with Pillow. (4) PNA (pneumonia) (5) Elevated troponin (6) UTI (lower urinary tract infection) (7) Acute exacerbation of CHF (congestive heart failure) (8) UTI (lower urinary tract infection) (9) Atrial fibrillation (10) CHF (congestive heart failure) (11) Orthopnea (12) Dyspnea on exertion (13) Swelling of lower extremity Assessment & Plan: not moving much breakdown noted edema stable nutritional optimization (14) Generalized ischemic cerebrovascular disease (15) acute onset left [place] pulsy. (16) Hemoptysis (17) Stroke (18) COPD exacerbation (19) Acute exacerbation of CHF (congestive heart failure) (20) Epistaxis Erlin Kearns Jul 17, 2020 10:08
--- NOTE | 2020-07-17 13:47 | NUR ---
[employer] NOTES SPOKE WITH VICTORIANO FROM [facility], HOSPITAL BED READY FOR DELIVERY, HOWEVER IS NOT ANSWERING CALL FOR DELIVERY. PLACED A CALL TO JAIR PT'S , MESSAGE LEFT TIMES TWO. PLACED A CALL TO CRAIG PT'S DAUGHTER, MADE AWARE THAT MICHAELOR HES BEEN TRYING TO DELIVER THE BED SINCE YESTERDAY. CRAIG OK'ED DELIVERY AND WILL BE HOME FOR DELIVERY. PLACED A CALL TO MICHAELOR PROVIDED CRAIG'S NUMBER FOR DELIVERY. WILL FOLLOW UP WITH DELIVERY.
--- NOTE | 2020-07-17 15:22 | General Progress Note ---
Subjective ROS Limited/Unobtainable: No Constitutional: Reports: malaise, weakness HEENT: Reports: no symptoms Cardiovascular: Reports: edema Respiratory: Reports: cough, shortness of breath Gastrointestinal/Abdominal: Reports: no symptoms Genitourinary: Reports: no symptoms Neurologic/Psychiatric: Reports: no symptoms Endocrine: Reports: no symptoms Hematologic/Lymphatic: Reports: anemia Allergies: Coded Allergies: No Known Allergies (Verified , 01/23/09) All Systems: reviewed and negative except above Subjective no events. stable . h/h lower. no reports of bleeding. no fevers or chills LE edema improved. Objective Last 24 Hour Vital Signs Date Time Temp Pulse Resp B/P (MAP) Pulse Ox O2 Delivery O2 Flow Rate FiO2 07/17/20 12:14 97.3 76 20 119/55 (76) 97 07/17/20 12:00 60 07/17/20 12:00 97.3 76 20 119/56 (77) 97 07/17/20 09:00 Room Air 07/17/20 08:00 60 07/17/20 08:00 97.1 59 18 105/53 (70) 97 07/17/20 04:00 97.8 61 20 115/57 (76) 97 07/17/20 04:00 60 07/17/20 00:00 60 07/17/20 00:00 98.3 61 20 92/48 (63) 97 07/16/20 21:00 Room Air 07/16/20 20:00 60 07/16/20 20:00 98.0 62 20 107/51 (69) 98 07/16/20 16:00 96.6 93 19 141/61 (87) 96 07/16/20 16:00 60 Intake and Output 07/16/20 07/17/20 19:00 07:00 Intake Total 120 ml Balance 120 ml Intake Oral 120 ml # Voids 2 4 # Bowel Movements 1 Laboratory Tests 07/17/20 05:55: White Blood Count 6.7, Red Blood Count 2.92L, Hemoglobin 6.5*L, Hematocrit 23.5L , Mean Corpuscular Volume 80, Mean Corpuscular Hemoglobin 22.3L, Mean Corpuscular Hemoglobin Concent 27.7L, Red Cell Distribution Width 24.7H, Platelet Count 277, Mean Platelet Volume 5.4L, Neutrophils (%) (Auto) , Lymphocytes (%) (Auto) , Monocytes (%) (Auto) , Eosinophils (%) (Auto) , Basophils (%) (Auto) , Differential Total Cells Counted 100, Neutrophils % (Manual) 75, Lymphocytes % (Manual) 13L, Monocytes % (Manual) 5, Eosinophils % (Manual) 7H, Basophils % (Manual) 0, Band Neutrophils 0, Platelet Estimate Adequate, Platelet Morphology Normal, Polychromasia 1+, Hypochromasia 2+, Anisocytosis 3+, Schistocytes 1+, Sodium Level 139, Potassium Level 4.4, C hloride Level 103, Carbon Dioxide Level 31, Anion Gap 6, Blood Urea Nitrogen 34H , Creatinine 1.6H, Estimat Glomerular Filtration Rate 50.2, Glucose Level 85, Calcium Level 10.9H, Total Bilirubin 1.9H, Direct Bilirubin 1.2H, Aspartate Amino Transf (AST/SGOT) 28, Alanine Aminotransferase (ALT/SGPT) 12, Alkaline Phosphatase 79, Total Protein 7.0, Albumin 2.7L, Globulin 4.3, Albumin/Globulin Ratio 0.6L Height (Feet): 6 Height (Inches): 1.00 Weight (Pounds): 180 Objective General Appearance: WD/WN, alert, confused EENT: normal ENT inspection Neck: normal alignment, supple Cardiovascular: normal rate, regular rhythm Respiratory/Chest: chest wall non-tender, lungs clear, normal breath sounds, no respiratory distress, no accessory muscle use Abdomen: normal bowel sounds, non tender, soft, no organomegaly Edema: 3+ Pedal (L), 3+ Pedal (R) Edema: severe edema 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, alert, responsive Skin: normal pigmentation, warm/dry Assessment/Plan Problem List: (1) Acute exacerbation of CHF (congestive heart failure) (2) Swelling of lower extremity ICD Codes: M79.89 - Other specified soft tissue disorders SNOMED: 696274077, 171866815 (3) Orthopnea (4) CHF (congestive heart failure) ICD Codes: I50.9 - CHF (congestive heart failure) SNOMED: 75119348 (5) Atrial fibrillation ICD Codes: I48.91 - Atrial fibrillation SNOMED: 90376222 (6) Anemia ICD Codes: D64.9 - Anemia, unspecified SNOMED: 026221637 (7) Elevated troponin ICD Codes: R74.8 - Elevated troponin SNOMED: 670761863 Status: stable, progressing Assessment/Plan: po lasix Elevate legs turn q2 wound care Monitor renal function and lytes diuresis Continue Epogen and iron supplements monitor labs Monitor for bleeding ppi rx monitor labs EUS and paracentesis per GI colonoscopy when hgb >8 probably needs snf. prefers to take pt home with home health. not agreeable to snf pt/ot Sumit Hallman MD Jul 17, 2020 15:22
--- NOTE | 2020-07-17 17:58 | NUR ---
NURSE NOTES: The patient is alert and cooperative with his care but has poor po intake. He is capable of turning and repositioning him self and doesn't seem to be in any active distress at this time. Will continue to monitor as indicated
--- NOTE | 2020-07-17 19:12 | NUR ---
NURSE HAND-OFF REPORT: Important Events on Shift:alert and cooperative Patient Status: Diet: Pending Orders: Pending Results/Labs: Pending MD notification: Latest Vital Signs: Temperature 97.3 , Pulse 60 , B/P 126 /73 , Respiratory Rate 20 , O2 SAT 96 , Nasal Cannula, O2 Flow Rate 2.0 . Vital Sign Comment: EKG Rhythm: A-Paced Rhythm change?: N MD Notified?: N - MD Response: Latest [place]roe Fall Score: 50 Fall Risk: High Risk Safety Measures: Call light Within Reach, Bed Alarm Zone 1, Side Rails Side Rails x3, Bed position Low and Locked. Fall Precautions: Yellow Socks Yellow Gown Door Sign Patient Fall Education Report given to .
--- NOTE | 2020-07-17 19:39 | NUR ---
NURSE NOTES: received patient alert oriented resting comfortable in bed with no signs of distress. bed in low position. call evans within reach, will continue to monitor.
[2020-07-17] MEDS: HYDROcodone/Acetamin 5/325 tab ORAL PRN (20:38)
[2020-07-17] MEDS: Atorvastatin 20mg tab ORAL SCH (20:39)
[2020-07-17] MEDS: Iron Sucrose 100 MG in NS 55 ML IVPB SCH (20:39)
--- NOTE | 2020-07-17 21:05 | General Progress Note ---
Subjective Allergies: Coded Allergies: No Known Allergies (Verified , 01/23/09) Subjective no new complaints no abdominal complaints Hg lower today at 6.5 Objective Last 24 Hour Vital Signs Date Time Temp Pulse Resp B/P (MAP) Pulse Ox O2 Delivery O2 Flow Rate FiO2 07/17/20 16:00 60 07/17/20 16:00 97.3 79 20 126/73 (90) 96 07/17/20 12:14 97.3 76 20 119/55 (76) 97 07/17/20 12:00 60 07/17/20 12:00 97.3 76 20 119/56 (77) 97 07/17/20 09:00 Room Air 07/17/20 08:00 60 07/17/20 08:00 97.1 59 18 105/53 (70) 97 07/17/20 04:00 97.8 61 20 115/57 (76) 97 07/17/20 04:00 60 07/17/20 00:00 60 07/17/20 00:00 98.3 61 20 92/48 (63) 97 Intake and Output 07/16/20 07/17/20 19:00 07:00 Intake Total 120 ml Balance 120 ml Intake Oral 120 ml # Voids 2 4 # Bowel Movements 1 Laboratory Tests 07/17/20 05:55: White Blood Count 6.7, Red Blood Count 2.92L, Hemoglobin 6.5*L, Hematocrit 23.5L , Mean Corpuscular Volume 80, Mean Corpuscular Hemoglobin 22.3L, Mean Corpuscular Hemoglobin Concent 27.7L, Red Cell Distribution Width 24.7H, Platelet Count 277, Mean Platelet Volume 5.4L, Neutrophils (%) (Auto) , Lymphocytes (%) (Auto) , Monocytes (%) (Auto) , Eosinophils (%) (Auto) , Basophils (%) (Auto) , Differential Total Cells Counted 100, Neutrophils % (Manual) 75, Lymphocytes % (Manual) 13L, Monocytes % (Manual) 5, Eosinophils % (Manual) 7H, Basophils % (Manual) 0, Band Neutrophils 0, Platelet Estimate Adequate, Platelet Morphology Normal, Polychromasia 1+, Hypochromasia 2+, Anisocytosis 3+, Schistocytes 1+, Sodium Level 139, Potassium Level 4.4, Chloride Level 103, Carbon Dioxide Level 31, Anion Gap 6, Blood Urea Nitrogen 34H, Creatinine 1.6H, Estimat Glomerular Filtration Rate 50.2, Glucose Level 85, Calcium Level 10.9H, Total Bilirubin 1.9H, Direct Bilirubin 1.2H, Aspartate Amino Transf (AST/SGOT) 28, Alanine Aminotransferase (ALT/SGPT) 12, Alkaline Phosphatase 79, Total Protein 7.0, Albumin 2.7L, Globulin 4.3, Albumin/Globulin Ratio 0.6L Height (Feet): 6 Height (Inches): 1.00 Weight (Pounds): 180 Objective WDWN NCAT supple CTA RRR abd soft NT, but distended trace edema Assessment/Plan Status: stable, progressing Assessment/Plan: Assessment - Iron deficiency anemia - negative EGD - unable to order capsule endoscopy - SBFT normal - worsening H&H despite FE and EPO concerning - Jehovah, declines transfusion - lower abdominal TTP, ? etiology - improved - New Ascites - ? due to (R) sided CHF - r/o malignancy - will consider paracentesis once H&H higher - Elevated Bilirubin - ? due to passive congestion - biliary ductal dilation, r/o downstream obstruction - Cannot order MRCP due to pacer --> will need EUS - Check CEA and CA 19-9 - pending - b/l edema and anasarca - azotemia - improved - CHF - COPD - CHF Recommendations - EPO - IV Iron - re check stool Fe - PPI - f/u CEA and CA 19-9 - Pending studies to consider: - colonoscopy - EUS - paracentesis Jacob Deleon MD Jul 17, 2020 21:05
--- NOTE | 2020-07-17 21:52 | Cardiology Progress Note ---
Subjective DATE OF SERVICE: Jul 17, 2020 PATIENTS KAREN WAS DISCONT'D BY PHARMACY WITHOUT NOTIFYING ANY MD OF EXPIRATION; I resumed it yesterday after this was discovered. EGD completed 07/11/20 without complication; no bleeding source found. Small bowel series (07/15/20) normal. No CP. No SOB in bedbound state or with limited mobilization. No N/V/D or pain. Appetite fair. Hemoglobin remains below 7gm/dl; its back to 6.5 gm/dl today; no signs of GI blood loss. Needs almost total assist with care. Objective Last 24 Hour Vital Signs Date Time Temp Pulse Resp B/P (MAP) Pulse Ox O2 Delivery O2 Flow Rate FiO2 07/17/20 20:00 97.8 66 20 122/55 (77) 98 07/17/20 20:00 65 07/17/20 16:00 60 07/17/20 16:00 97.3 79 20 126/73 (90) 96 07/17/20 12:14 97.3 76 20 119/55 (76) 97 07/17/20 12:00 60 07/17/20 12:00 97.3 76 20 119/56 (77) 97 07/17/20 09:00 Room Air 07/17/20 08:00 60 07/17/20 08:00 97.1 59 18 105/53 (70) 97 07/17/20 04:00 97.8 61 20 115/57 (76) 97 07/17/20 04:00 60 07/17/20 00:00 60 07/17/20 00:00 98.3 61 20 92/48 (63) 97 HEENT: normal ENT inspection RHYTHM: Afib, other - demand Ventric pacing LUNGS: diminished breath sounds CARDIAC: normal rate, normal S1 and S2, irregularly irregular, systolic murmur - 1/6 apical systolic murmur ABDOMEN: normal bowel sounds EXTREMITIES: normal range of motion, +3 edema Laboratory Tests Test 07/17/20 05:55 White Blood Count 6.7 K/UL (4.8-10.8) Red Blood Count 2.92 M/UL (4.70-6.10) L Hemoglobin 6.5 G/DL (14.2-18.0) *L Hematocrit 23.5 % (42.0-52.0) L Mean Corpuscular Volume 80 FL (80-99) Mean Corpuscular Hemoglobin 22.3 PG (27.0-31.0) L Mean Corpuscular Hemoglobin Concent 27.7 G/DL (32.0-36.0) L Red Cell Distribution Width 24.7 % (11.6-14.8) H Platelet Count 277 K/UL (150-450) Mean Platelet Volume 5.4 FL (6.5-10.1) L Neutrophils (%) (Auto) % (45.0-75.0) Lymphocytes (%) (Auto) % (20.0-45.0) Monocytes (%) (Auto) % (1.0-10.0) Eosinophils (%) (Auto) % (0.0-3.0) Basophils (%) (Auto) % (0.0-2.0) Differential Total Cells Counted 100 Neutrophils % (Manual) 75 % (45-75) Lymphocytes % (Manual) 13 % (20-45) L Monocytes % (Manual) 5 % (1-10) Eosinophils % (Manual) 7 % (0-3) H Basophils % (Manual) 0 % (0-2) Band Neutrophils 0 % (0-8) Platelet Estimate Adequate Platelet Morphology Normal Polychromasia 1+ Hypochromasia 2+ Anisocytosis 3+ Schistocytes 1+ Sodium Level 139 MMOL/L (136-145) Potassium Level 4.4 MMOL/L (3.5-5.1) Chloride Level 103 MMOL/L (98-107) Carbon Dioxide Level 31 MMOL/L (21-32) Anion Gap 6 mmol/L (5-15) Blood Urea Nitrogen 34 mg/dL (7-18) H Creatinine 1.6 MG/DL (0.55-1.30) H Estimat Glomerular Filtration Rate 50.2 mL/min (>60) Glucose Level 85 MG/DL (74-106) Calcium Level 10.9 MG/DL (8.5-10.1) H Total Bilirubin 1.9 MG/DL (0.2-1.0) H Direct Bilirubin 1.2 MG/DL (0.0-0.3) H Aspartate Amino Transf (AST/SGOT) 28 U/L (15-37) Alanine Aminotransferase (ALT/SGPT) 12 U/L (12-78) Alkaline Phosphatase 79 U/L (46-116) Total Protein 7.0 G/DL (6.4-8.2) Albumin 2.7 G/DL (3.4-5.0) L Globulin 4.3 g/dL Albumin/Globulin Ratio 0.6 (1.0-2.7) L Assessment/Plan Assessment/Plan Severe anemia with iron deficiency GI bleed Jehovahs witness Ac/chr diastolic CHF now compensated PAFib Pacemaker Hx thoracic aorta repair Elev LFT's may be due to passive congestion COPD Conjunctivitis Abd pain Ac/chr renal failure - improved Orthostatic risk Hypomagnesemia Venofer needs to be continued. Tumor markers pending (CEA/Ca19-9) Continue hydrocodone prn for back pain and CROSS Diuresis adjustment based on clinical status. O2 suppl IV iron and sq EPO Titrate anti-failure rx - decrease for low range BP. No aspirin or anticoag rx; off NSAID's Topical abx IV magnesium repl and oral potassium rx as needed Will need to arrange hospital bed and other assist before can manage at home. Per GI, defer colonscopy until hb above 8. Yvan Encarnacion MD Jul 17, 2020 21:52
[2020-07-18] VITALS: BP 105/56
[2020-07-18 04:00] VITALS: BP 114/54
--- NOTE | 2020-07-18 06:34 | NUR ---
NURSE HAND-OFF REPORT: Important Events on Shift:[] Patient Status: [] Diet: [] Pending Orders: [] Pending Results/Labs:[] Pending MD notification:[] Latest Vital Signs: Temperature 97.7 , Pulse 60 , B/P 114 /54 , Respiratory Rate 20 , O2 SAT 96 , Nasal Cannula, O2 Flow Rate 2.0 . Vital Sign Comment: [] EKG Rhythm: A-Paced Rhythm change?: N MD Notified?: N - MD Response: Latest Munroe Fall Score: 50 Fall Risk: High Risk Safety Measures: Call light Within Reach, Bed Alarm Zone 1, Side Rails Side Rails x3, Bed position Low and Locked. Fall Precautions: Yellow Socks Yellow Gown Door Sign Patient Fall Education Report given to [].
--- NOTE | 2020-07-18 06:43 | General Progress Note ---
Subjective ROS Limited/Unobtainable: No Constitutional: Reports: malaise, weakness HEENT: Reports: no symptoms Cardiovascular: Reports: no symptoms Respiratory: Reports: cough Gastrointestinal/Abdominal: Reports: no symptoms Genitourinary: Reports: no symptoms Neurologic/Psychiatric: Reports: pre-existing deficit Endocrine: Reports: no symptoms Hematologic/Lymphatic: Reports: no symptoms Allergies: Coded Allergies: No Known Allergies (Verified , 01/23/09) All Systems: reviewed and negative except above Subjective no complaints. sleepy. answers simple questions and follows commands. remains on iron adn high dose epo every other day. no reports of bleeding. Objective Last 24 Hour Vital Signs Date Time Temp Pulse Resp B/P (MAP) Pulse Ox O2 Delivery O2 Flow Rate FiO2 07/18/20 04:00 97.7 62 20 114/54 (74) 96 07/18/20 04:00 60 07/18/20 00:00 97.9 61 20 105/56 (72) 98 07/18/20 00:00 60 07/17/20 21:00 Room Air 07/17/20 20:00 97.8 66 20 122/55 (77) 98 07/17/20 20:00 65 07/17/20 16:00 60 07/17/20 16:00 97.3 79 20 126/73 (90) 96 07/17/20 12:14 97.3 76 20 119/55 (76) 97 07/17/20 12:00 60 07/17/20 12:00 97.3 76 20 119/56 (77) 97 07/17/20 09:00 Room Air 07/17/20 08:00 60 07/17/20 08:00 97.1 59 18 105/53 (70) 97 Intake and Output 07/17/20 07/18/20 19:00 07:00 Intake Total 480 ml 120 ml Balance 480 ml 120 ml Intake Oral 480 ml 120 ml # Voids 1 2 # Bowel Movements 1 1 Height (Feet): 6 Height (Inches): 1.00 Weight (Pounds): 180 Objective General Appearance: WD/WN, alert, confused EENT: normal ENT inspection Neck: normal alignment, supple Cardiovascular: normal rate, regular rhythm Respiratory/Chest: chest wall non-tender, lungs clear, normal breath sounds, no respiratory distress, no accessory muscle use Abdomen: normal bowel sounds, non tender, soft, no organomegaly Edema: 3+ Pedal (L), 3+ Pedal (R) Edema: severe edema Neurologic: vp revenue cycle II-XII 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, alert, responsive Skin: normal pigmentation, warm/dry Assessment/Plan Problem List: (1) Acute exacerbation of CHF (congestive heart failure) (2) Swelling of lower extremity ICD Codes: M79.89 - Other specified soft tissue disorders SNOMED: 128579652, 508090946 (3) Orthopnea (4) CHF (congestive heart failure) ICD Codes: I50.9 - CHF (congestive heart failure) SNOMED: 10119256 (5) Atrial fibrillation ICD Codes: I48.91 - Atrial fibrillation SNOMED: 16196011 (6) Anemia ICD Codes: D64.9 - Anemia, unspecified SNOMED: 298481135 (7) Elevated troponin ICD Codes: R74.8 - Elevated troponin SNOMED: 389717700 Status: stable, progressing Assessment/Plan: cont iron replacement and high dose epo qod monitor h/h monitor for bleeding PPI rx b12 level elevated legs turn q2 pt/ot po lasix amio colonsocopy when Hgb better possible EUS and paracentesis Sumit Hallman MD Jul 18, 2020 06:43
--- NOTE | 2020-07-18 07:05 | NUR ---
NURSE NOTES: Hand-off report received by Travis Monet RN. Patient in stable condition, alert and oriented x3, breathing even and unlabored on room air, bed in lowest and locked position, call light within reach, side rails upx2, bed alarm on. Inspected patient for bleeding, and no s/s of bleeding noted.
[2020-07-18 07:34] LABS: HEMATOCRIT 24.2 % (42.0-52.0); MEAN CORPUSCULAR VOLUME 81 FL (80-99); PLATELET COUNT 296 K/UL (150-450); RED BLOOD COUNT 2.97 M/UL (4.70-6.10); RED CELL DISTRIBUTION WIDTH 24.2 % (11.6-14.8); WHITE BLOOD COUNT 8.3 K/UL (4.8-10.8)
[2020-07-18 07:35] LABS: ALBUMIN 2.7 G/DL (3.4-5.0); ALBUMIN/GLOBULIN RATIO 0.6 (1.0-2.7); BILIRUBIN,TOTAL 1.9 MG/DL (0.2-1.0); CALCIUM 10.9 MG/DL (8.5-10.1); CREATININE 1.6 MG/DL (0.55-1.30); POTASSIUM 4.1 MMOL/L (3.5-5.1)
[2020-07-18 07:36] LABS: BILIRUBIN,DIRECT 1.2 MG/DL (0.0-0.3)
[2020-07-18 07:39] LABS: HEMOGLOBIN 6.7 G/DL (14.2-18.0)
[2020-07-18 08:00] VITALS: BP 110/52
[2020-07-18] MEDS: Ascorbic Acid 500mg tab ORAL SCH ×2 (08:45→16:37)
[2020-07-18] MEDS: Amiodarone 200mg tab ORAL SCH (08:45)
[2020-07-18] MEDS: Furosemide 40mg tab ORAL SCH (08:45)
[2020-07-18] MEDS: Tamsulosin 0.4mg cap ORAL SCH (08:45)
[2020-07-18] MEDS: Spironolactone 25mg tab ORAL SCH (08:59)
--- NOTE | 2020-07-18 10:00 | NUR ---
NURSE NOTES: Patient cleaned, optifoam reinforced, no BM for stool collection available.
--- NOTE | 2020-07-18 10:00 | NUR ---
NURSE NOTES: PT got the patient to stand up, no acute distress noted and patient in bed safe now, stable condition.
--- NOTE | 2020-07-18 10:21 | NUR ---
RD ASSESSMENT & RECOMMENDATIONS SEE CARE ACTIVITY FOR COMPLETE ASSESSMENT DAILY ESTIMATED NEEDS: Needs based on Cardiac, wound 88kg abw 25-35 kcals/kg 7463-6113 total kcals 1.25-1.5 g protein/kg 110-132 g total protein Fluid per MD, on lasix NUTRITION DIAGNOSIS: Increased kcal and pro needs r/t wound healing as evidenced by w/ full thickness scrotal wound, refer to full wound care eval. CURRENT DIET:CARDIAC PO DIET RECOMMENDATIONS: Liberalized Regular diet/ texture as tolerated w/ variable po intake ENTERAL NUTRITION RECOMMENDATIONS: Non oral feed if part of POC w/ continued poor po intake ADDITIONAL RECOMMENDATIONS: 1) CALIBRATED BED SCALE wt 2) On lasix and aldactone, monitor lytes daily 3) Ensure Enlive TID w/ meals 4) WATER REGULATOR AND VALVE REPAIRER eval for appropriate texture 5) WOUND CARE: continue MVI and Vit C KELLEY BID added to tray .
--- NOTE | 2020-07-18 10:39 | Surgery Progress Note ---
Surgery Progress Note Subjective Additional Comments no acute events comfortable no n/v/f/c h/h noted gi input noted Objective Last 24 Hour Vital Signs Date Time Temp Pulse Resp B/P (MAP) Pulse Ox O2 Delivery O2 Flow Rate FiO2 07/18/20 08:00 97.7 61 18 110/52 (71) 95 07/18/20 04:00 97.7 62 20 114/54 (74) 96 07/18/20 04:00 60 07/18/20 00:00 97.9 61 20 105/56 (72) 98 07/18/20 00:00 60 07/17/20 21:00 Room Air 07/17/20 20:00 97.8 66 20 122/55 (77) 98 07/17/20 20:00 65 07/17/20 16:00 60 07/17/20 16:00 97.3 79 20 126/73 (90) 96 07/17/20 12:14 97.3 76 20 119/55 (76) 97 07/17/20 12:00 60 07/17/20 12:00 97.3 76 20 119/56 (77) 97 I&O Intake and Output 07/17/20 07/18/20 19:00 07:00 Intake Total 480 ml 120 ml Balance 480 ml 120 ml Intake Oral 480 ml 120 ml # Voids 1 2 # Bowel Movements 1 1 Dressing: saturated Cardiovascular: RSR Respiratory: decreased breath sounds Abdomen: soft, non-tender, present bowel sounds, non-distended Extremities: no tenderness, no cyanosis Laboratory Tests Test 07/18/20 06:58 White Blood Count 8.3 K/UL (4.8-10.8) Red Blood Count 2.97 M/UL (4.70-6.10) L Hemoglobin 6.7 G/DL (14.2-18.0) *L Hematocrit 24.2 % (42.0-52.0) L Mean Corpuscular Volume 81 FL (80-99) Mean Corpuscular Hemoglobin 22.7 PG (27.0-31.0) L Mean Corpuscular Hemoglobin Concent 27.9 G/DL (32.0-36.0) L Red Cell Distribution Width 24.2 % (11.6-14.8) H Platelet Count 296 K/UL (150-450) Mean Platelet Volume 7.4 FL (6.5-10.1) Neutrophils (%) (Auto) % (45.0-75.0) Lymphocytes (%) (Auto) % (20.0-45.0) Monocytes (%) (Auto) % (1.0-10.0) Eosinophils (%) (Auto) % (0.0-3.0) Basophils (%) (Auto) % (0.0-2.0) Differential Total Cells Counted 100 Neutrophils % (Manual) 75 % (45-75) Lymphocytes % (Manual) 21 % (20-45) Monocytes % (Manual) 2 % (1-10) Eosinophils % (Manual) 2 % (0-3) Basophils % (Manual) 0 % (0-2) Band Neutrophils 0 % (0-8) Platelet Estimate Adequate Platelet Morphology Normal Polychromasia 1+ Hypochromasia 2+ Anisocytosis 3+ Acanthocytes Occasional Schistocytes 1+ Sodium Level 141 MMOL/L (136-145) Potassium Level 4.1 MMOL/L (3.5-5.1) Chloride Level 105 MMOL/L (98-107) Carbon Dioxide Level 30 MMOL/L (21-32) Anion Gap 6 mmol/L (5-15) Blood Urea Nitrogen 31 mg/dL (7-18) H Creatinine 1.6 MG/DL (0.55-1.30) H Estimat Glomerular Filtration Rate 50.2 mL/min (>60) Glucose Level 83 MG/DL (74-106) Calcium Level 10.9 MG/DL (8.5-10.1) H Total Bilirubin 1.9 MG/DL (0.2-1.0) H Direct Bilirubin 1.2 MG/DL (0.0-0.3) H Aspartate Amino Transf (AST/SGOT) 29 U/L (15-37) Alanine Aminotransferase (ALT/SGPT) 13 U/L (12-78) Alkaline Phosphatase 81 U/L (46-116) Total Protein 6.9 G/DL (6.4-8.2) Albumin 2.7 G/DL (3.4-5.0) L Globulin 4.2 g/dL Albumin/Globulin Ratio 0.6 (1.0-2.7) L Vitamin B12 Level 888 PG/ML (193-986) Thyroid Stimulating Hormone (TSH) 0.397 uiU/mL (0.358-3.740) Plan Problems: (1) Anemia (2) Chronic obstructive pulmonary disease (3) Sacral decubitus ulcer Assessment & Plan: Pt presented on admission with multiple Pressure Injuries. Sacral Pressure Injury resolving(L)1.5cm x (W)0.5cm. Base of wound is pink with maceration. Multiple Ulcerations at base of Scrotum . Wounds are resolving(#1) Full thickness Pressure Injury base of wound resolving. Base of wound is 50% mihai 50% pink epithelial(L)2cm x (W)1.2cm. Edges are adherent to base of wound. NO exudate noted. (#2)Wound R testicle resolving. [place] epithelial at base of wound. No exudate no macrina (L)2cm x (W)1.2cm. (#3)Wound that is proximally to above documented wounds is also resolving(L)1cm x (W)1cm. Base of wound is 25% mihai ,75% surrounding pink epithelial.. L Heel has resolved. Heel is boggy but blanchable and non-tender when palpated R heel has resolved. R heel is boggy but blanchable and non-tender when palpated. Pt is frequently and heavily incontinent of Bladder. place urinary pouch to minimize further skin breakdown from incontinence. Pt is well endowed and unable to place urinary pouch. Ok to improvise with Fecal pouch to contain incontinence. Fecal pouch in place and attached to drainage bag. DAILY ESTIMATED NEEDS: Needs based on Cardiac, wound 88kg abw 25-35 kcals/kg 0486-4337 total kcals 1.25-1.5 g protein/kg 110-132 g total protein Fluid per MD, on lasix NUTRITION DIAGNOSIS: Increased kcal and pro needs r/t wound healing as evidenced by w/ full thickness scrotal wound, refer to full wound care eval. CURRENT DIET:CARDIAC PO DIET RECOMMENDATIONS: Liberalized Regular diet/ texture as tolerated w/ variable po intake ADDITIONAL RECOMMENDATIONS: 1) CALIBRATED BED SCALE wt 2) On lasix and aldactone, monitor lytes daily 3) Ensure Enlive TID w/ meals 4) DIRECTOR OF HUMAN RESOURCES eval for appropriate texture 5) WOUND CARE: continue MVI and Vit C KELLEY BID added to tray Pt presented on admission with multiple Scrotal Pressure injuries. Wounds are r esolving.(#1)Wound at base of Scrotum is superficial with re-epithelialization. NO exudate noted. Edges are adherent to base of wound(L)1.5cm x (W)0.9cm. #2 Wound R testicle (proximally)is resolving. Base of wound is superficial with re-epithelialization.(L)1cm x (W)0.4cm. (#3)Wound R testicle(distally) resolving . Base of wound is superficial, pink with re-epithelialization. edges are adherent to base of wound.(L)1cm x (W)1cm. Small callused area at lanedn cleft noted(L)1cm x (W)0.5cm. Pt complained site is tender when minimally palpated or when he lies on his back.No erythema fluctuance or induration to surrounding sacrum.Pt confirmed Hx of having Pressure ulcer at source of callusing. R heel is boggy but blanchable. L Heel is boggy with non-blanchable erythema with delineated margins(L)4.5cm x (W)7.5cm.Tender when minimally palpated. Tx.Plan: Apply Moisture Barrier Paste to Scrotal Ulcers. Cover with Optifoam drsg. Change every 3 days and prn. Please cover Scrotal wounds with Optifoam to minimize friction. Apply Moisture Barrier Paste to Sacrum. Cover with Optifoam drsg. Change every 3 days and prn. Apply Cavilon Skin Barrier to Both heels. Cover each heel with Optifoam drsg. Change every 7 days and prn. Reposition at least every 2hours or as tolerated. Off-load heels with Pillow. 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 (16) Hemoptysis (17) Stroke (18) COPD exacerbation (19) Acute exacerbation of CHF (congestive heart failure) (20) Epistaxis Erlin Kearns Jul 18, 2020 10:39
[2020-07-18 12:00] VITALS: BP 111/45
--- NOTE | 2020-07-18 13:35 | Cardiology Progress Note ---
Subjective DATE OF SERVICE: Jul 18, 2020 Slight increase in hemoglobin today. EGD completed 07/11/20 without complication; no bleeding source found. Small bowel series (07/15/20) normal. No CP. No SOB in bedbound state or with limited mobilization. No N/V/D or pain. Appetite fair. Hemoglobin remains below 7gm/dl; its back to 6.7 gm/dl today; no signs of GI blood loss. Needs almost total assist with care. Objective Last 24 Hour Vital Signs Date Time Temp Pulse Resp B/P (MAP) Pulse Ox O2 Delivery O2 Flow Rate FiO2 07/18/20 12:00 60 07/18/20 09:00 Room Air 07/18/20 08:00 60 07/18/20 08:00 97.7 61 18 110/52 (71) 95 07/18/20 04:00 97.7 62 20 114/54 (74) 96 07/18/20 04:00 60 07/18/20 00:00 97.9 61 20 105/56 (72) 98 07/18/20 00:00 60 07/17/20 21:00 Room Air 07/17/20 20:00 97.8 66 20 122/55 (77) 98 07/17/20 20:00 65 07/17/20 16:00 60 07/17/20 16:00 97.3 79 20 126/73 (90) 96 HEENT: normal ENT inspection RHYTHM: Afib, other - demand Ventric pacing LUNGS: diminished breath sounds CARDIAC: normal rate, normal S1 and S2, irregularly irregular, systolic murmur - 1/6 apical systolic murmur ABDOMEN: normal bowel sounds EXTREMITIES: normal range of motion, +3 edema Laboratory Tests Test 07/18/20 06:58 White Blood Count 8.3 K/UL (4.8-10.8) Red Blood Count 2.97 M/UL (4.70-6.10) L Hemoglobin 6.7 G/DL (14.2-18.0) *L Hematocrit 24.2 % (42.0-52.0) L Mean Corpuscular Volume 81 FL (80-99) Mean Corpuscular Hemoglobin 22.7 PG (27.0-31.0) L Mean Corpuscular Hemoglobin Concent 27.9 G/DL (32.0-36.0) L Red Cell Distribution Width 24.2 % (11.6-14.8) H Platelet Count 296 K/UL (150-450) Mean Platelet Volume 7.4 FL (6.5-10.1) Neutrophils (%) (Auto) % (45.0-75.0) Lymphocytes (%) (Auto) % (20.0-45.0) Monocytes (%) (Auto) % (1.0-10.0) Eosinophils (%) (Auto) % (0.0-3.0) Basophils (%) (Auto) % (0.0-2.0) Differential Total Cells Counted 100 Neutrophils % (Manual) 75 % (45-75) Lymphocytes % (Manual) 21 % (20-45) Monocytes % (Manual) 2 % (1-10) Eosinophils % (Manual) 2 % (0-3) Basophils % (Manual) 0 % (0-2) Band Neutrophils 0 % (0-8) Platelet Estimate Adequate Platelet Morphology Normal Polychromasia 1+ Hypochromasia 2+ Anisocytosis 3+ Acanthocytes Occasional Schistocytes 1+ Sodium Level 141 MMOL/L (136-145) Potassium Level 4.1 MMOL/L (3.5-5.1) Chloride Level 105 MMOL/L (98-107) Carbon Dioxide Level 30 MMOL/L (21-32) Anion Gap 6 mmol/L (5-15) Blood Urea Nitrogen 31 mg/dL (7-18) H Creatinine 1.6 MG/DL (0.55-1.30) H Estimat Glomerular Filtration Rate 50.2 mL/min (>60) Glucose Level 83 MG/DL (74-106) Calcium Level 10.9 MG/DL (8.5-10.1) H Total Bilirubin 1.9 MG/DL (0.2-1.0) H Direct Bilirubin 1.2 MG/DL (0.0-0.3) H Aspartate Amino Transf (AST/SGOT) 29 U/L (15-37) Alanine Aminotransferase (ALT/SGPT) 13 U/L (12-78) Alkaline Phosphatase 81 U/L (46-116) Total Protein 6.9 G/DL (6.4-8.2) Albumin 2.7 G/DL (3.4-5.0) L Globulin 4.2 g/dL Albumin/Globulin Ratio 0.6 (1.0-2.7) L Vitamin B12 Level 888 PG/ML (193-986) Thyroid Stimulating Hormone (TSH) 0.397 uiU/mL (0.358-3.740) Assessment/Plan Assessment/Plan Severe anemia with iron deficiency GI bleed Jehovahs witness Ac/chr diastolic CHF now compensated PAFib Pacemaker Hx thoracic aorta repair Elev LFT's may be due to passive congestion COPD Conjunctivitis Abd pain Ac/chr renal failure - improved Orthostatic risk Hypomagnesemia Venofer needs to be continued - expect improving hb next few days. Tumor markers pending (CEA/Ca19-9) Continue hydrocodone prn for back pain and CROSS Diuresis adjustment based on clinical status. O2 suppl IV iron and sq EPO Titrate anti-failure rx - decrease for low range BP. No aspirin or anticoag rx; off NSAID's Topical abx IV magnesium repl and oral potassium rx as needed Will need to arrange hospital bed and other assist before can manage at home. Per GI, defer colonscopy until hb above 8. Yvan Encarnacion MD Jul 18, 2020 13:35
[2020-07-18 16:00] VITALS: BP 107/47
--- NOTE | 2020-07-18 16:02 | NUR ---
NURSE NOTES: OB stool collected.
[2020-07-18] MEDS: HYDROcodone/Acetamin 5/325 tab ORAL PRN (16:37)
--- NOTE | 2020-07-18 19:05 | NUR ---
NURSE HAND-OFF REPORT: Important Events on Shift: OB stool collected, a-paced, no s/s bleeding, optifoam on scrotum and bony prominences reinforced Patient Status: stable condition, full code, v/s WNL Diet: cardiac Pending Orders: [] Pending Results/Labs:[] Pending MD notification:[] Latest Vital Signs: Temperature 98.0 , Pulse 60 , B/P 107 /47 , Respiratory Rate 20 , O2 SAT 98 , Nasal Cannula, O2 Flow Rate 2.0 . Vital Sign Comment: [] EKG Rhythm: A-Paced Rhythm change?: N MD Notified?: N - MD Response: Latest Munroe Fall Score: 50 Fall Risk: High Risk Safety Measures: Call light Within Reach, Bed Alarm Zone 1, Side Rails Side Rails x3, Bed position Low and Locked. Fall Precautions: Yellow Socks Yellow Gown Door Sign Patient Fall Education Report given to Kayla Cintron RN.
[2020-07-18 20:00] VITALS: BP 108/46
--- NOTE | 2020-07-18 20:31 | General Progress Note ---
Subjective Allergies: Coded Allergies: No Known Allergies (Verified , 01/23/09) Subjective no new complaints no abdominal complaints Hg slightly better, at 6.7 Objective Last 24 Hour Vital Signs Date Time Temp Pulse Resp B/P (MAP) Pulse Ox O2 Delivery O2 Flow Rate FiO2 07/18/20 17:07 98.0 07/18/20 16:00 60 07/18/20 16:00 98.0 61 20 107/47 (67) 98 07/18/20 12:00 60 07/18/20 12:00 97.9 64 20 111/45 (67) 98 07/18/20 09:00 Room Air 07/18/20 08:00 60 07/18/20 08:00 97.7 61 18 110/52 (71) 95 07/18/20 04:00 97.7 62 20 114/54 (74) 96 07/18/20 04:00 60 07/18/20 00:00 97.9 61 20 105/56 (72) 98 07/18/20 00:00 60 07/17/20 21:00 Room Air Intake and Output 07/17/20 07/18/20 19:00 07:00 Intake Total 480 ml 120 ml Balance 480 ml 120 ml Intake Oral 480 ml 120 ml # Voids 1 2 # Bowel Movements 1 1 Laboratory Tests 07/18/20 06:58: White Blood Count 8.3, Red Blood Count 2.97L, Hemoglobin 6.7*L, Hematocrit 24.2L , Mean Corpuscular Volume 81, Mean Corpuscular Hemoglobin 22.7L, Mean Corpuscular Hemoglobin Concent 27.9L, Red Cell Distribution Width 24.2H, Platelet Count 296, Mean Platelet Volume 7.4, Neutrophils (%) (Auto) , Lymphocytes (%) (Auto) , Monocytes (%) (Auto) , Eosinophils (%) (Auto) , Basophils (%) (Auto) , Differential Total Cells Counted 100, Neutrophils % (Manual) 75, Lymphocytes % (Manual) 21, Monocytes % (Manual) 2, Eosinophils % (Manual) 2, Basophils % (Manual) 0, Band Neutrophils 0, Platelet Estimate Adequate, Platelet Morphology Normal, Polychromasia 1+, Hypochromasia 2+, Anisocytosis 3+, Acanthocytes Occasional, Schistocytes 1+, Sodium Level 141, Potassium Level 4.1, Chloride Level 105, Carbon Dioxide Level 30, Anion Gap 6, Blood Urea Nitrogen 31H, Creatinine 1.6H, Estimat Glomerular Filtration Rate 50.2, Glucose Level 83, Calcium Level 10.9H, Total Bilirubin 1.9H, Direct Bilirubin 1.2H, Aspartate Amino Transf (AST/SGOT) 29, Alanine Aminotransferase (ALT/SGPT) 13, Alkaline Phosphatase 81, Total Protein 6.9, Albumin 2.7L, Globulin 4.2, Albumin/Globulin Ratio 0.6L, Vitamin B12 Level 888, Thyroid Stimulating Hormone (TSH) 0.397 07/18/20 16:00: Stool Occult Blood [Pending] Height (Feet): 6 Height (Inches): 1.00 Weight (Pounds): 180 Objective WDWN NCAT supple CTA RRR abd soft NT, but distended trace edema Assessment/Plan Status: stable, progressing Assessment/Plan: Assessment - Iron deficiency anemia - negative EGD - unable to order capsule endoscopy - SBFT normal - worsening H&H despite FE and EPO concerning - Jehovah, declines transfusion - lower abdominal TTP, ? etiology - resolved - New Ascites - ? due to (R) sided CHF - r/o malignancy - will consider paracentesis once H&H higher - Elevated Bilirubin - ? due to passive congestion - biliary ductal dilation, r/o downstream obstruction - Cannot order MRCP due to pacer --> will need EUS - Check CEA and CA 19-9 - pending - b/l edema and anasarca - azotemia - improved - CHF - COPD - CHF Recommendations - EPO - IV Iron - re check stool OB - PPI - f/u CEA and CA 19-9 - Pending studies to consider: - colonoscopy - EUS - once Hg 7.0 - paracentesis Jacob Deleon MD Jul 18, 2020 20:31
[2020-07-18] MEDS: Iron Sucrose 100 MG in NS 55 ML IVPB SCH (20:56)
[2020-07-18] MEDS: Atorvastatin 20mg tab ORAL SCH (20:57)
[2020-07-18] MEDS: Epoetin Alfa-EPBX (NON ESRD)10,000 unit/ml vial SUBQ SCH (20:57)
[2020-07-19] VITALS: BP 112/47
[2020-07-19 04:00] VITALS: BP 123/55
--- NOTE | 2020-07-19 05:28 | NUR ---
NURSE NOTES: called said she find a hospital bed for patient.
--- NOTE | 2020-07-19 07:12 | NUR ---
NURSE NOTES: Received report from JENNIFER Garza. Pt is A/O x3-4 and verbally responsive. No SOB or acute distress noted. No pain noted. classroom monitor shows NSR @ 70. No bleeding noted upon inspection. Bed in lowest position and locked with side rails x 2 and bed alarm on. Call light placed within reach. Will continue plan of care.
[2020-07-19 08:00] VITALS: BP 98/45
--- NOTE | 2020-07-19 08:20 | General Progress Note ---
Subjective ROS Limited/Unobtainable: No Constitutional: Reports: malaise, weakness HEENT: Reports: no symptoms Cardiovascular: Reports: no symptoms Respiratory: Reports: cough Gastrointestinal/Abdominal: Reports: no symptoms Genitourinary: Reports: no symptoms Neurologic/Psychiatric: Reports: no symptoms Endocrine: Reports: no symptoms Hematologic/Lymphatic: Reports: anemia Allergies: Coded Allergies: No Known Allergies (Verified , 01/23/09) All Systems: reviewed and negative except above Subjective no new complaints. up in bed eating breakfast. no reports of bleeding. no chest pain or sob. labs pending today. remains on high dose epo and iron replacement rx Objective Last 24 Hour Vital Signs Date Time Temp Pulse Resp B/P (MAP) Pulse Ox O2 Delivery O2 Flow Rate FiO2 07/19/20 04:00 66 07/19/20 04:00 96.2 65 18 123/55 (77) 98 07/19/20 00:00 97.8 60 18 112/47 (68) 98 07/19/20 00:00 60 07/18/20 21:00 Room Air 07/18/20 20:00 98.7 60 18 108/46 (66) 98 07/18/20 20:00 61 07/18/20 17:07 98.0 07/18/20 16:00 60 07/18/20 16:00 98.0 61 20 107/47 (67) 98 07/18/20 12:00 60 07/18/20 12:00 97.9 64 20 111/45 (67) 98 07/18/20 09:00 Room Air Intake and Output 07/18/20 07/19/20 19:00 07:00 Intake Total 440 ml 500 ml Balance 440 ml 500 ml Intake Oral 440 ml 500 ml # Voids 3 4 # Bowel Movements 2 Laboratory Tests 07/18/20 16:00: Stool Occult Blood Negative 07/19/20 08:00: White Blood Count [Pending], Red Blood Count [Pending], Hemoglobin [Pending], Hematocrit [Pending], Mean Corpuscular Volume [Pending], Mean Corpuscular Hemoglobin [Pending], Mean Corpuscular Hemoglobin Concent [Pending], Red Cell Distribution Width [Pending], Platelet Count [Pending], Mean Platelet Volume [Pending], Neutrophils (%) (Auto) [Pending], Lymphocytes (%) (Auto) [Pending], Monocytes (%) (Auto) [Pending], Eosinophils (%) (Auto) [Pending], Basophils (%) (Auto) [Pending], Sodium Level [Pending], Potassium Level [Pending], Chloride Level [Pending], Carbon Dioxide Level [Pending], Blood Urea Nitrogen [Pending], Creatinine [Pending], Estimat Glomerular Filtration Rate [Pending], Glucose Level [Pending], Calcium Level [Pending], Total Bilirubin [Pending], Aspartate Amino Transf (AST/SGOT) [Pending], Alanine Aminotransferase (ALT/SGPT) [Pending], Alkaline Phosphatase [Pending], Total Protein [Pending], Albumin [Pending], Globulin [Pending] Height (Feet): 6 Height (Inches): 1.00 Weight (Pounds): 180 Objective General Appearance: WD/WN, alert, confused EENT: normal ENT inspection Neck: normal alignment, supple Cardiovascular: normal rate, regular rhythm Respiratory/Chest: chest wall non-tender, lungs clear, normal breath sounds, no respiratory distress, no accessory muscle use Abdomen: normal bowel sounds, non tender, soft, no organomegaly Edema: 3+ Pedal (L), 3+ Pedal (R) Edema: severe edema Neurologic: emergency room specialist II-XII 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, alert, responsive Skin: normal pigmentation, warm/dry Assessment/Plan Problem List: (1) Acute exacerbation of CHF (congestive heart failure) (2) Swelling of lower extremity ICD Codes: M79.89 - Other specified soft tissue disorders SNOMED: 448555897, 574348932 (3) Orthopnea (4) CHF (congestive heart failure) ICD Codes: I50.9 - CHF (congestive heart failure) SNOMED: 76789063 (5) Atrial fibrillation ICD Codes: I48.91 - Atrial fibrillation SNOMED: 97024647 (6) Anemia ICD Codes: D64.9 - Anemia, unspecified SNOMED: 573392997 (7) Elevated troponin ICD Codes: R74.8 - Elevated troponin SNOMED: 778342798 Status: stable, progressing Assessment/Plan: cont iron replacement and high dose epo qod monitor h/h monitor for bleeding PPI rx b12 level elevated legs turn q2 pt/ot po lasix amio colonsocopy when Hgb better possible EUS and paracentesis Sumit Hallman MD Jul 19, 2020 08:20
[2020-07-19] MEDS: Spironolactone 25mg tab ORAL SCH (08:21)
[2020-07-19] MEDS: Amiodarone 200mg tab ORAL SCH (08:21)
[2020-07-19] MEDS: Ascorbic Acid 500mg tab ORAL SCH ×2 (08:21→17:19)
[2020-07-19] MEDS: Tamsulosin 0.4mg cap ORAL SCH (08:21)
[2020-07-19] MEDS: Furosemide 40mg tab ORAL SCH (08:22)
[2020-07-19 08:29] LABS: HEMATOCRIT 25.5 % (42.0-52.0); HEMOGLOBIN 7.1 G/DL (14.2-18.0); MEAN CORPUSCULAR VOLUME 81 FL (80-99); PLATELET COUNT 285 K/UL (150-450); RED BLOOD COUNT 3.13 M/UL (4.70-6.10); RED CELL DISTRIBUTION WIDTH 24.6 % (11.6-14.8); WHITE BLOOD COUNT 9.1 K/UL (4.8-10.8)
--- NOTE | 2020-07-19 08:30 | General Progress Note ---
Subjective ROS Limited/Unobtainable: Yes Allergies: Coded Allergies: No Known Allergies (Verified , 01/23/09) Objective Last 24 Hour Vital Signs Date Time Temp Pulse Resp B/P (MAP) Pulse Ox O2 Delivery O2 Flow Rate FiO2 07/19/20 04:00 66 07/19/20 04:00 96.2 65 18 123/55 (77) 98 07/19/20 00:00 97.8 60 18 112/47 (68) 98 07/19/20 00:00 60 07/18/20 21:00 Room Air 07/18/20 20:00 98.7 60 18 108/46 (66) 98 07/18/20 20:00 61 07/18/20 17:07 98.0 07/18/20 16:00 60 07/18/20 16:00 98.0 61 20 107/47 (67) 98 07/18/20 12:00 60 07/18/20 12:00 97.9 64 20 111/45 (67) 98 07/18/20 09:00 Room Air Intake and Output 07/18/20 07/19/20 19:00 07:00 Intake Total 440 ml 500 ml Balance 440 ml 500 ml Intake Oral 440 ml 500 ml # Voids 3 4 # Bowel Movements 2 Laboratory Tests 07/18/20 16:00: Stool Occult Blood Negative 07/19/20 08:00: White Blood Count [Pending], Red Blood Count [Pending], Hemoglobin [Pending], Hematocrit [Pending], Mean Corpuscular Volume [Pending], Mean Corpuscular Hemoglobin [Pending], Mean Corpuscular Hemoglobin Concent [Pending], Red Cell Distribution Width [Pending], Platelet Count [Pending], Mean Platelet Volume [Pending], Neutrophils (%) (Auto) [Pending], Lymphocytes (%) (Auto) [Pending], Monocytes (%) (Auto) [Pending], Eosinophils (%) (Auto) [Pending], Basophils (%) (Auto) [Pending], Sodium Level [Pending], Potassium Level [Pending], Chloride Level [Pending], Carbon Dioxide Level [Pending], Blood Urea Nitrogen [Pending], Creatinine [Pending], Estimat Glomerular Filtration Rate [Pending], Glucose L evel [Pending], Calcium Level [Pending], Total Bilirubin [Pending], Aspartate Amino Transf (AST/SGOT) [Pending], Alanine Aminotransferase (ALT/SGPT) [Pending], Alkaline Phosphatase [Pending], Total Protein [Pending], Albumin [Pending], Globulin [Pending] Height (Feet): 6 Height (Inches): 1.00 Weight (Pounds): 180 General Appearance: no apparent distress EENT: normal ENT inspection Neck: supple Cardiovascular: normal rate Respiratory/Chest: decreased breath sounds Abdomen: hypoactive bowel sounds Extremities: non-tender Assessment/Plan Status: stable, progressing Assessment/Plan: Assessment/Plan Status: stable, progressing Assessment/Plan: Assessment - Iron deficiency anemia - negative EGD - unable to order capsule endoscopy - SBFT normal - worsening H&H despite FE and EPO concerning - Jehovah, declines transfusion - lower abdominal TTP, ? etiology - resolved - New Ascites - ? due to (R) sided CHF - r/o malignancy - will consider paracentesis once H&H higher - Elevated Bilirubin - ? due to passive congestion - biliary ductal dilation, r/o downstream obstruction - Cannot order MRCP due to pacer --> will need EUS - Check CEA and CA 19-9 - pending - b/l edema and anasarca - azotemia - improved - CHF - COPD - CHF Recommendations - nPO - IV Iron - re check stool OB - PPI - f/u CEA and CA 19-9 - Pending studies to consider: - colonoscopy - EUS - once Hg 7.0 - paracentesis Dhaval Campbell MD Jul 19, 2020 08:30
[2020-07-19 08:58] LABS: ALBUMIN 2.9 G/DL (3.4-5.0); ALBUMIN/GLOBULIN RATIO 0.6 (1.0-2.7); CREATININE 1.8 MG/DL (0.55-1.30); POTASSIUM 4.1 MMOL/L (3.5-5.1)
[2020-07-19 09:01] LABS: BILIRUBIN,DIRECT 1.2 MG/DL (0.0-0.3)
--- NOTE | 2020-07-19 10:26 | Surgery Progress Note ---
Surgery Progress Note Subjective Additional Comments no acute events comfortable labs noted exam stable Objective Last 24 Hour Vital Signs Date Time Temp Pulse Resp B/P (MAP) Pulse Ox O2 Delivery O2 Flow Rate FiO2 07/19/20 09:00 Room Air 07/19/20 08:00 97.7 71 20 98/45 (62) 97 07/19/20 08:00 69 07/19/20 04:00 66 07/19/20 04:00 96.2 65 18 123/55 (77) 98 07/19/20 00:00 97.8 60 18 112/47 (68) 98 07/19/20 00:00 60 07/18/20 21:00 Room Air 07/18/20 20:00 98.7 60 18 108/46 (66) 98 07/18/20 20:00 61 07/18/20 17:07 98.0 07/18/20 16:00 60 07/18/20 16:00 98.0 61 20 107/47 (67) 98 07/18/20 12:00 60 07/18/20 12:00 97.9 64 20 111/45 (67) 98 I&O Intake and Output 07/18/20 07/19/20 19:00 07:00 Intake Total 440 ml 500 ml Balance 440 ml 500 ml Intake Oral 440 ml 500 ml # Voids 3 4 # Bowel Movements 2 Dressing: saturated Cardiovascular: RSR Respiratory: decreased breath sounds Abdomen: soft, flat, non-tender, present bowel sounds, non-distended Extremities: no edema, no tenderness, no cyanosis Laboratory Tests Test 07/18/20 16:00 07/19/20 08:00 Stool Occult Blood Negative (NEGATIVE) White Blood Count 9.1 K/UL (4.8-10.8) Red Blood Count 3.13 M/UL (4.70-6.10) L Hemoglobin 7.1 G/DL (14.2-18.0) L Hematocrit 25.5 % (42.0-52.0) L Mean Corpuscular Volume 81 FL (80-99) Mean Corpuscular Hemoglobin 22.6 PG (27.0-31.0) L Mean Corpuscular Hemoglobin Concent 27.7 G/DL (32.0-36.0) L Red Cell Distribution Width 24.6 % (11.6-14.8) H Platelet Count 285 K/UL (150-450) Mean Platelet Volume 5.6 FL (6.5-10.1) L Neutrophils (%) (Auto) % (45.0-75.0) Lymphocytes (%) (Auto) % (20.0-45.0) Monocytes (%) (Auto) % (1.0-10.0) Eosinophils (%) (Auto) % (0.0-3.0) Basophils (%) (Auto) % (0.0-2.0) Neutrophils % (Manual) Pending Lymphocytes % (Manual) Pending Platelet Estimate Pending Platelet Morphology Pending Sodium Level 139 MMOL/L (136-145) Potassium Level 4.1 MMOL/L (3.5-5.1) Chloride Level 104 MMOL/L (98-107) Carbon Dioxide Level 29 MMOL/L (21-32) Anion Gap 6 mmol/L (5-15) Blood Urea Nitrogen 32 mg/dL (7-18) H Creatinine 1.8 MG/DL (0.55-1.30) H Estimat Glomerular Filtration Rate 43.8 mL/min (>60) Glucose Level 130 MG/DL (74-106) H Calcium Level 11.0 MG/DL (8.5-10.1) H Total Bilirubin 2.0 MG/DL (0.2-1.0) H Direct Bilirubin 1.2 MG/DL (0.0-0.3) H Aspartate Amino Transf (AST/SGOT) 31 U/L (15-37) Alanine Aminotransferase (ALT/SGPT) 15 U/L (12-78) Alkaline Phosphatase 86 U/L (46-116) Total Protein 7.5 G/DL (6.4-8.2) Albumin 2.9 G/DL (3.4-5.0) L Globulin 4.6 g/dL Albumin/Globulin Ratio 0.6 (1.0-2.7) L Plan Problems: (1) Anemia (2) Chronic obstructive pulmonary disease (3) Sacral decubitus ulcer Assessment & Plan: Pt presented on admission with multiple Pressure Injuries. Sacral Pressure Injury resolving(L)1.5cm x (W)0.5cm. Base of wound is pink with maceration. Multiple Ulcerations at base of Scrotum . Wounds are resolving(#1) Full thickness Pressure Injury base of wound resolving. Base of wound is 50% mihai 50% pink epithelial(L)2cm x (W)1.2cm. Edges are adherent to base of wound. NO exudate noted. (#2)Wound R testicle resolving. [place] epithelial at base of wound. No exudate noted (L)2cm x (W)1.2cm. (#3)Wound that is proximally to above documented wounds is also resolving(L)1cm x (W)1cm. Base of wound is 25% mihai ,75% surrounding pink epithelial.. L Heel has resolved. Heel is boggy but blanchable and non-tender when palpated R heel has resolved. R heel is boggy but blanchable and non-tender when palpated. Pt is frequently and heavily incontinent of Bladder. place urinary pouch to minimize further skin breakdown from incontinence. Pt is well endowed and unable to place urinary pouch. Ok to improvise with Fecal pouch to contain incontinence. Fecal pouch in place and attached to drainage bag. DAILY ESTIMATED NEEDS: Needs based on Cardiac, wound 88kg abw 25-35 kcals/kg [id number] total kcals 1.25-1.5 g protein/kg 110-132 g total protein Fluid per MD, on lasix NUTRITION DIAGNOSIS: Increased kcal and pro needs r/t wound healing as evidenced by w/ full thickness scrotal wound, refer to full wound care eval. CURRENT DIET:CARDIAC PO DIET RECOMMENDATIONS: Liberalized Regular diet/ texture as tolerated w/ variable po intake ADDITIONAL RECOMMENDATIONS: 1) CALIBRATED BED SCALE wt 2) On lasix and aldactone, monitor lytes daily 3) Ensure Enlive TID w/ meals 4) PRECONSTRUCTION MANAGER eval for appropriate texture 5) WOUND CARE: continue MVI and Vit C KELLEY BID added to tray Pt presented on admission with multiple Scrotal Pressure injuries. Wounds are resolving.(#1)Wound at base of Scrotum is superficial with re-epithelialization. NO exudate noted. Edges are adherent to base of wound(L)1.5cm x (W)0.9cm. #2 Wound R testicle (proximally)is resolving. Base of wound is superficial with re-epithelialization.(L)1cm x (W)0.4cm. (#3)Wound R testicle(distally) resolving . Base of wound is superficial, pink with re-epithelialization. edges are adherent to base of wound.(L)1cm x (W)1cm. Small callused area at landen cleft noted(L)1cm x (W)0.5cm. Pt complained site is tender when minimally palpated or when he lies on his back.No erythema fluctuance or induration to surrounding sacrum.Pt confirmed Hx of having Pressure ulcer at source of callusing. R heel is boggy but blanchable. L Heel is boggy with non-blanchable erythema with delineated margins(L)4.5cm x (W)7.5cm.Tender when minimally palpated. Tx.Plan: Apply Moisture Barrier Paste to Scrotal Ulcers. Cover with Optifoam drsg. Change every 3 days and prn. Please cover Scrotal wounds with Optifoam to minimize friction. Apply Moisture Barrier Paste to Sacrum. Cover with Optifoam drsg. Change every 3 days and prn. Apply Cavilon Skin Barrier to Both heels. Cover each heel with Optifoam drsg. Change every 7 days and prn. Reposition at least every 2hours or as tolerated. Off-load heels with Pillow. 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 (16) Hemoptysis (17) Stroke (18) COPD exacerbation (19) Acute exacerbation of CHF (congestive heart failure) (20) Epistaxis Erlin Keanrs Jul 19, 2020 10:26
--- NOTE | 2020-07-19 10:45 | NUR ---
NURSE NOTES: Notified Dr. Hallman regarding pt and pt's wanting him to go home and doctor stated that his HGB has to be 7.5 or greater to be able to to discharged. Dr Hallman informed the and nurse informed the pt.
[2020-07-19 12:00] VITALS: BP 99/48
--- NOTE | 2020-07-19 14:19 | NUR ---
PT Note Attempted to see patient for treatment but patient refused. "I just want to go home." RN was notified for patient's refusal.
--- NOTE | 2020-07-19 15:41 | NUR ---
NURSE NOTES: Attempted to reposition the pt but pt refused letting me not to touch him. He wants to go home now. Informed him he was getting better from the medications that was given and that his blood needed to get a little better for him to be able to go home. Also informed him that everything would be waiting for him and that he had a hospital bed that he would at home.
[2020-07-19 16:00] VITALS: BP 100/50
--- NOTE | 2020-07-19 16:10 | Cardiology Progress Note ---
Subjective DATE OF SERVICE: Jul 19, 2020 Stool OB now negative. Slight increase in hemoglobin again today - venofer was resumed 2 days ago. EGD completed 07/11/20 without complication; no bleeding source found. Small bowel series (07/15/20) normal. No CP. No SOB in bedbound state or with limited mobilization. No N/V/D or pain. Appetite fair. Hemoglobin above 7gm/dl - likely due to resumed Venofer. Needs almost total assist with care. Objective Last 24 Hour Vital Signs Date Time Temp Pulse Resp B/P (MAP) Pulse Ox O2 Delivery O2 Flow Rate FiO2 07/19/20 12:00 97.8 72 20 99/48 (65) 98 07/19/20 12:00 65 07/19/20 09:00 Room Air 07/19/20 08:00 97.7 71 20 98/45 (62) 97 07/19/20 08:00 69 07/19/20 04:00 66 07/19/20 04:00 96.2 65 18 123/55 (77) 98 07/19/20 00:00 97.8 60 18 112/47 (68) 98 07/19/20 00:00 60 07/18/20 21:00 Room Air 07/18/20 20:00 98.7 60 18 108/46 (66) 98 07/18/20 20:00 61 07/18/20 17:07 98.0 HEENT: normal ENT inspection RHYTHM: Afib, other - demand Ventric pacing LUNGS: diminished breath sounds CARDIAC: normal rate, normal S1 and S2, irregularly irregular, systolic murmur - 1/6 apical systolic murmur ABDOMEN: normal bowel sounds EXTREMITIES: normal range of motion, +3 edema Laboratory Tests Test 07/19/20 08:00 White Blood Count 9.1 K/UL (4.8-10.8) Red Blood Count 3.13 M/UL (4.70-6.10) L Hemoglobin 7.1 G/DL (14.2-18.0) L Hematocrit 25.5 % (42.0-52.0) L Mean Corpuscular Volume 81 FL (80-99) Mean Corpuscular Hemoglobin 22.6 PG (27.0-31.0) L Mean Corpuscular Hemoglobin Concent 27.7 G/DL (32.0-36.0) L Red Cell Distribution Width 24.6 % (11.6-14.8) H Platelet Count 285 K/UL (150-450) Mean Platelet Volume 5.6 FL (6.5-10.1) L Neutrophils (%) (Auto) % (45.0-75.0) Lymphocytes (%) (Auto) % (20.0-45.0) Monocytes (%) (Auto) % (1.0-10.0) Eosinophils (%) (Auto) % (0.0-3.0) Basophils (%) (Auto) % (0.0-2.0) Differential Total Cells Counted 100 Neutrophils % (Manual) 78 % (45-75) H Lymphocytes % (Manual) 14 % (20-45) L Monocytes % (Manual) 6 % (1-10) Eosinophils % (Manual) 2 % (0-3) Basophils % (Manual) 0 % (0-2) Band Neutrophils 0 % (0-8) Platelet Estimate Adequate Platelet Morphology Normal Polychromasia 1+ Hypochromasia 2+ Anisocytosis 3+ Schistocytes 1+ Sodium Level 139 MMOL/L (136-145) Potassium Level 4.1 MMOL/L (3.5-5.1) Chloride Level 104 MMOL/L (98-107) Carbon Dioxide Level 29 MMOL/L (21-32) Anion Gap 6 mmol/L (5-15) Blood Urea Nitrogen 32 mg/dL (7-18) H Creatinine 1.8 MG/DL (0.55-1.30) H Estimat Glomerular Filtration Rate 43.8 mL/min (>60) Glucose Level 130 MG/DL (74-106) H Calcium Level 11.0 MG/DL (8.5-10.1) H Total Bilirubin 2.0 MG/DL (0.2-1.0) H Direct Bilirubin 1.2 MG/DL (0.0-0.3) H Aspartate Amino Transf (AST/SGOT) 31 U/L (15-37) Alanine Aminotransferase (ALT/SGPT) 15 U/L (12-78) Alkaline Phosphatase 86 U/L (46-116) Total Protein 7.5 G/DL (6.4-8.2) Albumin 2.9 G/DL (3.4-5.0) L Globulin 4.6 g/dL Albumin/Globulin Ratio 0.6 (1.0-2.7) L Assessment/Plan Assessment/Plan Severe anemia with iron deficiency GI bleed Jehovahs witness Ac/chr diastolic CHF now compensated PAFib Pacemaker Hx thoracic aorta repair Elev LFT's may be due to passive congestion COPD Conjunctivitis Abd pain Ac/chr renal failure - improved Orthostatic risk Hypomagnesemia Cannot discharge yet; needs more IV iron. Venofer needs to be continued - expect cont'd improvement in hb next few days. Tumor markers pending (CEA/Ca19-9) Continue hydrocodone prn for back pain and CROSS Diuresis adjustment based on clinical status. O2 suppl IV iron and sq EPO Titrate anti-failure rx - decrease for low range BP. No aspirin or anticoag rx; off NSAID's Topical abx IV magnesium repl and oral potassium rx as needed Will need to arrange hospital bed and other assist before can manage at home. Per GI, defer colonscopy until hb above 8. Yvan Encarnacion MD Jul 19, 2020 16:10
[2020-07-19] MEDS: HYDROcodone/Acetamin 5/325 tab ORAL PRN (16:35)
--- NOTE | 2020-07-19 18:39 | NUR ---
NURSE HAND-OFF REPORT: Important Events on Shift: Pt HGB is 7.1 but needs to be 7.5 for discharge. Pt continues to drink Ensure but eating less than <25%. Patient Status: Stable Diet: Cardiac Mech Soft Pending Orders: Pending Results/Labs: Pending MD notification: Latest Vital Signs: Temperature 97.6 , Pulse 77 , B/P 100 /50 , Respiratory Rate 18 , O2 SAT 98 , Nasal Cannula, O2 Flow Rate 2.0 . Vital Sign Comment: EKG Rhythm: A-Paced Rhythm change?: N MD Notified?: N - MD Response: Latest [place] Fall Score: 50 Fall Risk: High Risk Safety Measures: Call light Within Reach, Bed Alarm Zone 1, Side Rails Side Rails x3, Bed position Low and Locked. Fall Precautions: Yellow Socks Yellow Gown Door Sign Patient Fall Education Report given to
[2020-07-19 20:00] VITALS: BP 108/54
[2020-07-19] MEDS: Iron Sucrose 100 MG in NS 55 ML IVPB SCH (20:45)
[2020-07-19] MEDS: Atorvastatin 20mg tab ORAL SCH (20:45)
[2020-07-20] VITALS: BP 101/45
--- NOTE | 2020-07-20 01:25 | NUR ---
NURSE NOTES: Pt is A/O x3-4 and verbally responsive. No SOB or acute distress noted. No pain noted. media monitor shows NSR @ 70. No bleeding noted upon inspection. Bed in lowest position and locked with side rails x 2 and bed alarm on. Call light placed within reach. Will continue plan of care.
[2020-07-20 04:00] VITALS: BP 104/51
--- NOTE | 2020-07-20 07:29 | NUR ---
NURSE NOTES: Patient received from JENNIFER Garza. Patient seen in bed in high fowlers position eating breakfast with no acute signs of distress AAOx4 and no SOB. The patient has a L FA 20G Iv that is clean, patent and intact and saline locked. The patient is on P200 mattress to reduce skin breakdown. The patients bed is in lowest position, locked, side rails x2, bed alarm in zone 1 and call light within reach.
[2020-07-20 08:00] VITALS: BP 98/52
[2020-07-20] MEDS: Spironolactone 25mg tab ORAL SCH (08:24)
[2020-07-20] MEDS: Amiodarone 200mg tab ORAL SCH (08:24)
[2020-07-20] MEDS: Tamsulosin 0.4mg cap ORAL SCH (08:25)
[2020-07-20] MEDS: Ascorbic Acid 500mg tab ORAL SCH ×2 (08:25→17:29)
[2020-07-20] MEDS: Furosemide 40mg tab ORAL SCH (08:26)
[2020-07-20] MEDS: HYDROcodone/Acetamin 5/325 tab ORAL PRN ×2 (09:26→17:35)
--- NOTE | 2020-07-20 09:31 | General Progress Note ---
Subjective ROS Limited/Unobtainable: No Allergies: Coded Allergies: No Known Allergies (Verified , 01/23/09) Objective Last 24 Hour Vital Signs Date Time Temp Pulse Resp B/P (MAP) Pulse Ox O2 Delivery O2 Flow Rate FiO2 07/20/20 04:00 60 07/20/20 04:00 98.3 64 18 104/51 (68) 98 07/20/20 00:00 61 07/20/20 00:00 98.1 61 18 101/45 (63) 98 07/19/20 21:00 Room Air 07/19/20 20:00 97.9 62 18 108/54 (72) 98 07/19/20 20:00 60 07/19/20 16:00 77 07/19/20 16:00 97.6 68 18 100/50 (67) 98 07/19/20 12:00 97.8 72 20 99/48 (65) 98 07/19/20 12:00 65 Intake and Output 07/19/20 07/20/20 19:00 07:00 Intake Total 240 ml 240 ml Balance 240 ml 240 ml Intake Oral 240 ml 240 ml # Voids 3 2 Height (Feet): 6 Height (Inches): 1.00 Weight (Pounds): 180 General Appearance: no apparent distress EENT: normal ENT inspection Neck: supple Cardiovascular: normal rate Respiratory/Chest: decreased breath sounds Abdomen: hypoactive bowel sounds Extremities: non-tender Assessment/Plan Status: stable, progressing Assessment/Plan: Assessment/Plan Status: stable, progressing Assessment/Plan: Assessment - Iron deficiency anemia - negative EGD - unable to order capsule endoscopy - SBFT normal - worsening H&H despite FE and EPO concerning - jocelyne Pimentel transfusion - lower abdominal TTP, ? etiology - resolved - New Ascites - ? due to (R) sided CHF - r/o malignancy - will consider paracentesis once H&H higher - Elevated Bilirubin - ? due to passive congestion - biliary ductal dilation, r/o downstream obstruction - Cannot order MRCP due to pacer --> will need EUS - Check CEA and CA 19-9 - pending - b/l edema and anasarca - azotemia - improved - CHF - COPD - CHF Recommendations - nPO - IV Iron - re check stool OB - PPI - f/u CEA and CA 19-9 - Pending studies to consider: - colonoscopy - EUS - once Hg 7.0 - paracentesis Dhaval Campbell MD Jul 20, 2020 09:31
--- NOTE | 2020-07-20 10:56 | Surgery Progress Note ---
Surgery Progress Note Subjective Additional Comments working with physical therapy no n/v Objective Last 24 Hour Vital Signs Date Time Temp Pulse Resp B/P (MAP) Pulse Ox O2 Delivery O2 Flow Rate FiO2 07/20/20 09:00 Room Air 07/20/20 08:00 97.7 68 20 98/52 (67) 96 07/20/20 08:00 66 07/20/20 04:00 60 07/20/20 04:00 98.3 64 18 104/51 (68) 98 07/20/20 00:00 61 07/20/20 00:00 98.1 61 18 101/45 (63) 98 07/19/20 21:00 Room Air 07/19/20 20:00 97.9 62 18 108/54 (72) 98 07/19/20 20:00 60 07/19/20 16:00 77 07/19/20 16:00 97.6 68 18 100/50 (67) 98 07/19/20 12:00 97.8 72 20 99/48 (65) 98 07/19/20 12:00 65 I&O Intake and Output 07/19/20 07/20/20 19:00 07:00 Intake Total 240 ml 240 ml Balance 240 ml 240 ml Intake Oral 240 ml 240 ml # Voids 3 2 Dressing: saturated Cardiovascular: RSR Respiratory: decreased breath sounds Abdomen: soft, flat, non-tender, present bowel sounds, non-distended Extremities: no edema, no tenderness, no cyanosis Plan Problems: (1) Anemia (2) Chronic obstructive pulmonary disease (3) Sacral decubitus ulcer Assessment & Plan: Pt presented on admission with multiple Pressure Injuries. Sacral Pressure Injury resolving(L)1.5cm x (W)0.5cm. Base of wound is pink with maceration. Multiple Ulcerations at base of Scrotum . Wounds are resolving(#1) Full thickness Pressure Injury base of wound resolving. Base of wound is 50% mihai 50% pink epithelial(L)2cm x (W)1.2cm. Edges are adherent to base of wound. NO exudate noted. (#2)Wound R testicle resolving. [place] epithelial at base of wound. No exudate noted (L)2cm x (W)1.2cm. (#3)Wound that is proximally to above documented wounds is also resolving(L)1cm x (W)1cm. Base of wound is 25% mihai ,75% surrounding pink epithelial.. L Heel has resolved. Heel is boggy but blanchable and non-tender when palpated R heel has resolved. R heel is boggy but blanchable and non-tender when palpated. Pt is frequently and heavily incontinent of Bladder. place urinary pouch to minimize further skin breakdown from incontinence. Pt is well endowed and unable to place urinary pouch. Ok to improvise with Fecal pouch to contain incontinence. Fecal pouch in place and attached to drainage bag. DAILY ESTIMATED NEEDS: Needs based on Cardiac, wound 88kg abw 25-35 kcals/kg 5871-6527 total kcals 1.25-1.5 g protein/kg 110-132 g total protein Fluid per MD, on lasix NUTRITION DIAGNOSIS: Increased kcal and pro needs r/t wound healing as evidenced by w/ full thickness scrotal wound, refer to full wound care eval. CURRENT DIET:CARDIAC PO DIET RECOMMENDATIONS: Liberalized Regular diet/ texture as tolerated w/ variable po intake ADDITIONAL RECOMMENDATIONS: 1) CALIBRATED BED SCALE wt 2) On lasix and aldactone, monitor lytes daily 3) Ensure Enlive TID w/ meals 4) NANOTECHNOLOGIST eval for appropriate texture 5) WOUND CARE: continue MVI and Vit C KELLEY BID added to tray Pt presented on admission with multiple Scrotal Pressure injuries. Wounds are resolving.(#1)Wound at base of Scrotum is superficial with re-epithelialization. NO exudate noted. Edges are adherent to base of wound(L)1.5cm x (W)0.9cm. #2 Wound R testicle (proximally)is resolving. Base of wound is superficial with re-epithelialization.(L)1cm x (W)0.4cm. (#3)Wound R testicle(distally) resolving . Base of wound is superficial, pink with re-epithelialization. edges are adherent to base of wound.(L)1cm x (W)1cm. Small callused area at cleft noted(L)1cm x (W)0.5cm. Pt complained site is tender when minimally palpated or when he lies on his back.No erythema fluctuance or induration to surrounding sacrum.Pt confirmed Hx of having Pressure ulcer at source of callusing. R heel is boggy but blanchable. L Heel is boggy with non-blanchable erythema with delineated margins(L)4.5cm x (W)7.5cm.Tender when minimally palpated. Tx.Plan: Apply Moisture Barrier Paste to Scrotal Ulcers. Cover with Optifoam drsg. Change every 3 days and prn. Please cover Scrotal wounds with Optifoam to minimize friction. Apply Moisture Barrier Paste to Sacrum. Cover with Optifoam drsg. Change every 3 days and prn. Apply Cavilon Skin Barrier to Both heels. Cover each heel with Optifoam drsg. Change every 7 days and prn. Reposition at least every 2hours or as tolerated. Off-load heels with Pillow. (4) PNA (pneumonia) (5) Elevated troponin (6) UTI (lower urinary tract infection) (7) Acute exacerbation of CHF (congestive heart failure) (8) UTI (lower urinary tract infection) (9) Atrial fibrillation (10) CHF (congestive heart failure) (11) Orthopnea (12) Dyspnea on exertion (13) Swelling of lower extremity Assessment & Plan: not moving much breakdown noted edema stable nutritional optimization (14) Generalized ischemic cerebrovascular disease (15) acute onset left [place] pulsy. (16) Hemoptysis (17) Stroke (18) COPD exacerbation (19) Acute exacerbation of CHF (congestive heart failure) (20) Epistaxis Erlin Kearns Jul 20, 2020 10:56
--- NOTE | 2020-07-20 11:18 | NUR ---
CASE MANAGEMENT:REVIEW 06/22/20 SI: SEVERE ANEMIA. EPISCOPALIAN 97.7 66 20 98/52 96% ON RA H/H-.06/09.5 IS: IV VENOFER QHS EPOETIN SQ QOD NORCO PO Q6HRS PRN LASIX PO QD MVI PO QD K-DUR PO QD ALDACTONE PO QD FLOMAX PO QD PROSCAR PO QD AMIODARONE PO QD PROTONIX PO QD : TELEMETRY STATUS DCP: FROM HOME Addendum: 07/20/20 at 1255 by MANJINDER CARTER LVN LVN ABOVE NOTE IS FOR 07/20/20
[2020-07-20 11:32] LABS: HEMATOCRIT 23.1 % (42.0-52.0); MEAN CORPUSCULAR VOLUME 81 FL (80-99); PLATELET COUNT 252 K/UL (150-450); RED BLOOD COUNT 2.85 M/UL (4.70-6.10); RED CELL DISTRIBUTION WIDTH 25.7 % (11.6-14.8); WHITE BLOOD COUNT 7.6 K/UL (4.8-10.8)
[2020-07-20 11:34] LABS: HEMOGLOBIN 6.5 G/DL (14.2-18.0)
--- NOTE | 2020-07-20 11:57 | General Progress Note ---
Subjective ROS Limited/Unobtainable: No Constitutional: Reports: malaise, weakness HEENT: Reports: no symptoms Cardiovascular: Reports: no symptoms Respiratory: Reports: cough, shortness of breath Gastrointestinal/Abdominal: Reports: no symptoms Genitourinary: Reports: no symptoms Neurologic/Psychiatric: Reports: no symptoms Endocrine: Reports: no symptoms Hematologic/Lymphatic: Reports: anemia Allergies: Coded Allergies: No Known Allergies (Verified , 01/23/09) All Systems: reviewed and negative except above Subjective no new complaints. up in bed eating breakfast. able to feed himself. no chest pain or sob. cbc lower today. no bleeding noted. remains on high dose epo and iron replacement rx Objective Last 24 Hour Vital Signs Date Time Temp Pulse Resp B/P (MAP) Pulse Ox O2 Delivery O2 Flow Rate FiO2 07/20/20 09:00 Room Air 07/20/20 08:00 97.7 68 20 98/52 (67) 96 07/20/20 08:00 66 07/20/20 04:00 60 07/20/20 04:00 98.3 64 18 104/51 (68) 98 07/20/20 00:00 61 07/20/20 00:00 98.1 61 18 101/45 (63) 98 07/19/20 21:00 Room Air 07/19/20 20:00 97.9 62 18 108/54 (72) 98 07/19/20 20:00 60 07/19/20 16:00 77 07/19/20 16:00 97.6 68 18 100/50 (67) 98 07/19/20 12:00 97.8 72 20 99/48 (65) 98 07/19/20 12:00 65 Intake and Output 07/19/20 07/20/20 19:00 07:00 Intake Total 240 ml 240 ml Balance 240 ml 240 ml Intake Oral 240 ml 240 ml # Voids 3 2 Laboratory Tests 07/20/20 11:20: White Blood Count 7.6, Red Blood Count 2.85L, Hemoglobin 6.5*L, Hematocrit 23.1L , Mean Corpuscular Volume 81, Mean Corpuscular Hemoglobin 22.9L, Mean Corpuscular Hemoglobin Concent 28.2L, Red Cell Distribution Width 25.7H, Platelet Count 252, Mean Platelet Volume 5.2L, Neutrophils (%) (Auto) , Lymphocytes (%) (Auto) , Monocytes (%) (Auto) , Eosinophils (%) (Auto) , Basophils (%) (Auto) , Neutrophils % (Manual) [Pending], Lymphocytes % (Manual) [Pending], Platelet Estimate [Pending], Platelet Morphology [Pending], Sodium Level [Pending], Potassium Level [Pending], Chloride Level [Pending], Carbon Dioxide Level [Pending], Blood Urea Nitrogen [Pending], Creatinine [Pending], Estimat Glomerular Filtration Rate [Pending], Glucose Level [Pending], Calcium Level [Pending] Height (Feet): 6 Height (Inches): 1.00 Weight (Pounds): 180 Objective General Appearance: WD/WN, alert, confused EENT: normal ENT inspection Neck: normal alignment, supple Cardiovascular: normal rate, regular rhythm Respiratory/Chest: chest wall non-tender, lungs clear, normal breath sounds, no respiratory distress, no accessory muscle use Abdomen: normal bowel sounds, non tender, soft, no organomegaly Edema: 3+ Pedal (L), 3+ Pedal (R) Edema: severe edema Neurologic: photographic editor II-XII 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, alert, responsive Skin: normal pigmentation, warm/dry Assessment/Plan Problem List: (1) Acute exacerbation of CHF (congestive heart failure) (2) Swelling of lower extremity ICD Codes: M79.89 - Other specified soft tissue disorders SNOMED: 108850230, 670348314 (3) Orthopnea (4) CHF (congestive heart failure) ICD Codes: I50.9 - CHF (congestive heart failure) SNOMED: 07373157 (5) Atrial fibrillation ICD Codes: I48.91 - Atrial fibrillation SNOMED: 22813133 (6) Anemia ICD Codes: D64.9 - Anemia, unspecified SNOMED: 710670741 (7) Elevated troponin ICD Codes: R74.8 - Elevated troponin SNOMED: 889728061 Status: stable, progressing Assessment/Plan: cont iron replacement and high dose epo qod- will increase monitor h/h monitor for bleeding PPI rx b12 levelm ok tfts nml elevated legs turn q2 pt/ot po lasix amio colonsocopy when Hgb better possible EUS and paracentesis Sumit Hallman MD Jul 20, 2020 11:57
[2020-07-20 12:00] VITALS: BP 110/50
[2020-07-20 12:09] LABS: BLOOD UREA NITROGEN 31 mg/dL (7-18); CALCIUM 10.8 MG/DL (8.5-10.1); CARBON DIOXIDE 28 MMOL/L (21-32); CREATININE 1.7 MG/DL (0.55-1.30)
[2020-07-20 12:39] LABS: CHLORIDE 104 MMOL/L (98-107); POTASSIUM 4.2 MMOL/L (3.5-5.1); SODIUM 138 MMOL/L (136-145)
--- NOTE | 2020-07-20 12:55 | NUR ---
CASE MANAGEMENT:REVIEW 07/20/20 SI: SEVERE ANEMIA. ROMAN CATHOLIC 97.7 66 20 98/52 96% ON RA H/H-.06/09.5 IS: IV VENOFER QHS EPOETIN SQ QOD NORCO PO Q6HRS PRN LASIX PO QD MVI PO QD K-DUR PO QD ALDACTONE PO QD FLOMAX PO QD PROSCAR PO QD AMIODARONE PO QD PROTONIX PO QD : TELEMETRY STATUS DCP: FROM HOME
[2020-07-20 16:00] VITALS: BP 91/51
--- NOTE | 2020-07-20 18:52 | NUR ---
NURSE HAND-OFF REPORT: Important Events on Shift:[No important events on shift] Patient Status: [Full code] Diet: [Cardiac diet] Pending Orders: [N.A] Pending Results/Labs:[N/A] Pending MD notification:[N/A] Latest Vital Signs: Temperature 97.2 , Pulse 60 , B/P 91 /51 , Respiratory Rate 20 , O2 SAT 98 , Nasal Cannula, O2 Flow Rate 2.0 . Vital Sign Comment: [] EKG Rhythm: A-Paced Rhythm change?: N MD Notified?: N - MD Response: Latest [place] Fall Score: 50 Fall Risk: High Risk Safety Measures: Call light Within Reach, Bed Alarm Zone 1, Side Rails Side Rails x3, Bed position Low and Locked. Fall Precautions: Yellow Socks Yellow Gown Door Sign Patient Fall Education Report given to [JENNIFER Cintron].
[2020-07-20 20:00] VITALS: BP 101/54
[2020-07-20] MEDS ORDERED: Epoetin Alfa-EPBX (NON ESRD) 2000 units/ml vial SUBQ SCH (21:00)
[2020-07-20] MEDS ORDERED: Epoetin Alfa-EPBX (NON ESRD)10,000 unit/ml vial SUBQ SCH (21:00)
[2020-07-20] MEDS: Atorvastatin 20mg tab ORAL SCH (22:01)
[2020-07-20] MEDS: Iron Sucrose 100 MG in NS 55 ML IVPB SCH (22:01)
[2020-07-21] VITALS: BP 104/50
--- NOTE | 2020-07-21 00:35 | Cardiology Progress Note ---
Subjective DATE OF SERVICE: Jul 20, 2020 Stool OB now negative. Hemoglobin dropped again today - venofer was resumed 3 days ago. EGD completed 07/11/20 without complication; no bleeding source found. Small bowel series (07/15/20) normal. No CP. No SOB in bedbound state or with limited mobilization. No N/V/D or pain. Appetite fair. Needs almost total assist with care. Objective Last 24 Hour Vital Signs Date Time Temp Pulse Resp B/P (MAP) Pulse Ox O2 Delivery O2 Flow Rate FiO2 07/20/20 21:00 Room Air 07/20/20 20:00 98.1 60 20 101/54 (70) 100 07/20/20 20:00 60 07/20/20 16:00 60 07/20/20 16:00 97.2 60 20 91/51 (64) 98 07/20/20 12:00 97.7 60 18 110/50 (70) 97 07/20/20 12:00 60 07/20/20 09:00 Room Air 07/20/20 08:00 97.7 68 20 98/52 (67) 96 07/20/20 08:00 66 07/20/20 04:00 60 07/20/20 04:00 98.3 64 18 104/51 (68) 98 HEENT: normal ENT inspection RHYTHM: Afib, other - demand Ventric pacing LUNGS: diminished breath sounds CARDIAC: normal rate, normal S1 and S2, irregularly irregular, systolic murmur - 1/6 apical systolic murmur ABDOMEN: normal bowel sounds EXTREMITIES: normal range of motion, +3 edema Laboratory Tests Test 07/20/20 11:20 White Blood Count 7.6 K/UL (4.8-10.8) Red Blood Count 2.85 M/UL (4.70-6.10) L Hemoglobin 6.5 G/DL (14.2-18.0) *L Hematocrit 23.1 % (42.0-52.0) L Mean Corpuscular Volume 81 FL (80-99) Mean Corpuscular Hemoglobin 22.9 PG (27.0-31.0) L Mean Corpuscular Hemoglobin Concent 28.2 G/DL (32.0-36.0) L Red Cell Distribution Width 25.7 % (11.6-14.8) H Platelet Count 252 K/UL (150-450) Mean Platelet Volume 5.2 FL (6.5-10.1) L Neutrophils (%) (Auto) % (45.0-75.0) Lymphocytes (%) (Auto) % (20.0-45.0) Monocytes (%) (Auto) % (1.0-10.0) Eosinophils (%) (Auto) % (0.0-3.0) Basophils (%) (Auto) % (0.0-2.0) Differential Total Cells Counted 100 Neutrophils % (Manual) 73 % (45-75) Lymphocytes % (Manual) 19 % (20-45) L Monocytes % (Manual) 3 % (1-10) Eosinophils % (Manual) 5 % (0-3) H Basophils % (Manual) 0 % (0-2) Band Neutrophils 0 % (0-8) Platelet Estimate Adequate Platelet Morphology Normal Polychromasia 2+ Hypochromasia 2+ Anisocytosis 3+ Schistocytes 1+ Sodium Level 138 MMOL/L (136-145) Potassium Level 4.2 MMOL/L (3.5-5.1) Chloride Level 104 MMOL/L (98-107) Carbon Dioxide Level 28 MMOL/L (21-32) Blood Urea Nitrogen 31 mg/dL (7-18) H Creatinine 1.7 MG/DL (0.55-1.30) H Estimat Glomerular Filtration Rate 46.8 mL/min (>60) Glucose Level 108 MG/DL (74-106) H Calcium Level 10.8 MG/DL (8.5-10.1) H Assessment/Plan Assessment/Plan Severe anemia with iron deficiency GI bleed Jehovahs witness Ac/chr diastolic CHF now compensated PAFib Pacemaker Hx thoracic aorta repair Elev LFT's may be due to passive congestion COPD Conjunctivitis Abd pain Ac/chr renal failure - improved Orthostatic risk Hypomagnesemia Cannot discharge yet; needs more IV iron. Venofer needs to be continued - expect cont'd improvement in hb next few days. Tumor markers pending (CEA/Ca19-9) Continue hydrocodone prn for back pain and CROSS Diuresis adjustment based on clinical status. O2 suppl IV iron and sq EPO Titrate anti-failure rx - decrease for low range BP. No aspirin or anticoag rx; off NSAID's Topical abx IV magnesium repl and oral potassium rx as needed Will need to arrange hospital bed and other assist before can manage at home. Per GI, defer colonscopy until hb above 8. Yvan Encranacion MD Jul 21, 2020 00:35
[2020-07-21 04:00] VITALS: BP 109/53
--- NOTE | 2020-07-21 05:00 | NUR ---
NURSE NOTES: Pt is A/O x3-4 and verbally responsive. No SOB or acute distress noted. No pain noted. quality assurance monitor body shows NSR @ 70. No bleeding noted upon inspection. Bed in lowest position and locked with side rails x 2 and bed alarm on. Call light placed within reach. Will continue plan of care.
--- NOTE | 2020-07-21 07:33 | NUR ---
NURSE NOTES: patient seen in bed in semifowlers position with no acute signs of distress and no complaints fo pain 0/10. The patient patient has a L FA 20G IV that is clean, patent intact and saline locked. The patient is on room air with oxygen saturation within normal limits. The patient is on a P200 mattress to decrease skin breakdown. the patients bed is in lowest position, locked, side rails x2, bed alarm in zone 1 and call light within reach.
[2020-07-21 08:00] VITALS: BP 91/49
--- NOTE | 2020-07-21 08:10 | NUR ---
NURSE NOTES: Contacted Dr. Hallman for patients BP of 91/49 with HR of 66. Patients is AAox3, no acute signs of distress and no complaints of dizziness, no fever. Left message awaiting orders.
[2020-07-21] MEDS: Ascorbic Acid 500mg tab ORAL SCH ×2 (08:23→17:23)
[2020-07-21] MEDS: Tamsulosin 0.4mg cap ORAL SCH (08:23)
[2020-07-21] MEDS: Spironolactone 25mg tab ORAL SCH (08:24)
[2020-07-21] MEDS: Furosemide 40mg tab ORAL SCH (08:24)
[2020-07-21] MEDS: Amiodarone 200mg tab ORAL SCH (08:24)
[2020-07-21] MEDS ORDERED: NS 250 ML IVPB ONE (09:00)
--- NOTE | 2020-07-21 11:18 | Surgery Progress Note ---
Surgery Progress Note Subjective Additional Comments h/h noted comfortable no complaints no n/v no bleeding Objective Last 24 Hour Vital Signs Date Time Temp Pulse Resp B/P (MAP) Pulse Ox O2 Delivery O2 Flow Rate FiO2 07/21/20 09:00 Room Air 07/21/20 08:00 63 07/21/20 08:00 97.5 64 20 91/49 (63) 96 07/21/20 04:00 98.1 60 20 109/53 (71) 100 07/21/20 04:00 60 07/21/20 00:00 97.9 59 20 104/50 (68) 100 07/20/20 21:00 Room Air 07/20/20 20:00 98.1 60 20 101/54 (70) 100 07/20/20 20:00 60 07/20/20 16:00 60 07/20/20 16:00 97.2 60 20 91/51 (64) 98 07/20/20 12:00 97.7 60 18 110/50 (70) 97 07/20/20 12:00 60 I&O Intake and Output 07/20/20 07/21/20 19:00 07:00 Intake Total 360 ml 200 ml Balance 360 ml 200 ml Intake Oral 360 ml 200 ml # Voids 4 1 Dressing: saturated Cardiovascular: RSR Respiratory: decreased breath sounds Abdomen: soft, flat, non-tender, present bowel sounds, non-distended Extremities: no edema, no tenderness, no cyanosis Laboratory Tests Test 07/20/20 11:20 White Blood Count 7.6 K/UL (4.8-10.8) Red Blood Count 2.85 M/UL (4.70-6.10) L Hemoglobin 6.5 G/DL (14.2-18.0) *L Hematocrit 23.1 % (42.0-52.0) L Mean Corpuscular Volume 81 FL (80-99) Mean Corpuscular Hemoglobin 22.9 PG (27.0-31.0) L Mean Corpuscular Hemoglobin Concent 28.2 G/DL (32.0-36.0) L Red Cell Distribution Width 25.7 % (11.6-14.8) H Platelet Count 252 K/UL (150-450) Mean Platelet Volume 5.2 FL (6.5-10.1) L Neutrophils (%) (Auto) % (45.0-75.0) Lymphocytes (%) (Auto) % (20.0-45.0) Monocytes (%) (Auto) % (1.0-10.0) Eosinophils (%) (Auto) % (0.0-3.0) Basophils (%) (Auto) % (0.0-2.0) Differential Total Cells Counted 100 Neutrophils % (Manual) 73 % (45-75) Lymphocytes % (Manual) 19 % (20-45) L Monocytes % (Manual) 3 % (1-10) Eosinophils % (Manual) 5 % (0-3) H Basophils % (Manual) 0 % (0-2) Band Neutrophils 0 % (0-8) Platelet Estimate Adequate Platelet Morphology Normal Polychromasia 2+ Hypochromasia 2+ Anisocytosis 3+ Schistocytes 1+ Sodium Level 138 MMOL/L (136-145) Potassium Level 4.2 MMOL/L (3.5-5.1) Chloride Level 104 MMOL/L (98-107) Carbon Dioxide Level 28 MMOL/L (21-32) Blood Urea Nitrogen 31 mg/dL (7-18) H Creatinine 1.7 MG/DL (0.55-1.30) H Estimat Glomerular Filtration Rate 46.8 mL/min (>60) Glucose Level 108 MG/DL (74-106) H Calcium Level 10.8 MG/DL (8.5-10.1) H Plan Problems: (1) Anemia (2) Chronic obstructive pulmonary disease (3) Sacral decubitus ulcer Assessment & Plan: Pt presented on admission with multiple Pressure Injuries. Sacral Pressure Injury resolving(L)1.5cm x (W)0.5cm. Base of wound is pink with maceration. Multiple Ulcerations at base of Scrotum . Wounds are resolving(#1) Full thickness Pressure Injury base of wound resolving. Base of wound is 50% mihai 50% pink epithelial(L)2cm x (W)1.2cm. Edges are adherent to base of wound. NO exudate noted. (#2)Wound R testicle resolving. [place] epithelial at base of wound. No exudate noted (L)2cm x (W)1.2cm. (#3)Wound that is proximally to above documented wounds is also resolving(L)1cm x (W)1cm. Base of wound is 25% mihai ,75% surrounding pink epithelial.. L Heel has resolved. Heel is boggy but blanchable and non-tender when palpated R heel has resolved. R heel is boggy but blanchable and non-tender when palpated. Pt is frequently and heavily incontinent of Bladder. place urinary pouch to mini brooke further skin breakdown from incontinence. Pt is well endowed and unable to place urinary pouch. Ok to improvise with Fecal pouch to contain incontinence. Fecal pouch in place and attached to drainage bag. DAILY ESTIMATED NEEDS: Needs based on Cardiac, wound 88kg abw 25-35 kcals/kg 1046-5607 total kcals 1.25-1.5 g protein/kg 110-132 g total protein Fluid per MD, on lasix NUTRITION DIAGNOSIS: Increased kcal and pro needs r/t wound healing as evidenced by w/ full thickness scrotal wound, refer to full wound care eval. CURRENT DIET:CARDIAC PO DIET RECOMMENDATIONS: Liberalized Regular diet/ texture as tolerated w/ variable po intake ADDITIONAL RECOMMENDATIONS: 1) CALIBRATED BED SCALE wt 2) On lasix and aldactone, monitor lytes daily 3) Ensure Enlive TID w/ meals 4) PARIMUTUEL CLERK eval for appropriate texture 5) WOUND CARE: continue MVI and Vit C KELLEY BID added to tray Pt presented on admission with multiple Scrotal Pressure injuries. Wounds are resolving.(#1)Wound at base of Scrotum is superficial with re-epithelialization. NO exudate noted. Edges are adherent to base of wound(L)1.5cm x (W)0.9cm. #2 Wound R testicle (proximally)is resolving. Base of wound is superficial with re-epithelialization.(L)1cm x (W)0.4cm. (#3)Wound R testicle(distally) resolving . Base of wound is superficial, pink with re-epithelialization. edges are adherent to base of wound.(L)1cm x (W)1cm. Small callused area at cleft noted(L)1cm x (W)0.5cm. Pt complained site is tender when minimally palpated or when he lies on his back.No erythema fluctuance or induration to surrounding sacrum.Pt confirmed Hx of having Pressure ulcer at source of callusing. R heel is boggy but blanchable. L Heel is boggy with non-blanchable erythema with delineated margins(L)4.5cm x (W)7.5cm.Tender when minimally palpated. Tx.Plan: Apply Moisture Barrier Paste to Scrotal Ulcers. Cover with Optifoam d rsg. Change every 3 days and prn. Please cover Scrotal wounds with Optifoam to minimize friction. Apply Moisture Barrier Paste to Sacrum. Cover with Optifoam drsg. Change every 3 days and prn. Apply Cavilon Skin Barrier to Both heels. Cover each heel with Optifoam drsg. Change every 7 days and prn. Reposition at least every 2hours or as tolerated. Off-load heels with Pillow. (4) PNA (pneumonia) (5) Elevated troponin (6) UTI (lower urinary tract infection) (7) Acute exacerbation of CHF (congestive heart failure) (8) UTI (lower urinary tract infection) (9) Atrial fibrillation (10) CHF (congestive heart failure) (11) Orthopnea (12) Dyspnea on exertion (13) Swelling of lower extremity Assessment & Plan: not moving much breakdown noted edema stable nutritional optimization (14) Generalized ischemic cerebrovascular disease (15) acute onset left [place] pulsy. (16) Hemoptysis (17) Stroke (18) COPD exacerbation (19) Acute exacerbation of CHF (congestive heart failure) (20) Epistaxis Erlin Kearns Jul 21, 2020 11:18
[2020-07-21 12:00] VITALS: BP 107/54
--- NOTE | 2020-07-21 12:06 | NUR ---
RD ASSESSMENT & RECOMMENDATIONS SEE CARE ACTIVITY FOR COMPLETE ASSESSMENT DAILY ESTIMATED NEEDS: Needs based on Cardiac, wound 88kg abw 25-35 kcals/kg 3263-4472 total kcals 1.25-1.5 g protein/kg 110-132 g total protein Fluid per MD, on lasix NUTRITION DIAGNOSIS: Increased kcal and pro needs r/t wound healing as evidenced by w/ full thickness scrotal wound, refer to full wound care eval. CURRENT DIET:CARDIAC, now ms finely chopped PO DIET RECOMMENDATIONS: Liberalized Regular diet/ texture as tolerated w/ variable po intake ENTERAL NUTRITION RECOMMENDATIONS: Non oral feed if part of POC w/ continued poor po intake ADDITIONAL RECOMMENDATIONS: 1) CALIBRATED BED SCALE wt 2) On lasix and aldactone, monitor lytes daily 3) Ensure Enlive TID w/ meals 4) VISCOSE CELLAR WORKER eval for appropriate texture 5) WOUND CARE: continue MVI and Vit C KELLEY BID added to tray . Addendum: 07/21/20 at [address] ---- Increase Ensure Enlive to QID, monitor tolerance.
--- NOTE | 2020-07-21 12:31 | NUR ---
CAUSTIC STRENGTH INSPECTOR NOTES CLINICALS REVIEWED. SPOKE WITH PT'S DAUGHTER KAI, HOSPITAL BED WAS DELIVERED.DC PENDING MEDICAL CLEARANCE.
[2020-07-21 16:00] VITALS: BP 103/48
--- NOTE | 2020-07-21 17:22 | General Progress Note ---
Subjective ROS Limited/Unobtainable: No Constitutional: Reports: malaise, weakness HEENT: Reports: no symptoms Cardiovascular: Reports: edema Respiratory: Reports: cough, shortness of breath Gastrointestinal/Abdominal: Reports: no symptoms Genitourinary: Reports: no symptoms Neurologic/Psychiatric: Reports: no symptoms Endocrine: Reports: no symptoms Hematologic/Lymphatic: Reports: anemia Allergies: Coded Allergies: No Known Allergies (Verified , 01/23/09) All Systems: reviewed and negative except above Subjective no complaints. stable on the vent. no fevers. no chest pain. sob only with activity. no labs today. no bleeding. Objective Last 24 Hour Vital Signs Date Time Temp Pulse Resp B/P (MAP) Pulse Ox O2 Delivery O2 Flow Rate FiO2 07/21/20 16:00 99.3 57 20 103/48 (66) 95 07/21/20 16:00 60 07/21/20 12:00 60 07/21/20 12:00 97.9 60 20 107/54 (71) 95 07/21/20 09:00 Room Air 07/21/20 08:00 63 07/21/20 08:00 97.5 64 20 91/49 (63) 96 07/21/20 04:00 98.1 60 20 109/53 (71) 100 07/21/20 04:00 60 07/21/20 00:00 97.9 59 20 104/50 (68) 100 07/20/20 21:00 Room Air 07/20/20 20:00 98.1 60 20 101/54 (70) 100 07/20/20 20:00 60 Intake and Output 07/20/20 07/21/20 19:00 07:00 Intake Total 360 ml 200 ml Balance 360 ml 200 ml Intake Oral 360 ml 200 ml # Voids 4 1 Height (Feet): 6 Height (Inches): 1.00 Weight (Pounds): 180 Objective General Appearance: WD/WN, alert, confused EENT: normal ENT inspection Neck: normal alignment, supple Cardiovascular: normal rate, regular rhythm Respiratory/Chest: chest wall non-tender, lungs clear, normal breath sounds, no respiratory distress, no accessory muscle use Abdomen: normal bowel sounds, non tender, soft, no organomegaly Edema: 3+ Pedal (L), 3+ Pedal (R) Edema: severe edema 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 II-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, alert, responsive Skin: normal pigmentation, warm/dry Assessment/Plan Problem List: (1) Acute exacerbation of CHF (congestive heart failure) (2) Swelling of lower extremity ICD Codes: M79.89 - Other specified soft tissue disorders SNOMED: 751077356, 038282345 (3) Orthopnea (4) CHF (congestive heart failure) ICD Codes: I50.9 - CHF (congestive heart failure) SNOMED: 24339070 (5) Atrial fibrillation ICD Codes: I48.91 - Atrial fibrillation SNOMED: 70792414 (6) Anemia ICD Codes: D64.9 - Anemia, unspecified SNOMED: 939847179 (7) Elevated troponin ICD Codes: R74.8 - Elevated troponin SNOMED: 768225274 Status: stable, progressing Assessment/Plan: cont iron replacement and high dose epo qod- will increase monitor h/h monitor for bleeding PPI rx b12 levelm ok tfts nml elevated legs turn q2 pt/ot po lasix amio colonsocopy when Hgb better possible EUS and paracentesis Sumit Hallman MD Jul 21, 2020 17:22
[2020-07-21] MEDS: HYDROcodone/Acetamin 5/325 tab ORAL PRN (18:41)
--- NOTE | 2020-07-21 18:54 | NUR ---
NURSE HAND-OFF REPORT: Important Events on Shift:[Rulo given, Hypotensive gave NS bolus] Patient Status: [Full code] Diet: [Cardiac Diet] Pending Orders: [N/A] Pending Results/Labs:[N/A] Pending MD notification:[N/A] Latest Vital Signs: Temperature 99.3 , Pulse 60 , B/P 103 /48 , Respiratory Rate 20 , O2 SAT 95 , Nasal Cannula, O2 Flow Rate 2.0 . Vital Sign Comment: [] EKG Rhythm: A-pacing, SRw/ 1st AVB Rhythm change?: N MD Notified?: N - MD Response: Latest Munroe Fall Score: 50 Fall Risk: High Risk Safety Measures: Call light Within Reach, Bed Alarm Zone 1, Side Rails Side Rails x3, Bed position Low and Locked. Fall Precautions: Yellow Socks Yellow Gown Door Sign Patient Fall Education Report given to [JENNIFER Ortega].
[2020-07-21 20:00] VITALS: BP 97/50
[2020-07-21] MEDS: Iron Sucrose 100 MG in NS 55 ML IVPB SCH (20:27)
[2020-07-21] MEDS: Atorvastatin 20mg tab ORAL SCH (20:28)
[2020-07-21] MEDS: Epoetin Alfa-EPBX (NON ESRD) 2000 units/ml vial SUBQ SCH (20:28)
[2020-07-21] MEDS: Epoetin Alfa-EPBX (NON ESRD)10,000 unit/ml vial SUBQ SCH (20:28)
--- NOTE | 2020-07-21 22:42 | General Progress Note ---
Subjective Allergies: Coded Allergies: No Known Allergies (Verified , 01/23/09) Subjective no new complaints no abdominal complaints Objective Last 24 Hour Vital Signs Date Time Temp Pulse Resp B/P (MAP) Pulse Ox O2 Delivery O2 Flow Rate FiO2 07/21/20 16:00 99.3 57 20 103/48 (66) 95 07/21/20 16:00 60 07/21/20 12:00 60 07/21/20 12:00 97.9 60 20 107/54 (71) 95 07/21/20 09:00 Room Air 07/21/20 08:00 63 07/21/20 08:00 97.5 64 20 91/49 (63) 96 07/21/20 04:00 98.1 60 20 109/53 (71) 100 07/21/20 04:00 60 07/21/20 00:00 97.9 59 20 104/50 (68) 100 Intake and Output 07/20/20 07/21/20 19:00 07:00 Intake Total 360 ml 200 ml Balance 360 ml 200 ml Intake Oral 360 ml 200 ml # Voids 4 1 Height (Feet): 6 Height (Inches): 1.00 Weight (Pounds): 180 Objective WDWN NCAT supple CTA RRR abd soft NT, but distended trace edema Assessment/Plan Status: stable, progressing Assessment/Plan: Assessment - Iron deficiency anemia - negative EGD - unable to order capsule endoscopy - SBFT normal - worsening H&H despite FE and EPO concerning ---> consider heme opinion (also for elevated CEA and CA19-9) - jocelyne Pimentel transfusion - lower abdominal TTP, ? etiology - resolved - New Ascites - ? due to (R) sided CHF - r/o malignancy - will consider paracentesis once H&H higher - Elevated Bilirubin - ? due to passive congestion - biliary ductal dilation, r/o downstream obstruction - Cannot order MRCP due to pacer --> will need EUS - Check CEA and CA 19-9 - both elevated - b/l edema and anasarca - azotemia - improved - CHF - COPD - CHF Recommendations - EPO - IV Iron - re check stool OB - PPI - Consider Heme-Onc opinion - Pending studies to consider: - colonoscopy - EUS - once Hg 7.0 - paracentesis Jacob Deleon MD Jul 21, 2020 22:42
[2020-07-22] VITALS: BP 107/50
--- NOTE | 2020-07-22 | NUR ---
NURSE NOTES: Assumed pt's care at 1900 from Aidan Gonzalez RN. Pt is alert & verbal, able to voice needs. No acute distress noted, respirations even and unlabored, remains on room air. Denies any pain, reposition as tolerated. Meds admin as directed, poor po intake. Safety and comfort measures maintained, call light within reach, bed in low position.
--- NOTE | 2020-07-22 03:05 | Cardiology Progress Note ---
Subjective DATE OF SERVICE: Jul 21, 2020 Stool OB negative most recently. Hemoglobin dropped again yesterday - venofer was resumed 4 days ago. EGD completed 07/11/20 without complication; no bleeding source found. Small bowel series (07/15/20) normal. No CP. No SOB in bedbound state or with limited mobilization. No N/V/D or pain. Appetite fair. Needs almost total assist with care. Objective Last 24 Hour Vital Signs Date Time Temp Pulse Resp B/P (MAP) Pulse Ox O2 Delivery O2 Flow Rate FiO2 07/22/20 00:00 97.9 61 20 107/50 (69) 93 07/22/20 00:00 60 07/21/20 21:00 Room Air 07/21/20 20:00 60 07/21/20 20:00 98.4 61 20 97/50 (66) 95 07/21/20 16:00 99.3 57 20 103/48 (66) 95 07/21/20 16:00 60 07/21/20 12:00 60 07/21/20 12:00 97.9 60 20 107/54 (71) 95 07/21/20 09:00 Room Air 07/21/20 08:00 63 07/21/20 08:00 97.5 64 20 91/49 (63) 96 07/21/20 04:00 98.1 60 20 109/53 (71) 100 07/21/20 04:00 60 HEENT: normal ENT inspection RHYTHM: Afib, other - demand Ventric pacing LUNGS: diminished breath sounds CARDIAC: normal rate, normal S1 and S2, irregularly irregular, systolic murmur - 1/6 apical systolic murmur ABDOMEN: normal bowel sounds EXTREMITIES: normal range of motion, +3 edema Assessment/Plan Assessment/Plan Severe anemia with iron deficiency GI bleed Jehovahs witness Ac/chr diastolic CHF now compensated PAFib Pacemaker Hx thoracic aorta repair Elev LFT's may be due to passive congestion COPD Conjunctivitis Abd pain Ac/chr renal failure - improved Orthostatic risk Hypomagnesemia Cannot discharge yet; needs more IV iron. Venofer needs to be continued - expect cont'd improvement in hb next few days. Tumor markers pending (CEA/Ca19-9) Continue hydrocodone prn for back pain and CROSS Diuresis adjustment based on clinical status. O2 suppl IV iron and sq EPO Titrate anti-failure rx - decrease for low range BP. No aspirin or anticoag rx; off NSAID's Topical abx IV magnesium repl and oral potassium rx as needed Will need to arrange hospital bed and other assist before can manage at home. Per GI, defer colonscopy until hb above 8. Considering EUS and paracentesis. Yvan Encarnacion MD Jul 22, 2020 03:05
[2020-07-22 04:48] VITALS: BP 107/51
--- NOTE | 2020-07-22 07:23 | NUR ---
NURSE HAND-OFF REPORT: Important Events on Shift: Patient Status: Diet: Pending Orders: Pending Results/Labs: Pending MD notification: Latest Vital Signs: Temperature 98.1 , Pulse 60 , B/P 107 /51 , Respiratory Rate 16 , O2 SAT 94 , Nasal Cannula, O2 Flow Rate 2.0 . Vital Sign Comment: EKG Rhythm: A-Paced Rhythm change?: N MD Notified?: N - MD Response: Latest Munroe Fall Score: 50 Fall Risk: High Risk Safety Measures: Call light Within Reach, Bed Alarm Zone 1, Side Rails Side Rails x3, Bed position Low and Locked. Fall Precautions: Yellow Socks Yellow Gown Door Sign Patient Fall Education Report given to .
--- NOTE | 2020-07-22 07:30 | NUR ---
NURSE NOTES: Received pt from JENNIFER Self, pt is sleeping, pt is on RA, no SOB or acute respiratory distress noted. pt is on continues heart monitoring. pt has intact iv access LFA 20g SL. no complain of pain at this moment. all needs attended, bed is locked and is in the lowest position, call light within easy reach. will continue to monitor.
[2020-07-22 08:00] VITALS: BP 104/53
[2020-07-22] MEDS: Ascorbic Acid 500mg tab ORAL SCH ×2 (09:11→17:36)
[2020-07-22] MEDS: Tamsulosin 0.4mg cap ORAL SCH (09:11)
[2020-07-22] MEDS: Spironolactone 25mg tab ORAL SCH (09:11)
[2020-07-22] MEDS: Furosemide 40mg tab ORAL SCH (09:11)
[2020-07-22] MEDS: Amiodarone 200mg tab ORAL SCH (09:11)
[2020-07-22 10:35] LABS: HEMATOCRIT 25.4 % (42.0-52.0); HEMOGLOBIN 7.1 G/DL (14.2-18.0); MEAN CORPUSCULAR VOLUME 84 FL (80-99); PLATELET COUNT 250 K/UL (150-450); RED BLOOD COUNT 3.02 M/UL (4.70-6.10)
[2020-07-22 11:14] LABS: ALBUMIN 2.9 G/DL (3.4-5.0); ALBUMIN/GLOBULIN RATIO 0.7 (1.0-2.7); BILIRUBIN,TOTAL 1.7 MG/DL (0.2-1.0); CALCIUM 10.9 MG/DL (8.5-10.1); CREATININE 1.9 MG/DL (0.55-1.30); POTASSIUM 4.4 MMOL/L (3.5-5.1)
[2020-07-22 11:20] LABS: BILIRUBIN,DIRECT 1.2 MG/DL (0.0-0.3)
[2020-07-22 12:00] VITALS: BP 120/54
--- NOTE | 2020-07-22 12:45 | Surgery Progress Note ---
Surgery Progress Note Subjective Additional Comments h/h stable lfts noted cea/ca 19-9 elevated no n/v para planned Objective Last 24 Hour Vital Signs Date Time Temp Pulse Resp B/P (MAP) Pulse Ox O2 Delivery O2 Flow Rate FiO2 07/22/20 12:00 97.3 61 20 120/54 (76) 93 07/22/20 11:37 60 07/22/20 09:00 Room Air 07/22/20 08:00 97.8 62 20 104/53 (70) 94 07/22/20 07:27 60 07/22/20 05:58 60 07/22/20 04:48 98.1 62 16 107/51 (69) 94 07/22/20 00:00 97.9 61 20 107/50 (69) 93 07/22/20 00:00 60 07/21/20 21:00 Room Air 07/21/20 20:00 60 07/21/20 20:00 98.4 61 20 97/50 (66) 95 07/21/20 16:00 99.3 57 20 103/48 (66) 95 07/21/20 16:00 60 I&O Intake and Output 07/21/20 07/22/20 19:00 07:00 Intake Total 870 ml Balance 870 ml Intake Oral 870 ml # Voids 2 4 Cardiovascular: RSR Respiratory: decreased breath sounds Abdomen: soft, non-tender, present bowel sounds, non-distended Extremities: no edema, no tenderness, no cyanosis Laboratory Tests Test 07/22/20 09:45 White Blood Count 8.0 K/UL (4.8-10.8) Red Blood Count 3.02 M/UL (4.70-6.10) L Hemoglobin 7.1 G/DL (14.2-18.0) L Hematocrit 25.4 % (42.0-52.0) L Mean Corpuscular Volume 84 FL (80-99) Mean Corpuscular Hemoglobin 23.4 PG (27.0-31.0) L Mean Corpuscular Hemoglobin Concent 27.8 G/DL (32.0-36.0) L Red Cell Distribution Width 29.0 % (11.6-14.8) H Platelet Count 250 K/UL (150-450) Mean Platelet Volume 7.7 FL (6.5-10.1) Neutrophils (%) (Auto) % (45.0-75.0) Lymphocytes (%) (Auto) % (20.0-45.0) Monocytes (%) (Auto) % (1.0-10.0) Eosinophils (%) (Auto) % (0.0-3.0) Basophils (%) (Auto) % (0.0-2.0) Differential Total Cells Counted 100 Neutrophils % (Manual) 68 % (45-75) Lymphocytes % (Manual) 21 % (20-45) Monocytes % (Manual) 7 % (1-10) Eosinophils % (Manual) 4 % (0-3) H Basophils % (Manual) 0 % (0-2) Band Neutrophils 0 % (0-8) Platelet Estimate Adequate Platelet Morphology Normal Polychromasia 1+ Hypochromasia 2+ Poikilocytosis 1+ Anisocytosis 2+ Target Cells Occasional Schistocytes 1+ Sodium Level 141 MMOL/L (136-145) Potassium Level 4.4 MMOL/L (3.5-5.1) Chloride Level 105 MMOL/L (98-107) Carbon Dioxide Level 26 MMOL/L (21-32) Anion Gap 10 mmol/L (5-15) Blood Urea Nitrogen 39 mg/dL (7-18) H Creatinine 1.9 MG/DL (0.55-1.30) H Estimat Glomerular Filtration Rate 41.1 mL/min (>60) Glucose Level 139 MG/DL (74-106) H Calcium Level 10.9 MG/DL (8.5-10.1) H Magnesium Level 2.1 MG/DL (1.8-2.4) Total Bilirubin 1.7 MG/DL (0.2-1.0) H Direct Bilirubin 1.2 MG/DL (0.0-0.3) H Aspartate Amino Transf (AST/SGOT) 31 U/L (15-37) Alanine Aminotransferase (ALT/SGPT) 23 U/L (12-78) Alkaline Phosphatase 90 U/L (46-116) Pro-B-Type Natriuretic Peptide 6030 pg/mL (0-125) H Total Protein 7.1 G/DL (6.4-8.2) Albumin 2.9 G/DL (3.4-5.0) L Globulin 4.2 g/dL Albumin/Globulin Ratio 0.7 (1.0-2.7) L Plan Problems: (1) Anemia (2) Chronic obstructive pulmonary disease (3) Sacral decubitus ulcer Assessment & Plan: Pt presented on admission with multiple Pressure Injuries. Sacral Pressure Injury resolving(L)1.5cm x (W)0.5cm. Base of wound is pink with maceration. Multiple Ulcerations at base of Scrotum . Wounds are resolving(#1) Full thickness Pressure Injury base of wound resolving. Base of wound is 50% mihai 50% pink epithelial(L)2cm x (W)1.2cm. Edges are adherent to base of wound. NO exudate noted. (#2)Wound R testicle resolving. Capron epithelial at base of wound. No exudate noted (L)2cm x (W)1.2cm. (#3)Wound that is proximally to above documented wounds is also resolving(L)1cm x (W)1cm. Base of wound is 25% mihai ,75% surrounding pink epithelial.. L Heel has resolved. Heel is boggy but blanchable and non-tender when palpated R heel has resolved. R heel is boggy but blanchable and non-tender when palpated. Pt is frequently and heavily incontinent of Bladder. place urinary pouch to minimize further skin breakdown from incontinence. Pt is well endowed and unable to place urinary pouch. Ok to improvise with Fecal pouch to contain incontinence. Fecal pouch in place and attached to drainage bag. DAILY ESTIMATED NEEDS: Needs based on Cardiac, wound 88kg abw 25-35 kcals/kg 1799-3814 total kcals 1.25-1.5 g protein/kg 110-132 g total protein Fluid per MD, on lasix NUTRITION DIAGNOSIS: Increased kcal and pro needs r/t wound healing as evidenced by w/ full thickness scrotal wound, refer to full wound care eval. CURRENT DIET:CARDIAC PO DIET RECOMMENDATIONS: Liberalized Regular diet/ texture as tolerated w/ variable po intake ADDITIONAL RECOMMENDATIONS: 1) CALIBRATED BED SCALE wt 2) On lasix and aldactone, monitor lytes daily 3) Ensure Enlive TID w/ meals 4) SINKER PULLER eval for appropriate texture 5) WOUND CARE: continue MVI and Vit C KELLEY BID added to tray Pt presented on admission with multiple Scrotal Pressure injuries. Wounds are resolving.(#1)Wound at base of Scrotum is superficial with re-epithelialization. NO exudate noted. Edges are adherent to base of wound(L)1.5cm x (W)0.9cm. #2 Wound R testicle (proximally)is resolving. Base of wound is superficial with re-epithelialization.(L)1cm x (W)0.4cm. (#3)Wound R testicle(distally) resolving . Base of wound is superficial, pink with re-epithelialization. edges are adherent to base of wound.(L)1cm x (W)1cm. Small callused area at landen cleft noted(L)1cm x (W)0.5cm. Pt complained site is tender when minimally palpated or when he lies on his back.No erythema fluctuance or induration to surrounding sacrum.Pt confirmed Hx of having Pressure ulcer at source of callusing. R heel is boggy but blanchable. L Heel is boggy with non-blanchable erythema with delineated margins(L)4.5cm x (W)7.5cm.Tender when minimally palpated. Tx.Plan: Apply Moisture Barrier Paste to Scrotal Ulcers. Cover with Optifoam drsg. Change every 3 days and prn. Please cover Scrotal wounds with Optifoam to minimize friction. Apply Moisture Barrier Paste to Sacrum. Cover with Optifoam drsg. Change every 3 days and prn. Apply Cavilon Skin Barrier to Both heels. Cover each heel with Optifoam drsg. Change every 7 days and prn. Reposition at least every 2hours or as tolerated. Off-load heels with Pillow. 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 (16) Hemoptysis (17) Stroke (18) COPD exacerbation (19) Acute exacerbation of CHF (congestive heart failure) (20) Epistaxis (21) Ascites Assessment & Plan: now onset h/h stable lfts noted cea/ca 19-9 elevated no n/v para planned Erlin Kearns Jul 22, 2020 12:45
[2020-07-22 15:50] VITALS: BP 110/50
--- NOTE | 2020-07-22 15:52 | General Progress Note ---
Subjective ROS Limited/Unobtainable: No Constitutional: Reports: malaise, weakness HEENT: Reports: no symptoms Cardiovascular: Reports: no symptoms Respiratory: Reports: cough Gastrointestinal/Abdominal: Reports: no symptoms Genitourinary: Reports: no symptoms Neurologic/Psychiatric: Reports: no symptoms Endocrine: Reports: no symptoms Hematologic/Lymphatic: Reports: anemia Allergies: Coded Allergies: No Known Allergies (Verified , 01/23/09) All Systems: reviewed and negative except above Subjective There have been no significant overnight's. There have been no reports of any bleeding. No melena or bright red blood per rectum. Stool occult blood is negative now. Hemoglobin now up to 7.1. Patient is able to feed himself but is otherwise bedbound. Denies any chest pain. Objective Last 24 Hour Vital Signs Date Time Temp Pulse Resp B/P (MAP) Pulse Ox O2 Delivery O2 Flow Rate FiO2 07/22/20 15:43 60 07/22/20 12:00 97.3 61 20 120/54 (76) 93 07/22/20 11:37 60 07/22/20 09:00 Room Air 07/22/20 08:00 97.8 62 20 104/53 (70) 94 07/22/20 07:27 60 07/22/20 05:58 60 07/22/20 04:48 98.1 62 16 107/51 (69) 94 07/22/20 00:00 97.9 61 20 107/50 (69) 93 07/22/20 00:00 60 07/21/20 21:00 Room Air 07/21/20 20:00 60 07/21/20 20:00 98.4 61 20 97/50 (66) 95 07/21/20 16:00 99.3 57 20 103/48 (66) 95 07/21/20 16:00 60 Intake and Output 07/21/20 07/22/20 19:00 07:00 Intake Total 870 ml Balance 870 ml Intake Oral 870 ml # Voids 2 4 Laboratory Tests 07/22/20 09:45: White Blood Count 8.0, Red Blood Count 3.02L, Hemoglobin 7.1L, Hematocrit 25.4L, Mean Corpuscular Volume 84, Mean Corpuscular Hemoglobin 23.4L, Mean Corpuscular Hemoglobin Concent 27.8L, Red Cell Distribution Width 29.0H, Platelet Count 250, Mean Platelet Volume 7.7, Neutrophils (%) (Auto) , Lymphocytes (%) (Auto) , Monocytes (%) (Auto) , Eosinophils (%) (Auto) , Basophils (%) (Auto) , Differential Total Cells Counted 100, Neutrophils % (Manual) 68, Lymphocytes % (Manual) 21, Monocytes % (Manual) 7, Eosinophils % (Manual) 4H, Basophils % (Manual) 0, Band Neutrophils 0, Platelet Estimate Adequate, Platelet Morphology Normal, Polychromasia 1+, Hypochromasia 2+, Poikilocytosis 1+, Anisocytosis 2+, Target Cells Occasional, Schistocytes 1+, Sodium Level 141, Potassium Level 4.4, Chloride Level 105, Carbon Dioxide Level 26, Anion Gap 10, Blood Urea Nitrogen 39H, Creatinine 1.9H, Estimat Glomerular Filtration Rate 41.1, Glucose Level 139H, Calcium Level 10.9H, Magnesium Level 2.1, Total Bilirubin 1.7H, Direct Bilirubin 1.2H, Aspartate Amino Transf (AST/SGOT) 31, Alanine Aminotransferase (ALT/SGPT) 23, Alkaline Phosphatase 90, Pro-B-Type Natriuretic Peptide 6030H, Total Protein 7.1, Albumin 2.9L, Globulin 4.2, Albumin/Globulin Ratio 0.7L Height (Feet): 6 Height (Inches): 1.00 Weight (Pounds): 180 Objective General Appearance: WD/WN, alert, confused EENT: normal ENT inspection Neck: normal alignment, supple Cardiovascular: normal rate, regular rhythm Respiratory/Chest: chest wall non-tender, lungs clear, normal breath sounds, no respiratory distress, no accessory muscle use Abdomen: normal bowel sounds, non tender, soft, no organomegaly Edema: 3+ Pedal (L), 3+ Pedal (R) Edema: severe edema 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, alert, responsive Skin: normal pigmentation, warm/dry Assessment/Plan Problem List: (1) Acute exacerbation of CHF (congestive heart failure) (2) Swelling of lower extremity ICD Codes: M79.89 - Other specified soft tissue disorders SNOMED: 665212519, 218617572 (3) Orthopnea (4) CHF (congestive heart failure) ICD Codes: I50.9 - CHF (congestive heart failure) SNOMED: 62660910 (5) Atrial fibrillation ICD Codes: I48.91 - Atrial fibrillation SNOMED: 06293808 (6) Anemia ICD Codes: D64.9 - Anemia, unspecified SNOMED: 367402866 (7) Elevated troponin ICD Codes: R74.8 - Elevated troponin SNOMED: 847955573 Status: stable, progressing Assessment/Plan: cont iron replacement and high dose epo qod monitor h/h monitor for bleeding PPI rx b12 levelm ok tfts nml elevated legs turn q2 pt/ot po lasix amio colonsocopy when Hgb better possible EUS and paracentesis Sumit Hallman MD Jul 22, 2020 15:52
--- NOTE | 2020-07-22 19:26 | NUR ---
NURSE HAND-OFF REPORT: Important Events on Shift: Patient Status: Diet: Pending Orders: Pending Results/Labs: Pending MD notification: Latest Vital Signs: Temperature 97.9 , Pulse 60 , B/P 110 /50 , Respiratory Rate 20 , O2 SAT 93 , Nasal Cannula, O2 Flow Rate 2.0 . Vital Sign Comment: EKG Rhythm: A-Paced Rhythm change?: N MD Notified?: N - MD Response: Latest Munroe Fall Score: 50 Fall Risk: High Risk Safety Measures: Call light Within Reach, Bed Alarm Zone 1, Side Rails Side Rails x3, Bed position Low and Locked. Fall Precautions: Yellow Socks Yellow Gown Door Sign Patient Fall Education Report given to . Pt is awake and stable, no stress noted, endorsed plan of care, endorsed to keep pt NPO mid night due to abd us.
--- NOTE | 2020-07-22 19:27 | NUR ---
NURSE NOTES: Report received from JENNIFER Ho. Upon assessment pt is awake in bed; A/Ox3; not oriented to time. PERRLA. Pt c/o pain 8/10 on back area and says he "wants to phone/go home." Repositioned pt as needed. A-Pace on the monitor. Vitals WNL. Saturating 95% on R/A. Bed kept in lowest and locked position. Side rails up x3. Call light within reach. Will monitor.
[2020-07-22 20:00] VITALS: BP 107/51
[2020-07-22] MEDS: HYDROcodone/Acetamin 5/325 tab ORAL PRN (20:17)
[2020-07-22] MEDS: Atorvastatin 20mg tab ORAL SCH (20:18)
--- NOTE | 2020-07-22 20:43 | NUR ---
NURSE NOTES: Pt c/o pain 12/23 and requests for norco PRN. PRN administered. Made aware of NPO status midnight due to ab u/s. no distress noted - will monitor.
--- NOTE | 2020-07-22 21:04 | General Progress Note ---
Subjective Allergies: Coded Allergies: No Known Allergies (Verified , 01/23/09) Subjective no new complaints no abdominal complaints Hg now 7.1 Discussed with at length re findings Advised re imaging and lab findings suspicious for CA Advised EUS/FNA, Paracentesis, Colonoscopy recommended worried about bleeding risk with these procedures, mary given borderline Hg and Jehova beliefs wants to give patient more time to recover his counts Advised to remind me and PMD team in 1 month to reassess patient for evaluation Given my contact information Objective Last 24 Hour Vital Signs Date Time Temp Pulse Resp B/P (MAP) Pulse Ox O2 Delivery O2 Flow Rate FiO2 07/22/20 20:00 98.0 62 20 107/51 (69) 95 07/22/20 15:50 97.9 60 20 110/50 (70) 93 07/22/20 15:43 60 07/22/20 12:00 97.3 61 20 120/54 (76) 93 07/22/20 11:37 60 07/22/20 09:00 Room Air 07/22/20 08:00 97.8 62 20 104/53 (70) 94 07/22/20 07:27 60 07/22/20 05:58 60 07/22/20 04:48 98.1 62 16 107/51 (69) 94 07/22/20 00:00 97.9 61 20 107/50 (69) 93 07/22/20 00:00 60 07/21/20 21:00 Room Air Intake and Output 07/21/20 07/22/20 19:00 07:00 Intake Total 870 ml Balance 870 ml Intake Oral 870 ml # Voids 2 4 Laboratory Tests 07/22/20 09:45: White Blood Count 8.0, Red Blood Count 3.02L, Hemoglobin 7.1L, Hematocrit 25.4L, Mean Corpuscular Volume 84, Mean Corpuscular Hemoglobin 23.4L, Mean Corpuscular Hemoglobin Concent 27.8L, Red Cell Distribution Width 29.0H, Platelet Count 250, Mean Platelet Volume 7.7, Neutrophils (%) (Auto) , Lymphocytes (%) (Auto) , Monocytes (%) (Auto) , Eosinophils (%) (Auto) , Basophils (%) (Auto) , Differential Total Cells Counted 100, Neutrophils % (Manual) 68, Lymphocytes % (Manual) 21, Monocytes % (Manual) 7, Eosinophils % (Manual) 4H, Basophils % (Manual) 0, Band Neutrophils 0, Platelet Estimate Adequate, Platelet Morphology Normal, Polychromasia 1+, Hypochromasia 2+, Poikilocytosis 1+, Anisocytosis 2+, Target Cells Occasional, Schistocytes 1+, Sodium Level 141, Potassium Level 4.4, Chloride Level 105, Carbon Dioxide Level 26, Anion Gap 10, Blood Urea Nitrogen 39H, Creatinine 1.9H, Estimat Glomerular Filtration Rate 41.1, Glucose Level 139H, Calcium Level 10.9H, Magnesium Level 2.1, Total Bilirubin 1.7H, Direct Bilirubin 1.2H, Aspartate Amino Transf (AST/SGOT) 31, Alanine Aminotransferase (ALT/SGPT) 23, Alkaline Phosphatase 90, Pro-B-Type Natriuretic Peptide 6030H, Total Protein 7.1, Albumin 2.9L, Globulin 4.2, Albumin/Globulin Ratio 0.7L Height (Feet): 6 Height (Inches): 1.00 Weight (Pounds): 180 Objective WDWN NCAT supple CTA RRR abd soft NT, but distended trace edema Assessment/Plan Status: stable, progressing Assessment/Plan: Assessment - Iron deficiency anemia - negative EGD - unable to order capsule endoscopy - SBFT normal - worsening H&H despite FE and EPO concerning ---> consider heme opinion (also for elevated CEA and CA19-9) - Loren, jocelyne transfusion - lower abdominal TTP, ? etiology - resolved - New Ascites - ? due to (R) sided CHF - r/o malignancy - will consider paracentesis once H&H higher - Elevated Bilirubin - ? due to passive congestion - biliary ductal dilation, r/o downstream obstruction - Cannot order MRCP due to pacer --> will need EUS - Check CEA and CA 19-9 - both elevated - b/l edema and anasarca - azotemia - improved - CHF - COPD - CHF Recommendations - EPO - IV Iron - re check stool OB --> now negative - PPI - Consider Heme-Onc opinion - Pending studies to consider: - colonoscopy - EUS - once Hg 7.0 - paracentesis - to contact medical team in 1 month to remind re-evaluation - OK for d/c from GI standpoint Jacob Deleon MD Jul 22, 2020 21:04
--- NOTE | 2020-07-22 23:30 | NUR ---
NURSE NOTES: Pt c/o inability to sleep despite repositioning, distraction, and warm bed bath. Called via pt cellphone to decrease anxiety. Pt requesting for MD to prescribe sleeping pill. Will monitor.
[2020-07-23] VITALS: BP 101/57
--- NOTE | 2020-07-23 | NUR ---
NURSE NOTES: Observed no SCD's on patient as ordered. Per previous RN, engineering was called since admission. Request MD order for duplex. No distress noted. Bed bath provided with TIPPLE GREASER at bedside.
--- NOTE | 2020-07-23 00:10 | Cardiology Progress Note ---
Subjective DATE OF SERVICE: Jul 22, 2020 Stool OB negative most recently. CA 19-9 elevataed. Hemoglobin improved - venofer was resumed 5 days ago. EGD completed 07/11/20 without complication; no bleeding source found. Small bowel series (07/15/20) normal. No CP. No SOB in bedbound state or with limited mobilization. No N/V/D or pain. Appetite fair. Needs almost total assist with care. Objective Last 24 Hour Vital Signs Date Time Temp Pulse Resp B/P (MAP) Pulse Ox O2 Delivery O2 Flow Rate FiO2 07/22/20 21:00 Room Air 07/22/20 20:54 97.9 07/22/20 20:00 60 07/22/20 20:00 98.0 62 20 107/51 (69) 95 07/22/20 15:50 97.9 60 20 110/50 (70) 93 07/22/20 15:43 60 07/22/20 12:00 97.3 61 20 120/54 (76) 93 07/22/20 11:37 60 07/22/20 09:00 Room Air 07/22/20 08:00 97.8 62 20 104/53 (70) 94 07/22/20 07:27 60 07/22/20 05:58 60 07/22/20 04:48 98.1 62 16 107/51 (69) 94 07/22/20 00:00 97.9 61 20 107/50 (69) 93 07/22/20 00:00 60 HEENT: normal ENT inspection RHYTHM: Afib, other - demand Ventric pacing LUNGS: diminished breath sounds CARDIAC: normal rate, normal S1 and S2, irregularly irregular, systolic murmur - 1/6 apical systolic murmur ABDOMEN: normal bowel sounds EXTREMITIES: normal range of motion, +3 edema Laboratory Tests Test 07/22/20 09:45 White Blood Count 8.0 K/UL (4.8-10.8) Red Blood Count 3.02 M/UL (4.70-6.10) L Hemoglobin 7.1 G/DL (14.2-18.0) L Hematocrit 25.4 % (42.0-52.0) L Mean Corpuscular Volume 84 FL (80-99) Mean Corpuscular Hemoglobin 23.4 PG (27.0-31.0) L Mean Corpuscular Hemoglobin Concent 27.8 G/DL (32.0-36.0) L Red Cell Distribution Width 29.0 % (11.6-14.8) H Platelet Count 250 K/UL (150-450) Mean Platelet Volume 7.7 FL (6.5-10.1) Neutrophils (%) (Auto) % (45.0-75.0) Lymphocytes (%) (Auto) % (20.0-45.0) Monocytes (%) (Auto) % (1.0-10.0) Eosinophils (%) (Auto) % (0.0-3.0) Basophils (%) (Auto) % (0.0-2.0) Differential Total Cells Counted 100 Neutrophils % (Manual) 68 % (45-75) Lymphocytes % (Manual) 21 % (20-45) Monocytes % (Manual) 7 % (1-10) Eosinophils % (Manual) 4 % (0-3) H Basophils % (Manual) 0 % (0-2) Band Neutrophils 0 % (0-8) Platelet Estimate Adequate Platelet Morphology Normal Polychromasia 1+ Hypochromasia 2+ Poikilocytosis 1+ Anisocytosis 2+ Target Cells Occasional Schistocytes 1+ Sodium Level 141 MMOL/L (136-145) Potassium Level 4.4 MMOL/L (3.5-5.1) Chloride Level 105 MMOL/L (98-107) Carbon Dioxide Level 26 MMOL/L (21-32) Anion Gap 10 mmol/L (5-15) Blood Urea Nitrogen 39 mg/dL (7-18) H Creatinine 1.9 MG/DL (0.55-1.30) H Estimat Glomerular Filtration Rate 41.1 mL/min (>60) Glucose Level 139 MG/DL (74-106) H Calcium Level 10.9 MG/DL (8.5-10.1) H Magnesium Level 2.1 MG/DL (1.8-2.4) Total Bilirubin 1.7 MG/DL (0.2-1.0) H Direct Bilirubin 1.2 MG/DL (0.0-0.3) H Aspartate Amino Transf (AST/SGOT) 31 U/L (15-37) Alanine Aminotransferase (ALT/SGPT) 23 U/L (12-78) Alkaline Phosphatase 90 U/L (46-116) Pro-B-Type Natriuretic Peptide 6030 pg/mL (0-125) H Total Protein 7.1 G/DL (6.4-8.2) Albumin 2.9 G/DL (3.4-5.0) L Globulin 4.2 g/dL Albumin/Globulin Ratio 0.7 (1.0-2.7) L Assessment/Plan Assessment/Plan Severe anemia with iron deficiency GI bleed Jehovahs witness Ac/chr diastolic CHF now compensated PAFib Pacemaker Hx thoracic aorta repair Elev LFT's may be due to passive congestion COPD Conjunctivitis Abd pain Ac/chr renal failure - improved Orthostatic risk Hypomagnesemia Continue IV iron. Tumor markers pending (CEA/Ca19-9) Continue hydrocodone prn for back pain and CROSS Diuresis adjustment based on clinical status. O2 suppl IV iron and sq EPO Titrate anti-failure rx - decrease for low range BP. No aspirin or anticoag rx; off NSAID's Topical abx IV magnesium repl and oral potassium rx as needed Will need to arrange hospital bed and other assist before can manage at home. Per , wants to defer colonscopy until hb improves further. Made aware of possible malignancy by Dr Deleon. Considering EUS and paracentesis in future as well. Yvan Encarnacion MD Jul 23, 2020 00:10
--- NOTE | 2020-07-23 00:33 | NUR ---
NURSE HAND-OFF REPORT: Important Events on Shift: NPO for Ab US tomorrow Patient Status: Stable Diet: NPO - CARDIAC Pending Orders: Pending Results/Labs: Pending MD notification: Y - [place] for Sleeping pill Latest Vital Signs: Temperature 98.0 , Pulse 61 , B/P 101 /57 , Respiratory Rate 16 , O2 SAT 97 , Nasal Cannula, O2 Flow Rate 2.0 . Vital Sign Comment: EKG Rhythm: A-Paced Rhythm change?: N MD Notified?: N - MD Response: Latest Munroe Fall Score: 50 Fall Risk: High Risk Safety Measures: Call light Within Reach, Bed Alarm Zone 1, Side Rails Side Rails x3, Bed position Low and Locked. Fall Precautions: Yellow Socks Yellow Gown Door Sign Patient Fall Education Report given to JENNIFER Hathaway
--- NOTE | 2020-07-23 00:35 | NUR ---
NURSE NOTES: Received pt and report from JENNIFER Johnson. Observed pt awake in bed. Pt is A/Ox3. equipment monitor phototypesetting is in placed; pt is A-paced (65 bpm). IV site intact, asymptomatic and patent; saline locked. Pt has been NPO since midnight for abdominal US scheduled for later today. Bed is in the lowest position and locked. Call light and bedside table is within reach. No signs/symptoms of acute distress noted. Will continue plan of care.
[2020-07-23 04:00] VITALS: BP 104/50
[2020-07-23 06:33] LABS: HEMATOCRIT 25.4 % (42.0-52.0); MEAN CORPUSCULAR VOLUME 84 FL (80-99); PLATELET COUNT 185 K/UL (150-450); RED BLOOD COUNT 3.04 M/UL (4.70-6.10); RED CELL DISTRIBUTION WIDTH 28.7 % (11.6-14.8); WHITE BLOOD COUNT 9.2 K/UL (4.8-10.8)
[2020-07-23 06:56] LABS: INR 1.3 (0.9-1.1)
[2020-07-23 06:57] LABS: ALBUMIN 2.7 G/DL (3.4-5.0); ALBUMIN/GLOBULIN RATIO 0.6 (1.0-2.7); BILIRUBIN,TOTAL 1.7 MG/DL (0.2-1.0); CALCIUM 10.8 MG/DL (8.5-10.1); CREATININE 1.9 MG/DL (0.55-1.30); POTASSIUM 4.5 MMOL/L (3.5-5.1)
[2020-07-23 06:58] LABS: BILIRUBIN,DIRECT 1.1 MG/DL (0.0-0.3)
--- NOTE | 2020-07-23 07:20 | NUR ---
NURSE NOTES: Pt received from Mag rn, pt in bed, no complaint of pain or sob. Bed low and locked call light within reach. pt NPO pending abdominal US.
--- NOTE | 2020-07-23 07:31 | NUR ---
NURSE HAND-OFF REPORT: Important Events on Shift: No significant changes. Pt has been NPO since midnight; awaiting for abdominal US. Patient Status: Stable Diet: NPO Pending Orders: ABD US Pending Results/Labs: AM Labs Pending MD notification: N Latest Vital Signs: Temperature 98.2 , Pulse 68 , B/P 104 /50 , Respiratory Rate 16 , O2 SAT 95 , Nasal Cannula, O2 Flow Rate 2.0 . EKG Rhythm: A-Paced Rhythm change?: N Latest Munroe Fall Score: 50 Fall Risk: High Risk Safety Measures: Call light Within Reach, Bed Alarm Zone 1, Side Rails Side Rails x3, Bed position Low and Locked. Fall Precautions: Yellow Socks Yellow Gown Door Sign Patient Fall Education Report given to JENNIFER Lazar.
[2020-07-23 08:00] VITALS: BP 103/51
[2020-07-23] MEDS: Amiodarone 200mg tab ORAL SCH (09:27)
[2020-07-23] MEDS: Tamsulosin 0.4mg cap ORAL SCH (09:27)
[2020-07-23] MEDS: Spironolactone 25mg tab ORAL SCH (09:27)
[2020-07-23] MEDS: Ascorbic Acid 500mg tab ORAL SCH ×2 (09:28→17:53)
[2020-07-23] MEDS: Furosemide 40mg tab ORAL SCH (09:28)
[2020-07-23] MEDS: HYDROcodone/Acetamin 5/325 tab ORAL PRN ×2 (10:27→21:17)
[2020-07-23 12:00] VITALS: BP 95/51
--- NOTE | 2020-07-23 12:14 | Diagnostic Imaging Report ---
Indication: Reason For Exam: SCREEN Technique: Grayscale and duplex images of the bilateral lower extremity veins Comparison: 06/25/2020 Findings: Bilaterally, grayscale and duplex images demonstrate no evidence of intraluminal thrombus. Normal phasic Doppler waveforms, demonstrating normal augmentation response and no evidence of valvular insufficiency. Greater saphenous vein(s) and visualized tibial veins are patent. Normal compressibility. IMPRESSION: Negative for evidence of lower extremity deep venous thrombosis bilaterally
--- NOTE | 2020-07-23 12:29 | Diagnostic Imaging Report ---
Indication: Abnormal pain. Abnormal renal function Technique: Multiplanar hamilton scale duplex Doppler imaging of the abdomen Comparison: 07/14/2020 Findings: Imaged portions of the pancreatic head grossly unremarkable. Main pancreatic duct in the region of the pancreatic head within the upper limits for normal caliber. The body and tail of pancreas not visualized. Imaged portions of the liver demonstrate homogeneous echogenicity. No discrete hepatic mass lesion is appreciated sonographically. Again there is dilatation of the intrahepatic IVC and hepatic veins. Imaged hepatic veins are patent. There is nonspecific thickening of the gallbladder wall. No discrete gallstones or gallbladder sludge is identified. There is persistent dilatation of the common bile duct which measures greater than 1 cm. Some mild central hepatic biliary duct dilatation is also noted. Kidneys demonstrate normal echogenicity. Bilateral cysts are noted with a very large cyst in the upper pole right kidney measuring approximately 8 cm. Screening unremarkable. Imaged portions of the abdominal aorta within the upper limits normal size. Note that the mid and distal abdominal aorta and aortic calcification are seen. Visualized osseous calcifications. Trace right pleural effusion is seen. IMPRESSION: * Trace right pleural effusion. * Distended intrahepatic IVC and hepatic veins suggesting central venous hypertension. Similar findings were noted previously. * Persistent dilatation of the common bile duct greater than 1 cm. Some mild central intrahepatic biliary ductal prominence is also seen. Similar findings were noted on the prior exam. Again, consider further evaluation with MRCP or ERCP as clinically indicated. * Portal vein patent but again similar to and fro flow, possibly related to portal hypertension. * Bilateral renal cysts * Nonspecific gallbladder wall thickening without appreciable gallstones or gallbladder sludge. Gallbladder wall thickening was seen previously. If there is history of right upper quadrant pain consider further evaluation with HIDA scan.
--- NOTE | 2020-07-23 14:12 | Surgery Progress Note ---
Surgery Progress Note Subjective Symptoms: improved, tolerating diet Objective Last 24 Hour Vital Signs Date Time Temp Pulse Resp B/P (MAP) Pulse Ox O2 Delivery O2 Flow Rate FiO2 07/23/20 12:00 97.5 20 95/51 (66) 96 07/23/20 12:00 64 07/23/20 10:57 97.7 07/23/20 09:00 Room Air 07/23/20 08:00 97.7 65 20 103/51 (68) 95 07/23/20 08:00 64 07/23/20 04:00 98.2 68 16 104/50 (68) 95 07/23/20 04:00 68 07/23/20 00:00 61 07/23/20 00:00 98.0 61 16 101/57 (72) 97 07/22/20 21:00 Room Air 07/22/20 20:54 97.9 07/22/20 20:00 60 07/22/20 20:00 98.0 62 20 107/51 (69) 95 07/22/20 15:50 97.9 60 20 110/50 (70) 93 07/22/20 15:43 60 I&O Intake and Output 07/22/20 07/23/20 19:00 07:00 Intake Total 730 ml Balance 730 ml Intake Oral 730 ml # Voids 4 6 Dressing: saturated Cardiovascular: RSR Respiratory: clear, decreased breath sounds Abdomen: soft, non-tender, present bowel sounds, non-distended Extremities: no edema, no tenderness, no cyanosis Laboratory Tests Test 07/23/20 06:22 White Blood Count 9.2 K/UL (4.8-10.8) Red Blood Count 3.04 M/UL (4.70-6.10) L Hemoglobin 7.0 G/DL (14.2-18.0) L Hematocrit 25.4 % (42.0-52.0) L Mean Corpuscular Volume 84 FL (80-99) Mean Corpuscular Hemoglobin 23.0 PG (27.0-31.0) L Mean Corpuscular Hemoglobin Concent 27.5 G/DL (32.0-36.0) L Red Cell Distribution Width 28.7 % (11.6-14.8) H Platelet Count 185 K/UL (150-450) Mean Platelet Volume 4.8 FL (6.5-10.1) L Neutrophils (%) (Auto) % (45.0-75.0) Lymphocytes (%) (Auto) % (20.0-45.0) Monocytes (%) (Auto) % (1.0-10.0) Eosinophils (%) (Auto) % (0.0-3.0) Basophils (%) (Auto) % (0.0-2.0) Differential Total Cells Counted 100 Neutrophils % (Manual) 76 % (45-75) H Lymphocytes % (Manual) 15 % (20-45) L Monocytes % (Manual) 5 % (1-10) Eosinophils % (Manual) 1 % (0-3) Basophils % (Manual) 0 % (0-2) Band Neutrophils 3 % (0-8) Platelet Estimate Adequate Platelet Morphology Normal Polychromasia Occasional Hypochromasia 2+ Anisocytosis 3+ Schistocytes 3+ Erythrocyte Sedimentation Rate 38 MM/HR (0-20) H Prothrombin Time 13.9 SEC (9.30-11.50) H Prothromb Time International Ratio 1.3 (0.9-1.1) H Activated Partial Thromboplast Time 27 SEC (23-33) Sodium Level 140 MMOL/L (136-145) Potassium Level 4.5 MMOL/L (3.5-5.1) Chloride Level 106 MMOL/L (98-107) Carbon Dioxide Level 28 MMOL/L (21-32) Anion Gap 6 mmol/L (5-15) Blood Urea Nitrogen 39 mg/dL (7-18) H Creatinine 1.9 MG/DL (0.55-1.30) H Estimat Glomerular Filtration Rate 41.1 mL/min (>60) Glucose Level 96 MG/DL (74-106) Lactic Acid Level 0.80 mmol/L (0.4-2.0) Calcium Level 10.8 MG/DL (8.5-10.1) H Total Bilirubin 1.7 MG/DL (0.2-1.0) H Direct Bilirubin 1.1 MG/DL (0.0-0.3) H Aspartate Amino Transf (AST/SGOT) 32 U/L (15-37) Alanine Aminotransferase (ALT/SGPT) 21 U/L (12-78) Alkaline Phosphatase 81 U/L (46-116) C-Reactive Protein, Quantitative 0.9 mg/dL (0.00-0.90) Total Protein 7.0 G/DL (6.4-8.2) Albumin 2.7 G/DL (3.4-5.0) L Globulin 4.3 g/dL Albumin/Globulin Ratio 0.6 (1.0-2.7) L Prealbumin Pending Amylase Level 38 U/L (25-115) Lipase 118 U/L (73-393) Plan Problems: (1) Anemia (2) Chronic obstructive pulmonary disease (3) Sacral decubitus ulcer Assessment & Plan: Pt presented on admission with multiple Pressure Injuries. Sacral Pressure Injury resolving(L)1.5cm x (W)0.5cm. Base of wound is pink with maceration. Multiple Ulcerations at base of Scrotum . Wounds are resolving(#1) Full thickness Pressure Injury base of wound resolving. Base of wound is 50% mihai 50% pink epithelial(L)2cm x (W)1.2cm. Edges are adherent to base of wound. NO exudate noted. (#2)Wound R testicle resolving. [place] epithelial at base of wound. No exudate noted (L)2cm x (W)1.2cm. (#3)Wound that is proximally to above documented wounds is also resolving(L)1cm x (W)1cm. Base of wound is 25% mihai ,75% surrounding pink epithelial.. L Heel has resolved. Heel is boggy but blanchable and non-tender when palpated R heel has resolved. R heel is boggy but blanchable and non-tender when palpated. Pt is frequently and heavily incontinent of Bladder. place urinary pouch to minimize further skin breakdown from incontinence. Pt is well endowed and unable to place urinary pouch. Ok to improvise with Fecal pouch to contain incontinence. Fecal pouch in place and attached to drainage bag. DAILY ESTIMATED NEEDS: Needs based on Cardiac, wound 88kg abw 25-35 kcals/kg [id number] total kcals 1.25-1.5 g protein/kg 110-132 g total protein Fluid per MD, on lasix NUTRITION DIAGNOSIS: Increased kcal and pro needs r/t wound healing as evidenced by w/ full thickness scrotal wound, refer to full wound care eval. CURRENT DIET:CARDIAC PO DIET RECOMMENDATIONS: Liberalized Regular diet/ texture as tolerated w/ variable po intake ADDITIONAL RECOMMENDATIONS: 1) CALIBRATED BED SCALE wt 2) On lasix and aldactone, monitor lytes daily 3) Ensure Enlive TID w/ meals 4) [employer] INS[employer]OR eval for appropriate texture 5) WOUND CARE: continue MVI and Vit C KELLEY BID added to tray Pt presented on admission with multiple Scrotal Pressure injuries. Wounds are resolving.(#1)Wound at base of Scrotum is superficial with re-epithelialization. NO exudate noted. Edges are adherent to base of wound(L)1.5cm x (W)0.9cm. #2 Wound R testicle (proximally)is resolving. Base of wound is superficial with re-epithelialization.(L)1cm x (W)0.4cm. (#3)Wound R testicle(distally) resolving . Base of wound is superficial, pink with re-epithelialization. edges are adherent to base of wound.(L)1cm x (W)1cm. Small callused area at landen cleft noted(L)1cm x (W)0.5cm. Pt complained site is tender when minimally palpated or when he lies on his back.No erythema fluctuance or induration to surrounding sacrum.Pt confirmed Hx of having Pressure ulcer at source of callusing. R heel is boggy but blanchable. L Heel is boggy with non-blanchable erythema with delineated margins(L)4.5cm x (W)7.5cm.Tender when minimally palpated. Tx.Plan: Apply Moisture Barrier Paste to Scrotal Ulcers. Cover with Optifoam drsg. Change every 3 days and prn. Please cover Scrotal wounds with Optifoam to minimize friction. Apply Moisture Barrier Paste to Sacrum. Cover with Optifoam drsg. Change every 3 days and prn. Apply Cavilon Skin Barrier to Both heels. Cover each heel with Optifoam drsg. Change every 7 days and prn. Reposition at least every 2hours or as tolerated. Off-load heels with Pillow. 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 (16) Hemoptysis (17) Stroke (18) COPD exacerbation (19) Acute exacerbation of CHF (congestive heart failure) (20) Epistaxis (21) Ascites Assessment & Plan: now onset h/h stable lfts noted cea/ca 19-9 elevated no n/v para planned Erlin Kearns Jul 23, 2020 14:12
--- NOTE | 2020-07-23 14:13 | General Progress Note ---
Subjective ROS Limited/Unobtainable: No Constitutional: Reports: malaise, weakness HEENT: Reports: no symptoms Cardiovascular: Reports: edema Respiratory: Reports: no symptoms Gastrointestinal/Abdominal: Reports: poor appetite, poor fluid intake Neurologic/Psychiatric: Reports: no symptoms Endocrine: Reports: no symptoms Hematologic/Lymphatic: Reports: anemia Allergies: Coded Allergies: No Known Allergies (Verified , 01/23/09) All Systems: reviewed and negative except above Subjective no events. stable h/h. wants to go home. surgery noted. family wants to hold off on colonoscopy for now. no reports of bleeding. no fevers or chills. Objective Last 24 Hour Vital Signs Date Time Temp Pulse Resp B/P (MAP) Pulse Ox O2 Delivery O2 Flow Rate FiO2 07/23/20 12:00 97.5 20 95/51 (66) 96 07/23/20 12:00 64 07/23/20 10:57 97.7 07/23/20 09:00 Room Air 07/23/20 08:00 97.7 65 20 103/51 (68) 95 07/23/20 08:00 64 07/23/20 04:00 98.2 68 16 104/50 (68) 95 07/23/20 04:00 68 07/23/20 00:00 61 07/23/20 00:00 98.0 61 16 101/57 (72) 97 07/22/20 21:00 Room Air 07/22/20 20:54 97.9 07/22/20 20:00 60 07/22/20 20:00 98.0 62 20 107/51 (69) 95 07/22/20 15:50 97.9 60 20 110/50 (70) 93 07/22/20 15:43 60 Intake and Output 07/22/20 07/23/20 19:00 07:00 Intake Total 730 ml Balance 730 ml Intake Oral 730 ml # Voids 4 6 Laboratory Tests 07/23/20 06:22: White Blood Count 9.2, Red Blood Count 3.04L, Hemoglobin 7.0L, Hematocrit 25.4L, Mean Corpuscular Volume 84, Mean Corpuscular Hemoglobin 23.0L, Mean Corpuscular Hemoglobin Concent 27.5L, Red Cell Distribution Width 28.7H, Platelet Count 185, Mean Platelet Volume 4.8L, Neutrophils (%) (Auto) , Lymphocytes (%) (Auto) , Monocytes (%) (Auto) , Eosinophils (%) (Auto) , Basophils (%) (Auto) , Differential Total Cells Counted 100, Neutrophils % (Manual) 76H, Lymphocytes % (Manual) 15L, Monocytes % (Manual) 5, Eosinophils % (Manual) 1, Basophils % (Manual) 0, Band Neutrophils 3, Platelet Estimate Adequate, Platelet Morphology Normal, Polychromasia Occasional, Hypochromasia 2+, Anisocytosis 3+, Schistocytes 3+, Erythrocyte Sedimentation Rate 38H, Prothrombin Time 13.9H, Prothromb Time International Ratio 1.3H, Activated Partial Thromboplast Time 27, Sodium Level 140, Potassium Level 4.5, Chloride Level 106, Carbon Dioxide Level 28, Anion Gap 6, Blood Urea Nitrogen 39H, Creatinine 1.9H, Estimat Glomerular Filtration Rate 41.1, Glucose Level 96, Lactic Acid Level 0.80, Calcium Level 10.8H, Total Bilirubin 1.7H, Direct Bilirubin 1.1H, Aspartate Amino Transf (AST/SGOT) 32, Alanine Aminotransferase (ALT/SGPT) 21, Alkaline Phosphatase 81, C-Reactive Protein, Quantitative 0.9, Total Protein 7.0, Albumin 2.7L, Globulin 4.3, Albumin/Globulin Ratio 0.6L, Prealbumin [Pending], Amylase Level 38, Lipase 118 Height (Feet): 6 Height (Inches): 1.00 Weight (Pounds): 180 Objective General Appearance: WD/WN, alert, confused EENT: normal ENT inspection Neck: normal alignment, supple Cardiovascular: normal rate, regular rhythm Respiratory/Chest: chest wall non-tender, lungs clear, normal breath sounds, no respiratory distress, no accessory muscle use Abdomen: normal bowel sounds, non tender, soft, no organomegaly Edema: 3+ Pedal (L), 3+ Pedal (R) Edema: severe edema Neurologic: thread 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 II-XII 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, alert, responsive Skin: normal pigmentation, warm/dry Assessment/Plan Problem List: (1) Acute exacerbation of CHF (congestive heart failure) (2) Swelling of lower extremity ICD Codes: M79.89 - Other specified soft tissue disorders SNOMED: 546437179, 563711018 (3) Orthopnea (4) CHF (congestive heart failure) ICD Codes: I50.9 - CHF (congestive heart failure) SNOMED: 02480523 (5) Atrial fibrillation ICD Codes: I48.91 - Atrial fibrillation SNOMED: 89508262 (6) Anemia ICD Codes: D64.9 - Anemia, unspecified SNOMED: 885066210 (7) Elevated troponin ICD Codes: R74.8 - Elevated troponin SNOMED: 225164285 Status: stable, progressing Assessment/Plan: cont iron replacement and high dose epo qod monitor h/h monitor for bleeding PPI rx tfts nml elevated legs turn q2 pt/ot po lasix amio colonsocopy as output paracentesis per surgery d/w annette- can accept pt tuesday. still getting his room/dme prepared Sumit Hallman MD Jul 23, 2020 14:13
[2020-07-23 16:00] VITALS: BP 107/53
--- NOTE | 2020-07-23 19:18 | Cardiology Progress Note ---
Subjective DATE OF SERVICE: Jul 23, 2020 No new distress. CA 19-9 elevated. Hemoglobin improved - venofer was resumed 6 days ago. EGD completed 07/11/20 without complication; no bleeding source found. Small bowel series (07/15/20) normal. No CP. No SOB in bedbound state or with limited mobilization. No N/V/D or pain. Appetite fair. Needs almost total assist with care. Objective Last 24 Hour Vital Signs Date Time Temp Pulse Resp B/P (MAP) Pulse Ox O2 Delivery O2 Flow Rate FiO2 07/23/20 16:00 97.5 20 107/53 (71) 96 07/23/20 16:00 62 07/23/20 12:00 97.5 20 95/51 (66) 96 07/23/20 12:00 64 07/23/20 10:57 97.7 07/23/20 09:00 Room Air 07/23/20 08:00 97.7 65 20 103/51 (68) 95 07/23/20 08:00 64 07/23/20 04:00 98.2 68 16 104/50 (68) 95 07/23/20 04:00 68 07/23/20 00:00 61 07/23/20 00:00 98.0 61 16 101/57 (72) 97 07/22/20 21:00 Room Air 07/22/20 20:54 97.9 07/22/20 20:00 60 07/22/20 20:00 98.0 62 20 107/51 (69) 95 HEENT: normal ENT inspection RHYTHM: Afib, other - demand Ventric pacing LUNGS: diminished breath sounds CARDIAC: normal rate, normal S1 and S2, irregularly irregular, systolic murmur - 1/6 apical systolic murmur ABDOMEN: normal bowel sounds EXTREMITIES: normal range of motion, +3 edema Laboratory Tests Test 07/23/20 06:22 White Blood Count 9.2 K/UL (4.8-10.8) Red Blood Count 3.04 M/UL (4.70-6.10) L Hemoglobin 7.0 G/DL (14.2-18.0) L Hematocrit 25.4 % (42.0-52.0) L Mean Corpuscular Volume 84 FL (80-99) Mean Corpuscular Hemoglobin 23.0 PG (27.0-31.0) L Mean Corpuscular Hemoglobin Concent 27.5 G/DL (32.0-36.0) L Red Cell Distribution Width 28.7 % (11.6-14.8) H Platelet Count 185 K/UL (150-450) Mean Platelet Volume 4.8 FL (6.5-10.1) L Neutrophils (%) (Auto) % (45.0-75.0) Lymphocytes (%) (Auto) % (20.0-45.0) Monocytes (%) (Auto) % (1.0-10.0) Eosinophils (%) (Auto) % (0.0-3.0) Basophils (%) (Auto) % (0.0-2.0) Differential Total Cells Counted 100 Neutrophils % (Manual) 76 % (45-75) H Lymphocytes % (Manual) 15 % (20-45) L Monocytes % (Manual) 5 % (1-10) Eosinophils % (Manual) 1 % (0-3) Basophils % (Manual) 0 % (0-2) Band Neutrophils 3 % (0-8) Platelet Estimate Adequate Platelet Morphology Normal Polychromasia Occasional Hypochromasia 2+ Anisocytosis 3+ Schistocytes 3+ Erythrocyte Sedimentation Rate 38 MM/HR (0-20) H Prothrombin Time 13.9 SEC (9.30-11.50) H Prothromb Time International Ratio 1.3 (0.9-1.1) H Activated Partial Thromboplast Time 27 SEC (23-33) Sodium Level 140 MMOL/L (136-145) Potassium Level 4.5 MMOL/L (3.5-5.1) Chloride Level 106 MMOL/L (98-107) Carbon Dioxide Level 28 MMOL/L (21-32) Anion Gap 6 mmol/L (5-15) Blood Urea Nitrogen 39 mg/dL (7-18) H Creatinine 1.9 MG/DL (0.55-1.30) H Estimat Glomerular Filtration Rate 41.1 mL/min (>60) Glucose Level 96 MG/DL (74-106) Lactic Acid Level 0.80 mmol/L (0.4-2.0) Calcium Level 10.8 MG/DL (8.5-10.1) H Total Bilirubin 1.7 MG/DL (0.2-1.0) H Direct Bilirubin 1.1 MG/DL (0.0-0.3) H Aspartate Amino Transf (AST/SGOT) 32 U/L (15-37) Alanine Aminotransferase (ALT/SGPT) 21 U/L (12-78) Alkaline Phosphatase 81 U/L (46-116) C-Reactive Protein, Quantitative 0.9 mg/dL (0.00-0.90) Total Protein 7.0 G/DL (6.4-8.2) Albumin 2.7 G/DL (3.4-5.0) L Globulin 4.3 g/dL Albumin/Globulin Ratio 0.6 (1.0-2.7) L Prealbumin Pending Amylase Level 38 U/L (25-115) Lipase 118 U/L (73-393) Assessment/Plan Assessment/Plan Severe anemia with iron deficiency GI bleed Jehovahs witness Ac/chr diastolic CHF now compensated PAFib Pacemaker Hx thoracic aorta repair Elev LFT's may be due to passive congestion COPD Conjunctivitis Abd pain Ac/chr renal failure - improved Orthostatic risk Hypomagnesemia Continue IV iron. Tumor markers pending (CEA/Ca19-9) Continue hydrocodone prn for back pain and CROSS Diuresis adjustment based on clinical status. O2 suppl IV iron and sq EPO Titrate anti-failure rx - decrease for low range BP. No aspirin or anticoag rx; off NSAID's Topical abx IV magnesium repl and oral potassium rx as needed Will need to arrange hospital bed and other assist before can manage at home. Per , wants to defer colonscopy until hb improves further. Made aware of possible malignancy by Dr Deleon. Considering EUS and paracentesis in future as well. DC plan home next 24hrs. Yvan Encarnacion MD Jul 23, 2020 19:18
--- NOTE | 2020-07-23 19:18 | NUR ---
NURSE HAND-OFF REPORT: Important Events on Shift:[No remarkable events] Patient Status: [Full code] Diet: [Mechanical soft fine chopped] Pending Orders: [] Pending Results/Labs:[] Pending MD notification:[Please ask Dr. Deleon for laxative] Latest Vital Signs: Temperature 97.5 , Pulse 62 , B/P 107 /53 , Respiratory Rate 20 , O2 SAT 96 , Nasal Cannula, O2 Flow Rate 2.0 . Vital Sign Comment: [] EKG Rhythm: Sinus Rhythm Rhythm change?: N MD Notified?: N - MD Response: Latest Munroe Fall Score: 50 Fall Risk: High Risk Safety Measures: Call light Within Reach, Bed Alarm Zone 1, Side Rails Side Rails x3, Bed position Low and Locked. Fall Precautions: Yellow Socks Yellow Gown Door Sign Patient Fall Education Report given to [Mercedes Snow RN].
--- NOTE | 2020-07-23 19:20 | NUR ---
NURSE NOTES: Important Events on Shift: Received report from Cady Harman RN. Pt in bed, asleep, appears to be resting comfortably. No signs or symptoms of pain or distress noted at this time. Will continue plan of care and close monitoring. Patient Status: full code Diet: cardiac, Mech soft chopped Pending Orders: none Pending Results/Labs: none Pending MD notification: none Latest Vital Signs: Temperature 98.3 , Pulse 61 , B/P 108 /61 , Respiratory Rate 20 , O2 SAT 97 , Nasal Cannula, O2 Flow Rate 2.0 . Vital Sign Comment: Per report, stable throughout shift. EKG Rhythm: A-Paced Rhythm change?: N MD Notified?: N - MD Response: Latest Munroe Fall Score: 50 Fall Risk: High Risk Safety Measures: Call light Within Reach, Bed Alarm Zone 1, Side Rails Side Rails x3, Bed position Low and Locked. Fall Precautions: Yellow Socks, Yellow Gown, Door Sign, Patient Fall Education
--- NOTE | 2020-07-23 19:50 | General Progress Note ---
Subjective Allergies: Coded Allergies: No Known Allergies (Verified , 01/23/09) Subjective no new complaints no abdominal complaints wants to go home d/w again re suspicion of cancer, given clinical findings advised this would be a very poor prognosis issue states she will consider hospice care if patient continues to decline in health Objective Last 24 Hour Vital Signs Date Time Temp Pulse Resp B/P (MAP) Pulse Ox O2 Delivery O2 Flow Rate FiO2 07/23/20 16:00 97.5 20 107/53 (71) 96 07/23/20 16:00 62 07/23/20 12:00 97.5 20 95/51 (66) 96 07/23/20 12:00 64 07/23/20 10:57 97.7 07/23/20 09:00 Room Air 07/23/20 08:00 97.7 65 20 103/51 (68) 95 07/23/20 08:00 64 07/23/20 04:00 98.2 68 16 104/50 (68) 95 07/23/20 04:00 68 07/23/20 00:00 61 07/23/20 00:00 98.0 61 16 101/57 (72) 97 07/22/20 21:00 Room Air 07/22/20 20:54 97.9 07/22/20 20:00 60 07/22/20 20:00 98.0 62 20 107/51 (69) 95 Intake and Output 07/22/20 07/23/20 19:00 07:00 Intake Total 730 ml Balance 730 ml Intake Oral 730 ml # Voids 4 6 Laboratory Tests 07/23/20 06:22: White Blood Count 9.2, Red Blood Count 3.04L, Hemoglobin 7.0L, Hematocrit 25.4L, Mean Corpuscular Volume 84, Mean Corpuscular Hemoglobin 23.0L, Mean Corpuscular Hemoglobin Concent 27.5L, Red Cell Distribution Width 28.7H, Platelet Count 185, Mean Platelet Volume 4.8L, Neutrophils (%) (Auto) , Lymphocytes (%) (Auto) , Monocytes (%) (Auto) , Eosinophils (%) (Auto) , Basophils (%) (Auto) , Differential Total Cells Counted 100, Neutrophils % (Manual) 76H, Lymphocytes % (Manual) 15L, Monocytes % (Manual) 5, Eosinophils % (Manual) 1, Basophils % (Manual) 0, Band Neutrophils 3, Platelet Estimate Adequate, Platelet Morphology Normal, Polychromasia Occasional, Hypochromasia 2+, Anisocytosis 3+, Schistocytes 3+, Erythrocyte Sedimentation Rate 38H, Prothrombin Time 13.9H, Prothromb Time International Ratio 1.3H, Activated Partial Thromboplast Time 27, Sodium Level 140, Potassium Level 4.5, Chloride Level 106, Carbon Dioxide Level 28, Anion Gap 6, Blood Urea Nitrogen 39H, Creatinine 1.9H, Estimat Glomerular Filtration Rate 41.1, Glucose Level 96, Lactic Acid Level 0.80, Calcium Level 10.8H, Total Bilirubin 1.7H, Direct Bilirubin 1.1H, Aspartate Amino Transf (AST/SGOT) 32, Alanine Aminotransferase (ALT/SGPT) 21, Alkaline Phosphatase 81, C-Reactive Protein, Quantitative 0.9, Total Protein 7.0, Albumin 2.7L, Globulin 4.3, Albumin/Globulin Ratio 0.6L, Prealbumin [Pending], Amylase Level 38, Lipase 118 Height (Feet): 6 Height (Inches): 1.00 Weight (Pounds): 180 Objective WDWN NCAT supple CTA RRR abd soft NT, but distended trace edema Assessment/Plan Status: stable, progressing Assessment/Plan: Assessment - Iron deficiency anemia - negative EGD - unable to order capsule endoscopy - SBFT normal - worsening H&H despite FE and EPO concerning ---> consider heme opinion (also for elevated CEA and CA19-9) - Loren, declines transfusion - lower abdominal TTP, ? etiology - resolved - New Ascites - ? due to (R) sided CHF - r/o malignancy - will consider paracentesis once H&H higher - Elevated Bilirubin - ? due to passive congestion - biliary ductal dilation, r/o downstream obstruction - Cannot order MRCP due to pacer --> will need EUS - Check CEA and CA 19-9 - both elevated - b/l edema and anasarca - azotemia - improved - CHF - COPD - CHF Recommendations - EPO - IV Iron - re check stool OB --> now negative - PPI - Consider Heme-Onc opinion - Pending studies to consider: - colonoscopy - EUS - once Hg 7.0 - paracentesis - to contact medical team in 1 month to remind re-evaluation - OK for d/c from GI standpoint Khorrami,Payman MD Jul 23, 2020 19:50
[2020-07-23 20:00] VITALS: BP 108/61
[2020-07-23] MEDS: Epoetin Alfa-EPBX (NON ESRD) 2000 units/ml vial SUBQ SCH (20:55)
[2020-07-23] MEDS: Epoetin Alfa-EPBX (NON ESRD)10,000 unit/ml vial SUBQ SCH (20:55)
[2020-07-23] MEDS: Iron Sucrose 100 MG in NS 55 ML IVPB SCH (20:56)
[2020-07-23] MEDS: Atorvastatin 20mg tab ORAL SCH (20:56)
[2020-07-24] VITALS: BP 113/57
[2020-07-24 03:38] VITALS: BP 109/55
--- NOTE | 2020-07-24 06:55 | NUR ---
NURSE HAND-OFF REPORT: Important Events on Shift: None Patient Status: full code Diet: cardiac mech chopped soft Pending Orders: none Pending Results/Labs: none Pending MD notification: none Latest Vital Signs: Temperature 98.2 , Pulse 60 , B/P 109 /55 , Respiratory Rate 20 , O2 SAT 96 , Nasal Cannula, O2 Flow Rate 2.0 . Vital Sign Comment: EKG Rhythm: SR 1AVB Rhythm change?: N MD Notified?: N - MD Response: Latest Munroe Fall Score: 50 Fall Risk: High Risk Safety Measures: Call light Within Reach, Bed Alarm Zone 1, Side Rails Side Rails x3, Bed position Low and Locked. Fall Precautions: Yellow Socks, Yellow Gown, Door Sign, Patient Fall Education Report to be given to Christina Vallejo RN. Plan of care and close monitoring to be endorsed to next shift.
--- NOTE | 2020-07-24 07:15 | NUR ---
NURSE NOTES: Received report from Kailyn/JENNIFER, Observed patient awake, lying semi-thompson's in bed, resting comfortably. On room air, no acute distress/ SOB noted. Able to make needs known, Denies pain at this time. Bed in low position and locked, Call light within reach. Encourage to use call light when needed. Will continue plan of care.
[2020-07-24 08:00] VITALS: BP 97/48
[2020-07-24] MEDS: Spironolactone 25mg tab ORAL SCH (08:47)
[2020-07-24] MEDS: Amiodarone 200mg tab ORAL SCH (08:47)
[2020-07-24] MEDS: Furosemide 40mg tab ORAL SCH (08:47)
[2020-07-24] MEDS: Tamsulosin 0.4mg cap ORAL SCH (08:47)
[2020-07-24] MEDS: Ascorbic Acid 500mg tab ORAL SCH ×2 (08:47→17:09)
[2020-07-24] MEDS: HYDROcodone/Acetamin 5/325 tab ORAL PRN ×2 (08:48→20:10)
[2020-07-24 12:00] VITALS: BP 122/56
--- NOTE | 2020-07-24 12:08 | NUR ---
RD ASSESSMENT & RECOMMENDATIONS SEE CARE ACTIVITY FOR COMPLETE ASSESSMENT DAILY ESTIMATED NEEDS: Needs based on Cardiac, wound 88kg abw 25-35 kcals/kg 3061-1067 total kcals 1.25-1.5 g protein/kg 110-132 g total protein Fluid per MD, on lasix NUTRITION DIAGNOSIS: Increased kcal and pro needs r/t wound healing as evidenced by w/ full thickness scrotal wound, refer to full wound care eval. CURRENT DIET:CARDIAC, now ms finely chopped + Ensure Enlive x6 daily PO DIET RECOMMENDATIONS: Liberalized Regular diet/ texture as tolerated w/ variable po intake ENTERAL NUTRITION RECOMMENDATIONS: Non oral feed if part of POC w/ continued poor po intake ADDITIONAL RECOMMENDATIONS: 1) CALIBRATED BED SCALE wt 2) On lasix and aldactone, monitor lytes daily 3) w/ con't poor po-> Ensure Enlive x6 daily, 2 w/ meals Total of 2100 kcal, 120g pro 4) WOUND CARE: continue MVI and Vit C KELLEY BID added to tray 5) PLANT PROTECTION SUPERVISOR eval for appropriate texture
--- NOTE | 2020-07-24 12:19 | Surgery Progress Note ---
Surgery Progress Note Subjective Additional Comments gi note reviewed input appreciated wifes input noted ? hospice if declines Objective Last 24 Hour Vital Signs Date Time Temp Pulse Resp B/P (MAP) Pulse Ox O2 Delivery O2 Flow Rate FiO2 07/24/20 12:00 60 07/24/20 09:00 Room Air 07/24/20 08:00 63 07/24/20 08:00 97.7 61 20 97/48 (64) 96 07/24/20 04:00 60 07/24/20 03:38 98.2 63 20 109/55 (73) 96 07/24/20 00:00 97.8 62 20 113/57 (75) 97 07/24/20 00:00 61 07/23/20 21:47 98.3 07/23/20 21:00 Room Air 07/23/20 20:00 98.3 20 108/61 (77) 97 07/23/20 20:00 61 07/23/20 16:00 97.5 20 107/53 (71) 96 07/23/20 16:00 62 I&O Intake and Output 07/23/20 07/24/20 19:00 07:00 Intake Total 600 ml Balance 600 ml Intake Oral 600 ml # Voids 3 3 Dressing: saturated Cardiovascular: RSR Respiratory: decreased breath sounds Abdomen: soft, flat, non-tender, present bowel sounds, non-distended Extremities: no edema, no tenderness, no cyanosis Plan Problems: (1) Anemia (2) Chronic obstructive pulmonary disease (3) Sacral decubitus ulcer Assessment & Plan: Pt presented on admission with multiple Pressure Injuries. Sacral Pressure Injury resolving(L)1.5cm x (W)0.5cm. Base of wound is pink with maceration. Multiple Ulcerations at base of Scrotum . Wounds are resolving(#1) Full thickness Pressure Injury base of wound resolving. Base of wound is 50% mihai 50% pink epithelial(L)2cm x (W)1.2cm. Edges are adherent to base of wound. NO exudate noted. (#2)Wound R testicle resolving. [place] epithelial at base of wound. No exudate noted (L)2cm x (W)1.2cm. (#3)Wound that is proximally to above documented wounds is also resolving(L)1cm x (W)1cm. Base of wound is 25% mihai ,75% surrounding pink epithelial.. L Heel has resolved. Heel is boggy but blanchable and non-tender when palpated R heel has resolved. R heel is boggy but blanchable and non-tender when palpated. Pt is frequently and heavily incontinent of Bladder. place urinary pouch to minimize further skin breakdown from incontinence. Pt is well endowed and unable to place urinary pouch. Ok to improvise with Fecal pouch to contain incontinence. Fecal pouch in place and attached to drainage bag. DAILY ESTIMATED NEEDS: Needs based on Cardiac, wound 88kg abw 25-35 kcals/kg 6970-3934 total kcals 1.25-1.5 g protein/kg 110-132 g total protein Fluid per MD, on lasix NUTRITION DIAGNOSIS: Increased kcal and pro needs r/t wound healing as evidenced by w/ full thickness scrotal wound, refer to full wound care eval. CURRENT DIET:CARDIAC PO DIET RECOMMENDATIONS: Liberalized Regular diet/ texture as tolerated w/ variable po intake ADDITIONAL RECOMMENDATIONS: 1) CALIBRATED BED SCALE wt 2) On lasix and aldactone, monitor lytes daily 3) Ensure Enlive TID w/ meals 4) TARIFF COUNSEL eval for appropriate texture 5) WOUND CARE: continue MVI and Vit C KELLEY BID added to tray Pt presented on admission with multiple Scrotal Pressure injuries. Wounds are resolving.(#1)Wound at base of Scrotum is superficial with re-epithelialization. NO exudate noted. Edges are adherent to base of wound(L)1.5cm x (W)0.9cm. #2 Wound R testicle (proximally)is resolving. Base of wound is superficial with re-epithelialization.(L)1cm x (W)0.4cm. (#3)Wound R testicle(distally) resolving . Base of wound is superficial, pink with re-epithelialization. edges are adherent to base of wound.(L)1cm x (W)1cm. Small callused area at landen cleft noted(L)1cm x (W)0.5cm. Pt complained site is tender when minimally palpated or when he lies on his back.No erythema fluctuance or induration to surrounding sacrum.Pt confirmed Hx of having Pressure ulcer at source of callusing. R heel is boggy but blanchable. L Heel is boggy with non-blanchable erythema with delineated margins(L)4.5cm x (W)7.5cm.Tender when minimally palpated. Tx.Plan: Apply Moisture Barrier Paste to Scrotal Ulcers. Cover with Optifoam drsg. Change every 3 days and prn. Please cover Scrotal wounds with Optifoam to minimize friction. Apply Moisture Barrier Paste to Sacrum. Cover with Optifoam drsg. Change every 3 days and prn. Apply Cavilon Skin Barrier to Both heels. Cover each heel with Optifoam drsg. Change every 7 days and prn. Reposition at least every 2hours or as tolerated. Off-load heels with Pillow. 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 (16) Hemoptysis (17) Stroke (18) COPD exacerbation (19) Acute exacerbation of CHF (congestive heart failure) (20) Epistaxis (21) Ascites Assessment & Plan: now onset h/h stable lfts noted cea/ca 19-9 elevated no n/v para planned gi note reviewed input appreciated wifes input noted ? hospice if declines Erlin Kearns Jul 24, 2020 12:18
[2020-07-24 16:00] VITALS: BP 106/49
--- NOTE | 2020-07-24 16:52 | General Progress Note ---
Subjective ROS Limited/Unobtainable: No Constitutional: Reports: malaise, weakness HEENT: Reports: no symptoms Cardiovascular: Reports: no symptoms Respiratory: Reports: cough Gastrointestinal/Abdominal: Reports: difficulty swallowing, poor appetite Genitourinary: Reports: no symptoms Neurologic/Psychiatric: Reports: no symptoms Endocrine: Reports: no symptoms Hematologic/Lymphatic: Reports: anemia Allergies: Coded Allergies: No Known Allergies (Verified , 01/23/09) All Systems: reviewed and negative except above Subjective no events. stable h/h. wants to go home. surgery noted. family wants to hold off on colonoscopy for now. no reports of bleeding. no fevers or chills. can take pt home tomorrow Objective Last 24 Hour Vital Signs Date Time Temp Pulse Resp B/P (MAP) Pulse Ox O2 Delivery O2 Flow Rate FiO2 07/24/20 16:00 97.7 60 20 106/49 (68) 98 07/24/20 16:00 60 07/24/20 12:00 60 07/24/20 12:00 97.9 60 18 122/56 (78) 97 07/24/20 09:00 Room Air 07/24/20 08:00 63 07/24/20 08:00 97.7 61 20 97/48 (64) 96 07/24/20 04:00 60 07/24/20 03:38 98.2 63 20 109/55 (73) 96 07/24/20 00:00 97.8 62 20 113/57 (75) 97 07/24/20 00:00 61 07/23/20 21:47 98.3 07/23/20 21:00 Room Air 07/23/20 20:00 98.3 20 108/61 (77) 97 07/23/20 20:00 61 Intake and Output 07/23/20 07/24/20 19:00 07:00 Intake Total 600 ml Balance 600 ml Intake Oral 600 ml # Voids 3 3 Height (Feet): 6 Height (Inches): 1.00 Weight (Pounds): 180 Objective General Appearance: WD/WN, alert, confused EENT: normal ENT inspection Neck: normal alignment, supple Cardiovascular: normal rate, regular rhythm Respiratory/Chest: chest wall non-tender, lungs clear, normal breath sounds, no respiratory distress, no accessory muscle use Abdomen: normal bowel sounds, non tender, soft, no organomegaly Edema: 3+ Pedal (L), 3+ Pedal (R) Edema: severe edema Neurologic: [place] II-XII 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, alert, responsive Skin: normal pigmentation, warm/dry Assessment/Plan Problem List: (1) Acute exacerbation of CHF (congestive heart failure) (2) Swelling of lower extremity ICD Codes: M79.89 - Other specified soft tissue disorders SNOMED: 517760693, 631560381 (3) Orthopnea (4) CHF (congestive heart failure) ICD Codes: I50.9 - CHF (congestive heart failure) SNOMED: 06815188 (5) Atrial fibrillation ICD Codes: I48.91 - Atrial fibrillation SNOMED: 23055944 (6) Anemia ICD Codes: D64.9 - Anemia, unspecified SNOMED: 380613676 (7) Elevated troponin ICD Codes: R74.8 - Elevated troponin SNOMED: 482700034 Status: stable, progressing Assessment/Plan: cont iron replacement and high dose epo qod monitor h/h monitor for bleeding PPI rx tfts nml elevated legs turn q2 pt/ot po lasix amio colonsocopy as output paracentesis per surgery d/w annette- can accept pt tuesday. still getting his room/dme prepared Sumit Hallman MD Jul 24, 2020 16:52
--- NOTE | 2020-07-24 19:10 | NUR ---
NURSE HAND-OFF REPORT: Important Events on Shift:Wound care provided with wound care nurse Patient Status: Full code Diet: Cardiac Pending Orders: N/A Pending Results/Labs:N/A Pending MD notification:N/A Latest Vital Signs: Temperature 97.7 , Pulse 60 , B/P 106 /49 , Respiratory Rate 20 , O2 SAT 98 , Nasal Cannula, O2 Flow Rate 2.0 . Vital Sign Comment: Stable EKG Rhythm: A-Paced Rhythm change?: N MD Notified?: N - MD Response: Latest Munroe Fall Score: 50 Fall Risk: High Risk Safety Measures: Call light Within Reach, Bed Alarm Zone 1, Side Rails Side Rails x3, Bed position Low and Locked. Fall Precautions: Yellow Socks Yellow Gown Door Sign Patient Fall Education Report given to MICKI/JENNIFER .
--- NOTE | 2020-07-24 19:48 | NUR ---
NURSE NOTES: NURSES NOTES: Received report from JENNIFER jimenez. patient on bed,awake on bed. on room air, no sob. denies any pain at the moment. iv lines on the left wrist, saline lock. revival clerk in placed. incontinent x2. per ursula, " SR 1 avb / a paced on her shift. wound care done on am shift. reiterated to call and ask for assistance to prevent fall or injury. call light and light button within easy reach. bed alarm on.bed locked and in lowest position. will continue plan of care.
[2020-07-24 20:00] VITALS: BP 117/56
[2020-07-24] MEDS: Atorvastatin 20mg tab ORAL SCH (20:09)
[2020-07-24] MEDS: Iron Sucrose 100 MG in NS 55 ML IVPB SCH (20:10)
--- NOTE | 2020-07-24 20:54 | General Progress Note ---
Subjective Allergies: Coded Allergies: No Known Allergies (Verified , 01/23/09) Subjective no new complaints no abdominal complaints d/c planning noted Objective Last 24 Hour Vital Signs Date Time Temp Pulse Resp B/P (MAP) Pulse Ox O2 Delivery O2 Flow Rate FiO2 07/24/20 16:00 97.7 60 20 106/49 (68) 98 07/24/20 16:00 60 07/24/20 12:00 60 07/24/20 12:00 97.9 60 18 122/56 (78) 97 07/24/20 09:00 Room Air 07/24/20 08:00 63 07/24/20 08:00 97.7 61 20 97/48 (64) 96 07/24/20 04:00 60 07/24/20 03:38 98.2 63 20 109/55 (73) 96 07/24/20 00:00 97.8 62 20 113/57 (75) 97 07/24/20 00:00 61 07/23/20 21:47 98.3 07/23/20 21:00 Room Air Intake and Output 07/23/20 07/24/20 19:00 07:00 Intake Total 600 ml Balance 600 ml Intake Oral 600 ml # Voids 3 3 Height (Feet): 6 Height (Inches): 1.00 Weight (Pounds): 180 Objective WDWN NCAT supple CTA RRR abd soft NT, but distended trace edema Assessment/Plan Status: stable, progressing Assessment/Plan: Assessment - Iron deficiency anemia - negative EGD - unable to order capsule endoscopy - SBFT normal - worsening H&H despite FE and EPO concerning ---> consider heme opinion (also for elevated CEA and CA19-9) - jocelyne Pimentel transfusion - lower abdominal TTP, ? etiology - resolved - New Ascites - ? due to (R) sided CHF - r/o malignancy - will consider paracentesis once H&H higher - Elevated Bilirubin - ? due to passive congestion - biliary ductal dilation, r/o downstream obstruction - Cannot order MRCP due to pacer --> will need EUS - Check CEA and CA 19-9 - both elevated - b/l edema and anasarca - azotemia - improved - CHF - COPD - CHF Recommendations - EPO - IV Iron - re check stool OB --> now negative - PPI - Consider Heme-Onc opinion - Pending studies to consider: - colonoscopy - EUS - once Hg 7.0 - paracentesis - to contact medical team in 1 month to remind re-evaluation - OK for d/c from GI standpoint Jacob Deleon MD Jul 24, 2020 20:54
[2020-07-25] VITALS: BP 114/54
[2020-07-25 04:00] VITALS: BP 106/57
--- NOTE | 2020-07-25 06:35 | NUR ---
NURSE HAND-OFF REPORT: Important Events on Shift: REPOSITIONED [id number]. VENOFER GIVEN IV AT HS Patient Status: STABLE Diet: CARDIAC DIET Pending Orders: Pending Results/Labs: Pending MD notification: Latest Vital Signs: Temperature 97.6 , Pulse 60 , B/P 106 /57 , Respiratory Rate 20 , O2 SAT 96 , Nasal Cannula, O2 Flow Rate 2.0 . Vital Sign Comment: EKG Rhythm: A-Paced Rhythm change?: N MD Notified?: N - MD Response: Latest Munroe Fall Score: 50 Fall Risk: High Risk Safety Measures: Call light Within Reach, Bed Alarm Zone 1, Side Rails Side Rails x3, Bed position Low and Locked. Fall Precautions: Yellow Socks Yellow Gown Door Sign Patient Fall Education Addendum: 07/25/20 at 0722 by Jennifer Davila RN REPORT GIVEN TO JENNIFER PLAZA
--- NOTE | 2020-07-25 07:25 | NUR ---
NURSE NOTES: Patient seen in semi fowlers position watching TV with no acute signs of distress and no complaints of pain 0/10. The patient is on room air with oxygen saturation within normal limits. The patient has a L wrist 20G IV that is clean, patent and intact and saline locked. The patient bed is in lowest position, locked, side rails x3, bed alarm in zone 1 and call light within reach.
[2020-07-25 08:00] VITALS: BP 115/80
[2020-07-25] MEDS: Furosemide 40mg tab ORAL SCH (08:55)
[2020-07-25] MEDS: Ascorbic Acid 500mg tab ORAL SCH ×2 (08:56→18:31)
[2020-07-25] MEDS: Tamsulosin 0.4mg cap ORAL SCH (08:56)
[2020-07-25] MEDS: Spironolactone 25mg tab ORAL SCH (08:56)
[2020-07-25] MEDS: HYDROcodone/Acetamin 5/325 tab ORAL PRN (08:57)
[2020-07-25] MEDS: Amiodarone 200mg tab ORAL SCH (08:57)
--- NOTE | 2020-07-25 09:52 | Surgery Progress Note ---
Surgery Progress Note Subjective Additional Comments no acute events feels well looks much better d/c planning possible today Objective Last 24 Hour Vital Signs Date Time Temp Pulse Resp B/P (MAP) Pulse Ox O2 Delivery O2 Flow Rate FiO2 07/25/20 09:00 Room Air 07/25/20 08:00 64 07/25/20 08:00 97.7 61 20 115/80 (92) 98 07/25/20 04:00 60 07/25/20 04:00 97.6 90 20 106/57 (73) 96 07/25/20 00:00 97.9 61 20 114/54 (74) 98 07/25/20 00:00 60 07/24/20 21:00 Room Air 07/24/20 20:40 97.7 07/24/20 20:00 97.9 58 20 117/56 (76) 97 07/24/20 20:00 60 07/24/20 16:00 97.7 60 20 106/49 (68) 98 07/24/20 16:00 60 07/24/20 12:00 60 07/24/20 12:00 97.9 60 18 122/56 (78) 97 I&O Intake and Output 07/24/20 07/25/20 19:00 07:00 Intake Total 600 ml 320 ml Balance 600 ml 320 ml Intake Oral 600 ml 260 ml IV Total 60 ml # Voids 2 3 Dressing: saturated Wound: clean Cardiovascular: RSR Respiratory: decreased breath sounds Abdomen: soft, non-tender, present bowel sounds, non-distended Extremities: no edema, no tenderness, no cyanosis Plan Problems: (1) Anemia (2) Chronic obstructive pulmonary disease (3) Sacral decubitus ulcer Assessment & Plan: Pt presented on admission with multiple Pressure Injuries. Sacral Pressure Injury resolving(L)1.5cm x (W)0.5cm. Base of wound is pink with maceration. Multiple Ulcerations at base of Scrotum . Wounds are resolving(#1) Full thickness Pressure Injury base of wound resolving. Base of wound is 50% mihai 50% pink epithelial(L)2cm x (W)1.2cm. Edges are adherent to base of wound. NO exudate noted. (#2)Wound R testicle resolving. Dasher epithelial at base of wound. No exudate noted (L)2cm x (W)1.2cm. (#3)Wound that is proximally to above documented wounds is also resolving(L)1cm x (W)1cm. Base of wound is 25% mihai ,75% surrounding pink epithelial.. L Heel has resolved. Heel is boggy but blanchable and non-tender when palpated R heel has resolved. R heel is boggy but blanchable and non-tender when palpated. Pt is frequently and heavily incontinent of Bladder. place urinary pouch to minimize further skin breakdown from incontinence. Pt is well endowed and unable to place urinary pouch. Ok to improvise with Fecal pouch to contain incontinence. Fecal pouch in place and attached to drainage bag. DAILY ESTIMATED NEEDS: Needs based on Cardiac, wound 88kg abw 25-35 kcals/kg 5465-3439 total kcals 1.25-1.5 g protein/kg 110-132 g total protein Fluid per MD, on lasix NUTRITION DIAGNOSIS: Increased kcal and pro needs r/t wound healing as evidenced by w/ full thickness scrotal wound, refer to full wound care eval. CURRENT DIET:CARDIAC PO DIET RECOMMENDATIONS: Liberalized Regular diet/ texture as tolerated w/ variable po intake ADDITIONAL RECOMMENDATIONS: 1) CALIBRATED BED SCALE wt 2) On lasix and aldactone, monitor lytes daily 3) Ensure Enlive TID w/ meals 4) BILL BOARD POSTER eval for appropriate texture 5) WOUND CARE: continue MVI and Vit C KELLEY BID added to tray Pt presented on admission with multiple Scrotal Pressure injuries. Wounds are resolving.(#1)Wound at base of Scrotum is superficial with re-epithelialization. NO exudate noted. Edges are adherent to base of wound(L)1.5cm x (W)0.9cm. #2 Wound R testicle (proximally)is resolving. Base of wound is superficial with re-epithelialization.(L)1cm x (W)0.4cm. (#3)Wound R testicle(distally) resolving . Base of wound is superficial, pink with re-epithelialization. edges are adherent to base of wound.(L)1cm x (W)1cm. Small callused area at landen cleft noted(L)1cm x (W)0.5cm. Pt complained site is tender when minimally palpated or when he lies on his back.No erythema fluctuance or induration to surrounding sacrum.Pt confirmed Hx of having Pressure ulcer at source of callusing. R heel is boggy but blanchable. L Heel is boggy with non-blanchable erythema with delineated margins(L)4.5cm x (W)7.5cm.Tender when minimally palpated. Tx.Plan: Apply Moisture Barrier Paste to Scrotal Ulcers. Cover with Optifoam drsg. Change every 3 days and prn. Please cover Scrotal wounds with Optifoam to minimize friction. Apply Moisture Barrier Paste to Sacrum. Cover with Optifoam drsg. Change every 3 days and prn. Apply Cavilon Skin Barrier to Both heels. Cover each heel with Optifoam drsg. Change every 7 days and prn. Reposition at least every 2hours or as tolerated. Off-load heels with Pillow. 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 (16) Hemoptysis (17) Stroke (18) COPD exacerbation (19) Acute exacerbation of CHF (congestive heart failure) (20) Epistaxis (21) Ascites Assessment & Plan: now onset h/h stable lfts noted cea/ca 19-9 elevated no n/v para planned gi note reviewed input appreciated wifes input noted ? hospice if declines Erlin Kearns Jul 25, 2020 09:52
[2020-07-25 12:00] VITALS: BP 116/96
[2020-07-25 16:00] VITALS: BP 119/53
[2020-07-25 16:06] LABS: HEMATOCRIT 25.5 % (42.0-52.0); HEMOGLOBIN 7.5 G/DL (14.2-18.0); MEAN CORPUSCULAR VOLUME 83 FL (80-99); PLATELET COUNT 184 K/UL (150-450); RED BLOOD COUNT 3.05 M/UL (4.70-6.10); WHITE BLOOD COUNT 9.2 K/UL (4.8-10.8)
--- NOTE | 2020-07-25 16:44 | NUR ---
*-*DISCHARGE PLAN*-* PATIENT HAS BEEN ACCEPTED WITH: [facility] P:[phone] S/W RACHELL, WILL SERVICE PATIENT UPON DISCHARGE.
--- NOTE | 2020-07-25 19:26 | NUR ---
NURSE HAND-OFF REPORT: Important Events on Shift:[BM, D/C planning, BP monitoring] Patient Status: [Full code] Diet: [Cardiac] Pending Orders: [N/A] Pending Results/Labs:[N/A] Pending MD notification:[N/A] Latest Vital Signs: Temperature 98.1 , Pulse 83 , B/P 119 /53 , Respiratory Rate 21 , O2 SAT 98 , Nasal Cannula, O2 Flow Rate 2.0 . Vital Sign Comment: [] EKG Rhythm: A-Paced Rhythm change?: N MD Notified?: N - MD Response: Latest Munroe Fall Score: 50 Fall Risk: High Risk Safety Measures: Call light Within Reach, Bed Alarm Zone 1, Side Rails Side Rails x3, Bed position Low and Locked. Fall Precautions: Yellow Socks Yellow Gown Door Sign Patient Fall Education Report given to [JENNIFER Tan].
--- NOTE | 2020-07-25 19:30 | NUR ---
NURSE NOTES: Pt report received from Kike Dean RN. pt remains stable/ asymptomatic. pt is alert and oriented times 3, no change in mentation. pt is showing A pace on the monitor, doctor is aware. pt is sating 98% O2 on Room air, no acute signs symptom of resp distress noted. pt bed is low, locked, armed, call light within reach, bed rails up times 3. will follow plan of care.
[2020-07-25 20:00] VITALS: BP 112/51
[2020-07-25] MEDS: Iron Sucrose 100 MG in NS 55 ML IVPB SCH (20:47)
[2020-07-25] MEDS: Atorvastatin 20mg tab ORAL SCH (20:47)
[2020-07-25] MEDS: Epoetin Alfa-EPBX (NON ESRD)10,000 unit/ml vial SUBQ SCH (20:49)
[2020-07-25] MEDS: Epoetin Alfa-EPBX (NON ESRD) 2000 units/ml vial SUBQ SCH (20:49)
--- NOTE | 2020-07-25 22:03 | NUR ---
NURSE NOTES: For discharge today ETA of ambulance 20:00,followed up called [facility] ,accordingly they'll gonna be here in 25 minutes.Notified patient's Lauren.
--- NOTE | 2020-07-25 22:36 | NUR ---
NURSE NOTES: pt has been DC. IV removed. nuclear monitoring technician off. pt left with all belongings. Vital signs stable for DC.
[2020-07-25] MEDS ORDERED: NS 275ml ONE (22:39)
--- NOTE | 2020-07-25 22:47 | General Progress Note ---
Subjective Allergies: Coded Allergies: No Known Allergies (Verified , 01/23/09) Subjective no new complaints no abdominal complaints d/c planning for today Objective Last 24 Hour Vital Signs Date Time Temp Pulse Resp B/P (MAP) Pulse Ox O2 Delivery O2 Flow Rate FiO2 07/25/20 21:00 Room Air 07/25/20 20:00 61 07/25/20 20:00 97.9 60 20 112/51 (71) 99 07/25/20 16:00 98.1 83 21 119/53 (75) 98 07/25/20 16:00 60 07/25/20 12:00 98.2 71 19 116/96 (103) 97 07/25/20 12:00 61 07/25/20 09:00 Room Air 07/25/20 08:00 64 07/25/20 08:00 97.7 61 20 115/80 (92) 98 07/25/20 04:00 60 07/25/20 04:00 97.6 90 20 106/57 (73) 96 07/25/20 00:00 97.9 61 20 114/54 (74) 98 07/25/20 00:00 60 Intake and Output 07/24/20 07/25/20 19:00 07:00 Intake Total 600 ml 320 ml Balance 600 ml 320 ml Intake Oral 600 ml 260 ml IV Total 60 ml # Voids 2 3 Laboratory Tests 07/25/20 15:45: White Blood Count 9.2, Red Blood Count 3.05L, Hemoglobin 7.5L, Hematocrit 25.5L, Mean Corpuscular Volume 83, Mean Corpuscular Hemoglobin 24.4L, Mean Corpuscular Hemoglobin Concent 29.3L, Red Cell Distribution Width 31.0H, Platelet Count 184, Mean Platelet Volume 8.8, Neutrophils (%) (Auto) , Lymphocytes (%) (Auto) , Monocytes (%) (Auto) , Eosinophils (%) (Auto) , Basophils (%) (Auto) , Differential Total Cells Counted 100, Neutrophils % (Manual) 76H, Lymphocytes % (Manual) 17L, Monocytes % (Manual) 6, Eosinophils % (Manual) 1, Basophils % (Manual) 0, Band Neutrophils 0, Platelet Estimate Adequate, Platelet Morphology Normal, Polychromasia 1+, Hypochromasia 2+, Anisocytosis 3+ Height (Feet): 6 Height (Inches): 1.00 Weight (Pounds): 180 Objective WDWN NCAT supple CTA RRR abd soft NT, but distended trace edema Assessment/Plan Status: stable, progressing Assessment/Plan: Assessment - Iron deficiency anemia - negative EGD - unable to order capsule endoscopy - SBFT normal - worsening H&H despite FE and EPO concerning ---> consider heme opinion (also for elevated CEA and CA19-9) - Loren, declines transfusion - lower abdominal TTP, ? etiology - resolved - New Ascites - ? due to (R) sided CHF - r/o malignancy - will consider paracentesis once H&H higher - Elevated Bilirubin - ? due to passive congestion - biliary ductal dilation, r/o downstream obstruction - Cannot order MRCP due to pacer --> will need EUS - Check CEA and CA 19-9 - both elevated - b/l edema and anasarca - azotemia - improved - CHF - COPD - CHF Recommendations - EPO - IV Iron - re check stool OB --> now negative - PPI - Consider Heme-Onc opinion - Pending studies to consider: - colonoscopy - EUS - once Hg 7.0 - paracentesis - to contact medical team in 1 month to remind re-evaluation - OK for d/c from GI standpoint Jacob Deleon MD Jul 25, 2020 22:47
[2020-07-26] MEDS ORDERED: Tamsulosin 0.4mg cap ORAL SCH (09:00)
--- NOTE | 2020-07-26 15:29 | Discharge Summary ---
DATE OF ADMISSION: 06/25/2020 DATE OF DISCHARGE: 07/25/2020 ADMISSION DIAGNOSES: 1. CHF exacerbation. 2. Acute on chronic renal failure. 3. Toxic metabolic encephalopathy. 4. Urinary tract infection. 5. Severe anemia. 6. History of AAA, status post repair. 7. Chronic kidney disease. 8. Hypertension. 9. History of pacemaker. DISCHARGE DIAGNOSES: 1. CHF exacerbation. 2. Acute on chronic renal failure. 3. Toxic metabolic encephalopathy. 4. Urinary tract infection. 5. Severe anemia. 6. History of AAA, status post repair. 7. Chronic kidney disease. 8. Hypertension. 9. History of pacemaker. HOSPITAL COURSE: The patient was admitted with complaints of generalized weakness, malaise, edema, acute renal failure and altered mental status. He was treated with intravenous Lasix as well as intravenous antibiotics for urinary tract infection. He received Epogen and iron therapy for his anemia. Of note, he is a [employer]. He was offered a transfusion, but declined. He was aware that he had critical anemia that was life-threatening. Again, he declined transfusion. He received high dose Epogen and iron therapy. His numbers did improve. Gastrointestinal and Cardiology evaluations were obtained. The patient underwent an upper endoscopy that showed no obvious source of bleeding. A colonoscopy was deferred. It was offered to the family, but they were concerned about the patient's overall poor functional status and generalized weakness. The patient was maintained on Epogen and iron therapy. On discharge, hemoglobin had improved to 7.5. The patient will be discharged home with home health. He was offered a jail facility, but his declined. He will follow up in one to two weeks in the office. DISCHARGE MEDICATIONS: Please see discharge medication list for discharge medications. DIET: Cardiac, diabetic, renal diet. ACTIVITIES: Ad-amy. Sumit Hallman M.D. DR: MARIAM JOB#: [id number] CC:
--- NOTE | 2020-07-28 22:36 | Cardiology Progress Note ---
Subjective DATE OF SERVICE: Jul 25, 2020 (late entry) Discharge planning in progress - patient and refuse SNF. CA 19-9 elevated. Hemoglobin improved - venofer was resumed 6 days ago. EGD completed 07/11/20 without complication; no bleeding source found. Small bowel series (07/15/20) normal. No CP. No SOB in bedbound state or with limited mobilization. No N/V/D or pain. Appetite fair. Needs almost total assist with care. Objective HEENT: normal ENT inspection RHYTHM: Afib, other - demand Ventric pacing LUNGS: diminished breath sounds CARDIAC: normal rate, normal S1 and S2, irregularly irregular, systolic murmur - 1/6 apical systolic murmur ABDOMEN: normal bowel sounds EXTREMITIES: normal range of motion, +3 edema Assessment/Plan Assessment/Plan Severe anemia with iron deficiency GI bleed Jehovahs witness Ac/chr diastolic CHF now compensated PAFib Pacemaker Hx thoracic aorta repair Elev LFT's may be due to passive congestion COPD Conjunctivitis Abd pain Ac/chr renal failure - improved Orthostatic risk Hypomagnesemia Continue IV iron. Tumor markers pending (CEA/Ca19-9) Continue hydrocodone prn for back pain and CROSS Diuresis adjustment based on clinical status. O2 suppl IV iron and sq EPO Titrate anti-failure rx - decrease for low range BP. No aspirin or anticoag rx; off NSAID's Topical abx IV magnesium repl and oral potassium rx as needed Will need to arrange hospital bed and other assist before can manage at home. Per , wants to defer colonscopy until hb improves further. Made aware of possible malignancy by Dr Deleon. Considering EUS and paracentesis in future as well. DC plan home next 24hrs. Yvan Encarnacion MD Jul 28, 2020 22:36
== END 2020-07-25 22:40 | disposition home health service (06) | DRG 291 ==
LOC: 2E 19:01
PROC: 0DJ08ZZ Inspection of Upper Intestinal Tract, Via Natural or Artificial Opening Endoscopic (ICD-10-PCS; principal; 2020-07-11 15:18)
DX: I13.0 Hypertensive heart and chronic kidney disease with heart failure and stage 1 through stage 4 chronic kidney disease, or unspecified chronic kidney disease (principal); L89.893 Pressure ulcer of other site, stage 3; I50.43 Acute on chronic combined systolic (congestive) and diastolic (congestive) heart failure; G92 Toxic encephalopathy; J18.9 Pneumonia, unspecified organism; N17.9 Acute kidney failure, unspecified; N39.0 Urinary tract infection, site not specified; J44.1 Chronic obstructive pulmonary disease with (acute) exacerbation; K92.2 Gastrointestinal hemorrhage, unspecified; N18.9 Chronic kidney disease, unspecified; I48.0 Paroxysmal atrial fibrillation; Z86.73 Personal history of transient ischemic attack (TIA), and cerebral infarction without residual deficits; D50.9 Iron deficiency anemia, unspecified; Z95.0 Presence of cardiac pacemaker; L89.159 Pressure ulcer of sacral region, unspecified stage; G51.0 Bell's palsy; H10.9 Unspecified conjunctivitis; R32 Unspecified urinary incontinence; E83.42 Hypomagnesemia; R97.0 Elevated carcinoembryonic antigen [CEA]
CPT/HCPCS: 36415; 70450; 74176; 74250; 76700; 80048; 80053; 81001; 82150; 82248; 82270; 82378; 82607; 83540; 83550; 83605; 83690; 83735; 83880; 84134; 84443; 85007; 85025; 85044; 85610; 85651; 85730; 86140; 87086; 87181; 93970; 94003; 94150; J2250; J7030; J8499